=== PATIENT | male | born 1945 | race Two or more races ===

== ENCOUNTER 2018-10-06 13:31 | Inpatient (IN) | payer OTHER ==
[~2018-10-06] VITALS: Ht 170.2 cm; Wt 81.0 kg
[2018-10-06] MEDS ORDERED: SODIUM CHLORIDE 0.9% 500 ML IVB ONE (14:02)
[2018-10-06] MEDS ORDERED: FAMOTIDINE (10MG/ML) 2ML VL IV ONE (14:15)
[2018-10-06] MEDS ORDERED: ONDANSETRON HCL 4 MG/2 ML VIAL IV ONE (14:15)
[2018-10-06] MEDS ORDERED: MORPHINE SULFATE 4 MG/ML SYR/VIAL IV ONE (14:15)
[2018-10-06 15:37] LABS: Albumin 1.5 g/dL (3.4-5.0)
[2018-10-06 15:41] LABS: Bilirubin, Total 0.3 mg/dL (0.2-1.0); Total Protein 4.9 g/dL (6.4-8.2)
[2018-10-06 15:47] LABS: Basophils # (auto) 0 uL; Eosinophils # (auto) 0 uL; Mean Corpuscular Volume 94.6 fL (80.0-100.0); Monocytes # (auto) 0 uL
[2018-10-06 15:52] LABS: Basophils % (auto) 0.3 % (0.0-2.0); Eosinophils % (auto) 0.7 % (0.0-7.0); Lymphocytes % (auto) 15.7 % (10.0-50.0); Monocytes % (auto) 0.7 % (0.0-12.0); Neutrophils % (auto) 82.6 % (37.0-80.0); Nucleated Red Blood Cells % 0.9 %
[2018-10-06 15:53] LABS: Lymphocytes # (auto) 0.2 uL; Neutrophils # (auto) 1.2 uL; Red Blood Cells 4.02 10^6/uL (4.5-5.90)
[2018-10-06 15:54] LABS: Hemoglobin 12.2 g/dL (13.5-17.5); Mean Corpuscular Hemoglobin 30.4 pg (28.0-32.0); Mean Corpuscular Hgb Conc. 32.2 g/dL (32.0-36.0); Platelet Count (auto) 188 10^3/uL (140-450); Red Cell Distribution Width 15.4 % (11.8-14.3)
[2018-10-06 15:56] LABS: White Blood Cell 1.5 10^3/uL (4.4-10.8)
[2018-10-06 16:30] LABS: Lactic Acid w/Reflex 2.8 mmol/L (0.4-2.0)
[2018-10-06] MEDS ORDERED: traMADol HCL 50 MG TAB PO PRN (17:30)
[2018-10-06] MEDS ORDERED: LEVOFLOXACIN 250MG 50 ML IV ONE (17:30)
[2018-10-06] MEDS ORDERED: MORPHINE SULFATE 4 MG/ML SYR/VIAL IV PRN (17:30)
[2018-10-06] MEDS ORDERED: NITROGLYCERIN 0.4 MG SL TAB SL PRN (17:30)
[2018-10-06] MEDS ORDERED: ONDANSETRON HCL 4 MG/2 ML VIAL IV PRN (17:30)
[2018-10-06] MEDS ORDERED: MORPHINE SULF INJ 2 MG/ML SYRINGE 1ML IV PRN (17:30)
[2018-10-06] MEDS ORDERED: ACETAMINOPHEN 500 MG TAB PO PRN (17:30)
[2018-10-06] MEDS ORDERED: TEMAZEPAM 15 MG CAP PO PRN (17:30)
[2018-10-06] MEDS: ACCU-CHEK COMFORT CURVE STRIP VI SCH (20:45)
--- NOTE | 2018-10-06 21:30 | NUR ---
Telemetry admit from [facility] DES[facility] Tyrone admitted to Telemetry unit. Patient oriented to BECKIE MINAYA, primary RN, unit, room, bed, and unit policies regarding patient care and visiting hours. Patient now on continuous telemetry monitoring, tele box # 40 and telemetry reading on arrival to unit is sinus rhythm. Patient placed on bedside oxygen, weighed by bedscale and encouraged to call as needed. All questions and concerns addressed, patient verbalized understanding. Bed is locked in lowest position, side rails x 2 are up, call light is within reach, and bed alarm is on.
[2018-10-06 22:00] VITALS: BP_SYST 160; BP_SYST 90; BP_DIAS 53; BP_DIAS 83
[2018-10-06] MEDS: metroNIDAZOLE 500MG/100ML 100 ML IV SCH (22:00)
--- NOTE | 2018-10-06 23:40 | NUR ---
WOUND PICTURES Patient was noted to have an open skin tear to right forearm. Picture was taken as reference and an optifoam was placed.
[2018-10-06 23:48] VITALS: BP 101/64
[2018-10-07] VITALS (9 sets, daily range): BP systolic 94–109; BP diastolic 56–64
[2018-10-07] MEDS ORDERED: BUPR-40 PO (02:01)
[2018-10-07] MEDS ORDERED: DULO20CA PO (02:01)
[2018-10-07] MEDS ORDERED: ASPI1TAB59 PO (02:01)
[2018-10-07] MEDS ORDERED: ISOS20TA49 PO (02:01)
[2018-10-07] MEDS ORDERED: LISI10TA6 PO (02:01)
[2018-10-07] MEDS ORDERED: TRAM50TA2 PO (02:01)
[2018-10-07] MEDS ORDERED: ATOR20TA50 PO (02:01)
[2018-10-07] MEDS ORDERED: METO25TA62 PO (02:01)
[2018-10-07] MEDS ORDERED: GLIP-116 PO (02:01)
[2018-10-07] MEDS: metroNIDAZOLE 500MG/100ML 100 ML IV SCH ×3 (05:22→22:44)
[2018-10-07] MEDS: ACCU-CHEK COMFORT CURVE STRIP VI SCH ×6 (05:22→20:00)
[2018-10-07] MEDS: DEXTROSE (50%) 50ML SYRG IV PRN ×2 (05:37→13:16)
[2018-10-07 06:03] LABS: Albumin 1.3 g/dL (3.4-5.0); Calcium 6.9 mg/dL (8.5-10.1); Potassium 3.5 mmol/L (3.5-5.1)
[2018-10-07 06:08] LABS: BUN/Creatinine Ratio 5.6; Bilirubin, Total 0.2 mg/dL (0.2-1.0); Total Protein 4.6 g/dL (6.4-8.2)
--- NOTE | 2018-10-07 06:08 | NUR ---
LOW BLOOD SUGAR Patients blood sugar was found to be 53 at 0514. Patient was alert and oriented x 4. Patient denied headache, dizziness, jitteriness, or palpitations. Patient was given three orange juices which he tolerated well. Patient refused eating carmen crackers. After ten minutes blood sugar was rechecked and was found to be 49. A third blood sugar was obtained at 0527 which showed a blood sugar level of 40. Dextrose 50ml was given via IV. Patients blood sugar was rechecked at 0605 and was found to be 105. Patient continues to be alert and oriented x4 and denies headache, dizziness, jitteriness, or palpitations. Bed is locked in lowest position, side rails x 2 are up, call light is within reach, and bed alarm is on.
--- NOTE | 2018-10-07 06:13 | NUR ---
HOSPITALIST PAGED RE: LOW BLOOD SUGAR Hospitalist paged regarding low blood sugar. Patients blood sugar at 0514 was found to be 53. Blood sugar was rechecked at 0606 and was found to be 105. Patient is alert and oriented x 4. Patient denies headache, palpitations, or jitteriness. Awaiting call back.
[2018-10-07 06:14] LABS: Hematocrit 37.4 % (41.0-53.0); Hemoglobin 12.1 g/dL (13.5-17.5); Mean Corpuscular Hgb Conc. 32.3 g/dL (32.0-36.0); Mean Corpuscular Volume 92.9 fL (80.0-100.0); Platelet Count (auto) 160 10^3/uL (140-450); Red Blood Cells 4.03 10^6/uL (4.5-5.90); Red Cell Distribution Width 14.6 % (11.8-14.3); White Blood Cell 15.6 10^3/uL (4.4-10.8)
--- NOTE | 2018-10-07 06:24 | NUR ---
SPOKE WITH DIOGENES DUGAN RE: LOW BLOOD SUGAR AND DIET ORDER Notified DIOGENES Dugan that patients blood sugar level this morning was found to be 53 at 0514. DIOGENES Dugan was made aware that patient was given Dextrose 50ml via IV and upon rechecking patients blood sugar at 0606 it was found to be 105. DIOGENES Dugan is aware that patient is alert and oriented x4 and denies headache, dizziness, or palpitations. Informed DIOGENES Dugan that patient has no diet order and patient denies abdominal pain and states he was sent from the dialysis center due to elevated blood pressure and vomiting. Orders for a consistent carb renal diet received. Order read back and verified. Will implement order as received.
[2018-10-07 06:25] LABS: Basophils % (manual) 0 (0.0-2.0); Eosinophils % (manual) 0 (0-7)
[2018-10-07 06:26] LABS: Blast Cells 0; Promyelocytes % 0; Reactive Lymphocytes 0
--- NOTE | 2018-10-07 07:10 | NUR ---
Opening Shift Note Assumed care of patient, awake and alert. No S/S of distress/SOB or pain. Call light within reach, bed at its lowest position, room free of clutter. Instructed on POC and to call for assist PRN, will continue to monitor.
--- NOTE | 2018-10-07 07:38 | NUR ---
CLOSING SHIFT NOTE Endorsed patient care to Addie MAXWELL.
--- NOTE | 2018-10-07 08:35 | NUR ---
I faxed clinical information to [facility] [phone] including ER notes, H&P, xrays, current labs, current vitals and current medication list.
[2018-10-07] MEDS ORDERED: IOHEXOL 300 MG/ML 100ML BOTTLE IJ ONE (09:17)
[2018-10-07] MEDS ORDERED: PANTOPRAZOLE 40 MG TAB PO SCH (10:00)
[2018-10-07] MEDS ORDERED: LEVOFLOXACIN 250MG 50 ML IV SCH (10:00)
--- NOTE | 2018-10-07 10:03 | NUR ---
PRINTED CIRCUIT BOARD DESIGNER AT BEDSIDE MD LUCAS AT BEDSIDE, AWARE OF PATIENT'S STATUS INCLUDING ABNORMAL LABS, VS. MD AWARE PATIENT HAD CT WITH CONTRAST. PER MD, PATIENT WILL HAVE DIALYSIS TOMORROW. WILL CONT CARE
[2018-10-07] MEDS ORDERED: traMADol HCL 50 MG TAB PO PRN (11:00)
--- NOTE | 2018-10-07 12:17 | NUR ---
HOSPITALIST AT BEDSIDE MD BRASHER AT BEDSIDE, AWARE OF PATIENT'S STATUS, VS INCLUDING DECREASED BP. PT HAD CT WITH CONTRAST, AWAITING RESULT. PER MD PT UNSTABLE FOR TRANSFER TO [facility] AT THIS TIME. CONT CARE
[2018-10-07 12:56] LABS: Band Neutrophils % (manual) 6; Lymphocytes % (manual) 1 (10.0-50.0); Metamyelocytes % 3; Monocytes % (manual) 3 (0-12); Myelocytes % 1
--- NOTE | 2018-10-07 13:02 | NUR ---
DECREASED BS PATIENTS BLOOD SUGAR AT 50, PATIENT PROVIDED WITH JUICE. BS REASSESSED PER PROTOCOL AND IS 47. PATIENT STATES FEELING DIZZY AND LIGHTHEADED "NOT FEEL GOOD", PATIENT GIVEN DEXTROSE PER ORDERED.
--- NOTE | 2018-10-07 13:08 | NUR ---
[facility] JJ LASTING MACHINE OPERATOR BED AT [facility] UPDATED ON POC. PER MD BRASHER "PATIENT UNSTABLE FOR TRANSFER". CONT CARE
--- NOTE | 2018-10-07 14:30 | NUR ---
GI AT BEDSIDE MD NAPOLES AT BEDSIDE. AWAITING ORDERS
--- NOTE | 2018-10-07 14:39 | NUR ---
SPOKE TO FAMILY PT'S DAUGHTER CELSO UPDATED ON PT STATUS AFTER PASSWORD RECEIVED. CONT CARE
[2018-10-07 15:53] LABS: Urine Bacteria NONE SEEN /hpf (None Seen); Urine Blood 2+ /uL (Negative); Urine Hyaline Cast FEW /lpf (0 - 2); Urine Mucus FEW (None Seen); Urine WBC 13 /hpf (0 - 3)
--- NOTE | 2018-10-07 17:21 | NUR ---
Spoke to family spoke to Francheska after password provided. Updated on POC
--- NOTE | 2018-10-07 19:00 | NUR ---
Patient care endorsed endorsed care to Maddison rn. Patient laying down in bed in no acute distress or sob noted. Pt denies any pain. Fall precs in place per protocol.
--- NOTE | 2018-10-07 19:10 | NUR ---
Opening Shift Note Received report from federico Real RN. Assumed care of patient, awake and alert. No S/S of distress/SOB or pain. Instructed on POC and to call for assist PRN, will continue to monitor for changes Q1hr and PRN. Bed placed in lowest position, bed alarm turned on and call light within reach.
[2018-10-07] MEDS: PANTOPRAZOLE 40 MG TAB PO SCH (22:44)
[2018-10-08] VITALS (7 sets, daily range): BP systolic 103–123; BP diastolic 62–93
[2018-10-08] MEDS: ACCU-CHEK COMFORT CURVE STRIP VI SCH ×6 (00:19→20:00)
--- NOTE | 2018-10-08 04:30 | NUR ---
PATIENT'S BLOOD SUGAR IS 61. JUICE GIVEN AND WILL MONITOR.
[2018-10-08] MEDS: metroNIDAZOLE 500MG/100ML 100 ML IV SCH ×3 (06:31→21:52)
[2018-10-08] MEDS ORDERED: SODIUM CHL 0.9% 1000 ML BAG XX ONE (07:00)
--- NOTE | 2018-10-08 07:30 | NUR ---
Opening Shift Note Assumed care of patient, awake and alert. No S/S of distress/SOB or pain. Instructed on POC and to call for assist PRN, will continue to monitor for changes Q1hr and PRN.
--- NOTE | 2018-10-08 07:30 | NUR ---
BLOOD SUGAR RECHECK IS 78. PATIENT IS RESTING IN BED WITH EYES CLOSED. NO DISTRESS NOTED.
--- NOTE | 2018-10-08 08:19 | NUR ---
BLOOD SUGAR 52. PATIENT STATED NOT FEELING HUNGRY BUT WAS ABLE TO DRINK ORANGE JUICE AND A CARTON OF MILK. Addendum: 10/08/18 at 1352 by Edie Narvaez RN ADDENDUM PT DENIES ANY SYMPTOMS OF HYPOGLYCEMIA. PT IS ALERT AND ORIENTED X 4.
[2018-10-08] MEDS: PANTOPRAZOLE 40 MG TAB PO SCH ×2 (10:00→21:52)
--- NOTE | 2018-10-08 10:00 | NUR ---
DR BRASHER AT BEDSIDE. NEW ORDER TO TRANSFER PT TO [facility] AFTER DIALYSIS.
--- NOTE | 2018-10-08 11:40 | NUR ---
PAGED SOCIAL SERVICE RE: TRANSFER TO [facility]
--- NOTE | 2018-10-08 11:53 | NUR ---
SPOKE TO KINGSLEY, SOCIAL SERVICE.
--- NOTE | 2018-10-08 12:30 | NUR ---
BLOOD SUGAR OF 41. PT AWAKE, AOX4. PT STATED HE DOESN'T HAVE AN APPETITE. DENIES ANY SYMPTOMS OF HYPOGLYCEMIA. PT GIVEN DEXTROSE IVP, ORDERED. PT TOLERATED WELL.
[2018-10-08] MEDS: DEXTROSE (50%) 50ML SYRG IV PRN ×2 (12:40→15:31)
--- NOTE | 2018-10-08 13:34 | NUR ---
STILL WAITING FOR DIALYSIS.
--- NOTE | 2018-10-08 13:45 | NUR ---
ABLE TO LOCATE GAMMA OPERATOR BUT PATIENT IS NOT ON HER LIST. PER RN, SHE WILL CALL THE GRAVEL MACHINE OPERATOR AND WILL CALL ME IN 10 MINS.
[2018-10-08 13:53] LABS: Hematocrit 33.2 % (41.0-53.0); Mean Corpuscular Hemoglobin 30.5 pg (28.0-32.0); Mean Corpuscular Hgb Conc. 33.1 g/dL (32.0-36.0); Mean Corpuscular Volume 92.3 fL (80.0-100.0); Platelet Count (auto) 140 10^3/uL (140-450); Red Cell Distribution Width 15.4 % (11.8-14.3); White Blood Cell 21.8 10^3/uL (4.4-10.8)
[2018-10-08 14:08] LABS: Basophils % (manual) 0 (0.0-2.0); Blast Cells 0; Eosinophils % (manual) 0 (0-7); Metamyelocytes % 0; Myelocytes % 0; Promyelocytes % 0; Reactive Lymphocytes 0
[2018-10-08 14:23] LABS: % Iron Saturation 7.4 % (20-55)
[2018-10-08 14:24] LABS: Albumin 1.2 g/dL (3.4-5.0); Potassium 4.5 mmol/L (3.5-5.1)
[2018-10-08 14:27] LABS: BUN/Creatinine Ratio 8.1; Bilirubin, Total 0.3 mg/dL (0.2-1.0); Total Protein 4.6 g/dL (6.4-8.2)
--- NOTE | 2018-10-08 14:45 | NUR ---
WAITING FOR [facility] TO CALL RE: TRANSFER. PAPERWORK HAD BEEN FAXED PER KINGSLEY'S (SOCIAL SERVICE) INSTRUCTION.
--- NOTE | 2018-10-08 15:21 | NUR ---
BS 40 PT ALERT AND ORIENTED. STILL STATING NO APPETITE. GIVEN DEXTROSE IVP ORDERED.
[2018-10-08 15:37] LABS: Band Neutrophils % (manual) 18; Lymphocytes % (manual) 11 (10.0-50.0); Monocytes % (manual) 3 (0-12)
--- NOTE | 2018-10-08 16:01 | NUR ---
CALLED TENA RE: FAXED PAPERWORK. SPOKE TO LEORA. PER LEORA, THEIR TEAM IS STILL PROCESSING THE PAPERS AND WILL GIVE US A CALL SOON THEY'RE READY.
--- NOTE | 2018-10-08 16:11 | NUR ---
BLOOD SUGAR RECHECKED: 94
--- NOTE | 2018-10-08 16:15 | NUR ---
TRANSFER NOTE SPOKE TO DR OLMSTEAD. PER , THERE'S NO AVAILABLE GLASS WOOL BLANKET MACHINE FEEDER AT THIS TIME BUT PT IS STABLE TO TRANSFER WITHOUT GETTING DIALYZED. MADE AWARE OF PT'S LOW BLOOD SUGAR ALL DAY. NEW ORDER RECEIVED AND CARRIED OUT.
[2018-10-08] MEDS ORDERED: DEXTROSE 10% 1,000 ML IV ONE (16:30)
[2018-10-08] MEDS ORDERED: DEXTROSE 10% 1,000 ML IV SCH (16:30)
--- NOTE | 2018-10-08 16:48 | NUR ---
SPOKE TO ERICK- [facility]
--- NOTE | 2018-10-08 19:00 | NUR ---
SPOKE TO TENA GONZALEZ. THERE WILL BE A BED AVAILABLE. SHE WILL CALL BACK FOR A BED NUMBER ONCE IT'S READY. REPORT ENDORSED TO CHRIS NORWOOD RN.
--- NOTE | 2018-10-08 19:30 | NUR ---
Opening Shift Note Received report from federico Irizarry RN. Assumed care of patient, awake and alert. No S/S of distress/SOB or pain. Patient is drowsy. Instructed on POC and to call for assist PRN, will continue to monitor for changes Q1hr and PRN.
--- NOTE | 2018-10-08 20:00 | NUR ---
Blood sugar check is 40mg/dl and 45mg/dl respectively. Juice given.
--- NOTE | 2018-10-08 20:25 | NUR ---
Ivis from [facility] called and gave report.
--- NOTE | 2018-10-08 20:53 | NUR ---
blood sugar checked is 53 mg/dl.
--- NOTE | 2018-10-08 21:09 | NUR ---
blood sugar checked is 81 mg/dl. Patient is alert and oriented, no distress noted, denies pain. Patient signed discharged forms.
--- NOTE | 2018-10-08 21:40 | NUR ---
[facility] arrived and report given to Kadeem transportation job titles. Gathered patient belongings.
--- NOTE | 2018-10-08 21:44 | NUR ---
Discharge instructions given as ordered. Encourage to follow up with PMD as instructed. All questions and concerns addressed. Patient verbalized understanding. Medication reconciliation form completed and copy given to patient. 2 IV to right arm intact and flushes easily. Telemetry unit returned to ICU. Patient taken by [facility] with personal belongings and discharged papers. Report given Kadeem, transportation mechanic, including transport packet, and all questions and concerns addressed. No distress noted at time of departure.
[2018-10-09] MEDS ORDERED: LEVOFLOXACIN 250MG 50 ML IV SCH (10:00)
[2018-10-10 14:08] LABS: Hepatitis A Ab IgM Negative; Hepatitis B Core IgM Negative; Hepatitis B Surface Antigen Negative (Negative)
[2018-10-11 10:57] LABS: Hepatitis C Antibody Positive (Negative)
== END 2018-10-08 21:44 | disposition short-term general hospital (02) | DRG 871 ==
LOC: EDBD 13:31 → ER 13:40 → TELE 17:33 → TELE-WESTW 21:19
PROVIDERS: ADMIT Internal Medicine; ATTEND Family Medicine
DX: A41.9 Sepsis, unspecified organism (principal); N18.6 End stage renal disease; E43 Unspecified severe protein-calorie malnutrition; J18.1 Lobar pneumonia, unspecified organism; I13.2 Hypertensive heart and chronic kidney disease with heart failure and with stage 5 chronic kidney disease, or end stage renal disease; J44.0 Chronic obstructive pulmonary disease with (acute) lower respiratory infection; K86.1 Other chronic pancreatitis; E83.51 Hypocalcemia; E11.22 Type 2 diabetes mellitus with diabetic chronic kidney disease; E11.65 Type 2 diabetes mellitus with hyperglycemia; D63.8 Anemia in other chronic diseases classified elsewhere; E11.649 Type 2 diabetes mellitus with hypoglycemia without coma; I50.9 Heart failure, unspecified; Z82.3 Family history of stroke; Z82.49 Family history of ischemic heart disease and other diseases of the circulatory system; Z68.27 Body mass index [BMI] 27.0-27.9, adult; Z99.2 Dependence on renal dialysis; Z83.3 Family history of diabetes mellitus; Z87.891 Personal history of nicotine dependence; Z90.89 Acquired absence of other organs; Z79.84 Long term (current) use of oral hypoglycemic drugs
CPT/HCPCS: 36415; 36600; 70450; 71045; 74176; 74177; 80053; 80074; 81001; 82140; 82150; 82378; 82728; 82805; 82962; 83036; 83540; 83550; 83605; 83690; 83880; 84484; 85007; 85025; 85027; 87040; 87081; 87086; 93005; 94761; 96361; 96365; 96375; G0378; J2405; J3490; J7042

== ENCOUNTER 2019-07-15 15:43 | Emergency (ER) | payer OTHER ==
[~2019-07-15] VITALS: Ht 167.6 cm; Wt 77.1 kg
[~2019-07-15 15:43] MED LIST: ASPI1TAB59 PO; ATOR20TA50 PO; BUPR-40 PO; DULO20CA PO; GLIP10TA9 PO; ISOS20TA49 PO; LISI10TA6 PO; METO25TA93 PO; TRAM50TA2 PO
[2019-07-15 16:34] LABS: Basophils # (auto) 0 uL; Basophils % (auto) 0.8 % (0.0-2.0); Eosinophils # (auto) 0.2 uL; Eosinophils % (auto) 5.1 % (0.0-7.0); Hematocrit 34.3 % (41.0-53.0); Hemoglobin 11.3 g/dL (13.5-17.5); Lymphocytes % (auto) 25.1 % (10.0-50.0); Mean Corpuscular Hemoglobin 29.8 pg (28.0-32.0); Mean Corpuscular Hgb Conc. 32.9 g/dL (32.0-36.0); Mean Corpuscular Volume 90.4 fL (80.0-100.0); Monocytes # (auto) 0.5 uL; Monocytes % (auto) 12.1 % (0.0-12.0); Neutrophils # (auto) 2.2 uL; Neutrophils % (auto) 56.9 % (37.0-80.0); Nucleated Red Blood Cells % 0.1 %; Platelet Count (auto) 198 10^3/uL (140-450); Red Cell Distribution Width 15.9 % (11.8-14.3); White Blood Cell 3.9 10^3/uL (4.4-10.8)
[2019-07-15 16:49] LABS: Albumin 2.1 g/dL (3.4-5.0); Calcium 7.9 mg/dL (8.5-10.1); Potassium 3.4 mmol/L (3.5-5.1)
[2019-07-15 16:51] LABS: INR 0.94 (0.9-1.15); Partial Thromboplastin Time 24.5 sec (23.64-32.05)
[2019-07-15 16:53] LABS: BUN/Creatinine Ratio 3.8; Bilirubin, Total 0.3 mg/dL (0.2-1.0); Total Protein 6.6 g/dL (6.4-8.2)
[2019-07-15] MEDS ORDERED: POTASSIUM EFFERVESENT TAB 25 MEQ PO ONE (17:15)
[2019-07-15 17:17] VITALS: BP 175/76
== END 2019-07-15 18:42 | disposition home or self-care (01) ==
LOC: ER 15:43 → EDBD 15:43 → ER 18:42
DX: T82.838A Hemorrhage due to vascular prosthetic devices, implants and grafts, initial encounter (principal); E11.22 Type 2 diabetes mellitus with diabetic chronic kidney disease; I13.2 Hypertensive heart and chronic kidney disease with heart failure and with stage 5 chronic kidney disease, or end stage renal disease; I50.9 Heart failure, unspecified; N18.6 End stage renal disease; J44.9 Chronic obstructive pulmonary disease, unspecified; Z87.891 Personal history of nicotine dependence; Z99.2 Dependence on renal dialysis; Z79.899 Other long term (current) drug therapy
CPT/HCPCS: 36415; 80053; 82962; 85025; 85610; 85730; 93005

== ENCOUNTER 2020-05-13 12:20 | Inpatient (IN) | payer OTHER, MEDICAID ==
[~2020-05-13] VITALS: Ht 167.6 cm; Wt 64.9 kg
[~2020-05-13 12:20] MED LIST changes: +LISI-648 PO; -LISI10TA6 PO
[2020-05-13] MEDS ORDERED: ACETAMINOPHEN 500 MG TAB PO ONE (14:30)
[2020-05-13 14:49] LABS: Basophils # (auto) 0 10 ^3/uL (0-0.2); Eosinophils # (auto) 0 10 ^3/uL (0-0.8); Hematocrit 20.3 % (41.0-53.0); Lymphocytes # (auto) 0.2 10 ^3/uL (0.4-5.4); Mean Corpuscular Hemoglobin 31.9 pg (28.0-32.0); Mean Corpuscular Hgb Conc. 33.8 g/dL (32.0-36.0); Monocytes # (auto) 0.2 10 ^3/uL (0-1.3); Neutrophils # (auto) 3.5 10 ^3/uL (1.6-8.6); Red Blood Cells 2.15 10^6/uL (4.5-5.90); White Blood Cell 3.9 10^3/uL (4.4-10.8)
[2020-05-13 14:51] LABS: Basophils % (auto) 0.4 % (0.0-2.0); Eosinophils % (auto) 0.3 % (0.0-7.0); Lymphocytes % (auto) 5.7 % (10.0-50.0); Mean Corpuscular Volume 94.5 fL (80.0-100.0); Monocytes % (auto) 4.3 % (0.0-12.0); Neutrophils % (auto) 89.3 % (37.0-80.0); Nucleated Red Blood Cells % 0.1 %; Platelet Count (auto) 141 10^3/uL (140-450); Red Cell Distribution Width 16.7 % (11.8-14.3)
[2020-05-13 15:06] LABS: Albumin 2.6 g/dL (3.4-5.0); Calcium 7.9 mg/dL (8.5-10.1); Magnesium 2.6 mg/dL (1.6-2.6); Potassium 4.1 mmol/L (3.5-5.1)
[2020-05-13 15:09] LABS: INR 1.03 (0.9-1.15)
[2020-05-13 15:11] LABS: BUN/Creatinine Ratio 5.1; Bilirubin, Total 0.4 mg/dL (0.2-1.0); Total Protein 7.2 g/dL (6.4-8.2)
[2020-05-13] MEDS ORDERED: ASPirin 325 MG TAB PO ONE (15:45)
[2020-05-13] MEDS ORDERED: ENOXAPARIN SOD 100 MG/1 ML SYRINGE SC ONE (15:45)
[2020-05-13 16:20] LABS: Hemoglobin 6.8 g/dL (13.5-17.5)
[2020-05-13] MEDS ORDERED: NITROGLYCERIN 0.4MG/HR TOPICAL PATCH TD ONE (18:15)
[2020-05-13] MEDS ORDERED: NITROGLYCERIN 0.4 MG SL TAB SL PRN (18:15)
[2020-05-13] MEDS ORDERED: MORPHINE SULF INJ 2 MG/ML SYRINGE 1ML IV PRN (18:15)
[2020-05-13] MEDS ORDERED: ACETAMINOPHEN 500 MG TAB PO PRN (18:15)
[2020-05-13] MEDS ORDERED: CLOPIDOGREL 300 MG TAB PO ONE (18:15)
[2020-05-13] MEDS ORDERED: ENOXAPARIN SOD 80 MG/0.8ML SYRINGE SC ONE (18:45)
[2020-05-13] MEDS: METOPROLOL TARTRATE 25 MG TAB PO SCH (22:00)
[2020-05-13] MEDS: BUDESONIDE (INHALATION) 180 MCG IH IN SCH (22:00)
[2020-05-13] MEDS: ATORVASTATIN 20 MG TAB PO SCH (23:25)
[2020-05-13] MEDS: MORPHINE SULF INJ 2 MG/ML SYRINGE 1ML IV PRN (23:38)
[2020-05-13] MEDS: ONDANSETRON HCL 4 MG/2 ML VIAL IV PRN (23:38)
[2020-05-14] VITALS (7 sets, daily range): BP systolic 103–120; BP diastolic 42–58
[2020-05-14] MEDS: NITROGLYCERIN 0.4MG/HR TOPICAL PATCH TD SCH (10:00)
[2020-05-14] MEDS: METOPROLOL TARTRATE 25 MG TAB PO SCH ×2 (10:00→22:36)
[2020-05-14] MEDS: CLOPIDOGREL BISULFATE 75 MG TAB PO SCH (11:30)
[2020-05-14] MEDS: FAMOTIDINE 20 MG TAB PO SCH (11:30)
[2020-05-14] MEDS: ASPirin-EC 81 mg tab PO SCH (11:30)
[2020-05-14] MEDS: ZINC SULFATE 220mg CAP or TAB PO SCH (11:30)
[2020-05-14] MEDS: ASCORBIC ACID 1,000 MG TAB PO SCH (11:31)
[2020-05-14] MEDS: cefTRIAXone 1GM/50ML D5W 50 ML IV SCH (12:22)
[2020-05-14] MEDS: CHOLECALCIFEROL (VITD3) 2,000 UNIT CAP PO SCH (12:24)
[2020-05-14] MEDS: AZITHROMYCIN 500MG/ 250ML 250 ML IV SCH (12:40)
[2020-05-14] MEDS: DexAMETHasone SOD PHOS 10MG/1ML VIAL INJ IV SCH (12:40)
[2020-05-14] MEDS: ENOXAPARIN SOD 80 MG/0.8ML SYRINGE SC SCH (16:58)
[2020-05-14] MEDS: BUDESONIDE (INHALATION) 180 MCG IH IN SCH (22:00)
[2020-05-14] MEDS: ATORVASTATIN 20 MG TAB PO SCH (22:45)
[2020-05-15] MEDS ORDERED: LORazepam 2MG/ML-1ML VIAL IV ONE (03:45)
[2020-05-15 04:16] LABS: Basophils # (auto) 0 10 ^3/uL (0-0.2); Basophils % (auto) 0.4 % (0.0-2.0); Eosinophils # (auto) 0 10 ^3/uL (0-0.8); Hematocrit 22.4 % (41.0-53.0); Hemoglobin 7.5 g/dL (13.5-17.5); Lymphocytes # (auto) 0.2 10 ^3/uL (0.4-5.4); Lymphocytes % (auto) 7.8 % (10.0-50.0); Mean Corpuscular Hemoglobin 30.4 pg (28.0-32.0); Mean Corpuscular Hgb Conc. 33.6 g/dL (32.0-36.0); Mean Corpuscular Volume 90.5 fL (80.0-100.0); Monocytes # (auto) 0.2 10 ^3/uL (0-1.3); Monocytes % (auto) 6.5 % (0.0-12.0); Neutrophils # (auto) 2.2 10 ^3/uL (1.6-8.6); Neutrophils % (auto) 85.3 % (37.0-80.0); Nucleated Red Blood Cells % 0.2 %; Platelet Count (auto) 119 10^3/uL (140-450); Red Blood Cells 2.48 10^6/uL (4.5-5.90); Red Cell Distribution Width 19.5 % (11.8-14.3); White Blood Cell 2.6 10^3/uL (4.4-10.8)
[2020-05-15 04:35] LABS: Potassium 4.9 mmol/L (3.5-5.1)
[2020-05-15 04:42] LABS: Albumin 2.1 g/dL (3.4-5.0); BUN/Creatinine Ratio 6.7; Bilirubin, Total 0.4 mg/dL (0.2-1.0); Calcium 8.1 mg/dL (8.5-10.1); Magnesium 2.8 mg/dL (1.6-2.6); Total Protein 6.3 g/dL (6.4-8.2)
[2020-05-15 05:27] LABS: % Iron Saturation 25.2 % (20-55)
[2020-05-15] MEDS ORDERED: SODIUM CHL 0.9% 1000 ML BAG XX ONE (07:00)
[2020-05-15] MEDS: cefTRIAXone 1GM/50ML D5W 50 ML IV SCH (08:08)
[2020-05-15] MEDS: BUDESONIDE (INHALATION) 180 MCG IH IN SCH ×2 (08:14→22:00)
[2020-05-15] MEDS: DexAMETHasone SOD PHOS 10MG/1ML VIAL INJ IV SCH (10:29)
[2020-05-15] MEDS: ZINC SULFATE 220mg CAP or TAB PO SCH (10:30)
[2020-05-15] MEDS: AZITHROMYCIN 500MG/ 250ML 250 ML IV SCH (10:30)
[2020-05-15] MEDS: METOPROLOL TARTRATE 25 MG TAB PO SCH ×2 (10:31→21:46)
[2020-05-15] MEDS: ASPirin-EC 81 mg tab PO SCH (10:31)
[2020-05-15] MEDS: NITROGLYCERIN 0.4MG/HR TOPICAL PATCH TD SCH (10:32)
[2020-05-15] MEDS: CLOPIDOGREL BISULFATE 75 MG TAB PO SCH (10:32)
[2020-05-15] MEDS: ASCORBIC ACID 1,000 MG TAB PO SCH (10:32)
[2020-05-15] MEDS: CHOLECALCIFEROL (VITD3) 2,000 UNIT CAP PO SCH (10:45)
[2020-05-15] MEDS: ENOXAPARIN SOD 80 MG/0.8ML SYRINGE SC SCH (19:01)
[2020-05-15] MEDS ORDERED: EPOETIN ALFA 10,000 UNIT/1 ML VIAL SC ONE (21:00)
[2020-05-15] MEDS: ATORVASTATIN 20 MG TAB PO SCH (21:46)
[2020-05-16 05:11] LABS: Basophils # (auto) 0 10 ^3/uL (0-0.2); Eosinophils # (auto) 0 10 ^3/uL (0-0.8); Hematocrit 23.2 % (41.0-53.0); Hemoglobin 7.7 g/dL (13.5-17.5); Lymphocytes # (auto) 0.3 10 ^3/uL (0.4-5.4); Mean Corpuscular Hemoglobin 30.4 pg (28.0-32.0); Mean Corpuscular Volume 91.3 fL (80.0-100.0); Monocytes # (auto) 0.2 10 ^3/uL (0-1.3); Red Blood Cells 2.54 10^6/uL (4.5-5.90)
[2020-05-16 05:16] LABS: Basophils % (auto) 0.2 % (0.0-2.0); Eosinophils % (auto) 0.4 % (0.0-7.0); Mean Corpuscular Hgb Conc. 33.4 g/dL (32.0-36.0); Monocytes % (auto) 3.6 % (0.0-12.0); Neutrophils # (auto) 4.7 10 ^3/uL (1.6-8.6); Neutrophils % (auto) 89.8 % (37.0-80.0); Nucleated Red Blood Cells % 0.3 %; Platelet Count (auto) 157 10^3/uL (140-450); Red Cell Distribution Width 19.2 % (11.8-14.3); White Blood Cell 5.2 10^3/uL (4.4-10.8)
[2020-05-16] MEDS: HYDROcodone-ACET 5/325MG TAB PO PRN (05:16)
[2020-05-16 05:24] LABS: BUN/Creatinine Ratio 6.3
[2020-05-16] MEDS: ASPirin-EC 81 mg tab PO SCH (08:01)
[2020-05-16] MEDS: AZITHROMYCIN 500MG/ 250ML 250 ML IV SCH (08:01)
[2020-05-16] MEDS: METOPROLOL TARTRATE 25 MG TAB PO SCH (08:01)
[2020-05-16] MEDS: cefTRIAXone 1GM/50ML D5W 50 ML IV SCH (08:01)
[2020-05-16] MEDS: DexAMETHasone SOD PHOS 10MG/1ML VIAL INJ IV SCH (08:01)
[2020-05-16] MEDS: ASCORBIC ACID 1,000 MG TAB PO SCH (08:02)
[2020-05-16] MEDS: NITROGLYCERIN 0.4MG/HR TOPICAL PATCH TD SCH (08:02)
[2020-05-16] MEDS: FAMOTIDINE 20 MG TAB PO SCH (08:02)
[2020-05-16] MEDS: CLOPIDOGREL BISULFATE 75 MG TAB PO SCH (08:02)
[2020-05-16] MEDS: CHOLECALCIFEROL (VITD3) 2,000 UNIT CAP PO SCH (08:02)
[2020-05-16] MEDS: ZINC SULFATE 220mg CAP or TAB PO SCH (10:00)
[2020-05-16] MEDS: BUDESONIDE (INHALATION) 180 MCG IH IN SCH ×2 (10:00→22:00)
[2020-05-16] MEDS: ENOXAPARIN SOD 80 MG/0.8ML SYRINGE SC SCH (17:00)
[2020-05-17] MEDS: ATORVASTATIN 20 MG TAB PO SCH ×2 (02:32→20:33)
[2020-05-17] MEDS: METOPROLOL TARTRATE 25 MG TAB PO SCH ×3 (02:33→20:32)
[2020-05-17 06:49] LABS: Basophils # (auto) 0 10 ^3/uL (0-0.2); Basophils % (auto) 0.1 % (0.0-2.0); Eosinophils # (auto) 0 10 ^3/uL (0-0.8); Hemoglobin 8.4 g/dL (13.5-17.5); Lymphocytes # (auto) 0.5 10 ^3/uL (0.4-5.4); Monocytes # (auto) 0.3 10 ^3/uL (0-1.3); Neutrophils # (auto) 3.7 10 ^3/uL (1.6-8.6); Nucleated Red Blood Cells % 0.3 %; Red Blood Cells 2.75 10^6/uL (4.5-5.90)
[2020-05-17 06:59] LABS: Hematocrit 24.7 % (41.0-53.0); Lymphocytes % (auto) 11.2 % (10.0-50.0); Mean Corpuscular Hemoglobin 30.5 pg (28.0-32.0); Mean Corpuscular Hgb Conc. 34.1 g/dL (32.0-36.0); Mean Corpuscular Volume 89.5 fL (80.0-100.0); Monocytes % (auto) 7.3 % (0.0-12.0); Neutrophils % (auto) 81.4 % (37.0-80.0); Platelet Count (auto) 186 10^3/uL (140-450); Red Cell Distribution Width 18.5 % (11.8-14.3); White Blood Cell 4.6 10^3/uL (4.4-10.8)
[2020-05-17 07:05] LABS: Potassium 4.2 mmol/L (3.5-5.1)
[2020-05-17 07:34] LABS: BUN/Creatinine Ratio 7.4; Calcium 8.4 mg/dL (8.5-10.1); Magnesium 2.8 mg/dL (1.6-2.6)
[2020-05-17] MEDS: BUDESONIDE (INHALATION) 180 MCG IH IN SCH ×2 (10:00→22:00)
[2020-05-17] MEDS: NITROGLYCERIN 0.4MG/HR TOPICAL PATCH TD SCH (10:00)
[2020-05-17] MEDS: cefTRIAXone 1GM/50ML D5W 50 ML IV SCH (12:08)
[2020-05-17] MEDS: AZITHROMYCIN 500MG/ 250ML 250 ML IV SCH (12:08)
[2020-05-17] MEDS: DexAMETHasone SOD PHOS 10MG/1ML VIAL INJ IV SCH (12:08)
[2020-05-17] MEDS: CLOPIDOGREL BISULFATE 75 MG TAB PO SCH (12:09)
[2020-05-17] MEDS: ASCORBIC ACID 1,000 MG TAB PO SCH (12:09)
[2020-05-17] MEDS: ASPirin-EC 81 mg tab PO SCH (12:09)
[2020-05-17] MEDS: ZINC SULFATE 220mg CAP or TAB PO SCH (12:09)
[2020-05-17] MEDS: CHOLECALCIFEROL (VITD3) 2,000 UNIT CAP PO SCH (12:09)
[2020-05-17] MEDS: ENOXAPARIN SOD 80 MG/0.8ML SYRINGE SC SCH (19:09)
[2020-05-17] MEDS: HYDROcodone-ACET 5/325MG TAB PO PRN (22:11)
[2020-05-18] MEDS ORDERED: LORazepam 2MG/ML-1ML VIAL ONE ×2 (03:21→05:52)
[2020-05-18] MEDS ORDERED: LORazepam 2MG/ML-1ML VIAL IV ONE (03:30)
[2020-05-18] MEDS: MORPHINE SULF INJ 2 MG/ML SYRINGE 1ML IV PRN ×3 (04:29→23:48)
[2020-05-18] MEDS ORDERED: diphenhdrAMINE HCL 50 MG/1 ML VL ONE (05:52)
[2020-05-18] MEDS ORDERED: HALOPERIDOL LACTATE 5 MG/ML INJ VIAL ONE (05:52)
[2020-05-18] MEDS ORDERED: SODIUM CHL 0.9% 1000 ML BAG XX ONE (07:00)
[2020-05-18 08:21] LABS: Hematocrit 18.8 % (41.0-53.0)
[2020-05-18 08:40] LABS: Hemoglobin 6.4 g/dL (13.5-17.5)
[2020-05-18 08:58] LABS: % Iron Saturation 36.5 % (20-55)
[2020-05-18] MEDS: FAMOTIDINE 20 MG TAB PO SCH (09:45)
[2020-05-18] MEDS: AZITHROMYCIN 500MG/ 250ML 250 ML IV SCH (09:45)
[2020-05-18] MEDS: NITROGLYCERIN 0.4MG/HR TOPICAL PATCH TD SCH (09:45)
[2020-05-18] MEDS: METOPROLOL TARTRATE 25 MG TAB PO SCH ×2 (09:45→22:00)
[2020-05-18] MEDS: ASPirin-EC 81 mg tab PO SCH (09:45)
[2020-05-18] MEDS: CHOLECALCIFEROL (VITD3) 2,000 UNIT CAP PO SCH (09:45)
[2020-05-18] MEDS: ZINC SULFATE 220mg CAP or TAB PO SCH (09:45)
[2020-05-18] MEDS: CLOPIDOGREL BISULFATE 75 MG TAB PO SCH (09:45)
[2020-05-18] MEDS: ASCORBIC ACID 1,000 MG TAB PO SCH (09:45)
[2020-05-18] MEDS: cefTRIAXone 1GM/50ML D5W 50 ML IV SCH (09:45)
[2020-05-18] MEDS: DexAMETHasone SOD PHOS 10MG/1ML VIAL INJ IV SCH (09:45)
[2020-05-18] MEDS: BUDESONIDE (INHALATION) 180 MCG IH IN SCH ×2 (10:00→22:00)
[2020-05-18] MEDS: HALOPERIDOL LACTATE 5 MG/ML INJ VIAL IM PRN ×2 (13:02→23:49)
[2020-05-18] MEDS: ENOXAPARIN SOD 80 MG/0.8ML SYRINGE SC SCH (17:00)
[2020-05-18] MEDS: ONDANSETRON HCL 4 MG/2 ML VIAL IV PRN ×2 (19:12→23:48)
[2020-05-18] MEDS ORDERED: EPOETIN ALFA 10,000 UNIT/1 ML VIAL SC ONE (21:00)
[2020-05-18] MEDS: ATORVASTATIN 20 MG TAB PO SCH (22:00)
[2020-05-19 03:34] LABS: Basophils # (auto) 0 10 ^3/uL (0-0.2); Basophils % (auto) 0.1 % (0.0-2.0); Eosinophils # (auto) 0 10 ^3/uL (0-0.8); Hematocrit 17.4 % (41.0-53.0); Lymphocytes # (auto) 0.3 10 ^3/uL (0.4-5.4); Lymphocytes % (auto) 5.9 % (10.0-50.0); Mean Corpuscular Hgb Conc. 34.7 g/dL (32.0-36.0); Mean Corpuscular Volume 89.6 fL (80.0-100.0); Monocytes # (auto) 0.5 10 ^3/uL (0-1.3); Monocytes % (auto) 9.6 % (0.0-12.0); Neutrophils # (auto) 4.8 10 ^3/uL (1.6-8.6); Neutrophils % (auto) 84.4 % (37.0-80.0); Nucleated Red Blood Cells % 0.3 %; Platelet Count (auto) 179 10^3/uL (140-450); Red Blood Cells 1.94 10^6/uL (4.5-5.90); Red Cell Distribution Width 18.5 % (11.8-14.3); White Blood Cell 5.6 10^3/uL (4.4-10.8)
[2020-05-19 04:04] LABS: BUN/Creatinine Ratio 7.6; Calcium 8.2 mg/dL (8.5-10.1); Magnesium 2.6 mg/dL (1.6-2.6); Potassium 4.5 mmol/L (3.5-5.1)
[2020-05-19] MEDS: HALOPERIDOL LACTATE 5 MG/ML INJ VIAL IM PRN ×2 (05:57→12:00)
[2020-05-19] MEDS: MORPHINE SULF INJ 2 MG/ML SYRINGE 1ML IV PRN ×2 (05:57→20:05)
[2020-05-19] MEDS: ONDANSETRON HCL 4 MG/2 ML VIAL IV PRN ×2 (05:57→20:05)
[2020-05-19] MEDS: ASPirin-EC 81 mg tab PO SCH (08:20)
[2020-05-19] MEDS: cefTRIAXone 1GM/50ML D5W 50 ML IV SCH (08:20)
[2020-05-19] MEDS: ZINC SULFATE 220mg CAP or TAB PO SCH (08:20)
[2020-05-19] MEDS: ASCORBIC ACID 1,000 MG TAB PO SCH (08:21)
[2020-05-19] MEDS: CHOLECALCIFEROL (VITD3) 2,000 UNIT CAP PO SCH (08:21)
[2020-05-19] MEDS: METOPROLOL TARTRATE 25 MG TAB PO SCH ×2 (08:21→22:50)
[2020-05-19] MEDS: CLOPIDOGREL BISULFATE 75 MG TAB PO SCH (08:21)
[2020-05-19] MEDS: DexAMETHasone SOD PHOS 10MG/1ML VIAL INJ IV SCH (09:04)
[2020-05-19] MEDS: NITROGLYCERIN 0.4MG/HR TOPICAL PATCH TD SCH (09:04)
[2020-05-19] MEDS: AZITHROMYCIN 500MG/ 250ML 250 ML IV SCH (09:04)
[2020-05-19] MEDS: BUDESONIDE (INHALATION) 180 MCG IH IN SCH ×2 (12:28→22:00)
[2020-05-19] MEDS ORDERED: LORazepam 2MG/ML-1ML VIAL IV ONE (15:15)
[2020-05-19] MEDS: hydrALAZINE HCL 20 MG/ML VL IV PRN ×2 (16:48→22:56)
[2020-05-19] MEDS: ENOXAPARIN SOD 80 MG/0.8ML SYRINGE SC SCH (17:00)
[2020-05-19] MEDS: ATORVASTATIN 20 MG TAB PO SCH (22:50)
[2020-05-20] MEDS: HALOPERIDOL LACTATE 5 MG/ML INJ VIAL IM PRN ×2 (00:31→14:17)
[2020-05-20] MEDS: hydrALAZINE HCL 20 MG/ML VL IV PRN ×2 (04:18→16:43)
[2020-05-20 05:15] LABS: Basophils # (auto) 0 10 ^3/uL (0-0.2); Eosinophils # (auto) 0 10 ^3/uL (0-0.8); Lymphocytes # (auto) 0.4 10 ^3/uL (0.4-5.4); Monocytes # (auto) 0.8 10 ^3/uL (0-1.3); Nucleated Red Blood Cells % 0.3 %; Red Blood Cells 2.13 10^6/uL (4.5-5.90)
[2020-05-20 05:22] LABS: Basophils % (auto) 0.1 % (0.0-2.0); Hematocrit 19.1 % (41.0-53.0); Lymphocytes % (auto) 4.4 % (10.0-50.0); Mean Corpuscular Hemoglobin 30.3 pg (28.0-32.0); Mean Corpuscular Hgb Conc. 33.9 g/dL (32.0-36.0); Mean Corpuscular Volume 89.6 fL (80.0-100.0); Monocytes % (auto) 8.6 % (0.0-12.0); Neutrophils # (auto) 8.1 10 ^3/uL (1.6-8.6); Neutrophils % (auto) 86.9 % (37.0-80.0); Platelet Count (auto) 235 10^3/uL (140-450); Red Cell Distribution Width 18.8 % (11.8-14.3); White Blood Cell 9.4 10^3/uL (4.4-10.8)
[2020-05-20 05:28] LABS: BUN/Creatinine Ratio 8.2; Calcium 8.4 mg/dL (8.5-10.1); Magnesium 2.9 mg/dL (1.6-2.6); Potassium 4.9 mmol/L (3.5-5.1)
[2020-05-20 05:56] LABS: Hemoglobin 6.5 g/dL (13.5-17.5)
[2020-05-20] MEDS ORDERED: SODIUM CHL 0.9% 1000 ML BAG XX ONE (07:00)
[2020-05-20] MEDS: DexAMETHasone SOD PHOS 10MG/1ML VIAL INJ IV SCH (08:38)
[2020-05-20] MEDS: ZINC SULFATE 220mg CAP or TAB PO SCH (08:38)
[2020-05-20] MEDS: cefTRIAXone 1GM/50ML D5W 50 ML IV SCH (08:38)
[2020-05-20] MEDS: ASPirin-EC 81 mg tab PO SCH (08:39)
[2020-05-20] MEDS: METOPROLOL TARTRATE 25 MG TAB PO SCH ×2 (08:39→21:59)
[2020-05-20] MEDS: CLOPIDOGREL BISULFATE 75 MG TAB PO SCH (08:39)
[2020-05-20] MEDS: FAMOTIDINE 20 MG TAB PO SCH (08:39)
[2020-05-20] MEDS: ASCORBIC ACID 1,000 MG TAB PO SCH (08:39)
[2020-05-20] MEDS: CHOLECALCIFEROL (VITD3) 2,000 UNIT CAP PO SCH (08:39)
[2020-05-20] MEDS: NITROGLYCERIN 0.4MG/HR TOPICAL PATCH TD SCH (09:21)
[2020-05-20] MEDS: AZITHROMYCIN 500MG/ 250ML 250 ML IV SCH (09:21)
[2020-05-20] MEDS: BUDESONIDE (INHALATION) 180 MCG IH IN SCH ×2 (09:37→19:41)
[2020-05-20 11:15] VITALS: BP 183/62
[2020-05-20 11:30] VITALS: BP 177/67
[2020-05-20 11:41] VITALS: BP 194/71
[2020-05-20 11:50] VITALS: BP 187/66
[2020-05-20 12:05] VITALS: BP 204/77
[2020-05-20 12:30] VITALS: BP 190/67
[2020-05-20] MEDS: LORazepam 2MG/ML-1ML VIAL IV PRN (14:17)
[2020-05-20] MEDS: ENOXAPARIN SOD 80 MG/0.8ML SYRINGE SC SCH (16:22)
[2020-05-20 17:14] LABS: Hematocrit 28.2 % (41.0-53.0); Hemoglobin 9.7 g/dL (13.5-17.5)
[2020-05-20 17:38] LABS: BUN/Creatinine Ratio 7.4; Calcium 8.3 mg/dL (8.5-10.1); Potassium 4.4 mmol/L (3.5-5.1)
[2020-05-20] MEDS: ALBUTEROL SULF HFA 90MCG INH 200DOSE IN PRN (19:41)
[2020-05-20] MEDS ORDERED: EPOETIN ALFA 10,000 UNIT/1 ML VIAL SC ONE (21:00)
[2020-05-20] MEDS: ATORVASTATIN 20 MG TAB PO SCH (21:59)
[2020-05-21 06:19] LABS: Basophils # (auto) 0 10 ^3/uL (0-0.2); Basophils % (auto) 0.1 % (0.0-2.0); Eosinophils # (auto) 0 10 ^3/uL (0-0.8); Hematocrit 26.3 % (41.0-53.0); Hemoglobin 9.3 g/dL (13.5-17.5); Lymphocytes # (auto) 0.3 10 ^3/uL (0.4-5.4); Lymphocytes % (auto) 4.6 % (10.0-50.0); Mean Corpuscular Hemoglobin 31.4 pg (28.0-32.0); Mean Corpuscular Hgb Conc. 35.3 g/dL (32.0-36.0); Mean Corpuscular Volume 88.9 fL (80.0-100.0); Monocytes # (auto) 0.5 10 ^3/uL (0-1.3); Monocytes % (auto) 8.6 % (0.0-12.0); Neutrophils # (auto) 5.2 10 ^3/uL (1.6-8.6); Neutrophils % (auto) 86.7 % (37.0-80.0); Nucleated Red Blood Cells % 0.3 %; Platelet Count (auto) 223 10^3/uL (140-450); Red Blood Cells 2.96 10^6/uL (4.5-5.90); Red Cell Distribution Width 16.7 % (11.8-14.3)
[2020-05-21 06:45] LABS: Potassium 4.1 mmol/L (3.5-5.1)
[2020-05-21 07:27] LABS: BUN/Creatinine Ratio 7.9
[2020-05-21] MEDS: BUDESONIDE (INHALATION) 180 MCG IH IN SCH ×2 (07:30→18:30)
[2020-05-21 07:33] LABS: Calcium 8.2 mg/dL (8.5-10.1); Magnesium 2.6 mg/dL (1.6-2.6)
[2020-05-21] MEDS: AZITHROMYCIN 500MG/ 250ML 250 ML IV SCH (10:00)
[2020-05-21] MEDS: NITROGLYCERIN 0.4MG/HR TOPICAL PATCH TD SCH (10:45)
[2020-05-21] MEDS: CHOLECALCIFEROL (VITD3) 2,000 UNIT CAP PO SCH (10:45)
[2020-05-21] MEDS: METOPROLOL TARTRATE 25 MG TAB PO SCH ×2 (10:46→21:26)
[2020-05-21] MEDS: ASCORBIC ACID 1,000 MG TAB PO SCH (10:46)
[2020-05-21] MEDS: CLOPIDOGREL BISULFATE 75 MG TAB PO SCH (10:46)
[2020-05-21] MEDS: ZINC SULFATE 220mg CAP or TAB PO SCH (10:46)
[2020-05-21] MEDS: ASPirin-EC 81 mg tab PO SCH (10:46)
[2020-05-21] MEDS: DexAMETHasone SOD PHOS 10MG/1ML VIAL INJ IV SCH (11:04)
[2020-05-21] MEDS: cefTRIAXone 1GM/50ML D5W 50 ML IV SCH (11:21)
[2020-05-21] MEDS: ENOXAPARIN SOD 80 MG/0.8ML SYRINGE SC SCH (17:39)
[2020-05-21] MEDS: ALBUTEROL SULF HFA 90MCG INH 200DOSE IN PRN (20:26)
[2020-05-21] MEDS: ATORVASTATIN 20 MG TAB PO SCH (21:26)
[2020-05-22 05:59] LABS: Basophils # (auto) 0 10 ^3/uL (0-0.2); Eosinophils # (auto) 0 10 ^3/uL (0-0.8); Hematocrit 26.6 % (41.0-53.0); Hemoglobin 9.2 g/dL (13.5-17.5); Lymphocytes # (auto) 0.2 10 ^3/uL (0.4-5.4); Lymphocytes % (auto) 3.6 % (10.0-50.0); Mean Corpuscular Hemoglobin 30.8 pg (28.0-32.0); Mean Corpuscular Hgb Conc. 34.4 g/dL (32.0-36.0); Mean Corpuscular Volume 89.4 fL (80.0-100.0); Monocytes # (auto) 0.6 10 ^3/uL (0-1.3); Monocytes % (auto) 10.6 % (0.0-12.0); Neutrophils # (auto) 4.6 10 ^3/uL (1.6-8.6); Neutrophils % (auto) 85.8 % (37.0-80.0); Nucleated Red Blood Cells % 0.4 %; Platelet Count (auto) 223 10^3/uL (140-450); Red Blood Cells 2.98 10^6/uL (4.5-5.90); Red Cell Distribution Width 17.7 % (11.8-14.3); White Blood Cell 5.4 10^3/uL (4.4-10.8)
[2020-05-22] MEDS ORDERED: SODIUM CHL 0.9% 1000 ML BAG XX ONE (07:00)
[2020-05-22] MEDS: BUDESONIDE (INHALATION) 180 MCG IH IN SCH ×2 (07:03→22:02)
[2020-05-22] MEDS: ALBUTEROL SULF HFA 90MCG INH 200DOSE IN PRN ×3 (08:08→22:03)
[2020-05-22] MEDS: cefTRIAXone 1GM/50ML D5W 50 ML IV SCH (09:00)
[2020-05-22] MEDS: NITROGLYCERIN 0.4MG/HR TOPICAL PATCH TD SCH (10:00)
[2020-05-22] MEDS: CHOLECALCIFEROL (VITD3) 2,000 UNIT CAP PO SCH (10:00)
[2020-05-22] MEDS: DexAMETHasone SOD PHOS 10MG/1ML VIAL INJ IV SCH (10:00)
[2020-05-22] MEDS: METOPROLOL TARTRATE 25 MG TAB PO SCH ×2 (10:00→22:18)
[2020-05-22] MEDS: AZITHROMYCIN 500MG/ 250ML 250 ML IV SCH (10:00)
[2020-05-22] MEDS: FAMOTIDINE 20 MG TAB PO SCH (10:00)
[2020-05-22] MEDS: ASCORBIC ACID 1,000 MG TAB PO SCH (10:00)
[2020-05-22] MEDS: ZINC SULFATE 220mg CAP or TAB PO SCH (10:00)
[2020-05-22] MEDS: ASPirin-EC 81 mg tab PO SCH (10:00)
[2020-05-22] MEDS: CLOPIDOGREL BISULFATE 75 MG TAB PO SCH (10:00)
[2020-05-22] MEDS: ENOXAPARIN SOD 80 MG/0.8ML SYRINGE SC SCH (17:00)
[2020-05-22] MEDS: hydrALAZINE HCL 20 MG/ML VL IV PRN (19:17)
[2020-05-22] MEDS ORDERED: EPOETIN ALFA 10,000 UNIT/1 ML VIAL SC ONE (21:00)
[2020-05-22] MEDS: ATORVASTATIN 20 MG TAB PO SCH (22:18)
[2020-05-23] MEDS: hydrALAZINE HCL 20 MG/ML VL IV PRN ×2 (02:36→06:43)
[2020-05-23] MEDS: HALOPERIDOL LACTATE 5 MG/ML INJ VIAL IM PRN ×2 (03:47→15:16)
[2020-05-23] MEDS: BUDESONIDE (INHALATION) 180 MCG IH IN SCH ×2 (10:00→18:58)
[2020-05-23] MEDS: ZINC SULFATE 220mg CAP or TAB PO SCH (12:00)
[2020-05-23] MEDS: NITROGLYCERIN 0.4MG/HR TOPICAL PATCH TD SCH (12:00)
[2020-05-23] MEDS: AZITHROMYCIN 500MG/ 250ML 250 ML IV SCH (12:00)
[2020-05-23] MEDS: cefTRIAXone 1GM/50ML D5W 50 ML IV SCH (12:00)
[2020-05-23] MEDS: CHOLECALCIFEROL (VITD3) 2,000 UNIT CAP PO SCH (12:00)
[2020-05-23] MEDS: ASPirin-EC 81 mg tab PO SCH (12:00)
[2020-05-23] MEDS: METOPROLOL TARTRATE 25 MG TAB PO SCH ×2 (12:00→23:17)
[2020-05-23] MEDS: CLOPIDOGREL BISULFATE 75 MG TAB PO SCH (12:00)
[2020-05-23] MEDS: ASCORBIC ACID 1,000 MG TAB PO SCH (12:00)
[2020-05-23] MEDS: ENOXAPARIN SOD 80 MG/0.8ML SYRINGE SC SCH (18:23)
[2020-05-23] MEDS: ALBUTEROL SULF HFA 90MCG INH 200DOSE IN PRN (20:15)
[2020-05-23] MEDS: ATORVASTATIN 20 MG TAB PO SCH (23:17)
[2020-05-24] MEDS: LORazepam 2MG/ML-1ML VIAL IV PRN ×4 (02:06→22:24)
[2020-05-24] MEDS: hydrALAZINE HCL 20 MG/ML VL IV PRN ×2 (05:15→22:24)
[2020-05-24] MEDS ORDERED: SODIUM CHL 0.9% 1000 ML BAG XX ONE (07:00)
[2020-05-24] MEDS: ALBUTEROL SULF HFA 90MCG INH 200DOSE IN PRN ×2 (07:01→19:39)
[2020-05-24] MEDS: BUDESONIDE (INHALATION) 180 MCG IH IN SCH ×2 (07:01→22:16)
[2020-05-24 07:35] LABS: BUN/Creatinine Ratio 7.1; Calcium 8.1 mg/dL (8.5-10.1); Potassium 3.9 mmol/L (3.5-5.1)
[2020-05-24] MEDS: cefTRIAXone 1GM/50ML D5W 50 ML IV SCH (08:04)
[2020-05-24] MEDS: ZINC SULFATE 220mg CAP or TAB PO SCH (09:41)
[2020-05-24] MEDS: METOPROLOL TARTRATE 25 MG TAB PO SCH ×2 (09:42→21:28)
[2020-05-24] MEDS: CLOPIDOGREL BISULFATE 75 MG TAB PO SCH (09:42)
[2020-05-24] MEDS: CHOLECALCIFEROL (VITD3) 2,000 UNIT CAP PO SCH (09:42)
[2020-05-24] MEDS: ASCORBIC ACID 1,000 MG TAB PO SCH (09:42)
[2020-05-24] MEDS: ASPirin-EC 81 mg tab PO SCH (09:42)
[2020-05-24] MEDS: FAMOTIDINE 20 MG TAB PO SCH (09:42)
[2020-05-24] MEDS: NITROGLYCERIN 0.4MG/HR TOPICAL PATCH TD SCH (09:54)
[2020-05-24] MEDS: AZITHROMYCIN 500MG/ 250ML 250 ML IV SCH (12:00)
[2020-05-24] MEDS: ENOXAPARIN SOD 80 MG/0.8ML SYRINGE SC SCH (20:51)
[2020-05-24] MEDS ORDERED: EPOETIN ALFA 10,000 UNIT/1 ML VIAL SC ONE (21:00)
[2020-05-24] MEDS: ATORVASTATIN 20 MG TAB PO SCH (21:28)
[2020-05-25 06:01] LABS: Hematocrit 29.3 % (41.0-53.0); Hemoglobin 9.8 g/dL (13.5-17.5)
[2020-05-25 06:21] LABS: % Iron Saturation 16.7 % (20-55)
[2020-05-25] MEDS ORDERED: SODIUM CHL 0.9% 1000 ML BAG XX ONE (07:00)
[2020-05-25] MEDS: cefTRIAXone 1GM/50ML D5W 50 ML IV SCH (09:00)
[2020-05-25] MEDS: BUDESONIDE (INHALATION) 180 MCG IH IN SCH ×2 (10:00→22:00)
[2020-05-25] MEDS: ZINC SULFATE 220mg CAP or TAB PO SCH (10:00)
[2020-05-25] MEDS: CLOPIDOGREL BISULFATE 75 MG TAB PO SCH (10:00)
[2020-05-25] MEDS: CHOLECALCIFEROL (VITD3) 2,000 UNIT CAP PO SCH (10:00)
[2020-05-25] MEDS: ASPirin-EC 81 mg tab PO SCH (10:00)
[2020-05-25] MEDS: ASCORBIC ACID 1,000 MG TAB PO SCH (10:00)
[2020-05-25] MEDS ORDERED: LORazepam 2MG/ML-1ML VIAL IV PRN (12:45)
[2020-05-25] MEDS: NITROGLYCERIN 0.4MG/HR TOPICAL PATCH TD SCH (14:09)
[2020-05-25] MEDS: AZITHROMYCIN 500MG/ 250ML 250 ML IV SCH (14:14)
[2020-05-25] MEDS: METOPROLOL TARTRATE 25 MG TAB PO SCH ×2 (14:16→21:40)
[2020-05-25] MEDS: ENOXAPARIN SOD 80 MG/0.8ML SYRINGE SC SCH (18:37)
[2020-05-25] MEDS ORDERED: EPOETIN ALFA 10,000 UNIT/1 ML VIAL SC ONE (21:00)
[2020-05-25] MEDS: ATORVASTATIN 20 MG TAB PO SCH (21:40)
[2020-05-26] MEDS: BUDESONIDE (INHALATION) 180 MCG IH IN SCH ×2 (09:47→20:15)
[2020-05-26] MEDS: ALBUTEROL SULF HFA 90MCG INH 200DOSE IN PRN (09:47)
[2020-05-26] MEDS: cefTRIAXone 1GM/50ML D5W 50 ML IV SCH (10:05)
[2020-05-26] MEDS: ASPirin-EC 81 mg tab PO SCH (10:05)
[2020-05-26] MEDS: ZINC SULFATE 220mg CAP or TAB PO SCH (10:05)
[2020-05-26] MEDS: ASCORBIC ACID 1,000 MG TAB PO SCH (10:06)
[2020-05-26] MEDS: METOPROLOL TARTRATE 25 MG TAB PO SCH ×2 (10:06→23:30)
[2020-05-26] MEDS: CLOPIDOGREL BISULFATE 75 MG TAB PO SCH (10:06)
[2020-05-26] MEDS: CHOLECALCIFEROL (VITD3) 2,000 UNIT CAP PO SCH (10:07)
[2020-05-26] MEDS: FAMOTIDINE 20 MG TAB PO SCH (10:07)
[2020-05-26] MEDS: NITROGLYCERIN 0.4MG/HR TOPICAL PATCH TD SCH (10:15)
[2020-05-26] MEDS: AZITHROMYCIN 500MG/ 250ML 250 ML IV SCH (12:38)
[2020-05-26] MEDS: ENOXAPARIN SOD 80 MG/0.8ML SYRINGE SC SCH (18:09)
[2020-05-26] MEDS ORDERED: amLODIPine BESYLATE 5 MG TAB PO ONE (18:30)
[2020-05-26 18:45] VITALS: BP 168/62
[2020-05-26 21:00] VITALS: BP 168/62
[2020-05-26] MEDS: ATORVASTATIN 20 MG TAB PO SCH (23:29)
[2020-05-27] VITALS: BP_SYST 128; BP_SYST 150; BP_DIAS 62; BP_DIAS 72
[2020-05-27 06:14] LABS: Basophils # (auto) 0 10 ^3/uL (0-0.2); Basophils % (auto) 0.7 % (0.0-2.0); Eosinophils # (auto) 0 10 ^3/uL (0-0.8); Eosinophils % (auto) 0.4 % (0.0-7.0); Hematocrit 26.5 % (41.0-53.0); Hemoglobin 9.1 g/dL (13.5-17.5); Lymphocytes # (auto) 0.6 10 ^3/uL (0.4-5.4); Lymphocytes % (auto) 11.9 % (10.0-50.0); Mean Corpuscular Hemoglobin 31.1 pg (28.0-32.0); Mean Corpuscular Hgb Conc. 34.1 g/dL (32.0-36.0); Mean Corpuscular Volume 91.2 fL (80.0-100.0); Monocytes # (auto) 0.8 10 ^3/uL (0-1.3); Monocytes % (auto) 15.8 % (0.0-12.0); Neutrophils # (auto) 3.7 10 ^3/uL (1.6-8.6); Neutrophils % (auto) 71.2 % (37.0-80.0); Nucleated Red Blood Cells % 0.1 %; Platelet Count (auto) 200 10^3/uL (140-450); Red Blood Cells 2.91 10^6/uL (4.5-5.90); Red Cell Distribution Width 17.7 % (11.8-14.3); White Blood Cell 5.1 10^3/uL (4.4-10.8)
[2020-05-27] MEDS: BUDESONIDE (INHALATION) 180 MCG IH IN SCH ×2 (06:35→22:00)
[2020-05-27 06:55] LABS: BUN/Creatinine Ratio 5.2; Calcium 8.2 mg/dL (8.5-10.1); Magnesium 2.4 mg/dL (1.6-2.6)
[2020-05-27 08:00] VITALS: BP 164/73
[2020-05-27] MEDS: ALBUTEROL SULF HFA 90MCG INH 200DOSE IN PRN (08:56)
[2020-05-27] MEDS: ASPirin-EC 81 mg tab PO SCH (09:34)
[2020-05-27] MEDS: ZINC SULFATE 220mg CAP or TAB PO SCH (09:34)
[2020-05-27] MEDS: AZITHROMYCIN 500MG/ 250ML 250 ML IV SCH (09:34)
[2020-05-27] MEDS: cefTRIAXone 1GM/50ML D5W 50 ML IV SCH (09:34)
[2020-05-27] MEDS: METOPROLOL TARTRATE 25 MG TAB PO SCH ×2 (09:35→23:26)
[2020-05-27] MEDS: ASCORBIC ACID 1,000 MG TAB PO SCH (09:35)
[2020-05-27] MEDS: amLODIPine BESYLATE 5 MG TAB PO SCH (09:35)
[2020-05-27] MEDS: CLOPIDOGREL BISULFATE 75 MG TAB PO SCH (09:35)
[2020-05-27] MEDS: ENOXAPARIN SOD 80 MG/0.8ML SYRINGE SC SCH (09:36)
[2020-05-27] MEDS: NITROGLYCERIN 0.4MG/HR TOPICAL PATCH TD SCH (09:36)
[2020-05-27] MEDS: CHOLECALCIFEROL (VITD3) 2,000 UNIT CAP PO SCH (10:00)
[2020-05-27 16:00] VITALS: BP 147/67
[2020-05-27] MEDS: ATORVASTATIN 20 MG TAB PO SCH (23:24)
[2020-05-28] VITALS: BP 150/72
[2020-05-28] MEDS: ALBUTEROL SULF HFA 90MCG INH 200DOSE IN PRN ×2 (00:28→11:55)
[2020-05-28] MEDS ORDERED: SODIUM CHL 0.9% 1000 ML BAG XX ONE (07:00)
[2020-05-28 08:20] VITALS: BP 156/66
[2020-05-28] MEDS: cefTRIAXone 1GM/50ML D5W 50 ML IV SCH (09:30)
[2020-05-28] MEDS: NITROGLYCERIN 0.4MG/HR TOPICAL PATCH TD SCH (10:00)
[2020-05-28 11:31] VITALS: BP 137/62
[2020-05-28 11:45] VITALS: BP 137/62
[2020-05-28] MEDS: BUDESONIDE (INHALATION) 180 MCG IH IN SCH (11:55)
[2020-05-28] MEDS ORDERED: SODIUM FERR GLUC 125 MG in NS 100 ML IV SCH (12:00)
[2020-05-28] MEDS ORDERED: IRON SUCROSE COMPLEX 200 MG in SODIUM CHL 0.9% 100 ML IV SCH (12:00)
[2020-05-28] MEDS: ASPirin-EC 81 mg tab PO SCH (13:00)
[2020-05-28] MEDS: AZITHROMYCIN 500MG/ 250ML 250 ML IV SCH (13:00)
[2020-05-28] MEDS: ZINC SULFATE 220mg CAP or TAB PO SCH (13:00)
[2020-05-28] MEDS: CLOPIDOGREL BISULFATE 75 MG TAB PO SCH (13:00)
[2020-05-28] MEDS: FAMOTIDINE 20 MG TAB PO SCH (13:00)
[2020-05-28] MEDS: CHOLECALCIFEROL (VITD3) 2,000 UNIT CAP PO SCH (13:00)
[2020-05-28] MEDS: ASCORBIC ACID 1,000 MG TAB PO SCH (13:00)
[2020-05-28 16:00] VITALS: BP 156/66
[2020-05-28] MEDS: ENOXAPARIN SOD 80 MG/0.8ML SYRINGE SC SCH (17:00)
[2020-05-28] MEDS: amLODIPine BESYLATE 5 MG TAB PO SCH (18:00)
[2020-05-28] MEDS: METOPROLOL TARTRATE 25 MG TAB PO SCH (18:14)
[2020-05-28] MEDS ORDERED: EPOETIN ALFA 10,000 UNIT/1 ML VIAL SC ONE (21:00)
== END 2020-05-28 19:30 | DRG 177 ==
LOC: ER 12:20 → EDBD 12:20 → OVERFLOW 12:21 → TELE-WESTW 05-26 19:03
PROVIDERS: ADMIT Nurse Practitioner Acute Care; ATTEND Internal Medicine Geriatric Medicine
PROC: 30233N1 Transfusion of Nonautologous Red Blood Cells into Peripheral Vein, Percutaneous Approach (ICD-10-PCS; 2020-05-14)
PROC: 5A1D70Z Performance of Urinary Filtration, Intermittent, Less than 6 Hours Per Day (ICD-10-PCS; principal; 2020-05-15)
PROC: 5A1D70Z Performance of Urinary Filtration, Intermittent, Less than 6 Hours Per Day (ICD-10-PCS; 2020-05-16)
PROC: 5A1D70Z Performance of Urinary Filtration, Intermittent, Less than 6 Hours Per Day (ICD-10-PCS; 2020-05-20)
PROC: 5A1D70Z Performance of Urinary Filtration, Intermittent, Less than 6 Hours Per Day (ICD-10-PCS; 2020-05-22)
PROC: 5A1D70Z Performance of Urinary Filtration, Intermittent, Less than 6 Hours Per Day (ICD-10-PCS; 2020-05-25)
DX: U07.1 COVID-19 (principal); I21.4 Non-ST elevation (NSTEMI) myocardial infarction; I50.21 Acute systolic (congestive) heart failure; J96.01 Acute respiratory failure with hypoxia; N18.6 End stage renal disease; J12.82 Pneumonia due to coronavirus disease 2019; J98.11 Atelectasis; I13.2 Hypertensive heart and chronic kidney disease with heart failure and with stage 5 chronic kidney disease, or end stage renal disease; J44.0 Chronic obstructive pulmonary disease with (acute) lower respiratory infection; D72.819 Decreased white blood cell count, unspecified; E11.22 Type 2 diabetes mellitus with diabetic chronic kidney disease; E78.5 Hyperlipidemia, unspecified; D63.1 Anemia in chronic kidney disease; F41.9 Anxiety disorder, unspecified; I25.10 Atherosclerotic heart disease of native coronary artery without angina pectoris; R53.81 Other malaise; Z78.1 Physical restraint status; Z99.2 Dependence on renal dialysis; Z79.4 Long term (current) use of insulin; Z79.82 Long term (current) use of aspirin; Z79.899 Other long term (current) drug therapy; Z82.3 Family history of stroke; Z82.49 Family history of ischemic heart disease and other diseases of the circulatory system; Z83.3 Family history of diabetes mellitus; Z87.891 Personal history of nicotine dependence; Z95.5 Presence of coronary angioplasty implant and graft
CPT/HCPCS: 36415; 36600; 71045; 80048; 80053; 82728; 82805; 82962; 83540; 83550; 83605; 83615; 83735; 83880; 84100; 84484; 85014; 85018; 85025; 85379; 85610; 86141; 86850; 86900; 86901; 86920; 87040; 87426; 90935; 93005; 93306; 94640; 96372; 96374; 97163; G0378; J0696; J0885; J1100; J1756; J2405

== ENCOUNTER 2023-09-14 12:12 | Inpatient (IN) | payer OTHER, MEDICAID ==
[2023-09-14] VITALS (10 sets, daily range): BP systolic 48–140; BP diastolic 13–83; PULSE 29–100; RESP 19–25; TEMP 99; O2SAT 96–100
[~2023-09-14] VITALS: Ht 167.6 cm; Wt 73.6 kg
[~2023-09-14 12:12] MED LIST changes: -BUPR-40 PO; +BUPR150T8 PO; -LISI-648 PO; +LISI10TA34 PO
[2023-09-14] MEDS: ATROPINE SULF 1 MG/10ml SYR ONE (12:18)
[2023-09-14] MEDS: ATROPINE SULF 1 MG/10ml SYR IV ONE ×2 (12:18→12:20)
[2023-09-14] MEDS: DOPamine 1600MCG/ML D5W 250 ML IV ONE ×2 (12:23→18:16)
[2023-09-14] MEDS ORDERED: CALCIUM CHLOR(10%) 100MG/ML 10ML SYRINGE IV PRN ×2 (12:28→12:45)
[2023-09-14] MEDS: ROCURONIUM 10MG/ML 10ML VIAL IV ONE ×2 (12:34→12:48)
[2023-09-14] MEDS: ETOMIDATE (2MG/ML) 20ML VIAL IV ONE ×2 (12:34→12:48)
[2023-09-14] MEDS: EPINEPHrine HCL 250 ML IV ONE ×2 (12:48→12:53)
[2023-09-14] MEDS: PHENYLEPHRINE IV 250 ML IV ONE ×4 (12:48→20:47)
[2023-09-14] MEDS: InsuLIN REG 1unit/0.01ml Soln (100units/ml) ONE (12:58)
[2023-09-14] MEDS: DEXTROSE 50% SYRINGE 50 ML IV ONE (12:59)
[2023-09-14] MEDS: InsuLIN REG 1unit/0.01ml Soln (100units/ml) IV ONE (13:02)
[2023-09-14] MEDS: DEXTROSE (50%) 50ML SYRG IV ONE (13:02)
[2023-09-14 13:17] LABS: Hematocrit 30.7 % (41.0-53.0); Hemoglobin 9.4 g/dL (13.5-17.5); Mean Corpuscular Volume 98.8 fL (80.0-100.0); Red Blood Cells 3.11 10^6/uL (4.5-5.90)
[2023-09-14 13:18] LABS: Mean Corpuscular Hemoglobin 30.2 pg (28.0-32.0); Mean Corpuscular Hgb Conc. 30.6 g/dL (32.0-36.0); Red Cell Distribution Width 18.1 % (11.8-14.3); White Blood Cell 8.2 10^3/uL (4.4-10.8)
[2023-09-14 13:31] LABS: Basophils % (manual) 0 (0.0-2.0); Promyelocytes % 0
[2023-09-14 13:44] LABS: Alanine Aminotransferase 29 U/L (7-40); Albumin 3.8 g/dL (3.2-4.8); Alkaline Phosphatase 79 U/L (46-116); Anion Gap 20 (5-15); Aspartate Aminotransferase 57 U/L (13-40); BUN/Creatinine Ratio 6.6 (10.0-20.0); Blood Urea Nitrogen 54 mg/dL (9-23); Calcium 10.9 mg/dL (8.7-10.4); Carbon Dioxide 13 mmol/L (20-30); Chloride 100 mmol/L (98-107); Glucose 226 mg/dL (74-106); Magnesium 3.2 mg/dL (1.6-2.6); Potassium 5.5 mmol/L (3.5-5.1); Sodium 133 mmol/L (136-145)
[2023-09-14 13:45] LABS: Base Excess -13.3 mmol/L (-2.0-2.0)
[2023-09-14 13:45] LABS: Bilirubin, Total < 0.2 mg/dL (0.2-1.0); Total Protein 6.7 g/dL (5.7-8.2)
[2023-09-14] MEDS: MIDAZOLAM DRIP 50 mg/50mL 50 ML IV ONE (13:50)
[2023-09-14] MEDS: MIDAZOLAM DRIP 50 mg/50mL 50 ML IV SCH (13:50)
[2023-09-14 14:41] LABS: Band Neutrophils % (manual) 3; Blast Cells 2; Eosinophils % (manual) 6 (0-7); Lymphocytes % (manual) 39 (10.0-50.0); Metamyelocytes % 1; Monocytes % (manual) 2 (0-12); Myelocytes % 1; Platelet Estimate Adequate; Reactive Lymphocytes 1
[2023-09-14] MEDS: PROPOFOL 100 ML IV ONE (18:15)
[2023-09-14] MEDS: PROPOFOL 100 ML IV SCH (19:48)
[2023-09-14] MEDS: PHENYLEPHRINE IV 250 ML IV SCH (21:45)
[2023-09-14] MEDS: ISOPROTERENOL HCL INJECTION 1 MG in D5W 5% 250 ML IV SCH (22:40)
[2023-09-14] MEDS: SODIUM CHL 0.9% 1000 ML BAG XX ONE (22:57)
[2023-09-14] MEDS ORDERED: ONDANSETRON HCL 4 MG/2 ML VIAL IV PRN (23:15)
[2023-09-14] MEDS ORDERED: NITROGLYCERIN 0.4 MG SL TAB SL PRN (23:15)
[2023-09-14] MEDS ORDERED: MORPHINE SULFATE INJ 2 MG/ml SYRG IV PRN (23:15)
[2023-09-15] VITALS (39 sets, daily range): BP systolic 76–211; BP diastolic 49–118; PULSE 70–119; RESP 19–25; TEMP 98.2–100.6; O2SAT 96–100
[2023-09-15 01:01] LABS: Chloride 94 mmol/L (98-107)
[2023-09-15 01:02] LABS: Anion Gap 18 (5-15); Carbon Dioxide 14 mmol/L (20-30)
[2023-09-15 01:03] LABS: Calcium 9.9 mg/dL (8.7-10.4)
[2023-09-15 01:07] LABS: BUN/Creatinine Ratio 7.5 (10.0-20.0); Glucose 295 mg/dL (74-106)
[2023-09-15 01:13] LABS: Lactic Acid w/Reflex 5.7 mmol/L (0.4-2.0)
[2023-09-15 01:15] LABS: Blood Urea Nitrogen 70 mg/dL (9-23); Potassium 7.1 mmol/L (3.5-5.1); Sodium 126 mmol/L (136-145)
[2023-09-15] MEDS: ALBUTEROL SULF 2.5 MG/0.5ML(0.5%) NEB SOLN NEB ONE ×2 (01:34→07:00)
[2023-09-15] MEDS: ACCU-CHEK COMFORT CURVE STRIP VI SCH (01:35)
[2023-09-15] MEDS: InsuLIN REG 1unit/0.01ml Soln (100units/ml) SC SCH (02:04)
[2023-09-15] MEDS: SODIUM BICARB 8.4% 50Meq/50ml SYR Vial IV ONE ×3 (02:05→11:53)
[2023-09-15] MEDS: InsuLIN REG 1unit/0.01ml Soln (100units/ml) IV ONE ×3 (02:05→21:39)
[2023-09-15] MEDS: SODIUM BICARB 8.4% 50Meq/50ml SYR INJ ONE (02:05)
[2023-09-15] MEDS: DEXTROSE (50%) 50ML SYRG IV ONE ×3 (02:14→21:07)
[2023-09-15] MEDS: SODIUM CHLORIDE 0.9% 500 ML IV ONE (02:25)
[2023-09-15] MEDS: CALCIUM GLUC 1,000mg/50ml-NS 50 ML IV ONE ×2 (02:32→06:45)
[2023-09-15] MEDS: FUROSEMIDE 40 MG/4 ML VIAL IV ONE (02:58)
[2023-09-15] MEDS: SODIUM BICARB 50mEq/50ml Vial 100 ML in SOD CHL 0.45% 1,000 ML IV ONE (02:59)
[2023-09-15] MEDS: DOPamine 1600MCG/ML D5W 250 ML IV ONE ×2 (04:18→10:20)
[2023-09-15 04:19] LABS: Base Excess -13.4 mmol/L (-2.0-2.0)
[2023-09-15 05:16] LABS: Basophils # (auto) 0 10 ^3/uL (0-0.2); Basophils % (auto) 0.1 % (0.0-2.0); Eosinophils # (auto) 0 10 ^3/uL (0-0.8); Eosinophils % (auto) 0.1 % (0.0-7.0); Hematocrit 29.6 % (41.0-53.0); Hemoglobin 9.4 g/dL (13.5-17.5); Lymphocytes # (auto) 0.4 10 ^3/uL (0.4-5.4); Lymphocytes % (auto) 3.7 % (10.0-50.0); Mean Corpuscular Hemoglobin 29.7 pg (28.0-32.0); Mean Corpuscular Hgb Conc. 31.9 g/dL (32.0-36.0); Mean Corpuscular Volume 93.3 fL (80.0-100.0); Monocytes # (auto) 1.8 10 ^3/uL (0-1.3); Monocytes % (auto) 15.6 % (0.0-12.0); Neutrophils # (auto) 9.3 10 ^3/uL (1.6-8.6); Neutrophils % (auto) 80.5 % (37.0-80.0); Red Blood Cells 3.18 10^6/uL (4.5-5.90); Red Cell Distribution Width 17.7 % (11.8-14.3); White Blood Cell 11.6 10^3/uL (4.4-10.8)
[2023-09-15 05:27] LABS: INR 1.16 (0.9-1.15); Partial Thromboplastin Time 28.5 SEC (24.5-34.5); Prothrombin Time 12.1 sec (9.3-11.8)
[2023-09-15 05:29] LABS: Alanine Aminotransferase 38 U/L (7-40); Albumin 3.7 g/dL (3.2-4.8); Alkaline Phosphatase 73 U/L (46-116); Anion Gap 19 (5-15); Aspartate Aminotransferase 125 U/L (13-40); BUN/Creatinine Ratio 7.5 (10.0-20.0); Bilirubin, Total < 0.2 mg/dL (0.2-1.0); Blood Urea Nitrogen 69 mg/dL (9-23); Calcium 9.4 mg/dL (8.7-10.4); Carbon Dioxide 14 mmol/L (20-30); Chloride 92 mmol/L (98-107); Sodium 125 mmol/L (136-145); Total Protein 6.6 g/dL (5.7-8.2)
[2023-09-15 05:34] LABS: Glucose 398 mg/dL (74-106)
[2023-09-15 05:35] LABS: Potassium 6.6 mmol/L (3.5-5.1)
[2023-09-15 06:36] LABS: Lactic Acid w/Reflex 5.6 mmol/L (0.4-2.0)
[2023-09-15] MEDS: cefTRIAXone 1GM/50ML D5W 50 ML IV SCH (06:45)
[2023-09-15] MEDS: SODIUM BICARB 50mEq/50ml Vial 150 ML in D5W 5% 1,000 ML IV SCH (07:15)
[2023-09-15] MEDS: SODIUM ZIRCONIUM CYCL 10 GM PAK PO ONE ×2 (07:15→11:54)
[2023-09-15] MEDS: PANTOPRAZOLE 40 MG/10 ML VIAL INJ IV SCH (09:00)
[2023-09-15] MEDS: HEPARIN DRIP/D5W 100UNITS/ML 250 ML IV SCH (09:51)
[2023-09-15 10:26] LABS: Triglycerides 100 mg/dL (< 150)
[2023-09-15 10:27] LABS: LDL Cholesterol 45 mg/dL (< 100)
[2023-09-15 10:28] LABS: Cholesterol 94 mg/dL (< 200); HDL Cholesterol 28 mg/dL (40-59)
[2023-09-15 12:32] LABS: Anion Gap 12 (5-15); Carbon Dioxide 28 mmol/L (20-30); Chloride 94 mmol/L (98-107)
[2023-09-15 12:34] LABS: Calcium 8.9 mg/dL (8.5-10.1)
[2023-09-15 12:39] LABS: BUN/Creatinine Ratio 6.7 (10.0-20.0)
[2023-09-15 12:41] LABS: Blood Urea Nitrogen 40 mg/dL (9-23); Glucose 183 mg/dL (74-106); Sodium 134 mmol/L (136-145)
[2023-09-15 12:47] LABS: Lactic Acid w/Reflex 4.4 mmol/L (0.4-2.0)
[2023-09-15] MEDS: VASOPRESSIN 20 UNITS in SODIUM CHL 0.9% 99 ML IV SCH (14:04)
[2023-09-15] MEDS: LIDOCAINE 2%HCL (LOCAL ANESTH.) INJ 20ML MDV ONE (15:44)
[2023-09-15] MEDS ORDERED: DULO1CAP5 PO (16:46)
[2023-09-15] MEDS ORDERED: ATOR80TA PO ×2 (16:46)
[2023-09-15] MEDS ORDERED: BUPR150T23 PO ×2 (16:48)
[2023-09-15] MEDS ORDERED: HYDR50CA2 PO ×2 (17:00)
[2023-09-15] MEDS ORDERED: CLON0.2D6 TOP (17:00)
[2023-09-15] MEDS ORDERED: HYDR-4902 PO (17:00)
[2023-09-15] MEDS ORDERED: RISP0.5T45 PO ×2 (17:00)
[2023-09-15] MEDS ORDERED: NALO4SPR3 EACHNOSTRI ×2 (17:00)
[2023-09-15] MEDS ORDERED: NIFE1TAB31 PO (17:00)
[2023-09-15] MEDS ORDERED: BENZ100C97 PO (17:00)
[2023-09-15] MEDS ORDERED: TICA90TA PO (17:00)
[2023-09-15] MEDS ORDERED: ALBU108A5 INH ×2 (17:00)
[2023-09-15] MEDS ORDERED: NITR0.4S29 SL (17:00)
[2023-09-15] MEDS ORDERED: OMEP20TA PO (17:09)
[2023-09-15] MEDS ORDERED: MIN25T PO (17:09)
[2023-09-15] MEDS ORDERED: HYDR50TA47 PO (17:09)
[2023-09-15] MEDS ORDERED: ASPI81CH59 PO (17:09)
[2023-09-15] MEDS: ACETAMINOPHEN 650 MG RECT SUPP PR PRN (18:37)
[2023-09-15] MEDS: NOREPINEPHRINE 8 MG/250ML KIT 250 ML IV SCH (18:47)
[2023-09-15 20:04] LABS: Chloride 94 mmol/L (98-107); Sodium 134 mmol/L (136-145)
[2023-09-15 20:05] LABS: Anion Gap 12 (5-15); Calcium 8.1 mg/dL (8.5-10.1); Carbon Dioxide 28 mmol/L (20-30)
[2023-09-15 20:10] LABS: BUN/Creatinine Ratio 8.2 (10.0-20.0); Glucose 91 mg/dL (74-106)
[2023-09-15 20:25] LABS: Blood Urea Nitrogen 52 mg/dL (9-23)
[2023-09-15 20:27] LABS: Lactic Acid w/Reflex 3.1 mmol/L (0.4-2.0); Potassium 5.8 mmol/L (3.5-5.1)
[2023-09-15] MEDS: CALCIUM CHL 100MG/ML 1,000 MG in D5W 5% 100 ML IV ONE (21:08)
[2023-09-15] MEDS: SODIUM BICARB 8.4% 50Meq/50ml SYR INJ IV ONE (21:08)
[2023-09-16] VITALS (72 sets, daily range): BP systolic 112–164; BP diastolic 49–73; PULSE 68–104; RESP 10–25; TEMP 97.9–99.9; O2SAT 91–100
[2023-09-16 04:05] LABS: Basophils # (auto) 0 10 ^3/uL (0-0.2); Eosinophils # (auto) 0.1 10 ^3/uL (0-0.8); Eosinophils % (auto) 1.2 % (0.0-7.0); Hematocrit 20.5 % (41.0-53.0); Lymphocytes # (auto) 0.4 10 ^3/uL (0.4-5.4); Monocytes # (auto) 0.5 10 ^3/uL (0-1.3); Neutrophils # (auto) 4.4 10 ^3/uL (1.6-8.6)
[2023-09-16 04:10] LABS: Basophils % (auto) 0.1 % (0.0-2.0); Lymphocytes % (auto) 8.2 % (10.0-50.0); Mean Corpuscular Hemoglobin 29.9 pg (28.0-32.0); Mean Corpuscular Hgb Conc. 33.4 g/dL (32.0-36.0); Mean Corpuscular Volume 89.5 fL (80.0-100.0); Monocytes % (auto) 9.1 % (0.0-12.0); Neutrophils % (auto) 81.4 % (37.0-80.0); Red Blood Cells 2.28 10^6/uL (4.5-5.90); Red Cell Distribution Width 18.2 % (11.8-14.3); White Blood Cell 5.4 10^3/uL (4.4-10.8)
[2023-09-16 04:19] LABS: Alanine Aminotransferase 28 U/L (7-40); Albumin 2.9 g/dL (3.2-4.8); Alkaline Phosphatase 51 U/L (46-116); Anion Gap 13 (5-15); Aspartate Aminotransferase 154 U/L (13-40); BUN/Creatinine Ratio 9.3 (10.0-20.0); Calcium 8.1 mg/dL (8.7-10.4); Carbon Dioxide 28 mmol/L (20-30); Chloride 90 mmol/L (98-107); Glucose 118 mg/dL (74-106); Magnesium 2.2 mg/dL (1.6-2.6); Sodium 131 mmol/L (136-145)
[2023-09-16 04:20] LABS: Bilirubin, Total < 0.2 mg/dL (0.2-1.0); Total Protein 5.1 g/dL (5.7-8.2)
[2023-09-16 04:32] LABS: Blood Urea Nitrogen 62 mg/dL (9-23)
[2023-09-16 04:40] LABS: Hemoglobin 6.8 g/dL (13.5-17.5)
[2023-09-16 08:12] LABS: Base Excess 6.2 mmol/L (-2.0-2.0)
[2023-09-16 08:39] LABS: Hepatitis B Surface Antibody Negative (Negative)
[2023-09-16 08:51] LABS: Hepatitis B Surface Antigen Negative (Negative)
[2023-09-16] MEDS: DOPamine 1600MCG/ML D5W 250 ML IV SCH (09:19)
[2023-09-16] MEDS: SODIUM CHL 0.9% 1000 ML BAG XX ONE (11:30)
[2023-09-16 11:44] LABS: Base Excess 2.8 mmol/L (-2.0-2.0)
[2023-09-16] MEDS ORDERED: VANCOMYCIN PER PHARMACY 0 MG IV SCH (17:15)
[2023-09-16] MEDS: VANCOMYCIN 1GM/200ML 200 ML IV ONE (17:34)
[2023-09-16 20:45] LABS: Hemoglobin 7.2 g/dL (13.5-17.5)
[2023-09-16 20:56] LABS: Hematocrit 21.5 % (41.0-53.0)
[2023-09-17] VITALS (107 sets, daily range): BP systolic 93–138; BP diastolic 52–75; PULSE 79–82; RESP 9–23; TEMP 96.8–98.4; O2SAT 91–100
[2023-09-17 04:44] LABS: % Iron Saturation 14.4 % (20-55)
[2023-09-17 04:45] LABS: Alanine Aminotransferase 23 U/L (7-40); Albumin 2.9 g/dL (3.2-4.8); Alkaline Phosphatase 56 U/L (46-116); Anion Gap 11 (5-15); Aspartate Aminotransferase 109 U/L (13-40); BUN/Creatinine Ratio 9.1 (10.0-20.0); Bilirubin, Total 0.2 mg/dL (0.2-1.0); Calcium 8.1 mg/dL (8.7-10.4); Carbon Dioxide 31 mmol/L (20-30); Chloride 93 mmol/L (98-107); Glucose 80 mg/dL (74-106); Magnesium 2.1 mg/dL (1.6-2.6); Potassium 4.2 mmol/L (3.5-5.1); Sodium 135 mmol/L (136-145); Total Protein 5.1 g/dL (5.7-8.2)
[2023-09-17 05:14] LABS: Blood Urea Nitrogen 44 mg/dL (9-23)
[2023-09-17 05:15] LABS: Basophils # (auto) 0 10 ^3/uL (0-0.2); Basophils % (auto) 0.3 % (0.0-2.0); Eosinophils # (auto) 0.5 10 ^3/uL (0-0.8); Lymphocytes # (auto) 0.5 10 ^3/uL (0.4-5.4); Monocytes # (auto) 0.5 10 ^3/uL (0-1.3); Monocytes % (auto) 5.5 % (0.0-12.0); Red Blood Cells 2.47 10^6/uL (4.5-5.90)
[2023-09-17 05:16] LABS: Eosinophils % (auto) 5.8 % (0.0-7.0); Hematocrit 22.3 % (41.0-53.0); Hemoglobin 7.5 g/dL (13.5-17.5); Lymphocytes % (auto) 5.6 % (10.0-50.0); Mean Corpuscular Hemoglobin 30.3 pg (28.0-32.0); Mean Corpuscular Hgb Conc. 33.5 g/dL (32.0-36.0); Mean Corpuscular Volume 90.4 fL (80.0-100.0); Neutrophils # (auto) 7.4 10 ^3/uL (1.6-8.6); Neutrophils % (auto) 82.8 % (37.0-80.0); Red Cell Distribution Width 17.6 % (11.8-14.3); White Blood Cell 8.9 10^3/uL (4.4-10.8)
[2023-09-17 08:12] LABS: Base Excess 5.4 mmol/L (-2.0-2.0)
[2023-09-17] MEDS ORDERED: VANCOMYCIN PER PHARMACY 0 MG IV SCH (17:00)
[2023-09-17] MEDS: VANCOMYCIN 1GM/200ML 200 ML IV ONE (18:03)
[2023-09-17] MEDS: cefTRIAXone 1GM/50ML D5W 50 ML IV ONE (18:04)
[2023-09-17] MEDS: ASPirin 81 mg TAB PO ONE (19:05)
[2023-09-17] MEDS: CLOPIDOGREL BISULFATE 75 MG TAB PO ONE (19:05)
[2023-09-17] MEDS: EPOETIN ALFA-EPBX 10,000 UNIT/1ML VIAL SC ONE (22:06)
[2023-09-18] VITALS (112 sets, daily range): BP systolic 116–176; BP diastolic 47–78; PULSE 47–80; RESP 9–22; TEMP 96.6–99.1; O2SAT 91–100
[2023-09-18 03:54] LABS: Basophils # (auto) 0 10 ^3/uL (0-0.2); Neutrophils # (auto) 7.4 10 ^3/uL (1.6-8.6)
[2023-09-18 03:56] LABS: Basophils % (auto) 0.4 % (0.0-2.0); Eosinophils # (auto) 0.6 10 ^3/uL (0-0.8); Eosinophils % (auto) 6.4 % (0.0-7.0); Hematocrit 19.6 % (41.0-53.0); Lymphocytes # (auto) 0.4 10 ^3/uL (0.4-5.4); Lymphocytes % (auto) 4.8 % (10.0-50.0); Mean Corpuscular Hemoglobin 30.8 pg (28.0-32.0); Mean Corpuscular Hgb Conc. 33.9 g/dL (32.0-36.0); Monocytes # (auto) 0.5 10 ^3/uL (0-1.3); Monocytes % (auto) 5.7 % (0.0-12.0); Neutrophils % (auto) 82.7 % (37.0-80.0); Red Blood Cells 2.15 10^6/uL (4.5-5.90); Red Cell Distribution Width 17.2 % (11.8-14.3); White Blood Cell 8.9 10^3/uL (4.4-10.8)
[2023-09-18 04:02] LABS: Hemoglobin 6.6 g/dL (13.5-17.5)
[2023-09-18 04:05] LABS: INR 0.97 (0.9-1.15); Partial Thromboplastin Time 28.1 SEC (24.5-34.5); Prothrombin Time 10.3 sec (9.3-11.8)
[2023-09-18 04:13] LABS: Alanine Aminotransferase 18 U/L (7-40); Albumin 2.9 g/dL (3.2-4.8); Alkaline Phosphatase 62 U/L (46-116); Anion Gap 13 (5-15); Aspartate Aminotransferase 68 U/L (13-40); BUN/Creatinine Ratio 9.1 (10.0-20.0); Bilirubin, Total 0.2 mg/dL (0.2-1.0); Blood Urea Nitrogen 41 mg/dL (9-23); Calcium 8.1 mg/dL (8.7-10.4); Carbon Dioxide 27 mmol/L (20-30); Chloride 96 mmol/L (98-107); Glucose 72 mg/dL (74-106); Magnesium 2.1 mg/dL (1.6-2.6); Potassium 4.1 mmol/L (3.5-5.1); Sodium 136 mmol/L (136-145); Total Protein 5.2 g/dL (5.7-8.2)
[2023-09-18] MEDS: DEXTROSE (50%) 50ML SYRG IV PRN (05:55)
[2023-09-18 07:44] LABS: Base Excess 3.1 mmol/L (-2.0-2.0)
[2023-09-18] MEDS: cefTRIAXone 1GM/50ML D5W 50 ML IV SCH (09:41)
[2023-09-18 11:46] LABS: Hematocrit 25.8 % (41.0-53.0); Hemoglobin 8.6 g/dL (13.5-17.5)
[2023-09-18] MEDS: CLOPIDOGREL BISULFATE 75 MG TAB PO SCH (13:28)
[2023-09-18] MEDS: ASPirin 81 mg TAB PO SCH (13:28)
[2023-09-18] MEDS: Nepro With Carb Steady 1 Liter Bottle GT SCH (17:13)
[2023-09-18] MEDS: hydrALAZINE HCL 20 MG/ML VL IV PRN (19:33)
[2023-09-19] VITALS (107 sets, daily range): BP systolic 110–211; BP diastolic 37–79; PULSE 50–71; RESP 10–20; TEMP 96.8–100; O2SAT 96–100
[2023-09-19 03:58] LABS: Hemoglobin 7.7 g/dL (13.5-17.5)
[2023-09-19 04:01] LABS: Mean Corpuscular Hemoglobin 30.2 pg (28.0-32.0); Mean Corpuscular Hgb Conc. 33.5 g/dL (32.0-36.0); Mean Corpuscular Volume 90.2 fL (80.0-100.0); Red Blood Cells 2.55 10^6/uL (4.5-5.90); Red Cell Distribution Width 16.9 % (11.8-14.3); White Blood Cell 4.3 10^3/uL (4.4-10.8)
[2023-09-19 04:15] LABS: Alanine Aminotransferase 15 U/L (7-40); Alkaline Phosphatase 73 U/L (46-116); Anion Gap 13 (5-15); Aspartate Aminotransferase 47 U/L (13-40); BUN/Creatinine Ratio 8.9 (10.0-20.0); Bilirubin, Total 0.2 mg/dL (0.2-1.0); Calcium 8.4 mg/dL (8.7-10.4); Carbon Dioxide 26 mmol/L (20-30); Chloride 96 mmol/L (98-107); Glucose 82 mg/dL (74-106); Magnesium 2.2 mg/dL (1.6-2.6); Potassium 4.2 mmol/L (3.5-5.1); Sodium 135 mmol/L (136-145); Total Protein 5.4 g/dL (5.7-8.2)
[2023-09-19 04:18] LABS: Basophils % (manual) 0 (0.0-2.0); Blast Cells 0; Metamyelocytes % 0; Myelocytes % 0; Promyelocytes % 0; Reactive Lymphocytes 0
[2023-09-19 04:42] LABS: Blood Urea Nitrogen 54 mg/dL (9-23)
[2023-09-19] MEDS: SODIUM CHL 0.9% 1000 ML BAG XX ONE (07:00)
[2023-09-19 07:55] LABS: Base Excess 1.4 mmol/L (-2.0-2.0)
[2023-09-19 08:06] LABS: Band Neutrophils % (manual) 9; Eosinophils % (manual) 4 (0-7); Lymphocytes % (manual) 19 (10.0-50.0); Monocytes % (manual) 1 (0-12)
[2023-09-19 08:07] LABS: Platelet Estimate Decreased
[2023-09-19] MEDS: hydrALAZINE HCL 25 MG TAB PO SCH (14:24)
[2023-09-19] MEDS: LISINOPRIL 20 MG TAB PO ONE (15:10)
[2023-09-19] MEDS: EPOETIN ALFA-EPBX 4,000 UNIT/ML VIAL SC ONE (20:47)
[2023-09-20] VITALS (112 sets, daily range): BP systolic 134–198; BP diastolic 52–94; PULSE 56–84; RESP 2–27; TEMP 48.2–49.6; O2SAT 97–100
[2023-09-20 03:29] LABS: Hematocrit 25.6 % (41.0-53.0); Hemoglobin 8.5 g/dL (13.5-17.5); Mean Corpuscular Hemoglobin 30.1 pg (28.0-32.0); Mean Corpuscular Hgb Conc. 33.1 g/dL (32.0-36.0); Mean Corpuscular Volume 90.8 fL (80.0-100.0); Red Blood Cells 2.82 10^6/uL (4.5-5.90); Red Cell Distribution Width 16.6 % (11.8-14.3); White Blood Cell 4.5 10^3/uL (4.4-10.8)
[2023-09-20 03:38] LABS: Alanine Aminotransferase 15 U/L (7-40); Alkaline Phosphatase 95 U/L (46-116); Anion Gap 11 (5-15); BUN/Creatinine Ratio 7.6 (10.0-20.0); Calcium 8.4 mg/dL (8.7-10.4); Carbon Dioxide 26 mmol/L (20-30); Chloride 99 mmol/L (98-107); Glucose 97 mg/dL (74-106); Magnesium 2.2 mg/dL (1.6-2.6); Potassium 3.9 mmol/L (3.5-5.1); Sodium 136 mmol/L (136-145)
[2023-09-20 03:39] LABS: Albumin 3.3 g/dL (3.2-4.8); Aspartate Aminotransferase 45 U/L (13-40); Bilirubin, Total 0.2 mg/dL (0.2-1.0)
[2023-09-20 03:41] LABS: Basophils % (manual) 0 (0.0-2.0); Blast Cells 0; Monocytes % (manual) 0 (0-12); Promyelocytes % 0; Reactive Lymphocytes 0
[2023-09-20 03:45] LABS: Blood Urea Nitrogen 38 mg/dL (9-23)
[2023-09-20 04:58] LABS: Band Neutrophils % (manual) 26; Lymphocytes % (manual) 6 (10.0-50.0)
[2023-09-20 04:59] LABS: Eosinophils % (manual) 2 (0-7); Metamyelocytes % 4; Myelocytes % 8; Platelet Estimate Decreased
[2023-09-20] MEDS: LISINOPRIL 20 MG TAB PO SCH (10:00)
[2023-09-20] MEDS ORDERED: LISINOPRIL 20 MG TAB PO SCH (10:00)
[2023-09-20] MEDS: SODIUM CHL 0.9% 1000 ML BAG XX ONE (10:00)
[2023-09-20] MEDS: hydrALAZINE HCL 25 MG TAB PO SCH (13:43)
[2023-09-20] MEDS: VANCOMYCIN 1GM/200ML 200 ML IV ONE (13:44)
[2023-09-20] MEDS: METOPROLOL TARTRATE 1MG/1ML-5ML VIAL IV PRN (17:36)
[2023-09-21] VITALS (115 sets, daily range): BP systolic 113–193; BP diastolic 42–92; PULSE 56–79; RESP 10–22; TEMP 91–99.3; O2SAT 97–100
[2023-09-21 03:54] LABS: Basophils # (auto) 0 10 ^3/uL (0-0.2); Basophils % (auto) 0.5 % (0.0-2.0); Eosinophils # (auto) 0.3 10 ^3/uL (0-0.8); Hemoglobin 8.5 g/dL (13.5-17.5); Lymphocytes # (auto) 0.6 10 ^3/uL (0.4-5.4); Lymphocytes % (auto) 13.7 % (10.0-50.0); Mean Corpuscular Hemoglobin 30.8 pg (28.0-32.0); Mean Corpuscular Volume 90.6 fL (80.0-100.0); Monocytes # (auto) 0.8 10 ^3/uL (0-1.3); Monocytes % (auto) 17.7 % (0.0-12.0); Neutrophils # (auto) 2.8 10 ^3/uL (1.6-8.6); Neutrophils % (auto) 61.1 % (37.0-80.0); Nucleated Red Blood Cells % 0.2 %; Red Blood Cells 2.76 10^6/uL (4.5-5.90); Red Cell Distribution Width 17.2 % (11.8-14.3); White Blood Cell 4.5 10^3/uL (4.4-10.8)
[2023-09-21 04:06] LABS: Alanine Aminotransferase 11 U/L (7-40); Albumin 3.3 g/dL (3.2-4.8); Alkaline Phosphatase 86 U/L (46-116); Anion Gap 15 (5-15); Aspartate Aminotransferase 33 U/L (13-40); BUN/Creatinine Ratio 8.1 (10.0-20.0); Blood Urea Nitrogen 36 mg/dL (9-23); Calcium 8.7 mg/dL (8.7-10.4); Carbon Dioxide 25 mmol/L (20-30); Chloride 99 mmol/L (98-107); Glucose 79 mg/dL (74-106); Magnesium 2.2 mg/dL (1.6-2.6); Potassium 4.1 mmol/L (3.5-5.1); Sodium 139 mmol/L (136-145)
[2023-09-21 04:07] LABS: Bilirubin, Total 0.2 mg/dL (0.2-1.0)
[2023-09-21 07:02] LABS: Base Excess 0.5 mmol/L (-2.0-2.0)
[2023-09-21 08:48] LABS: INR 0.99 (0.9-1.15); Prothrombin Time 10.5 sec (9.3-11.8)
[2023-09-21] MEDS: SODIUM CHLORIDE 0.9% 1,000 ML IV SCH (22:34)
[2023-09-22] VITALS (106 sets, daily range): BP systolic 94–184; BP diastolic 41–72; PULSE 53–73; RESP 10–19; TEMP 96.3–99.3; O2SAT 96–100
[2023-09-22 05:41] LABS: Basophils # (auto) 0 10 ^3/uL (0-0.2); Basophils % (auto) 0.7 % (0.0-2.0); Eosinophils # (auto) 0.4 10 ^3/uL (0-0.8); Eosinophils % (auto) 6.5 % (0.0-7.0); Hematocrit 24.2 % (41.0-53.0); Hemoglobin 8.1 g/dL (13.5-17.5); Lymphocytes # (auto) 0.6 10 ^3/uL (0.4-5.4); Lymphocytes % (auto) 9.5 % (10.0-50.0); Mean Corpuscular Hemoglobin 30.4 pg (28.0-32.0); Mean Corpuscular Hgb Conc. 33.5 g/dL (32.0-36.0); Mean Corpuscular Volume 90.7 fL (80.0-100.0); Monocytes # (auto) 0.7 10 ^3/uL (0-1.3); Monocytes % (auto) 12.2 % (0.0-12.0); Neutrophils # (auto) 4.2 10 ^3/uL (1.6-8.6); Neutrophils % (auto) 71.1 % (37.0-80.0); Nucleated Red Blood Cells % 0.1 %; Red Blood Cells 2.67 10^6/uL (4.5-5.90); Red Cell Distribution Width 16.4 % (11.8-14.3); White Blood Cell 5.9 10^3/uL (4.4-10.8)
[2023-09-22 05:43] LABS: Chloride 98 mmol/L (98-107); Sodium 136 mmol/L (136-145)
[2023-09-22 05:46] LABS: Anion Gap 15 (5-15); Carbon Dioxide 23 mmol/L (20-30)
[2023-09-22 05:47] LABS: Calcium 8.4 mg/dL (8.7-10.4)
[2023-09-22 05:51] LABS: Glucose 73 mg/dL (74-106)
[2023-09-22 05:52] LABS: Alkaline Phosphatase 82 U/L (46-116); Magnesium 2.4 mg/dL (1.6-2.6)
[2023-09-22 05:53] LABS: Aspartate Aminotransferase 27 U/L (13-40)
[2023-09-22 05:54] LABS: Bilirubin, Total 0.2 mg/dL (0.2-1.0); Total Protein 5.9 g/dL (5.7-8.2)
[2023-09-22 05:56] LABS: Alanine Aminotransferase 11 U/L (7-40); Albumin 3.2 g/dL (3.2-4.8); BUN/Creatinine Ratio 9.2 (10.0-20.0); Potassium 4.7 mmol/L (3.5-5.1)
[2023-09-22 05:58] LABS: Blood Urea Nitrogen 54 mg/dL (9-23)
[2023-09-22 06:31] LABS: Base Excess -1.9 mmol/L (-2.0-2.0)
[2023-09-22] MEDS: HEPARIN IN NS 1000Units/500mL 1,500 ML ONE (07:51)
[2023-09-22] MEDS: LIDOCAINE 2%HCL (LOCAL ANESTH.) INJ 20ML MDV ONE (07:52)
[2023-09-22] MEDS: IODIXANOL 320MG/ML 100ML BTL IV ONE (07:52)
[2023-09-22] MEDS: VANCOMYCIN 1GM/200ML 200 ML IV ONE (07:53)
[2023-09-22] MEDS: ATROPINE SULF 1 MG/10ml SYR ONE (08:10)
[2023-09-22] MEDS: hydrALAZINE HCL 20 MG/ML VL ONE (08:39)
[2023-09-22] MEDS: fentaNYL CITRATE 100 MCG/2 ML VL ONE (08:50)
[2023-09-22] MEDS: HEPARIN SODIUM (PORCINE) 5000 UNITS/ML 1ML VIAL ONE (09:11)
[2023-09-23] VITALS (79 sets, daily range): BP systolic 100–197; BP diastolic 52–77; PULSE 56–71; RESP 10–36; TEMP 97.2–99.6; O2SAT 100
[2023-09-23 03:51] LABS: Basophils # (auto) 0 10 ^3/uL (0-0.2); Basophils % (auto) 0.6 % (0.0-2.0); Eosinophils # (auto) 0.4 10 ^3/uL (0-0.8); Eosinophils % (auto) 6.6 % (0.0-7.0); Hematocrit 26.6 % (41.0-53.0); Hemoglobin 9.1 g/dL (13.5-17.5); Lymphocytes # (auto) 0.5 10 ^3/uL (0.4-5.4); Lymphocytes % (auto) 7.8 % (10.0-50.0); Mean Corpuscular Hemoglobin 30.8 pg (28.0-32.0); Mean Corpuscular Hgb Conc. 34.3 g/dL (32.0-36.0); Mean Corpuscular Volume 89.7 fL (80.0-100.0); Monocytes # (auto) 0.6 10 ^3/uL (0-1.3); Monocytes % (auto) 9.7 % (0.0-12.0); Neutrophils % (auto) 75.3 % (37.0-80.0); Nucleated Red Blood Cells % 0.2 %; Red Blood Cells 2.96 10^6/uL (4.5-5.90); Red Cell Distribution Width 16.5 % (11.8-14.3); White Blood Cell 6.7 10^3/uL (4.4-10.8)
[2023-09-23 04:06] LABS: Albumin 3.2 g/dL (3.2-4.8); Alkaline Phosphatase 84 U/L (46-116); Anion Gap 15 (5-15); Aspartate Aminotransferase 26 U/L (13-40); BUN/Creatinine Ratio 9.9 (10.0-20.0); Calcium 8.2 mg/dL (8.7-10.4); Carbon Dioxide 21 mmol/L (20-30); Chloride 100 mmol/L (98-107); Glucose 115 mg/dL (74-106); Potassium 4.8 mmol/L (3.5-5.1); Sodium 136 mmol/L (136-145)
[2023-09-23 04:07] LABS: Bilirubin, Total < 0.2 mg/dL (0.2-1.0); Total Protein 5.8 g/dL (5.7-8.2)
[2023-09-23 04:16] LABS: Alanine Aminotransferase < 9 U/L (7-40); Blood Urea Nitrogen 67 mg/dL (9-23)
[2023-09-23 06:36] LABS: Base Excess -4.5 mmol/L (-2.0-2.0)
[2023-09-23] MEDS: SODIUM CHL 0.9% 1000 ML BAG XX ONE (07:00)
[2023-09-23] MEDS: HYDROCORTISONE SOD SUCC 100 MG/2ML INJ VIAL IV ONE (16:23)
[2023-09-23] MEDS: HYDROCORTISONE SOD SUCC 100 MG/2ML INJ VIAL IV SCH (16:24)
[2023-09-23] MEDS: VANCOMYCIN 500 MG in D5W 5% 100 ML IV ONE (16:37)
[2023-09-23] MEDS: ATORVASTATIN 20 MG TAB PO SCH (22:23)
[2023-09-23] MEDS: METOPROLOL TARTRATE 25 MG TAB PO SCH (22:24)
[2023-09-23] MEDS: EPOETIN ALFA-EPBX 10,000 UNIT/1ML VIAL IV ONE (22:26)
[2023-09-24] VITALS (113 sets, daily range): BP systolic 96–203; BP diastolic 49–89; PULSE 55–77; RESP 8–27; TEMP 97.3–100.4; O2SAT 98–100
[2023-09-24 03:59] LABS: Basophils # (auto) 0 10 ^3/uL (0-0.2); Basophils % (auto) 0.3 % (0.0-2.0); Eosinophils # (auto) 0 10 ^3/uL (0-0.8); Eosinophils % (auto) 0.2 % (0.0-7.0); Hematocrit 27.8 % (41.0-53.0); Hemoglobin 9.3 g/dL (13.5-17.5); Lymphocytes # (auto) 0.4 10 ^3/uL (0.4-5.4); Lymphocytes % (auto) 4.3 % (10.0-50.0); Mean Corpuscular Hgb Conc. 33.5 g/dL (32.0-36.0); Mean Corpuscular Volume 89.5 fL (80.0-100.0); Monocytes # (auto) 0.2 10 ^3/uL (0-1.3); Monocytes % (auto) 2.7 % (0.0-12.0); Neutrophils # (auto) 8.2 10 ^3/uL (1.6-8.6); Neutrophils % (auto) 92.5 % (37.0-80.0); Nucleated Red Blood Cells % 0.2 %; Red Cell Distribution Width 16.5 % (11.8-14.3); White Blood Cell 8.9 10^3/uL (4.4-10.8)
[2023-09-24 04:16] LABS: Anion Gap 12 (5-15); Carbon Dioxide 26 mmol/L (20-30); Chloride 97 mmol/L (98-107); Potassium 4.7 mmol/L (3.5-5.1); Sodium 135 mmol/L (136-145)
[2023-09-24 04:17] LABS: Calcium 8.5 mg/dL (8.7-10.4)
[2023-09-24 04:22] LABS: BUN/Creatinine Ratio 9.2 (10.0-20.0); Glucose 151 mg/dL (74-106); Magnesium 2.2 mg/dL (1.6-2.6)
[2023-09-24 04:23] LABS: Blood Urea Nitrogen 49 mg/dL (9-23)
[2023-09-24] MEDS: fentaNYL Drip 2500mCg/250mlNS 250 ML IV SCH (15:18)
[2023-09-24] MEDS: HYDROCORTISONE SOD SUCC 100 MG/2ML INJ VIAL IV SCH (19:08)
[2023-09-25] VITALS (115 sets, daily range): BP systolic 80–194; BP diastolic 44–115; PULSE 52–67; RESP 6–20; TEMP 95.4–99.5; O2SAT 96–100
[2023-09-25 04:31] LABS: Hematocrit 34.7 % (41.0-53.0); Hemoglobin 11.4 g/dL (13.5-17.5); Mean Corpuscular Hemoglobin 30.2 pg (28.0-32.0); Mean Corpuscular Hgb Conc. 32.9 g/dL (32.0-36.0); Mean Corpuscular Volume 91.6 fL (80.0-100.0); Red Blood Cells 3.79 10^6/uL (4.5-5.90); Red Cell Distribution Width 16.9 % (11.8-14.3); White Blood Cell 8.2 10^3/uL (4.4-10.8)
[2023-09-25 04:36] LABS: Basophils % (manual) 0 (0.0-2.0); Blast Cells 0; Eosinophils % (manual) 0 (0-7); Metamyelocytes % 0; Myelocytes % 0; Promyelocytes % 0; Reactive Lymphocytes 0
[2023-09-25 04:52] LABS: Albumin 4.1 g/dL (3.2-4.8); Alkaline Phosphatase 98 U/L (46-116); Anion Gap 16 (5-15); Aspartate Aminotransferase 26 U/L (13-40); BUN/Creatinine Ratio 9.5 (10.0-20.0); Bilirubin, Total < 0.2 mg/dL (0.2-1.0); Calcium 9.3 mg/dL (8.5-10.1); Carbon Dioxide 22 mmol/L (20-30); Chloride 95 mmol/L (98-107); Glucose 140 mg/dL (74-106); Sodium 133 mmol/L (136-145); Total Protein 7.8 g/dL (5.7-8.2)
[2023-09-25 04:53] LABS: Alanine Aminotransferase < 9 U/L (7-40); Blood Urea Nitrogen 64 mg/dL (9-23)
[2023-09-25 04:55] LABS: Potassium 5.9 mmol/L (3.5-5.1)
[2023-09-25 05:07] LABS: Magnesium 2.5 mg/dL (1.6-2.6)
[2023-09-25 05:15] LABS: Band Neutrophils % (manual) 2; Lymphocytes % (manual) 16 (10.0-50.0); Monocytes % (manual) 3 (0-12)
[2023-09-25 05:16] LABS: Platelet Estimate Adequate
[2023-09-25 06:49] LABS: Base Excess -1.7 mmol/L (-2.0-2.0)
[2023-09-25] MEDS: SODIUM ZIRCONIUM CYCL 10 GM PAK PO ONE (09:44)
[2023-09-25] MEDS: ALBUMIN 25% 100 ML IV PRN (15:35)
[2023-09-25] MEDS: NOREPINEPHRINE 8 MG/250ML KIT 250 ML IV SCH (15:40)
[2023-09-25] MEDS: NOREPINEPHRINE 8 MG/250ML KIT 250 ML IV ONE (15:56)
[2023-09-25] MEDS: SODIUM CHL 0.9% 1000 ML BAG XX ONE (16:09)
[2023-09-25] MEDS: hydrALAZINE HCL 25 MG TAB PO SCH (22:36)
[2023-09-26] VITALS (101 sets, daily range): BP systolic 100–189; BP diastolic 26–75; PULSE 55–70; RESP 7–20; TEMP 97–99.3; O2SAT 97–100
[2023-09-26 04:06] LABS: Hematocrit 28.3 % (41.0-53.0); Hemoglobin 9.3 g/dL (13.5-17.5); Mean Corpuscular Hemoglobin 29.9 pg (28.0-32.0); Mean Corpuscular Volume 90.5 fL (80.0-100.0); Red Blood Cells 3.12 10^6/uL (4.5-5.90); Red Cell Distribution Width 16.5 % (11.8-14.3); White Blood Cell 9.2 10^3/uL (4.4-10.8)
[2023-09-26 04:08] LABS: INR 0.97 (0.9-1.15); Partial Thromboplastin Time 21.1 SEC (24.5-34.5); Prothrombin Time 10.3 sec (9.3-11.8)
[2023-09-26 04:14] LABS: Albumin 3.6 g/dL (3.2-4.8); Alkaline Phosphatase 88 U/L (46-116); Anion Gap 16 (5-15); Calcium 8.6 mg/dL (8.5-10.1); Carbon Dioxide 26 mmol/L (20-30); Chloride 94 mmol/L (98-107); Glucose 174 mg/dL (74-106); Potassium 4.7 mmol/L (3.5-5.1); Sodium 136 mmol/L (136-145)
[2023-09-26 04:15] LABS: Aspartate Aminotransferase 20 U/L (13-40); BUN/Creatinine Ratio 11.5 (10.0-20.0); Bilirubin, Total < 0.2 mg/dL (0.2-1.0); Blood Urea Nitrogen 60 mg/dL (9-23); Total Protein 6.6 g/dL (5.7-8.2)
[2023-09-26 04:16] LABS: Alanine Aminotransferase < 9 U/L (7-40)
[2023-09-26 04:20] LABS: Basophils % (manual) 0 (0.0-2.0); Blast Cells 0; Eosinophils % (manual) 0 (0-7); Metamyelocytes % 0; Myelocytes % 0; Promyelocytes % 0; Reactive Lymphocytes 0
[2023-09-26 04:56] LABS: Band Neutrophils % (manual) 4; Lymphocytes % (manual) 8 (10.0-50.0); Monocytes % (manual) 5 (0-12); Platelet Estimate Adequate
[2023-09-26] MEDS: HEPARIN SODIUM (PORCINE) 5000 UNITS/ML 1ML VIAL SC SCH (14:27)
[2023-09-27] VITALS (94 sets, daily range): BP systolic 105–196; BP diastolic 30–72; PULSE 55–81; RESP 7–18; TEMP 93.4–98.9; O2SAT 92–100
[2023-09-27 04:15] LABS: Hematocrit 28.7 % (41.0-53.0); Hemoglobin 9.7 g/dL (13.5-17.5); Mean Corpuscular Hemoglobin 30.8 pg (28.0-32.0); Mean Corpuscular Hgb Conc. 33.9 g/dL (32.0-36.0); Mean Corpuscular Volume 90.9 fL (80.0-100.0); Red Blood Cells 3.16 10^6/uL (4.5-5.90); Red Cell Distribution Width 16.6 % (11.8-14.3); White Blood Cell 8.2 10^3/uL (4.4-10.8)
[2023-09-27 04:17] LABS: Basophils % (manual) 0 (0.0-2.0); Blast Cells 0; Eosinophils % (manual) 0 (0-7); Metamyelocytes % 0; Myelocytes % 0; Promyelocytes % 0; Reactive Lymphocytes 0
[2023-09-27 04:30] LABS: Alkaline Phosphatase 87 U/L (46-116); Anion Gap 15 (5-15); Aspartate Aminotransferase 19 U/L (13-40); BUN/Creatinine Ratio 12.9 (10.0-20.0); Calcium 8.7 mg/dL (8.5-10.1); Carbon Dioxide 24 mmol/L (20-30); Chloride 94 mmol/L (98-107); Glucose 137 mg/dL (74-106); Potassium 5.5 mmol/L (3.5-5.1); Sodium 133 mmol/L (136-145)
[2023-09-27 04:31] LABS: Albumin 3.6 g/dL (3.2-4.8); Bilirubin, Total < 0.2 mg/dL (0.2-1.0); Total Protein 6.6 g/dL (5.7-8.2)
[2023-09-27 04:50] LABS: Alanine Aminotransferase < 9 U/L (7-40)
[2023-09-27 04:52] LABS: Blood Urea Nitrogen 87 mg/dL (9-23)
[2023-09-27 05:12] LABS: Band Neutrophils % (manual) 3; Lymphocytes % (manual) 16 (10.0-50.0); Monocytes % (manual) 8 (0-12); Platelet Estimate Adequate
[2023-09-27 06:48] LABS: Base Excess -4.2 mmol/L (-2.0-2.0)
[2023-09-27] MEDS: MINOXIDIL 2.5 MG TAB PO SCH (09:30)
[2023-09-27] MEDS: NIFEdipine ER 30 MG TAB PO SCH (09:30)
[2023-09-27] MEDS: hydrALAZINE HCL 25 MG TAB PO SCH (11:52)
[2023-09-27 17:46] LABS: Base Excess 0.4 mmol/L (-2.0-2.0)
[2023-09-27] MEDS: EPOETIN ALFA-EPBX 4,000 UNIT/ML VIAL SC ONE (21:29)
[2023-09-28] VITALS (101 sets, daily range): BP systolic 82–175; BP diastolic 21–68; PULSE 77–99; RESP 8–30; TEMP 97.3–100.4; O2SAT 82–100
[2023-09-28 04:04] LABS: Hematocrit 31.1 % (41.0-53.0); Hemoglobin 10.3 g/dL (13.5-17.5); Mean Corpuscular Volume 90.9 fL (80.0-100.0); Red Blood Cells 3.42 10^6/uL (4.5-5.90); Red Cell Distribution Width 16.5 % (11.8-14.3); White Blood Cell 11.4 10^3/uL (4.4-10.8)
[2023-09-28 04:07] LABS: Chloride 94 mmol/L (98-107); Sodium 134 mmol/L (136-145)
[2023-09-28 04:08] LABS: Anion Gap 15 (5-15); Band Neutrophils % (manual) 0; Basophils % (manual) 0 (0.0-2.0); Blast Cells 0; Calcium 9.2 mg/dL (8.5-10.1); Carbon Dioxide 25 mmol/L (20-30); Metamyelocytes % 0; Promyelocytes % 0; Reactive Lymphocytes 0
[2023-09-28 04:13] LABS: BUN/Creatinine Ratio 12.3 (10.0-20.0); Glucose 153 mg/dL (74-106)
[2023-09-28 04:20] LABS: Blood Urea Nitrogen 77 mg/dL (9-23)
[2023-09-28 04:55] LABS: Eosinophils % (manual) 2 (0-7); Lymphocytes % (manual) 21 (10.0-50.0); Monocytes % (manual) 10 (0-12); Myelocytes % 2; Platelet Estimate Adequate
[2023-09-28 06:52] LABS: Base Excess -0.2 mmol/L (-2.0-2.0)
[2023-09-28] MEDS: SODIUM CHL 0.9% 1000 ML BAG XX ONE ×2 (10:30→11:00)
[2023-09-28] MEDS: ACETAMINOPHEN 650 mg PER 20.3 mL UD GT PRN (18:05)
[2023-09-29] VITALS (109 sets, daily range): BP systolic 100–147; BP diastolic 26–57; PULSE 77–100; RESP 7–25; TEMP 98.7–99.9; O2SAT 90–100
[2023-09-29 04:25] LABS: Basophils # (auto) 0 10 ^3/uL (0-0.2); Basophils % (auto) 0.3 % (0.0-2.0); Eosinophils # (auto) 0.1 10 ^3/uL (0-0.8); Eosinophils % (auto) 0.5 % (0.0-7.0); Hematocrit 30.2 % (41.0-53.0); Lymphocytes # (auto) 0.8 10 ^3/uL (0.4-5.4); Lymphocytes % (auto) 4.7 % (10.0-50.0); Mean Corpuscular Hemoglobin 30.3 pg (28.0-32.0); Mean Corpuscular Hgb Conc. 32.9 g/dL (32.0-36.0); Mean Corpuscular Volume 91.9 fL (80.0-100.0); Monocytes % (auto) 6.2 % (0.0-12.0); Neutrophils # (auto) 14.2 10 ^3/uL (1.6-8.6); Neutrophils % (auto) 88.3 % (37.0-80.0); Nucleated Red Blood Cells % 0.1 %; Red Blood Cells 3.29 10^6/uL (4.5-5.90); White Blood Cell 16.1 10^3/uL (4.4-10.8)
[2023-09-29 05:23] LABS: Albumin 3.6 g/dL (3.2-4.8); Alkaline Phosphatase 91 U/L (46-116); Anion Gap 13 (5-15); Aspartate Aminotransferase 23 U/L (13-40); BUN/Creatinine Ratio 10.7 (10.0-20.0); Calcium 9.1 mg/dL (8.5-10.1); Carbon Dioxide 27 mmol/L (20-30); Chloride 96 mmol/L (98-107); Glucose 130 mg/dL (74-106); Magnesium 2.4 mg/dL (1.6-2.6); Potassium 4.2 mmol/L (3.5-5.1); Sodium 136 mmol/L (136-145)
[2023-09-29 05:24] LABS: Bilirubin, Total 0.2 mg/dL (0.2-1.0); Total Protein 6.6 g/dL (5.7-8.2)
[2023-09-29 05:29] LABS: Alanine Aminotransferase < 9 U/L (7-40); Blood Urea Nitrogen 63 mg/dL (9-23)
[2023-09-29 07:37] LABS: Base Excess 2.4 mmol/L (-2.0-2.0)
[2023-09-29 08:06] LABS: Albumin 2.9 g/dL (2.9-4.4); Alpha-1-Globulin 0.3 g/dL (0.0-0.4); Alpha-2-Globulin 1.1 g/dL (0.4-1.0); Gamma Globulin 1.2 g/dL (0.4-1.8); Globulin Total 3.6 g/dL (2.2-3.9); Protein Total Serum 6.5 g/dL (6.0-8.5)
[2023-09-29 11:25] LABS: Base Excess 1.8 mmol/L (-2.0-2.0)
[2023-09-29] MEDS: APIXABAN 5 MG TAB PO SCH (22:31)
[2023-09-30] VITALS (63 sets, daily range): BP systolic 89–147; BP diastolic 26–51; PULSE 77–93; RESP 11–35; TEMP 97.6–99; O2SAT 88–100
[2023-09-30 03:52] LABS: Basophils # (auto) 0.1 10 ^3/uL (0-0.2); Basophils % (auto) 0.5 % (0.0-2.0); Eosinophils # (auto) 0.3 10 ^3/uL (0-0.8); Eosinophils % (auto) 2.8 % (0.0-7.0); Hematocrit 28.5 % (41.0-53.0); Hemoglobin 9.2 g/dL (13.5-17.5); Lymphocytes # (auto) 0.8 10 ^3/uL (0.4-5.4); Lymphocytes % (auto) 6.6 % (10.0-50.0); Mean Corpuscular Hemoglobin 29.5 pg (28.0-32.0); Mean Corpuscular Hgb Conc. 32.3 g/dL (32.0-36.0); Mean Corpuscular Volume 91.2 fL (80.0-100.0); Monocytes # (auto) 0.8 10 ^3/uL (0-1.3); Monocytes % (auto) 7.1 % (0.0-12.0); Neutrophils # (auto) 9.8 10 ^3/uL (1.6-8.6); Nucleated Red Blood Cells % 0.1 %; Red Blood Cells 3.13 10^6/uL (4.5-5.90); Red Cell Distribution Width 17.3 % (11.8-14.3); White Blood Cell 11.9 10^3/uL (4.4-10.8)
[2023-09-30 04:10] LABS: Albumin 3.6 g/dL (3.2-4.8); Alkaline Phosphatase 89 U/L (46-116); Anion Gap 16 (5-15); Aspartate Aminotransferase 15 U/L (13-40); Bilirubin, Total 0.2 mg/dL (0.2-1.0); Calcium 9.1 mg/dL (8.5-10.1); Carbon Dioxide 24 mmol/L (20-30); Chloride 96 mmol/L (98-107); Glucose 103 mg/dL (74-106); Magnesium 2.7 mg/dL (1.6-2.6); Potassium 4.4 mmol/L (3.5-5.1); Sodium 136 mmol/L (136-145); Total Protein 6.7 g/dL (5.7-8.2)
[2023-09-30 04:20] LABS: Alanine Aminotransferase < 9 U/L (7-40); Blood Urea Nitrogen 86 mg/dL (9-23)
[2023-09-30] MEDS: EPOETIN ALFA-EPBX 4,000 UNIT/ML VIAL SC ONE (21:19)
[2023-10-01] VITALS (54 sets, daily range): BP systolic 102–168; BP diastolic 31–58; PULSE 75–87; RESP 8–29; TEMP 98.1–99; O2SAT 90–100
[2023-10-01] MEDS ORDERED: cefTRIAXone 1GM/50ML D5W 50 ML IV SCH (01:00)
[2023-10-01 04:25] LABS: Basophils # (auto) 0 10 ^3/uL (0-0.2); Basophils % (auto) 0.5 % (0.0-2.0); Eosinophils # (auto) 0.2 10 ^3/uL (0-0.8); Hematocrit 26.6 % (41.0-53.0); Hemoglobin 8.6 g/dL (13.5-17.5); Lymphocytes # (auto) 0.6 10 ^3/uL (0.4-5.4); Lymphocytes % (auto) 6.8 % (10.0-50.0); Mean Corpuscular Hemoglobin 29.7 pg (28.0-32.0); Mean Corpuscular Hgb Conc. 32.5 g/dL (32.0-36.0); Mean Corpuscular Volume 91.6 fL (80.0-100.0); Monocytes % (auto) 10.3 % (0.0-12.0); Neutrophils # (auto) 7.5 10 ^3/uL (1.6-8.6); Neutrophils % (auto) 80.4 % (37.0-80.0); Nucleated Red Blood Cells % 0.1 %; Red Cell Distribution Width 17.4 % (11.8-14.3); White Blood Cell 9.3 10^3/uL (4.4-10.8)
[2023-10-01 04:32] LABS: Anion Gap 15 (5-15); Carbon Dioxide 25 mmol/L (20-30); Chloride 98 mmol/L (98-107); Potassium 4.8 mmol/L (3.5-5.1); Sodium 138 mmol/L (136-145)
[2023-10-01 04:34] LABS: Calcium 9.2 mg/dL (8.5-10.1)
[2023-10-01 04:38] LABS: BUN/Creatinine Ratio 10.2 (10.0-20.0); Glucose 126 mg/dL (74-106)
[2023-10-01 04:39] LABS: Blood Urea Nitrogen 76 mg/dL (9-23); Magnesium 2.6 mg/dL (1.6-2.6)
[2023-10-01] MEDS: methylPREDNISolone SOD SUCC 40 MG/ML VL IV SCH (09:43)
[2023-10-01] MEDS: IPRATROPIUM BROM 0.5 MG/2.5ML INH SOL NEB PRN (10:26)
[2023-10-01] MEDS: ALBUTEROL SULF 2.5 MG/0.5ML(0.5%) NEB SOLN NEB PRN (10:26)
[2023-10-01] MEDS: cefTRIAXone 1GM/50ML D5W 50 ML IV SCH (11:30)
[2023-10-01 14:19] LABS: Base Excess -1.3 mmol/L (-2.0-2.0)
[2023-10-01] MEDS: ACETYLCYSTEINE 20%(200MG/ML) SOL 4ML NEB SCH (15:49)
[2023-10-02] VITALS (65 sets, daily range): BP systolic 107–170; BP diastolic 31–63; PULSE 73–90; RESP 10–22; TEMP 97.6–98.6; O2SAT 95–100
[2023-10-02 04:10] LABS: Basophils # (auto) 0 10 ^3/uL (0-0.2); Eosinophils # (auto) 0 10 ^3/uL (0-0.8); Monocytes # (auto) 0.2 10 ^3/uL (0-1.3); Nucleated Red Blood Cells % 0.1 %
[2023-10-02 04:12] LABS: Basophils % (auto) 0.2 % (0.0-2.0); Eosinophils % (auto) 0.5 % (0.0-7.0); Hematocrit 25.8 % (41.0-53.0); Hemoglobin 8.3 g/dL (13.5-17.5); Lymphocytes # (auto) 0.3 10 ^3/uL (0.4-5.4); Lymphocytes % (auto) 3.8 % (10.0-50.0); Mean Corpuscular Hemoglobin 29.8 pg (28.0-32.0); Mean Corpuscular Hgb Conc. 32.4 g/dL (32.0-36.0); Mean Corpuscular Volume 91.9 fL (80.0-100.0); Monocytes % (auto) 3.1 % (0.0-12.0); Neutrophils # (auto) 6.4 10 ^3/uL (1.6-8.6); Neutrophils % (auto) 92.4 % (37.0-80.0); Red Cell Distribution Width 17.1 % (11.8-14.3); White Blood Cell 6.9 10^3/uL (4.4-10.8)
[2023-10-02 04:25] LABS: Albumin 3.5 g/dL (3.2-4.8); Alkaline Phosphatase 86 U/L (46-116); Anion Gap 19 (5-15); Aspartate Aminotransferase 27 U/L (13-40); BUN/Creatinine Ratio 10.5 (10.0-20.0); Calcium 8.8 mg/dL (8.7-10.4); Carbon Dioxide 21 mmol/L (20-30); Chloride 97 mmol/L (98-107); Glucose 164 mg/dL (74-106); Magnesium 2.9 mg/dL (1.6-2.6); Potassium 5.3 mmol/L (3.5-5.1); Sodium 137 mmol/L (136-145)
[2023-10-02 04:26] LABS: Bilirubin, Total < 0.2 mg/dL (0.2-1.0); Total Protein 6.7 g/dL (5.7-8.2)
[2023-10-02 04:34] LABS: Alanine Aminotransferase < 9 U/L (7-40)
[2023-10-02 04:35] LABS: Blood Urea Nitrogen 95 mg/dL (9-23)
[2023-10-02] MEDS: MORPHINE SULFATE INJ 2 MG/ml SYRG IV PRN (09:23)
[2023-10-02] MEDS: SODIUM CHL 0.9% 1000 ML BAG XX ONE (17:03)
[2023-10-02] MEDS ORDERED: MORPHINE SULFATE INJ 2 MG/ml SYRG IV PRN (19:30)
[2023-10-02] MEDS: EPOETIN ALFA-EPBX 10,000 UNIT/1ML VIAL SC ONE (21:05)
[2023-10-03] VITALS (64 sets, daily range): BP systolic 111–172; BP diastolic 28–71; PULSE 72–93; RESP 9–34; TEMP 98.3–99; O2SAT 88–100
[2023-10-03 04:11] LABS: Anion Gap 15 (5-15); Carbon Dioxide 24 mmol/L (20-30); Chloride 100 mmol/L (98-107); Potassium 4.3 mmol/L (3.5-5.1); Sodium 139 mmol/L (136-145)
[2023-10-03 04:12] LABS: Calcium 9.2 mg/dL (8.7-10.4)
[2023-10-03 04:17] LABS: BUN/Creatinine Ratio 8.8 (10.0-20.0); Glucose 140 mg/dL (74-106)
[2023-10-03 04:23] LABS: Blood Urea Nitrogen 44 mg/dL (9-23)
[2023-10-04] VITALS (50 sets, daily range): BP systolic 119–168; BP diastolic 37–69; PULSE 69–89; RESP 11–21; TEMP 98.1–98.9; O2SAT 91–100
[2023-10-04 03:37] LABS: Basophils # (auto) 0 10 ^3/uL (0-0.2); Basophils % (auto) 0.6 % (0.0-2.0); Eosinophils # (auto) 0 10 ^3/uL (0-0.8); Eosinophils % (auto) 0.4 % (0.0-7.0); Hematocrit 26.4 % (41.0-53.0); Hemoglobin 8.6 g/dL (13.5-17.5); Lymphocytes # (auto) 0.5 10 ^3/uL (0.4-5.4); Lymphocytes % (auto) 7.1 % (10.0-50.0); Mean Corpuscular Hemoglobin 29.9 pg (28.0-32.0); Mean Corpuscular Hgb Conc. 32.6 g/dL (32.0-36.0); Mean Corpuscular Volume 91.5 fL (80.0-100.0); Monocytes # (auto) 0.4 10 ^3/uL (0-1.3); Monocytes % (auto) 6.6 % (0.0-12.0); Neutrophils # (auto) 5.7 10 ^3/uL (1.6-8.6); Neutrophils % (auto) 85.3 % (37.0-80.0); Nucleated Red Blood Cells % 0.1 %; Red Blood Cells 2.89 10^6/uL (4.5-5.90); White Blood Cell 6.6 10^3/uL (4.4-10.8)
[2023-10-04 03:49] LABS: Albumin 3.8 g/dL (3.2-4.8); Alkaline Phosphatase 78 U/L (46-116); Anion Gap 13 (5-15); Aspartate Aminotransferase 17 U/L (13-40); BUN/Creatinine Ratio 9.7 (10.0-20.0); Bilirubin, Total 0.2 mg/dL (0.2-1.0); Carbon Dioxide 26 mmol/L (20-30); Chloride 99 mmol/L (98-107); Glucose 188 mg/dL (74-106); Magnesium 2.5 mg/dL (1.6-2.6); Potassium 4.6 mmol/L (3.5-5.1); Sodium 138 mmol/L (136-145)
[2023-10-04 03:50] LABS: Total Protein 6.9 g/dL (5.7-8.2)
[2023-10-04 03:58] LABS: Alanine Aminotransferase < 9 U/L (7-40); Blood Urea Nitrogen 69 mg/dL (9-23)
[2023-10-05] VITALS (33 sets, daily range): BP systolic 92–210; BP diastolic 40–72; PULSE 72–93; RESP 11–22; TEMP 97.5–98.5; O2SAT 97–100
[2023-10-05] MEDS: SODIUM CHL 0.9% 1000 ML BAG XX ONE (07:00)
[2023-10-05] MEDS: NOREPINEPHRINE 8 MG/250ML KIT 250 ML IV SCH (11:30)
[2023-10-05] MEDS: NOREPINEPHRINE 8 MG/250ML KIT 0 ML IV ONE (11:37)
[2023-10-05] MEDS: LACTULOSE 20Gm/30ML SOLN PO ONE (14:53)
[2023-10-05] MEDS: EPOETIN ALFA-EPBX 10,000 UNIT/1ML VIAL SC ONE (22:35)
[2023-10-05] MEDS: DOCUSATE ORAL LIQUID 100 MG/10 ML UD NG SCH (22:35)
[2023-10-06] VITALS (20 sets, daily range): BP systolic 95–150; BP diastolic 38–59; PULSE 65–83; RESP 12–20; TEMP 98.4–99.8; O2SAT 92–100
[2023-10-06 05:11] LABS: Hematocrit 27.9 % (41.0-53.0); Hemoglobin 9.1 g/dL (13.5-17.5); Mean Corpuscular Hemoglobin 30.1 pg (28.0-32.0); Mean Corpuscular Hgb Conc. 32.7 g/dL (32.0-36.0); Mean Corpuscular Volume 92.1 fL (80.0-100.0); Red Blood Cells 3.03 10^6/uL (4.5-5.90); Red Cell Distribution Width 16.9 % (11.8-14.3); White Blood Cell 6.5 10^3/uL (4.4-10.8)
[2023-10-06 05:14] LABS: Band Neutrophils % (manual) 0; Basophils % (manual) 0 (0.0-2.0); Blast Cells 0; Metamyelocytes % 0; Myelocytes % 0; Promyelocytes % 0; Reactive Lymphocytes 0
[2023-10-06 05:21] LABS: Anion Gap 10 (5-15); Carbon Dioxide 30 mmol/L (20-30); Chloride 103 mmol/L (98-107); Sodium 143 mmol/L (136-145)
[2023-10-06 05:22] LABS: Calcium 9.5 mg/dL (8.5-10.1)
[2023-10-06 05:26] LABS: Glucose 99 mg/dL (74-106)
[2023-10-06 05:27] LABS: BUN/Creatinine Ratio 7.6 (10.0-20.0); Blood Urea Nitrogen 47 mg/dL (9-23); Magnesium 2.5 mg/dL (1.6-2.6)
[2023-10-06 06:12] LABS: Eosinophils % (manual) 3 (0-7); Lymphocytes % (manual) 11 (10.0-50.0); Monocytes % (manual) 19 (0-12)
[2023-10-06 06:13] LABS: Platelet Estimate Adequate
[2023-10-06] MEDS ORDERED: MORPHINE SULFATE 4 MG/ML SYR/VIAL IV PRN (20:30)
[2023-10-07] VITALS (9 sets, daily range): BP systolic 95–147; BP diastolic 36–67; PULSE 65–76; RESP 16–20; TEMP 98.1–99.4; O2SAT 91–100
[2023-10-07] MEDS: SODIUM CHL 0.9% 1000 ML BAG XX ONE (07:00)
[2023-10-07] MEDS: EPOETIN ALFA-EPBX 10,000 UNIT/1ML VIAL SC ONE (21:00)
[2023-10-08] VITALS (7 sets, daily range): BP systolic 100–145; BP diastolic 48–91; PULSE 57–69; RESP 16–20; TEMP 97.8–98.6; O2SAT 94–100
[2023-10-08] MEDS ORDERED: CLOP75TA28 PO ×2 (07:11)
[2023-10-08] MEDS: IODIXANOL 320MG/ML 100ML BTL IV ONE (15:38)
[2023-10-08] MEDS: HEPARIN IN NS 1000Units/500mL 0 ML ONE (15:38)
[2023-10-08] MEDS: LIDOCAINE 2%HCL (LOCAL ANESTH.) INJ 20ML MDV ONE ×2 (15:38→18:11)
[2023-10-08] MEDS: MIDAZOLAM HCL 2MG/2ML 2ml VIAL (1mg/ml) ONE (15:45)
[2023-10-08] MEDS: fentaNYL CITRATE 100 MCG/2 ML VL ONE (15:45)
[2023-10-08] MEDS: HEPARIN SODIUM (PORCINE) 5000 UNITS/ML 1ML VIAL ONE ×2 (17:38→18:11)
[2023-10-08] MEDS: CATHFLO ACTIVASE (ALTEPLASE) 2 MG VIAL ONE (18:17)
[2023-10-09] VITALS (8 sets, daily range): BP systolic 130–164; BP diastolic 55–80; PULSE 56–66; RESP 18–20; TEMP 97.4–98.4; O2SAT 90–100
[2023-10-09] MEDS: Glucerna Carbsteady SHAKE Stawberry 8oz PO SCH (18:36)
[2023-10-10] VITALS (8 sets, daily range): BP systolic 117–160; BP diastolic 45–69; PULSE 56–60; RESP 16–18; TEMP 97.8–98.3; O2SAT 91–98
[2023-10-10 05:39] LABS: Eosinophils # (auto) 0.3 10 ^3/uL (0-0.8); Eosinophils % (auto) 3.9 % (0.0-7.0); Lymphocytes # (auto) 1.8 10 ^3/uL (0.4-5.4); Nucleated Red Blood Cells % 0.1 %
[2023-10-10 05:41] LABS: Basophils # (auto) 0 10 ^3/uL (0-0.2); Basophils % (auto) 0.6 % (0.0-2.0); Lymphocytes % (auto) 26.5 % (10.0-50.0); Mean Corpuscular Hemoglobin 30.6 pg (28.0-32.0); Mean Corpuscular Hgb Conc. 33.4 g/dL (32.0-36.0); Mean Corpuscular Volume 91.4 fL (80.0-100.0); Monocytes # (auto) 0.8 10 ^3/uL (0-1.3); Neutrophils # (auto) 3.8 10 ^3/uL (1.6-8.6); Red Blood Cells 2.63 10^6/uL (4.5-5.90); Red Cell Distribution Width 17.6 % (11.8-14.3); White Blood Cell 6.7 10^3/uL (4.4-10.8)
[2023-10-10 05:49] LABS: Chloride 100 mmol/L (98-107); Potassium 4.8 mmol/L (3.5-5.1); Sodium 139 mmol/L (136-145)
[2023-10-10 05:50] LABS: Anion Gap 16 (5-15); Carbon Dioxide 23 mmol/L (20-30)
[2023-10-10 05:51] LABS: Calcium 8.5 mg/dL (8.7-10.4)
[2023-10-10 05:55] LABS: BUN/Creatinine Ratio 7.7 (10.0-20.0); Glucose 102 mg/dL (74-106)
[2023-10-10 05:56] LABS: Magnesium 2.8 mg/dL (1.6-2.6)
[2023-10-10] MEDS: SODIUM CHL 0.9% 1000 ML BAG XX ONE (07:00)
[2023-10-10] MEDS: SODIUM ZIRCONIUM CYCL 10 GM PAK PO ONE (16:06)
[2023-10-10] MEDS: EPOETIN ALFA-EPBX 4,000 UNIT/ML VIAL SC ONE (21:00)
[2023-10-11] VITALS (8 sets, daily range): BP systolic 111–163; BP diastolic 57–97; PULSE 57–70; RESP 16–18; TEMP 97.8–98.7; O2SAT 94–98
[2023-10-11 07:53] LABS: Blood Urea Nitrogen 97 mg/dL (9-23)
[2023-10-11] MEDS: DOCUSATE ORAL LIQUID 100 MG/10 ML UD PO SCH (10:56)
[2023-10-11] MEDS: buPROPion HCL 75 MG TAB PO SCH (22:33)
[2023-10-11] MEDS: traZODone HCL 50 MG TAB PO SCH (22:34)
[2023-10-12] VITALS (12 sets, daily range): BP systolic 127–152; BP diastolic 59–82; PULSE 55–78; RESP 11–22; TEMP 97.1–98.4; O2SAT 94–100
[2023-10-12 06:33] LABS: Basophils # (auto) 0 10 ^3/uL (0-0.2); Eosinophils # (auto) 0.3 10 ^3/uL (0-0.8); Hemoglobin 8.3 g/dL (13.5-17.5); Lymphocytes # (auto) 1.9 10 ^3/uL (0.4-5.4); Monocytes # (auto) 0.6 10 ^3/uL (0-1.3); Neutrophils # (auto) 2.4 10 ^3/uL (1.6-8.6); White Blood Cell 5.3 10^3/uL (4.4-10.8)
[2023-10-12 06:35] LABS: Basophils % (auto) 0.9 % (0.0-2.0); Eosinophils % (auto) 5.1 % (0.0-7.0); Hematocrit 25.1 % (41.0-53.0); Lymphocytes % (auto) 36.8 % (10.0-50.0); Mean Corpuscular Hemoglobin 29.8 pg (28.0-32.0); Mean Corpuscular Hgb Conc. 32.9 g/dL (32.0-36.0); Mean Corpuscular Volume 90.8 fL (80.0-100.0); Monocytes % (auto) 11.1 % (0.0-12.0); Neutrophils % (auto) 46.1 % (37.0-80.0); Red Blood Cells 2.77 10^6/uL (4.5-5.90)
[2023-10-12 06:47] LABS: Calcium 8.4 mg/dL (8.5-10.1); Chloride 98 mmol/L (98-107); Potassium 4.7 mmol/L (3.5-5.1); Sodium 136 mmol/L (136-145)
[2023-10-12 06:48] LABS: Anion Gap 16 (5-15); Carbon Dioxide 22 mmol/L (20-30)
[2023-10-12 06:53] LABS: Glucose 91 mg/dL (74-106)
[2023-10-12 06:54] LABS: Magnesium 2.5 mg/dL (1.6-2.6)
[2023-10-12 06:56] LABS: Blood Urea Nitrogen 114 mg/dL (9-23)
[2023-10-12] MEDS: amLODIPine BESYLATE 5 MG TAB PO SCH (11:15)
[2023-10-12] MEDS: LIDOCAINE 2%HCL (LOCAL ANESTH.) INJ 10ml MDV ONE ×2 (11:25→11:28)
[2023-10-12] MEDS: HEPARIN SODIUM (PORCINE) 5000 UNITS/ML 1ML VIAL ONE (11:39)
[2023-10-12] MEDS: fentaNYL CITRATE 100 MCG/2 ML VL ONE (11:39)
[2023-10-12] MEDS: MIDAZOLAM HCL 2MG/2ML 2ml VIAL (1mg/ml) ONE (11:39)
[2023-10-12] MEDS: ceFAZolin 1GM/50ML 50 ML IV ONE (11:46)
[2023-10-13] VITALS (8 sets, daily range): BP systolic 117–146; BP diastolic 50–60; PULSE 60–68; RESP 16–18; TEMP 98.2–98.9; O2SAT 90–100
[2023-10-13 07:47] LABS: Chloride 102 mmol/L (98-107); Potassium 4.5 mmol/L (3.5-5.1); Sodium 138 mmol/L (136-145)
[2023-10-13 07:48] LABS: Anion Gap 6 (5-15); Calcium 8.9 mg/dL (8.5-10.1); Carbon Dioxide 30 mmol/L (20-30)
[2023-10-13 07:53] LABS: BUN/Creatinine Ratio 5.7 (10.0-20.0); Glucose 95 mg/dL (74-106)
[2023-10-13 07:54] LABS: Blood Urea Nitrogen 44 mg/dL (9-23); Magnesium 2.2 mg/dL (1.6-2.6)
[2023-10-13 07:58] LABS: Basophils # (auto) 0 10 ^3/uL (0-0.2); Basophils % (auto) 0.9 % (0.0-2.0); Eosinophils # (auto) 0.2 10 ^3/uL (0-0.8); Eosinophils % (auto) 4.2 % (0.0-7.0); Hematocrit 26.2 % (41.0-53.0); Hemoglobin 8.6 g/dL (13.5-17.5); Lymphocytes # (auto) 1.4 10 ^3/uL (0.4-5.4); Lymphocytes % (auto) 29.8 % (10.0-50.0); Mean Corpuscular Hemoglobin 29.9 pg (28.0-32.0); Mean Corpuscular Hgb Conc. 32.9 g/dL (32.0-36.0); Mean Corpuscular Volume 90.9 fL (80.0-100.0); Monocytes # (auto) 0.5 10 ^3/uL (0-1.3); Monocytes % (auto) 11.3 % (0.0-12.0); Neutrophils # (auto) 2.5 10 ^3/uL (1.6-8.6); Neutrophils % (auto) 53.8 % (37.0-80.0); Nucleated Red Blood Cells % 0.1 %; Red Blood Cells 2.88 10^6/uL (4.5-5.90); Red Cell Distribution Width 18.4 % (11.8-14.3); White Blood Cell 4.7 10^3/uL (4.4-10.8)
[2023-10-13] MEDS: DOCUSATE SOD 100 MG CAP PO ONE (17:32)
[2023-10-13] MEDS: LACTULOSE 20Gm/30ML SOLN PO ONE (17:32)
[2023-10-13] MEDS: DOCUSATE SOD 100 MG CAP PO SCH (22:12)
[2023-10-14] VITALS (7 sets, daily range): BP systolic 129–139; BP diastolic 59–72; PULSE 56–71; RESP 12–18; TEMP 97.7–98.5; O2SAT 93–95
[2023-10-14] MEDS: SODIUM CHL 0.9% 1000 ML BAG XX ONE ×2 (07:00→11:45)
[2023-10-14] MEDS: EPOETIN ALFA-EPBX 10,000 UNIT/1ML VIAL SC ONE (21:34)
[2023-10-15] VITALS (9 sets, daily range): BP systolic 125–150; BP diastolic 52–66; PULSE 60–69; RESP 14–18; TEMP 97.5–98.7; O2SAT 92–98
[2023-10-15] MEDS: HYDROcodone-ACET 5/325MG TAB PO PRN (06:19)
[2023-10-16] VITALS (8 sets, daily range): BP systolic 115–162; BP diastolic 55–84; PULSE 60–67; RESP 15–20; TEMP 97.7–98.2; O2SAT 92–98
[2023-10-16] MEDS: SODIUM CHL 0.9% 1000 ML BAG XX ONE (07:00)
[2023-10-16] MEDS: EPOETIN ALFA-EPBX 4,000 UNIT/ML VIAL SC ONE (21:55)
[2023-10-17] VITALS (7 sets, daily range): BP systolic 124–154; BP diastolic 49–74; PULSE 56–69; RESP 17–20; TEMP 97.7–98.3; O2SAT 92–100
[2023-10-18] VITALS (9 sets, daily range): BP systolic 116–146; BP diastolic 41–58; PULSE 58–70; RESP 15–19; TEMP 97.3–98.3; O2SAT 89–100
[2023-10-18] MEDS: SODIUM CHL 0.9% 1000 ML BAG XX ONE (07:00)
[2023-10-18] MEDS: EPOETIN ALFA-EPBX 10,000 UNIT/1ML VIAL SC ONE (20:29)
[2023-10-19] VITALS (8 sets, daily range): BP systolic 108–159; BP diastolic 59–80; PULSE 58–68; RESP 16–19; TEMP 97.6–98.8; O2SAT 96–100
[2023-10-19] MEDS: CLOPIDOGREL BISULFATE 75 MG TAB PO SCH (12:59)
[2023-10-20 00:27] VITALS: BP 117/66; PULSE 66; RESP 18; O2SAT 98
[2023-10-20 04:47] VITALS: BP 107/62; PULSE 55; RESP 16; TEMP 97.7; O2SAT 93
[2023-10-20 05:37] LABS: Basophils # (auto) 0 10 ^3/uL (0-0.2); Basophils % (auto) 0.9 % (0.0-2.0); Eosinophils # (auto) 0.2 10 ^3/uL (0-0.8); Lymphocytes # (auto) 1.7 10 ^3/uL (0.4-5.4); Monocytes # (auto) 0.6 10 ^3/uL (0-1.3)
[2023-10-20 05:41] LABS: Eosinophils % (auto) 4.5 % (0.0-7.0); Hematocrit 23.3 % (41.0-53.0); Hemoglobin 7.7 g/dL (13.5-17.5); Lymphocytes % (auto) 37.5 % (10.0-50.0); Mean Corpuscular Hemoglobin 30.4 pg (28.0-32.0); Mean Corpuscular Hgb Conc. 33.3 g/dL (32.0-36.0); Mean Corpuscular Volume 91.5 fL (80.0-100.0); Monocytes % (auto) 12.7 % (0.0-12.0); Neutrophils % (auto) 44.4 % (37.0-80.0); Red Blood Cells 2.54 10^6/uL (4.5-5.90); Red Cell Distribution Width 16.9 % (11.8-14.3); White Blood Cell 4.6 10^3/uL (4.4-10.8)
[2023-10-20 05:45] LABS: Chloride 96 mmol/L (98-107); Potassium 5.3 mmol/L (3.5-5.1)
[2023-10-20 05:46] LABS: Anion Gap 7 (5-15); Carbon Dioxide 27 mmol/L (20-30)
[2023-10-20 05:51] LABS: BUN/Creatinine Ratio 4.3 (10.0-20.0); Blood Urea Nitrogen 25 mg/dL (9-23); Glucose 91 mg/dL (74-106)
[2023-10-20 05:52] LABS: Magnesium 2.1 mg/dL (1.6-2.6)
[2023-10-20 06:07] LABS: Sodium 130 mmol/L (136-145)
[2023-10-20] MEDS: SODIUM CHL 0.9% 1000 ML BAG XX ONE (07:21)
[2023-10-20 08:00] VITALS: PULSE 62
[2023-10-20 09:00] VITALS: BP 153/69; PULSE 69; RESP 17; TEMP 98.2; O2SAT 98
[2023-10-20 13:00] VITALS: BP 144/53; PULSE 66; RESP 18; TEMP 97.6; O2SAT 92
[2023-10-20 17:00] VITALS: BP 137/63; PULSE 64; RESP 17; TEMP 97.7; O2SAT 96
[2023-10-20] MEDS ORDERED: EPOETIN ALFA-EPBX 4,000 UNIT/ML VIAL SC ONE (21:00)
[2023-10-21 10:08] LABS: Hepatitis B Core IgM Negative
[2023-10-21 10:52] LABS: Hepatitis C Antibody Reactive (Negative)
== END 2023-10-20 18:12 | DRG 228 ==
LOC: ER 12:12 → EDBD 12:12 → TELE 23:25 → ICU WEST 09-15 17:13 → DOU IN ICU 10-04 18:01 → TELE-WESTW 10-06 23:03
PROVIDERS: ADMIT Internal Medicine Geriatric Medicine; ATTEND Internal Medicine Geriatric Medicine
PROC: 06HY33Z Insertion of Infusion Device into Lower Vein, Percutaneous Approach (ICD-10-PCS; 2023-09-14)
PROC: 0BH17EZ Insertion of Endotracheal Airway into Trachea, Via Natural or Artificial Opening (ICD-10-PCS; 2023-09-14)
PROC: 5A1955Z Respiratory Ventilation, Greater than 96 Consecutive Hours (ICD-10-PCS; 2023-09-14)
PROC: 5A12012 Performance of Cardiac Output, Single, Manual (ICD-10-PCS; 2023-09-14)
PROC: 5A1D70Z Performance of Urinary Filtration, Intermittent, Less than 6 Hours Per Day (ICD-10-PCS; 2023-09-15)
PROC: 5A1223Z Performance of Cardiac Pacing, Continuous (ICD-10-PCS; 2023-09-15)
PROC: 5A1D70Z Performance of Urinary Filtration, Intermittent, Less than 6 Hours Per Day (ICD-10-PCS; 2023-09-16)
PROC: 30233N1 Transfusion of Nonautologous Red Blood Cells into Peripheral Vein, Percutaneous Approach (ICD-10-PCS; 2023-09-16)
PROC: 5A1D70Z Performance of Urinary Filtration, Intermittent, Less than 6 Hours Per Day (ICD-10-PCS; 2023-09-17)
PROC: 5A1D70Z Performance of Urinary Filtration, Intermittent, Less than 6 Hours Per Day (ICD-10-PCS; 2023-09-19)
PROC: 5A1D70Z Performance of Urinary Filtration, Intermittent, Less than 6 Hours Per Day (ICD-10-PCS; 2023-09-20)
PROC: 02HK3NZ Insertion of Intracardiac Pacemaker into Right Ventricle, Percutaneous Approach (ICD-10-PCS; 2023-09-22)
PROC: 5A1D70Z Performance of Urinary Filtration, Intermittent, Less than 6 Hours Per Day (ICD-10-PCS; 2023-09-23)
PROC: 5A1D70Z Performance of Urinary Filtration, Intermittent, Less than 6 Hours Per Day (ICD-10-PCS; 2023-09-25)
PROC: 02HV33Z Insertion of Infusion Device into Superior Vena Cava, Percutaneous Approach (ICD-10-PCS; 2023-09-26)
PROC: B548ZZA Ultrasonography of Superior Vena Cava, Guidance (ICD-10-PCS; 2023-09-26)
PROC: 5A1D70Z Performance of Urinary Filtration, Intermittent, Less than 6 Hours Per Day (ICD-10-PCS; 2023-09-27)
PROC: 5A1D70Z Performance of Urinary Filtration, Intermittent, Less than 6 Hours Per Day (ICD-10-PCS; 2023-09-28)
PROC: 5A0935A Assistance with Respiratory Ventilation, Less than 24 Consecutive Hours, High Flow/Velocity Cannula (ICD-10-PCS; principal; 2023-09-29)
PROC: 5A1935Z Respiratory Ventilation, Less than 24 Consecutive Hours (ICD-10-PCS; 2023-09-29)
PROC: 5A1D70Z Performance of Urinary Filtration, Intermittent, Less than 6 Hours Per Day (ICD-10-PCS; 2023-09-30)
PROC: 5A1D70Z Performance of Urinary Filtration, Intermittent, Less than 6 Hours Per Day (ICD-10-PCS; 2023-10-02)
PROC: 5A1D70Z Performance of Urinary Filtration, Intermittent, Less than 6 Hours Per Day (ICD-10-PCS; 2023-10-05)
PROC: 5A1D70Z Performance of Urinary Filtration, Intermittent, Less than 6 Hours Per Day (ICD-10-PCS; 2023-10-07)
PROC: 03C83ZZ Extirpation of Matter from Left Brachial Artery, Percutaneous Approach (ICD-10-PCS; 2023-10-08)
PROC: 03783ZZ Dilation of Left Brachial Artery, Percutaneous Approach (ICD-10-PCS; 2023-10-08)
PROC: 3E03317 Introduction of Other Thrombolytic into Peripheral Vein, Percutaneous Approach (ICD-10-PCS; 2023-10-08)
PROC: 5A1D70Z Performance of Urinary Filtration, Intermittent, Less than 6 Hours Per Day (ICD-10-PCS; 2023-10-12)
PROC: 0JH63XZ Insertion of Tunneled Vascular Access Device into Chest Subcutaneous Tissue and Fascia, Percutaneous Approach (ICD-10-PCS; 2023-10-12)
PROC: 02H633Z Insertion of Infusion Device into Right Atrium, Percutaneous Approach (ICD-10-PCS; 2023-10-12)
PROC: B5181ZA Fluoroscopy of Superior Vena Cava using Low Osmolar Contrast, Guidance (ICD-10-PCS; 2023-10-12)
PROC: B548ZZA Ultrasonography of Superior Vena Cava, Guidance (ICD-10-PCS; 2023-10-12)
PROC: 5A1D70Z Performance of Urinary Filtration, Intermittent, Less than 6 Hours Per Day (ICD-10-PCS; 2023-10-14)
PROC: 5A1D70Z Performance of Urinary Filtration, Intermittent, Less than 6 Hours Per Day (ICD-10-PCS; 2023-10-16)
PROC: 5A1D70Z Performance of Urinary Filtration, Intermittent, Less than 6 Hours Per Day (ICD-10-PCS; 2023-10-18)
PROC: 5A1D70Z Performance of Urinary Filtration, Intermittent, Less than 6 Hours Per Day (ICD-10-PCS; 2023-10-20)
DX: I21.4 Non-ST elevation (NSTEMI) myocardial infarction (principal); A41.89 Other specified sepsis; I46.9 Cardiac arrest, cause unspecified; G93.41 Metabolic encephalopathy; R57.0 Cardiogenic shock; N18.6 End stage renal disease; J96.01 Acute respiratory failure with hypoxia; R65.21 Severe sepsis with septic shock; J18.9 Pneumonia, unspecified organism; I50.23 Acute on chronic systolic (congestive) heart failure; N17.9 Acute kidney failure, unspecified; E87.1 Hypo-osmolality and hyponatremia; G93.1 Anoxic brain damage, not elsewhere classified; E87.4 Mixed disorder of acid-base balance; I44.2 Atrioventricular block, complete; J44.0 Chronic obstructive pulmonary disease with (acute) lower respiratory infection; I13.2 Hypertensive heart and chronic kidney disease with heart failure and with stage 5 chronic kidney disease, or end stage renal disease; I69.351 Hemiplegia and hemiparesis following cerebral infarction affecting right dominant side; I82.C11 Acute embolism and thrombosis of right internal jugular vein; I82.611 Acute embolism and thrombosis of superficial veins of right upper extremity; T82.868A Thrombosis due to vascular prosthetic devices, implants and grafts, initial encounter; E11.22 Type 2 diabetes mellitus with diabetic chronic kidney disease; D63.1 Anemia in chronic kidney disease; E87.5 Hyperkalemia; I49.5 Sick sinus syndrome; I25.10 Atherosclerotic heart disease of native coronary artery without angina pectoris; F10.10 Alcohol abuse, uncomplicated; F17.200 Nicotine dependence, unspecified, uncomplicated; M81.0 Age-related osteoporosis without current pathological fracture; N40.0 Benign prostatic hyperplasia without lower urinary tract symptoms; E78.5 Hyperlipidemia, unspecified; D69.6 Thrombocytopenia, unspecified; T78.3XXA Angioneurotic edema, initial encounter; T46.4X5A Adverse effect of angiotensin-converting-enzyme inhibitors, initial encounter; Z99.2 Dependence on renal dialysis; Z95.5 Presence of coronary angioplasty implant and graft; Z82.49 Family history of ischemic heart disease and other diseases of the circulatory system; Z82.3 Family history of stroke; Z79.899 Other long term (current) drug therapy; Z79.84 Long term (current) use of oral hypoglycemic drugs; Z83.3 Family history of diabetes mellitus; Z82.0 Family history of epilepsy and other diseases of the nervous system; Z79.82 Long term (current) use of aspirin; Z79.02 Long term (current) use of antithrombotics/antiplatelets; Z79.01 Long term (current) use of anticoagulants; Y84.1 Kidney dialysis as the cause of abnormal reaction of the patient, or of later complication, without mention of misadventure at the time of the procedure; Y92.238 Other place in hospital as the place of occurrence of the external cause; Y90.9 Presence of alcohol in blood, level not specified
CPT/HCPCS: 33207; 33210; 36415; 36558; 36600; 36905; 70450; 71045; 76000; 76937; 77001; 80048; 80053; 80061; 80202; 82270; 82728; 82805; 82962; 83036; 83540; 83550; 83605; 83615; 83735; 84132; 84155; 84165; 84443; 84484; 85007; 85014; 85018; 85025; 85027; 85045; 85610; 85730; 86705; 86706; 86803; 86850; 86880; 86900; 86901; 86920; 87040; 87070; 87077; 87081; 87186; 87205; 87340; 90935; 92610; 93005; 93306; 93971; 94002; 94003; 94640; 94668; 95819; 96365; 96375; 97110; 97116; 97163; 97530; 99152; A4565; C1751; C1769; C1894; C9113; G0378; J0171; J1642; J1815; J2001; J2250; J2405; J2704; J7060; P9047; Q9967

== ENCOUNTER 2023-10-27 19:22 | Inpatient (IN) | payer OTHER, MEDICAID ==
[~2023-10-27] VITALS: Ht 165.1 cm; Wt 67.8 kg
[~2023-10-27 19:22] MED LIST changes: +ALBU108A5 INH; +ASPI81CH59 PO; +ATOR80TA PO; +BENZ100C97 PO; +BUPR150T23 PO; +CLON0.2D6 TOP; +CLOP75TA28 PO; +DULO1CAP5 PO; +HYDR-4902 PO; +HYDR50CA2 PO; +HYDR50TA47 PO; +MIN25T PO; +NALO4SPR3 EACHNOSTRI; +NIFE1TAB31 PO; +NITR0.4S29 SL; +OMEP20TA PO; +RISP0.5T45 PO; +TICA90TA PO
[2023-10-27 19:40] VITALS: PULSE 64; RESP 21; O2SAT 99
[2023-10-27 20:59] LABS: Basophils # (auto) 0 10 ^3/uL (0-0.2); Basophils % (auto) 0.4 % (0.0-2.0); Eosinophils # (auto) 0 10 ^3/uL (0-0.8); Monocytes # (auto) 0.4 10 ^3/uL (0-1.3); Neutrophils # (auto) 2.4 10 ^3/uL (1.6-8.6); White Blood Cell 3.8 10^3/uL (4.4-10.8)
[2023-10-27 21:00] LABS: Eosinophils % (auto) 0.4 % (0.0-7.0); Hematocrit 20.6 % (41.0-53.0); Lymphocytes % (auto) 27.3 % (10.0-50.0); Mean Corpuscular Hemoglobin 29.9 pg (28.0-32.0); Mean Corpuscular Hgb Conc. 32.5 g/dL (32.0-36.0); Monocytes % (auto) 9.3 % (0.0-12.0); Neutrophils % (auto) 62.6 % (37.0-80.0); Nucleated Red Blood Cells % 0.2 %; Red Blood Cells 2.24 10^6/uL (4.5-5.90); Red Cell Distribution Width 18.6 % (11.8-14.3)
[2023-10-27 21:16] LABS: Alanine Aminotransferase 18 U/L (7-40); Albumin 3.8 g/dL (3.2-4.8); Anion Gap 9 (5-15); Aspartate Aminotransferase 81 U/L (13-40); BUN/Creatinine Ratio 5.1 (10.0-20.0); Blood Urea Nitrogen 29 mg/dL (9-23); Calcium 8.4 mg/dL (8.5-10.1); Carbon Dioxide 28 mmol/L (20-30); Chloride 97 mmol/L (98-107); Glucose 104 mg/dL (74-106); Potassium 3.5 mmol/L (3.5-5.1); Sodium 134 mmol/L (136-145)
[2023-10-27 21:17] LABS: Bilirubin, Total 0.2 mg/dL (0.2-1.0); Total Protein 6.7 g/dL (5.7-8.2)
[2023-10-27 21:20] LABS: Alkaline Phosphatase 132 U/L (46-116)
[2023-10-27 21:24] LABS: Hemoglobin 6.7 g/dL (13.5-17.5)
[2023-10-27] MEDS: cefTRIAXone 1GM/50ML D5W 50 ML IV ONE (22:39)
[2023-10-27] MEDS: ASPirin 81 mg TAB PO ONE (22:39)
[2023-10-27] MEDS: SODIUM CHLORIDE 0.9% 1,000 ML IV ONE (22:41)
[2023-10-27] MEDS: NITROGLYCERIN 2% OINT 1GM PKG TD ONE (22:41)
[2023-10-28] VITALS (13 sets, daily range): BP systolic 104–160; BP diastolic 38–74; PULSE 60–74; RESP 16–23; TEMP 98.3–102.4; O2SAT 93–99
[2023-10-28] MEDS: PIPERACILLIN-TAZOB 3.375GM 100 ML IV ONE (00:22)
[2023-10-28] MEDS: ENOXAPARIN SOD 100 MG/1 ML SYRINGE SC ONE (03:54)
[2023-10-28] MEDS ORDERED: NITROGLYCERIN 0.4 MG SL TAB SL PRN (06:45)
[2023-10-28] MEDS ORDERED: MORPHINE SULFATE INJ 2 MG/ml SYRG IV PRN (06:45)
[2023-10-28] MEDS ORDERED: DEXTROSE (50%) 50ML SYRG IV PRN (06:45)
[2023-10-28] MEDS: ACCU-CHEK COMFORT CURVE STRIP VI SCH (07:00)
[2023-10-28] MEDS: InsuLIN REG 1unit/0.01ml Soln (100units/ml) SC SCH (07:00)
[2023-10-28] MEDS: ASPirin 81 mg TAB PO SCH (10:00)
[2023-10-28] MEDS: SODIUM CHL 0.9% 1000 ML BAG XX ONE (11:00)
[2023-10-28] MEDS ORDERED: APIX5TAB PO ×2 (11:54)
[2023-10-28] MEDS ORDERED: AML5T PO ×2 (11:54)
[2023-10-28] MEDS ORDERED: PANT40TA2 PO ×2 (11:54)
[2023-10-28] MEDS ORDERED: BUPR75TA98 PO ×2 (11:54)
[2023-10-28] MEDS ORDERED: METO25TA93 PO (11:54)
[2023-10-28] MEDS ORDERED: ATOR40TA52 PO ×2 (11:54)
[2023-10-28] MEDS ORDERED: MIN25T PO (11:54)
[2023-10-28] MEDS ORDERED: DOCU-94 PO ×2 (11:54)
[2023-10-28 12:05] LABS: Rapid Influenza A Negative (Negative); Rapid Influenza B Negative (Negative)
[2023-10-28 12:06] LABS: COVID19 ANTIGEN SOFIA FIA NEGATIVE (NEGATIVE)
[2023-10-28 14:21] LABS: Basophils # (auto) 0 10 ^3/uL (0-0.2); Basophils % (auto) 0.6 % (0.0-2.0); Eosinophils # (auto) 0.1 10 ^3/uL (0-0.8); Monocytes # (auto) 0.2 10 ^3/uL (0-1.3); White Blood Cell 3.8 10^3/uL (4.4-10.8)
[2023-10-28 14:23] LABS: Eosinophils % (auto) 1.6 % (0.0-7.0); Hematocrit 23.3 % (41.0-53.0); Hemoglobin 7.7 g/dL (13.5-17.5); Lymphocytes % (auto) 27.5 % (10.0-50.0); Mean Corpuscular Hgb Conc. 33.3 g/dL (32.0-36.0); Mean Corpuscular Volume 90.2 fL (80.0-100.0); Monocytes % (auto) 6.5 % (0.0-12.0); Neutrophils # (auto) 2.4 10 ^3/uL (1.6-8.6); Neutrophils % (auto) 63.8 % (37.0-80.0); Nucleated Red Blood Cells % 0.1 %; Red Blood Cells 2.58 10^6/uL (4.5-5.90); Red Cell Distribution Width 17.5 % (11.8-14.3)
[2023-10-28 14:37] LABS: INR 1.28 (0.9-1.15); Partial Thromboplastin Time 57.1 SEC (24.5-34.5); Prothrombin Time 13.3 sec (9.3-11.8)
[2023-10-28] MEDS: HEPARIN DRIP/D5W 100UNITS/ML 250 ML IV SCH (16:19)
[2023-10-28] MEDS: ALBUTEROL SULF 2.5 MG/0.5ML(0.5%) NEB SOLN NEB PRN (19:03)
[2023-10-28] MEDS: ALBUTEROL SULF 2.5 MG/0.5ML(0.5%) NEB SOLN ONE (19:03)
[2023-10-28] MEDS: ATORVASTATIN 20 MG TAB PO SCH (22:13)
[2023-10-28] MEDS: EPOETIN ALFA-EPBX 10,000 UNIT/1ML VIAL SC ONE (22:14)
[2023-10-28] MEDS: cefTRIAXone 1GM/50ML D5W 50 ML IV SCH (22:15)
[2023-10-28] MEDS: AZITHROMYCIN 500MG/ 250ML 250 ML IV SCH (22:16)
[2023-10-28 22:29] LABS: INR 1.25 (0.9-1.15)
[2023-10-29] VITALS (14 sets, daily range): BP systolic 105–154; BP diastolic 51–70; PULSE 60–78; RESP 17–21; TEMP 97.4–98.7; O2SAT 90–99
[2023-10-29 07:02] LABS: Basophils # (auto) 0 10 ^3/uL (0-0.2); Basophils % (auto) 0.3 % (0.0-2.0); Eosinophils # (auto) 0.1 10 ^3/uL (0-0.8); Eosinophils % (auto) 1.6 % (0.0-7.0); Hemoglobin 7.9 g/dL (13.5-17.5); Lymphocytes # (auto) 1.1 10 ^3/uL (0.4-5.4); Lymphocytes % (auto) 36.5 % (10.0-50.0); Mean Corpuscular Hemoglobin 29.7 pg (28.0-32.0); Mean Corpuscular Hgb Conc. 32.9 g/dL (32.0-36.0); Mean Corpuscular Volume 90.1 fL (80.0-100.0); Monocytes # (auto) 0.3 10 ^3/uL (0-1.3); Monocytes % (auto) 9.9 % (0.0-12.0); Neutrophils # (auto) 1.6 10 ^3/uL (1.6-8.6); Neutrophils % (auto) 51.7 % (37.0-80.0); Red Blood Cells 2.66 10^6/uL (4.5-5.90); White Blood Cell 3.1 10^3/uL (4.4-10.8)
[2023-10-29 07:16] LABS: Alanine Aminotransferase 56 U/L (7-40); Alkaline Phosphatase 97 U/L (46-116); Anion Gap 5 (5-15); Aspartate Aminotransferase 182 U/L (13-40); BUN/Creatinine Ratio 4.9 (10.0-20.0); Blood Urea Nitrogen 22 mg/dL (9-23); Calcium 8.2 mg/dL (8.5-10.1); Carbon Dioxide 31 mmol/L (20-30); Chloride 98 mmol/L (98-107); Glucose 89 mg/dL (74-106); Magnesium 1.9 mg/dL (1.6-2.6); Potassium 3.8 mmol/L (3.5-5.1); Sodium 134 mmol/L (136-145)
[2023-10-29 07:17] LABS: Albumin 3.6 g/dL (3.2-4.8); Bilirubin, Total 0.2 mg/dL (0.2-1.0); Total Protein 6.3 g/dL (5.7-8.2)
[2023-10-29 07:43] LABS: INR 1.15 (0.9-1.15); Partial Thromboplastin Time 40.1 SEC (24.5-34.5); Prothrombin Time 12.1 sec (9.3-11.8)
[2023-10-29] MEDS: HEPARIN DRIP/D5W 100UNITS/ML 250 ML IV SCH ×3 (08:47→17:28)
[2023-10-29 16:24] LABS: INR 1.15 (0.9-1.15); Prothrombin Time 12.1 sec (9.3-11.8)
[2023-10-29 16:27] LABS: Partial Thromboplastin Time 84.6 SEC (24.5-34.5)
[2023-10-29] MEDS: ALPRAZolam 0.25 MG TAB PO PRN (18:36)
[2023-10-29] MEDS: IPRATROPIUM BROM 0.5 MG/2.5ML INH SOL NEB SCH (19:33)
[2023-10-29] MEDS: ALBUTEROL SULF 2.5 MG/0.5ML(0.5%) NEB SOLN NEB SCH (19:33)
[2023-10-30] VITALS (26 sets, daily range): BP systolic 128–170; BP diastolic 61–81; PULSE 56–86; RESP 16–22; TEMP 96.2–98.1; O2SAT 84–99
[2023-10-30 00:29] LABS: INR 1.08 (0.9-1.15); Partial Thromboplastin Time 40.8 SEC (24.5-34.5); Prothrombin Time 11.4 sec (9.3-11.8)
[2023-10-30] MEDS: HEPARIN DRIP/D5W 100UNITS/ML 250 ML IV SCH ×2 (01:28→21:15)
[2023-10-30 06:45] LABS: Alanine Aminotransferase 60 U/L (7-40); Albumin 3.7 g/dL (3.2-4.8); Alkaline Phosphatase 92 U/L (46-116); Anion Gap 11 (5-15); Aspartate Aminotransferase 152 U/L (13-40); BUN/Creatinine Ratio 5.3 (10.0-20.0); Blood Urea Nitrogen 29 mg/dL (9-23); Calcium 8.6 mg/dL (8.7-10.4); Carbon Dioxide 26 mmol/L (20-30); Chloride 96 mmol/L (98-107); Glucose 101 mg/dL (74-106); Potassium 3.8 mmol/L (3.5-5.1); Sodium 133 mmol/L (136-145)
[2023-10-30 06:46] LABS: Bilirubin, Total 0.2 mg/dL (0.2-1.0); Total Protein 6.9 g/dL (5.7-8.2)
[2023-10-30] MEDS: SODIUM CHL 0.9% 1000 ML BAG XX ONE (07:00)
[2023-10-30 07:43] LABS: INR 1.08 (0.9-1.15); Partial Thromboplastin Time 64.3 SEC (24.5-34.5); Prothrombin Time 11.4 sec (9.3-11.8)
[2023-10-30 07:54] LABS: Basophils # (auto) 0 10 ^3/uL (0-0.2); Basophils % (auto) 0.5 % (0.0-2.0); Eosinophils # (auto) 0.1 10 ^3/uL (0-0.8); Hematocrit 24.6 % (41.0-53.0); Hemoglobin 8.3 g/dL (13.5-17.5); Lymphocytes # (auto) 0.9 10 ^3/uL (0.4-5.4); Mean Corpuscular Hemoglobin 30.5 pg (28.0-32.0); Mean Corpuscular Volume 89.8 fL (80.0-100.0); Monocytes # (auto) 0.4 10 ^3/uL (0-1.3); Monocytes % (auto) 11.8 % (0.0-12.0); Neutrophils # (auto) 1.7 10 ^3/uL (1.6-8.6); Neutrophils % (auto) 54.7 % (37.0-80.0); Red Blood Cells 2.74 10^6/uL (4.5-5.90); Red Cell Distribution Width 17.7 % (11.8-14.3); White Blood Cell 3.1 10^3/uL (4.4-10.8)
[2023-10-30] MEDS ORDERED: ACETAMINOPHEN 325 MG TAB PO PRN (09:30)
[2023-10-30] MEDS: HYDROcodone-ACET 5/325MG TAB PO PRN (09:46)
[2023-10-30] MEDS: LACTULOSE 20Gm/30ML SOLN PO ONE (09:46)
[2023-10-30] MEDS: DOCUSATE SOD 100 MG CAP PO SCH (09:46)
[2023-10-30] MEDS: HEPARIN 1,000 UNITS/ml 1ML VIAL IV ONE ×3 (11:30)
[2023-10-30 13:29] LABS: INR 1.07 (0.9-1.15); Partial Thromboplastin Time 55.5 SEC (24.5-34.5); Prothrombin Time 11.3 sec (9.3-11.8)
[2023-10-30 20:43] LABS: INR 1.06 (0.9-1.15); Partial Thromboplastin Time 33.1 SEC (24.5-34.5); Prothrombin Time 11.2 sec (9.3-11.8)
[2023-10-30] MEDS: EPOETIN ALFA-EPBX 10,000 UNIT/1ML VIAL SC ONE (21:21)
[2023-10-30] MEDS: HEPARIN SODIUM (PORCINE) 5000 UNITS/ML 1ML VIAL IV ONE (22:00)
[2023-10-31] VITALS (21 sets, daily range): BP systolic 119–175; BP diastolic 64–84; PULSE 60–93; RESP 18–99; TEMP 97.6–98.7; O2SAT 20–100
[2023-10-31 04:02] LABS: Basophils # (auto) 0 10 ^3/uL (0-0.2); Basophils % (auto) 0.3 % (0.0-2.0); Eosinophils # (auto) 0.1 10 ^3/uL (0-0.8); Eosinophils % (auto) 3.6 % (0.0-7.0); Hematocrit 31.1 % (41.0-53.0); Hemoglobin 10.7 g/dL (13.5-17.5); Lymphocytes # (auto) 0.9 10 ^3/uL (0.4-5.4); Lymphocytes % (auto) 28.5 % (10.0-50.0); Mean Corpuscular Hgb Conc. 34.4 g/dL (32.0-36.0); Mean Corpuscular Volume 87.2 fL (80.0-100.0); Monocytes # (auto) 0.4 10 ^3/uL (0-1.3); Monocytes % (auto) 11.2 % (0.0-12.0); Neutrophils # (auto) 1.8 10 ^3/uL (1.6-8.6); Neutrophils % (auto) 56.4 % (37.0-80.0); Nucleated Red Blood Cells % 0.1 %; Red Blood Cells 3.57 10^6/uL (4.5-5.90); Red Cell Distribution Width 18.3 % (11.8-14.3); White Blood Cell 3.2 10^3/uL (4.4-10.8)
[2023-10-31 04:18] LABS: Alanine Aminotransferase 51 U/L (7-40); Alkaline Phosphatase 90 U/L (46-116); Calcium 8.6 mg/dL (8.7-10.4); Carbon Dioxide 29 mmol/L (20-30); Chloride 98 mmol/L (98-107); Glucose 79 mg/dL (74-106); Magnesium 1.8 mg/dL (1.6-2.6)
[2023-10-31 04:19] LABS: Albumin 3.7 g/dL (3.2-4.8); Anion Gap 8 (5-15); Aspartate Aminotransferase 102 U/L (13-40); BUN/Creatinine Ratio 3.6 (10.0-20.0); Bilirubin, Total 0.3 mg/dL (0.2-1.0); Blood Urea Nitrogen 13 mg/dL (9-23); Sodium 135 mmol/L (136-145)
[2023-10-31 04:22] LABS: INR 1.08 (0.9-1.15); Partial Thromboplastin Time 62.4 SEC (24.5-34.5); Prothrombin Time 11.4 sec (9.3-11.8)
[2023-10-31 09:44] LABS: INR 1.07 (0.9-1.15); Partial Thromboplastin Time 34.3 SEC (24.5-34.5); Prothrombin Time 11.3 sec (9.3-11.8)
[2023-10-31] MEDS ORDERED: TROLAMINE SALICYLATE 10% TOP CREAM TOP PRN (11:30)
[2023-10-31] MEDS: LIDOCAINE 5% TOPICAL PATCH TOP ONE (12:27)
[2023-10-31] MEDS: ALPRAZolam 0.25 MG TAB PO PRN (12:27)
[2023-10-31] MEDS: APIXABAN 2.5 MG TAB PO SCH (12:39)
[2023-10-31] MEDS: hydrALAZINE HCL 20 MG/ML VL IV PRN (16:58)
[2023-11-01] VITALS (23 sets, daily range): BP systolic 135–178; BP diastolic 69–83; PULSE 71–87; RESP 14–20; TEMP 97.7–99.2; O2SAT 92–100
[2023-11-01] MEDS: LIDOCAINE 5% TOPICAL PATCH TOP SCH (08:30)
[2023-11-02] VITALS (24 sets, daily range): BP systolic 153–177; BP diastolic 69–87; PULSE 71–87; RESP 16–22; TEMP 97.6–98; O2SAT 91–100
[2023-11-02] MEDS: SODIUM CHL 0.9% 1000 ML BAG XX ONE (07:00)
[2023-11-02 10:03] LABS: Basophils # (auto) 0 10 ^3/uL (0-0.2); Basophils % (auto) 0.7 % (0.0-2.0); Eosinophils # (auto) 0.1 10 ^3/uL (0-0.8); Eosinophils % (auto) 3.7 % (0.0-7.0); Hematocrit 27.7 % (41.0-53.0); Hemoglobin 9.3 g/dL (13.5-17.5); Lymphocytes # (auto) 0.8 10 ^3/uL (0.4-5.4); Mean Corpuscular Hemoglobin 29.2 pg (28.0-32.0); Mean Corpuscular Hgb Conc. 33.8 g/dL (32.0-36.0); Mean Corpuscular Volume 86.5 fL (80.0-100.0); Monocytes # (auto) 0.4 10 ^3/uL (0-1.3); Monocytes % (auto) 10.7 % (0.0-12.0); Neutrophils # (auto) 2.3 10 ^3/uL (1.6-8.6); Neutrophils % (auto) 63.9 % (37.0-80.0); Nucleated Red Blood Cells % 0.1 %; White Blood Cell 3.6 10^3/uL (4.4-10.8)
[2023-11-02] MEDS: EPOETIN ALFA-EPBX 10,000 UNIT/1ML VIAL SC ONE (21:19)
[2023-11-03] VITALS (15 sets, daily range): BP systolic 142–163; BP diastolic 71–96; PULSE 70–95; RESP 16–22; TEMP 98–99; O2SAT 94–100
[2023-11-03] MEDS: NIFEdipine ER 30 MG TAB PO SCH (08:53)
[2023-11-03] MEDS ORDERED: APIX2.5T PO ×2 (11:00)
[2023-11-03] MEDS ORDERED: CLIN150C PO ×2 (11:00)
[2023-11-04] MEDS ORDERED: SODIUM CHL 0.9% 1000 ML BAG XX ONE (07:00)
[2023-11-04] MEDS ORDERED: EPOETIN ALFA-EPBX 4,000 UNIT/ML VIAL SC ONE (21:00)
== END 2023-11-03 16:12 | disposition home health service (06) | DRG 871 ==
LOC: EDBD 19:22 → ER 19:22 → TELE-WESTW 10-28 06:44 → TELE 10-28 06:44 → TELE-WESTW 10-28 08:41
PROVIDERS: ADMIT Internal Medicine Geriatric Medicine; ATTEND Internal Medicine Geriatric Medicine
PROC: 30233N1 Transfusion of Nonautologous Red Blood Cells into Peripheral Vein, Percutaneous Approach (ICD-10-PCS; principal; 2023-10-28)
PROC: 5A1D70Z Performance of Urinary Filtration, Intermittent, Less than 6 Hours Per Day (ICD-10-PCS; 2023-10-28)
PROC: 5A1D70Z Performance of Urinary Filtration, Intermittent, Less than 6 Hours Per Day (ICD-10-PCS; 2023-10-30)
PROC: 5A1D70Z Performance of Urinary Filtration, Intermittent, Less than 6 Hours Per Day (ICD-10-PCS; 2023-11-02)
DX: A41.9 Sepsis, unspecified organism (principal); G93.41 Metabolic encephalopathy; I21.4 Non-ST elevation (NSTEMI) myocardial infarction; N18.6 End stage renal disease; R57.0 Cardiogenic shock; I50.43 Acute on chronic combined systolic (congestive) and diastolic (congestive) heart failure; J96.01 Acute respiratory failure with hypoxia; J15.69 Pneumonia due to other Gram-negative bacteria; J15.9 Unspecified bacterial pneumonia; T82.818A Embolism due to vascular prosthetic devices, implants and grafts, initial encounter; I13.2 Hypertensive heart and chronic kidney disease with heart failure and with stage 5 chronic kidney disease, or end stage renal disease; J44.0 Chronic obstructive pulmonary disease with (acute) lower respiratory infection; D61.818 Other pancytopenia; E87.1 Hypo-osmolality and hyponatremia; I69.351 Hemiplegia and hemiparesis following cerebral infarction affecting right dominant side; Z20.822 Contact with and (suspected) exposure to COVID-19; E11.22 Type 2 diabetes mellitus with diabetic chronic kidney disease; D63.1 Anemia in chronic kidney disease; I27.20 Pulmonary hypertension, unspecified; I25.10 Atherosclerotic heart disease of native coronary artery without angina pectoris; K37 Unspecified appendicitis; R62.7 Adult failure to thrive; E87.6 Hypokalemia; K59.00 Constipation, unspecified; E63.9 Nutritional deficiency, unspecified; Y83.2 Surgical operation with anastomosis, bypass or graft as the cause of abnormal reaction of the patient, or of later complication, without mention of misadventure at the time of the procedure; I44.39 Other atrioventricular block; Z88.8 Allergy status to other drugs, medicaments and biological substances; Z99.2 Dependence on renal dialysis; Z95.5 Presence of coronary angioplasty implant and graft; Z95.0 Presence of cardiac pacemaker; Z87.891 Personal history of nicotine dependence; Z79.899 Other long term (current) drug therapy; Z86.718 Personal history of other venous thrombosis and embolism; Z79.01 Long term (current) use of anticoagulants; Z79.82 Long term (current) use of aspirin; Z82.49 Family history of ischemic heart disease and other diseases of the circulatory system; Z82.3 Family history of stroke; Z83.3 Family history of diabetes mellitus; Z86.74 Personal history of sudden cardiac arrest; Z68.24 Body mass index [BMI] 24.0-24.9, adult
CPT/HCPCS: 36415; 70450; 71045; 71250; 73030; 74176; 80053; 82962; 83605; 83735; 84443; 84484; 85025; 85379; 85610; 85730; 86850; 86900; 86901; 86920; 87040; 87070; 87081; 87205; 87340; 87426; 87804; 90935; 92610; 93306; 94640; 94667; 94668; 96365; 97110; 97116; 97163; 97530; G0378; J1642; J1815; J2543

== ENCOUNTER 2024-02-16 12:51 | Inpatient (IN) | payer OTHER, MEDICAID ==
[~2024-02-16] VITALS: Ht 167.6 cm; Wt 66.6 kg
[~2024-02-16 12:51] MED LIST changes: -ALBU108A5 INH; +AML5T PO; +APIX2.5T PO; -ASPI1TAB59 PO; -ATOR20TA50 PO; +ATOR40TA52 PO; -ATOR80TA PO; -BUPR150T23 PO; -BUPR150T8 PO; +BUPR75TA98 PO; +CLIN150C PO; -CLOP75TA28 PO; +DOCU-94 PO; -DULO20CA PO; -GLIP10TA9 PO; -HYDR50CA2 PO; -ISOS20TA49 PO; -LISI10TA34 PO; -NALO4SPR3 EACHNOSTRI; +PANT40TA2 PO; -RISP0.5T45 PO; -TICA90TA PO; -TRAM50TA2 PO
[2024-02-16 13:40] VITALS: PULSE 69; RESP 11; O2SAT 96
[2024-02-16 14:28] LABS: Basophils # (auto) 0 10 ^3/uL (0-0.2); Basophils % (auto) 0.8 % (0.0-2.0); Eosinophils # (auto) 0.1 10 ^3/uL (0-0.8); Eosinophils % (auto) 3.6 % (0.0-7.0); Hematocrit 26.9 % (41.0-53.0); Hemoglobin 8.7 g/dL (13.5-17.5); Lymphocytes # (auto) 0.6 10 ^3/uL (0.4-5.4); Lymphocytes % (auto) 14.1 % (10.0-50.0); Mean Corpuscular Hemoglobin 26.1 pg (28.0-32.0); Mean Corpuscular Hgb Conc. 32.5 g/dL (32.0-36.0); Mean Corpuscular Volume 80.1 fL (80.0-100.0); Monocytes # (auto) 0.4 10 ^3/uL (0-1.3); Monocytes % (auto) 8.7 % (0.0-12.0); Neutrophils % (auto) 72.8 % (37.0-80.0); Platelet Count (auto) 196 10^3/uL (140-450); Red Blood Cells 3.35 10^6/uL (4.5-5.90); Red Cell Distribution Width 20.6 % (11.8-14.3); White Blood Cell 4.1 10^3/uL (4.4-10.8)
[2024-02-16 14:44] LABS: Alanine Aminotransferase 10 U/L (7-40); Albumin 3.8 g/dL (3.2-4.8); Alkaline Phosphatase 84 U/L (46-116); Anion Gap 9 (5-15); Aspartate Aminotransferase 17 U/L (13-40); Blood Urea Nitrogen 39 mg/dL (9-23); Calcium 8.7 mg/dL (8.7-10.4); Carbon Dioxide 30 mmol/L (20-30); Chloride 94 mmol/L (98-107); Glucose 139 mg/dL (74-106); Potassium 4.9 mmol/L (3.5-5.1); Sodium 133 mmol/L (136-145)
[2024-02-16 14:45] LABS: Bilirubin, Total 0.2 mg/dL (0.2-1.0)
[2024-02-16 15:40] LABS: COVID19 ANTIGEN SOFIA FIA NEGATIVE (NEGATIVE)
[2024-02-16] MEDS: FUROSEMIDE 20 MG/2 ML VIAL IV ONE (17:30)
[2024-02-16 18:01] LABS: Base Excess 8.5 mmol/L (-2.0-3.0)
[2024-02-16 19:57] VITALS: PULSE 70; RESP 23; O2SAT 98
[2024-02-16] MEDS: ACCU-CHEK COMFORT CURVE STRIP VI SCH (22:00)
[2024-02-16] MEDS ORDERED: DEXTROSE (50%) 50ML SYRG IV PRN (22:00)
[2024-02-16] MEDS ORDERED: ATORVASTATIN 20 MG TAB PO SCH (22:00)
[2024-02-16] MEDS: InsuLIN REG 1unit/0.01ml Soln (100units/ml) SC SCH (22:00)
[2024-02-16] MEDS: BACLOFEN 10 MG TAB PO ONE (22:38)
[2024-02-16] MEDS: ATORVASTATIN 20 MG TAB PO SCH (23:22)
[2024-02-16] MEDS: NIFEdipine ER 30 MG TAB PO ONE (23:49)
[2024-02-16] MEDS: METOPROLOL TARTRATE 25 MG TAB PO SCH (23:49)
[2024-02-17] VITALS (81 sets, daily range): BP systolic 87–174; BP diastolic 26–69; PULSE 55–89; RESP 7–26; TEMP 96.4–98.6; O2SAT 87–100
[2024-02-17] MEDS ORDERED: NITROGLYCERIN 0.4 MG SL TAB SL PRN (01:30)
[2024-02-17] MEDS ORDERED: MORPHINE SULFATE INJ 2 MG/ml SYRG IV PRN (01:30)
[2024-02-17] MEDS: NITROGLYCERIN 0.4 MG SL TAB SL PRN (01:53)
[2024-02-17] MEDS: HYDROcodone-ACET 5/325MG TAB PO ONE (03:07)
[2024-02-17] MEDS: hydrALAZINE HCL 20 MG/ML VL IV ONE (04:22)
[2024-02-17 04:25] LABS: Base Excess 6.5 mmol/L (-2.0-3.0)
[2024-02-17] MEDS: SUCCINYLCHOLINE CHLORIDE 20 MG/ML 10ML VIAL IV ONE (05:08)
[2024-02-17] MEDS: ETOMIDATE (2MG/ML) 20ML VIAL IV ONE (05:08)
[2024-02-17] MEDS: fentaNYL Drip 2500mCg/250mlNS 250 ML IV ONE (05:18)
[2024-02-17] MEDS: MIDAZOLAM DRIP 50 mg/50mL 50 ML IV ONE (05:19)
[2024-02-17] MEDS: SODIUM CHLOR 0.9% PF (SALINE LOCK) 10ML VIAL/SYR IV SCH (06:00)
[2024-02-17] MEDS: MIDAZOLAM DRIP 50 mg/50mL 50 ML IV SCH (06:05)
[2024-02-17] MEDS: fentaNYL Drip 2500mCg/250mlNS 250 ML IV SCH (06:06)
[2024-02-17 06:24] LABS: Chloride 94 mmol/L (98-107); Potassium 4.8 mmol/L (3.5-5.1); Sodium 131 mmol/L (136-145)
[2024-02-17 06:25] LABS: Anion Gap 8 (5-15); Calcium 9.2 mg/dL (8.7-10.4); Carbon Dioxide 29 mmol/L (20-30)
[2024-02-17 06:30] LABS: Blood Urea Nitrogen 42 mg/dL (9-23); Glucose 151 mg/dL (74-106)
[2024-02-17] MEDS: buPROPion HCL 75 MG TAB PO SCH (07:00)
[2024-02-17] MEDS: ENOXAPARIN SOD 100 MG/1 ML SYRINGE SC ONE (07:38)
[2024-02-17 08:20] LABS: Base Excess 5.1 mmol/L (-2.0-3.0)
[2024-02-17 09:33] LABS: Basophils # (auto) 0 10 ^3/uL (0-0.2); Eosinophils # (auto) 0.2 10 ^3/uL (0-0.8); Lymphocytes # (auto) 1.5 10 ^3/uL (0.4-5.4); Lymphocytes % (auto) 15.9 % (10.0-50.0)
[2024-02-17 09:36] LABS: Basophils % (auto) 0.5 % (0.0-2.0); Eosinophils % (auto) 2.6 % (0.0-7.0); Hematocrit 29.6 % (41.0-53.0); Hemoglobin 9.6 g/dL (13.5-17.5); Mean Corpuscular Hgb Conc. 32.4 g/dL (32.0-36.0); Mean Corpuscular Volume 80.1 fL (80.0-100.0); Monocytes # (auto) 0.8 10 ^3/uL (0-1.3); Monocytes % (auto) 8.3 % (0.0-12.0); Neutrophils # (auto) 6.7 10 ^3/uL (1.6-8.6); Neutrophils % (auto) 72.7 % (37.0-80.0); Platelet Count (auto) 229 10^3/uL (140-450); Red Blood Cells 3.69 10^6/uL (4.5-5.90); White Blood Cell 9.2 10^3/uL (4.4-10.8)
[2024-02-17 09:43] LABS: Red Cell Distribution Width 20.3 % (11.8-14.3)
[2024-02-17] MEDS: DULoxetine HCL 30 MG CAP PO SCH (10:00)
[2024-02-17] MEDS: NIFEdipine ER 30 MG TAB PO SCH (10:00)
[2024-02-17] MEDS: amLODIPine BESYLATE 5 MG TAB PO SCH (10:00)
[2024-02-17] MEDS: ASPirin 81 mg TAB PO SCH (10:00)
[2024-02-17] MEDS: SODIUM CHL 0.9% 1000 ML BAG XX ONE (12:30)
[2024-02-17 14:00] LABS: Basophils # (auto) 0 10 ^3/uL (0-0.2); Eosinophils # (auto) 0.1 10 ^3/uL (0-0.8); Hemoglobin 8.1 g/dL (13.5-17.5); Lymphocytes # (auto) 0.5 10 ^3/uL (0.4-5.4); Lymphocytes % (auto) 10.6 % (10.0-50.0); Monocytes # (auto) 0.6 10 ^3/uL (0-1.3)
[2024-02-17 14:02] LABS: Basophils % (auto) 0.5 % (0.0-2.0); Eosinophils % (auto) 2.1 % (0.0-7.0); Hematocrit 25.7 % (41.0-53.0); Mean Corpuscular Hemoglobin 25.3 pg (28.0-32.0); Mean Corpuscular Hgb Conc. 31.6 g/dL (32.0-36.0); Mean Corpuscular Volume 80.2 fL (80.0-100.0); Monocytes % (auto) 12.9 % (0.0-12.0); Neutrophils # (auto) 3.5 10 ^3/uL (1.6-8.6); Neutrophils % (auto) 73.9 % (37.0-80.0); Platelet Count (auto) 172 10^3/uL (140-450); White Blood Cell 4.8 10^3/uL (4.4-10.8)
[2024-02-17 14:03] LABS: Red Cell Distribution Width 20.5 % (11.8-14.3)
[2024-02-17 14:24] LABS: INR 1.07 (0.9-1.15); Partial Thromboplastin Time 33.8 SEC (24.5-34.5); Prothrombin Time 11.3 sec (9.3-11.8)
[2024-02-17] MEDS: NOREPINEPHRINE 8 MG/250ML KIT 250 ML IV SCH (14:53)
[2024-02-17] MEDS: HEPARIN 1,000 UNITS/ml 1ML VIAL IV ONE (16:30)
[2024-02-17] MEDS ORDERED: CLINIMIX PER PHARMACY 0 ML IV SCH (16:30)
[2024-02-17 16:50] LABS: Magnesium 2.2 mg/dL (1.6-2.6)
[2024-02-17] MEDS: HEPARIN 1,000 UNITS/ml 1ML VIAL ONE ×2 (17:27→17:45)
[2024-02-17] MEDS: HEPARIN DRIP/D5W 100UNITS/ML 250 ML IV SCH (18:34)
[2024-02-17] MEDS: EPOETIN ALFA-EPBX 4,000 UNIT/ML VIAL SC ONE (20:35)
[2024-02-17] MEDS: AMINO ACID INFUSION IN D10W 1,000 ML IV SCH (21:18)
[2024-02-18] VITALS (99 sets, daily range): BP systolic 92–194; BP diastolic 32–70; PULSE 53–85; RESP 8–19; TEMP 98.4–99.1; O2SAT 87–100
[2024-02-18 01:14] LABS: INR 1.11 (0.9-1.15); Prothrombin Time 11.7 sec (9.3-11.8)
[2024-02-18] MEDS: HEPARIN DRIP/D5W 100UNITS/ML 250 ML IV SCH ×2 (02:30→17:00)
[2024-02-18 06:24] LABS: Albumin 3.6 g/dL (3.2-4.8); Alkaline Phosphatase 75 U/L (46-116); Anion Gap 6 (5-15); Aspartate Aminotransferase 13 U/L (13-40); Blood Urea Nitrogen 38 mg/dL (9-23); Calcium 8.7 mg/dL (8.7-10.4); Carbon Dioxide 31 mmol/L (20-31); Chloride 99 mmol/L (98-107); Glucose 101 mg/dL (74-106); Magnesium 2.1 mg/dL (1.6-2.6); Potassium 4.6 mmol/L (3.5-5.1); Sodium 136 mmol/L (136-145)
[2024-02-18 06:25] LABS: Bilirubin, Total 0.2 mg/dL (0.2-1.0); Phosphorus 3.3 mg/dL (2.4-5.1); Total Protein 6.9 g/dL (5.7-8.2)
[2024-02-18 06:26] LABS: Alanine Aminotransferase < 9 U/L (7-40)
[2024-02-18 07:02] LABS: Basophils # (auto) 0 10 ^3/uL (0-0.2); Hemoglobin 8.2 g/dL (13.5-17.5); Lymphocytes # (auto) 0.8 10 ^3/uL (0.4-5.4); Monocytes # (auto) 0.6 10 ^3/uL (0-1.3); Monocytes % (auto) 14.5 % (0.0-12.0); Neutrophils # (auto) 2.5 10 ^3/uL (1.6-8.6); White Blood Cell 4.2 10^3/uL (4.4-10.8)
[2024-02-18 07:03] LABS: Basophils % (auto) 0.9 % (0.0-2.0); Eosinophils # (auto) 0.3 10 ^3/uL (0-0.8); Eosinophils % (auto) 6.1 % (0.0-7.0); Hematocrit 26.3 % (41.0-53.0); Lymphocytes % (auto) 19.4 % (10.0-50.0); Mean Corpuscular Hemoglobin 25.2 pg (28.0-32.0); Mean Corpuscular Hgb Conc. 31.3 g/dL (32.0-36.0); Mean Corpuscular Volume 80.5 fL (80.0-100.0); Neutrophils % (auto) 59.1 % (37.0-80.0); Platelet Count (auto) 203 10^3/uL (140-450); Red Blood Cells 3.27 10^6/uL (4.5-5.90)
[2024-02-18 07:05] LABS: Red Cell Distribution Width 20.3 % (11.8-14.3)
[2024-02-18 07:53] LABS: Base Excess 2.6 mmol/L (-2.0-3.0)
[2024-02-18] MEDS: ROCURONIUM 10MG/ML 10ML VIAL IV ONE ×2 (08:32→09:13)
[2024-02-18] MEDS: IOHEXOL 350 MG/ML 100ML IJ ONE (08:54)
[2024-02-18 11:25] LABS: INR 1.09 (0.9-1.15); Partial Thromboplastin Time 62.2 SEC (24.5-34.5); Prothrombin Time 11.5 sec (9.3-11.8)
[2024-02-18] MEDS ORDERED: VANCOMYCIN PER PHARMACY 0 MG IV SCH (16:15)
[2024-02-18] MEDS ORDERED: VANCOMYCIN 1GM/200ML PREMIX 200 ML IV ONE (16:15)
[2024-02-18 16:49] LABS: INR 1.09 (0.9-1.15); Prothrombin Time 11.5 sec (9.3-11.8)
[2024-02-18 16:56] LABS: Partial Thromboplastin Time 82.8 SEC (24.5-34.5)
[2024-02-18] MEDS: MEROPENEM 1GM IVPB 50 ML IV ONE (17:40)
[2024-02-18] MEDS: VANCOMYCIN 1.75GM/350ML 350 ML IV ONE (18:46)
[2024-02-18 23:40] LABS: INR 1.08 (0.9-1.15); Partial Thromboplastin Time 50.3 SEC (24.5-34.5); Prothrombin Time 11.4 sec (9.3-11.8)
[2024-02-19] VITALS (102 sets, daily range): BP systolic 98–177; BP diastolic 36–87; PULSE 54–77; RESP 7–21; TEMP 95.4–99.5; O2SAT 90–100
[2024-02-19 06:06] LABS: Eosinophils # (auto) 0.3 10 ^3/uL (0-0.8); Eosinophils % (auto) 5.5 % (0.0-7.0); Lymphocytes # (auto) 0.7 10 ^3/uL (0.4-5.4); Monocytes # (auto) 0.6 10 ^3/uL (0-1.3); Neutrophils # (auto) 3.3 10 ^3/uL (1.6-8.6)
[2024-02-19 06:09] LABS: Basophils # (auto) 0 10 ^3/uL (0-0.2); Basophils % (auto) 0.8 % (0.0-2.0); Hematocrit 24.4 % (41.0-53.0); Hemoglobin 7.9 g/dL (13.5-17.5); Lymphocytes % (auto) 13.9 % (10.0-50.0); Mean Corpuscular Hemoglobin 25.8 pg (28.0-32.0); Mean Corpuscular Hgb Conc. 32.3 g/dL (32.0-36.0); Monocytes % (auto) 12.6 % (0.0-12.0); Neutrophils % (auto) 67.2 % (37.0-80.0); Platelet Count (auto) 221 10^3/uL (140-450); Red Blood Cells 3.04 10^6/uL (4.5-5.90); Red Cell Distribution Width 20.4 % (11.8-14.3)
[2024-02-19 06:16] LABS: INR 1.06 (0.9-1.15); Partial Thromboplastin Time 41.4 SEC (24.5-34.5); Prothrombin Time 11.2 sec (9.3-11.8)
[2024-02-19 06:28] LABS: Albumin 3.5 g/dL (3.2-4.8); Alkaline Phosphatase 71 U/L (46-116); Anion Gap 10 (5-15); Aspartate Aminotransferase 9 U/L (13-40); BUN/Creatinine Ratio 7.6 (10.0-20.0); Bilirubin, Total 0.2 mg/dL (0.2-1.0); Carbon Dioxide 27 mmol/L (20-31); Chloride 96 mmol/L (98-107); Glucose 93 mg/dL (74-106); Magnesium 2.2 mg/dL (1.6-2.6); Phosphorus 4.1 mg/dL (2.4-5.1); Potassium 4.7 mmol/L (3.5-5.1); Sodium 133 mmol/L (136-145); Total Protein 6.7 g/dL (5.7-8.2); Triglycerides 73 mg/dL (< 150)
[2024-02-19] MEDS: HEPARIN DRIP/D5W 100UNITS/ML 250 ML IV SCH ×2 (06:30→11:12)
[2024-02-19 06:31] LABS: Alanine Aminotransferase < 9 U/L (7-40); Blood Urea Nitrogen 53 mg/dL (9-23)
[2024-02-19] MEDS: SODIUM CHL 0.9% 1000 ML BAG XX ONE (07:00)
[2024-02-19] MEDS ORDERED: HEPARIN DRIP/D5W 100UNITS/ML 250 ML IV SCH (08:30)
[2024-02-19] MEDS ORDERED: MEROPENEM 1GM IVPB 50 ML IV SCH (10:00)
[2024-02-19 14:52] LABS: INR 1.07 (0.9-1.15); Partial Thromboplastin Time 66.4 SEC (24.5-34.5); Prothrombin Time 11.3 sec (9.3-11.8)
[2024-02-19 20:33] LABS: INR 1.08 (0.9-1.15); Partial Thromboplastin Time 51.4 SEC (24.5-34.5); Prothrombin Time 11.4 sec (9.3-11.8)
[2024-02-19] MEDS: MEROPENEM 500MG IVPB 50 ML IV SCH (21:22)
[2024-02-19] MEDS: EPOETIN ALFA-EPBX 10,000 UNIT/1ML VIAL SC ONE (21:23)
[2024-02-20] VITALS (99 sets, daily range): BP systolic 107–216; BP diastolic 32–131; PULSE 53–88; RESP 8–24; TEMP 98.2–99.5; O2SAT 89–100
[2024-02-20 02:42] LABS: INR 1.08 (0.9-1.15); Partial Thromboplastin Time 55.5 SEC (24.5-34.5); Prothrombin Time 11.4 sec (9.3-11.8)
[2024-02-20 04:56] LABS: Basophils # (auto) 0 10 ^3/uL (0-0.2); Eosinophils # (auto) 0.2 10 ^3/uL (0-0.8); Hemoglobin 7.7 g/dL (13.5-17.5); Lymphocytes # (auto) 0.6 10 ^3/uL (0.4-5.4); Lymphocytes % (auto) 13.7 % (10.0-50.0); Neutrophils # (auto) 2.9 10 ^3/uL (1.6-8.6)
[2024-02-20 05:03] LABS: Basophils % (auto) 0.7 % (0.0-2.0); Eosinophils % (auto) 5.1 % (0.0-7.0); Hematocrit 24.2 % (41.0-53.0); Mean Corpuscular Hemoglobin 25.9 pg (28.0-32.0); Mean Corpuscular Hgb Conc. 31.9 g/dL (32.0-36.0); Mean Corpuscular Volume 81.1 fL (80.0-100.0); Monocytes # (auto) 0.6 10 ^3/uL (0-1.3); Monocytes % (auto) 13.3 % (0.0-12.0); Neutrophils % (auto) 67.2 % (37.0-80.0); Nucleated Red Blood Cells % 0.1 %; Platelet Count (auto) 234 10^3/uL (140-450); Red Blood Cells 2.98 10^6/uL (4.5-5.90); White Blood Cell 4.2 10^3/uL (4.4-10.8)
[2024-02-20 05:08] LABS: Red Cell Distribution Width 20.2 % (11.8-14.3)
[2024-02-20 05:20] LABS: Albumin 3.5 g/dL (3.2-4.8); Alkaline Phosphatase 68 U/L (46-116); Anion Gap 7 (5-15); Aspartate Aminotransferase 9 U/L (13-40); BUN/Creatinine Ratio 7.2 (10.0-20.0); Bilirubin, Total 0.2 mg/dL (0.2-1.0); Calcium 8.9 mg/dL (8.7-10.4); Carbon Dioxide 29 mmol/L (20-31); Chloride 98 mmol/L (98-107); Glucose 114 mg/dL (74-106); Potassium 4.6 mmol/L (3.5-5.1); Sodium 134 mmol/L (136-145); Total Protein 6.8 g/dL (5.7-8.2)
[2024-02-20 05:27] LABS: Potassium 4.6 mmol/L (3.5-5.1)
[2024-02-20 05:28] LABS: Calcium 8.9 mg/dL (8.7-10.4)
[2024-02-20 05:31] LABS: Alanine Aminotransferase < 9 U/L (7-40); Blood Urea Nitrogen 40 mg/dL (9-23)
[2024-02-20 05:33] LABS: BUN/Creatinine Ratio 6.4 (10.0-20.0); Magnesium 1.9 mg/dL (1.6-2.6)
[2024-02-20 05:34] LABS: Albumin 3.5 g/dL (3.2-4.8)
[2024-02-20 05:35] LABS: Phosphorus 3.9 mg/dL (2.4-5.1)
[2024-02-20 07:14] LABS: Base Excess 1.4 mmol/L (-2.0-3.0)
[2024-02-20] MEDS ORDERED: ALBUMIN 25% 200 ML IV PRN (10:00)
[2024-02-20] MEDS: HEPARIN SODIUM (PORCINE) 5000 UNITS/ML 1ML VIAL XX ONE (10:00)
[2024-02-20] MEDS: SODIUM CHL 0.9% 1000 ML BAG XX ONE (11:06)
[2024-02-20] MEDS: hydrALAZINE HCL 20 MG/ML VL ONE (15:33)
[2024-02-20] MEDS: hydrALAZINE HCL 20 MG/ML VL IV PRN (16:21)
[2024-02-20] MEDS: cloNIDine 0.1 mg/24hr 7 DAY PATCH TD ONE (16:35)
[2024-02-20] MEDS: METOPROLOL TARTRATE 1MG/1ML-5ML VIAL IV ONE ×2 (19:54→20:40)
[2024-02-20] MEDS: EPOETIN ALFA-EPBX 4,000 UNIT/ML VIAL SC ONE (22:34)
[2024-02-20] MEDS: LORazepam 2MG/ML-1ML VIAL IM ONE (22:38)
[2024-02-21] VITALS (41 sets, daily range): BP systolic 119–194; BP diastolic 44–96; PULSE 57–75; RESP 9–18; TEMP 97.3–99.1; O2SAT 92–100
[2024-02-21 04:27] LABS: Basophils # (auto) 0 10 ^3/uL (0-0.2); Eosinophils # (auto) 0.2 10 ^3/uL (0-0.8); Hemoglobin 9.1 g/dL (13.5-17.5); Lymphocytes # (auto) 1.1 10 ^3/uL (0.4-5.4); Monocytes # (auto) 0.7 10 ^3/uL (0-1.3); Neutrophils # (auto) 3.5 10 ^3/uL (1.6-8.6); Nucleated Red Blood Cells % 0.1 %; White Blood Cell 5.5 10^3/uL (4.4-10.8)
[2024-02-21 04:31] LABS: Basophils % (auto) 0.3 % (0.0-2.0); Eosinophils % (auto) 3.8 % (0.0-7.0); Hematocrit 28.5 % (41.0-53.0); Lymphocytes % (auto) 19.5 % (10.0-50.0); Mean Corpuscular Hemoglobin 25.5 pg (28.0-32.0); Mean Corpuscular Hgb Conc. 31.9 g/dL (32.0-36.0); Mean Corpuscular Volume 79.9 fL (80.0-100.0); Monocytes % (auto) 12.4 % (0.0-12.0); Platelet Count (auto) 235 10^3/uL (140-450); Red Blood Cells 3.57 10^6/uL (4.5-5.90)
[2024-02-21 04:37] LABS: Red Cell Distribution Width 20.9 % (11.8-14.3)
[2024-02-21 04:43] LABS: INR 1.05 (0.9-1.15); Partial Thromboplastin Time 48.4 SEC (24.5-34.5); Prothrombin Time 11.1 sec (9.3-11.8)
[2024-02-21] MEDS: hydrALAZINE HCL 20 MG/ML VL IV ONE ×2 (04:47→06:59)
[2024-02-21 04:48] LABS: Alkaline Phosphatase 76 U/L (46-116); Anion Gap 8 (5-15); Aspartate Aminotransferase 12 U/L (13-40); BUN/Creatinine Ratio 5.7 (10.0-20.0); Blood Urea Nitrogen 32 mg/dL (9-23); Calcium 9.7 mg/dL (8.7-10.4); Carbon Dioxide 25 mmol/L (20-31); Chloride 98 mmol/L (98-107); Glucose 129 mg/dL (74-106); Potassium 3.8 mmol/L (3.5-5.1); Sodium 131 mmol/L (136-145)
[2024-02-21 04:49] LABS: Bilirubin, Total 0.3 mg/dL (0.2-1.0); Phosphorus 2.4 mg/dL (2.4-5.1); Total Protein 7.8 g/dL (5.7-8.2)
[2024-02-21 04:59] LABS: Alanine Aminotransferase < 9 U/L (7-40)
[2024-02-21] MEDS: HEPARIN DRIP/D5W 100UNITS/ML 250 ML IV SCH (08:02)
[2024-02-21 08:53] LABS: Hepatitis B Surface Antigen Negative (Negative)
[2024-02-21 09:13] LABS: Hepatitis A Ab IgM Negative
[2024-02-21 09:14] LABS: Hepatitis B Core IgM Negative
[2024-02-21 09:24] LABS: Hepatitis C Antibody Reactive (Negative)
[2024-02-21] MEDS: DOXYCYCLINE 100MG/250ML 250 ML IV SCH (11:56)
[2024-02-21 12:29] LABS: INR 1.06 (0.9-1.15); Partial Thromboplastin Time 54.8 SEC (24.5-34.5); Prothrombin Time 11.2 sec (9.3-11.8)
[2024-02-21] MEDS: NIFEdipine 10 MG CAP PO SCH (14:08)
[2024-02-21] MEDS: MORPHINE SULFATE INJ 2 MG/ml SYRG IV PRN (16:34)
[2024-02-21 19:47] LABS: INR 1.07 (0.9-1.15); Partial Thromboplastin Time 57.9 SEC (24.5-34.5); Prothrombin Time 11.3 sec (9.3-11.8)
[2024-02-22] VITALS (15 sets, daily range): BP systolic 120–175; BP diastolic 49–87; PULSE 62–78; RESP 12–24; TEMP 97.2–98.7; O2SAT 89–99
[2024-02-22 01:24] LABS: INR 1.07 (0.9-1.15); Partial Thromboplastin Time 52.6 SEC (24.5-34.5); Prothrombin Time 11.3 sec (9.3-11.8)
[2024-02-22 03:54] LABS: Basophils # (auto) 0 10 ^3/uL (0-0.2); Eosinophils # (auto) 0.2 10 ^3/uL (0-0.8); Hemoglobin 9.2 g/dL (13.5-17.5)
[2024-02-22 03:57] LABS: Basophils % (auto) 0.4 % (0.0-2.0); Eosinophils % (auto) 4.2 % (0.0-7.0); Hematocrit 28.5 % (41.0-53.0); Lymphocytes # (auto) 0.7 10 ^3/uL (0.4-5.4); Mean Corpuscular Hemoglobin 25.8 pg (28.0-32.0); Mean Corpuscular Hgb Conc. 32.4 g/dL (32.0-36.0); Mean Corpuscular Volume 79.5 fL (80.0-100.0); Monocytes # (auto) 0.5 10 ^3/uL (0-1.3); Monocytes % (auto) 10.1 % (0.0-12.0); Neutrophils % (auto) 73.3 % (37.0-80.0); Nucleated Red Blood Cells % 0.2 %; Platelet Count (auto) 263 10^3/uL (140-450); Red Blood Cells 3.58 10^6/uL (4.5-5.90); White Blood Cell 5.4 10^3/uL (4.4-10.8)
[2024-02-22 04:03] LABS: Albumin 3.9 g/dL (3.2-4.8); Alkaline Phosphatase 76 U/L (46-116); Anion Gap 12 (5-15); Aspartate Aminotransferase 13 U/L (13-40); BUN/Creatinine Ratio 4.9 (10.0-20.0); Bilirubin, Total 0.3 mg/dL (0.2-1.0); Blood Urea Nitrogen 35 mg/dL (9-23); Calcium 9.9 mg/dL (8.7-10.4); Carbon Dioxide 21 mmol/L (20-31); Chloride 95 mmol/L (98-107); Glucose 139 mg/dL (74-106); Phosphorus 2.4 mg/dL (2.4-5.1); Potassium 3.7 mmol/L (3.5-5.1); Sodium 128 mmol/L (136-145); Total Protein 7.8 g/dL (5.7-8.2)
[2024-02-22 04:08] LABS: Red Cell Distribution Width 20.7 % (11.8-14.3)
[2024-02-22 04:20] LABS: Alanine Aminotransferase < 9 U/L (7-40)
[2024-02-22] MEDS: NIFEdipine ER 30 MG TAB PO SCH (10:00)
[2024-02-22] MEDS: APIXABAN 5 MG TAB PO SCH (11:36)
[2024-02-22] MEDS: SODIUM CHL 0.9% 1000 ML BAG XX ONE (13:13)
[2024-02-22] MEDS: EPOETIN ALFA-EPBX 4,000 UNIT/ML VIAL SC ONE (21:49)
[2024-02-23] VITALS (11 sets, daily range): BP systolic 120–197; BP diastolic 53–73; PULSE 63–80; RESP 16–26; TEMP 97.9–98.3; O2SAT 93–99
[2024-02-23 01:06] LABS: INR 1.18 (0.9-1.15); Partial Thromboplastin Time 34.5 SEC (24.5-34.5); Prothrombin Time 12.4 sec (9.3-11.8)
[2024-02-23 06:05] LABS: Chloride 100 mmol/L (98-107); Potassium 3.8 mmol/L (3.5-5.1)
[2024-02-23 06:06] LABS: Anion Gap 9 (5-15); Calcium 9.6 mg/dL (8.7-10.4); Carbon Dioxide 26 mmol/L (20-31)
[2024-02-23 06:11] LABS: BUN/Creatinine Ratio 4.9 (10.0-20.0); Glucose 111 mg/dL (74-106)
[2024-02-23 06:30] LABS: Blood Urea Nitrogen 25 mg/dL (9-23); Sodium 135 mmol/L (136-145)
[2024-02-23] MEDS: amLODIPine BESYLATE 5 MG TAB PO SCH (09:40)
[2024-02-23] MEDS ORDERED: NIFEdipine ER 30 MG TAB PO SCH (10:00)
[2024-02-23] MEDS: METOPROLOL TARTRATE 50 MG TAB PO SCH (22:05)
[2024-02-24] VITALS (12 sets, daily range): BP systolic 136–191; BP diastolic 62–80; PULSE 58–77; RESP 16–20; TEMP 98–99.1; O2SAT 92–99
[2024-02-24] MEDS: SODIUM CHL 0.9% 1000 ML BAG XX ONE (07:00)
[2024-02-24] MEDS: IPRATROPIUM BROM 0.5 MG/2.5ML INH SOL NEB PRN (08:11)
[2024-02-24] MEDS: ALBUTEROL SULF 2.5 MG/0.5ML(0.5%) NEB SOLN NEB PRN (08:11)
[2024-02-24] MEDS: LABETALOL HCL 200 MG TAB PO SCH (16:35)
[2024-02-24] MEDS: EPOETIN ALFA-EPBX 4,000 UNIT/ML VIAL SC ONE (22:24)
[2024-02-25] VITALS (8 sets, daily range): BP systolic 137–169; BP diastolic 61–67; PULSE 57–77; RESP 16–19; TEMP 97.7–97.8; O2SAT 90–100
[2024-02-25 13:27] LABS: Base Excess 4.6 mmol/L (-2.0-3.0)
[2024-02-25 16:06] LABS: Antithrombin III Antigen 73 % (72-124)
[2024-02-26] VITALS (11 sets, daily range): BP systolic 109–176; BP diastolic 49–76; PULSE 60–80; RESP 7–18; TEMP 97.6–98.8; O2SAT 90–97
[2024-02-26] MEDS: SODIUM CHL 0.9% 1000 ML BAG XX ONE (07:00)
[2024-02-26 07:24] LABS: Chloride 97 mmol/L (98-107); Potassium 4.3 mmol/L (3.5-5.1); Sodium 132 mmol/L (136-145)
[2024-02-26 07:25] LABS: Anion Gap 9 (5-15); Carbon Dioxide 26 mmol/L (20-31)
[2024-02-26 07:30] LABS: Glucose 102 mg/dL (74-106)
[2024-02-26 07:31] LABS: BUN/Creatinine Ratio 7.5 (10.0-20.0); Blood Urea Nitrogen 48 mg/dL (9-23)
[2024-02-26] MEDS: cefTRIAXone 1GM/50ML D5W 50 ML IV SCH (13:58)
[2024-02-26] MEDS: LOSARTAN POTASSIUM 25 MG TAB PO SCH (14:03)
[2024-02-26] MEDS: EPOETIN ALFA-EPBX 4,000 UNIT/ML VIAL SC ONE (21:05)
[2024-02-27] VITALS (10 sets, daily range): BP systolic 142–171; BP diastolic 51–66; PULSE 59–68; RESP 16–18; TEMP 97.5–98.4; O2SAT 90–97
[2024-02-27 08:09] LABS: Chloride 99 mmol/L (98-107); Potassium 4.2 mmol/L (3.5-5.1); Sodium 134 mmol/L (136-145)
[2024-02-27 08:10] LABS: Anion Gap 7 (5-15); Calcium 9.2 mg/dL (8.7-10.4); Carbon Dioxide 28 mmol/L (20-31)
[2024-02-27 08:15] LABS: BUN/Creatinine Ratio 6.4 (10.0-20.0); Glucose 83 mg/dL (74-106)
[2024-02-27 08:16] LABS: Blood Urea Nitrogen 30 mg/dL (9-23)
[2024-02-27] MEDS: NIFEdipine ER 30 MG TAB PO SCH (09:05)
[2024-02-27] MEDS: Glucerna Carbsteady SHAKE Vanilla 8oz PO SCH (12:00)
[2024-02-27] MEDS: hydrALAZINE HCL 25 MG TAB PO ONE (15:25)
[2024-02-27] MEDS: hydrALAZINE HCL 25 MG TAB PO SCH (22:00)
[2024-02-28] VITALS (11 sets, daily range): BP systolic 129–162; BP diastolic 54–72; PULSE 58–88; RESP 16–20; TEMP 97.9–98.8; O2SAT 90–100
[2024-02-28 07:27] LABS: Basophils # (auto) 0 10 ^3/uL (0-0.2); Basophils % (auto) 0.8 % (0.0-2.0); Eosinophils # (auto) 0.4 10 ^3/uL (0-0.8); Hemoglobin 7.3 g/dL (13.5-17.5); Monocytes # (auto) 0.5 10 ^3/uL (0-1.3)
[2024-02-28 07:30] LABS: Eosinophils % (auto) 6.6 % (0.0-7.0); Hematocrit 22.6 % (41.0-53.0); Lymphocytes # (auto) 0.9 10 ^3/uL (0.4-5.4); Lymphocytes % (auto) 15.9 % (10.0-50.0); Mean Corpuscular Hgb Conc. 32.4 g/dL (32.0-36.0); Mean Corpuscular Volume 77.2 fL (80.0-100.0); Monocytes % (auto) 9.7 % (0.0-12.0); Neutrophils # (auto) 3.7 10 ^3/uL (1.6-8.6); Platelet Count (auto) 271 10^3/uL (140-450); Red Blood Cells 2.93 10^6/uL (4.5-5.90); Red Cell Distribution Width 20.9 % (11.8-14.3); White Blood Cell 5.6 10^3/uL (4.4-10.8)
[2024-02-28 07:39] LABS: Anion Gap 7 (5-15); Calcium 8.9 mg/dL (8.7-10.4); Carbon Dioxide 27 mmol/L (20-31); Chloride 96 mmol/L (98-107); Potassium 4.9 mmol/L (3.5-5.1); Sodium 130 mmol/L (136-145)
[2024-02-28 07:45] LABS: BUN/Creatinine Ratio 7.2 (10.0-20.0); Glucose 56 mg/dL (74-106)
[2024-02-28 07:46] LABS: Blood Urea Nitrogen 42 mg/dL (9-23)
[2024-02-28] MEDS: cloNIDine 0.2 mg/24hr 7DAY PATCH TD SCH (10:15)
[2024-02-28] MEDS: THROAT LOZENGES(CEPASTAT) MT PRN (14:05)
[2024-02-28] MEDS: HYDROcodone-ACET 5/325MG TAB PO PRN (14:05)
[2024-02-28] MEDS ORDERED: VANCOMYCIN PER PHARMACY 0 MG IV SCH (16:30)
[2024-02-28] MEDS ORDERED: VANCOMYCIN 1GM/250ML 250 ML IV ONE (18:00)
[2024-02-28] MEDS: VANCOMYCIN 1GM/250ML 250 ML IV ONE (20:22)
[2024-02-28] MEDS: EPOETIN ALFA-EPBX 10,000 UNIT/1ML VIAL SC ONE (21:22)
[2024-02-28] MEDS: MELATONIN 5 MG TAB PO SCH (21:36)
[2024-02-29] VITALS (37 sets, daily range): BP systolic 114–243; BP diastolic 36–117; PULSE 20–118; RESP 13–28; TEMP 97.7–98.9; O2SAT 81–100
[2024-02-29] MEDS: LIDOCAINE VISCOUS 2% 15ML UD MT ONE (06:46)
[2024-02-29 07:15] LABS: Anion Gap 7 (5-15); Carbon Dioxide 29 mmol/L (20-31); Chloride 96 mmol/L (98-107); Potassium 4.3 mmol/L (3.5-5.1); Sodium 132 mmol/L (136-145)
[2024-02-29 07:16] LABS: Calcium 8.9 mg/dL (8.7-10.4)
[2024-02-29 07:21] LABS: BUN/Creatinine Ratio 5.5 (10.0-20.0); Glucose 75 mg/dL (74-106)
[2024-02-29 07:24] LABS: Blood Urea Nitrogen 24 mg/dL (9-23)
[2024-02-29 07:42] LABS: Basophils # (auto) 0 10 ^3/uL (0-0.2); Basophils % (auto) 0.8 % (0.0-2.0); Eosinophils # (auto) 0.3 10 ^3/uL (0-0.8); Eosinophils % (auto) 6.8 % (0.0-7.0); Hematocrit 24.2 % (41.0-53.0); Hemoglobin 7.7 g/dL (13.5-17.5); Lymphocytes # (auto) 0.8 10 ^3/uL (0.4-5.4); Mean Corpuscular Hemoglobin 24.6 pg (28.0-32.0); Mean Corpuscular Volume 76.9 fL (80.0-100.0); Monocytes # (auto) 0.5 10 ^3/uL (0-1.3); Monocytes % (auto) 10.7 % (0.0-12.0); Neutrophils # (auto) 3.3 10 ^3/uL (1.6-8.6); Neutrophils % (auto) 65.7 % (37.0-80.0); Platelet Count (auto) 270 10^3/uL (140-450); Red Blood Cells 3.14 10^6/uL (4.5-5.90); Red Cell Distribution Width 20.8 % (11.8-14.3); White Blood Cell 5.1 10^3/uL (4.4-10.8)
[2024-02-29] MEDS: hydrALAZINE HCL 25 MG TAB PO SCH (14:00)
[2024-02-29] MEDS: ONDANSETRON HCL 4 MG/2 ML VIAL IV PRN (17:12)
[2024-02-29] MEDS: PROCHLORPERAZINE EDISYLATE 5 MG/ML 2ML VIAL ONE (18:04)
[2024-02-29] MEDS: ONDANSETRON HCL 4 MG/2 ML VIAL IV ONE (18:05)
[2024-02-29] MEDS: ONDANSETRON HCL 4 MG/2 ML VIAL ONE (18:10)
[2024-02-29] MEDS: SUCCINYLCHOLINE CHLORIDE 20 MG/ML 10ML VIAL IV ONE (18:10)
[2024-02-29] MEDS: ETOMIDATE (2MG/ML) 20ML VIAL IV ONE (18:13)
[2024-02-29] MEDS: ROCURONIUM 10MG/ML 10ML VIAL IV ONE (18:13)
[2024-02-29 18:30] LABS: Eosinophils # (auto) 0.4 10 ^3/uL (0-0.8); Monocytes # (auto) 0.5 10 ^3/uL (0-1.3); Neutrophils # (auto) 3.6 10 ^3/uL (1.6-8.6); White Blood Cell 5.6 10^3/uL (4.4-10.8)
[2024-02-29 18:32] LABS: Basophils # (auto) 0.1 10 ^3/uL (0-0.2); Eosinophils % (auto) 7.3 % (0.0-7.0); Hematocrit 24.2 % (41.0-53.0); Hemoglobin 7.7 g/dL (13.5-17.5); Lymphocytes % (auto) 18.4 % (10.0-50.0); Mean Corpuscular Hemoglobin 24.5 pg (28.0-32.0); Mean Corpuscular Hgb Conc. 31.7 g/dL (32.0-36.0); Mean Corpuscular Volume 77.3 fL (80.0-100.0); Monocytes % (auto) 9.6 % (0.0-12.0); Neutrophils % (auto) 63.7 % (37.0-80.0); Nucleated Red Blood Cells % 0.1 %; Platelet Count (auto) 322 10^3/uL (140-450); Red Blood Cells 3.13 10^6/uL (4.5-5.90)
[2024-02-29] MEDS: MIDAZOLAM DRIP 50 mg/50mL 50 ML IV ONE (18:34)
[2024-02-29 18:35] LABS: Red Cell Distribution Width 20.8 % (11.8-14.3)
[2024-02-29 18:37] LABS: Alanine Aminotransferase 14 U/L (7-40); Albumin 3.5 g/dL (3.2-4.8); Alkaline Phosphatase 76 U/L (46-116); Anion Gap 8 (5-15); Aspartate Aminotransferase 31 U/L (13-40); BUN/Creatinine Ratio 6.1 (10.0-20.0); Blood Urea Nitrogen 31 mg/dL (9-23); Calcium 8.9 mg/dL (8.7-10.4); Carbon Dioxide 27 mmol/L (20-31); Chloride 96 mmol/L (98-107); Glucose 123 mg/dL (74-106); Magnesium 1.9 mg/dL (1.6-2.6); Potassium 5.2 mmol/L (3.5-5.1); Sodium 131 mmol/L (136-145)
[2024-02-29 18:38] LABS: Bilirubin, Total 0.3 mg/dL (0.2-1.0)
[2024-02-29] MEDS: fentaNYL Drip 2500mCg/250mlNS 250 ML IV SCH (18:45)
[2024-02-29] MEDS: NOREPINEPHRINE 8 MG/250ML KIT 250 ML IV SCH (18:45)
[2024-02-29] MEDS: MIDAZOLAM DRIP 50 mg/50mL 50 ML IV SCH (18:45)
[2024-02-29 18:56] LABS: INR 1.13 (0.9-1.15); Prothrombin Time 11.9 sec (9.3-11.8)
[2024-02-29] MEDS: EPINEPHrine HCL 250 ML IV ONE (18:58)
[2024-02-29] MEDS: PHENYLEPHRINE IV 250 ML IV ONE (18:58)
[2024-02-29] MEDS: VASOPRESSIN 20 UNIT/ML ONE (18:59)
[2024-02-29] MEDS: EPINEPHrine HCL 250 ML IV SCH (19:15)
[2024-02-29] MEDS: VASOPRESSIN 20 UNITS in SODIUM CHL 0.9% 99 ML IV SCH (19:15)
[2024-02-29] MEDS: PHENYLEPHRINE IV 250 ML IV SCH (19:15)
[2024-02-29 19:43] LABS: Base Excess -2.2 mmol/L (-2.0-3.0)
[2024-02-29] MEDS: PANTOPRAZOLE 40mg/50ML NS AE 50 ML IV SCH (20:13)
[2024-02-29] MEDS: PIPERACILLIN-TAZOB 3.375GM 100 ML IV SCH (20:13)
[2024-02-29] MEDS: OCTREOTIDE ACETATE 500 MCG in SODIUM CHL 0.9% 99 ML IV SCH (20:58)
[2024-02-29] MEDS ORDERED: PIPERACILLIN-TAZOB 2.25GM 50 ML IV SCH (22:00)
[2024-03-01] VITALS (112 sets, daily range): BP systolic 113–167; BP diastolic 39–62; PULSE 50–110; RESP 13–25; TEMP 97–99.3; O2SAT 83–100
[2024-03-01 06:59] LABS: Alanine Aminotransferase 10 U/L (7-40); Albumin 3.2 g/dL (3.2-4.8); Alkaline Phosphatase 71 U/L (46-116); Anion Gap 7 (5-15); Aspartate Aminotransferase 27 U/L (13-40); BUN/Creatinine Ratio 6.6 (10.0-20.0); Bilirubin, Total 0.4 mg/dL (0.2-1.0); Blood Urea Nitrogen 37 mg/dL (9-23); Calcium 8.3 mg/dL (8.7-10.4); Carbon Dioxide 28 mmol/L (20-31); Chloride 95 mmol/L (98-107); Glucose 92 mg/dL (74-106); Potassium 5.4 mmol/L (3.5-5.1); Sodium 130 mmol/L (136-145); Total Protein 6.3 g/dL (5.7-8.2)
[2024-03-01 07:09] LABS: Basophils # (auto) 0 10 ^3/uL (0-0.2); Basophils % (auto) 0.6 % (0.0-2.0); Eosinophils # (auto) 0.2 10 ^3/uL (0-0.8); Eosinophils % (auto) 2.8 % (0.0-7.0); Hematocrit 25.6 % (41.0-53.0); Hemoglobin 8.3 g/dL (13.5-17.5); Lymphocytes # (auto) 0.8 10 ^3/uL (0.4-5.4); Lymphocytes % (auto) 12.8 % (10.0-50.0); Mean Corpuscular Hemoglobin 25.7 pg (28.0-32.0); Mean Corpuscular Hgb Conc. 32.4 g/dL (32.0-36.0); Mean Corpuscular Volume 79.1 fL (80.0-100.0); Monocytes # (auto) 0.6 10 ^3/uL (0-1.3); Monocytes % (auto) 10.1 % (0.0-12.0); Neutrophils # (auto) 4.7 10 ^3/uL (1.6-8.6); Neutrophils % (auto) 73.7 % (37.0-80.0); Nucleated Red Blood Cells % 0.1 %; Platelet Count (auto) 251 10^3/uL (140-450); Red Blood Cells 3.23 10^6/uL (4.5-5.90); Red Cell Distribution Width 19.5 % (11.8-14.3); White Blood Cell 6.3 10^3/uL (4.4-10.8)
[2024-03-01] MEDS: SODIUM CHL 0.9% 1000 ML BAG XX ONE (08:08)
[2024-03-01 10:10] LABS: Base Excess 2.7 mmol/L (-2.0-3.0)
[2024-03-01] MEDS ORDERED: SODIUM CHLORIDE LOCK 10 ML ONE (10:38)
[2024-03-01] MEDS ORDERED: diphenhdrAMINE HCL 50 MG/1 ML VL ONE (10:38)
[2024-03-01] MEDS ORDERED: EPINEPHrine HCL 1 MG/10 ML SYRG ONE (10:38)
[2024-03-01] MEDS: MIDAZOLAM HCL 5 MG/ML-1ML VIAL ONE (12:05)
[2024-03-01] MEDS: fentaNYL CITRATE 100 MCG/2 ML VL ONE (12:05)
[2024-03-01] MEDS: VANCOMYCIN 500 MG in D5W 5% 100 ML IV ONE (15:20)
[2024-03-01] MEDS: EPOETIN ALFA-EPBX 10,000 UNIT/1ML VIAL SC ONE (20:38)
[2024-03-01] MEDS: PANTOPRAZOLE 40 MG/10 ML VIAL INJ IV SCH (21:03)
[2024-03-02] VITALS (102 sets, daily range): BP systolic 130–169; BP diastolic 47–72; PULSE 50–59; RESP 11–21; TEMP 97.3–98.6; O2SAT 95–100
[2024-03-02 05:41] LABS: Basophils # (auto) 0 10 ^3/uL (0-0.2); Basophils % (auto) 0.8 % (0.0-2.0); Eosinophils # (auto) 0.4 10 ^3/uL (0-0.8); Eosinophils % (auto) 7.6 % (0.0-7.0); Hemoglobin 8.6 g/dL (13.5-17.5); Lymphocytes # (auto) 0.9 10 ^3/uL (0.4-5.4); Lymphocytes % (auto) 17.4 % (10.0-50.0); Mean Corpuscular Hemoglobin 26.2 pg (28.0-32.0); Mean Corpuscular Hgb Conc. 33.1 g/dL (32.0-36.0); Mean Corpuscular Volume 79.2 fL (80.0-100.0); Monocytes # (auto) 0.6 10 ^3/uL (0-1.3); Monocytes % (auto) 11.2 % (0.0-12.0); Neutrophils # (auto) 3.1 10 ^3/uL (1.6-8.6); Nucleated Red Blood Cells % 0.1 %; Platelet Count (auto) 232 10^3/uL (140-450); Red Blood Cells 3.28 10^6/uL (4.5-5.90); Red Cell Distribution Width 19.9 % (11.8-14.3)
[2024-03-02 05:46] LABS: Anion Gap 7 (5-15); Carbon Dioxide 30 mmol/L (20-31); Chloride 94 mmol/L (98-107); Potassium 4.8 mmol/L (3.5-5.1); Sodium 131 mmol/L (136-145)
[2024-03-02 05:48] LABS: Calcium 8.5 mg/dL (8.7-10.4)
[2024-03-02 05:53] LABS: BUN/Creatinine Ratio 6.1 (10.0-20.0); Blood Urea Nitrogen 31 mg/dL (9-23); Glucose 129 mg/dL (74-106)
[2024-03-02 07:01] LABS: Base Excess 5.2 mmol/L (-2.0-3.0)
[2024-03-02] MEDS ORDERED: CLINIMIX PER PHARMACY 0 ML IV SCH (11:30)
[2024-03-02] MEDS ORDERED: ACETYLCYSTEINE 10 %(100MG/ML) SOL 4ML NEB SCH (12:00)
[2024-03-02] MEDS: ACETYLCYSTEINE 10 %(100MG/ML) SOL 4ML NEB SCH (14:25)
[2024-03-02] MEDS ORDERED: DEXTROSE (50%) 50ML SYRG IV SCH (15:00)
[2024-03-02] MEDS: ACCU-CHEK COMFORT CURVE STRIP VI SCH (17:53)
[2024-03-02] MEDS: InsuLIN REG 1unit/0.01ml Soln (100units/ml) SC SCH (17:53)
[2024-03-02 18:52] LABS: Hemoglobin 8.3 g/dL (13.5-17.5)
[2024-03-02 18:54] LABS: Hematocrit 26.1 % (41.0-53.0)
[2024-03-02] MEDS: AMINO ACID INFUSION IN D10W 1,000 ML IV SCH (20:06)
[2024-03-02] MEDS ORDERED: PIPERACILLIN-TAZOB 2.25GM 50 ML IV SCH (22:00)
[2024-03-02] MEDS: PIPERACILLIN-TAZOB 3.375GM 100 ML IV SCH (22:01)
[2024-03-03] VITALS (67 sets, daily range): BP systolic 123–192; BP diastolic 33–67; PULSE 49–75; RESP 8–22; TEMP 96.3–98.2; O2SAT 83–100
[2024-03-03 05:31] LABS: Basophils # (auto) 0 10 ^3/uL (0-0.2); Basophils % (auto) 0.9 % (0.0-2.0); Eosinophils # (auto) 0.4 10 ^3/uL (0-0.8); Eosinophils % (auto) 9.1 % (0.0-7.0); Hematocrit 24.9 % (41.0-53.0); Lymphocytes % (auto) 21.9 % (10.0-50.0); Mean Corpuscular Hemoglobin 25.6 pg (28.0-32.0); Mean Corpuscular Volume 80.2 fL (80.0-100.0); Monocytes # (auto) 0.6 10 ^3/uL (0-1.3); Monocytes % (auto) 12.9 % (0.0-12.0); Neutrophils # (auto) 2.5 10 ^3/uL (1.6-8.6); Neutrophils % (auto) 55.2 % (37.0-80.0); Nucleated Red Blood Cells % 0.2 %; Platelet Count (auto) 246 10^3/uL (140-450); Red Blood Cells 3.11 10^6/uL (4.5-5.90); White Blood Cell 4.6 10^3/uL (4.4-10.8)
[2024-03-03 05:35] LABS: Anion Gap 7 (5-15); Carbon Dioxide 29 mmol/L (20-31); Chloride 94 mmol/L (98-107); Potassium 4.5 mmol/L (3.5-5.1); Sodium 130 mmol/L (136-145)
[2024-03-03 05:36] LABS: Calcium 8.3 mg/dL (8.7-10.4); Red Cell Distribution Width 20.4 % (11.8-14.3)
[2024-03-03 05:41] LABS: BUN/Creatinine Ratio 6.8 (10.0-20.0); Glucose 155 mg/dL (74-106)
[2024-03-03 05:43] LABS: Phosphorus 5.9 mg/dL (2.4-5.1)
[2024-03-03 05:52] LABS: Base Excess 2.5 mmol/L (-2.0-3.0)
[2024-03-03 05:57] LABS: Blood Urea Nitrogen 46 mg/dL (9-23)
[2024-03-03] MEDS: SODIUM CHL 0.9% 1000 ML BAG XX ONE (07:00)
[2024-03-03] MEDS: HEPARIN 1,000 UNITS/ml 1ML VIAL IV ONE ×2 (09:30)
[2024-03-03] MEDS: ASPirin 300 MG RECTAL SUPP PR SCH (10:38)
[2024-03-03] MEDS: METOPROLOL TARTRATE 1MG/1ML-5ML VIAL IV ONE (14:35)
[2024-03-03 16:46] LABS: Albumin 3.5 g/dL (3.2-4.8); Alkaline Phosphatase 68 U/L (46-116); Anion Gap 6 (5-15); Aspartate Aminotransferase 12 U/L (13-40); BUN/Creatinine Ratio 6.1 (10.0-20.0); Bilirubin, Total 0.4 mg/dL (0.2-1.0); Calcium 8.6 mg/dL (8.7-10.4); Carbon Dioxide 30 mmol/L (20-31); Chloride 100 mmol/L (98-107); Glucose 130 mg/dL (74-106); Potassium 4.3 mmol/L (3.5-5.1); Total Protein 7.2 g/dL (5.7-8.2)
[2024-03-03 16:52] LABS: Alanine Aminotransferase < 9 U/L (7-40); Blood Urea Nitrogen 26 mg/dL (9-23); Sodium 136 mmol/L (136-145)
[2024-03-03] MEDS: METOPROLOL TARTRATE 1MG/1ML-5ML VIAL IV SCH (22:08)
[2024-03-03] MEDS: EPOETIN ALFA-EPBX 10,000 UNIT/1ML VIAL SC ONE (22:38)
[2024-03-04] VITALS (61 sets, daily range): BP systolic 105–189; BP diastolic 36–97; PULSE 52–70; RESP 10–25; TEMP 97.9–98.7; O2SAT 77–100
[2024-03-04] MEDS: hydrALAZINE HCL 20 MG/ML VL IV ONE (03:00)
[2024-03-04 04:56] LABS: Basophils % (auto) 0.8 % (0.0-2.0); Lymphocytes # (auto) 0.8 10 ^3/uL (0.4-5.4)
[2024-03-04 05:02] LABS: Basophils # (auto) 0.1 10 ^3/uL (0-0.2); Eosinophils # (auto) 0.5 10 ^3/uL (0-0.8); Eosinophils % (auto) 6.8 % (0.0-7.0); Hematocrit 28.9 % (41.0-53.0); Hemoglobin 9.3 g/dL (13.5-17.5); Lymphocytes % (auto) 11.8 % (10.0-50.0); Mean Corpuscular Volume 81.3 fL (80.0-100.0); Monocytes # (auto) 0.5 10 ^3/uL (0-1.3); Monocytes % (auto) 8.1 % (0.0-12.0); Neutrophils # (auto) 4.8 10 ^3/uL (1.6-8.6); Neutrophils % (auto) 72.5 % (37.0-80.0); Platelet Count (auto) 240 10^3/uL (140-450); Red Blood Cells 3.56 10^6/uL (4.5-5.90); Red Cell Distribution Width 20.5 % (11.8-14.3); White Blood Cell 6.7 10^3/uL (4.4-10.8)
[2024-03-04 05:20] LABS: Albumin 3.6 g/dL (3.2-4.8); Alkaline Phosphatase 63 U/L (46-116); Calcium 8.8 mg/dL (8.7-10.4); Carbon Dioxide 27 mmol/L (20-31); Chloride 99 mmol/L (98-107); Glucose 141 mg/dL (74-106)
[2024-03-04 05:21] LABS: Anion Gap 8 (5-15); Aspartate Aminotransferase 16 U/L (13-40); BUN/Creatinine Ratio 6.1 (10.0-20.0); Bilirubin, Total 0.4 mg/dL (0.2-1.0); Blood Urea Nitrogen 32 mg/dL (9-23); Potassium 4.2 mmol/L (3.5-5.1); Sodium 134 mmol/L (136-145); Total Protein 7.1 g/dL (5.7-8.2)
[2024-03-04 05:29] LABS: Alanine Aminotransferase < 9 U/L (7-40)
[2024-03-04] MEDS: METOPROLOL TARTRATE 1MG/1ML-5ML VIAL IV ONE (05:53)
[2024-03-04 10:36] LABS: Hemoglobin 8.3 g/dL (13.5-17.5); Lymphocytes # (auto) 0.7 10 ^3/uL (0.4-5.4); Lymphocytes % (auto) 11.6 % (10.0-50.0); Monocytes # (auto) 0.6 10 ^3/uL (0-1.3); Neutrophils # (auto) 4.5 10 ^3/uL (1.6-8.6)
[2024-03-04 10:38] LABS: Basophils # (auto) 0.1 10 ^3/uL (0-0.2); Eosinophils # (auto) 0.5 10 ^3/uL (0-0.8); Eosinophils % (auto) 7.5 % (0.0-7.0); Hematocrit 25.9 % (41.0-53.0); Mean Corpuscular Hemoglobin 25.7 pg (28.0-32.0); Mean Corpuscular Hgb Conc. 32.1 g/dL (32.0-36.0); Monocytes % (auto) 9.5 % (0.0-12.0); Neutrophils % (auto) 70.4 % (37.0-80.0); Nucleated Red Blood Cells % 0.1 %; Platelet Count (auto) 223 10^3/uL (140-450); Red Blood Cells 3.24 10^6/uL (4.5-5.90); White Blood Cell 6.4 10^3/uL (4.4-10.8)
[2024-03-04 11:02] LABS: Red Cell Distribution Width 20.4 % (11.8-14.3)
[2024-03-04] MEDS: LABETALOL HCL 20 MG/4 ML VL IV PRN (12:11)
[2024-03-04] MEDS: HALOPERIDOL LACTATE 5 MG/ML INJ VIAL IV ONE (13:36)
[2024-03-04] MEDS: LORazepam 2MG/ML-1ML VIAL IM ONE (14:20)
[2024-03-04] MEDS: HALOPERIDOL LACTATE 5 MG/ML INJ VIAL IM ONE (16:00)
[2024-03-04] MEDS: cloNIDine 0.2 mg/24hr 7DAY PATCH TD SCH (17:07)
[2024-03-05] VITALS (47 sets, daily range): BP systolic 139–196; BP diastolic 37–102; PULSE 55–71; RESP 10–27; TEMP 98.1–98.6; O2SAT 92–100
[2024-03-05] MEDS: HALOPERIDOL LACTATE 5 MG/ML INJ VIAL IV PRN (00:01)
[2024-03-05 04:24] LABS: Basophils # (auto) 0 10 ^3/uL (0-0.2); Basophils % (auto) 0.7 % (0.0-2.0); Eosinophils # (auto) 0.3 10 ^3/uL (0-0.8)
[2024-03-05 04:30] LABS: Eosinophils % (auto) 4.6 % (0.0-7.0); Hematocrit 25.1 % (41.0-53.0); Hemoglobin 8.3 g/dL (13.5-17.5); Lymphocytes # (auto) 0.8 10 ^3/uL (0.4-5.4); Lymphocytes % (auto) 12.6 % (10.0-50.0); Mean Corpuscular Hemoglobin 26.5 pg (28.0-32.0); Mean Corpuscular Hgb Conc. 33.1 g/dL (32.0-36.0); Mean Corpuscular Volume 80.3 fL (80.0-100.0); Monocytes # (auto) 0.5 10 ^3/uL (0-1.3); Monocytes % (auto) 7.9 % (0.0-12.0); Neutrophils # (auto) 4.9 10 ^3/uL (1.6-8.6); Neutrophils % (auto) 74.2 % (37.0-80.0); Platelet Count (auto) 218 10^3/uL (140-450); Red Blood Cells 3.12 10^6/uL (4.5-5.90); Red Cell Distribution Width 20.6 % (11.8-14.3); White Blood Cell 6.6 10^3/uL (4.4-10.8)
[2024-03-05 04:39] LABS: Albumin 3.4 g/dL (3.2-4.8); Alkaline Phosphatase 57 U/L (46-116); Anion Gap 9 (5-15); Aspartate Aminotransferase 18 U/L (13-40); Bilirubin, Total 0.3 mg/dL (0.2-1.0); Carbon Dioxide 26 mmol/L (20-31); Chloride 99 mmol/L (98-107); Glucose 86 mg/dL (74-106); Magnesium 2.1 mg/dL (1.6-2.6); Phosphorus 4.8 mg/dL (2.4-5.1); Potassium 4.5 mmol/L (3.5-5.1); Sodium 134 mmol/L (136-145)
[2024-03-05 04:40] LABS: Total Protein 6.9 g/dL (5.7-8.2)
[2024-03-05 04:52] LABS: Alanine Aminotransferase < 9 U/L (7-40); Blood Urea Nitrogen 47 mg/dL (9-23)
[2024-03-05] MEDS: VANCOMYCIN 500 MG in D5W 5% 100 ML IV ONE (09:17)
[2024-03-05] MEDS: CALCIUM GLUC 1,000mg/50ml-NS 50 ML IV ONE (16:05)
[2024-03-06] VITALS (31 sets, daily range): BP systolic 135–185; BP diastolic 44–70; PULSE 52–81; RESP 11–31; TEMP 98.1–98.5; O2SAT 83–100
[2024-03-06 04:58] LABS: Albumin 3.4 g/dL (3.2-4.8); Alkaline Phosphatase 55 U/L (46-116); Anion Gap 11 (5-15); Aspartate Aminotransferase 14 U/L (13-40); BUN/Creatinine Ratio 5.9 (10.0-20.0); Bilirubin, Total 0.3 mg/dL (0.2-1.0); Blood Urea Nitrogen 49 mg/dL (9-23); Calcium 8.8 mg/dL (8.7-10.4); Carbon Dioxide 21 mmol/L (20-31); Chloride 99 mmol/L (98-107); Glucose 134 mg/dL (74-106); Magnesium 2.1 mg/dL (1.6-2.6); Phosphorus 5.7 mg/dL (2.4-5.1); Potassium 4.6 mmol/L (3.5-5.1); Sodium 131 mmol/L (136-145)
[2024-03-06 04:59] LABS: Basophils # (auto) 0 10 ^3/uL (0-0.2); Basophils % (auto) 0.7 % (0.0-2.0); Eosinophils # (auto) 0.2 10 ^3/uL (0-0.8); Eosinophils % (auto) 4.3 % (0.0-7.0); Hematocrit 24.4 % (41.0-53.0); Hemoglobin 7.9 g/dL (13.5-17.5); Lymphocytes # (auto) 0.8 10 ^3/uL (0.4-5.4); Lymphocytes % (auto) 14.6 % (10.0-50.0); Mean Corpuscular Hemoglobin 25.9 pg (28.0-32.0); Mean Corpuscular Hgb Conc. 32.4 g/dL (32.0-36.0); Monocytes # (auto) 0.4 10 ^3/uL (0-1.3); Monocytes % (auto) 7.7 % (0.0-12.0); Neutrophils # (auto) 4.2 10 ^3/uL (1.6-8.6); Neutrophils % (auto) 72.7 % (37.0-80.0); Nucleated Red Blood Cells % 0.3 %; Platelet Count (auto) 229 10^3/uL (140-450); Red Blood Cells 3.05 10^6/uL (4.5-5.90); Total Protein 6.7 g/dL (5.7-8.2); White Blood Cell 5.8 10^3/uL (4.4-10.8)
[2024-03-06 05:00] LABS: Red Cell Distribution Width 20.5 % (11.8-14.3)
[2024-03-06 05:05] LABS: Alanine Aminotransferase < 9 U/L (7-40)
[2024-03-06 05:30] LABS: Anisocytosis Slight; Platelet Estimate Adequate
[2024-03-06] MEDS ORDERED: METOPROLOL TARTRATE 1MG/1ML-5ML VIAL IV PRN (09:30)
[2024-03-06] MEDS ORDERED: ASPirin 81 mg TAB PO SCH (10:00)
[2024-03-06] MEDS: ASPirin 300 MG RECTAL SUPP PR SCH (12:55)
[2024-03-06] MEDS: IRON SUCROSE COMPLEX 100 ML IV SCH (15:17)
[2024-03-06] MEDS: EPOETIN ALFA-EPBX 10,000 UNIT/1ML VIAL SC ONE (20:42)
[2024-03-07] VITALS (45 sets, daily range): BP systolic 143–199; BP diastolic 44–75; PULSE 52–67; RESP 8–21; TEMP 97.2–99.1; O2SAT 88–100
[2024-03-07 05:02] LABS: Basophils # (auto) 0 10 ^3/uL (0-0.2); Basophils % (auto) 0.9 % (0.0-2.0); Eosinophils # (auto) 0.2 10 ^3/uL (0-0.8); Eosinophils % (auto) 5.1 % (0.0-7.0); Hematocrit 25.6 % (41.0-53.0); Hemoglobin 8.2 g/dL (13.5-17.5); Lymphocytes # (auto) 0.7 10 ^3/uL (0.4-5.4); Lymphocytes % (auto) 15.1 % (10.0-50.0); Mean Corpuscular Hemoglobin 25.2 pg (28.0-32.0); Mean Corpuscular Hgb Conc. 31.9 g/dL (32.0-36.0); Monocytes # (auto) 0.6 10 ^3/uL (0-1.3); Neutrophils # (auto) 3.2 10 ^3/uL (1.6-8.6); Neutrophils % (auto) 66.9 % (37.0-80.0); Platelet Count (auto) 229 10^3/uL (140-450); Red Blood Cells 3.24 10^6/uL (4.5-5.90); White Blood Cell 4.8 10^3/uL (4.4-10.8)
[2024-03-07 05:13] LABS: Albumin 3.5 g/dL (3.2-4.8); Alkaline Phosphatase 56 U/L (46-116); Anion Gap 8 (5-15); Aspartate Aminotransferase 10 U/L (13-40); BUN/Creatinine Ratio 4.9 (10.0-20.0); Carbon Dioxide 27 mmol/L (20-31); Chloride 102 mmol/L (98-107); Glucose 86 mg/dL (74-106); Magnesium 2.1 mg/dL (1.6-2.6); Potassium 3.8 mmol/L (3.5-5.1); Sodium 137 mmol/L (136-145)
[2024-03-07 05:14] LABS: Bilirubin, Total 0.3 mg/dL (0.2-1.0); Phosphorus 3.7 mg/dL (2.4-5.1)
[2024-03-07 05:27] LABS: Alanine Aminotransferase < 9 U/L (7-40); Blood Urea Nitrogen 28 mg/dL (9-23)
[2024-03-07] MEDS: hydrALAZINE HCL 20 MG/ML VL IV ONE (15:15)
[2024-03-07] MEDS: hydrALAZINE HCL 20 MG/ML VL IV SCH (18:26)
[2024-03-07] MEDS: VANCOMYCIN 500 MG in D5W 5% 100 ML IV ONE (18:29)
[2024-03-07] MEDS: AMINO ACID INFUSION IN D10W 2,000 ML IV SCH (21:41)
[2024-03-07 22:48] LABS: Folate (Folic Acid) 11.4 ng/mL (>5.38)
[2024-03-08] VITALS (50 sets, daily range): BP systolic 134–204; BP diastolic 41–86; PULSE 51–87; RESP 10–26; TEMP 97.7–98.9; O2SAT 86–100
[2024-03-08 05:23] LABS: Potassium 3.8 mmol/L (3.5-5.1)
[2024-03-08 05:24] LABS: Calcium 9.4 mg/dL (8.7-10.4)
[2024-03-08 05:29] LABS: BUN/Creatinine Ratio 4.9 (10.0-20.0)
[2024-03-08 05:30] LABS: Magnesium 1.9 mg/dL (1.6-2.6)
[2024-03-08 05:31] LABS: Albumin 3.6 g/dL (3.2-4.8); Phosphorus 3.9 mg/dL (2.4-5.1)
[2024-03-08] MEDS: SODIUM CHL 0.9% 1000 ML BAG XX ONE (07:00)
[2024-03-08] MEDS: ACETAMINOPHEN 325 MG TAB PO PRN (09:26)
[2024-03-08] MEDS ORDERED: ARTIFICIAL TEARS 15ml EACHEYE PRN (15:15)
[2024-03-08] MEDS ORDERED: AMINO ACID INFUSION IN D5W 2,000 ML IV SCH (20:00)
[2024-03-08] MEDS: EPOETIN ALFA-EPBX 10,000 UNIT/1ML VIAL SC ONE (23:09)
[2024-03-09] VITALS (11 sets, daily range): BP systolic 139–178; BP diastolic 55–73; PULSE 58–77; RESP 16–17; TEMP 97.7–98.5; O2SAT 93–100
[2024-03-09] MEDS: ASPirin 81 mg TAB PO SCH (11:40)
[2024-03-09] MEDS: NIFEdipine ER 30 MG TAB PO ONE (11:42)
[2024-03-09] MEDS: hydrALAZINE HCL 25 MG TAB PO SCH (14:25)
[2024-03-09 14:58] LABS: Anion Gap 10 (5-15); Carbon Dioxide 25 mmol/L (20-31); Chloride 100 mmol/L (98-107); Potassium 3.7 mmol/L (3.5-5.1); Sodium 135 mmol/L (136-145)
[2024-03-09 14:59] LABS: Calcium 9.8 mg/dL (8.7-10.4)
[2024-03-09 15:04] LABS: Glucose 104 mg/dL (74-106)
[2024-03-09 15:43] LABS: BUN/Creatinine Ratio 4.5 (10.0-20.0); Blood Urea Nitrogen 31 mg/dL (9-23)
[2024-03-09 16:12] LABS: Urine Bacteria None Seen /hpf (None Seen)
[2024-03-09 16:59] LABS: Urine Blood Negative /uL (Negative); Urine Clarity Clear (Clear); Urine Color Light-Yellow (Yellow); Urine Protein, UAD 2+ (Negative); Urine Specific Gravity 1.009 (1.001-1.035); Urine Urobilinogen Normal (Negative); Urine WBC 1 /hpf (0 - 3)
[2024-03-10] VITALS (12 sets, daily range): BP systolic 139–179; BP diastolic 49–96; PULSE 69–84; RESP 16–19; TEMP 97.6–98.3; O2SAT 93–100
[2024-03-10] MEDS: NIFEdipine ER 30 MG TAB PO SCH (09:23)
[2024-03-10] MEDS: MINOXIDIL 2.5 MG TAB PO ONE (12:11)
[2024-03-10] MEDS: SODIUM CHL 0.9% 1000 ML BAG XX ONE (17:30)
[2024-03-10] MEDS: MINOXIDIL 2.5 MG TAB PO SCH (22:21)
[2024-03-10] MEDS: APIXABAN 2.5 MG TAB PO SCH (22:22)
[2024-03-10] MEDS: EPOETIN ALFA-EPBX 10,000 UNIT/1ML VIAL SC ONE (22:24)
[2024-03-11] VITALS (7 sets, daily range): BP systolic 132–181; BP diastolic 59–82; PULSE 67–74; RESP 16–20; TEMP 97.3–98; O2SAT 93–100
[2024-03-11 06:34] LABS: Eosinophils # (auto) 0.3 10 ^3/uL (0-0.8); Hemoglobin 11.6 g/dL (13.5-17.5); Lymphocytes # (auto) 1.2 10 ^3/uL (0.4-5.4); Monocytes # (auto) 0.7 10 ^3/uL (0-1.3); Neutrophils # (auto) 3.8 10 ^3/uL (1.6-8.6); White Blood Cell 6.1 10^3/uL (4.4-10.8)
[2024-03-11 06:38] LABS: Basophils # (auto) 0.1 10 ^3/uL (0-0.2); Basophils % (auto) 1.2 % (0.0-2.0); Eosinophils % (auto) 5.6 % (0.0-7.0); Hematocrit 36.5 % (41.0-53.0); Lymphocytes % (auto) 19.5 % (10.0-50.0); Mean Corpuscular Hemoglobin 26.1 pg (28.0-32.0); Mean Corpuscular Hgb Conc. 31.9 g/dL (32.0-36.0); Mean Corpuscular Volume 81.9 fL (80.0-100.0); Monocytes % (auto) 11.1 % (0.0-12.0); Neutrophils % (auto) 62.6 % (37.0-80.0); Nucleated Red Blood Cells % 0.3 %; Platelet Count (auto) 252 10^3/uL (140-450); Red Blood Cells 4.46 10^6/uL (4.5-5.90); Red Cell Distribution Width 22.3 % (11.8-14.3)
[2024-03-11 06:47] LABS: Chloride 100 mmol/L (98-107); Potassium 3.9 mmol/L (3.5-5.1); Sodium 135 mmol/L (136-145)
[2024-03-11 06:48] LABS: Calcium 9.9 mg/dL (8.7-10.4)
[2024-03-11 06:52] LABS: Glucose 87 mg/dL (74-106)
[2024-03-11 06:53] LABS: Anion Gap 13 (5-15); BUN/Creatinine Ratio 3.7 (10.0-20.0); Blood Urea Nitrogen 26 mg/dL (9-23); Carbon Dioxide 22 mmol/L (20-31)
== END 2024-03-11 18:30 | disposition home health service (06) | DRG 208 ==
LOC: EDBD 12:51 → ER 12:51 → TELE 22:04 → TELE-CENTR 23:51 → DOU IN ICU 02-17 05:27 → ICU CENTRL 02-17 05:28 → ICU WEST 02-19 03:48 → TELE-WESTW 02-22 09:06 → DOU IN ICU 02-29 17:42 → ICU CENTRL 03-01 01:05 → ICU WEST 03-03 06:08 → DOU IN ICU 03-06 22:28 → TELE-WESTW 03-08 16:09
PROVIDERS: ADMIT Internal Medicine; ATTEND Internal Medicine Geriatric Medicine
PROC: 5A1945Z Respiratory Ventilation, 24-96 Consecutive Hours (ICD-10-PCS; principal; 2024-02-16)
PROC: 0BH17EZ Insertion of Endotracheal Airway into Trachea, Via Natural or Artificial Opening (ICD-10-PCS; 2024-02-16)
PROC: 5A1D70Z Performance of Urinary Filtration, Intermittent, Less than 6 Hours Per Day (ICD-10-PCS; 2024-02-17)
PROC: 02HV33Z Insertion of Infusion Device into Superior Vena Cava, Percutaneous Approach (ICD-10-PCS; 2024-02-18)
PROC: B548ZZA Ultrasonography of Superior Vena Cava, Guidance (ICD-10-PCS; 2024-02-18)
PROC: 4B02XSZ Measurement of Cardiac Pacemaker, External Approach (ICD-10-PCS; 2024-02-19)
PROC: 5A1D70Z Performance of Urinary Filtration, Intermittent, Less than 6 Hours Per Day (ICD-10-PCS; 2024-02-19)
PROC: 5A1D70Z Performance of Urinary Filtration, Intermittent, Less than 6 Hours Per Day (ICD-10-PCS; 2024-02-20)
PROC: 5A1D70Z Performance of Urinary Filtration, Intermittent, Less than 6 Hours Per Day (ICD-10-PCS; 2024-02-22)
PROC: 5A1D70Z Performance of Urinary Filtration, Intermittent, Less than 6 Hours Per Day (ICD-10-PCS; 2024-02-24)
PROC: 5A1D70Z Performance of Urinary Filtration, Intermittent, Less than 6 Hours Per Day (ICD-10-PCS; 2024-02-26)
PROC: 5A1D70Z Performance of Urinary Filtration, Intermittent, Less than 6 Hours Per Day (ICD-10-PCS; 2024-02-28)
PROC: 06HY33Z Insertion of Infusion Device into Lower Vein, Percutaneous Approach (ICD-10-PCS; 2024-02-29)
PROC: 0BH17EZ Insertion of Endotracheal Airway into Trachea, Via Natural or Artificial Opening (ICD-10-PCS; 2024-02-29)
PROC: 5A12012 Performance of Cardiac Output, Single, Manual (ICD-10-PCS; 2024-02-29)
PROC: 30233N1 Transfusion of Nonautologous Red Blood Cells into Peripheral Vein, Percutaneous Approach (ICD-10-PCS; 2024-02-29)
PROC: 5A1945Z Respiratory Ventilation, 24-96 Consecutive Hours (ICD-10-PCS; 2024-03-01)
PROC: 0DB98ZX Excision of Duodenum, Via Natural or Artificial Opening Endoscopic, Diagnostic (ICD-10-PCS; 2024-03-01)
PROC: 0DB68ZX Excision of Stomach, Via Natural or Artificial Opening Endoscopic, Diagnostic (ICD-10-PCS; 2024-03-01)
PROC: 30233K1 Transfusion of Nonautologous Frozen Plasma into Peripheral Vein, Percutaneous Approach (ICD-10-PCS; 2024-03-01)
PROC: 5A1D70Z Performance of Urinary Filtration, Intermittent, Less than 6 Hours Per Day (ICD-10-PCS; 2024-03-01)
PROC: 5A1D70Z Performance of Urinary Filtration, Intermittent, Less than 6 Hours Per Day (ICD-10-PCS; 2024-03-03)
PROC: 5A1D70Z Performance of Urinary Filtration, Intermittent, Less than 6 Hours Per Day (ICD-10-PCS; 2024-03-06)
PROC: 5A1D70Z Performance of Urinary Filtration, Intermittent, Less than 6 Hours Per Day (ICD-10-PCS; 2024-03-08)
PROC: 05HA33Z Insertion of Infusion Device into Left Brachial Vein, Percutaneous Approach (ICD-10-PCS; 2024-03-10)
PROC: B54NZZA Ultrasonography of Left Upper Extremity Veins, Guidance (ICD-10-PCS; 2024-03-10)
DX: J96.01 Acute respiratory failure with hypoxia (principal); G93.41 Metabolic encephalopathy; J18.9 Pneumonia, unspecified organism; N18.6 End stage renal disease; I46.9 Cardiac arrest, cause unspecified; K29.71 Gastritis, unspecified, with bleeding; K29.81 Duodenitis with bleeding; K26.4 Chronic or unspecified duodenal ulcer with hemorrhage; I50.43 Acute on chronic combined systolic (congestive) and diastolic (congestive) heart failure; I13.2 Hypertensive heart and chronic kidney disease with heart failure and with stage 5 chronic kidney disease, or end stage renal disease; N25.81 Secondary hyperparathyroidism of renal origin; I16.9 Hypertensive crisis, unspecified; I82.C11 Acute embolism and thrombosis of right internal jugular vein; E87.1 Hypo-osmolality and hyponatremia; G93.1 Anoxic brain damage, not elsewhere classified; E87.3 Alkalosis; I31.39 Other pericardial effusion (noninflammatory); J44.0 Chronic obstructive pulmonary disease with (acute) lower respiratory infection; I82.B11 Acute embolism and thrombosis of right subclavian vein; J96.12 Chronic respiratory failure with hypercapnia; D63.1 Anemia in chronic kidney disease; Z20.822 Contact with and (suspected) exposure to COVID-19; E11.22 Type 2 diabetes mellitus with diabetic chronic kidney disease; I25.10 Atherosclerotic heart disease of native coronary artery without angina pectoris; I07.1 Rheumatic tricuspid insufficiency; E86.1 Hypovolemia; F10.10 Alcohol abuse, uncomplicated; I35.1 Nonrheumatic aortic (valve) insufficiency; I70.0 Atherosclerosis of aorta; I95.3 Hypotension of hemodialysis; N28.1 Cyst of kidney, acquired; I27.22 Pulmonary hypertension due to left heart disease; R13.10 Dysphagia, unspecified; Z86.73 Personal history of transient ischemic attack (TIA), and cerebral infarction without residual deficits; Z99.2 Dependence on renal dialysis; Z79.01 Long term (current) use of anticoagulants; Z79.82 Long term (current) use of aspirin; Z79.899 Other long term (current) drug therapy; Z95.5 Presence of coronary angioplasty implant and graft; Z79.4 Long term (current) use of insulin; Z83.3 Family history of diabetes mellitus; Z82.49 Family history of ischemic heart disease and other diseases of the circulatory system; Z82.3 Family history of stroke; Z82.0 Family history of epilepsy and other diseases of the nervous system; Z95.0 Presence of cardiac pacemaker; Y90.9 Presence of alcohol in blood, level not specified; E87.70 Fluid overload, unspecified
CPT/HCPCS: 36415; 36600; 70450; 71045; 71275; 76705; 80048; 80053; 80069; 80074; 80202; 81001; 81241; 82140; 82607; 82746; 82805; 82962; 83605; 83735; 83880; 84100; 84443; 84478; 84484; 85014; 85018; 85025; 85301; 85379; 85610; 85730; 86706; 86850; 86900; 86901; 86920; 87040; 87070; 87081; 87086; 87205; 87340; 87426; 90935; 92507; 92610; 92950; 93005; 93306; 93970; 94002; 94003; 94640; 97110; 97116; 97163; 97530; G0378; J0171; J0330; J1642; J1756; J1815; J2185; J2250; J2405; J2470; J2543; J3490; J7060

== ENCOUNTER 2024-04-21 06:04 | Inpatient (IN) | payer OTHER, MEDICAID ==
[~2024-04-21] VITALS: Ht 167.6 cm; Wt 64.5 kg
[~2024-04-21 06:04] MED LIST changes: -CLIN150C PO; -CLON0.2D6 TOP; -METO25TA93 PO
--- NOTE | 2024-04-21 06:22 | ED.PDOC ---
SOB-HPI HPI Comments A 78 year old male brought in by EMS presents to the ED with a chief complaint of shortness of breath onset last night. Per EMS, patient removed his CPAP machine, gave him a breathing treatment and upon EMS arrival O2 sat was 90% on RA. Patient was placed on 6L and O2 sat is 96%. Patient states he has been experiencing chest pain since last night. Patient had dialysis yesterday. Denies nausea, vomiting, diarrhea, constipation. He has a past medical history of CHF, COPD, HTN, DM, ESRD, Dementia. No other symptoms or modifying factors present at this time. Chief Complaint: Shortness of Breath Time Seen by MD: 06:05 Primary Care Provider: UNKNOWN Reviewed notes: Medications, Allergies Information Source: Patient, Emergency Med Personnel Mode of Arrival: EMS Severity: Moderate Duration: Since onset History of: COPD, CHF Prehospital treatment: Oxygen Associated Signs and Symptoms: Chest Pain Past Medical History PAST MEDICAL HISTORY: CHF, COPD, Dementia, DM, ESRD, HTN Surgical History: Hernia Repair, Pacemaker, Tonsillectomy Family History Family History: Reviewed,noncontributory to illness, Unknown Social History Smoker: Quit Greater Than 1 Year Alcohol: Sober Drugs: Denies Drug Use Lives In: Assisted Care, [facility] Constitutional: denies: chills, diaphoresis, fatigue, fever, malaise, sweats, weakness, others EENTM: denies: blurred vision, double vision, ear bleeding, ear discharge, ear drainage, ear pain, ear ringing, eye pain, eye redness, hearing loss, mouth pain, mouth swelling, nasal discharge, nose bleeding, nose congestion, nose pain, photophobia, tearing, throat pain, throat swelling, voice changes, others Respiratory: denies: cough, hemoptysis, orthopnea, SOB at rest, shortness of breath, SOB with excertion, stridor, wheezing, others Cardiovascular: denies: chest pain, dizzy spells, diaphoresis, Dyspnea on exe rtion, edema, irregular heart beat, left arm pain, lightheadedness, palpitations, PND, syncope, others Gastrointestinal: denies: abdomen distended, abdominal pain, blood streaked bowels, constipated, diarrhea, dysphagia, difficulty swallowing, hematemesis, melena, nausea, poor appetite, poor fluid intake, rectal bleeding, rectal pain, vomiting, others Genitourinary: denies: burning, dysuria, flank pain, frequency, hematuria, incontinence, penile discharge, penile sore, pain, testicle pain, testicle swelling, urgency, others Neurological: denies: dizziness, fainting, headache, left sided numbness, left sided weakness, numbness, paresthesia, pre-existing deficit, right sided numbness, right sided weakness, seizure, speech problems, tingling, tremors, weakness, others Musculoskeletal: denies: back pain, gout, joint pain, joint swelling, muscle pain, muscle stiffness, neck pain, others Integumetry: denies: bruises, change in color, change in hair/nails, dryness, laceration, lesions, lumps, rash, wounds, others Allergic/Immunocompromised: denies: Difficulty Healing, Frequent Infections, Hives, Itching, others Hematologic/Lymphatic: denies: anemia, blood clots, easy bleeding, easy bruising, swollen glands, others Endocrine: denies: excessive hunger, excessive sweating, excessive thirst, excessive urination, flushing, intolerance to cold, intolerance to heat, unexplained weight gain, unexplained weight loss, others Psychiatric: denies: anxiety, bipolar disorder, depression, hopeless, panic disorder, schizophrenia, sleepless, suicidal, others All Other Systems: Reviewed and Negative Physical Exam General Appearance: No Apparent Distress, Normal HEENT: Normal ENT Inspection, Pharynx Normal, TMs Normal Neck: Full Range of Motion, Non-Tender, Normal, Normal Inspection Respiratory: Chest Non-Tender, Lungs Clear, No Accessory Muscle Use, No Respiratory Distress, Normal Breath Sounds Cardiovascular: No Edema, No JVD, No Murmur, No Gallop, Normal Peripheral Pulses, Regular Rate/Rhythm Breast Exam: Deferred Gastrointestinal: No Organomegaly, Non Tender, No Pulsatile Mass, Normal Bowel Sounds, Soft Genitalia: Deferred Pelvic: Deferred Rectal: Deferred Extremities: No calf tenderness, Normal capillary refill, Normal inspection, Normal range of motion, Non-tender, No pedal edema Musculoskeletal : Apperance: Normal Neurologic: Alert, supervisor mixing II-XII nml as Tested, No Motor Deficits, Normal Affect, Normal Mood, No Sensory Deficits Cerebellar Function: Normal Reflexes: Normal Skin: Dry, Normal Color, Warm Lymphatic: No Adenopathy Was a procedure done? Was a procedure done?: No Differential Dx Differential Diagnosis: CHF, COPD, Hypertension, Hyperventilation, Hyponatremia, Pneumonia, URI X-Ray, Labs, Meds, VS Vital Signs Date Time Temp Pulse Resp B/P (MAP) Pulse Ox O2 Delivery O2 Flow Rate FiO2 04/21/24 06:40 98.1 75 22 162/72 (102) 96 98.1 04/21/24 06:29 79 04/21/24 06:08 98.8 80 17 161/77 (105) 96 Lab Test 04/21/24 06:20 Range/Units White Blood Count 5.2 4.4-10.8 10^3/uL Red Blood Count 2.96 L 4.5-5.90 10^6/uL Hemoglobin 8.5 L 13.5-17.5 g/dL Hematocrit 25.7 L 41.0-53.0 % Mean Corpuscular Volume 86.9 80.0-100.0 fL Mean Corpuscular Hemoglobin 28.6 28.0-32.0 pg Mean Corpuscular Hemoglobin Concent 32.9 32.0-36.0 g/dL Red Cell Distribution Width 24.7 H 11.8-14.3 % Platelet Count 187 140-450 10^3/uL Mean Platelet Volume 6.6 L 6.9-10.8 fL Neutrophils (%) (Auto) 64.6 37.0-80.0 % Lymphocytes (%) (Auto) 17.1 10.0-50.0 % Monocytes (%) (Auto) 13.8 H 0.0-12.0 % Eosinophils (%) (Auto) 3.9 0.0-7.0 % Basophils (%) (Auto) 0.6 0.0-2.0 % Neutrophils # (Auto) 3.3 1.6-8.6 10 ^3/uL Lymphocytes # (Auto) 0.9 0.4-5.4 10 ^3/uL Monocytes # (Auto) 0.7 0-1.3 10 ^3/uL Eosinophils # (Auto) 0.2 0-0.8 10 ^3/uL Basophils # (Auto) 0 0-0.2 10 ^3/uL Nucleated Red Blood Cells 0.1 % Sodium Level 137 136-145 mmol/L Potassium Level 4.8 3.5-5.1 mmol/L Chloride Level 96 L 98-107 mmol/L Carbon Dioxide Level 34 H 20-31 mmol/L Anion Gap 7 5-15 Blood Urea Nitrogen 26 H 9-23 mg/dL Creatinine 4.95 H 0.700-1.30 mg/dL Glomerular Filtration Rate Calc 11 >90 mL/min BUN/Creatinine Ratio 5.3 L 10.0-20.0 Serum Glucose 94 74-106 mg/dL Calcium Level 9.5 8.7-10.4 mg/dL Phosphorus Level 2.5 2.4-5.1 mg/dL Magnesium Level 1.8 1.6-2.6 mg/dL Troponin I High Sensitivity 152 *H </=54 ng/L [place] [address] Ph: [phone] DIAGNOSTIC IMAGING Diagnostic Imaging Report : [id number] Signed PATIENT: LIZBETH LU ACCT: [id number] UNIT: [id number] : 1945 LOC: ER ROOM / BED: / AGE / SEX: 78 / M ADM STATUS: REG ER SERVICE 6 ORDERING PHYSICIAN: MICHAEL SÁNCHEZ MD PROCEDURE(s): CXRP - CHEST PORTABLE REASON: sob ORDER NUMBER(s): [id number], ACCESSION NUMBER(s): [id number] CHEST RADIOGRAPH Indication: sob Technique: Single frontal view of the chest was obtained Comparison: XY CHEST XRAY 1 VIEW on DOS: 03/09/24, XY CHEST PORTABLE on DOS: 03/06/24, XY CHEST PORTABLE on DOS: 03/05/24 IMPRESSION: The heart is enlarged. Prominent bilateral interstitial markings and patchy airspace opacity in the right lower lung. Possible small right pleural effusion. No pneumothorax. Dialysis catheter in the region of the superior vena cava. No significant interval change. ATED BY: CHIP BERGMAN MD DICTATED DATE/TIME: 04/21/24650 SIGNED BY: CHIP BERGMAN MD SIGNED DATE/TIME: 04/21/24650 CC: Time of 1ST Reevaluation: 06:35 Reevaluation 1ST: Improved Patient Education/Counseling: Diagnosis, Treatment Family Education/Counseling: No Family Present Departure 1 Departure Time of Disposition: 07:42 (Patient with worsening shortness of breath concerning for possible sepsis secondary to pneumonia. Patient's dialysis patient is also volume overloaded and we will not give the fluid bolus at this time. We will empirically cover patient with antibiotics and admit patient for further workup.) Impression: Primary Impression: Pneumonia Qualified Codes: J18.9 - Pneumonia, unspecified organism Additional Impressions: Dyspnea Qualified Codes: R06.03 - Acute respiratory distress ESRD needing dialysis Disposition: ADMITTED INPATIENT Admit to: Med Surg Condition: Serious Critical Care Note Critical Care Time?: Yes Critical care comment: Acute shortness of breath Authorized and Performed by: Michael Sánchez MD Total critical care time: Approximately 32 minutes Due to a high probability of clinically significant, life threatening deterioration, the patient required my highest level of preparedness to intervene emergently and I personally spent this critical care time directly and personally managing the patient. This critical care time included obtaining a history; examining the patient; pulse oximetry; ordering and review of studies; arranging urgent treatment with development of a management plan; evaluation of patient's response to treatment; frequent reassessment; and, discussions with other providers. This critical care time was performed to assess and manage the high probability of imminent, life-threatening deterioration that could result in multi-organ failure. It was exclusive of separately billable procedures and treating other patients and teaching time. Please see my other sections and the rest of the note for further information on patient assessment and treatment. Stability Stability form required: No Heart Score Heart Score: Heart Score Response (Comments) Value History Slightly Suspicious 0 EKG Repolarization Disturb 1 Age >65 2 Risk Factors >3 or Hx ASHD 2 Troponin >3 x's Normal limit 2 Total 7 I personally scribed for MICHAEL SÁNCHEZ MD ([email or web address]) on 04/21/24 at 06:22. Electronically submitted by Eboni Hamilton ([email or web address]). I personally scribed for MICHAEL SÁNCHEZ MD ([email or web address]) on 04/21/24 at 06:29. Electronically submitted by Eboni Hamilton ([email or web address]). I personally scribed for MICHAEL SÁNCHEZ MD ([email or web address]) on 04/21/24 at 06:55. Electronically submitted by Eboni Hamilton ([email or web address]). MICHAEL SÁNCHEZ MD Apr 21, 2024 06:22
[2024-04-21 06:27] LABS: Basophils # (auto) 0 10 ^3/uL (0-0.2); Basophils % (auto) 0.6 % (0.0-2.0); Eosinophils # (auto) 0.2 10 ^3/uL (0-0.8); Eosinophils % (auto) 3.9 % (0.0-7.0); Hematocrit 25.7 % (41.0-53.0); Hemoglobin 8.5 g/dL (13.5-17.5); Lymphocytes # (auto) 0.9 10 ^3/uL (0.4-5.4); Lymphocytes % (auto) 17.1 % (10.0-50.0); Mean Corpuscular Hemoglobin 28.6 pg (28.0-32.0); Mean Corpuscular Hgb Conc. 32.9 g/dL (32.0-36.0); Mean Corpuscular Volume 86.9 fL (80.0-100.0); Monocytes # (auto) 0.7 10 ^3/uL (0-1.3); Monocytes % (auto) 13.8 % (0.0-12.0); Neutrophils # (auto) 3.3 10 ^3/uL (1.6-8.6); Neutrophils % (auto) 64.6 % (37.0-80.0); Nucleated Red Blood Cells % 0.1 %; Platelet Count (auto) 187 10^3/uL (140-450); Red Blood Cells 2.96 10^6/uL (4.5-5.90); Red Cell Distribution Width 24.7 % (11.8-14.3); White Blood Cell 5.2 10^3/uL (4.4-10.8)
[2024-04-21 06:37] LABS: Potassium 4.8 mmol/L (3.5-5.1); Sodium 137 mmol/L (136-145)
[2024-04-21 06:38] LABS: Anion Gap 7 (5-15)
[2024-04-21 06:39] LABS: Calcium 9.5 mg/dL (8.7-10.4)
[2024-04-21 06:43] LABS: Glucose 94 mg/dL (74-106)
[2024-04-21 06:44] LABS: BUN/Creatinine Ratio 5.3 (10.0-20.0); Magnesium 1.8 mg/dL (1.6-2.6)
[2024-04-21 06:46] LABS: Blood Urea Nitrogen 26 mg/dL (9-23); Carbon Dioxide 34 mmol/L (20-31); Chloride 96 mmol/L (98-107); Phosphorus 2.5 mg/dL (2.4-5.1)
--- NOTE | 2024-04-21 06:52 | DVH ---
CHEST RADIOGRAPH Indication: sob Technique: Single frontal view of the chest was obtained Comparison: XY CHEST XRAY 1 VIEW on DOS: 03/09/24, XY CHEST PORTABLE on DOS: 03/06/24, XY CHEST BERTHA BLE on DOS: 03/05/24 IMPRESSION: The heart is enlarged. Prominent bilateral interstitial markings and patchy airspace opacity in the r ight lower lung. Possible small right pleural effusion. No pneumothorax. Dialysis catheter in the re gion of the superior vena cava. No significant interval change.
[2024-04-21] MEDS: CEFEPIME 2GM/50ML NS 50 ML IV ONE (07:45)
[2024-04-21] MEDS: VANCOMYCIN 1GM/250ML KIT 200 ML IV ONE (07:45)
[2024-04-21] MEDS: AZITHROMYCIN 250 MG TAB PO ONE (08:11)
[2024-04-21] MEDS ORDERED: NITROGLYCERIN 0.4 MG SL TAB SL PRN (08:45)
[2024-04-21] MEDS ORDERED: ONDANSETRON HCL 4 MG/2 ML VIAL IV PRN (08:45)
[2024-04-21] MEDS: CLOPIDOGREL BISULFATE 75 MG TAB PO ONE (09:00)
[2024-04-21 09:45] VITALS: PULSE 81; RESP 18; O2SAT 97
[2024-04-21] MEDS: DULoxetine HCL 30 MG CAP PO SCH (09:57)
[2024-04-21] MEDS: ASPirin 81 mg TAB PO SCH (09:57)
[2024-04-21] MEDS: NIFEdipine ER 30 MG TAB PO SCH (09:57)
[2024-04-21] MEDS: MINOXIDIL 2.5 MG TAB PO SCH (09:57)
[2024-04-21] MEDS: buPROPion HCL 75 MG TAB PO SCH (09:58)
[2024-04-21] MEDS: PANTOPRAZOLE 40 MG TAB PO SCH (09:58)
[2024-04-21] MEDS: ENOXAPARIN SOD 30 MG/0.3 ML SYRINGE SC SCH (09:58)
[2024-04-21] MEDS ORDERED: ENOXAPARIN SOD 40 MG/0.4 ML SYRINGE SC SCH (10:00)
[2024-04-21 10:40] LABS: Base Excess 7.3 mmol/L (-2.0-3.0)
--- NOTE | 2024-04-21 10:49 | DVHHP2 ---
History of Present Illness History of Present Illness 78M w PMHx COPD, CHF, ESRD on DH TTS, T2DM, hx DVT, CAD sp PCI, in ED by own vehicle with ex- (also desk editor/POAdamian) with CC of SOB. Patient has been more confused for the past few days. at night ex- tried to put on his CPAP but patient remained SOB and confused. brought in by ex-. he appears to be hallucinating, SOB, confused. partner endorses he has had a productive- sounding cough but has not produced any sputum. He has been requiring more oxygen and still unable to keep saturations above 88. denies f/c, n/v, d/c, abdomina pain, chest pain, rashes, sick contacts. Note patient was recently admitted [facility] for DVT right upper extremity and for GI bleed. During this admission patient was intubated. On discharge patient was continued on aspirin 81 and low-dose Eliquis b.i.d.. Review of Systems Review of Systems as HPI Allergies: Coded Allergies: Lisinopril (Verified Adverse Reaction, Severe, ANGIOEDEMA, 09/23/23) FACE,TONGUE, LIP SWELLING Medications Current Medications Medications Dose Ordered Sig/Nereyda Route Start Time Stop Time Status Last Admin Dose Admin Acetaminophen/ Hydrocodone Bitart 1 tab Q4HP PRN PO 04/21/24 08:45 Ondansetron HCl 4 mg Q4HP PRN IV 04/21/24 08:45 Acetaminophen 650 mg Q6HP PRN PO 04/21/24 08:45 Nitroglycerin 0.4 mg Q5MINP PRN SL 04/21/24 08:45 Bupropion HCl 75 mg BID PO 04/21/24 10:00 04/21/24 09:58 75 MG Duloxetine HCl 30 mg DAILY PO 04/21/24 10:00 04/21/24 09:57 30 MG Minoxidil 2.5 mg BID PO 04/21/24 10:00 04/21/24 09:57 2.5 MG Nifedipine 60 mg BID PO 04/21/24 10:00 04/21/24 09:57 60 MG Pantoprazole Sodium 40 mg DAILY PO 04/21/24 10:00 04/21/24 09:58 40 MG Aspirin 81 mg DAILY PO 04/21/24 10:00 04/21/24 09:57 81 MG Atorvastatin Calcium 40 mg HS PO 04/21/24 22:00 Hydralazine HCl 50 mg QID PO 04/21/24 12:00 Enoxaparin Sodium 30 mg DAILY SC 04/21/24 10:00 04/21/24 09:58 30 MG Exam Vital Signs Vital Signs Date Time Temp Pulse Resp B/P (MAP) Pulse Ox O2 Delivery O2 Flow Rate FiO2 04/21/24 09:57 155/74 04/21/24 09:45 81 18 97 Nasal Cannula* 4 36 04/21/24 06:40 98.1 98.1 Exam GEN: Healthy appearing, well-developed, NAD. A&O x1 confused but alert HEENT: NC/AT; MMM. CV: Systolic murmur LUNGS: rales upto upper lungs ABD: Soft, NT/ND, NBS, no masses or organomegaly. EXT: skin Warm, well perfused. no rashes. no Pitting edema NEURO: No focal deficits.A&O x1 confused but alert Labs/Xrays Labs Test 04/21/24 09:15 04/21/24 08:23 04/21/24 06:20 Range/Units Troponin I High Sensitivity 147 *H </=54 ng/L Lactic Acid Level 0.7 0.4-2.0 mmol/L White Blood Count 5.2 4.4-10.8 10^3/uL Red Blood Count 2.96 L 4.5-5.90 10^6/uL Hemoglobin 8.5 L 13.5-17.5 g/dL Hematocrit 25.7 L 41.0-53.0 % Mean Corpuscular Volume 86.9 80.0-100.0 fL Mean Corpuscular Hemoglobin 28.6 28.0-32.0 pg Mean Corpuscular Hemoglobin Concent 32.9 32.0-36.0 g/dL Red Cell Distribution Width 24.7 H 11.8-14.3 % Platelet Count 187 140-450 10^3/uL Mean Platelet Volume 6.6 L 6.9-10.8 fL Neutrophils (%) (Auto) 64.6 37.0-80.0 % Lymphocytes (%) (Auto) 17.1 10.0-50.0 % Monocytes (%) (Auto) 13.8 H 0.0-12.0 % Eosinophils (%) (Auto) 3.9 0.0-7.0 % Basophils (%) (Auto) 0.6 0.0-2.0 % Neutrophils # (Auto) 3.3 1.6-8.6 10 ^3/uL Lymphocytes # (Auto) 0.9 0.4-5.4 10 ^3/uL Monocytes # (Auto) 0.7 0-1.3 10 ^3/uL Eosinophils # (Auto) 0.2 0-0.8 10 ^3/uL Basophils # (Auto) 0 0-0.2 10 ^3/uL Nucleated Red Blood Cells 0.1 % Sodium Level 137 136-145 mmol/L Potassium Level 4.8 3.5-5.1 mmol/L Chloride Level 96 L 98-107 mmol/L Carbon Dioxide Level 34 H 20-31 mmol/L Anion Gap 7 5-15 Blood Urea Nitrogen 26 H 9-23 mg/dL Creatinine 4.95 H 0.700-1.30 mg/dL Glomerular Filtration Rate Calc 11 >90 mL/min BUN/Creatinine Ratio 5.3 L 10.0-20.0 Serum Glucose 94 74-106 mg/dL Calcium Level 9.5 8.7-10.4 mg/dL Phosphorus Level 2.5 2.4-5.1 mg/dL Magnesium Level 1.8 1.6-2.6 mg/dL Assessment/Plan Assessment/Plan #Acute hypoxic respiratory failure # acute encephalopathy, metabolic likely #Pulmonary edema #ESRD on HD TTS #Pneumonia likely #hx CHF #History of COPD # PE, rule out --patient has been having increased cough, shortness of breath, worsening oxygen requirement above home level. Worsening confusion -On chest x-ray diffuse pulmonary edema. -Patient does get hypotensive with HD sessions which are usually stops early. This is likely volume overload pulmonary edema - PE remains a concern. Patient with recent DVT. We will continue his home Eliquis. -Nephrology consulted. Attempts made to contact [facility] provider, patient needs HD today and per schedule. - p.r.nDana kam nebs - recent hospital visit, needs broad-spectrum, vanc/cefepime -Nasal cannula oxygen, maintain saturations 88-92% -pending ABG, NH4 #Diabetes-a.c. HS Accu-Cheks, mild SSI # anxiety/depression continue home meds # hypertension continue home meds hydralazine, minoxidil, Procardia #Coronary artery disease, status post PCI -? on DAPT- per last discharge patient was only on aspirin and Eliquis but at home back on DAPT? 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 #hx GI Bleed - hemoglobin stable no concerns currently Diet NPO (patient is altered) DVT prophylaxis Lovenox GI prophylaxis - IV Protonix 40 daily Med tele Plan discussed with: Patient My Orders Orders - SILVIA HANKS MD Procedure Category Date Status Time Admit ADMIT 04/21/24 Transmitted 08:44 Code Status CODE 04/21/24 Transmitted 08:44 Hydrocodone-Acet PHA 04/21/24 In Process 5/325mg Tab (Fraser 08:45 Ondansetron Hcl PHA 04/21/24 In Process (Zofran) 08:45 Fall Risk Precautions SHAYLA 04/21/[address] 08:44 Complete Blood Count LAB 04/22/24 Verified 04:00 Comprehensive LAB 04/22/24 Verified Metabolic Panel 04:00 Npo (Nothing By DIET 04/21/24 Transmitted Mouth) Diet Breakfast Acetaminophen Tablet PHA 04/21/24 In Process (Tylenol Tablet) 08:45 Stat Ekg For Chest SHAYLA 04/21/24 In Process Pain 08:44 Notify Of Changes [facility] 04/21/24 In Process From Base 08:44 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 [facility] 04/21/24 In Process 24 Hours 08:44 Emergency Dysrhythmia [facility] 04/21/24 In Process Protocol 08:44 Rhythm Strips Once [facility] 04/21/24 In Process Every Shift 08:44 Oxygen By Nasal RT 04/21/24 Transmitted Cannula 08:44 Nitroglycerin PHA 04/21/24 In Process Sublingual (Ntrostat 08:45 Bupropion Tablet PHA 04/21/24 In Process (Wellbutrin Tablet) 10:00 Duloxetine Hcl PHA 04/21/24 In Process Capsule (Cymbalta 10:00 Minoxidil Tablet PHA 04/21/24 In Process (Loniten Tablet) 10:00 Nifedipine Er PHA 04/21/24 In Process (Procardia Xl 10:00 Pantoprazole Tablet PHA 04/21/24 In Process (Protonix Tablet) 10:00 Aspirin Tablet PHA 04/21/24 In Process 10:00 Atorvastatin (Lipitor) PHA 04/21/24 In Process 22:00 Hydralazine Hcl PHA 04/21/24 In Process Tablet (Apresoline 12:00 *Dr. Mariela Canela -Da CONS 04/21/24 Transmitted Aaliyah 09:10 Enoxaparin Sodium PHA 04/21/24 In Process (Lovenox) 10:00 Abg W/ Co-Ox RT 04/21/24 Logged 09:34 Ammonia LAB 04/21/24 Transmitted 10:24 Bladder Scan ED NURSING 04/21/24 Transmitted Date of Service: Apr 21, 2024 Billing Provider: SILVIA HANKS MD Common Visit Codes: [id number] INP/OBS CARE (HIGH) SILVIA HANKS MD Apr 21, 2024 10:49
[2024-04-21] MEDS ORDERED: VANCOMYCIN PER PHARMACY 0 MG IV SCH (11:00)
[2024-04-21] MEDS: hydrALAZINE HCL 25 MG TAB PO SCH (12:00)
[2024-04-21 16:32] VITALS: BP 143/68; PULSE 85; RESP 18; TEMP 98.8; O2SAT 92
[2024-04-21 20:00] VITALS: PULSE 81; PULSE 86; RESP 17; O2SAT 95
[2024-04-21] MEDS: HYDROcodone-ACET 5/325MG TAB PO PRN (20:26)
[2024-04-21 21:00] VITALS: BP 142/86; PULSE 88; RESP 18; TEMP 98.9; O2SAT 93
[2024-04-21] MEDS: ATORVASTATIN 20 MG TAB PO SCH (21:23)
[2024-04-21] MEDS: APIXABAN 2.5 MG TAB PO SCH (21:25)
--- NOTE | 2024-04-21 21:57 | DVHINCON2 ---
Date of service: Apr 21, 2024 Referring Physician Camila Hill MD Reason for Consultation Acute on chronic hypoxic respiratory failure, pleural effusion, pulmonary edema History of Present Illness A 78-year-old man with PMHx of COPD, congestive heart failure, ESRD on hemodialysis T-T-S, DM type II, hx of DVT, coronary artery disease s/p PCI, who presents to the ED by own vehicle with ex- (also pyroglazer/POA, Vanesa) with c/o shortness of breath. Reports patient has been more confused for the past few days. at night ex- tried to put on his CPAP but patient remained short of breath and confused. He was brought in by ex-. In ED, patient appeared to be hallucinating, short of breath, confused. Partner notes he has had a productive-sounding cough but has not produced any sputum. He has been requiring more oxygen and still unable to keep saturations above 88. Denies F/C, N/V, abdominal pain, chest pain or any other concerns.. Of note, he was recently admitted at [facility] for DVT of right upper extremity and GI bleed. During this admission patient was intubated. On discharge he was continued on aspirin 81 and low-dose Eliquis b.i.d. Patient was admitted for further care and pulmonary consultation is requested for evaluation and management due to these findings. Review of Systems: 14-point review of systems negative unless otherwise noted above. Past Medical History: COPD, congestive heart failure, ESRD on hemodialysis T-T-S, DM type II, hx of DVT, coronary artery disease s/p PCI Past Surgical History: PCI. Medications: Reviewed. Allergies: Lisinopril Family History: Heart disease, DM, hypertension, stroke. Social History: Nonsmoker. No alcohol or illicit drug use. Family History: Family history: Cardiovascular disease G8 BROTHER Family history: Diabetes mellitus G8 MOTHER G8 FATHER G8 BROTHER Family history: Hypertension G8 MOTHER G8 FATHER G8 BROTHER Stroke G8 MOTHER Allergies: Coded Allergies: Lisinopril (Verified Adverse Reaction, Severe, ANGIOEDEMA, 09/23/23) FACE,TONGUE, LIP SWELLING Home Meds Active Scripts Apixaban Base (ELIQUIS) 2.5 Mg Tab, 2.5 MG PO BID for 30 Days, #60 TAB 3 Refills Prov:PETER LAMAR MD 11/03/23 Reported Medications Pantoprazole Sodium Sesquihydr (Protonix) 40 Mg Tab, 40 MG PO DAILY, #30 TAB 10/28/23 Amlodipine Besylate (NORVASC TABLET) 5 Mg Tb, 10 MG PO DAILY, TAB 10/28/23 Docusate Sodium (Colace) 100 Mg Cap, 100 MG PO BIDPRN PRN for FOR CONSTIPATION, CAP 10/28/23 Bupropion HCl (Bupropion Hydrochloride) 75 Mg Tab, 75 MG PO BID, TAB 10/28/23 Atorvastatin Calcium (ATORVASTATIN CALCIUM) 40 Mg Tab, 1 TAB PO QPM, #90 TAB 3 Refills 10/28/23 Minoxidil (Loniten) 2.5 Mg Tb, 1 TAB PO BID 09/15/23 Omeprazole (Gnp Omeprazole) 20 Mg Tab, 1 TAB PO DAILY 09/15/23 Hydralazine Hcl (Hydralazine Hcl) 50 Mg Tab, 1 TAB PO QID 09/15/23 Aspirin (Aspirin Low Dose) 81 Mg Chw, 1 TAB PO DAILY 09/15/23 Hydrocodone-Acetaminophen (Hydrocodone Bitartrate/AC 5-325 mg) 1 Tab Tab, 1 TAB PO Q6HP PRN for PAIN SCALE 7 THRU 10 09/15/23 Benzonatate (Benzonatate) 100 Mg Cap, 1 CAP PO TID PRN for COUGH for 10 Days, #30 09/15/23 Nitroglycerin (Nitrostat) 0.4 Mg Sub, 1 TAB SL Q5MIN PRN for CHEST PAIN for 30 Days, #25 09/15/23 Nifedipine (Nifedipine Er) 30 Mg Tab, 2 TAB PO BID 09/15/23 Duloxetine HCl (Duloxetine HCl) 30 Mg Cap, 1 CAP PO DAILY 09/15/23 Current Medications Current Medications Medications (Trade) Dose Ordered Sig/Nereyda Route PRN Reason Start Time Stop Time Status Last Admin Acetaminophen/ Hydrocodone Bitart (Patton 5/325MG Tab) 1 tab Q4HP PRN PO MODERATE PAIN (4-6 PAIN SCALE) 04/21/24 08:45 04/21/24 20:26 Ondansetron HCl (Zofran) 4 mg Q4HP PRN IV NAUSEA / VOMITING 04/21/24 08:45 Enoxaparin Sodium (Lovenox) 40 mg DAILY SC 04/21/24 10:00 04/21/24 09:43 DC Acetaminophen (Tylenol Tablet) 650 mg Q6HP PRN PO PAIN SCALE 1-3 OR TEMP>100.4 04/21/24 08:45 Nitroglycerin (Ntrostat Sublingual) 0.4 mg Q5MINP PRN SL FOR CHEST PAIN 04/21/24 08:45 Bupropion HCl (Wellbutrin Tablet) 75 mg BID PO 04/21/24 10:00 04/21/24 21:25 Duloxetine HCl (Cymbalta Capsule) 30 mg DAILY PO 04/21/24 10:00 04/21/24 09:57 Minoxidil (Loniten Tablet) 2.5 mg BID PO 04/21/24 10:00 04/21/24 09:57 Nifedipine (Procardia Xl (Time-Release)) 60 mg BID PO 04/21/24 10:00 04/21/24 21:24 Pantoprazole Sodium (Protonix Tablet) 40 mg DAILY PO 04/21/24 10:00 04/21/24 09:58 Aspirin 81 mg DAILY PO 04/21/24 10:00 04/21/24 09:57 Atorvastatin Calcium (Lipitor) 40 mg HS PO 04/21/24 22:00 04/21/24 21:23 Hydralazine HCl (Apresoline Tablet) 50 mg QID PO 04/21/24 12:00 04/21/24 21:25 Enoxaparin Sodium (Lovenox) 30 mg DAILY SC 04/21/24 10:00 04/21/24 11:00 DC 04/21/24 09:58 Apixaban (Eliquis) 2.5 mg BID PO 04/21/24 22:00 04/21/24 21:25 Vancomycin HCl 0 ml @ 0 mls/hr UD IV 04/21/24 11:00 Cefepime HCl 50 ml @ 12.5 mls/hr DAILY IV 04/22/24 10:00 Vital Signs Vital Signs Date Time Temp Pulse Resp B/P (MAP) Pulse Ox O2 Delivery O2 Flow Rate FiO2 04/21/24 21:35 142/86 04/21/24 16:32 98.8 85 18 98.8 04/21/24 16:32 92 Nasal Cannula* 4 36 Physical Exam Gen.: Patient lying in bed in no apparent distress. On supplemental oxygen. Head: Normocephalic, atraumatic. Eyes: EOMI/PERRLA. Ears: Normal hearing. Normal anatomy. Neck/trachea: Trachea midline, supple. Nose: Normal external anatomy. Mouth: Moist mucous membranes. Chest: Decreased air entry bilaterally. No wheezing or rhonchi. Cardiovascular: Positive S1, positive S2. Regular rate and rhythm. Abdomen: Positive bowel sounds in all 4 quadrants. Soft, non-tender, non- distended. : Deferred. Rectal: Deferred. Skin: Warm, dry. Intact. Extremities: 2+ radial pulses bilaterally. No lower extremity edema. Neuro: Awake, alert, oriented x3. No gross motor or sensory deficits. Cranial nerves II through XII intact. Gait not assessed. Labs/Diagnostic Data Labs Test 04/21/24 10:41 04/21/24 10:35 04/21/24 09:15 04/21/24 08:23 Range/Units Ammonia < 10 L 11-32 umol/L Blood Gas Specimen Type Arterial Blood Gas Sample Site Left radial Blood Gas Patient Temperature 37.0 Arterial Blood Date Drawn [id number] Arterial Blood pH 7.484 H 7.350-7.450 Arterial Blood Partial Pressure CO2 42.7 35.0-48.0 mmHg Arterial Blood Partial Pressure O2 62.8 L 83.0-108.0 mmHg Arterial Blood HCO3 31.4 H 21.0-28.0 mmol/L Arterial Blood Oxygen Saturation 91.3 L 94.0-98.0 % Arterial Blood Base Excess 7.3 H -2.0-3.0 mmol/L Arterial Blood Oxyhemoglobin 89.6 L 94.0-98.0 % Arterial Blood Carboxyhemoglobin 1.2 0.5-1.5 % Arterial Blood Methemoglobin 0.7 0.0-1.5 % Zachery Test Yes Blood Gas Total Hemoglobin 8.40 L 13.5-17.5 g/dL Blood Gas Liter Flow 3.00 Blood Gas Modality Nasal cannula FiO2 % 32.0 Troponin I High Sensitivity 147 *H </=54 ng/L Lactic Acid Level 0.7 0.4-2.0 mmol/L Test 04/21/24 06:20 Range/Units White Blood Count 5.2 4.4-10.8 10^3/uL Red Blood Count 2.96 L 4.5-5.90 10^6/uL Hemoglobin 8.5 L 13.5-17.5 g/dL Hematocrit 25.7 L 41.0-53.0 % Mean Corpuscular Volume 86.9 80.0-100.0 fL Mean Corpuscular Hemoglobin 28.6 28.0-32.0 pg Mean Corpuscular Hemoglobin Concent 32.9 32.0-36.0 g/dL Red Cell Distribution Width 24.7 H 11.8-14.3 % Platelet Count 187 140-450 10^3/uL Mean Platelet Volume 6.6 L 6.9-10.8 fL Neutrophils (%) (Auto) 64.6 37.0-80.0 % Lymphocytes (%) (Auto) 17.1 10.0-50.0 % Monocytes (%) (Auto) 13.8 H 0.0-12.0 % Eosinophils (%) (Auto) 3.9 0.0-7.0 % Basophils (%) (Auto) 0.6 0.0-2.0 % Neutrophils # (Auto) 3.3 1.6-8.6 10 ^3/uL Lymphocytes # (Auto) 0.9 0.4-5.4 10 ^3/uL Monocytes # (Auto) 0.7 0-1.3 10 ^3/uL Eosinophils # (Auto) 0.2 0-0.8 10 ^3/uL Basophils # (Auto) 0 0-0.2 10 ^3/uL Nucleated Red Blood Cells 0.1 % Sodium Level 137 136-145 mmol/L Potassium Level 4.8 3.5-5.1 mmol/L Chloride Level 96 L 98-107 mmol/L Carbon Dioxide Level 34 H 20-31 mmol/L Anion Gap 7 5-15 Blood Urea Nitrogen 26 H 9-23 mg/dL Creatinine 4.95 H 0.700-1.30 mg/dL Glomerular Filtration Rate Calc 11 >90 mL/min BUN/Creatinine Ratio 5.3 L 10.0-20.0 Serum Glucose 94 74-106 mg/dL Calcium Level 9.5 8.7-10.4 mg/dL Phosphorus Level 2.5 2.4-5.1 mg/dL Magnesium Level 1.8 1.6-2.6 mg/dL Assessment Impression Acute on chronic hypoxic respiratory failure Pleural effusion Atelectasis End-stage renal disease, on hemodialysis Pulmonary edema Pneumonia Congestive heart failure Plan: Supplemental oxygen 4 LPM NC Titrate to keep O2 sats above 92%. Taper O2 as tolerated. CXR demonstrated cardiomegaly. Prominent bilateral interstitial markings and patchy airspace opacity in the right lower lung. Possible small right pleural effusion. No pneumothorax. Continue antibiotics Eliquis Continue statin Incentive spirometry Pain control Avoid oversedation Hemodialysis per Nephrology Monitor renal function. Monitor electrolytes. Supplement as necessary. Monitor ins and outs. Protonix for GI prophylaxis Lovenox for DVT prophylaxis Prognosis: Poor given patient's multiple co-morbidities. Rest of plan per hospitalist and other consultants. Thank you Dr. Camila Hill MD, for allowing me to participate in this patient's care. Further recommendations will depend on the patient's clinical course. Please do not hesitate to contact me if you have any questions or concerns. This medical document was created using an electronic medical record system with [employer] dictation system. Although these documentations are being carefully reviewed, there may still be some phonetic and typographical changes. The errors are purely typographical, due to imperfection on the software program, and do not reflect any compromise in the patient's medical care. Plan discussed with: Patient, Other (HANS Carter/MD Hill) JUAN SALDAÑA MD Apr 21, 2024 21:57
[2024-04-22] VITALS (14 sets, daily range): BP systolic 148–171; BP diastolic 49–78; PULSE 81–89; RESP 17–22; TEMP 97.5–98; O2SAT 86–97
[2024-04-22] MEDS: ACETAMINOPHEN 325 MG TAB PO PRN (05:54)
[2024-04-22] MEDS ORDERED: VANCOMYCIN PER PHARMACY 0 MG IV SCH (10:15)
[2024-04-22] MEDS ORDERED: DEXTROSE (50%) 50ML SYRG IV PRN (10:15)
[2024-04-22] MEDS: CEFEPIME 1GM/ 50ML 50 ML IV SCH (10:35)
--- NOTE | 2024-04-22 10:51 | ECG ---
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
[2024-04-22 11:03] LABS: Basophils # (auto) 0 10 ^3/uL (0-0.2); Basophils % (auto) 0.3 % (0.0-2.0); Eosinophils # (auto) 0.1 10 ^3/uL (0-0.8); Eosinophils % (auto) 1.6 % (0.0-7.0); Hemoglobin 9.1 g/dL (13.5-17.5); Lymphocytes # (auto) 0.3 10 ^3/uL (0.4-5.4); Lymphocytes % (auto) 3.7 % (10.0-50.0); Mean Corpuscular Hemoglobin 28.9 pg (28.0-32.0); Mean Corpuscular Hgb Conc. 32.5 g/dL (32.0-36.0); Monocytes # (auto) 0.6 10 ^3/uL (0-1.3); Monocytes % (auto) 8.8 % (0.0-12.0); Neutrophils # (auto) 6.3 10 ^3/uL (1.6-8.6); Neutrophils % (auto) 85.6 % (37.0-80.0); Platelet Count (auto) 238 10^3/uL (140-450); Red Blood Cells 3.15 10^6/uL (4.5-5.90); White Blood Cell 7.3 10^3/uL (4.4-10.8)
[2024-04-22 11:06] LABS: Red Cell Distribution Width 24.7 % (11.8-14.3)
[2024-04-22 11:23] LABS: Albumin 3.9 g/dL (3.2-4.8); Alkaline Phosphatase 77 U/L (46-116); Anion Gap 14 (5-15); BUN/Creatinine Ratio 5.4 (10.0-20.0); Calcium 9.6 mg/dL (8.7-10.4); Carbon Dioxide 26 mmol/L (20-31)
[2024-04-22 11:24] LABS: Total Protein 7.6 g/dL (5.7-8.2)
[2024-04-22 11:33] LABS: Alanine Aminotransferase < 9 U/L (7-40); Aspartate Aminotransferase 12 U/L (13-40); Bilirubin, Total 0.3 mg/dL (0.2-1.0); Blood Urea Nitrogen 37 mg/dL (9-23); Chloride 93 mmol/L (98-107); Glucose 131 mg/dL (74-106); Potassium 5.1 mmol/L (3.5-5.1); Sodium 133 mmol/L (136-145)
[2024-04-22] MEDS: InsuLIN REG 1unit/0.01ml Soln (100units/ml) SC SCH (11:58)
[2024-04-22] MEDS: ACCU-CHEK COMFORT CURVE STRIP VI SCH (11:58)
[2024-04-22] MEDS: SODIUM CHL 0.9% 1000 ML BAG XX ONE (12:30)
[2024-04-22] MEDS: ALBUTEROL SULF 2.5 MG/0.5ML(0.5%) NEB SOLN NEB PRN (15:58)
--- NOTE | 2024-04-22 16:54 | DVHPN2 ---
Subjective Was having some low oxygenation this morning. He is having dialysis now. 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) Changes from previous H/P or p: No Changes Objective Vitals Vital Signs Date Time Temp Pulse Resp B/P (MAP) Pulse Ox O2 Delivery O2 Flow Rate FiO2 04/22/24 16:38 97.9 85 22 168/78 (108) 91 97.9 04/22/24 15:58 Oxymizer 5.0 04/22/24 15:58 N/A Intake/Output Intake and Output 04/22/24 07:00 Intake Total 280 ml Output Total 0 ml Balance 280 ml Intake Oral 30 ml IV Total 250 ml Output Urine Total 0 ml Stool Total 0 ml # Voids 1 General Appearance: Alert, Cooperative, mild distress HEENT: Atraumatic Lungs: Other (Few crackles bilateral lungs and fair air entry with mild wheezes bilateral lower hernandez) Cardiovascular: Regular rate Abdomen: Normal bowel sounds, Soft, No tenderness Extremities: No edema Medications Current Medications Medications Dose Ordered Sig/Nereyda Route Start Time Stop Time Status Last Admin Dose Admin Acetaminophen/ Hydrocodone Bitart 1 tab Q4HP PRN PO 04/21/24 08:45 04/22/24 01:58 1 TAB Ondansetron HCl 4 mg Q4HP PRN IV 04/21/24 08:45 Acetaminophen 650 mg Q6HP PRN PO 04/21/24 08:45 04/22/24 05:54 650 MG Nitroglycerin 0.4 mg Q5MINP PRN SL 04/21/24 08:45 Bupropion HCl 75 mg BID PO 04/21/24 10:00 04/22/24 10:29 75 MG Duloxetine HCl 30 mg DAILY PO 04/21/24 10:00 04/22/24 10:29 30 MG Minoxidil 2.5 mg BID PO 04/21/24 10:00 04/22/24 11:00 2.5 MG Nifedipine 60 mg BID PO 04/21/24 10:00 04/22/24 10:30 60 MG Pantoprazole Sodium 40 mg DAILY PO 04/21/24 10:00 04/22/24 10:30 40 MG Aspirin 81 mg DAILY PO 04/21/24 10:00 04/22/24 10:29 81 MG Atorvastatin Calcium 40 mg HS PO 04/21/24 22:00 04/21/24 21:23 40 MG Hydralazine HCl 50 mg QID PO 04/21/24 12:00 04/22/24 05:53 50 MG Apixaban 2.5 mg BID PO 04/21/24 22:00 04/22/24 10:29 2.5 MG Diagnostic Test (Pha) 1 strip ACHS 04/22/24 11:30 04/22/24 11:58 1 STRIP Insulin Human Regular ACHS SC 04/22/24 11:30 04/22/24 11:58 3 UNITS Dextrose 50 ml UD PRN IV 04/22/24 10:15 Ceftriaxone Sodium 50 ml @ 100 mls/hr DAILY@09 IV 04/23/24 09:00 Doxycycline Hyclate 250 ml @ 125 mls/hr Q12H IV 04/22/24 15:15 Albuterol 2.5 mg Q6HR NEB 04/22/24 18:00 Albuterol 2.5 mg Q3HPRN PRN NEB 04/22/24 15:15 04/22/24 15:58 2.5 MG Ipratropium [place] 0.5 mg Q6HR NEB 04/22/24 18:00 Lactulose 30 ml DAILY PRN PO 04/22/24 15:15 Laboratory Results Laboratory Tests 04/22/24 10:40 Chemistry Test 04/22/24 10:40 Albumin 3.9 g/dL (3.2-4.8) Calcium Level 9.6 mg/dL (8.7-10.4) Total Protein 7.6 g/dL (5.7-8.2) LFT Test 04/22/24 10:40 Alanine Aminotransferase (ALT) < 9 U/L (7-40) Alkaline Phosphatase 77 U/L (46-116) Aspartate Amino Transferase (AST) 12 U/L (13-40) L Total Bilirubin 0.3 mg/dL (0.2-1.0) Microbiology Microbiology Date/Time Source Procedure Growth Status 04/21/24 08:23 Blood Blood Culture - Preliminary NO GROWTH AFTER 24 HOURS OF INCUBATION. Resulted Assessment/Plan Assessment/Plan Respiratory distress likely combination of COPD and volume overload with need for dialysis Pulmonary edema Pleural effusion Questionable pneumonia in the right lower lobe with patchy infiltrates End-stage renal disease on hemodialysis Diabetes History of DVT Coronary artery disease with history of PCI Anemia of chronic disease Plan: We will go ahead and start the med nebs. We will change antibiotic to Rocephin and doxycycline. We will stop vancomycin and meropenem. We we will give small dose steroids. Dialysis ongoing. Repeat labs and x-rays. Further plan per orders Plan discussed with: Patient, Other (Significant other at bedside) My Orders Orders - MARIO OLIVIA MD Procedure Category Date Status Time Covid19 Antigen Lilly LAB 04/22/24 Logged Rapid Influenza A&B LAB 04/22/24 Logged 15:02 Ceftriaxone 1gm/50ml PHA 04/23/24 In Process D5w (Rocephin) 09:00 Doxycycline PHA 04/22/24 In Process 100mg/250ml 15:15 Albuterol Medneb PHA 04/22/24 In Process (Ventolin Medneb) 18:00 Albuterol Medneb PHA 04/22/24 In Process (Ventolin Medneb) 15:15 Ipratropium Medneb PHA 04/22/24 In Process (Atrovent Medneb) 18:00 Lactulose Oral PHA 04/22/24 In Process 15:15 Urinalysis LAB 04/22/24 Logged 15:08 Date of Service: Apr 22, 2024 Billing Provider: MARIO OLIVIA MD Common Visit Codes: [id number] INP/OBS CARE(HIGH) MARIO OLIVIA MD Apr 22, 2024 16:54
[2024-04-22 17:34] LABS: COVID19 ANTIGEN SOFIA FIA NEGATIVE (NEGATIVE); Rapid Influenza A Negative (Negative); Rapid Influenza B Negative (Negative)
[2024-04-22] MEDS: ALBUTEROL SULF 2.5 MG/0.5ML(0.5%) NEB SOLN NEB SCH (18:00)
[2024-04-22] MEDS: IPRATROPIUM BROM 0.5 MG/2.5ML INH SOL NEB SCH (18:00)
--- NOTE | 2024-04-22 19:52 | DVHINCON2 ---
DATE OF CONSULTATION: 04/22/2024 CONSULTING PHYSICIAN: Jose De Jesus Jacobs MD. REASON FOR CONSULTATION: Management of dialysis. HISTORY OF PRESENT ILLNESS: The patient is a 78-year-old gentleman who is well known to me. He is one of our chronic dialysis patient who has been having problems with dialysis catheter infection. He is undergoing intravenous antibiotic treatment in the clinic, came to the hospital yesterday complaining of shortness of breath and cough. He is very obtunded, confused. Apparently, this has been getting worse for the last few days. In the Emergency Room, history was obtained. He was also having cough with productive sputum and needing more oxygen at home, so they decided to bring him to the Emergency Room. Here, he was found to be hypertensive with a systolic in the 170s, hypoxemic. He had to be put on 4 liters of oxygen nasal cannula and with that he is keeping saturation above 90%. He missed his dialysis treatment at the clinic yesterday. I am being consulted to handle his dialysis treatment. REVIEW OF SYSTEMS: Not obtainable. PAST MEDICAL HISTORY: Significant for longstanding hypertension, history of end-stage renal disease, anemia, heart disease, hyperlipidemia, hyperparathyroidism. He was recently admitted to the hospital with a DVT of the right upper extremity and GI bleeding. During that admission, he was on mechanical ventilation in the intensive care unit. SOCIAL HISTORY: He denies smoking cigarettes or drinking alcohol. FAMILY HISTORY: Negative for chronic conditions. MEDICATIONS: Currently in the hospital, the patient is on insulin, vancomycin, cefepime, Eliquis, atorvastatin. There are orders for hydralazine, aspirin, minoxidil, nitroglycerin, acetaminophen. PHYSICAL EXAMINATION: VITAL SIGNS: Blood pressure 170/75, heart rate 86, respirations 20 per minute, temperature 98. GENERAL: The patient is an elderly gentleman who appears to be chronically ill. On top of that, he appears to be acutely ill. His eyes are closed. He is mumbling, does not answer questions appropriately. HEENT: Shows pale oral mucosa and conjunctivae. NECK: No jugular venous distention, palpable thyroid or lymphadenopathy. LUNGS: Show diminished air entry bilaterally. CARDIOVASCULAR: Shows regular rate, 1/6 systolic murmur. ABDOMEN: Soft, mildly distended. There is no ascites. EXTREMITIES: Show no clubbing, cyanosis. There is no edema. LABORATORY DATA: Sodium is ____, potassium 5.1, BUN 37, creatinine 6.8, hemoglobin 9.1, white blood cell count 7.3. Arterial blood gas showed a pH of 7.4, pCO2 of 42, paO2 of 62. IMAGING: Chest x-ray shows bilateral pulmonary congestion. ASSESSMENT AND PLAN: * End-stage renal disease. The patient does have mild fluid overload, although it seems like his hypoxemia is mostly related to underlying pneumonia. * As above, hypoxemia and pneumonia. * Mild hyperkalemia. * Uncontrolled hypertension. * Anemia of renal disease. Hemoglobin is below therapeutic range. The patient will be scheduled to have dialysis as soon as possible. We will remove 3 liters of fluid. Give him a dose of Epogen. He should continue broad-spectrum intravenous antibiotics, aggressive ____ physical therapy and oxygen supplementations to maintain saturation above 90%. We will follow him closely. Thank you for the consultation. MD ARTURO Vasquez/BENEDICTO/RENE TID: [id number] RECEIPT: [id number]
[2024-04-22] MEDS: methylPREDNISolone SOD SUCC 40 MG/ML VL IV SCH (21:28)
[2024-04-22] MEDS: DOXYCYCLINE 100MG/250ML 250 ML IV SCH (21:30)
--- NOTE | 2024-04-22 23:02 | DVHPN2 ---
Progress Note - Dictate Date Seen: Apr 22, 2024 Medical Necessity Reason Pt with a Central, PICC or Fol: No Subjective Patient seen and examined at bedside. Remains on supplemental oxygen Overnight events reviewed. vital signs Vital Sign Date Time Temp Pulse Resp B/P (MAP) Pulse Ox O2 Delivery O2 Flow Rate FiO2 04/22/24 21:30 145/50 04/22/24 21:00 98.0 89 18 95 98.0 04/22/24 20:22 Mask 8.0 04/22/24 20:22 60 Total Intake and Output 04/21/24 04/21/24 04/22/24 15:00 23:00 07:00 Intake Total 250 ml 0 ml 30 ml Output Total 0 ml 0 ml Balance 250 ml 0 ml 30 ml medications Current Medications Medications Dose Ordered Sig/Nereyda Route Start Time Stop Time Status Last Admin Dose Admin Acetaminophen/ Hydrocodone Bitart 1 tab Q4HP PRN PO 04/21/24 08:45 04/22/24 01:58 1 TAB Ondansetron HCl 4 mg Q4HP PRN IV 04/21/24 08:45 Acetaminophen 650 mg Q6HP PRN PO 04/21/24 08:45 04/22/24 05:54 650 MG Nitroglycerin 0.4 mg Q5MINP PRN SL 04/21/24 08:45 Bupropion HCl 75 mg BID PO 04/21/24 10:00 04/22/24 21:30 75 MG Duloxetine HCl 30 mg DAILY PO 04/21/24 10:00 04/22/24 10:29 30 MG Minoxidil 2.5 mg BID PO 04/21/24 10:00 04/22/24 11:00 2.5 MG Nifedipine 60 mg BID PO 04/21/24 10:00 04/22/24 21:30 60 MG Pantoprazole Sodium 40 mg DAILY PO 04/21/24 10:00 04/22/24 10:30 40 MG Aspirin 81 mg DAILY PO 04/21/24 10:00 04/22/24 10:29 81 MG Atorvastatin Calcium 40 mg HS PO 04/21/24 22:00 04/22/24 21:28 40 MG Hydralazine HCl 50 mg QID PO 04/21/24 12:00 04/22/24 21:29 50 MG Apixaban 2.5 mg BID PO 04/21/24 22:00 04/22/24 21:30 2.5 MG Diagnostic Test (Pha) 1 strip ACHS 04/22/24 11:30 04/22/24 21:54 1 STRIP Insulin Human Regular ACHS SC 04/22/24 11:30 04/22/24 21:59 4 UNITS Dextrose 50 ml UD PRN IV 04/22/24 10:15 Ceftriaxone Sodium 50 ml @ 100 mls/hr DAILY@09 IV 04/23/24 09:00 Doxycycline Hyclate 250 ml @ 125 mls/hr Q12H IV 04/22/24 15:15 04/22/24 21:30 125 MLS/HR Albuterol 2.5 mg Q6HR NEB 04/22/24 18:00 Albuterol 2.5 mg Q3HPRN PRN NEB 04/22/24 15:15 04/22/24 20:15 2.5 MG Ipratropium [place] 0.5 mg Q6HR NEB 04/22/24 18:00 Lactulose 30 ml DAILY PRN PO 04/22/24 15:15 Methylprednisolone Sodium Succinate 40 mg Q12H IV 04/22/24 17:00 04/22/24 21:28 40 MG objective Gen.: Patient lying in bed in no apparent distress. On supplemental oxygen. Head: Normocephalic, atraumatic. Eyes: EOMI/PERRLA. Ears: Normal hearing. Normal anatomy. Neck/trachea: Trachea midline, supple. Nose: Normal external anatomy. Mouth: Moist mucous membranes. Chest: Decreased air entry bilaterally. No wheezing or rhonchi. Cardiovascular: Positive S1, positive S2. Regular rate and rhythm. Abdomen: Positive bowel sounds in all 4 quadrants. Soft, non-tender, non- distended. : Deferred. Rectal: Deferred. Skin: Warm, dry. Intact. Extremities: 2+ radial pulses bilaterally. No lower extremity edema. Neuro: Awake, alert, oriented x3. No gross motor or sensory deficits. Cranial nerves II through XII intact. Gait not assessed. laboratory and microbiology Laboratory Tests 04/22/24 10:40 Test 04/22/24 10:40 Range/Units Serum Glucose 131 H 74-106 mg/dL Assessment/Plan Impression Acute on chronic hypoxic respiratory failure Pleural effusion Atelectasis End-stage renal disease, on hemodialysis Pulmonary edema Pneumonia Congestive heart failure Events: Remains on supplemental oxygen, 8 LPM simple mask Taper O2 as tolerated Increased O2 requirements. Continue bronchodilators Incentive spirometry HD per nephrology Monitor renal function. Monitor electrolytes. Supplement as necessary. Labs and imaging reviewed. Rest of plan as noted below. Plan: Supplemental oxygen Titrate to keep O2 sats above 92%. CXR demonstrated cardiomegaly. Prominent bilateral interstitial markings and patchy airspace opacity in the right lower lung. Possible small right pleural effusion. No pneumothorax. Continue antibiotics Eliquis Continue statin Incentive spirometry Pain control Avoid oversedation Hemodialysis per Nephrology Monitor renal function. Monitor electrolytes. Supplement as necessary. Monitor ins and outs. Protonix for GI prophylaxis Lovenox for DVT prophylaxis Prognosis: Poor given patient's multiple co-morbidities. Rest of plan per hospitalist and other consultants. Thank you Dr. Camila Hill MD, for allowing me to participate in this patient's care. Further recommendations will depend on the patient's clinical course. Please do not hesitate to contact me if you have any questions or concerns. This medical document was created using an electronic medical record system with [employer] dictation system. Although these documentations are being carefully reviewed, there may still be some phonetic and typographical changes. The errors are purely typographical, due to imperfection on the software program, and do not reflect any compromise in the patient's medical care. Plan discussed with: Patient, Other (HANS Sterling) JUAN SALDAÑA MD Apr 22, 2024 23:02
[2024-04-23] VITALS (18 sets, daily range): BP systolic 129–149; BP diastolic 52–101; PULSE 71–93; RESP 16–22; TEMP 97.5–98.4; O2SAT 77–100
[2024-04-23 08:06] LABS: Basophils # (auto) 0 10 ^3/uL (0-0.2); Basophils % (auto) 0.1 % (0.0-2.0); Eosinophils # (auto) 0 10 ^3/uL (0-0.8); Hematocrit 27.1 % (41.0-53.0); Lymphocytes # (auto) 0.3 10 ^3/uL (0.4-5.4); Lymphocytes % (auto) 7.1 % (10.0-50.0); Mean Corpuscular Hemoglobin 29.3 pg (28.0-32.0); Mean Corpuscular Hgb Conc. 33.1 g/dL (32.0-36.0); Mean Corpuscular Volume 88.6 fL (80.0-100.0); Monocytes # (auto) 0.1 10 ^3/uL (0-1.3); Monocytes % (auto) 2.4 % (0.0-12.0); Neutrophils # (auto) 3.8 10 ^3/uL (1.6-8.6); Neutrophils % (auto) 90.4 % (37.0-80.0); Nucleated Red Blood Cells % 0.2 %; Platelet Count (auto) 218 10^3/uL (140-450); Red Blood Cells 3.06 10^6/uL (4.5-5.90); White Blood Cell 4.3 10^3/uL (4.4-10.8)
--- NOTE | 2024-04-23 08:09 | DVH ---
XY CHEST PORTABLE, HISTORY: fu COMPARISON: XY CHEST PORTABLE on DOS: 04/21/24, XY CHEST XRAY 1 VIEW on DOS: 03/09/24, XY CHEST BERTHA BLE on DOS: 03/06/24 XY CHEST PORTABLE on DOS: 04/21/24, XY CHEST XRAY 1 VIEW on DOS: 03/09/24, XY CHEST PORTABLE on DOS: 03/06/24 TECHNICAL DATA: 1 view of the chest was obtained. FINDINGS: Lines and tubes: A tunnled HD catheter is seen. Cardiomediastinal silhouette: enlarged Pulmonary vasculature: prominent Lung expansion: low Lung airspace: multifocal bilateral airspace opacity Lung interstitium: increased Pleura: normal Pneumothorax: no Bones: Unremarkable Other: no IMPRESSION: Cardiomegaly with pulmonary vascular congestion and probable mild interstitial edema.
[2024-04-23 08:16] LABS: Alkaline Phosphatase 77 U/L (46-116); Anion Gap 12 (5-15); BUN/Creatinine Ratio 4.9 (10.0-20.0); Blood Urea Nitrogen 22 mg/dL (9-23); Calcium 9.8 mg/dL (8.7-10.4); Carbon Dioxide 29 mmol/L (20-31); Potassium 4.1 mmol/L (3.5-5.1)
[2024-04-23 08:17] LABS: Red Cell Distribution Width 24.5 % (11.8-14.3); Total Protein 7.6 g/dL (5.7-8.2)
[2024-04-23 08:24] LABS: Alanine Aminotransferase < 9 U/L (7-40); Aspartate Aminotransferase 12 U/L (13-40); Bilirubin, Total 0.2 mg/dL (0.2-1.0); Chloride 95 mmol/L (98-107); Glucose 196 mg/dL (74-106); Sodium 136 mmol/L (136-145)
[2024-04-23] MEDS: cefTRIAXone 1GM/50ML D5W 50 ML IV SCH (08:28)
[2024-04-23 09:34] LABS: Ovalocytes FEW; Platelet Estimate Adequate; Target Cell FEW
[2024-04-23 09:35] LABS: Anisocytosis Slight
--- NOTE | 2024-04-23 14:02 | DVHPN2 ---
Progress Note - Dictate Date Seen: Apr 23, 2024 Has the PT tested + for MRSA If YES, has PT been informed?: No Medical Necessity Reason Pt with a Central, PICC or Fol: No Subjective Sleeping, has been mostly lethargic vital signs Vital Sign Date Time Temp Pulse Resp B/P (MAP) Pulse Ox O2 Delivery O2 Flow Rate FiO2 04/23/24 13:32 131/101 04/23/24 13:14 97.9 71 16 93 97.9 04/23/24 06:37 Simple Mask* 6 50 Total Intake and Output 04/22/24 04/22/24 04/23/24 15:00 23:00 07:00 Intake Total 360 ml 350 ml Balance 360 ml 350 ml medications Current Medications Medications Dose Ordered Sig/Nereyda Route Start Time Stop Time Status Last Admin Dose Admin Acetaminophen/ Hydrocodone Bitart 1 tab Q4HP PRN PO 04/21/24 08:45 04/22/24 01:58 1 TAB Ondansetron HCl 4 mg Q4HP PRN IV 04/21/24 08:45 Acetaminophen 650 mg Q6HP PRN PO 04/21/24 08:45 04/22/24 05:54 650 MG Nitroglycerin 0.4 mg Q5MINP PRN SL 04/21/24 08:45 Bupropion HCl 75 mg BID PO 04/21/24 10:00 04/23/24 09:22 75 MG Duloxetine HCl 30 mg DAILY PO 04/21/24 10:00 04/23/24 09:22 30 MG Minoxidil 2.5 mg BID PO 04/21/24 10:00 04/22/24 11:00 2.5 MG Nifedipine 60 mg BID PO 04/21/24 10:00 04/23/24 09:22 60 MG Pantoprazole Sodium 40 mg DAILY PO 04/21/24 10:00 04/23/24 09:22 40 MG Aspirin 81 mg DAILY PO 04/21/24 10:00 04/23/24 09:22 81 MG Atorvastatin Calcium 40 mg HS PO 04/21/24 22:00 04/22/24 21:28 40 MG Hydralazine HCl 50 mg QID PO 04/21/24 12:00 04/23/24 13:32 50 MG Apixaban 2.5 mg BID PO 04/21/24 22:00 04/23/24 09:23 2.5 MG Diagnostic Test (Pha) 1 strip ACHS 04/22/24 11:30 04/23/24 11:30 1 STRIP Insulin Human Regular ACHS SC 04/22/24 11:30 04/23/24 13:38 6 UNITS Dextrose 50 ml UD PRN IV 04/22/24 10:15 Ceftriaxone Sodium 50 ml @ 100 mls/hr DAILY@09 IV 04/23/24 09:00 04/23/24 08:28 100 MLS/HR Doxycycline Hyclate 250 ml @ 125 mls/hr Q12H IV 04/22/24 15:15 04/23/24 05:35 125 MLS/HR Albuterol 2.5 mg Q6HR NEB 04/22/24 18:00 04/23/24 11:20 2.5 MG Albuterol 2.5 mg Q3HPRN PRN NEB 04/22/24 15:15 04/22/24 20:15 2.5 MG Ipratropium [place] 0.5 mg Q6HR NEB 04/22/24 18:00 04/23/24 11:20 0.5 MG Lactulose 30 ml DAILY PRN PO 04/22/24 15:15 Methylprednisolone Sodium Succinate 40 mg Q12H IV 04/22/24 17:00 04/23/24 05:37 40 MG objective GENERAL: The patient is an elderly gentleman who appears to be chronically ill. On top of that, he appears to be acutely ill. His eyes are closed. He is mumbling, does not answer questions appropriately. HEENT: Shows pale oral mucosa and conjunctivae. NECK: No jugular venous distention, palpable thyroid or lymphadenopathy. LUNGS: Show diminished air entry bilaterally. CARDIOVASCULAR: Shows regular rate, 1/6 systolic murmur. ABDOMEN: Soft, mildly distended. There is no ascites. EXTREMITIES: Show no clubbing, cyanosis. There is no edema. IMAGING: Chest x-ray shows bilateral pulmonary congestion. laboratory and microbiology Laboratory Tests 04/23/24 07:43 Test 04/23/24 07:43 Range/Units Serum Glucose 196 H 74-106 mg/dL Assessment/Plan ASSESSMENT AND PLAN: * End-stage renal disease. The patient does have mild fluid overload, although it seems like his hypoxemia is mostly related to underlying pneumonia. Patient had HD yesterday * As above, hypoxemia and pneumonia. * Mild hyperkalemia resolved after HD * HTN * Anemia of renal disease. Hemoglobin is below therapeutic range. Next HD tomorrow, then MWF Increase Epogen dose Follow blood cultures IV antibiotics Plan discussed with: Patient MADELEINE ZHANG MD Apr 23, 2024 14:02
--- NOTE | 2024-04-23 16:51 | DVHPN2 ---
Subjective Some confusion still. Reviewed: Care Plan, H&P, Labs, Medications, Previous Orders, Radiology, Other (Golf Manager) Changes from previous H/P or p: No Changes Objective Vitals Vital Signs Date Time Temp Pulse Resp B/P (MAP) Pulse Ox O2 Delivery O2 Flow Rate FiO2 04/23/24 16:48 98.2 88 16 134/79 (97) 94 98.2 04/23/24 08:00 Simple Mask* 6 50 Intake/Output Intake and Output 04/23/24 07:00 Intake Total 710 ml Balance 710 ml Intake Oral 460 ml IV Total 250 ml General Appearance: Alert, Cooperative, mild distress HEENT: Atraumatic Lungs: Other (Few crackles bilateral lungs and fair air entry with mild wheezes bilateral lower hernandez) Cardiovascular: Regular rate Abdomen: Normal bowel sounds, Soft, No tenderness Extremities: No edema Medications Current Medications Medications Dose Ordered Sig/Nereyda Route Start Time Stop Time Status Last Admin Dose Admin Acetaminophen/ Hydrocodone Bitart 1 tab Q4HP PRN PO 04/21/24 08:45 04/22/24 01:58 1 TAB Ondansetron HCl 4 mg Q4HP PRN IV 04/21/24 08:45 Acetaminophen 650 mg Q6HP PRN PO 04/21/24 08:45 04/22/24 05:54 650 MG Nitroglycerin 0.4 mg Q5MINP PRN SL 04/21/24 08:45 Bupropion HCl 75 mg BID PO 04/21/24 10:00 04/23/24 09:22 75 MG Duloxetine HCl 30 mg DAILY PO 04/21/24 10:00 04/23/24 09:22 30 MG Minoxidil 2.5 mg BID PO 04/21/24 10:00 04/22/24 11:00 2.5 MG Nifedipine 60 mg BID PO 04/21/24 10:00 04/23/24 09:22 60 MG Pantoprazole Sodium 40 mg DAILY PO 04/21/24 10:00 04/23/24 09:22 40 MG Aspirin 81 mg DAILY PO 04/21/24 10:00 04/23/24 09:22 81 MG Atorvastatin Calcium 40 mg HS PO 04/21/24 22:00 04/22/24 21:28 40 MG Hydralazine HCl 50 mg QID PO 04/21/24 12:00 04/23/24 13:32 50 MG Apixaban 2.5 mg BID PO 04/21/24 22:00 04/23/24 09:23 2.5 MG Diagnostic Test (Pha) 1 strip ACHS 04/22/24 11:30 04/23/24 11:30 1 STRIP Insulin Human Regular ACHS SC 04/22/24 11:30 04/23/24 13:38 6 UNITS Dextrose 50 ml UD PRN IV 04/22/24 10:15 Ceftriaxone Sodium 50 ml @ 100 mls/hr DAILY@09 IV 04/23/24 09:00 04/23/24 08:28 100 MLS/HR Doxycycline Hyclate 250 ml @ 125 mls/hr Q12H IV 04/22/24 15:15 04/23/24 16:02 125 MLS/HR Albuterol 2.5 mg Q6HR NEB 04/22/24 18:00 04/23/24 11:20 2.5 MG Albuterol 2.5 mg Q3HPRN PRN NEB 04/22/24 15:15 04/22/24 20:15 2.5 MG Ipratropium [place] 0.5 mg Q6HR NEB 04/22/24 18:00 04/23/24 11:20 0.5 MG Lactulose 30 ml DAILY PRN PO 04/22/24 15:15 Methylprednisolone Sodium Succinate 40 mg Q12H IV 04/22/24 17:00 04/23/24 05:37 40 MG Trazodone HCl 50 mg HS PO 04/23/24 22:00 UNV Laboratory Results Laboratory Tests 04/23/24 07:43 Chemistry Test 04/23/24 07:43 Albumin 4.0 g/dL (3.2-4.8) Calcium Level 9.8 mg/dL (8.7-10.4) Total Protein 7.6 g/dL (5.7-8.2) Cardiac Markers Test 04/23/24 07:43 B-Type Natriuretic Peptide 1428.40 pg/mL (0-100) LFT Test 04/23/24 07:43 Alanine Aminotransferase (ALT) < 9 U/L (7-40) Alkaline Phosphatase 77 U/L (46-116) Aspartate Amino Transferase (AST) 12 U/L (13-40) L Total Bilirubin 0.2 mg/dL (0.2-1.0) Microbiology Microbiology Date/Time Source Procedure Growth Status 04/21/24 08:23 Blood Blood Culture - Preliminary NO GROWTH AFTER 48 HOURS OF INCUBATION. Resulted Assessment/Plan Assessment/Plan Mild altered mental status Respiratory distress likely combination of COPD and volume overload with need for dialysis Pulmonary edema Pleural effusion Questionable pneumonia in the right lower lobe with patchy infiltrates End-stage renal disease on hemodialysis Diabetes History of DVT Coronary artery disease with history of PCI Anemia of chronic disease Plan: Head CT. Neurology consultation. Repeat labs. Further plan per orders Plan discussed with: Patient, Other (Significant other at bedside) My Orders Orders - MARIO OLIVIA MD Procedure Category Date Status Time Chest Portable XY 04/23/24 Resulted 06:00 Respiratory Culture YARELI 04/22/24 Logged W/ Gs 16:54 Methylprednisolone PHA 04/22/24 In Process Sod Succ (Solu Medrol 17:00 Trazodone Hcl PHA 04/23/24 Logged (Desyrel) 22:00 Date of Service: Apr 23, 2024 Billing Provider: MARIO OLIVIA MD Common Visit Codes: [id number] INP/OBS CARE(HIGH) MARIO OLIVIA MD Apr 23, 2024 16:51
--- NOTE | 2024-04-23 18:08 | MEDREC ---
[facility] ASP Intervention Section I [facility] ASP Intervention: IV to PO conversion (PLEASE CONSIDER IV TO PO CONVERSION FOR DOXYCYCLINE (PT IS TOLERATING FOOD AND ORAL MEDICATIONS ) YUMIKO STEWART PHARMACIST Apr 23, 2024 18:08
[2024-04-23] MEDS: traZODone HCL 50 MG TAB PO SCH (21:23)
--- NOTE | 2024-04-23 23:33 | DVHPN2 ---
Progress Note - Dictate Date Seen: Apr 23, 2024 Has the PT tested + for MRSA If YES, has PT been informed?: No Medical Necessity Reason Pt with a Central, PICC or Fol: No Subjective Patient seen and examined at bedside. Remains on supplemental oxygen Overnight events reviewed. vital signs Vital Sign Date Time Temp Pulse Resp B/P (MAP) Pulse Ox O2 Delivery O2 Flow Rate FiO2 04/23/24 21:24 149/99 04/23/24 20:56 98.4 85 16 77 98.4 04/23/24 18:10 Oxymizer 4 N/A Total Intake and Output 04/22/24 04/22/24 04/23/24 15:00 23:00 07:00 Intake Total 360 ml 350 ml Balance 360 ml 350 ml medications Current Medications Medications Dose Ordered Sig/Nereyda Route Start Time Stop Time Status Last Admin Dose Admin Acetaminophen/ Hydrocodone Bitart 1 tab Q4HP PRN PO 04/21/24 08:45 04/22/24 01:58 1 TAB Ondansetron HCl 4 mg Q4HP PRN IV 04/21/24 08:45 Acetaminophen 650 mg Q6HP PRN PO 04/21/24 08:45 04/22/24 05:54 650 MG Nitroglycerin 0.4 mg Q5MINP PRN SL 04/21/24 08:45 Bupropion HCl 75 mg BID PO 04/21/24 10:00 04/23/24 21:28 75 MG Duloxetine HCl 30 mg DAILY PO 04/21/24 10:00 04/23/24 09:22 30 MG Minoxidil 2.5 mg BID PO 04/21/24 10:00 04/22/24 11:00 2.5 MG Nifedipine 60 mg BID PO 04/21/24 10:00 04/23/24 21:22 60 MG Pantoprazole Sodium 40 mg DAILY PO 04/21/24 10:00 04/23/24 09:22 40 MG Aspirin 81 mg DAILY PO 04/21/24 10:00 04/23/24 09:22 81 MG Atorvastatin Calcium 40 mg HS PO 04/21/24 22:00 04/23/24 21:21 40 MG Hydralazine HCl 50 mg QID PO 04/21/24 12:00 04/23/24 21:24 50 MG Apixaban 2.5 mg BID PO 04/21/24 22:00 04/23/24 21:21 2.5 MG Diagnostic Test (Pha) 1 strip ACHS 04/22/24 11:30 04/23/24 21:32 1 STRIP Insulin Human Regular ACHS SC 04/22/24 11:30 04/23/24 21:38 3 UNITS Dextrose 50 ml UD PRN IV 04/22/24 10:15 Ceftriaxone Sodium 50 ml @ 100 mls/hr DAILY@09 IV 04/23/24 09:00 04/23/24 08:28 100 MLS/HR Doxycycline Hyclate 250 ml @ 125 mls/hr Q12H IV 04/22/24 15:15 04/23/24 16:02 125 MLS/HR Albuterol 2.5 mg Q6HR NEB 04/22/24 18:00 04/23/24 18:33 2.5 MG Albuterol 2.5 mg Q3HPRN PRN NEB 04/22/24 15:15 04/22/24 20:15 2.5 MG Ipratropium [place] 0.5 mg Q6HR NEB 04/22/24 18:00 04/23/24 18:33 0.5 MG Lactulose 30 ml DAILY PRN PO 04/22/24 15:15 Methylprednisolone Sodium Succinate 40 mg Q12H IV 04/22/24 17:00 04/23/24 17:28 40 MG Trazodone HCl 50 mg HS PO 04/23/24 22:00 04/23/24 21:23 50 MG objective Gen.: Patient lying in bed in no apparent distress. On supplemental oxygen. Head: Normocephalic, atraumatic. Eyes: EOMI/PERRLA. Ears: Normal hearing. Normal anatomy. Neck/trachea: Trachea midline, supple. Nose: Normal external anatomy. Mouth: Moist mucous membranes. Chest: Decreased air entry bilaterally. No wheezing or rhonchi. Cardiovascular: Positive S1, positive S2. Regular rate and rhythm. Abdomen: Positive bowel sounds in all 4 quadrants. Soft, non-tender, non- distended. : Deferred. Rectal: Deferred. Skin: Warm, dry. Intact. Extremities: 2+ radial pulses bilaterally. No lower extremity edema. Neuro: Awake, alert, oriented x3. No gross motor or sensory deficits. Cranial nerves II through XII intact. Gait not assessed. laboratory and microbiology Laboratory Tests 04/23/24 07:43 Test 04/23/24 07:43 Range/Units Serum Glucose 196 H 74-106 mg/dL Assessment/Plan Impression Acute on chronic hypoxic respiratory failure Pleural effusion Atelectasis End-stage renal disease, on hemodialysis Pulmonary edema Pneumonia Congestive heart failure Events: Remains on supplemental oxygen, 4 LPM NC Taper O2 as tolerated Improved O2 requirements. Continue antibiotics Continue bronchodilators Continue IV steroids Incentive spirometry Accu-Cheks, ISS. HD per nephrology Monitor renal function. Monitor electrolytes. Supplement as necessary. Labs and imaging reviewed. Rest of plan as noted below. Plan: Supplemental oxygen Titrate to keep O2 sats above 92%. CXR demonstrated cardiomegaly. Prominent bilateral interstitial markings and patchy airspace opacity in the right lower lung. Possible small right pleural effusion. No pneumothorax. Continue antibiotics Eliquis Continue statin Incentive spirometry Pain control Avoid oversedation Hemodialysis per Nephrology Monitor renal function. Monitor electrolytes. Supplement as necessary. Monitor ins and outs. Protonix for GI prophylaxis Lovenox for DVT prophylaxis Prognosis: Poor given patient's multiple co-morbidities. Rest of plan per hospitalist and other consultants. Thank you Dr. Camila Hill MD, for allowing me to participate in this patient's care. Further recommendations will depend on the patient's clinical course. Please do not hesitate to contact me if you have any questions or concerns. This medical document was created using an electronic medical record system with [employer] dictation system. Although these documentations are being carefully reviewed, there may still be some phonetic and typographical changes. The errors are purely typographical, due to imperfection on the software program, and do not reflect any compromise in the patient's medical care. Plan discussed with: Patient, Other (RN) JUAN SALDAÑA MD Apr 23, 2024 23:33
[2024-04-24] VITALS (17 sets, daily range): BP systolic 134–183; BP diastolic 46–109; PULSE 78–92; RESP 16–22; TEMP 97.7–98.5; O2SAT 92–100
[2024-04-24] MEDS: SODIUM CHL 0.9% 1000 ML BAG XX ONE (07:00)
[2024-04-24 07:16] LABS: Basophils # (auto) 0 10 ^3/uL (0-0.2); Basophils % (auto) 0.2 % (0.0-2.0); Eosinophils # (auto) 0 10 ^3/uL (0-0.8); Eosinophils % (auto) 0.1 % (0.0-7.0); Hematocrit 27.3 % (41.0-53.0); Lymphocytes # (auto) 0.7 10 ^3/uL (0.4-5.4); Lymphocytes % (auto) 10.4 % (10.0-50.0); Mean Corpuscular Hemoglobin 28.6 pg (28.0-32.0); Mean Corpuscular Hgb Conc. 32.8 g/dL (32.0-36.0); Mean Corpuscular Volume 87.1 fL (80.0-100.0); Monocytes # (auto) 0.8 10 ^3/uL (0-1.3); Monocytes % (auto) 11.8 % (0.0-12.0); Neutrophils % (auto) 77.5 % (37.0-80.0); Nucleated Red Blood Cells % 0.3 %; Platelet Count (auto) 266 10^3/uL (140-450); Red Blood Cells 3.14 10^6/uL (4.5-5.90); White Blood Cell 6.5 10^3/uL (4.4-10.8)
[2024-04-24 07:24] LABS: Red Cell Distribution Width 24.6 % (11.8-14.3)
[2024-04-24 07:30] LABS: % Iron Saturation 53.4 % (20-55)
[2024-04-24 07:31] LABS: Albumin 3.9 g/dL (3.2-4.8); Alkaline Phosphatase 77 U/L (46-116); Anion Gap 12 (5-15); Aspartate Aminotransferase 13 U/L (13-40); BUN/Creatinine Ratio 6.5 (10.0-20.0); Calcium 10.1 mg/dL (8.7-10.4); Carbon Dioxide 29 mmol/L (20-31); Potassium 4.5 mmol/L (3.5-5.1); Total Protein 7.6 g/dL (5.7-8.2)
[2024-04-24 07:35] LABS: Alanine Aminotransferase < 9 U/L (7-40); Bilirubin, Total < 0.2 mg/dL (0.2-1.0); Blood Urea Nitrogen 41 mg/dL (9-23); Chloride 93 mmol/L (98-107); Glucose 164 mg/dL (74-106); Sodium 134 mmol/L (136-145)
[2024-04-24 09:49] LABS: Anisocytosis Slight
[2024-04-24 09:50] LABS: Platelet Estimate Adequate; Target Cell FEW
[2024-04-24] MEDS: buPROPion HCL 75 MG TAB PO SCH (10:00)
--- NOTE | 2024-04-24 10:09 | DVH ---
CHEST RADIOGRAPH Indication: fu Technique: Single frontal view of the chest was obtained Comparison: XY CHEST PORTABLE on DOS: 04/23/24, XY CHEST PORTABLE on DOS: 04/21/24, XY CHEST XRAY 1 EW on DOS: 03/09/24, XY CHEST PORTABLE on DOS: 03/06/24, XY CHEST PORTABLE on DOS: 03/05/24, XY CHEST PORTABLE on DOS: 04/23/24 FINDINGS: Lines and tubes: A tunnled HD catheter is seen. Cardiomediastinal silhouette: enlarged Pulmonary vasculature: prominent Lung expansion: low Lung airspace: multifocal bilateral airspace opacity Lung interstitium: increased Pleura: normal Pneumothorax: no Bones: Unremarkable Other: no IMPRESSION: Cardiomegaly with pulmonary vascular congestion and probable mild interstitial edema.
--- NOTE | 2024-04-24 14:43 | DVH ---
EXAM: CT HEAD WITHOUT CONTRAST HISTORY: altered mental COMPARISON: CT HEAD WITHOUT CONTRAST on DOS: 02/24/24, CT HEAD WITHOUT CONTRAST on DOS: 10/27/23, CT HEA D WITHOUT CONTRAST on DOS: 09/30/23 TECHNIQUE: Axial images were obtained and reformatted in coronal and sagittal planes. All CT scans at this medical facility are performed using dose modulation techniques as appropriate t o a performed exam including the following: Automated exposure control was utilized; adjustment of th e MA and/or KV according to patient size; and use of iterative reconstruction technique. CT Dose: CTDI volume is 68.18 mGy. Dose-length product is 1343.28 mGy*cm FINDINGS: Supratentorial Region: No evidence for large acute territorial ischemia. No intracranial hemorrhage is noted. Confluent white matter hypoattenuating foci are noted bilaterally, which typically reflect chronic microvascular ischemic changes. Posterior Fossa: No acute abnormality. Brainstem: Unremarkable. Sellar/Suprasellar Region: Unremarkable. Ventricles, Cisterns, Sulci: Age-appropriate. Orbits: Unremarkable. Paranasal Sinuses: Unremarkable. Mastoid Air Cells: Partial opacification of the right mastoid air cells. Vasculature: Unremarkable. Bones/Soft Tissues: No acute abnormality. Other: Cerumen noted in the bilateral external auditory canals. IMPRESSION: 1. No acute intracranial process. 2. Small right mastoid effusion. 3. Cerumen in the bilateral external auditory canals noted.
--- NOTE | 2024-04-24 15:00 | DVHPN2 ---
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) Changes from previous H/P or p: Changes Objective Vitals Vital Signs Date Time Temp Pulse Resp B/P (MAP) Pulse Ox O2 Delivery O2 Flow Rate FiO2 04/24/24 13:45 176/78 04/24/24 13:08 88 20 98 04/24/24 13:02 Simple Mask* 10 99 04/24/24 09:00 97.7 97.7 Intake/Output Intake and Output 04/24/24 07:00 Intake Total 705 ml Balance 705 ml Intake Oral 705 ml General Appearance: Alert, Cooperative, mild distress HEENT: Atraumatic Lungs: Other (Few crackles bilateral lungs and fair air entry with mild wheezes bilateral lower hernandez) Cardiovascular: Regular rate Abdomen: Normal bowel sounds, Soft, No tenderness Extremities: No edema Medications Current Medications Medications Dose Ordered Sig/Nereyda Route Start Time Stop Time Status Last Admin Dose Admin Acetaminophen/ Hydrocodone Bitart 1 tab Q4HP PRN PO 04/21/24 08:45 04/22/24 01:58 1 TAB Ondansetron HCl 4 mg Q4HP PRN IV 04/21/24 08:45 Acetaminophen 650 mg Q6HP PRN PO 04/21/24 08:45 04/22/24 05:54 650 MG Nitroglycerin 0.4 mg Q5MINP PRN SL 04/21/24 08:45 Duloxetine HCl 30 mg DAILY PO 04/21/24 10:00 04/24/24 13:43 30 MG Minoxidil 2.5 mg BID PO 04/21/24 10:00 04/22/24 11:00 2.5 MG Nifedipine 60 mg BID PO 04/21/24 10:00 04/24/24 13:45 60 MG Pantoprazole Sodium 40 mg DAILY PO 04/21/24 10:00 04/24/24 13:42 40 MG Aspirin 81 mg DAILY PO 04/21/24 10:00 04/24/24 13:42 81 MG Atorvastatin Calcium 40 mg HS PO 04/21/24 22:00 04/23/24 21:21 40 MG Hydralazine HCl 50 mg QID PO 04/21/24 12:00 04/24/24 13:45 50 MG Apixaban 2.5 mg BID PO 04/21/24 22:00 04/24/24 13:43 2.5 MG Diagnostic Test (Pha) 1 strip ACHS 04/22/24 11:30 04/24/24 13:49 1 STRIP Insulin Human Regular ACHS SC 04/22/24 11:30 04/24/24 06:32 3 UNITS Dextrose 50 ml UD PRN IV 04/22/24 10:15 Ceftriaxone Sodium 50 ml @ 100 mls/hr DAILY@09 IV 04/23/24 09:00 04/24/24 13:42 100 MLS/HR Doxycycline Hyclate 250 ml @ 125 mls/hr Q12H IV 04/22/24 15:15 04/24/24 03:35 125 MLS/HR Albuterol 2.5 mg Q6HR NEB 04/22/24 18:00 04/24/24 13:02 2.5 MG Albuterol 2.5 mg Q3HPRN PRN NEB 04/22/24 15:15 04/22/24 20:15 2.5 MG Ipratropium [place] 0.5 mg Q6HR NEB 04/22/24 18:00 04/24/24 13:02 0.5 MG Lactulose 30 ml DAILY PRN PO 04/22/24 15:15 Methylprednisolone Sodium Succinate 40 mg Q12H IV 04/22/24 17:00 04/24/24 05:44 40 MG Trazodone HCl 50 mg HS PO 04/23/24 22:00 04/23/24 21:23 50 MG Bupropion HCl 75 mg DAILY PO 04/24/24 10:00 Laboratory Results Laboratory Tests 04/24/24 06:31 Chemistry Test 04/24/24 06:31 Albumin 3.9 g/dL (3.2-4.8) Calcium Level 10.1 mg/dL (8.7-10.4) Total Protein 7.6 g/dL (5.7-8.2) LFT Test 04/24/24 06:31 Alanine Aminotransferase (ALT) < 9 U/L (7-40) Alkaline Phosphatase 77 U/L (46-116) Aspartate Amino Transferase (AST) 13 U/L (13-40) Total Bilirubin < 0.2 mg/dL (0.2-1.0) L Microbiology Microbiology Date/Time Source Procedure Growth Status 04/21/24 08:23 Blood Blood Culture - Preliminary NO GROWTH AFTER 72 HOURS OF INCUBATION. Resulted Assessment/Plan Assessment/Plan Acute hypoxic respiratory failure Acute metabolic encephalopathy Pulmonary edema End-stage renal disease on hemodialysis Hyperkalemia History of heart failure History of COPD Diabetes type 2 Anxiety and depression Hypertension Coronary artery disease Pulmonary hypertension History of DVT of the right arm History of GI bleed Elevated troponin, NSTEMI Plan Hemodialysis was done today WBCs are normal, chest x-ray shows pulmonary edema, no evidence of infection Continue IV antibiotics Start p.o. doxycycline Continue IV steroids Med neb treatments Oxygen as needed Eliquis Monitor his electrolytes closely Physical therapy Plan discussed with: Patient Date of Service: Apr 24, 2024 Billing Provider: PETER LAMAR MD Common Visit Codes: NOT BILLABLE PETER LAMAR MD Apr 24, 2024 15:00
--- NOTE | 2024-04-24 16:05 | DVHPN2 ---
Progress Note - Dictate Date Seen: Apr 24, 2024 Has the PT tested + for MRSA If YES, has PT been informed?: No Medical Necessity Reason Pt with a Central, PICC or Fol: No Subjective s/p HD this AM vital signs Vital Sign Date Time Temp Pulse Resp B/P (MAP) Pulse Ox O2 Delivery O2 Flow Rate FiO2 04/24/24 13:45 176/78 04/24/24 13:08 88 20 98 04/24/24 13:02 Simple Mask* 10 99 04/24/24 13:00 97.8 97.8 Total Intake and Output 04/23/24 04/23/24 04/24/24 15:00 23:00 07:00 Intake Total 455 ml 250 ml Balance 455 ml 250 ml medications Current Medications Medications Dose Ordered Sig/Nereyda Route Start Time Stop Time Status Last Admin Dose Admin Acetaminophen/ Hydrocodone Bitart 1 tab Q4HP PRN PO 04/21/24 08:45 04/22/24 01:58 1 TAB Ondansetron HCl 4 mg Q4HP PRN IV 04/21/24 08:45 Acetaminophen 650 mg Q6HP PRN PO 04/21/24 08:45 04/22/24 05:54 650 MG Nitroglycerin 0.4 mg Q5MINP PRN SL 04/21/24 08:45 Duloxetine HCl 30 mg DAILY PO 04/21/24 10:00 04/24/24 13:43 30 MG Minoxidil 2.5 mg BID PO 04/21/24 10:00 04/22/24 11:00 2.5 MG Nifedipine 60 mg BID PO 04/21/24 10:00 04/24/24 13:45 60 MG Pantoprazole Sodium 40 mg DAILY PO 04/21/24 10:00 04/24/24 13:42 40 MG Aspirin 81 mg DAILY PO 04/21/24 10:00 04/24/24 13:42 81 MG Atorvastatin Calcium 40 mg HS PO 04/21/24 22:00 04/23/24 21:21 40 MG Hydralazine HCl 50 mg QID PO 04/21/24 12:00 04/24/24 13:45 50 MG Apixaban 2.5 mg BID PO 04/21/24 22:00 04/24/24 13:43 2.5 MG Diagnostic Test (Pha) 1 strip ACHS 04/22/24 11:30 12/2/24 13:49 1 STRIP Insulin Human Regular ACHS SC 04/22/24 11:30 04/24/24 11:30 4 UNITS Dextrose 50 ml UD PRN IV 04/22/24 10:15 Albuterol 2.5 mg Q6HR NEB 04/22/24 18:00 04/24/24 13:02 2.5 MG Albuterol 2.5 mg Q3HPRN PRN NEB 04/22/24 15:15 04/22/24 20:15 2.5 MG Ipratropium [place] 0.5 mg Q6HR NEB 04/22/24 18:00 04/24/24 13:02 0.5 MG Lactulose 30 ml DAILY PRN PO 04/22/24 15:15 Methylprednisolone Sodium Succinate 40 mg Q12H IV 04/22/24 17:00 04/24/24 05:44 40 MG Trazodone HCl 50 mg HS PO 04/23/24 22:00 04/23/24 21:23 50 MG Bupropion HCl 75 mg DAILY PO 04/24/24 10:00 04/24/24 10:00 75 MG objective Gen: NAD HEENT: NC, AT Lungs: CTA b/l Cardiac: RRR Abd: soft Ext: no edema Neuro: no focal deficits laboratory and microbiology Laboratory Tests 04/24/24 06:31 Test 04/24/24 06:31 Range/Units Serum Glucose 164 H 74-106 mg/dL Assessment/Plan Assessment/Plan ASSESSMENT AND PLAN: End-stage renal disease on HD pneumonia. Hyponatremia HTN Anemia of renal disease. Metabolic acidosis Plan: s/p HD today- Wednesday. net UF 3.5 L Next HD on Wednesday Continue Epogen dose Follow blood cultures IV antibiotics Plan discussed with: Patient SANDOVAL INTERIANO MD Apr 24, 2024 16:05
--- NOTE | 2024-04-24 20:24 | DVHPN2 ---
Progress Note - Dictate Date Seen: Apr 24, 2024 Has the PT tested + for MRSA If YES, has PT been informed?: No Medical Necessity Reason Pt with a Central, PICC or Fol: No Subjective Patient seen and examined at bedside. Remains on supplemental oxygen Overnight events reviewed. vital signs Vital Sign Date Time Temp Pulse Resp B/P (MAP) Pulse Ox O2 Delivery O2 Flow Rate FiO2 04/24/24 17:59 183/79 04/24/24 16:41 98.5 83 20 93 98.5 04/24/24 13:02 Simple Mask* 10 99 Total Intake and Output 04/23/24 04/23/24 04/24/24 15:00 23:00 07:00 Intake Total 455 ml 250 ml Balance 455 ml 250 ml medications Current Medications Medications Dose Ordered Sig/Nereyda Route Start Time Stop Time Status Last Admin Dose Admin Acetaminophen/ Hydrocodone Bitart 1 tab Q4HP PRN PO 04/21/24 08:45 04/22/24 01:58 1 TAB Ondansetron HCl 4 mg Q4HP PRN IV 04/21/24 08:45 Acetaminophen 650 mg Q6HP PRN PO 04/21/24 08:45 04/22/24 05:54 650 MG Nitroglycerin 0.4 mg Q5MINP PRN SL 04/21/24 08:45 Duloxetine HCl 30 mg DAILY PO 04/21/24 10:00 04/24/24 13:43 30 MG Minoxidil 2.5 mg BID PO 04/21/24 10:00 04/24/24 15:00 2.5 MG Nifedipine 60 mg BID PO 04/21/24 10:00 04/24/24 13:45 60 MG Pantoprazole Sodium 40 mg DAILY PO 04/21/24 10:00 04/24/24 13:42 40 MG Aspirin 81 mg DAILY PO 04/21/24 10:00 04/24/24 13:42 81 MG Atorvastatin Calcium 40 mg HS PO 04/21/24 22:00 04/23/24 21:21 40 MG Hydralazine HCl 50 mg QID PO 04/21/24 12:00 04/24/24 17:59 50 MG Apixaban 2.5 mg BID PO 04/21/24 22:00 04/24/24 13:43 2.5 MG Diagnostic Test (Pha) 1 strip ACHS 04/22/24 11:30 04/24/24 18:00 1 STRIP Insulin Human Regular ACHS SC 04/22/24 11:30 04/24/24 11:30 4 UNITS Dextrose 50 ml UD PRN IV 04/22/24 10:15 Albuterol 2.5 mg Q6HR NEB 04/22/24 18:00 04/24/24 18:38 2.5 MG Albuterol 2.5 mg Q3HPRN PRN NEB 04/22/24 15:15 04/22/24 20:15 2.5 MG Ipratropium [place] 0.5 mg Q6HR NEB 04/22/24 18:00 04/24/24 18:38 0.5 MG Lactulose 30 ml DAILY PRN PO 04/22/24 15:15 Methylprednisolone Sodium Succinate 40 mg Q12H IV 04/22/24 17:00 04/24/24 17:59 40 MG Trazodone HCl 50 mg HS PO 04/23/24 22:00 04/23/24 21:23 50 MG Bupropion HCl 75 mg DAILY PO 04/24/24 10:00 04/24/24 10:00 75 MG objective Gen.: Patient lying in bed in no apparent distress. On supplemental oxygen. Head: Normocephalic, atraumatic. Eyes: EOMI/PERRLA. Ears: Normal hearing. Normal anatomy. Neck/trachea: Trachea midline, supple. Nose: Normal external anatomy. Mouth: Moist mucous membranes. Chest: Decreased air entry bilaterally. No wheezing or rhonchi. Cardiovascular: Positive S1, positive S2. Regular rate and rhythm. Abdomen: Positive bowel sounds in all 4 quadrants. Soft, non-tender, non- distended. : Deferred. Rectal: Deferred. Skin: Warm, dry. Intact. Extremities: 2+ radial pulses bilaterally. No lower extremity edema. Neuro: Awake, alert, oriented x3. No gross motor or sensory deficits. Cranial nerves II through XII intact. Gait not assessed. laboratory and microbiology Laboratory Tests 04/24/24 06:31 Test 04/24/24 06:31 Range/Units Serum Glucose 164 H 74-106 mg/dL Assessment/Plan Impression Acute on chronic hypoxic respiratory failure Pleural effusion Atelectasis End-stage renal disease, on hemodialysis Pulmonary edema Pneumonia Congestive heart failure Events: Remains on supplemental oxygen, 5 LPM Oxymizer Taper O2 as tolerated Hemodialysis today. Overnight, patient had increased O2 requirements. Continue antibiotics Continue bronchodilators Continue IV steroids Incentive spirometry HD per nephrology Monitor renal function. Monitor electrolytes. Supplement as necessary. Labs and imaging reviewed. Rest of plan as noted below. Plan: Supplemental oxygen Titrate to keep O2 sats above 92%. CXR demonstrated cardiomegaly. Prominent bilateral interstitial markings and patchy airspace opacity in the right lower lung. Possible small right pleural effusion. No pneumothorax. Continue antibiotics Eliquis Continue statin Incentive spirometry Pain control Avoid oversedation Hemodialysis per Nephrology Monitor renal function. Monitor electrolytes. Supplement as necessary. Monitor ins and outs. Accu-Cheks, insulin sliding scale PRN. Protonix for GI prophylaxis Lovenox for DVT prophylaxis Prognosis: Poor given patient's multiple co-morbidities. Rest of plan per hospitalist and other consultants. Thank you Dr. Camila Hill MD, for allowing me to participate in this patient's care. Further recommendations will depend on the patient's clinical course. Please do not hesitate to contact me if you have any questions or concerns. This medical document was created using an electronic medical record system with [employer] dictation system. Although these documentations are being carefully reviewed, there may still be some phonetic and typographical changes. The errors are purely typographical, due to imperfection on the software program, and do not reflect any compromise in the patient's medical care. Plan discussed with: Patient, Other (HANS Cruz) JUNA SALDAÑA MD Apr 24, 2024 20:24
--- NOTE | 2024-04-24 21:08 | DVHINCON2 ---
Date of service: Apr 24, 2024 Referring Physician Barbara Motley Reason for Consultation Altered History of Present Illness Mr. 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 At this time, he is awake, only oriented to himself, he follows verbal commands if he understands, no family available for the history I saw him on 09/16/2023 for from anoxia, prolonged downtime, 03/07/2024 for ALOC Because of shortness breath, since 04/20/2024, the patient was brought to the hospital, and the patient was confirmed to have respiratory distress, with oxygen saturation down to low 90s I suspect tremors in the hands. His sitter reports shaking in the body The patient was long history of cognitive dysfunction, according to my office note, the patient was suspected to have mild cognitive dysfunction in the [facility] in 2019. relates his problem is progressive, affecting the short-term memory, he does not remember what was done or discussed recently, but he still remember major events such as his hemodilution schedule [phone], gene, no answer. [phone], no answer ABG, 04/21/2024: Respiratory alkalosis, hypoxia Blood culture, 04/21/2024: No growth WBC/HB/PLT/MCV, 03/07/24: 4.8/8.2/229/79, 04/24/2024: 6.5/9/266/87.1 BUN/CR, 03/07/2024: 20/5.71 04/24/2024: 41/6.27 Liver function tests, 03/07/2024: Unremarkable, 04/24/2024: Unremarkable TG/CHO L/LDL/HDL, 08/2023: 100/94/45/28 Vitamin B12, 03/07/2024: 1030 Folic acid, 03/07/2024: 11.4 TSH, 09/11/2023: 2.5 EEG, 09/17/2023: mildly abnormal EEG Extremity venous study, 09/26/2023: Thrombus visualized within the right internal jugular vein, right basilic vein, and right cephalic vein. Per construction contractor's note the patient's physician and nurse have been informed of the findings. EGD, 03/01/2024: 1. There was a moderate amount of old blood and clot in the cardia and fundus of the stomach that could not be dislodged or mobilized 2. Mild gastritis ; no esophageal varices or esophagitis 3. Moderate duodenitis of the duodenal bulb with erosions and tiny ulcers with a duodenal polyp from which multiple biopsies were obtained 4. Otherwise normal examination up to the 2nd and 3rd part of the duodenal with no active bleeding and no active source of GI bleed identified Chest X-ray, 04/24/2024: Cardiomegaly with pulmonary vascular congestion and probable mild interstitial edema CT head, 09/14/2023: No acute intracranial abnormality CT head, 09/17/2023: No evidence of acute intracranial abnormality CT head, 02/24/2024: No acute intracranial abnormality. Right mastoiditis CT head, 04/24/24: 1. No acute intracranial process. 2. Small right mastoid effusion. 3. Cerumen in the bilateral external auditory canals noted Past Medical History Hypertension, diabetes, congestive heart failure, cardiopulmonary arrest, COPD, end-stage renal failure, chronic DVT, GI bleeding (02/29/24) Past Surgical History Tonsillectomy, hernia repair, pacemaker insertion Family History: Family history: Cardiovascular disease G8 BROTHER Family history: Diabetes mellitus G8 MOTHER G8 FATHER G8 BROTHER Family history: Hypertension G8 MOTHER G8 FATHER G8 BROTHER Stroke G8 MOTHER Family History Hypertension, diabetes, heart disease, stroke, Alzheimer's disease Social History He was a tobacco smoker, a drug and alcohol abuser Allergies: Coded Allergies: Lisinopril (Verified Adverse Reaction, Severe, ANGIOEDEMA, 09/23/23) FACE,TONGUE, LIP SWELLING Home Meds Active Scripts Apixaban Base (ELIQUIS) 2.5 Mg Tab, 2.5 MG PO BID for 30 Days, #60 TAB 3 Refills Prov:PETER LAMAR MD 11/03/23 Reported Medications Pantoprazole Sodium Sesquihydr (Protonix) 40 Mg Tab, 40 MG PO DAILY, #30 TAB 10/28/23 Amlodipine Besylate (NORVASC TABLET) 5 Mg Tb, 10 MG PO DAILY, TAB 10/28/23 Docusate Sodium (Colace) 100 Mg Cap, 100 MG PO BIDPRN PRN for FOR CONSTIPATION, CAP 10/28/23 Bupropion HCl (Bupropion Hydrochloride) 75 Mg Tab, 75 MG PO BID, TAB 10/28/23 Atorvastatin Calcium (ATORVASTATIN CALCIUM) 40 Mg Tab, 1 TAB PO QPM, #90 TAB 3 Refills 10/28/23 Minoxidil (Loniten) 2.5 Mg Tb, 1 TAB PO BID 09/15/23 Omeprazole (Gnp Omeprazole) 20 Mg Tab, 1 TAB PO DAILY 09/15/23 Hydralazine Hcl (Hydralazine Hcl) 50 Mg Tab, 1 TAB PO QID 09/15/23 Aspirin (Aspirin Low Dose) 81 Mg Chw, 1 TAB PO DAILY 09/15/23 Hydrocodone-Acetaminophen (Hydrocodone Bitartrate/AC 5-325 mg) 1 Tab Tab, 1 TAB PO Q6HP PRN for PAIN SCALE 7 THRU 10 09/15/23 Benzonatate (Benzonatate) 100 Mg Cap, 1 CAP PO TID PRN for COUGH for 10 Days, #30 09/15/23 Nitroglycerin (Nitrostat) 0.4 Mg Sub, 1 TAB SL Q5MIN PRN for CHEST PAIN for 30 Days, #25 09/15/23 Nifedipine (Nifedipine Er) 30 Mg Tab, 2 TAB PO BID 09/15/23 Duloxetine HCl (Duloxetine HCl) 30 Mg Cap, 1 CAP PO DAILY 09/15/23 Current Medications Current Medications Medications (Trade) Dose Ordered Sig/Nereyda Route PRN Reason Start Time Stop Time Status Last Admin Trazodone HCl (Desyrel) 50 mg HS PO 04/23/24 22:00 04/23/24 21:23 Bupropion HCl (Wellbutrin Tablet) 75 mg DAILY PO 04/24/24 10:00 04/24/24 10:00 Review of Systems As above, the other systems are negative Vital Signs Vital Signs Date Time Temp Pulse Resp B/P (MAP) Pulse Ox O2 Delivery O2 Flow Rate FiO2 04/24/24 20:00 Simple Mask* 5 N/A Oxymizer 04/24/24 18:38 98 04/24/24 18:38 81 20 04/24/24 17:59 183/79 04/24/24 16:41 98.5 98.5 Physical Exam GENERAL EXAM: General: the patient is well developed and nourished. No acute distress. HEENT: Normocephalic, neck is supple, no carotid bruits. No mass. RESPIRATORY: Normal respiratory effort with symmetrical lung expansion. Lungs clear to auscultation. CARDIOVASCULAR: Regular rate and rhythm with no murmurs. S1, S2. ABDOMEN: Soft, nontender, normal bowel sound NEUROLOGICAL: MENTAL STATUS: HPI SPEECH, LANGUAGE, HIGHER CORTICAL FUNCTION: no aphasia or dysathria. CRANIAL NERVES: #2: Intact visual hernandez to confrontation. #3,4,6: Pupils are equal, round and reactive. EOMs full and conjugate. #5: Facial sensation intact in all three divisions bilaterally. Mandibular strength intact. #7: Facial muscles symmetrical and strength intact. #8: Hearing grossly normal to voice. #9,10: Uvula and soft palate rise in the midline. Swallow and voice are normal. #11: Trapezius and sternomastoid strength intact bilaterally. #12: Tongue midline. No fasciculations or atrophy. SENSATION: Sensation to touch and pinprick is normal. MOTOR: Normal tone in the upper and lower extremity. Normal muscle bulk. No fasciculations. Questionable tremors in the hands. Muscle strength of the major groups in the upper extremities is no less than 4/5. Muscle strength of the major groups in the lower extremities is no less than 3/5. REFLEXES: Deep tendon reflexes are symmetrical. No pathological reflexes. CEREBELLAR/COORDINATION: No ataxia GAIT/STATION: deferred. Labs/Diagnostic Data Labs Test 04/24/24 18:01 04/24/24 06:31 04/23/24 07:43 04/22/24 16:30 Range/Units POC Glucose 100 70-106 mg/dl White Blood Count 6.5 # 4.4-10.8 10^3/uL Red Blood Count 3.14 L 4.5-5.90 10^6/uL Hemoglobin 9.0 L 13.5-17.5 g/dL Hematocrit 27.3 L 41.0-53.0 % Mean Corpuscular Volume 87.1 80.0-100.0 fL Mean Corpuscular Hemoglobin 28.6 28.0-32.0 pg Mean Corpuscular Hemoglobin Concent 32.8 32.0-36.0 g/dL Red Cell Distribution Width 24.6 H 11.8-14.3 % Platelet Count 266 140-450 10^3/uL Mean Platelet Volume 7.2 6.9-10.8 fL Neutrophils (%) (Auto) 77.5 37.0-80.0 % Lymphocytes (%) (Auto) 10.4 10.0-50.0 % Monocytes (%) (Auto) 11.8 0.0-12.0 % Eosinophils (%) (Auto) 0.1 0.0-7.0 % Basophils (%) (Auto) 0.2 0.0-2.0 % Neutrophils # (Auto) 5.0 1.6-8.6 10 ^3/uL Lymphocytes # (Auto) 0.7 0.4-5.4 10 ^3/uL Monocytes # (Auto) 0.8 0-1.3 10 ^3/uL Eosinophils # (Auto) 0 0-0.8 10 ^3/uL Basophils # (Auto) 0 0-0.2 10 ^3/uL Nucleated Red Blood Cells 0.3 % Platelet Estimate Adequate Anisocytosis (manual) Slight Microcytosis Slight Target Cells Few Sodium Level 134 L 136-145 mmol/L Potassium Level 4.5 3.5-5.1 mmol/L Chloride Level 93 L 98-107 mmol/L Carbon Dioxide Level 29 20-31 mmol/L Anion Gap 12 5-15 Blood Urea Nitrogen 41 #H 9-23 mg/dL Creatinine 6.27 H 0.700-1.30 mg/dL Glomerular Filtration Rate Calc 8 >90 mL/min BUN/Creatinine Ratio 6.5 L 10.0-20.0 Serum Glucose 164 H 74-106 mg/dL Calcium Level 10.1 8.7-10.4 mg/dL Iron Level 79 65-175 ug/dL Total Iron Binding Capacity 148 L 250-425 ug/dL Percent Iron Saturation 53.4 20-55 % Ferritin 940.0 H 22-322 ng/mL Total Bilirubin < 0.2 L 0.2-1.0 mg/dL Aspartate Amino Transferase (AST) 13 13-40 U/L Alanine Aminotransferase (ALT) < 9 7-40 U/L Alkaline Phosphatase 77 46-116 U/L Total Protein 7.6 5.7-8.2 g/dL Albumin 3.9 3.2-4.8 g/dL Ovalocytes Few B-Type Natriuretic Peptide 1428.40 0-100 pg/mL Random Vancomycin Level 30.4 H 5-10 ug/mL Hepatitis B Surface Antigen Negative Negative Test 04/22/24 16:00 04/21/24 10:41 04/21/24 10:35 04/21/24 09:15 Range/Units Influenza Type A Antigen Negative Negative Influenza Type B Antigen Negative Negative SARS-CoV-2 Antigen (Rapid) Negative NEGATIVE Ammonia < 10 L 11-32 umol/L Blood Gas Specimen Type Arterial Blood Gas Sample Site Left radial Blood Gas Patient Temperature 37.0 Arterial Blood Date Drawn [id number] Arterial Blood pH 7.484 H 7.350-7.450 Arterial Blood Partial Pressure CO2 42.7 35.0-48.0 mmHg Arterial Blood Partial Pressure O2 62.8 L 83.0-108.0 mmHg Arterial Blood HCO3 31.4 H 21.0-28.0 mmol/L Arterial Blood Oxygen Saturation 91.3 L 94.0-98.0 % Arterial Blood Base Excess 7.3 H -2.0-3.0 mmol/L Arterial Blood Oxyhemoglobin 89.6 L 94.0-98.0 % Arterial Blood Carboxyhemoglobin 1.2 0.5-1.5 % Arterial Blood Methemoglobin 0.7 0.0-1.5 % Zachery Test Yes Blood Gas Total Hemoglobin 8.40 L 13.5-17.5 g/dL Blood Gas Liter Flow 3.00 Blood Gas Modality Nasal cannula FiO2 % 32.0 Troponin I High Sensitivity 147 *H </=54 ng/L Test 04/21/24 08:23 04/21/24 06:20 Range/Units Lactic Acid Level 0.7 0.4-2.0 mmol/L Phosphorus Level 2.5 2.4-5.1 mg/dL Magnesium Level 1.8 1.6-2.6 mg/dL Microbiology Date/Time Source Procedure Growth Status 04/21/24 08:23 Blood Blood Culture - Preliminary NO GROWTH AFTER 72 HOURS OF INCUBATION. Resulted Assessment Altered mental status Metabolic encephalopathy Hypoxic encephalopathy Pneumonia ? Myoclonus Acute hypoxic respiratory failure Chronic right arm DVT ? Underlying Cognitive dysfunction ? Chronic organic brain syndrome Plan/Recommendation Monitoring Supportive treatment Telemetry EEG IV antibiotics Oxygen Eliquis 2.5 mg b.i.d. GI prophylaxis/pantoprazole 40 mg daily Nephrology on case/hemodialysis More recommendation per clinical course Prognosis: poor This medical document was created using an electronic medical record system with [employer] dictation system. Although this document has been carefully reviewed, there may still be some phonetic and typographical errors. These areas are purely typographical due to imperfections of the software programs, and do not reflect any compromise in the patient's medical care. Plan discussed with: Other NICHOLAS KLEIN MD Apr 24, 2024 21:08
[2024-04-25] VITALS (17 sets, daily range): BP systolic 124–167; BP diastolic 55–77; PULSE 70–94; RESP 16–24; TEMP 97.8–98.3; O2SAT 95–100
[2024-04-25 06:34] LABS: Basophils # (auto) 0 10 ^3/uL (0-0.2); Basophils % (auto) 0.1 % (0.0-2.0); Eosinophils # (auto) 0 10 ^3/uL (0-0.8); Eosinophils % (auto) 0.2 % (0.0-7.0); Hematocrit 29.6 % (41.0-53.0); Hemoglobin 9.6 g/dL (13.5-17.5); Lymphocytes # (auto) 0.9 10 ^3/uL (0.4-5.4); Lymphocytes % (auto) 14.7 % (10.0-50.0); Mean Corpuscular Hemoglobin 28.5 pg (28.0-32.0); Mean Corpuscular Hgb Conc. 32.4 g/dL (32.0-36.0); Mean Corpuscular Volume 87.9 fL (80.0-100.0); Monocytes # (auto) 0.7 10 ^3/uL (0-1.3); Neutrophils # (auto) 4.4 10 ^3/uL (1.6-8.6); Nucleated Red Blood Cells % 0.6 %; Platelet Count (auto) 314 10^3/uL (140-450); Red Blood Cells 3.37 10^6/uL (4.5-5.90); Red Cell Distribution Width 24.3 % (11.8-14.3)
[2024-04-25 06:50] LABS: Alkaline Phosphatase 79 U/L (46-116); Anion Gap 11 (5-15); Aspartate Aminotransferase 11 U/L (13-40); BUN/Creatinine Ratio 7.1 (10.0-20.0); Bilirubin, Total 0.2 mg/dL (0.2-1.0); Blood Urea Nitrogen 33 mg/dL (9-23); Calcium 10.1 mg/dL (8.7-10.4); Carbon Dioxide 31 mmol/L (20-31); Chloride 98 mmol/L (98-107); Glucose 114 mg/dL (74-106); Magnesium 2.2 mg/dL (1.6-2.6); Potassium 4.5 mmol/L (3.5-5.1); Sodium 140 mmol/L (136-145); Total Protein 7.5 g/dL (5.7-8.2)
[2024-04-25 06:53] LABS: Alanine Aminotransferase < 9 U/L (7-40)
[2024-04-25] MEDS ORDERED: ARTIFICIAL TEARS 15ml EACHEYE PRN (08:45)
--- NOTE | 2024-04-25 14:21 | DVHPN2 ---
Subjective More alert and oriented Very weak however Reviewed: Care Plan, H&P, Labs, Medications, Previous Orders, Radiology, Other (Court Attendant) Changes from previous H/P or p: Changes Objective Vitals Vital Signs Date Time Temp Pulse Resp B/P (MAP) Pulse Ox O2 Delivery O2 Flow Rate FiO2 04/25/24 12:43 98.2 78 16 147/77 (100) 96 98.2 04/25/24 11:26 Oxymizer 2 N/A Intake/Output Intake and Output 04/25/24 07:00 Intake Total 1180 ml Balance 1180 ml Intake Oral 1180 ml General Appearance: Alert, Cooperative, mild distress HEENT: Atraumatic Lungs: Other (Few crackles bilateral lungs and fair air entry with mild wheezes bilateral lower hernandez) Cardiovascular: Regular rate Abdomen: Normal bowel sounds, Soft, No tenderness Extremities: No edema Medications Current Medications Medications Dose Ordered Sig/Nereyda Route Start Time Stop Time Status Last Admin Dose Admin Acetaminophen/ Hydrocodone Bitart 1 tab Q4HP PRN PO 04/21/24 08:45 04/22/24 01:58 1 TAB Ondansetron HCl 4 mg Q4HP PRN IV 04/21/24 08:45 Acetaminophen 650 mg Q6HP PRN PO 04/21/24 08:45 04/22/24 05:54 650 MG Nitroglycerin 0.4 mg Q5MINP PRN SL 04/21/24 08:45 Duloxetine HCl 30 mg DAILY PO 04/21/24 10:00 04/25/24 08:31 30 MG Minoxidil 2.5 mg BID PO 04/21/24 10:00 04/25/24 08:33 2.5 MG Nifedipine 60 mg BID PO 04/21/24 10:00 04/25/24 08:32 60 MG Pantoprazole Sodium 40 mg DAILY PO 04/21/24 10:00 04/25/24 08:31 40 MG Aspirin 81 mg DAILY PO 04/21/24 10:00 04/25/24 08:32 81 MG Atorvastatin Calcium 40 mg HS PO 04/21/24 22:00 04/24/24 22:18 40 MG Hydralazine HCl 50 mg QID PO 04/21/24 12:00 04/25/24 12:36 50 MG Apixaban 2.5 mg BID PO 04/21/24 22:00 04/25/24 08:32 2.5 MG Diagnostic Test (Pha) 1 strip ACHS 04/22/24 11:30 04/25/24 12:42 1 STRIP Insulin Human Regular ACHS SC 04/22/24 11:30 04/25/24 12:38 2 UNITS Dextrose 50 ml UD PRN IV 04/22/24 10:15 Albuterol 2.5 mg Q6HR NEB 04/22/24 18:00 04/25/24 11:26 2.5 MG Albuterol 2.5 mg Q3HPRN PRN NEB 04/22/24 15:15 04/22/24 20:15 2.5 MG Ipratropium [place] 0.5 mg Q6HR NEB 04/22/24 18:00 04/25/24 11:26 0.5 MG Lactulose 30 ml DAILY PRN PO 04/22/24 15:15 Methylprednisolone Sodium Succinate 40 mg Q12H IV 04/22/24 17:00 04/24/24 17:59 40 MG Trazodone HCl 50 mg HS PO 04/23/24 22:00 04/24/24 22:19 50 MG Bupropion HCl 75 mg DAILY PO 04/24/24 10:00 04/25/24 08:32 75 MG Artificial Tears 1 drop Q2HP PRN EACHEYE 04/25/24 08:45 Laboratory Results Laboratory Tests 04/25/24 05:21 Chemistry Test 04/25/24 05:21 Albumin 4.0 g/dL (3.2-4.8) Calcium Level 10.1 mg/dL (8.7-10.4) Magnesium Level 2.2 mg/dL (1.6-2.6) Total Protein 7.5 g/dL (5.7-8.2) LFT Test 04/25/24 05:21 Alanine Aminotransferase (ALT) < 9 U/L (7-40) Alkaline Phosphatase 79 U/L (46-116) Aspartate Amino Transferase (AST) 11 U/L (13-40) L Total Bilirubin 0.2 mg/dL (0.2-1.0) Microbiology Microbiology Date/Time Source Procedure Growth Status 04/21/24 08:23 Blood Blood Culture - Preliminary NO GROWTH AFTER 72 HOURS OF INCUBATION. Resulted Assessment/Plan Assessment/Plan Acute hypoxic respiratory failure Acute metabolic encephalopathy Pulmonary edema End-stage renal disease on hemodialysis Hyperkalemia History of heart failure History of COPD Diabetes type 2 Anxiety and depression Hypertension Coronary artery disease Pulmonary hypertension History of DVT of the right arm History of GI bleed Elevated troponin, NSTEMI Plan 04/24/2024: Hemodialysis was done today WBCs are normal, chest x-ray shows pulmonary edema, no evidence of infection Continue IV antibiotics Start p.o. doxycycline Continue IV steroids Med neb treatments Oxygen as needed Eliquis Monitor his electrolytes closely Physical therapy 04/25/2024: Physical therapy Out of bed as tolerated Eliquis IV Solu-Medrol Hemodialysis per Nephrology Discharge planning once physical therapy is done Plan discussed with: Patient, Other My Orders Orders - PETER LAMAR MD Procedure Category Date Status Time Pt Request For Service PT 04/24/24 Logged 14:59 Artificial Tear 15ml PHA 04/25/24 In Process Opthalmic (Tears Na 08:45 Date of Service: Apr 25, 2024 Billing Provider: PETER LAMAR MD Common Visit Codes: NOT BILLABLE PETER LAMAR MD Apr 25, 2024 14:21
--- NOTE | 2024-04-25 15:48 | DVHPN2 ---
Progress Note - Dictate Date Seen: Apr 25, 2024 Has the PT tested + for MRSA If YES, has PT been informed?: No Medical Necessity Reason Pt with a Central, PICC or Fol: No Subjective Mr. 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 I saw him on 09/16/2023 for from anoxia, prolonged downtime, 03/07/2024 for ALOC I have seen and examined the patient, I have discussed with his daytime the nighttime nurses, engine emission technician, the patient was remained about the same mentally, awake, only on oriented to himself 2 spells of uncontrolled whole body shaking, he was responsive to verbal stimuli during the 1st event, but non-responsive during the 2nd event ABG, 04/21/2024: Respiratory alkalosis, hypoxia Blood culture, 04/21/2024: No growth WBC/HB/PLT/MCV, 03/07/24: 4.8/8.2/229/79, 04/24/2024: 6.5/9/266/87.1 BUN/CR, 03/07/2024: 20/5.71 04/24/2024: 41/6.27 Liver function tests, 03/07/2024: Unremarkable, 04/24/2024: Unremarkable TG/CHO L/LDL/HDL, 08/2023: 100/94/45/28 Vitamin B12, 03/07/2024: 1030 Folic acid, 03/07/2024: 11.4 TSH, 09/11/2023: 2.5 EEG, 09/17/2023: mildly abnormal EEG Extremity venous study, 09/26/2023: Thrombus visualized within the right internal jugular vein, right basilic vein, and right cephalic vein. Per pediatric social worker's note the patient's physician and nurse have been informed of the findings. EGD, 03/01/2024: 1. There was a moderate amount of old blood and clot in the cardia and fundus of the stomach that could not be dislodged or mobilized 2. Mild gastritis ; no esophageal varices or esophagitis 3. Moderate duodenitis of the duodenal bulb with erosions and tiny ulcers with a duodenal polyp from which multiple biopsies were obtained 4. Otherwise normal examination up to the 2nd and 3rd part of the duodenal with no active bleeding and no active source of GI bleed identified Chest X-ray, 04/24/2024: Cardiomegaly with pulmonary vascular congestion and probable mild interstitial edema vital signs Vital Sign Date Time Temp Pulse Resp B/P (MAP) Pulse Ox O2 Delivery O2 Flow Rate FiO2 04/25/24 12:43 98.2 78 16 147/77 (100) 96 98.2 04/25/24 11:26 Oxymizer 2 N/A Total Intake and Output 04/24/24 04/24/24 04/25/24 15:00 23:00 07:00 Intake Total 600 ml 240 ml 340 ml Balance 600 ml 240 ml 340 ml medications Current Medications Medications Dose Ordered Sig/Nereyda Route Start Time Stop Time Status Last Admin Dose Admin Acetaminophen/ Hydrocodone Bitart 1 tab Q4HP PRN PO 04/21/24 08:45 04/22/24 01:58 1 TAB Ondansetron HCl 4 mg Q4HP PRN IV 04/21/24 08:45 Acetaminophen 650 mg Q6HP PRN PO 04/21/24 08:45 04/22/24 05:54 650 MG Nitroglycerin 0.4 mg Q5MINP PRN SL 04/21/24 08:45 Duloxetine HCl 30 mg DAILY PO 04/21/24 10:00 04/25/24 08:31 30 MG Minoxidil 2.5 mg BID PO 04/21/24 10:00 04/25/24 08:33 2.5 MG Nifedipine 60 mg BID PO 04/21/24 10:00 04/25/24 08:32 60 MG Pantoprazole Sodium 40 mg DAILY PO 04/21/24 10:00 04/25/24 08:31 40 MG Aspirin 81 mg DAILY PO 04/21/24 10:00 04/25/24 08:32 81 MG Atorvastatin Calcium 40 mg HS PO 04/21/24 22:00 04/24/24 22:18 40 MG Hydralazine HCl 50 mg QID PO 04/21/24 12:00 04/25/24 12:36 50 MG Diagnostic Test (Pha) 1 strip ACHS 04/22/24 11:30 04/25/24 12:42 1 STRIP Insulin Human Regular ACHS SC 04/22/24 11:30 04/25/24 12:38 2 UNITS Dextrose 50 ml UD PRN IV 04/22/24 10:15 Albuterol 2.5 mg Q6HR NEB 04/22/24 18:00 04/25/24 11:26 2.5 MG Albuterol 2.5 mg Q3HPRN PRN NEB 04/22/24 15:15 04/22/24 20:15 2.5 MG Ipratropium [place] 0.5 mg Q6HR NEB 04/22/24 18:00 04/25/24 11:26 0.5 MG Lactulose 30 ml DAILY PRN PO 04/22/24 15:15 Methylprednisolone Sodium Succinate 40 mg Q12H IV 04/22/24 17:00 04/24/24 17:59 40 MG Trazodone HCl 50 mg HS PO 04/23/24 22:00 04/24/24 22:19 50 MG Bupropion HCl 75 mg DAILY PO 04/24/24 10:00 04/25/24 08:32 75 MG Artificial Tears 1 drop Q2HP PRN EACHEYE 04/25/24 08:45 objective General: the patient is well developed and nourished. No acute distress. MENTAL STATUS: Subjective SPEECH, LANGUAGE, HIGHER CORTICAL FUNCTION: no aphasia or dysathria. CRANIAL NERVES: Pupils are equal, round and reactive. EOMs full and conjugate. Facial sensation intact in all three divisions bilaterally. Mandibular strength intact. Facial muscles symmetrical and strength intact. SENSATION: Sensation to touch and pinprick is normal. MOTOR: Normal tone in the upper and lower extremity. Normal muscle bulk. No fasciculations. Questionable tremors in the hands. Muscle strength of the major groups in the upper extremities is no less than 4/5. Muscle strength of the major groups in the lower extremities is no less than 3/5. REFLEXES: Deep tendon reflexes are symmetrical. No pathological reflexes. CEREBELLAR/COORDINATION: No ataxia laboratory and microbiology Laboratory Tests 04/25/24 05:21 Test 04/25/24 05:21 Range/Units Serum Glucose 114 H 74-106 mg/dL Problem List Altered mental status Metabolic encephalopathy Hypoxic encephalopathy Pneumonia 2 spells of uncontrolled the whole-body shaking, at least the 1st one was nonepileptic ? Myoclonus Acute hypoxic respiratory failure Chronic right arm DVT ? Underlying Cognitive dysfunction ? Chronic organic brain syndrome Assessment/Plan Monitoring Supportive treatment Telemetry EEG IV antibiotics Oxygen Eliquis 2.5 mg b.i.d. GI prophylaxis/pantoprazole 40 mg daily Nephrology on case/hemodialysis More recommendation per clinical course This medical document was created using an electronic medical record system with [employer] dictation system. Although this document has been carefully reviewed, there may still be some phonetic and typographical errors. These areas are purely typographical due to imperfections of the software programs, and do not reflect any compromise in the patient's medical care. Prognosis poor Plan discussed with: Other Total Time (mins): 40 NICHOLAS KLEIN MD Apr 25, 2024 15:48
--- NOTE | 2024-04-25 20:15 | DVHPN2 ---
Progress Note - Dictate Date Seen: Apr 25, 2024 Has the PT tested + for MRSA If YES, has PT been informed?: No Medical Necessity Reason Pt with a Central, PICC or Fol: No Subjective Patient seen and examined at bedside. Remains on supplemental oxygen Overnight events reviewed. vital signs Vital Sign Date Time Temp Pulse Resp B/P (MAP) Pulse Ox O2 Delivery O2 Flow Rate FiO2 04/25/24 18:47 82 24 99 04/25/24 18:39 Oxymizer 2.0 04/25/24 18:39 N/A 04/25/24 17:45 167/77 04/25/24 16:35 98.0 98.0 Total Intake and Output 04/24/24 04/24/24 04/25/24 15:00 23:00 07:00 Intake Total 600 ml 240 ml 340 ml Balance 600 ml 240 ml 340 ml medications Current Medications Medications Dose Ordered Sig/Nereyda Route Start Time Stop Time Status Last Admin Dose Admin Acetaminophen/ Hydrocodone Bitart 1 tab Q4HP PRN PO 04/21/24 08:45 04/25/24 17:46 1 TAB Ondansetron HCl 4 mg Q4HP PRN IV 04/21/24 08:45 Acetaminophen 650 mg Q6HP PRN PO 04/21/24 08:45 04/22/24 05:54 650 MG Nitroglycerin 0.4 mg Q5MINP PRN SL 04/21/24 08:45 Duloxetine HCl 30 mg DAILY PO 04/21/24 10:00 04/25/24 08:31 30 MG Minoxidil 2.5 mg BID PO 04/21/24 10:00 04/25/24 08:33 2.5 MG Nifedipine 60 mg BID PO 04/21/24 10:00 04/25/24 08:32 60 MG Pantoprazole Sodium 40 mg DAILY PO 04/21/24 10:00 04/25/24 08:31 40 MG Aspirin 81 mg DAILY PO 04/21/24 10:00 04/25/24 08:32 81 MG Atorvastatin Calcium 40 mg HS PO 04/21/24 22:00 04/24/24 22:18 40 MG Hydralazine HCl 50 mg QID PO 04/21/24 12:00 04/25/24 17:45 50 MG Diagnostic Test (Pha) 1 strip ACHS 04/22/24 11:30 04/25/24 17:52 1 STRIP Insulin Human Regular ACHS SC 04/22/24 11:30 04/25/24 18:02 2 UNITS Dextrose 50 ml UD PRN IV 04/22/24 10:15 Albuterol 2.5 mg Q6HR NEB 04/22/24 18:00 04/25/24 18:39 2.5 MG Albuterol 2.5 mg Q3HPRN PRN NEB 04/22/24 15:15 04/22/24 20:15 2.5 MG Ipratropium [place] 0.5 mg Q6HR NEB 04/22/24 18:00 04/25/24 18:39 0.5 MG Lactulose 30 ml DAILY PRN PO 04/22/24 15:15 Methylprednisolone Sodium Succinate 40 mg Q12H IV 04/22/24 17:00 04/24/24 17:59 40 MG Trazodone HCl 50 mg HS PO 04/23/24 22:00 04/24/24 22:19 50 MG Bupropion HCl 75 mg DAILY PO 04/24/24 10:00 04/25/24 08:32 75 MG Artificial Tears 1 drop Q2HP PRN EACHEYE 04/25/24 08:45 Alprazolam 0.25 mg Q8HP PRN PO 04/25/24 19:00 objective Gen.: Patient lying in bed in no apparent distress. On supplemental oxygen. Head: Normocephalic, atraumatic. Eyes: EOMI/PERRLA. Ears: Normal hearing. Normal anatomy. Neck/trachea: Trachea midline, supple. Nose: Normal external anatomy. Mouth: Moist mucous membranes. Chest: Decreased air entry bilaterally. No wheezing or rhonchi. Cardiovascular: Positive S1, positive S2. Regular rate and rhythm. Abdomen: Positive bowel sounds in all 4 quadrants. Soft, non-tender, non- distended. : Deferred. Rectal: Deferred. Skin: Warm, dry. Intact. Extremities: 2+ radial pulses bilaterally. No lower extremity edema. Neuro: Awake, alert, oriented x3. No gross motor or sensory deficits. Cranial nerves II through XII intact. Gait not assessed. laboratory and microbiology Laboratory Tests 04/25/24 05:21 Test 04/25/24 05:21 Range/Units Serum Glucose 114 H 74-106 mg/dL Assessment/Plan Impression Acute on chronic hypoxic respiratory failure Pleural effusion Atelectasis End-stage renal disease, on hemodialysis Pulmonary edema Pneumonia Congestive heart failure Events: Remains on supplemental oxygen, 3 LPM Oxymizer Taper O2 as tolerated Obtain CXR in the AM to assess for interval changes Continue antibiotics Continue bronchodilators Incentive spirometry Improved breath sounds. HD per nephrology Monitor renal function. Monitor electrolytes. Supplement as necessary. PT. EEG pending. Neuro recommendations appreciated. Labs and imaging reviewed. Rest of plan as noted below. Plan: Supplemental oxygen Titrate to keep O2 sats above 92%. CXR demonstrated cardiomegaly. Prominent bilateral interstitial markings and patchy airspace opacity in the right lower lung. Possible small right pleural effusion. No pneumothorax. Continue antibiotics Eliquis Continue statin Incentive spirometry Pain control Avoid oversedation Hemodialysis per Nephrology Monitor renal function. Monitor electrolytes. Supplement as necessary. Monitor ins and outs. Accu-Cheks, insulin sliding scale PRN. Protonix for GI prophylaxis Lovenox for DVT prophylaxis Prognosis: Poor given patient's multiple co-morbidities. Rest of plan per hospitalist and other consultants. Thank you Dr. Camila Hill MD, for allowing me to participate in this patient's care. Further recommendations will depend on the patient's clinical course. Please do not hesitate to contact me if you have any questions or concerns. This medical document was created using an electronic medical record system with depict dictation system. Although these documentations are being carefully reviewed, there may still be some phonetic and typographical changes. The errors are purely typographical, due to imperfection on the software program, and do not reflect any compromise in the patient's medical care. Dietary Evaluation Review Comments: 1) Consider a Soft CCHO 60g/Renal Standard diet 2) Continue current plan of care Expected Outcomes/Goals: F/U in 3-5 days Plan discussed with: Patient, Other (RN Sera) JUAN SALDAÑA MD Apr 25, 2024 20:15
--- NOTE | 2024-04-25 20:50 | DVHPN2 ---
Progress Note - Dictate Date Seen: Apr 25, 2024 Has the PT tested + for MRSA If YES, has PT been informed?: No Medical Necessity Reason Pt with a Central, PICC or Fol: No Subjective no new symptoms vital signs Vital Sign Date Time Temp Pulse Resp B/P (MAP) Pulse Ox O2 Delivery O2 Flow Rate FiO2 04/25/24 18:47 82 24 99 04/25/24 18:39 Oxymizer 2.0 04/25/24 18:39 N/A 04/25/24 17:45 167/77 04/25/24 16:35 98.0 98.0 Total Intake and Output 04/24/24 04/24/24 04/25/24 15:00 23:00 07:00 Intake Total 600 ml 240 ml 340 ml Balance 600 ml 240 ml 340 ml medications Current Medications Medications Dose Ordered Sig/Nereyda Route Start Time Stop Time Status Last Admin Dose Admin Acetaminophen/ Hydrocodone Bitart 1 tab Q4HP PRN PO 04/21/24 08:45 04/25/24 17:46 1 TAB Ondansetron HCl 4 mg Q4HP PRN IV 04/21/24 08:45 Acetaminophen 650 mg Q6HP PRN PO 04/21/24 08:45 04/22/24 05:54 650 MG Nitroglycerin 0.4 mg Q5MINP PRN SL 04/21/24 08:45 Duloxetine HCl 30 mg DAILY PO 04/21/24 10:00 04/25/24 08:31 30 MG Minoxidil 2.5 mg BID PO 04/21/24 10:00 04/25/24 08:33 2.5 MG Nifedipine 60 mg BID PO 04/21/24 10:00 04/25/24 08:32 60 MG Pantoprazole Sodium 40 mg DAILY PO 04/21/24 10:00 04/25/24 08:31 40 MG Aspirin 81 mg DAILY PO 04/21/24 10:00 04/25/24 08:32 81 MG Atorvastatin Calcium 40 mg HS PO 04/21/24 22:00 04/24/24 22:18 40 MG Hydralazine HCl 50 mg QID PO 04/21/24 12:00 04/25/24 17:45 50 MG Diagnostic Test (Pha) 1 strip ACHS 04/22/24 11:30 04/25/24 17:52 1 STRIP Insulin Human Regular ACHS SC 04/22/24 11:30 04/25/24 18:02 2 UNITS Dextrose 50 ml UD PRN IV 04/22/24 10:15 Albuterol 2.5 mg Q6HR NEB 04/22/24 18:00 04/25/24 18:39 2.5 MG Albuterol 2.5 mg Q3HPRN PRN NEB 04/22/24 15:15 04/22/24 20:15 2.5 MG Ipratropium [place] 0.5 mg Q6HR NEB 04/22/24 18:00 04/25/24 18:39 0.5 MG Lactulose 30 ml DAILY PRN PO 04/22/24 15:15 Methylprednisolone Sodium Succinate 40 mg Q12H IV 04/22/24 17:00 04/24/24 17:59 40 MG Trazodone HCl 50 mg HS PO 04/23/24 22:00 04/24/24 22:19 50 MG Bupropion HCl 75 mg DAILY PO 04/24/24 10:00 04/25/24 08:32 75 MG Artificial Tears 1 drop Q2HP PRN EACHEYE 04/25/24 08:45 Alprazolam 0.25 mg Q8HP PRN PO 04/25/24 19:00 objective Gen: NAD HEENT: NC, AT Lungs: CTA b/l Cardiac: RRR Abd: soft Ext: no edema Neuro: no focal deficits laboratory and microbiology Laboratory Tests 04/25/24 05:21 Test 04/25/24 05:21 Range/Units Serum Glucose 114 H 74-106 mg/dL Assessment/Plan Assessment/Plan ASSESSMENT AND PLAN: End-stage renal disease on HD pneumonia. Hyponatremia HTN Anemia of renal disease. Metabolic acidosis Plan: s/p HD Wednesday. net UF 3.5 L Next HD on Wednesday Continue Epogen dose Follow blood cultures IV antibiotics Dietary Evaluation Review Comments: 1) Consider a Soft CCHO 60g/Renal Standard diet 2) Continue current plan of care Expected Outcomes/Goals: F/U in 3-5 days Plan discussed with: Patient SANDOVAL INTERIANO MD Apr 25, 2024 20:50
[2024-04-26] VITALS (18 sets, daily range): BP systolic 143–179; BP diastolic 58–64; PULSE 71–103; RESP 16–20; TEMP 97.6–98.4; O2SAT 90–100
--- NOTE | 2024-04-26 00:48 | DVHEEG2 ---
Neurology EEG Procedural Note Procedural Note EXAM DATE: 04/25/24 REFERRING DOCTOR: Dr. Klein TECHNIQUE: Eighteen channels of EEG, 2 channels of EOG, and 1 channel of EKG were recorded using the [employer] 10/20 system. CLINICAL DATA: The patient was referred for an EEG evaluation for the evidence of seizure disorder. MEDICATIONS: See the chart BACKGROUND ACTIVITY: While the patient was awake, the background activity consisted of poorly regulated 6-7 Hz rhythmic waveforms, symmetrically distributed over both posterior quadrants and was reactive to external stimuli. Nurse and jewelry technician reported 2 generalized shaking events, which were not associated with EEG correlation ACTIVATION: Hyperventilation: Not done Photic Stimulation: Not done Sleep: Not seen IMPRESSION: This is a mildly abnormal EEG. This EEG seen in mild cerebral dysfunction due to metabolic/hypoxic encephalopathy or medication effects, please correlate clinically In the absence of EEG correlation, the two generalized shaking events were not epileptic in nature The EKG channel showed an irregular heart rate of 84/min[place] [address] NICHOLAS KLEIN MD Apr 26, 2024 00:48
[2024-04-26 06:54] LABS: Anion Gap 10 (5-15); Sodium 138 mmol/L (136-145)
[2024-04-26 06:56] LABS: Calcium 9.8 mg/dL (8.7-10.4)
[2024-04-26 07:00] LABS: BUN/Creatinine Ratio 6.7 (10.0-20.0); Glucose 103 mg/dL (74-106)
[2024-04-26] MEDS ORDERED: SODIUM CHL 0.9% 1000 ML BAG XX ONE (07:00)
[2024-04-26 07:07] LABS: Blood Urea Nitrogen 44 mg/dL (9-23); Carbon Dioxide 31 mmol/L (20-31); Chloride 97 mmol/L (98-107); Potassium 5.4 mmol/L (3.5-5.1)
[2024-04-26] MEDS: ALPRAZolam 0.25 MG TAB PO PRN (08:44)
--- NOTE | 2024-04-26 10:18 | DVHPN2 ---
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) Changes from previous H/P or p: Changes Objective Vitals Vital Signs Date Time Temp Pulse Resp B/P (MAP) Pulse Ox O2 Delivery O2 Flow Rate FiO2 04/26/24 07:39 103 16 100 04/26/24 06:17 143/58 04/26/24 06:02 Nasal Cannula* 3 32 04/26/24 05:00 98.2 98.2 Intake/Output Intake and Output 04/26/24 07:00 Intake Total 716 ml Output Total 0 ml Balance 716 ml Intake Oral 716 ml Output Urine Total 0 ml Stool Total 0 ml General Appearance: Alert, Cooperative, mild distress HEENT: Atraumatic Lungs: Other (Few crackles bilateral lungs and fair air entry with mild wheezes bilateral lower hernandez) Cardiovascular: Regular rate Abdomen: Normal bowel sounds, Soft, No tenderness Extremities: No edema Medications Current Medications Medications Dose Ordered Sig/Nereyda Route Start Time Stop Time Status Last Admin Dose Admin Acetaminophen/ Hydrocodone Bitart 1 tab Q4HP PRN PO 04/21/24 08:45 04/26/24 06:42 1 TAB Ondansetron HCl 4 mg Q4HP PRN IV 04/21/24 08:45 Acetaminophen 650 mg Q6HP PRN PO 04/21/24 08:45 04/26/24 07:43 650 MG Nitroglycerin 0.4 mg Q5MINP PRN SL 04/21/24 08:45 Duloxetine HCl 30 mg DAILY PO 04/21/24 10:00 04/25/24 08:31 30 MG Minoxidil 2.5 mg BID PO 04/21/24 10:00 04/25/24 22:33 2.5 MG Nifedipine 60 mg BID PO 04/21/24 10:00 04/25/24 22:33 60 MG Pantoprazole Sodium 40 mg DAILY PO 04/21/24 10:00 04/25/24 08:31 40 MG Aspirin 81 mg DAILY PO 04/21/24 10:00 04/25/24 08:32 81 MG Atorvastatin Calcium 40 mg HS PO 04/21/24 22:00 04/25/24 22:32 40 MG Hydralazine HCl 50 mg QID PO 04/21/24 12:00 04/26/24 06:17 50 MG Diagnostic Test (Pha) 1 strip ACHS 04/22/24 11:30 04/26/24 06:22 1 STRIP Insulin Human Regular ACHS SC 04/22/24 11:30 04/25/24 22:50 3 UNITS Dextrose 50 ml UD PRN IV 04/22/24 10:15 Albuterol 2.5 mg Q6HR NEB 04/22/24 18:00 04/26/24 06:03 2.5 MG Albuterol 2.5 mg Q3HPRN PRN NEB 04/22/24 15:15 04/22/24 20:15 2.5 MG Ipratropium [place] 0.5 mg Q6HR NEB 04/22/24 18:00 04/26/24 06:02 0.5 MG Lactulose 30 ml DAILY PRN PO 04/22/24 15:15 Methylprednisolone Sodium Succinate 40 mg Q12H IV 04/22/24 17:00 04/26/24 06:38 40 MG Trazodone HCl 50 mg HS PO 04/23/24 22:00 04/25/24 22:33 50 MG Bupropion HCl 75 mg DAILY PO 04/24/24 10:00 04/25/24 08:32 75 MG Artificial Tears 1 drop Q2HP PRN EACHEYE 04/25/24 08:45 Alprazolam 0.25 mg Q8HP PRN PO 04/25/24 19:00 04/26/24 08:44 0.25 MG Laboratory Results Laboratory Tests 04/25/24 05:21 04/26/24 04:59 Chemistry Test 04/26/24 04:59 Calcium Level 9.8 mg/dL (8.7-10.4) Microbiology Microbiology Date/Time Source Procedure Growth Status 04/21/24 08:23 Blood Blood Culture - Final NO GROWTH AFTER 5 DAYS OF INCUBATION. Complete Assessment/Plan Assessment/Plan Acute hypoxic respiratory failure Acute metabolic encephalopathy Pulmonary edema End-stage renal disease on hemodialysis Hyperkalemia History of heart failure History of COPD Diabetes type 2 Anxiety and depression Hypertension Coronary artery disease Pulmonary hypertension History of DVT of the right arm History of GI bleed Elevated troponin, NSTEMI Plan 04/24/2024: Hemodialysis was done today WBCs are normal, chest x-ray shows pulmonary edema, no evidence of infection Continue IV antibiotics Start p.o. doxycycline Continue IV steroids Med neb treatments Oxygen as needed Eliquis Monitor his electrolytes closely Physical therapy 04/25/2024: Physical therapy Out of bed as tolerated Eliquis IV Solu-Medrol Hemodialysis per Nephrology Discharge planning once physical therapy is done 04/26/2024: Physical therapy Out of bed Dialysis today Discharge planning for tomorrow We will discuss with the the discharge planning to go home with home health versus sniff once physical therapy is done Plan discussed with: Patient My Orders Orders - PETER LAMAR MD Procedure Category Date Status Time Dietary NOTICE 04/25/24 Transmitted Recommendations 16:16 Alprazolam Tablet PHA 04/25/24 In Process (Xanax Tablet) 19:00 Date of Service: Apr 26, 2024 Billing Provider: PETER LAMAR MD Common Visit Codes: NOT BILLABLE PETER LAMAR MD Apr 26, 2024 10:18
--- NOTE | 2024-04-26 10:24 | DVHPN2 ---
Progress Note - Dictate Date Seen: Apr 26, 2024 Has the PT tested + for MRSA If YES, has PT been informed?: No Medical Necessity Reason Pt with a Central, PICC or Fol: No Subjective Mr. Honeycutt is a 78 years old right-handed gentleman with a history of hypertension, diabetes, congestive heart failure, COPD, end-stage kidney failure on hemodialysis, DVT (09/26/23), status post pacemaker insertion, the patient was brought to the [facility] emergency room on 04/21/24 with a chief complaint of SOB. I saw him on 09/16/2023 for from anoxia, prolonged downtime, 03/07/2024 for ALOC I have seen and examined the patient, I have discussed with his nurse and sitter, in the room. He is doing better in the morning, he is awake, oriented to person, he knew that he is not at home, he follow commands I see tremors in both upper extremities, the reports tremors in both hands for several years ABG, 04/21/2024: Respiratory alkalosis, hypoxia Blood culture, 04/21/2024: No growth WBC/HB/PLT/MCV, 03/07/24: 4.8/8.2/229/79, 04/24/2024: 6.5/9/266/87.1 BUN/CR, 03/07/2024: 20/5.71 04/24/2024: 41/6.27 Liver function tests, 03/07/2024: Unremarkable, 04/24/2024: Unremarkable TG/CHO L/LDL/HDL, 08/2023: 100/94/45/28 Vitamin B12, 03/07/2024: 1030 Folic acid, 03/07/2024: 11.4 TSH, 09/11/2023: 2.5 EEG, 09/17/2023: mildly abnormal EEG Extremity venous study, 09/26/2023: Thrombus visualized within the right internal jugular vein, right basilic vein, and right cephalic vein. Per district ranger's note the patient's physician and nurse have been informed of the findings. EGD, 03/01/2024: 1. There was a moderate amount of old blood and clot in the cardia and fundus of the stomach that could not be dislodged or mobilized 2. Mild gastritis ; no esophageal varices or esophagitis 3. Moderate duodenitis of the duodenal bulb with erosions and tiny ulcers with a duodenal polyp from which multiple biopsies were obtained 4. Otherwise normal examination up to the 2nd and 3rd part of the duodenal with no active bleeding and no active source of GI bleed identified Chest X-ray, 04/24/2024: Cardiomegaly with pulmonary vascular congestion and probable mild interstitial edema vital signs Vital Sign Date Time Temp Pulse Resp B/P (MAP) Pulse Ox O2 Delivery O2 Flow Rate FiO2 04/26/24 07:39 103 16 100 04/26/24 06:17 143/58 04/26/24 06:02 Nasal Cannula* 3 32 04/26/24 05:00 98.2 98.2 Total Intake and Output 04/25/24 04/25/24 04/26/24 15:00 23:00 07:00 Intake Total 480 ml 236 ml Output Total 0 ml Balance 480 ml 236 ml medications Current Medications Medications Dose Ordered Sig/Nereyda Route Start Time Stop Time Status Last Admin Dose Admin Acetaminophen/ Hydrocodone Bitart 1 tab Q4HP PRN PO 04/21/24 08:45 04/26/24 06:42 1 TAB Ondansetron HCl 4 mg Q4HP PRN IV 04/21/24 08:45 Acetaminophen 650 mg Q6HP PRN PO 04/21/24 08:45 04/26/24 07:43 650 MG Nitroglycerin 0.4 mg Q5MINP PRN SL 04/21/24 08:45 Duloxetine HCl 30 mg DAILY PO 04/21/24 10:00 04/25/24 08:31 30 MG Minoxidil 2.5 mg BID PO 04/21/24 10:00 04/25/24 22:33 2.5 MG Nifedipine 60 mg BID PO 04/21/24 10:00 04/25/24 22:33 60 MG Pantoprazole Sodium 40 mg DAILY PO 04/21/24 10:00 04/25/24 08:31 40 MG Aspirin 81 mg DAILY PO 04/21/24 10:00 04/25/24 08:32 81 MG Atorvastatin Calcium 40 mg HS PO 04/21/24 22:00 04/25/24 22:32 40 MG Hydralazine HCl 50 mg QID PO 04/21/24 12:00 04/26/24 06:17 50 MG Diagnostic Test (Pha) 1 strip ACHS 04/22/24 11:30 04/26/24 06:22 1 STRIP Insulin Human Regular ACHS SC 04/22/24 11:30 04/25/24 22:50 3 UNITS Dextrose 50 ml UD PRN IV 04/22/24 10:15 Albuterol 2.5 mg Q6HR NEB 04/22/24 18:00 04/26/24 06:03 2.5 MG Albuterol 2.5 mg Q3HPRN PRN NEB 04/22/24 15:15 04/22/24 20:15 2.5 MG Ipratropium [place] 0.5 mg Q6HR NEB 04/22/24 18:00 04/26/24 06:02 0.5 MG Lactulose 30 ml DAILY PRN PO 04/22/24 15:15 Methylprednisolone Sodium Succinate 40 mg Q12H IV 04/22/24 17:00 04/26/24 06:38 40 MG Trazodone HCl 50 mg HS PO 04/23/24 22:00 04/25/24 22:33 50 MG Bupropion HCl 75 mg DAILY PO 04/24/24 10:00 04/25/24 08:32 75 MG Artificial Tears 1 drop Q2HP PRN EACHEYE 04/25/24 08:45 Alprazolam 0.25 mg Q8HP PRN PO 04/25/24 19:00 04/26/24 08:44 0.25 MG objective General: the patient is well developed and nourished. No acute distress. MENTAL STATUS: Subjective SPEECH, LANGUAGE, HIGHER CORTICAL FUNCTION: no aphasia or dysathria. CRANIAL NERVES: Pupils are equal, round and reactive. EOMs full and conjugate. Facial sensation intact in all three divisions bilaterally. Mandibular strength intact. Facial muscles symmetrical and strength intact. SENSATION: Sensation to touch and pinprick is normal. MOTOR: Normal tone in the upper and lower extremity. Normal muscle bulk. No fasciculations. Questionable tremors in the hands. Muscle strength of the major groups in the upper extremities is no less than 4/5. Muscle strength of the major groups in the lower extremities is no less than 3/5. REFLEXES: Deep tendon reflexes are symmetrical. No pathological reflexes. CEREBELLAR/COORDINATION: No ataxia laboratory and microbiology Laboratory Tests 04/26/24 04:59 04/25/24 05:21 Test 04/26/24 04:59 Range/Units Serum Glucose 103 74-106 mg/dL Problem List Altered mental status Metabolic encephalopathy Hypoxic encephalopathy Pneumonia 2 spells of uncontrolled the whole-body shaking on 04/25/2024 were not epileptic ? Myoclonus Acute hypoxic respiratory failure Chronic right arm DVT ? Underlying Cognitive dysfunction ? Chronic organic brain syndrome Assessment/Plan Monitoring Supportive treatment Telemetry IV antibiotics Oxygen Eliquis 2.5 mg b.i.d. GI prophylaxis/pantoprazole 40 mg daily Nephrology on case/hemodialysis More recommendation per clinical course This medical document was created using an electronic medical record system with [employer] dictation system. Although this document has been carefully reviewed, there may still be some phonetic and typographical errors. These areas are purely typographical due to imperfections of the software programs, and do not reflect any compromise in the patient's medical care. Prognosis poor Dietary Evaluation Review Comments: 1) Consider a Soft CCHO 60g/Renal Standard diet 2) Continue current plan of care Expected Outcomes/Goals: F/U in 3-5 days Plan discussed with: Spouse, Other NICHOLAS KLEIN MD Apr 26, 2024 10:24
--- NOTE | 2024-04-26 18:51 | DVHPN2 ---
Progress Note - Dictate Date Seen: Apr 26, 2024 Has the PT tested + for MRSA If YES, has PT been informed?: No Medical Necessity Reason Pt with a Central, PICC or Fol: No Subjective no new symptoms vital signs Vital Sign Date Time Temp Pulse Resp B/P (MAP) Pulse Ox O2 Delivery O2 Flow Rate FiO2 04/26/24 18:36 100 Nasal Cannula* 4 36 04/26/24 18:36 74 16 04/26/24 17:00 98.4 149/61 (90) 98.4 Total Intake and Output 04/25/24 04/25/24 04/26/24 15:00 23:00 07:00 Intake Total 480 ml 236 ml Output Total 0 ml Balance 480 ml 236 ml medications Current Medications Medications Dose Ordered Sig/Nereyda Route Start Time Stop Time Status Last Admin Dose Admin Acetaminophen/ Hydrocodone Bitart 1 tab Q4HP PRN PO 04/21/24 08:45 04/26/24 12:31 1 TAB Ondansetron HCl 4 mg Q4HP PRN IV 04/21/24 08:45 Acetaminophen 650 mg Q6HP PRN PO 04/21/24 08:45 04/26/24 07:43 650 MG Nitroglycerin 0.4 mg Q5MINP PRN SL 04/21/24 08:45 Duloxetine HCl 30 mg DAILY PO 04/21/24 10:00 04/26/24 10:44 30 MG Minoxidil 2.5 mg BID PO 04/21/24 10:00 04/26/24 10:46 2.5 MG Nifedipine 60 mg BID PO 04/21/24 10:00 04/26/24 10:45 60 MG Pantoprazole Sodium 40 mg DAILY PO 04/21/24 10:00 04/26/24 10:46 40 MG Aspirin 81 mg DAILY PO 04/21/24 10:00 04/26/24 10:46 81 MG Atorvastatin Calcium 40 mg HS PO 04/21/24 22:00 04/25/24 22:32 40 MG Hydralazine HCl 50 mg QID PO 04/21/24 12:00 04/26/24 06:17 50 MG Diagnostic Test (Pha) 1 strip ACHS 04/22/24 11:30 04/26/24 17:25 1 STRIP Insulin Human Regular ACHS SC 04/22/24 11:30 04/26/24 17:24 4 UNITS Dextrose 50 ml UD PRN IV 04/22/24 10:15 Albuterol 2.5 mg Q6HR NEB 04/22/24 18:00 04/26/24 18:36 2.5 MG Albuterol 2.5 mg Q3HPRN PRN NEB 04/22/24 15:15 04/22/24 20:15 2.5 MG Ipratropium [place] 0.5 mg Q6HR NEB 04/22/24 18:00 04/26/24 18:36 0.5 MG Lactulose 30 ml DAILY PRN PO 04/22/24 15:15 Methylprednisolone Sodium Succinate 40 mg Q12H IV 04/22/24 17:00 04/26/24 06:38 40 MG Trazodone HCl 50 mg HS PO 04/23/24 22:00 04/25/24 22:33 50 MG Bupropion HCl 75 mg DAILY PO 04/24/24 10:00 04/26/24 10:44 75 MG Artificial Tears 1 drop Q2HP PRN EACHEYE 04/25/24 08:45 Alprazolam 0.25 mg Q8HP PRN PO 04/25/24 19:00 04/26/24 08:44 0.25 MG objective Gen: NAD HEENT: NC, AT Lungs: CTA b/l Cardiac: RRR Abd: soft Ext: no edema Neuro: no focal deficits laboratory and microbiology Laboratory Tests 04/26/24 04:59 04/25/24 05:21 Test 04/26/24 04:59 Range/Units Serum Glucose 103 74-106 mg/dL Assessment/Plan Assessment/Plan ASSESSMENT AND PLAN: End-stage renal disease on HD pneumonia. Hyponatremia HTN Anemia of renal disease. Metabolic acidosis Plan: HD - Wednesday HD schedule: MWF Continue Epogen dose Follow blood cultures IV antibiotics Dietary Evaluation Review Comments: 1) Consider a Soft CCHO 60g/Renal Standard diet 2) Continue current plan of care Expected Outcomes/Goals: F/U in 3-5 days Plan discussed with: Patient SANODVAL INTERIANO MD Apr 26, 2024 18:51
[2024-04-26] MEDS: LACTULOSE 20Gm/30ML SOLN PO PRN (20:30)
--- NOTE | 2024-04-26 20:30 | DVHPN2 ---
Progress Note - Dictate Date Seen: Apr 26, 2024 Has the PT tested + for MRSA If YES, has PT been informed?: No Medical Necessity Reason Pt with a Central, PICC or Fol: No Subjective Patient seen and examined at bedside. Remains on supplemental oxygen Overnight events reviewed. vital signs Vital Sign Date Time Temp Pulse Resp B/P (MAP) Pulse Ox O2 Delivery O2 Flow Rate FiO2 04/26/24 18:36 100 Nasal Cannula* 4 36 04/26/24 18:36 74 16 04/26/24 17:00 98.4 149/61 (90) 98.4 Total Intake and Output 04/25/24 04/25/24 04/26/24 15:00 23:00 07:00 Intake Total 480 ml 236 ml Output Total 0 ml Balance 480 ml 236 ml medications Current Medications Medications Dose Ordered Sig/Nereyda Route Start Time Stop Time Status Last Admin Dose Admin Acetaminophen/ Hydrocodone Bitart 1 tab Q4HP PRN PO 04/21/24 08:45 04/26/24 12:31 1 TAB Ondansetron HCl 4 mg Q4HP PRN IV 04/21/24 08:45 Acetaminophen 650 mg Q6HP PRN PO 04/21/24 08:45 04/26/24 07:43 650 MG Nitroglycerin 0.4 mg Q5MINP PRN SL 04/21/24 08:45 Duloxetine HCl 30 mg DAILY PO 04/21/24 10:00 04/26/24 10:44 30 MG Minoxidil 2.5 mg BID PO 04/21/24 10:00 04/26/24 10:46 2.5 MG Nifedipine 60 mg BID PO 04/21/24 10:00 04/26/24 10:45 60 MG Pantoprazole Sodium 40 mg DAILY PO 04/21/24 10:00 04/26/24 10:46 40 MG Aspirin 81 mg DAILY PO 04/21/24 10:00 04/26/24 10:46 81 MG Atorvastatin Calcium 40 mg HS PO 04/21/24 22:00 04/25/24 22:32 40 MG Hydralazine HCl 50 mg QID PO 04/21/24 12:00 04/26/24 06:17 50 MG Diagnostic Test (Pha) 1 strip ACHS 04/22/24 11:30 04/26/24 17:25 1 STRIP Insulin Human Regular ACHS SC 04/22/24 11:30 04/26/24 17:24 4 UNITS Dextrose 50 ml UD PRN IV 04/22/24 10:15 Albuterol 2.5 mg Q6HR NEB 04/22/24 18:00 04/26/24 18:36 2.5 MG Albuterol 2.5 mg Q3HPRN PRN NEB 04/22/24 15:15 04/22/24 20:15 2.5 MG Ipratropium [place] 0.5 mg Q6HR NEB 04/22/24 18:00 04/26/24 18:36 0.5 MG Lactulose 30 ml DAILY PRN PO 04/22/24 15:15 Methylprednisolone Sodium Succinate 40 mg Q12H IV 04/22/24 17:00 04/26/24 06:38 40 MG Trazodone HCl 50 mg HS PO 04/23/24 22:00 04/25/24 22:33 50 MG Bupropion HCl 75 mg DAILY PO 04/24/24 10:00 04/26/24 10:44 75 MG Artificial Tears 1 drop Q2HP PRN EACHEYE 04/25/24 08:45 Alprazolam 0.25 mg Q8HP PRN PO 04/25/24 19:00 04/26/24 08:44 0.25 MG objective Gen.: Patient lying in bed in no apparent distress. On supplemental oxygen. Head: Normocephalic, atraumatic. Eyes: EOMI/PERRLA. Ears: Normal hearing. Normal anatomy. Neck/trachea: Trachea midline, supple. Nose: Normal external anatomy. Mouth: Moist mucous membranes. Chest: Decreased air entry bilaterally. No wheezing or rhonchi. Cardiovascular: Positive S1, positive S2. Regular rate and rhythm. Abdomen: Positive bowel sounds in all 4 quadrants. Soft, non-tender, non- distended. : Deferred. Rectal: Deferred. Skin: Warm, dry. Intact. Extremities: 2+ radial pulses bilaterally. No lower extremity edema. Neuro: Awake, alert, oriented x3. No gross motor or sensory deficits. Cranial nerves II through XII intact. Gait not assessed. laboratory and microbiology Laboratory Tests 04/26/24 04:59 04/25/24 05:21 Test 04/26/24 04:59 Range/Units Serum Glucose 103 74-106 mg/dL Assessment/Plan Impression Acute on chronic hypoxic respiratory failure Pleural effusion Atelectasis End-stage renal disease, on hemodialysis Pulmonary edema Pneumonia Congestive heart failure Events: Remains on supplemental oxygen, 3 LPM Oxymizer Taper O2 as tolerated Continue antibiotics Continue bronchodilators Incentive spirometry Improved breath sounds. HD per nephrology Monitor renal function. Monitor electrolytes. Supplement as necessary. PT. Neuro recommendations appreciated. Pt stable from pulmonary standpoint for discharge. Labs and imaging reviewed. Rest of plan as noted below. Plan: Supplemental oxygen Titrate to keep O2 sats above 92%. CXR demonstrated cardiomegaly. Prominent bilateral interstitial markings and patchy airspace opacity in the right lower lung. Possible small right pleural effusion. No pneumothorax. Continue antibiotics Eliquis Continue statin Incentive spirometry Pain control Avoid oversedation Hemodialysis per Nephrology Monitor renal function. Monitor electrolytes. Supplement as necessary. Monitor ins and outs. Accu-Cheks, insulin sliding scale PRN. Protonix for GI prophylaxis Lovenox for DVT prophylaxis Prognosis: Poor given patient's multiple co-morbidities. Rest of plan per hospitalist and other consultants. Thank you Dr. Camila Hill MD, for allowing me to participate in this patient's care. Further recommendations will depend on the patient's clinical course. Please do not hesitate to contact me if you have any questions or concerns. This medical document was created using an electronic medical record system with [employer] dictation system. Although these documentations are being carefully reviewed, there may still be some phonetic and typographical changes. The errors are purely typographical, due to imperfection on the software program, and do not reflect any compromise in the patient's medical care. Dietary Evaluation Review Comments: 1) Consider a Soft CCHO 60g/Renal Standard diet 2) Continue current plan of care Expected Outcomes/Goals: F/U in 3-5 days Plan discussed with: Patient, Spouse, Other (RN, MD) JUAN SALDAÑA MD Apr 26, 2024 20:30
[2024-04-27] VITALS (11 sets, daily range): BP systolic 137–150; BP diastolic 55–63; PULSE 74–85; RESP 15–19; TEMP 98–98.9; O2SAT 94–100
[2024-04-27 07:42] LABS: Anion Gap 8 (5-15); Chloride 99 mmol/L (98-107); Sodium 139 mmol/L (136-145)
[2024-04-27 07:43] LABS: Calcium 9.8 mg/dL (8.7-10.4)
[2024-04-27 07:47] LABS: Carbon Dioxide 32 mmol/L (20-31); Potassium 5.3 mmol/L (3.5-5.1)
[2024-04-27 07:48] LABS: BUN/Creatinine Ratio 6.9 (10.0-20.0)
[2024-04-27 07:49] LABS: Blood Urea Nitrogen 37 mg/dL (9-23); Glucose 153 mg/dL (74-106)
--- NOTE | 2024-04-27 09:43 | DVHPN2 ---
Progress Note - Dictate Date Seen: Apr 27, 2024 Has the PT tested + for MRSA If YES, has PT been informed?: No Medical Necessity Reason Pt with a Central, PICC or Fol: No Subjective Mr. Honeycutt is a 78 years old right-handed gentleman with a history of hypertension, diabetes, congestive heart failure, COPD, end-stage kidney failure on hemodialysis, DVT (09/26/23), status post pacemaker insertion, the patient was brought to the [facility] emergency room on 04/21/24 with a chief complaint of SOB. I saw him on 09/16/2023 for from anoxia, prolonged downtime, 03/07/2024 for ALOC I have seen and examined the patient, I have discussed with his nurse and sitter, he was mentally proved, alert and oriented x3, he reports pain in the back due to prolonged bedrest I see mild symmetric tremors in both hands ABG, 04/21/2024: Respiratory alkalosis, hypoxia Blood culture, 04/21/2024: No growth WBC/HB/PLT/MCV, 03/07/24: 4.8/8.2/229/79, 04/24/2024: 6.5/9/266/87.1 BUN/CR, 03/07/2024: 20/5.71 04/24/2024: 41/6.27 Liver function tests, 03/07/2024: Unremarkable, 04/24/2024: Unremarkable TG/CHO L/LDL/HDL, 08/2023: 100/94/45/28 Vitamin B12, 03/07/2024: 1030 Folic acid, 03/07/2024: 11.4 TSH, 09/11/2023: 2.5 EEG, 09/17/2023: mildly abnormal EEG Extremity venous study, 09/26/2023: Thrombus visualized within the right internal jugular vein, right basilic vein, and right cephalic vein. Per rn postpartum's note the patient's physician and nurse have been informed of the findings. EGD, 03/01/2024: 1. There was a moderate amount of old blood and clot in the cardia and fundus of the stomach that could not be dislodged or mobilized 2. Mild gastritis ; no esophageal varices or esophagitis 3. Moderate duodenitis of the duodenal bulb with erosions and tiny ulcers with a duodenal polyp from which multiple biopsies were obtained 4. Otherwise normal examination up to the 2nd and 3rd part of the duodenal with no active bleeding and no active source of GI bleed identified Chest X-ray, 04/24/2024: Cardiomegaly with pulmonary vascular congestion and probable mild interstitial edema vital signs Vital Sign Date Time Temp Pulse Resp B/P (MAP) Pulse Ox O2 Delivery O2 Flow Rate FiO2 04/27/24 08:24 78 18 100 04/27/24 08:16 Nasal Cannula* 4 36 04/27/24 08:00 98.1 150/55 (86) 98.1 Total Intake and Output 04/26/24 04/26/24 04/27/24 15:00 23:00 07:00 Intake Total 660 ml 300 ml Balance 660 ml 300 ml medications Current Medications Medications Dose Ordered Sig/Nereyda Route Start Time Stop Time Status Last Admin Dose Admin Acetaminophen/ Hydrocodone Bitart 1 tab Q4HP PRN PO 04/21/24 08:45 04/27/24 06:42 1 TAB Ondansetron HCl 4 mg Q4HP PRN IV 04/21/24 08:45 Acetaminophen 650 mg Q6HP PRN PO 04/21/24 08:45 04/26/24 07:43 650 MG Nitroglycerin 0.4 mg Q5MINP PRN SL 04/21/24 08:45 Duloxetine HCl 30 mg DAILY PO 04/21/24 10:00 04/26/24 10:44 30 MG Minoxidil 2.5 mg BID PO 04/21/24 10:00 04/26/24 21:53 2.5 MG Nifedipine 60 mg BID PO 04/21/24 10:00 04/26/24 21:52 60 MG Pantoprazole Sodium 40 mg DAILY PO 04/21/24 10:00 04/26/24 10:46 40 MG Aspirin 81 mg DAILY PO 04/21/24 10:00 04/26/24 10:46 81 MG Atorvastatin Calcium 40 mg HS PO 04/21/24 22:00 04/26/24 21:52 40 MG Hydralazine HCl 50 mg QID PO 04/21/24 12:00 04/27/24 05:43 50 MG Diagnostic Test (Pha) 1 strip ACHS 04/22/24 11:30 04/27/24 06:33 1 STRIP Insulin Human Regular ACHS SC 04/22/24 11:30 04/27/24 06:33 2 UNITS Dextrose 50 ml UD PRN IV 04/22/24 10:15 Albuterol 2.5 mg Q6HR NEB 04/22/24 18:00 04/27/24 08:15 2.5 MG Albuterol 2.5 mg Q3HPRN PRN NEB 04/22/24 15:15 04/22/24 20:15 2.5 MG Ipratropium [place] 0.5 mg Q6HR NEB 04/22/24 18:00 04/27/24 08:15 0.5 MG Lactulose 30 ml DAILY PRN PO 04/22/24 15:15 04/26/24 20:30 30 ML Methylprednisolone Sodium Succinate 40 mg Q12H IV 04/22/24 17:00 04/27/24 05:42 40 MG Trazodone HCl 50 mg HS PO 04/23/24 22:00 04/26/24 21:53 50 MG Bupropion HCl 75 mg DAILY PO 04/24/24 10:00 04/26/24 10:44 75 MG Artificial Tears 1 drop Q2HP PRN EACHEYE 04/25/24 08:45 Alprazolam 0.25 mg Q8HP PRN PO 04/25/24 19:00 04/26/24 08:44 0.25 MG objective General: the patient is well developed and nourished. No acute distress. MENTAL STATUS: Subjective SPEECH, LANGUAGE, HIGHER CORTICAL FUNCTION: no aphasia or dysathria. CRANIAL NERVES: Pupils are equal, round and reactive. EOMs full and conjugate. Facial sensation intact in all three divisions bilaterally. Mandibular strength intact. Facial muscles symmetrical and strength intact. SENSATION: Sensation to touch and pinprick is normal. MOTOR: Normal tone in the upper and lower extremity. Normal muscle bulk. No fasciculations. Questionable tremors in the hands. Muscle strength of the major groups in the upper extremities is no less than 4/5. Muscle strength of the major groups in the lower extremities is no less than 3/5. REFLEXES: Deep tendon reflexes are symmetrical. No pathological reflexes. CEREBELLAR/COORDINATION: No ataxia laboratory and microbiology Laboratory Tests 04/27/24 06:12 04/25/24 05:21 Test 04/27/24 06:12 Range/Units Serum Glucose 153 H 74-106 mg/dL Problem List Altered mental status almost recovered Metabolic encephalopathy Hypoxic encephalopathy Pneumonia 2 spells of uncontrolled the whole-body shaking on 04/25/2024 were not epileptic ? Myoclonus Acute hypoxic respiratory failure Chronic right arm DVT ? Underlying Cognitive dysfunction ? Chronic organic brain syndrome Assessment/Plan Monitoring Supportive treatment Telemetry IV antibiotics Oxygen Eliquis 2.5 mg b.i.d. GI prophylaxis/pantoprazole 40 mg daily Up to chair Physical therapy Room bright during the daytime Nephrology on case/hemodialysis More recommendation per clinical course This medical document was created using an electronic medical record system with [employer] dictation system. Although this document has been carefully reviewed, there may still be some phonetic and typographical errors. These areas are purely typographical due to imperfections of the software programs, and do not reflect any compromise in the patient's medical care. Prognosis poor Dietary Evaluation Review Comments: 1) Consider a Soft CCHO 60g/Renal Standard diet 2) Continue current plan of care Expected Outcomes/Goals: F/U in 3-5 days Plan discussed with: Other NICHOLAS KLEIN MD Apr 27, 2024 09:43
[2024-04-27] MEDS: SODIUM ZIRCONIUM CYCL 10 GM PAK PO ONE (11:11)
--- NOTE | 2024-04-27 14:31 | DVHDS2 ---
Discharge Summary Date of Admission Apr 21, 2024 at 08:44 Date of Discharge: Apr 27, 2024 Labs/Diagnostic Data: Laboratory Results Test 04/27/24 12:03 04/27/24 06:12 04/25/24 05:21 04/24/24 06:31 POC Glucose 238 mg/dl (70-106) Sodium Level 139 mmol/L (136-145) Potassium Level 5.3 mmol/L (3.5-5.1) Chloride Level 99 mmol/L (98-107) Carbon Dioxide Level 32 mmol/L (20-31) Anion Gap 8 (5-15) Blood Urea Nitrogen 37 mg/dL (9-23) Creatinine 5.36 mg/dL (0.700-1.30) Glomerular Filtration Rate Calc 10 mL/min (>90) BUN/Creatinine Ratio 6.9 (10.0-20.0) Serum Glucose 153 mg/dL (74-106) Calcium Level 9.8 mg/dL (8.7-10.4) White Blood Count 6.0 10^3/uL (4.4-10.8) Red Blood Count 3.37 10^6/uL (4.5-5.90) Hemoglobin 9.6 g/dL (13.5-17.5) Hematocrit 29.6 % (41.0-53.0) Mean Corpuscular Volume 87.9 fL (80.0-100.0) Mean Corpuscular Hemoglobin 28.5 pg (28.0-32.0) Mean Corpuscular Hemoglobin Concent 32.4 g/dL (32.0-36.0) Red Cell Distribution Width 24.3 % (11.8-14.3) Platelet Count 314 10^3/uL (140-450) Mean Platelet Volume 7.3 fL (6.9-10.8) Neutrophils (%) (Auto) 73.0 % (37.0-80.0) Lymphocytes (%) (Auto) 14.7 % (10.0-50.0) Monocytes (%) (Auto) 12.0 % (0.0-12.0) Eosinophils (%) (Auto) 0.2 % (0.0-7.0) Basophils (%) (Auto) 0.1 % (0.0-2.0) Neutrophils # (Auto) 4.4 10 ^3/uL (1.6-8.6) Lymphocytes # (Auto) 0.9 10 ^3/uL (0.4-5.4) Monocytes # (Auto) 0.7 10 ^3/uL (0-1.3) Eosinophils # (Auto) 0 10 ^3/uL (0-0.8) Basophils # (Auto) 0 10 ^3/uL (0-0.2) Nucleated Red Blood Cells 0.6 % Magnesium Level 2.2 mg/dL (1.6-2.6) Total Bilirubin 0.2 mg/dL (0.2-1.0) Aspartate Amino Transferase (AST) 11 U/L (13-40) Alanine Aminotransferase (ALT) < 9 U/L (7-40) Alkaline Phosphatase 79 U/L (46-116) Total Protein 7.5 g/dL (5.7-8.2) Albumin 4.0 g/dL (3.2-4.8) Platelet Estimate Adequate Anisocytosis (manual) Slight Microcytosis Slight Target Cells Few Iron Level 79 ug/dL (65-175) Total Iron Binding Capacity 148 ug/dL (250-425) Percent Iron Saturation 53.4 % (20-55) Ferritin 940.0 ng/mL (22-322) Test 04/23/24 07:43 04/22/24 16:30 04/22/24 16:00 04/21/24 10:41 Ovalocytes Few B-Type Natriuretic Peptide 1428.40 pg/mL (0-100) Random Vancomycin Level 30.4 ug/mL (5-10) Hepatitis B Surface Antigen Negative (Negative) Influenza Type A Antigen Negative (Negative) Influenza Type B Antigen Negative (Negative) SARS-CoV-2 Antigen (Rapid) Negative (NEGATIVE) Ammonia < 10 umol/L (11-32) Test 04/21/24 10:35 04/21/24 09:15 04/21/24 08:23 04/21/24 06:20 Blood Gas Specimen Type Arterial Blood Gas Sample Site Left radial Blood Gas Patient Temperature 37.0 Arterial Blood Date Drawn [id number] Arterial Blood pH 7.484 (7.350-7.450) Arterial Blood Partial Pressure CO2 42.7 mmHg (35.0-48.0) Arterial Blood Partial Pressure O2 62.8 mmHg (83.0-108.0) Arterial Blood HCO3 31.4 mmol/L (21.0-28.0) Arterial Blood Oxygen Saturation 91.3 % (94.0-98.0) Arterial Blood Base Excess 7.3 mmol/L (-2.0-3.0) Arterial Blood Oxyhemoglobin 89.6 % (94.0-98.0) Arterial Blood Carboxyhemoglobin 1.2 % (0.5-1.5) Arterial Blood Methemoglobin 0.7 % (0.0-1.5) Zachery Test Yes Blood Gas Total Hemoglobin 8.40 g/dL (13.5-17.5) Blood Gas Liter Flow 3.00 Blood Gas Modality Nasal cannula FiO2 % 32.0 Troponin I High Sensitivity 147 ng/L (</=54) Lactic Acid Level 0.7 mmol/L (0.4-2.0) Phosphorus Level 2.5 mg/dL (2.4-5.1) Other Laboratory Tests 04/27/24 06:12 04/25/24 05:21 Brief Hx & Hospital Course: Final diagnoses: Acute hypoxic respiratory failure due to fluid overload and pulmonary edema Acute metabolic encephalopathy, undetermined etiology Pulmonary edema End-stage renal disease on hemodialysis Hyperkalemia History of heart failure History of COPD Diabetes type 2 Anxiety and depression Hypertension Coronary artery disease Pulmonary hypertension History of DVT of the right arm History of GI bleed Elevated troponin, NSTEMI 78-year-old male with a history of end-stage renal disease came with altered level of consciousness, anxiety, shaking of the hands, shortness for breath Chest x-ray shows pulmonary edema Dialysis was given He was diagnosed with mastoiditis as an outpatient and was taking antibiotics CT scan of the head showed partial opacification of the right mastoid air cell With dialysis his shortness of breath improved He was given Xanax for the anxiety and shaking He had some witnessed episodes of what it looked like seizure like activity with shaking of his extremities however he was awake during the episode, EEG did not show seizure but it showed metabolic encephalopathy Neurology consult was done, recommendation is for conservative management, no seizure Today he is doing better Potassium is slightly elevated at 5.3, he had dialysis yesterday He can be discharged home and follow up as an outpatient and continue his dialysis schedule Continue the home medications He is still taking a cephalosporin for the mastoiditis and the was encouraged to finish the course at home Examination of his ears revealed cerumen impaction of the right ear canal, the is using a cerumen solution to soft in it and they have an appointment with the primary care physician to do an ear lavage Patient is stable for discharge Resume home medications Follow up with his PCP as soon as possible Condition at Discharge: Stable Final Diagnosis/Problems List Acute hypoxic respiratory failure Acute metabolic encephalopathy Pulmonary edema End-stage renal disease on hemodialysis Hyperkalemia History of heart failure History of COPD Diabetes type 2 Anxiety and depression Hypertension Coronary artery disease Pulmonary hypertension History of DVT of the right arm History of GI bleed Elevated troponin, NSTEMI Discharge Disposition: Home SNF Discharge Will this Physician continue t: No Discharge Instruct/Medications Diet: Cardiac 2g Na,low cholest, Renal Activity: No Restrictions, As Tolerated Follow Up/Referral: HD as scheduled Medications: Same home meds Discharge Statement: "Patient was advised to return to the ER or call 911 if any headaches, dizziness, shortness of breath, chest pain, abdominal pain, bleeding, fevers, or worsening of medical condition. Patient was counseled about treatment plan, medications, possible side effects, patientverbalized understanding. All questions were answered to the best of my ability. This discharge took greater then 30 minutes in planning, reviewing documentation, counseling the patient, and discussing with other team members." ASSESSMENT ASSESSMENT Assessment Acute hypoxic respiratory failure Acute metabolic encephalopathy Pulmonary edema End-stage renal disease on hemodialysis Hyperkalemia History of heart failure History of COPD Diabetes type 2 Anxiety and depression Hypertension Coronary artery disease Pulmonary hypertension History of DVT of the right arm History of GI bleed Elevated troponin, NSTEMI Date of Service: Apr 27, 2024 Billing Provider: PETER LAMAR MD Common Visit Codes: NOT BILLABLE PETER LAMAR MD Apr 27, 2024 14:31
--- NOTE | 2024-04-27 23:26 | DVHPN2 ---
Progress Note - Dictate Date Seen: Apr 27, 2024 Has the PT tested + for MRSA If YES, has PT been informed?: No Medical Necessity Reason Pt with a Central, PICC or Fol: No Subjective Patient seen and examined at bedside. Remains on supplemental oxygen Overnight events reviewed. vital signs Vital Sign Date Time Temp Pulse Resp B/P (MAP) Pulse Ox O2 Delivery O2 Flow Rate FiO2 04/27/24 17:00 98.6 81 18 146/61 (89) 98 98.6 04/27/24 10:30 Nasal Cannula* 3 32 Total Intake and Output 04/26/24 04/26/24 04/27/24 15:00 23:00 07:00 Intake Total 660 ml 300 ml Balance 660 ml 300 ml objective Gen.: Patient lying in bed in no apparent distress. On supplemental oxygen. Head: Normocephalic, atraumatic. Eyes: EOMI/PERRLA. Ears: Normal hearing. Normal anatomy. Neck/trachea: Trachea midline, supple. Nose: Normal external anatomy. Mouth: Moist mucous membranes. Chest: Decreased air entry bilaterally. No wheezing or rhonchi. Cardiovascular: Positive S1, positive S2. Regular rate and rhythm. Abdomen: Positive bowel sounds in all 4 quadrants. Soft, non-tender, non- distended. : Deferred. Rectal: Deferred. Skin: Warm, dry. Intact. Extremities: 2+ radial pulses bilaterally. No lower extremity edema. Neuro: Awake, alert, oriented x3. No gross motor or sensory deficits. Cranial nerves II through XII intact. Gait not assessed. laboratory and microbiology Laboratory Tests 04/27/24 06:12 04/25/24 05:21 Test 04/27/24 06:12 Range/Units Serum Glucose 153 H 74-106 mg/dL Assessment/Plan Impression Acute on chronic hypoxic respiratory failure Pleural effusion Atelectasis End-stage renal disease, on hemodialysis Pulmonary edema Pneumonia Congestive heart failure Events: Remains on supplemental oxygen, 3 LPM NC Taper O2 as tolerated Obtain CXR in the AM to assess for interval changes Continue bronchodilators Incentive spirometry HD per nephrology - s/p HD yesterday Monitor renal function. Monitor electrolytes. Supplement as necessary. PT. Patient is stable for discharge from the pulmonary standpoint. Labs and imaging reviewed. Rest of plan as noted below. Plan: Supplemental oxygen Titrate to keep O2 sats above 92%. CXR demonstrated cardiomegaly. Prominent bilateral interstitial markings and patchy airspace opacity in the right lower lung. Possible small right pleural effusion. No pneumothorax. Continue antibiotics Eliquis Continue statin Incentive spirometry Pain control Avoid oversedation Hemodialysis per Nephrology Monitor renal function. Monitor electrolytes. Supplement as necessary. Monitor ins and outs. Accu-Cheks, insulin sliding scale PRN. Protonix for GI prophylaxis Lovenox for DVT prophylaxis Prognosis: Poor given patient's multiple co-morbidities. Rest of plan per hospitalist and other consultants. Thank you Dr. Camila Hill MD, for allowing me to participate in this patient's care. Further recommendations will depend on the patient's clinical course. Please do not hesitate to contact me if you have any questions or concerns. This medical document was created using an electronic medical record system with [employer] dictation system. Although these documentations are being carefully reviewed, there may still be some phonetic and typographical changes. The errors are purely typographical, due to imperfection on the software program, and do not reflect any compromise in the patient's medical care. Dietary Evaluation Review Comments: 1) Consider a Soft CCHO 60g/Renal Standard diet 2) Continue current plan of care Expected Outcomes/Goals: F/U in 3-5 days Plan discussed with: Patient, Other (HANS Pimentel) JUAN SALDAÑA MD Apr 27, 2024 23:26
== END 2024-04-27 18:20 | disposition home health service (06) | DRG 280 ==
LOC: EDBD 06:04 → ER 06:04 → TELE 08:44 → TELE-WESTW 16:16
PROVIDERS: ADMIT Student in an Organized Health Care Education/Training Program; ATTEND Internal Medicine Geriatric Medicine
PROC: 5A1D70Z Performance of Urinary Filtration, Intermittent, Less than 6 Hours Per Day (ICD-10-PCS; principal; 2024-04-22)
PROC: 5A1D70Z Performance of Urinary Filtration, Intermittent, Less than 6 Hours Per Day (ICD-10-PCS; 2024-04-24)
PROC: 5A1D70Z Performance of Urinary Filtration, Intermittent, Less than 6 Hours Per Day (ICD-10-PCS; 2024-04-26)
DX: I21.4 Non-ST elevation (NSTEMI) myocardial infarction (principal); G93.41 Metabolic encephalopathy; J96.21 Acute and chronic respiratory failure with hypoxia; N18.6 End stage renal disease; J15.69 Pneumonia due to other Gram-negative bacteria; J15.9 Unspecified bacterial pneumonia; E87.1 Hypo-osmolality and hyponatremia; J98.11 Atelectasis; G93.1 Anoxic brain damage, not elsewhere classified; F03.93 Unspecified dementia, unspecified severity, with mood disturbance; F03.94 Unspecified dementia, unspecified severity, with anxiety; E87.4 Mixed disorder of acid-base balance; I12.0 Hypertensive chronic kidney disease with stage 5 chronic kidney disease or end stage renal disease; D63.1 Anemia in chronic kidney disease; I95.3 Hypotension of hemodialysis; E11.22 Type 2 diabetes mellitus with diabetic chronic kidney disease; E87.5 Hyperkalemia; I25.10 Atherosclerotic heart disease of native coronary artery without angina pectoris; Z20.822 Contact with and (suspected) exposure to COVID-19; I50.9 Heart failure, unspecified; F32.A Depression, unspecified; I27.20 Pulmonary hypertension, unspecified; E78.5 Hyperlipidemia, unspecified; F10.10 Alcohol abuse, uncomplicated; F17.200 Nicotine dependence, unspecified, uncomplicated; H61.21 Impacted cerumen, right ear; Z86.74 Personal history of sudden cardiac arrest; Z83.3 Family history of diabetes mellitus; Z82.49 Family history of ischemic heart disease and other diseases of the circulatory system; Z82.3 Family history of stroke; Z82.0 Family history of epilepsy and other diseases of the nervous system; Z99.2 Dependence on renal dialysis; Z79.899 Other long term (current) drug therapy; Z79.01 Long term (current) use of anticoagulants; Z98.61 Coronary angioplasty status; Z95.0 Presence of cardiac pacemaker; Z86.718 Personal history of other venous thrombosis and embolism; Y90.9 Presence of alcohol in blood, level not specified
CPT/HCPCS: 36415; 36600; 70450; 71045; 80048; 80053; 80202; 82140; 82728; 82805; 82962; 83540; 83550; 83605; 83735; 83880; 84100; 84484; 85025; 87040; 87340; 87426; 87804; 90935; 93005; 94640; 95819; 96365; 97110; 97116; 97530; 99291; G0378; J0692; J1642; J1815; J3490

== ENCOUNTER 2024-06-03 19:10 | Inpatient (IN) | payer OTHER, MEDICAID ==
[~2024-06-03] VITALS: Ht 167.6 cm; Wt 68.0 kg
[~2024-06-03 19:10] MED LIST changes: -APIX2.5T PO
--- NOTE | 2024-06-03 19:37 | ED.PDOC ---
Altered Mental Status HPI Comments 78-year-old male came to the emergency room via EMS for altered level of consciousness. Patient has history of hypertension, diabetes, CHF, COPD on home oxygen at 2lpm, history of end-stage renal disease, on dialysis, and history of dementia. Patient finishes dialysis session earlier today, was noted to be weak. Patient went to bed however when he woke up, he was noted to be altered, confused and disoriented by family members. 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 Allergies: Coded Allergies: Lisinopril (Verified Adverse Reaction, Severe, ANGIOEDEMA, 09/23/23) FACE,TONGUE, LIP SWELLING Home Meds Reported Medications Pantoprazole Sodium Sesquihydr (Protonix) 40 Mg Tab, 40 MG PO DAILY, #30 TAB 10/28/23 Amlodipine Besylate (NORVASC TABLET) 5 Mg Tb, 10 MG PO DAILY, TAB 10/28/23 Docusate Sodium (Colace) 100 Mg Cap, 100 MG PO BIDPRN PRN for FOR CONSTIPATION, CAP 10/28/23 Bupropion HCl (Bupropion Hydrochloride) 75 Mg Tab, 75 MG PO BID, TAB 10/28/23 Atorvastatin Calcium (ATORVASTATIN CALCIUM) 40 Mg Tab, 1 TAB PO QPM, #90 TAB 3 Refills 10/28/23 Minoxidil (Loniten) 2.5 Mg Tb, 1 TAB PO BID 09/15/23 Omeprazole (Gnp Omeprazole) 20 Mg Tab, 1 TAB PO DAILY 09/15/23 Hydralazine Hcl (Hydralazine Hcl) 50 Mg Tab, 1 TAB PO QID 09/15/23 Aspirin (Aspirin Low Dose) 81 Mg Chw, 1 TAB PO DAILY 09/15/23 Hydrocodone-Acetaminophen (Hydrocodone Bitartrate/AC 5-325 mg) 1 Tab Tab, 1 TAB PO Q6HP PRN for PAIN SCALE 7 THRU 10 09/15/23 Benzonatate (Benzonatate) 100 Mg Cap, 1 CAP PO TID PRN for COUGH for 10 Days, #30 24 Nitroglycerin (Nitrostat) 0.4 Mg Sub, 1 TAB SL Q5MIN PRN for CHEST PAIN for 30 Days, #25 09/15/23 Nifedipine (Nifedipine Er) 30 Mg Tab, 2 TAB PO BID 09/15/23 Duloxetine HCl (Duloxetine HCl) 30 Mg Cap, 1 CAP PO DAILY 09/15/23 Information Source: Patient, Emergency Med Personnel, Spouse Mode of Arrival: EMS Severity: Moderate, Unable to Care for Self Timing: Hours Duration: Since onset Prehospital treatment: Accucheck Quality: Decreased Alertness, Change in Behavior, Confusion Recent: Other (Dialysis) History of: Dementia Past Medical History PAST MEDICAL HISTORY: CHF, COPD, Dementia, DM, ESRD, HTN Surgical History: Hernia Repair, Pacemaker, Tonsillectomy Family History Family History: Reviewed,noncontributory to illness, Unknown Social History Smoker: Quit Greater Than 1 Year Alcohol: Denies ETOH Use Drugs: Denies Drug Use Lives In: Home Constitutional: reports: fatigue, malaise, weakness; denies: chills, diaphoresis, fever, sweats, others EENTM: denies: blurred vision, double vision, ear bleeding, ear discharge, ear drainage, ear pain, ear ringing, eye pain, eye redness, hearing loss, mouth pain, mouth swelling, nasal discharge, nose bleeding, nose congestion, nose pain, photophobia, tearing, throat pain, throat swelling, voice changes, others Respiratory: denies: cough, hemoptysis, orthopnea, SOB at rest, shortness of breath, SOB with excertion, stridor, wheezing, others Cardiovascular: denies: chest pain, dizzy spells, diaphoresis, Dyspnea on exertion, edema, irregular heart beat, left arm pain, lightheadedness, palpitations, PND, syncope, others Gastrointestinal: denies: abdomen distended, abdominal pain, blood streaked bowels, constipated, diarrhea, dysphagia, difficulty swallowing, hematemesis, melena, nausea, poor appetite, poor fluid intake, rectal bleeding, rectal pain, vomiting, others Genitourinary: denies: burning, dysuria, flank pain, frequency, hematuria, incontinence, penile discharge, penile sore, pain, testicle pain, testicle swelling, urgency, others Neurological: denies: dizziness, fainting, headache, left sided numbness, left sided weakness, numbness, paresthesia, pre-existing deficit, right sided numbness, right sided weakness, seizure, speech problems, tingling, tremors, weakness, others Musculoskeletal: denies: back pain, gout, joint pain, joint swelling, muscle pain, muscle stiffness, neck pain, others Integumetry: denies: bruises, change in color, change in hair/nails, dryness, laceration, lesions, lumps, rash, wounds, others Allergic/Immunocompromised: denies: Difficulty Healing, Frequent Infections, Hives, Itching, others Hematologic/Lymphatic: denies: anemia, blood clots, easy bleeding, easy bruising, swollen glands, others Endocrine: denies: excessive hunger, excessive sweating, excessive thirst, excessive urination, flushing, intolerance to cold, intolerance to heat, unexplained weight gain, unexplained weight loss, others Psychiatric: denies: anxiety, bipolar disorder, depression, hopeless, panic disorder, schizophrenia, sleepless, suicidal, others Unable to Obtain due to: Altered Mental Status Physical Exam General Appearance: Moderate Distress (Patient appears to be in moderate distress at time of evaluation. Patient was altered and could not give any level of medical history.), Normal HEENT: Normal ENT Inspection, Pharynx Normal, TMs Normal Neck: Full Range of Motion, Non-Tender, Normal, Normal Inspection Respiratory: Chest Non-Tender, Lungs Clear, No Accessory Muscle Use, No Respiratory Distress, Normal Breath Sounds Cardiovascular: No Edema, No JVD, No Murmur, No Gallop, Normal Peripheral Pulses, Regular Rate/Rhythm Breast Exam: Deferred Gastrointestinal: No Organomegaly, Non Tender, No Pulsatile Mass, Normal Bowel Sounds, Soft Genitalia: Deferred Pelvic: Deferred Rectal: Deferred Extremities: No calf tenderness, Normal capillary refill, No pedal edema Musculoskeletal : Apperance: Normal Neurologic: Disoriented, Motor Weakness, No Sensory Deficits Cerebellar Function: NOT DONE Reflexes: NOT DONE Skin: Dry, Normal Color, Warm Lymphatic: No Adenopathy Was a procedure done? Was a procedure done?: No Differential Diagnosis (ALOC) Differential Diagnosis: Dehydration, Encephalopathy, Sepsis, Hypoxemia, CVA, Mass Lesion, Heart Failure, Renal Failure X-Ray, Labs, Meds, VS Vital Signs Date Time Temp Pulse Resp B/P (MAP) Pulse Ox O2 Delivery O2 Flow Rate FiO2 06/04/24 00:00 56 06/03/24 23:21 50 06/03/24 23:15 98.4 94 16 101/57 (72) 94 98.4 06/03/24 23:15 94 33 100 Room Air* 0 21 06/03/24 19:19 99.2 104 14 134/77 (96) 98 06/03/24 19:16 111 Lab Test 06/04/24 00:09 06/03/24 22:35 06/03/24 21:46 06/03/24 20:54 Range/Units POC Glucose 154 H 70-106 mg/dl Troponin I High Sensitivity 80 *H 78 *H </=54 ng/L Lactic Acid Level 2.5 *H 0.4-2.0 mmol/L Test 06/03/24 19:40 Range/Units White Blood Count 9.0 4.4-10.8 10^3/uL Red Blood Count 4.83 4.5-5.90 10^6/uL Hemoglobin 14.3 13.5-17.5 g/dL Hematocrit 43.8 41.0-53.0 % Mean Corpuscular Volume 90.7 80.0-100.0 fL Mean Corpuscular Hemoglobin 29.7 28.0-32.0 pg Mean Corpuscular Hemoglobin Concent 32.7 32.0-36.0 g/dL Red Cell Distribution Width 20.4 H 11.8-14.3 % Platelet Count 202 140-450 10^3/uL Mean Platelet Volume 7.7 6.9-10.8 fL Neutrophils (%) (Auto) 72.6 37.0-80.0 % Lymphocytes (%) (Auto) 11.3 10.0-50.0 % Monocytes (%) (Auto) 15.8 H 0.0-12.0 % Eosinophils (%) (Auto) 0.2 0.0-7.0 % Basophils (%) (Auto) 0.1 0.0-2.0 % Neutrophils # (Auto) 6.5 1.6-8.6 10 ^3/uL Lymphocytes # (Auto) 1.0 0.4-5.4 10 ^3/uL Monocytes # (Auto) 1.4 H 0-1.3 10 ^3/uL Eosinophils # (Auto) 0 0-0.8 10 ^3/uL Basophils # (Auto) 0 0-0.2 10 ^3/uL Nucleated Red Blood Cells 0.0 % D-Dimer, Quantitative 2.19 H 0.0-0.49 mg/L FEU Sodium Level 133 L 136-145 mmol/L Potassium Level 4.3 3.5-5.1 mmol/L Chloride Level 95 L 98-107 mmol/L Carbon Dioxide Level 27 20-31 mmol/L Anion Gap 11 5-15 Blood Urea Nitrogen 33 H 9-23 mg/dL Creatinine 5.13 H 0.700-1.30 mg/dL Glomerular Filtration Rate Calc 11 >90 mL/min BUN/Creatinine Ratio 6.4 L 10.0-20.0 Serum Glucose 124 H 74-106 mg/dL Lactic Acid Level 2.2 *H 0.4-2.0 mmol/L Calcium Level 9.2 8.7-10.4 mg/dL Magnesium Level 2.1 1.6-2.6 mg/dL Total Bilirubin 0.2 0.2-1.0 mg/dL Aspartate Amino Transferase (AST) 28 13-40 U/L Alanine Aminotransferase (ALT) 16 7-40 U/L Alkaline Phosphatase 79 46-116 U/L Troponin I High Sensitivity 76 *H </=54 ng/L B-Type Natriuretic Peptide 632.96 0-100 pg/mL Total Protein 7.1 5.7-8.2 g/dL Albumin 3.8 3.2-4.8 g/dL Current Medications Medications (Trade) Dose Ordered Sig/Nereyda Route Start Time Stop Time Status Last Admin Sodium Chloride 1,000 ml @ 150 mls/hr Q6H40M ONCE IV 06/04/24 00:00 06/04/24 06:39 06/04/24 00:10 X-Ray, Labs, Meds, VS Comment All studies performed the ED were evaluated by me personally. Imaging studies were the head were unremarkable for any acute intracranial process. Chest x-ray was remarkable for some mild interstitial pulmonary edema. states the patient has a pacemaker in place, but the initial EKG showed junctional tachycardia with a rate of 111 and left bundle-branch block. Second EKG revealed sinus rhythm with a rate of 50, right bundle-branch rock and left anterior fascicular block. Additional baseline wander in lead V2. Urine was pending at time of this note. Serum laboratories revealed a hyponatremia state, confirmation of end-stage renal disease, elevated lactic acid, elevated tropon ins as well as acute CHF exacerbation. Patient will be admitted for fluid management as well as cardiac evaluation to address what might be a malfunctioning pacemaker. Time of 1ST Reevaluation: 02:42 Reevaluation 1ST: Improved Consultation: PCP, Cardiology Patient Education/Counseling: Diagnosis, Treatment Family Education/Counseling: Diagnosis, Treatment, No Family Present Departure 1 Departure Time of Disposition: 02:42 Impression: Primary Impression: Acute coronary syndrome Additional Impressions: End stage renal disease on dialysis Hyponatremia Elevated lactic acid level Elevated troponin Acute exacerbation of CHF (congestive heart failure) Disposition: ADMITTED INPATIENT Condition: Fair Discharged With: Self, Spouse Critical Care Note Critical Care Time?: No Stability Stability form required: No Heart Score Heart Score: Heart Score Response (Comments) Value History Slightly Suspicious 0 EKG Repolarization Disturb 1 Age >65 2 Risk Factors 1 or 2 risk factors 1 Troponin >3 x's Normal limit 2 Total 6 I personally scribed for NICOLE QUIROGA PAC ([email or web address]) on 06/03/24 at 19:37. Electronically submitted by Giancarlo Martinez ([email or web address]). NICOLE QUIROGA PAC Jun 03, 2024 19:37
[2024-06-03 20:02] LABS: Basophils # (auto) 0 10 ^3/uL (0-0.2); Basophils % (auto) 0.1 % (0.0-2.0); Eosinophils # (auto) 0 10 ^3/uL (0-0.8); Eosinophils % (auto) 0.2 % (0.0-7.0); Hematocrit 43.8 % (41.0-53.0); Hemoglobin 14.3 g/dL (13.5-17.5); Lymphocytes % (auto) 11.3 % (10.0-50.0); Mean Corpuscular Hemoglobin 29.7 pg (28.0-32.0); Mean Corpuscular Hgb Conc. 32.7 g/dL (32.0-36.0); Mean Corpuscular Volume 90.7 fL (80.0-100.0); Monocytes # (auto) 1.4 10 ^3/uL (0-1.3); Monocytes % (auto) 15.8 % (0.0-12.0); Neutrophils # (auto) 6.5 10 ^3/uL (1.6-8.6); Neutrophils % (auto) 72.6 % (37.0-80.0); Platelet Count (auto) 202 10^3/uL (140-450); Red Blood Cells 4.83 10^6/uL (4.5-5.90)
[2024-06-03 20:05] LABS: Red Cell Distribution Width 20.4 % (11.8-14.3)
[2024-06-03 20:16] LABS: Alanine Aminotransferase 16 U/L (7-40); Alkaline Phosphatase 79 U/L (46-116); Calcium 9.2 mg/dL (8.7-10.4); Carbon Dioxide 27 mmol/L (20-31); Magnesium 2.1 mg/dL (1.6-2.6); Potassium 4.3 mmol/L (3.5-5.1)
[2024-06-03 20:17] LABS: Albumin 3.8 g/dL (3.2-4.8); Anion Gap 11 (5-15); Aspartate Aminotransferase 28 U/L (13-40); BUN/Creatinine Ratio 6.4 (10.0-20.0); Total Protein 7.1 g/dL (5.7-8.2)
[2024-06-03 20:18] LABS: Blood Urea Nitrogen 33 mg/dL (9-23); Chloride 95 mmol/L (98-107); Glucose 124 mg/dL (74-106); Sodium 133 mmol/L (136-145)
[2024-06-03 20:19] LABS: Bilirubin, Total 0.2 mg/dL (0.2-1.0)
[2024-06-03 20:21] LABS: Lactic Acid w/Reflex 2.2 mmol/L (0.4-2.0)
--- NOTE | 2024-06-03 22:15 | DVH ---
CHEST RADIOGRAPH Indication: Shortness of breath Technique: Single frontal view of the chest was obtained COMPARISON: XY CHEST PORTABLE on DOS: 04/24/24, XY CHEST PORTABLE on DOS: 04/23/24, XY CHEST PORTABLE o n DOS: 04/21/24, XY CHEST XRAY 1 VIEW on DOS: 03/09/24, XY CHEST PORTABLE on DOS: 03/06/24 FINDINGS: Lines and Tubes: None Lungs: Probable mild interstitial pulmonary edema. Pleura: No effusion. No pneumothorax. Cardiomediastinal contours: Mild cardiomegaly Bones: Unremarkable IMPRESSION: 1. Probable mild interstitial pulmonary edema.
[2024-06-03 23:15] VITALS: PULSE 94; RESP 33; O2SAT 100
[2024-06-04] MEDS: SODIUM CHLORIDE 0.9% 1,000 ML IV ONE (00:10)
--- NOTE | 2024-06-04 01:23 | DVH ---
EXAM: CT HEAD WITHOUT CONTRAST INDICATION: Altered mental status TECHNIQUE: CT of the head without intravenous contrast. Radiation Dose : 1. Head: CT Dose: CTDI volume is 63 mGy. Dose-length product is 1241 mGy*cm The dose indicators for CT are the volume Computed Tomography (CT) Dose Index (CTDIvol) and the Dose Length Product (DLP), and are measured in units of mGy and mGy-cm, respectively. These indicators are not patient dose, but values generated from the CT scanner acquisition factors. The report includes radiation exposure data for exposures received during this examination. COMPARISON: CT HEAD WITHOUT CONTRAST on DOS: 04/24/24, CT HEAD WITHOUT CONTRAST on DOS: 02/24/24, CT HE AD WITHOUT CONTRAST on DOS: 10/27/23, CT HEAD WITHOUT CONTRAST on DOS: 09/30/23, CT HEAD WITHOUT CONTRAST on DOS: 09/17/23 FINDINGS: There is no evidence of acute intracranial hemorrhage, extra-axial collection, mass effect, midline s hift, herniation or hydrocephalus. The ventricles, sulci and cisterns are age appropriate. The landaverde-white differentiation is intact. Patchy periventricular and subcortical white matter hypoattenuation is nonspecific but may be related to small vessel ischemic disease. The visualized paranasal sinuses and mastoid air cells are clear. The surrounding soft tissues and osseous structures are unremarkable. IMPRESSION: 1. No acute intracranial abnormality. Radiation optimization: All CT scans at this facility use at least one of these dose optimization eddi hniques: automated exposure control mA and/or kV adjustment per patient size (includes targeted exam s where dose is matched to clinical indication) or iterative reconstruction.
--- NOTE | 2024-06-04 01:52 | ECG ---
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 Baseline wander in lead(s) V2 Electronically Signed On 06-11-2024 14:51:57 PST by Noah Alan Please click the below link to view image of tracing.
[2024-06-04] MEDS: FUROSEMIDE 40 MG/4 ML VIAL IV ONE (03:07)
[2024-06-04 07:30] VITALS: PULSE 87; RESP 16; O2SAT 95
--- NOTE | 2024-06-04 10:12 | DVHHP2 ---
History of Present Illness Reason for Visit: diarrhea History of Present Illness 78 year old male with a history of end-stage renal disease, hypertension, coronary artery disease, type 2 diabetes, according to the who is the caregiver he is here because he was having diarrhea for 3 days and then after dialysis last night he became altered and lethargic Apparently he was at [facility] recently with C diff colitis and was given vancomycin at home and he just finished a week ago thin the diarrhea came back No blood in the diarrhea according to his At this time the patient is at his baseline, answering questions, vital signs are stable, heart rate is about 90 The patient had a pacemaker done about 6 months ago and according to his ex- it was checked about a month ago by Dr. Gaffney Cardiovascular: CAD, CHF, HTN Pulmonary: COPD GI: GI bleed Psych: Anxiety Renal/: Chronic renal insuff Endocrine: Diabetes Review of Systems Allergies: Coded Allergies: Lisinopril (Verified Adverse Reaction, Severe, ANGIOEDEMA, 09/23/23) FACE,TONGUE, LIP SWELLING Medications Current Medications Medications Dose Ordered Sig/Nereyda Route Start Time Stop Time Status Last Admin Dose Admin Nitroglycerin 0.4 mg Q5MINP PRN SL 06/04/24 10:15 UNV Morphine Sulfate 2 mg Q30M PRN IV 06/04/24 10:15 UNV Exam Vital Signs Vital Signs Date Time Temp Pulse Resp B/P (MAP) Pulse Ox O2 Delivery O2 Flow Rate FiO2 06/04/24 08:36 87 06/04/24 08:00 20 139/62 (87) 95 06/04/24 07:30 Nasal Cannula* 2 28 06/03/24 23:15 98.4 98.4 Labs/Xrays Labs Test 06/04/24 00:09 06/03/24 22:35 06/03/24 21:46 06/03/24 19:40 Range/Units POC Glucose 154 H 70-106 mg/dl Troponin I High Sensitivity 80 *H </=54 ng/L Lactic Acid Level 2.5 *H 0.4-2.0 mmol/L White Blood Count 9.0 4.4-10.8 10^3/uL Red Blood Count 4.83 4.5-5.90 10^6/uL Hemoglobin 14.3 13.5-17.5 g/dL Hematocrit 43.8 41.0-53.0 % Mean Corpuscular Volume 90.7 80.0-100.0 fL Mean Corpuscular Hemoglobin 29.7 28.0-32.0 pg Mean Corpuscular Hemoglobin Concent 32.7 32.0-36.0 g/dL Red Cell Distribution Width 20.4 H 11.8-14.3 % Platelet Count 202 140-450 10^3/uL Mean Platelet Volume 7.7 6.9-10.8 fL Neutrophils (%) (Auto) 72.6 37.0-80.0 % Lymphocytes (%) (Auto) 11.3 10.0-50.0 % Monocytes (%) (Auto) 15.8 H 0.0-12.0 % Eosinophils (%) (Auto) 0.2 0.0-7.0 % Basophils (%) (Auto) 0.1 0.0-2.0 % Neutrophils # (Auto) 6.5 1.6-8.6 10 ^3/uL Lymphocytes # (Auto) 1.0 0.4-5.4 10 ^3/uL Monocytes # (Auto) 1.4 H 0-1.3 10 ^3/uL Eosinophils # (Auto) 0 0-0.8 10 ^3/uL Basophils # (Auto) 0 0-0.2 10 ^3/uL Nucleated Red Blood Cells 0.0 % D-Dimer, Quantitative 2.19 H 0.0-0.49 mg/L FEU Sodium Level 133 L 136-145 mmol/L Potassium Level 4.3 3.5-5.1 mmol/L Chloride Level 95 L 98-107 mmol/L Carbon Dioxide Level 27 20-31 mmol/L Anion Gap 11 5-15 Blood Urea Nitrogen 33 H 9-23 mg/dL Creatinine 5.13 H 0.700-1.30 mg/dL Glomerular Filtration Rate Calc 11 >90 mL/min BUN/Creatinine Ratio 6.4 L 10.0-20.0 Serum Glucose 124 H 74-106 mg/dL Calcium Level 9.2 8.7-10.4 mg/dL Magnesium Level 2.1 1.6-2.6 mg/dL Total Bilirubin 0.2 0.2-1.0 mg/dL Aspartate Amino Transferase (AST) 28 13-40 U/L Alanine Aminotransferase (ALT) 16 7-40 U/L Alkaline Phosphatase 79 46-116 U/L B-Type Natriuretic Peptide 632.96 0-100 pg/mL Total Protein 7.1 5.7-8.2 g/dL Albumin 3.8 3.2-4.8 g/dL Assessment/Plan Assessment/Plan Diarrhea, rule out C diff colitis Acute metabolic encephalopathy Tachycardia Episodes of bradycardia End-stage renal disease on hemodialysis COPD on home O2 Acute on chronic hypoxic respiratory failure Chronic respiratory failure on home O2 History of CHF Type 2 diabetes Hypertension Possible underlying dementia Chronic anemia of chronic kidney disease Recent C diff colitis Elevated troponin Mild pulmonary edema History of recent DVT of the right arm History of mastoiditis Plan Admit to telemetry Oxygen as needed Get stool specimen for culture and C diff and white cells Cardiology consult Pacemaker interrogation Monitor the electrolytes closely Nephrology consult for dialysis Plan discussed with: Patient, Spouse My Orders Orders - PETER LAMAR MD Procedure Category Date Status Time Admit ADMIT 06/04/24 Transmitted 10:02 Nitroglycerin PHA 06/04/24 Logged Sublingual (Ntrostat 10:15 Morphine Sulfate PHA 06/04/24 Logged Injection 10:15 Stat Ekg For Chest SHAYLA 06/04/24 In Process Pain 10:02 Notify Md Of Changes SHAYLA 06/04/24 In Process From Base 10:02 Enamel Dipper For SHAYLA 06/04/24 In Process 24 Hours 10:02 Emergency Dysrhythmia SHAYLA 06/04/24 In Process Protocol 10:02 Rhythm Strips Once SHAYLA 06/04/24 In Process Every Shift 10:02 Oxygen By Nasal RT 06/04/24 Transmitted Cannula 10:02 * Cardiology Consult CONS 06/04/24 Transmitted 10:03 *Dr. Mariela Canela -Da CONS 06/04/24 Transmitted Aaliyah 10:03 Clostridium Difficile YARELI 06/04/24 Transmitted Toxin 10:04 Stool Occult Blood LAB 06/04/24 Transmitted 10:04 Stool Wbc LAB 06/04/24 Transmitted 10:04 Stool Bacterial YARELI 06/04/24 Transmitted Culture 10:04 Complete Blood Count LAB 06/05/24 Verified 04:00 Comprehensive LAB 06/05/24 Verified Metabolic Panel 04:00 Magnesium LAB 06/05/24 Verified 04:00 Date of Service: Jun 04, 2024 Billing Provider: PETER LAMAR MD Common Visit Codes: NOT BILLABLE PETER LAMAR MD Jun 04, 2024 10:12
[2024-06-04] MEDS ORDERED: MORPHINE SULFATE INJ 2 MG/ml SYRG IV PRN (10:15)
[2024-06-04] MEDS ORDERED: NITROGLYCERIN 0.4 MG SL TAB SL PRN (10:15)
[2024-06-04] MEDS ORDERED: ACETAMINOPHEN 325 MG TAB PO PRN (10:30)
[2024-06-04] MEDS ORDERED: DEXTROSE (50%) 50ML SYRG IV PRN (10:30)
[2024-06-04] MEDS: PANTOPRAZOLE 40 MG/10 ML VIAL INJ IV ONE (10:33)
[2024-06-04 11:26] LABS: Basophils # (auto) 0 10 ^3/uL (0-0.2); Basophils % (auto) 0.1 % (0.0-2.0); Eosinophils # (auto) 0 10 ^3/uL (0-0.8); Eosinophils % (auto) 0.3 % (0.0-7.0); Hematocrit 42.3 % (41.0-53.0); Hemoglobin 13.6 g/dL (13.5-17.5); Lymphocytes # (auto) 1.3 10 ^3/uL (0.4-5.4); Lymphocytes % (auto) 12.3 % (10.0-50.0); Mean Corpuscular Hgb Conc. 32.1 g/dL (32.0-36.0); Mean Corpuscular Volume 90.2 fL (80.0-100.0); Neutrophils # (auto) 7.1 10 ^3/uL (1.6-8.6); Neutrophils % (auto) 67.9 % (37.0-80.0); Nucleated Red Blood Cells % 0.3 %; Platelet Count (auto) 202 10^3/uL (140-450); Red Blood Cells 4.69 10^6/uL (4.5-5.90); White Blood Cell 10.5 10^3/uL (4.4-10.8)
[2024-06-04] MEDS: InsuLIN REG 1unit/0.01ml Soln (100units/ml) SC SCH (11:30)
[2024-06-04 11:36] LABS: Anion Gap 12 (5-15); Carbon Dioxide 25 mmol/L (20-31); Potassium 3.9 mmol/L (3.5-5.1)
[2024-06-04 11:37] LABS: Calcium 9.4 mg/dL (8.7-10.4); Chloride 95 mmol/L (98-107); Monocytes % (auto) 19.4 % (0.0-12.0); Red Cell Distribution Width 20.7 % (11.8-14.3); Sodium 132 mmol/L (136-145)
[2024-06-04 11:42] LABS: BUN/Creatinine Ratio 5.8 (10.0-20.0); Magnesium 2.2 mg/dL (1.6-2.6)
[2024-06-04 11:43] LABS: Blood Urea Nitrogen 38 mg/dL (9-23); Glucose 107 mg/dL (74-106)
[2024-06-04] MEDS: ACCU-CHEK COMFORT CURVE STRIP VI SCH (11:48)
[2024-06-04 12:30] LABS: Anisocytosis Slight; Platelet Estimate Adequate
--- NOTE | 2024-06-04 17:05 | DVHINCON2 ---
Date of service: Jun 04, [address] Stinson Reason for Consultation ESRD on HD History of Present Illness This is a 78 year old male with a history of end-stage renal disease on HD , hypertension, coronary artery disease, type 2 diabetes brought to the ER because of diarrhea for 3 days. Also became more altered and lethargic after HD yesterday . Apparently he was at [facility] recently with C diff colitis and was given vancomycin at home and he just finished it a week ago No blood in the diarrhea according to his Nephrology consulted for continuation of HD Past Medical History CAD HTN CHF COPD ESKD Type II DM Past Surgical History PACEMAKER DIALYSIS ACCESS Family History: Family history: Cardiovascular disease G8 BROTHER Family history: Diabetes mellitus G8 MOTHER G8 FATHER G8 BROTHER Family history: Hypertension G8 MOTHER G8 FATHER G8 BROTHER Stroke G8 MOTHER Social History No active h/o smoking /alcohol Allergies: Coded Allergies: Lisinopril (Verified Adverse Reaction, Severe, ANGIOEDEMA, 09/23/23) FACE,TONGUE, LIP SWELLING Home Meds Reported Medications Pantoprazole Sodium Sesquihydr (Protonix) 40 Mg Tab, 40 MG PO DAILY, #30 TAB 10/28/23 Amlodipine Besylate (NORVASC TABLET) 5 Mg Tb, 10 MG PO DAILY, TAB 10/28/23 Docusate Sodium (Colace) 100 Mg Cap, 100 MG PO BIDPRN PRN for FOR CONSTIPATION, CAP 10/28/23 Bupropion HCl (Bupropion Hydrochloride) 75 Mg Tab, 75 MG PO BID, TAB 10/28/23 Atorvastatin Calcium (ATORVASTATIN CALCIUM) 40 Mg Tab, 1 TAB PO QPM, #90 TAB 3 Refills 10/28/23 Minoxidil (Loniten) 2.5 Mg Tb, 1 TAB PO BID 09/15/23 Omeprazole (Gnp Omeprazole) 20 Mg Tab, 1 TAB PO DAILY 09/15/23 Hydralazine Hcl (Hydralazine Hcl) 50 Mg Tab, 1 TAB PO QID 09/15/23 Aspirin (Aspirin Low Dose) 81 Mg Chw, 1 TAB PO DAILY 09/15/23 Hydrocodone-Acetaminophen (Hydrocodone Bitartrate/AC 5-325 mg) 1 Tab Tab, 1 TAB PO Q6HP PRN for PAIN SCALE 7 THRU 10 09/15/23 Benzonatate (Benzonatate) 100 Mg Cap, 1 CAP PO TID PRN for COUGH for 10 Days, #30 09/15/23 Nitroglycerin (Nitrostat) 0.4 Mg Sub, 1 TAB SL Q5MIN PRN for CHEST PAIN for 30 Days, #25 09/15/23 Nifedipine (Nifedipine Er) 30 Mg Tab, 2 TAB PO BID 09/15/23 Duloxetine HCl (Duloxetine HCl) 30 Mg Cap, 1 CAP PO DAILY 09/15/23 Current Medications Current Medications Medications (Trade) Dose Ordered Sig/Nereyda Route PRN Reason Start Time Stop Time Status Last Admin Nitroglycerin (Ntrostat Sublingual) 0.4 mg Q5MINP PRN SL FOR CHEST PAIN 06/04/24 10:15 Morphine Sulfate 2 mg Q30M PRN IV FOR CHEST PAIN 06/04/24 10:15 Pantoprazole Sodium (Protonix) 40 mg DAILY IV 06/05/24 10:00 Acetaminophen (Tylenol Tablet) 650 mg Q6HP PRN PO MILD PAIN (1-3 PAIN SCALE) 06/04/24 10:30 Ondansetron HCl (Zofran) 4 mg Q4HPRN PRN IV NAUSEA / VOMITING 06/04/24 10:30 Diagnostic Test (Pha) (Accu-Chek Comfort Curve T) 1 strip ACHS 06/04/24 11:30 06/04/24 11:48 Insulin Human Regular (InsuLIN R) ACHS SC 06/04/24 11:30 Dextrose 50 ml UD PRN IV Blood Sugar LESS THAN 60 06/04/24 10:30 Review of Systems 12 point ROS negative except as stated in HPI Vital Signs Vital Signs Date Time Temp Pulse Resp B/P (MAP) Pulse Ox O2 Delivery O2 Flow Rate FiO2 06/04/24 16:01 84 18 162/68 (99) 97 06/04/24 07:30 Nasal Cannula* 2 28 06/03/24 23:15 98.4 98.4 Physical Exam Arousable Mucosa dry Lungs : Bilateral CTA CVS : S1,S2 RRR Abd : soft , BS + [employer] REPRESENTATIVE : No focal deficits Ext : No edema Labs/Diagnostic Data Labs Test 06/04/24 11:52 06/04/24 10:45 06/03/24 22:35 06/03/24 21:46 Range/Units POC Glucose 113 H 70-106 mg/dl White Blood Count 10.5 4.4-10.8 10^3/uL Red Blood Count 4.69 4.5-5.90 10^6/uL Hemoglobin 13.6 13.5-17.5 g/dL Hematocrit 42.3 41.0-53.0 % Mean Corpuscular Volume 90.2 80.0-100.0 fL Mean Corpuscular Hemoglobin 29.0 28.0-32.0 pg Mean Corpuscular Hemoglobin Concent 32.1 32.0-36.0 g/dL Red Cell Distribution Width 20.7 H 11.8-14.3 % Platelet Count 202 140-450 10^3/uL Mean Platelet Volume 7.9 6.9-10.8 fL Neutrophils (%) (Auto) 67.9 37.0-80.0 % Lymphocytes (%) (Auto) 12.3 10.0-50.0 % Monocytes (%) (Auto) 19.4 H 0.0-12.0 % Eosinophils (%) (Auto) 0.3 0.0-7.0 % Basophils (%) (Auto) 0.1 0.0-2.0 % Neutrophils # (Auto) 7.1 1.6-8.6 10 ^3/uL Lymphocytes # (Auto) 1.3 0.4-5.4 10 ^3/uL Monocytes # (Auto) 2.0 H 0-1.3 10 ^3/uL Eosinophils # (Auto) 0 0-0.8 10 ^3/uL Basophils # (Auto) 0 0-0.2 10 ^3/uL Nucleated Red Blood Cells 0.3 % Platelet Estimate Adequate Anisocytosis (manual) Slight Sodium Level 132 L 136-145 mmol/L Potassium Level 3.9 3.5-5.1 mmol/L Chloride Level 95 L 98-107 mmol/L Carbon Dioxide Level 25 20-31 mmol/L Anion Gap 12 5-15 Blood Urea Nitrogen 38 H 9-23 mg/dL Creatinine 6.53 H 0.700-1.30 mg/dL Glomerular Filtration Rate Calc 8 >90 mL/min BUN/Creatinine Ratio 5.8 L 10.0-20.0 Serum Glucose 107 H 74-106 mg/dL Calcium Level 9.4 8.7-10.4 mg/dL Magnesium Level 2.2 1.6-2.6 mg/dL Troponin I High Sensitivity 80 *H </=54 ng/L Lactic Acid Level 2.5 *H 0.4-2.0 mmol/L Test 06/03/24 19:40 Range/Units D-Dimer, Quantitative 2.19 H 0.0-0.49 mg/L FEU Total Bilirubin 0.2 0.2-1.0 mg/dL Aspartate Amino Transferase (AST) 28 13-40 U/L Alanine Aminotransferase (ALT) 16 7-40 U/L Alkaline Phosphatase 79 46-116 U/L B-Type Natriuretic Peptide 632.96 0-100 pg/mL Total Protein 7.1 5.7-8.2 g/dL Albumin 3.8 3.2-4.8 g/dL Assessment ESKD on HD Diarrhea, rule out C diff colitis Acute metabolic encephalopathy Lactic acidosis Hyponatremia COPD History of CHF Type 2 diabetes Hypertension Elevated troponin Mild pulmonary edema History of recent DVT of the right arm Plan/Recommendation No evidence of fluid overload . Electrolytes WNL Continue HD on TTS schedule stool for C diff Plan discussed with: JENNIFER Palacios MD Jun 04, 2024 17:05
[2024-06-04 19:24] VITALS: PULSE 84; RESP 16; O2SAT 99
[2024-06-04] MEDS: HYDROcodone-ACET 5/325MG TAB PO ONE (21:26)
[2024-06-05 06:29] LABS: Basophils # (auto) 0 10 ^3/uL (0-0.2); Basophils % (auto) 0.3 % (0.0-2.0); Eosinophils # (auto) 0.2 10 ^3/uL (0-0.8); Hemoglobin 13.1 g/dL (13.5-17.5); Lymphocytes # (auto) 1.3 10 ^3/uL (0.4-5.4); Lymphocytes % (auto) 13.2 % (10.0-50.0); Mean Corpuscular Hemoglobin 29.2 pg (28.0-32.0); Mean Corpuscular Hgb Conc. 32.8 g/dL (32.0-36.0); Monocytes # (auto) 1.6 10 ^3/uL (0-1.3); Monocytes % (auto) 15.9 % (0.0-12.0); Neutrophils # (auto) 6.8 10 ^3/uL (1.6-8.6); Neutrophils % (auto) 68.6 % (37.0-80.0); Nucleated Red Blood Cells % 0.1 %; Platelet Count (auto) 192 10^3/uL (140-450); Red Blood Cells 4.49 10^6/uL (4.5-5.90); Red Cell Distribution Width 20.2 % (11.8-14.3); White Blood Cell 9.8 10^3/uL (4.4-10.8)
[2024-06-05 06:45] LABS: Alkaline Phosphatase 70 U/L (46-116); Calcium 9.2 mg/dL (8.7-10.4); Carbon Dioxide 24 mmol/L (20-31); Glucose 80 mg/dL (74-106)
[2024-06-05 06:46] LABS: Albumin 3.5 g/dL (3.2-4.8); Anion Gap 12 (5-15); Aspartate Aminotransferase 17 U/L (13-40); BUN/Creatinine Ratio 6.7 (10.0-20.0); Magnesium 2.2 mg/dL (1.6-2.6); Total Protein 6.8 g/dL (5.7-8.2)
[2024-06-05 06:52] LABS: Alanine Aminotransferase < 9 U/L (7-40); Bilirubin, Total 0.2 mg/dL (0.2-1.0); Blood Urea Nitrogen 54 mg/dL (9-23); Chloride 95 mmol/L (98-107); Sodium 131 mmol/L (136-145)
[2024-06-05 08:00] VITALS: PULSE 76; O2SAT 96
[2024-06-05] MEDS: PANTOPRAZOLE 40 MG/10 ML VIAL INJ IV SCH (10:39)
[2024-06-05] MEDS: CLOPIDOGREL BISULFATE 75 MG TAB PO SCH (10:40)
[2024-06-05] MEDS: MINOXIDIL 2.5 MG TAB PO SCH (10:40)
[2024-06-05] MEDS: CARVEDILOL 3.125 MG TAB PO SCH (10:41)
--- NOTE | 2024-06-05 10:46 | DVH ---
BILATERAL LOWER EXTREMITY VENOUS DOPPLER CLINICAL HISTORY: ELEVATED D DIMER Technique: Duplex Doppler evaluation of the deep venous systems of both lower extremities from the co mmon femoral veins to the popliteal veins including color Doppler and spectral/pulsed waveform analys is was performed. COMPARISON: US BI LAT UPPER DVT on DOS: 02/19/24, US BILAT LOWER DVT on DOS: 02/17/24 FINDINGS: The right and left common femoral, superficial femoral, popliteal, posterior tibial veins appear pa tent with normal augmentation, phasicity, compressibility and color-flow. IMPRESSION: 1. There is no sonographic evidence for DVT in the lower extremities. HS:Y
--- NOTE | 2024-06-05 10:58 | ECG ---
[facility] Test Date: 2024-06-03 Test Time: 19:16:27 Pat Name: LIZBETH LU Department: er Room: 0234 Gender: M Briquette Molder: RAMOS : 1945 Requested By: NICOLE QUIROGA Order Number: [id number] Reading MD: Noah Alan Measurements Intervals [place] Rate: 111 P: 0 OK: 0 QRS: 24 QRSD: 168 T: 225 QT: 414 QTc: 563 Interpretive Statements Wide complex tachycardia Electronically Signed On 06-11-2024 14:45:29 PST by Noah Alan Please click the below link to view image of tracing.
--- NOTE | 2024-06-05 11:01 | DVHINCON2 ---
Date of service: Jun 05, 2024 History of Present Illness HPI Patient is a 78-year-old gentleman who presented the hospital with altered level of consciousness. Reportedly, the patient woke up altered and confused and the family decided to bring him to the hospital. Since admission, there was a question about bradycardia. It is of note that the patient did have diarrhea for few days prior to presentation and has had recent C diff colitis for which has been treated. Cardiology is involved for cardiac as base of care. Patient is known to our practice from before. Home Meds Reported Medications Pantoprazole Sodium Sesquihydr (Protonix) 40 Mg Tab, 40 MG PO DAILY, #30 TAB 10/28/23 Amlodipine Besylate (NORVASC TABLET) 5 Mg Tb, 10 MG PO DAILY, TAB 10/28/23 Docusate Sodium (Colace) 100 Mg Cap, 100 MG PO BIDPRN PRN for FOR CONSTIPATION, CAP 10/28/23 Bupropion HCl (Bupropion Hydrochloride) 75 Mg Tab, 75 MG PO BID, TAB 10/28/23 Atorvastatin Calcium (ATORVASTATIN CALCIUM) 40 Mg Tab, 1 TAB PO QPM, #90 TAB 3 Refills 10/28/23 Minoxidil (Loniten) 2.5 Mg Tb, 1 TAB PO BID 09/15/23 Omeprazole (Gnp Omeprazole) 20 Mg Tab, 1 TAB PO DAILY 09/15/23 Hydralazine Hcl (Hydralazine Hcl) 50 Mg Tab, 1 TAB PO QID 09/15/23 Aspirin (Aspirin Low Dose) 81 Mg Chw, 1 TAB PO DAILY 09/15/23 Hydrocodone-Acetaminophen (Hydrocodone Bitartrate/AC 5-325 mg) 1 Tab Tab, 1 TAB PO Q6HP PRN for PAIN SCALE 7 THRU 10 09/15/23 Benzonatate (Benzonatate) 100 Mg Cap, 1 CAP PO TID PRN for COUGH for 10 Days, #30 09/15/23 Nitroglycerin (Nitrostat) 0.4 Mg Sub, 1 TAB SL Q5MIN PRN for CHEST PAIN for 30 Days, #25 09/15/23 Nifedipine (Nifedipine Er) 30 Mg Tab, 2 TAB PO BID 09/15/23 Duloxetine HCl (Duloxetine HCl) 30 Mg Cap, 1 CAP PO DAILY 09/15/23 Past Medical History Others Past medical history includes end-stage renal disease on hemodialysis, old history of CVA (2018), poor functional capacity, coronary artery disease and status post PCI (last stent in July 2023, ostial LAD), COPD, obstructive sleep apnea, diabetes mellitus, hypertension, anemia (history of repeated transfu sions), CHF, SVT, pulmonary hypertension (considered type 2), history of pancytopenia (resolved later), history of DVT in upper extremity, repeated/significant GI bleedings and ex-smoker. Past medical history also includes DVT in the right upper extremity, history of septic shock, history of pneumonia, sick sinus syndrome and status post pacemaker (Micra/Medtronic) implantation. Patient Family History: Family history: Cardiovascular disease G8 BROTHER Family history: Diabetes mellitus G8 MOTHER G8 FATHER G8 BROTHER Family history: Hypertension G8 MOTHER G8 FATHER G8 BROTHER Stroke G8 MOTHER Smoker: Quit Alocohol: None Drugs: None Lives with: With family Review of Systems Constitutional: No symptom reported Pulmonary/Respiratory: Dyspnea All Other Systems Fourteen point review of system was performed. Relevant findings as per above and as per HPI. Otherwise negative. H&P Exam Vital Signs Vital Signs Date Time Temp Pulse Resp B/P (MAP) Pulse Ox O2 Delivery O2 Flow Rate FiO2 06/05/24 10:41 78 151/69 06/05/24 10:00 16 97 06/05/24 08:00 Nasal Cannula* 3 32 06/05/24 08:00 97.7 97.7 General Appeara: Well developed, Cachetic Head Exam: Normal inspection Eye Exam: bilateral eye PERRL Mouth: Normal Inspection Pulmonary/Respiratory: Rhonci Cardiovascular/Chest: Normal inspection, Regular rate, Systolic murmur Peripheral Pulses: 2+ carotid (R), 2+ carotid (L), 2+ femoral (R), 2+ femoral (L), 2+ dorsalis pedis (R), 2+ dorsalis pedis (L), 2+ Radial (R), 2+ Radial (L) Abdominal Exam: Normal bowel sounds, Soft Neuro/Mental St: Alert, Oriented Appearance: Appropriate appearance Eye contact/ Speech: Cooperative Labs/Xrays Labs Test 06/05/24 06:31 06/05/24 06:00 06/04/24 14:40 06/04/24 10:45 Range/Units POC Glucose 75 70-106 mg/dl White Blood Count 9.8 4.4-10.8 10^3/uL Red Blood Count 4.49 L 4.5-5.90 10^6/uL Hemoglobin 13.1 L 13.5-17.5 g/dL Hematocrit 40.0 L 41.0-53.0 % Mean Corpuscular Volume 89.0 80.0-100.0 fL Mean Corpuscular Hemoglobin 29.2 28.0-32.0 pg Mean Corpuscular Hemoglobin Concent 32.8 32.0-36.0 g/dL Red Cell Distribution Width 20.2 H 11.8-14.3 % Platelet Count 192 140-450 10^3/uL Mean Platelet Volume 7.8 6.9-10.8 fL Neutrophils (%) (Auto) 68.6 37.0-80.0 % Lymphocytes (%) (Auto) 13.2 10.0-50.0 % Monocytes (%) (Auto) 15.9 H 0.0-12.0 % Eosinophils (%) (Auto) 2.0 0.0-7.0 % Basophils (%) (Auto) 0.3 0.0-2.0 % Neutrophils # (Auto) 6.8 1.6-8.6 10 ^3/uL Lymphocytes # (Auto) 1.3 0.4-5.4 10 ^3/uL Monocytes # (Auto) 1.6 H 0-1.3 10 ^3/uL Eosinophils # (Auto) 0.2 0-0.8 10 ^3/uL Basophils # (Auto) 0 0-0.2 10 ^3/uL Nucleated Red Blood Cells 0.1 % Sodium Level 131 L 136-145 mmol/L Potassium Level 4.0 3.5-5.1 mmol/L Chloride Level 95 L 98-107 mmol/L Carbon Dioxide Level 24 20-31 mmol/L Anion Gap 12 5-15 Blood Urea Nitrogen 54 #H 9-23 mg/dL Creatinine 8.08 H 0.700-1.30 mg/dL Glomerular Filtration Rate Calc 6 >90 mL/min BUN/Creatinine Ratio 6.7 L 10.0-20.0 Serum Glucose 80 74-106 mg/dL Calcium Level 9.2 8.7-10.4 mg/dL Magnesium Level 2.2 1.6-2.6 mg/dL Total Bilirubin 0.2 0.2-1.0 mg/dL Aspartate Amino Transferase (AST) 17 13-40 U/L Alanine Aminotransferase (ALT) < 9 7-40 U/L Alkaline Phosphatase 70 46-116 U/L Total Protein 6.8 5.7-8.2 g/dL Albumin 3.5 3.2-4.8 g/dL Stool Occult Blood Negative Negative Stool Occult Blood Sample #3 Negative Stool for White Cells Few Platelet Estimate Adequate Anisocytosis (manual) Slight Test 06/03/24 22:35 06/03/24 21:46 06/03/24 19:40 Range/Units Troponin I High Sensitivity 80 *H </=54 ng/L Lactic Acid Level 2.5 *H 0.4-2.0 mmol/L D-Dimer, Quantitative 2.19 H 0.0-0.49 mg/L FEU B-Type Natriuretic Peptide 632.96 0-100 pg/mL Microbiology Date/Time Source Procedure Growth Status 06/04/24 14:40 Stool Stool Culture - Preliminary Resulted 06/04/24 14:40 Stool Shiga Toxin I & II Pending Resulted 06/04/24 14:40 Stool Clostridium difficile Toxin Assay Pending Resulted Assessment/Plan Plan Patient is a 78-year-old gentleman who presented the hospital with altered level of consciousness. Reportedly, the patient woke up altered and confused and the family decided to bring him to the hospital. Since admission, there was a question about bradycardia (if pacemaker is working correctly?). It is of note that the patient did have diarrhea for few days prior to presentation and has had recent C diff colitis for which has been treated. Cardiology is involved for cardiac as base of care. Patient is known to our practice from before. He does have history of coronary artery disease and has had stent last year. Serial troponin has only been minimally elevated and flat. Patient does have history of pacemaker (micro/Medtronic) implantation. Has had DVT before and was treated for sepsis in prior admissions. He was previously kept on aspirin/Eliquis (has history of anemia and blood transfusions). Later, as he could not tolerate anticoagulation, he was kept on Plavix daily. Does have history of end-stage renal disease and is on hemodialysis. Frail gentleman, pale and wet mucosa. No carotid bruit, no goiter. Lungs: Scattered rhonchi in the lungs, cardiac: Regular, systolic murmur in the apex is heard. Abdomen is soft and distended. Bowel sound is positive. There is no gross mass. Extremities reveal 1+ edema bilaterally. Dorsalis pedis is 2+ bilateral. Past medical history includes end-stage renal disease on hemodialysis, old history of CVA (2018), poor functional capacity, coronary artery disease and status post PCI (last stent in July 2023, ostial LAD), COPD, obstructive sleep apnea, diabetes mellitus, hypertension, anemia (history of repeated transfusions), CHF, SVT, pulmonary hypertension (considered type 2), history of pancytopenia (resolved later), history of DVT in upper extremity, repeated/significant GI bleedings and ex-smoker. Past medical history also includes DVT in the right upper extremity, history of septic shock, history of pneumonia, sick sinus syndrome and status post pacemaker (Micra/Medtronic) implantation. Echocardiogram of January 2024 had revealed: Ejection fraction of 40-45%, anterior/anteroseptal hypokinesia, biatrial enlargement, right ventricular systolic pressure 45 mm Hg. Echocardiogram October 28, 2023 had revealed mild concentric left ventricular hypertrophy, LVEF of 52% with mild diffuse hypokinesis, dilated RV/LA/RA, [id number] aortic insufficiency, mild MR, moderate TR and right ventricular systolic pressure of 60 mm Hg Echocardiogram of November 08, 2023 (performed in [facility]) had reported: LVEF of 50%, [id number] TR, mild aortic insufficiency and right ventricular systolic pressure of 49 mm Hg Echocardiogram of September 15, 2023 (performed and [facility]) revealed ejection fraction of 45-50% Echocardiogram of March 22, 2023 (performed in the office) revealed ejection fraction of 65-70%, mild concentric left ventricular hypertrophy, moderate biatrial enlargement, [id number] MR/TR, mild AI/PI and right ventricular systolic pressure of 66 mm Hg. Left heart catheterization on August 04, 2023 revealed: 1 vessel coronary artery disease and status post PCI (drug-eluting stent deployment of ostial LAD, LVEF of 60% with increased LVEDP, patent stent in mid LAD, type 2 pulmonary hypertension. Creatinine: 5.13 - 6.53 - 8.08 Potassium: 4.3 - 3.9 - 4.0 Sodium: 133 - 132 - 131 Lactic acid: 2.2 - 2.5 D-dimer: 2.19 Troponin (high sensitive): 76 - 78 - 80 BNP: 632.96 Chest x-ray reviewed: IMPRESSION: 1. Probable mild interstitial pulmonary edema. CT of the head revealed: IMPRESSION: 1. No acute intracranial abnormality. CT angiography showed lungs are revealed: 1. Evaluation of the pulmonary arteries is limited secondary to poor contrast bolus timing. There is no obvious pulmonary arterial filling defect to suggest pulmonary embolism. 2. Scarring versus atelectasis in the bilateral lower lobes. Venous duplex of lower extremities revealed: IMPRESSION: 1. There is no sonographic evidence for DVT in the lower extremities. EKG reveals sinus rhythm with occasions of paced ventricular rhythm Repeat EKG questions PAT Tele reveals sinus rhythm with paced ventricular Echocardiogram reported: Left ventricle: Mild concentric left ventricular hypertrophy was seen. LVEF was 45-50%. Right ventricle was normal sized with normal systolic function. Both atria were mildly dilated. Aortic valve: Aortic valve was trileaflet. There was mild aortic insufficiency. There was no aortic stenosis. There was trivial mitral regurgitation. There was mild tricuspid regurgitation. Pulmonary valve was not well visualized. Right ventricular systolic pressure was assessed around 48 mm Hg. There was no pericardial effusion. IVC was not well visualized. Patient is a 78-year-old gentleman who presented with shortness of breath. T here was question if patient has significant bradycardia. It is of note the patient does have pacemaker ([employer]ono[employer]). Patient's pacemaker was interrogated last in May 18, 2024 in the office and was working perfectly at that time. Reinterrogation of the pacemaker can be justified. Patient has history of DVT for which was on Eliquis previously but could not tolerate it (repeated GI bleeding). Patient does have history of coronary artery disease and has had stents in the LAD. He has been kept on Plavix as outpatient at this point. It is also of note that the patient does have pulmonary hypertension which could have contributed to the clinical picture and abnormal troponin. His compliance on medication it is questionable. Acute respiratory failure Acute on chronic heart failure (possibly diastolic) Coronary artery disease, status post PCI Abnormal troponin, considered demand physiology at this point Pulmonary hypertension, type 2 End-stage renal disease on hemodialysis History of DVT, history of Abnormal D-dimer, pulmonary emboli was ruled out by CT angiography of the lungs Internal Jugular and subclavian DVT, hold s/p GI bleeding, old s/p arrest (post GI bleeding), old Acute PE was ruled out Cardiac suggestion for management: Manage in tele Follow-up electrolytes and kidney function tests and correct abnormalities. Continuation of beta-louie (carvedilol at 6.25 mg twice daily) suggested Continue Plavix at 75 mg daily Request for interrogation of pacemaker (Medtronic/Micra) Hemodialysis as per Nephrology Thank you for consulting Further evaluation and management depends on the above and clinical course A total of 75 minutes was spent reviewing the patient record, examining the patient, making a diagnostic and therapeutic plan, discussing this plan with medical personnel, following up on diagnostic studies and following the patient for clinical stability excluding any and all procedures. At least 50% of this time was spent in direct, [id number] contact. Thank you for allowing me to participate in this patient's care. Further recommendations will depend on patient's clinical course. Please do not hesitate to contact me if you have any questions or concerns. This medical document was created using electronic medical record system with [employer] computerized dictation system. Although this document has been carefully reviewed, there may still be some phonetic and typographical errors. These areas are purely typographical due to the imperfection of the software programs, and do not reflect any compromise in the patient's medical care. Plan discussed with: Patient, Other (nurse) NICOLE KERNS MD Jun 05, 2024 11:01
--- NOTE | 2024-06-05 11:33 | DVH ---
CTA CHEST INDICATION: ELEVATED D DIMER, R/O PT TECHNIQUE: Multidetector CTA of the chest was performed of the chest with 100 cc of intravenous contr ast. PULMONARY ANGIOGRAPHY PROTOCOL was utilized using a bolus-tracking technique centered on the erasot n pulmonary artery. Axial, coronal and sagittal multiplanar and MIP reformats were performed. Radiation Dose Information: CT Dose: CTDI volume is 23.68 mGy. Dose-length product is 391.35 mGy*cm The dose indicators for CT are the volume Computed Tomography (CT) Dose Index (CTDIvol) and the Dose Length Product (DLP), and are measured in units of mGy and mGy-cm, respectively. These indicators are not patient dose, but values generated from the CT scanner acquisition factors. The report includes radiation exposure data for exposures received during this examination. Findings: Pulmonary artery: Evaluation of the pulmonary arteries is limited secondary to poor contrast bolus t iming. There is no obvious pulmonary arterial filling defect to suggest pulmonary embolism. The main pulmonary artery appears within normal limits. Lungs/Pleura: There is scarring versus atelectasis in the bilateral lower lobes. No focal consolidati on, pulmonary mass, or suspicious pulmonary nodule. There is no pleural effusion. Heart/Vascular Structures: Normal heart size. The thoracic aorta demonstrates normal caliber. There is no evidence of pericardial effusion. Lymph Nodes: There is no evidence of thoracic lymphadenopathy. Musculoskeletal: No acute osseous abnormality. Upper abdomen: Limited portions of the upper abdomen are unremarkable. IMPRESSION: 1. Evaluation of the pulmonary arteries is limited secondary to poor contrast bolus timing. There is no obvious pulmonary arterial filling defect to suggest pulmonary embolism. 2. Scarring versus atelectasis in the bilateral lower lobes. HS:Y
--- NOTE | 2024-06-05 12:59 | DVHPN2 ---
Progress Note - Dictate Date Seen: Jun 05, 2024 Has the PT tested + for MRSA If YES, has PT been informed?: Yes Medical Necessity Reason Pt with a Central, PICC or Fol: Yes Subjective Patient has no complaints except for on and off chest pain. His is at bedside. vital signs Vital Sign Date Time Temp Pulse Resp B/P (MAP) Pulse Ox O2 Delivery O2 Flow Rate FiO2 06/05/24 10:41 78 151/69 06/05/24 10:00 16 97 06/05/24 08:00 Nasal Cannula* 3 32 06/05/24 08:00 97.7 97.7 Total Intake and Output 06/04/24 06/04/24 06/05/24 15:00 23:00 07:00 Intake Total 150 ml Balance 150 ml medications Current Medications Medications Dose Ordered Sig/Nereyda Route Start Time Stop Time Status Last Admin Dose Admin Nitroglycerin 0.4 mg Q5MINP PRN SL 06/04/24 10:15 Morphine Sulfate 2 mg Q30M PRN IV 06/04/24 10:15 Pantoprazole Sodium 40 mg DAILY IV 06/05/24 10:00 06/05/24 10:39 40 MG Acetaminophen 650 mg Q6HP PRN PO 06/04/24 10:30 Ondansetron HCl 4 mg Q4HPRN PRN IV 06/04/24 10:30 Diagnostic Test (Pha) 1 strip ACHS 06/04/24 11:30 06/05/24 11:32 1 STRIP Insulin Human Regular ACHS SC 06/04/24 11:30 06/04/24 21:33 3 UNITS Dextrose 50 ml UD PRN IV 06/04/24 10:30 Minoxidil 2.5 mg DAILY PO 06/05/24 10:00 06/05/24 10:40 2.5 MG Carvedilol 6.25 mg Q12HR PO 06/05/24 10:00 06/05/24 10:41 6.25 MG Clopidogrel Bisulfate 75 mg DAILY PO 06/05/24 10:00 06/05/24 10:40 75 MG objective HEENT: No evidence of JVD, no oral ulcers. Pulmonary: Lungs are clear on auscultation bilaterally Cardiovascular S1-S2, no S3 or S4 Abdomen: Bowel sounds positive, soft no rebound tenderness Skin: No rash Neurological: Alert, oriented, no focal weakness laboratory and microbiology Laboratory Tests 06/05/24 06:00 Test 06/05/24 06:00 Range/Units Serum Glucose 80 74-106 mg/dL Assessment/Plan Assessment ESKD on HD Diarrhea, C diff associated and Campylobacter Acute metabolic encephalopathy Lactic acidosis Hyponatremia COPD History of CHF Type 2 diabetes Hypertension Elevated troponin Mild pulmonary edema History of recent DVT of the right arm Plan/Recommendation Hemodialysis on TTS scheduled. Aim for 1-2 L fluid removal. Electrolytes WNL Infectious disease consultation Renally dose antibiotics. Lee for goal hemoglobin 10 to 11 grams/deciliter. Plan of care from Nephrology was discussed with the of the patient. Thank you very much for allowing us to participate in the care of this patient. Plan discussed with: Patient, Spouse MARVIN PRAKASH MD Jun 05, 2024 12:59
[2024-06-05] MEDS: IOHEXOL 350 MG/ML 100ML IJ ONE (13:10)
--- NOTE | 2024-06-05 17:05 | DVHSR ---
APPROVED REPORT EXAM: Two-dimensional and M-mode echocardiogram with Doppler and color Doppler. Blood Pressure: 145/65 mmHg INDICATION Cardiology RISK FACTORS Height: 5'6", Weight: 149 DIMENSIONS LVDd4.5 (3.8-5.7cm)LA (2D)4.3 (1.9-4.0cm)Aortic Root3.2 (2.0-3.7cm) LVDs3.3 (2.5-4.0cm)LA (MM) (1.9-4.0cm)Aortic Cusp Exc1.3 (1.5-2.0cm) EF (%) 50.0 (55-70%)Rt. Atrium3.6 (1.9-4.0cm)Asc. Aorta cm IVSd1.3 (0.7-1.1cm)RV (D)4.3 (1.8-2.4cm) PWd1.3 (0.7-1.1cm) Mitral Valve MitralMitral Stenosis E wave0.71m/sMV Mean GR.mmHg A wave0.73m/sMV Peak GR.mmHg E/A ratio1.02D MVAcm2 DECEL [id number] 1/2 Timems Aortic Valve Aortic ValveAortic Stenosis V10.90m/Jean Mean GR.5mmHg V21.59m/Jean Peak GR.10mmHg LVOT Diameter2.2 (1.8-2.4cm)Doppler AVA2.15cm2 2D AVA2.67cm2 AI P 1/2 [id number] Pulmonic Valve V20.98m/s Tricuspid Valve TR Velocity3.17m/s [id number] Conclusion Left ventricle: Mild concentric left ventricular hypertrophy was seen. LVEF was 45-50%. Right ventricle was normal sized with normal systolic function. Both atria were mildly dilated. Aortic valve: Aortic valve was trileaflet. There was mild aortic insufficiency. There was no aortic stenosis. There was trivial mitral regurgitation. There was mild tricuspid regurgitation. Pulmona ry valve was not well visualized. Right ventricular systolic pressure was assessed around 48 mm Hg. There was no pericardial effusion. IVC was not well visualized.
[2024-06-05 19:58] VITALS: PULSE 77; RESP 17; O2SAT 100
--- NOTE | 2024-06-05 20:01 | DVHINCON2 ---
Date of service: Jun 05, 2024 Referring Physician Zahira Stinson MD Reason for Consultation Chronic hypoxic respiratory failure, COPD, atelectasis History of Present Illness A 78-year-old man with PMHx that includes COPD, ESRD on hemodialysis, hypertension, coronary artery disease, and type 2 diabetes, who presented to ED on 06/04/24 with c/o altered level of consciousness. Reportedly, the patient became altered and lethargic after dialysis the night prior to presentation and family decided to bring him to ED. Of note, the patient did have diarrhea for few days prior to presentation and has had recent C diff colitis which has been treated at [facility] - was sent home with vancomycin which he completed a week ago. Denies any blood in the diarrhea. Pt had a pacemaker done approximately November 2023 and was checked about a month ago by Dr. Gaffney. Patient was admitted for further care and pulmonary consultation is requested for evaluation and management of chronic hypoxic respiratory failure, COPD, atelectasis. Review of Systems: 14-point review of systems negative unless otherwise noted above. Past Medical History: COPD, coronary artery disease, hypertension, CHF, End-stage renal disease on hemodialysis, type II DM, GI bleed, anxiety. Past Surgical History: Pacemaker, dialysis access. Medications: Reviewed. Allergies: Lisinopril. Family History: Heart disease, diabetes mellitus, hypertension, stroke. Social History: Nonsmoker. No alcohol or illicit drug use. Family History: Family history: Cardiovascular disease G8 BROTHER Family history: Diabetes mellitus G8 MOTHER G8 FATHER G8 BROTHER Family history: Hypertension G8 MOTHER G8 FATHER G8 BROTHER Stroke G8 MOTHER Allergies: Coded Allergies: Lisinopril (Verified Adverse Reaction, Severe, ANGIOEDEMA, 09/23/23) FACE,TONGUE, LIP SWELLING Home Meds Reported Medications Pantoprazole Sodium Sesquihydr (Protonix) 40 Mg Tab, 40 MG PO DAILY, #30 TAB 10/28/23 Amlodipine Besylate (NORVASC TABLET) 5 Mg Tb, 10 MG PO DAILY, TAB 10/28/23 Docusate Sodium (Colace) 100 Mg Cap, 100 MG PO BIDPRN PRN for FOR CONSTIPATION, CAP 10/28/23 Bupropion HCl (Bupropion Hydrochloride) 75 Mg Tab, 75 MG PO BID, TAB 10/28/23 Atorvastatin Calcium (ATORVASTATIN CALCIUM) 40 Mg Tab, 1 TAB PO QPM, #90 TAB 3 Refills 10/28/23 Minoxidil (Loniten) 2.5 Mg Tb, 1 TAB PO BID 09/15/23 Omeprazole (Gnp Omeprazole) 20 Mg Tab, 1 TAB PO DAILY 09/15/23 Hydralazine Hcl (Hydralazine Hcl) 50 Mg Tab, 1 TAB PO QID 09/15/23 Aspirin (Aspirin Low Dose) 81 Mg Chw, 1 TAB PO DAILY 09/15/23 Hydrocodone-Acetaminophen (Hydrocodone Bitartrate/AC 5-325 mg) 1 Tab Tab, 1 TAB PO Q6HP PRN for PAIN SCALE 7 THRU 10 09/15/23 Benzonatate (Benzonatate) 100 Mg Cap, 1 CAP PO TID PRN for COUGH for 10 Days, #30 09/15/23 Nitroglycerin (Nitrostat) 0.4 Mg Sub, 1 TAB SL Q5MIN PRN for CHEST PAIN for 30 Days, #25 09/15/23 Nifedipine (Nifedipine Er) 30 Mg Tab, 2 TAB PO BID 09/15/23 Duloxetine HCl (Duloxetine HCl) 30 Mg Cap, 1 CAP PO DAILY 09/15/23 Current Medications Current Medications Medications (Trade) Dose Ordered Sig/Nereyda Route PRN Reason Start Time Stop Time Status Last Admin Pantoprazole Sodium (Protonix) 40 mg DAILY IV 06/05/24 10:00 06/05/24 10:39 Minoxidil (Loniten Tablet) 2.5 mg DAILY PO 06/05/24 10:00 06/05/24 10:40 Carvedilol (Coreg Tablet) 6.25 mg Q12HR PO 06/05/24 10:00 06/05/24 10:41 Clopidogrel Bisulfate (Plavix) 75 mg DAILY PO 06/05/24 10:00 06/05/24 10:40 Vital Signs Vital Signs Date Time Temp Pulse Resp B/P (MAP) Pulse Ox O2 Delivery O2 Flow Rate FiO2 06/05/24 19:30 98.2 61 17 125/62 (83) 96 98.2 06/05/24 18:00 Room Air* 0 21 Physical Exam Gen.: Patient lying in bed in no apparent distress. On supplemental oxygen. Head: Normocephalic, atraumatic. Eyes: EOMI/PERRLA. Ears: Normal hearing. Normal anatomy. Neck/trachea: Trachea midline, supple. Nose: Normal external anatomy. Mouth: Moist mucous membranes. Chest: Decreased air entry bilaterally. No wheezing or rhonchi. Cardiovascular: Positive S1, positive S2. Regular rate and rhythm. Abdomen: Positive bowel sounds in all 4 quadrants. Soft, non-tender, non- distended. : Deferred. Rectal: Deferred. Skin: Warm, dry. Intact. Extremities: 2+ radial pulses bilaterally. No lower extremity edema. Neuro: Awake, alert, oriented x3. No gross motor or sensory deficits. Cranial nerves II through XII intact. Gait not assessed. Labs/Diagnostic Data Labs Test 06/05/24 18:11 06/05/24 06:00 06/04/24 14:40 06/04/24 10:45 Range/Units POC Glucose 108 H 70-106 mg/dl White Blood Count 9.8 4.4-10.8 10^3/uL Red Blood Count 4.49 L 4.5-5.90 10^6/uL Hemoglobin 13.1 L 13.5-17.5 g/dL Hematocrit 40.0 L 41.0-53.0 % Mean Corpuscular Volume 89.0 80.0-100.0 fL Mean Corpuscular Hemoglobin 29.2 28.0-32.0 pg Mean Corpuscular Hemoglobin Concent 32.8 32.0-36.0 g/dL Red Cell Distribution Width 20.2 H 11.8-14.3 % Platelet Count 192 140-450 10^3/uL Mean Platelet Volume 7.8 6.9-10.8 fL Neutrophils (%) (Auto) 68.6 37.0-80.0 % Lymphocytes (%) (Auto) 13.2 10.0-50.0 % Monocytes (%) (Auto) 15.9 H 0.0-12.0 % Eosinophils (%) (Auto) 2.0 0.0-7.0 % Basophils (%) (Auto) 0.3 0.0-2.0 % Neutrophils # (Auto) 6.8 1.6-8.6 10 ^3/uL Lymphocytes # (Auto) 1.3 0.4-5.4 10 ^3/uL Monocytes # (Auto) 1.6 H 0-1.3 10 ^3/uL Eosinophils # (Auto) 0.2 0-0.8 10 ^3/uL Basophils # (Auto) 0 0-0.2 10 ^3/uL Nucleated Red Blood Cells 0.1 % Sodium Level 131 L 136-145 mmol/L Potassium Level 4.0 3.5-5.1 mmol/L Chloride Level 95 L 98-107 mmol/L Carbon Dioxide Level 24 20-31 mmol/L Anion Gap 12 5-15 Blood Urea Nitrogen 54 #H 9-23 mg/dL Creatinine 8.08 H 0.700-1.30 mg/dL Glomerular Filtration Rate Calc 6 >90 mL/min BUN/Creatinine Ratio 6.7 L 10.0-20.0 Serum Glucose 80 74-106 mg/dL Calcium Level 9.2 8.7-10.4 mg/dL Magnesium Level 2.2 1.6-2.6 mg/dL Total Bilirubin 0.2 0.2-1.0 mg/dL Aspartate Amino Transferase (AST) 17 13-40 U/L Alanine Aminotransferase (ALT) < 9 7-40 U/L Alkaline Phosphatase 70 46-116 U/L Total Protein 6.8 5.7-8.2 g/dL Albumin 3.5 3.2-4.8 g/dL Stool Occult Blood Negative Negative Stool Occult Blood Sample #3 Negative Stool for White Cells Few Platelet Estimate Adequate Anisocytosis (manual) Slight Test 06/03/24 22:35 06/03/24 21:46 06/03/24 19:40 Range/Units Troponin I High Sensitivity 80 *H </=54 ng/L Lactic Acid Level 2.5 *H 0.4-2.0 mmol/L D-Dimer, Quantitative 2.19 H 0.0-0.49 mg/L FEU B-Type Natriuretic Peptide 632.96 0-100 pg/mL Microbiology Date/Time Source Procedure Growth Status 06/04/24 14:40 Stool Stool Culture - Preliminary Resulted 06/04/24 14:40 Stool Shiga Toxin I & II - Final Resulted 06/04/24 14:40 Stool Clostridium difficile Toxin Assay - Final Resulted Assessment Impression: Acute metabolic encephalopathy COPD Atelectasis Elevated troponin Chronic hypoxic respiratory failure Dependence on supplemental oxygen Clostridium difficile End-stage renal disease, on hemodialysis Elevated d-dimer, ruled out PE and DVT Plan: Supplemental oxygen 3 LPM NC Titrate to keep O2 sats above 92%. Taper O2 as tolerated. Ultrasound venous Doppler of bilateral lower extremities reveals no e/o DVT. CTA of chest showed no PE. Notable for atelectasis in bilateral lower lobes. Continue bronchodilators PRN Incentive spirometry for atelectasis Accu-Cheks, ISS. Monitor renal function. Monitor electrolytes. Supplement as necessary. Monitor ins and outs. GI prophylaxis - Protonix DVT prophylaxis. Prognosis: Poor given patient's multiple co-morbidities. Rest of plan per hospitalist and other consultants. Thank you, Dr. Stinson, for allowing me to participate in this patient's care. Further recommendations will depend on the patient's clinical course. Please do not hesitate to contact me if you have any questions or concerns. This medical document was created using an electronic medical record system with [employer] dictation system. Although these documentations are being carefully reviewed, there may still be some phonetic and typographical changes. The errors are purely typographical, due to imperfection on the software pr [employer], and do not reflect any compromise in the patient's medical care. Plan discussed with: Patient, Other (HANS Oliva/MD Stinson) JUAN SALDAÑA MD Jun 05, 2024 20:01
[2024-06-05 21:50] VITALS: BP 107/54; PULSE 61; RESP 16; TEMP 97.9; O2SAT 97
[2024-06-05] MEDS ORDERED: CLOP75TA28 PO (22:09)
[2024-06-05] MEDS ORDERED: TRAZ-181 PO (22:18)
[2024-06-05] MEDS ORDERED: PATI1POW PO (22:18)
[2024-06-05] MEDS ORDERED: MECL1TAB42 PO (22:18)
[2024-06-05] MEDS ORDERED: CLON0.1T PO (22:18)
[2024-06-05] MEDS ORDERED: IPR002IS NEB (22:18)
[2024-06-05] MEDS ORDERED: HYDR-4072 PO (22:18)
[2024-06-05] MEDS ORDERED: INS7030I (22:20)
[2024-06-06 05:00] VITALS: BP 142/51; PULSE 72; RESP 18; TEMP 97.8; O2SAT 93
[2024-06-06] MEDS ORDERED: SODIUM CHL 0.9% 1000 ML BAG XX ONE (07:00)
--- NOTE | 2024-06-06 07:38 | DVHPN2 ---
Progress Note - Dictate Date Seen: Jun 06, 2024 Has the PT tested + for MRSA If YES, has PT been informed?: Yes Medical Necessity Reason Pt with a Central, PICC or Fol: Yes vital signs Vital Sign Date Time Temp Pulse Resp B/P (MAP) Pulse Ox O2 Delivery O2 Flow Rate FiO2 06/06/24 05:00 97.8 72 18 142/51 (81) 93 97.8 06/05/24 21:50 Nasal Cannula* 2 28 Total Intake and Output 06/05/24 06/05/24 06/06/24 15:00 23:00 07:00 Intake Total 300 ml Balance 300 ml medications Current Medications Medications Dose Ordered Sig/Nereyda Route Start Time Stop Time Status Last Admin Dose Admin Nitroglycerin 0.4 mg Q5MINP PRN SL 06/04/24 10:15 Morphine Sulfate 2 mg Q30M PRN IV 06/04/24 10:15 Pantoprazole Sodium 40 mg DAILY IV 06/05/24 10:00 06/05/24 10:39 40 MG Acetaminophen 650 mg Q6HP PRN PO 06/04/24 10:30 Ondansetron HCl 4 mg Q4HPRN PRN IV 06/04/24 10:30 Diagnostic Test (Pha) 1 strip ACHS 06/04/24 11:30 06/06/24 07:02 1 STRIP Insulin Human Regular ACHS SC 06/04/24 11:30 06/05/24 22:25 2 UNITS Dextrose 50 ml UD PRN IV 06/04/24 10:30 Minoxidil 2.5 mg DAILY PO 06/05/24 10:00 06/05/24 10:40 2.5 MG Carvedilol 6.25 mg Q12HR PO 06/05/24 10:00 06/05/24 10:41 6.25 MG Clopidogrel Bisulfate 75 mg DAILY PO 06/05/24 10:00 06/05/24 10:40 75 MG laboratory and microbiology Laboratory Tests 06/05/24 06:00 Test 06/05/24 06:00 Range/Units Serum Glucose 80 74-106 mg/dL Assessment/Plan Patient is a 78-year-old gentleman who presented the hospital with altered level of consciousness. Reportedly, the patient woke up altered and confused and the family decided to bring him to the hospital. Since admission, there was a question about bradycardia (if pacemaker is working correctly?). It is of note that the patient did have diarrhea for few days prior to presentation and has had recent C diff colitis for which has been treated. Cardiology is involved for cardiac as base of care. Patient is known to our practice from before. He does have history of coronary artery disease and has had stent last year. Serial troponin has only been minimally elevated and flat. Patient does have history of pacemaker (micro/Medtronic) implantation. Has had DVT before and was treated for sepsis in prior admissions. He was previously kept on aspirin/Eliquis (has history of anemia and blood transfusions). Later, as he could not tolerate anticoagulation, he was kept on Plavix daily. Does have history of end-stage renal disease and is on hemodialysis. Frail gentleman, pale and wet mucosa. No carotid bruit, no goiter. Lungs: Scattered rhonchi in the lungs, cardiac: Regular, systolic murmur in the apex is heard. Abdomen is soft and distended. Bowel sound is positive. There is no gross mass. Extremities reveal 1+ edema bilaterally. Dorsalis pedis is 2+ bilateral. Past medical history includes end-stage renal disease on hemodialysis, old history of CVA (2018), poor functional capacity, coronary artery disease and status post PCI (last stent in July 2023, ostial LAD), COPD, obstructive sleep apnea, diabetes mellitus, hypertension, anemia (history of repeated transfusions), CHF, SVT, pulmonary hypertension (considered type 2), history of pancytopenia (resolved later), history of DVT in upper extremity, repeated/significant GI bleedings and ex-smoker. Past medical history also includes DVT in the right upper extremity, history of septic shock, history of pneumonia, sick sinus syndrome and status post pacemaker (Micra/Medtronic) implantation. Echocardiogram of January 2024 had revealed: Ejection fraction of 40-45%, anterior/anteroseptal hypokinesia, biatrial enlargement, right ventricular systolic pressure 45 mm Hg. Echocardiogram October 28, 2023 had revealed mild concentric left ventricular hypertrophy, LVEF of 52% with mild diffuse hypokinesis, dilated RV/LA/RA, [id number]-[id number] aortic insufficiency, mild MR, moderate TR and right ventricular systolic pressure of 60 mm Hg Echocardiogram of November 08, 2023 (performed in [facility]) had reported: LVEF of 50%, gmxyrfos-[id number] TR, mild aortic insufficiency and right ventricular systolic pressure of 49 mm Hg Echocardiogram of September 15, 2023 (performed and [facility]) revealed ejection fraction of 45-50% Echocardiogram of March 22, 2023 (performed in the office) revealed ejection fraction of 65-70%, mild concentric left ventricular hypertrophy, moderate biatrial enlargement, zyda-[id number] MR/TR, mild AI/PI and right ventricular systolic pressure of 66 mm Hg. Left heart catheterization on August 04, 2023 revealed: 1 vessel coronary artery disease and status post PCI (drug-eluting stent deployment of ostial LAD, LVEF of 60% with increased LVEDP, patent stent in mid LAD, type 2 pulmonary hypertension. Creatinine: 5.13 - 6.53 - 8.08 Potassium: 4.3 - 3.9 - 4.0 Sodium: 133 - 132 - 131 Lactic acid: 2.2 - 2.5 D-dimer: 2.19 Troponin (high sensitive): 76 - 78 - 80 BNP: 632.96 Chest x-ray reviewed: IMPRESSION: 1. Probable mild interstitial pulmonary edema. CT of the head revealed: IMPRESSION: 1. No acute intracranial abnormality. CT angiography showed lungs are revealed: 1. Evaluation of the pulmonary arteries is limited secondary to poor contrast bolus timing. There is no obvious pulmonary arterial filling defect to suggest pulmonary embolism. 2. Scarring versus atelectasis in the bilateral lower lobes. Venous duplex of lower extremities revealed: IMPRESSION: 1. There is no sonographic evidence for DVT in the lower extremities. EKG reveals sinus rhythm with occasions of paced ventricular rhythm Repeat EKG questions PAT Tele reveals sinus rhythm with paced ventricular Echocardiogram reported: Left ventricle: Mild concentric left ventricular hypertrophy was seen. LVEF was 45-50%. Right ventricle was normal sized with normal systolic function. Both atria were mildly dilated. Aortic valve: Aortic valve was trileaflet. There was mild aortic insufficiency. There was no aortic stenosis. There was trivial mitral regurgitation. There was mild tricuspid regurgitation. Pulmonary valve was not well visualized. Right ventricular systolic pressure was assessed around 48 mm Hg. There was no pericardial effusion. IVC was not well visualized. Patient is a 78-year-old gentleman who presented with shortness of breath. There was question if patient has significant bradycardia. It is of note the patient does have pacemaker ([employer]/Medtronic). Patient's pacemaker was interrogated last in May 18, 2024 in the office and was working perfectly at that time. Reinterrogation of the pacemaker can be justified. Patient has history of DVT for which was on Eliquis previously but could not tolerate it (repeated GI bleeding). Patient does have history of coronary artery disease and has had stents in the LAD. He has been kept on Plavix as outpatient at this point. It is also of note that the patient does have pulmonary hypertension which could have contributed to the clinical picture and abnormal troponin. His compliance on medication it is questionable. Acute respiratory failure Acute on chronic heart failure (possibly diastolic) Coronary artery disease, status post PCI Abnormal troponin, considered demand physiology at this point Pulmonary hypertension, type 2 End-stage renal disease on hemodialysis History of DVT, history of Abnormal D-dimer, pulmonary emboli was ruled out by CT angiography of the lungs Internal Jugular and subclavian DVT, hold s/p GI bleeding, old s/p arrest (post GI bleeding), old Acute PE was ruled out Cardiac suggestion for management: Manage in tele Follow-up electrolytes and kidney function tests and correct abnormalities. Continuation of beta-louie (carvedilol at 6.25 mg twice daily) suggested Continue Plavix at 75 mg daily Request for interrogation of pacemaker (Medtronic/Micra) Hemodialysis as per Nephrology Further evaluation and management depends on the above and clinical course A total of 55 minutes was spent reviewing the patient record, examining the patient, making a diagnostic and therapeutic plan, discussing this plan with medical personnel, following up on diagnostic studies and following the patient for clinical stability excluding any and all procedures. At least 50% of this time was spent in direct, [id number] contact. Thank you for allowing me to participate in this patient's care. Further recommendations will depend on patient's clinical course. Please do not hesitate to contact me if you have any questions or concerns. This medical document was created using electronic medical record system with [employer] computerized dictation system. Although this document has been carefully reviewed, there may still be some phonetic and typographical errors. These areas are purely typographical due to the imperfection of the software programs, and do not reflect any compromise in the patient's medical care. Plan discussed with: Patient, Other (nurse) NICOLE KERNS MD Jun 06, 2024 07:38
[2024-06-06 08:00] VITALS: PULSE 70; PULSE 71; RESP 22
[2024-06-06 09:00] VITALS: BP 168/61; PULSE 71; RESP 22; TEMP 97.9; O2SAT 97
[2024-06-06] MEDS: ENOXAPARIN SOD 30 MG/0.3 ML SYRINGE SC SCH (09:44)
[2024-06-06] MEDS ORDERED: ENOXAPARIN SOD 40 MG/0.4 ML SYRINGE SC SCH (10:00)
--- NOTE | 2024-06-06 11:01 | DVHPN2 ---
Progress Note Date Seen: Jun 06, 2024 Has the PT tested + for MRSA If YES, has PT been informed?: Yes Medical Necessity Reason Pt with a Central, PICC or Fol: No Subjective Patient reports: No new complaints Review of Systems: HEENT:Normal, CVS:Normal, RESPIRATORY:Normal, GI:Normal, :Normal, MSK:Normal, NEURO:Normal Objective vital signs Vital Sign Date Time Temp Pulse Resp B/P (MAP) Pulse Ox O2 Delivery O2 Flow Rate FiO2 06/06/24 05:00 97.8 72 18 142/51 (81) 93 97.8 06/05/24 21:50 Nasal Cannula* 2 28 Total Intake and Output 06/05/24 06/05/24 06/06/24 15:00 23:00 07:00 Intake Total 300 ml Balance 300 ml medications Current Medications Medications Dose Ordered Sig/Nereyda Route Start Time Stop Time Status Last Admin Dose Admin Nitroglycerin 0.4 mg Q5MINP PRN SL 06/04/24 10:15 Morphine Sulfate 2 mg Q30M PRN IV 06/04/24 10:15 Pantoprazole Sodium 40 mg DAILY IV 06/05/24 10:00 06/06/24 09:44 40 MG Acetaminophen 650 mg Q6HP PRN PO 06/04/24 10:30 Ondansetron HCl 4 mg Q4HPRN PRN IV 06/04/24 10:30 Diagnostic Test (Pha) 1 strip ACHS 06/04/24 11:30 06/06/24 07:02 1 STRIP Insulin Human Regular ACHS SC 06/04/24 11:30 06/05/24 22:25 2 UNITS Dextrose 50 ml UD PRN IV 06/04/24 10:30 Minoxidil 2.5 mg DAILY PO 06/05/24 10:00 06/05/24 10:40 2.5 MG Carvedilol 6.25 mg Q12HR PO 06/05/24 10:00 06/05/24 10:41 6.25 MG Clopidogrel Bisulfate 75 mg DAILY PO 06/05/24 10:00 06/06/24 09:44 75 MG Enoxaparin Sodium 40 mg DAILY SC 06/06/24 10:00 UNV Enoxaparin Sodium 30 mg DAILY SC 06/06/24 10:00 06/06/24 09:44 30 MG Examination: GENERAL:Normal, HEENT:Normal, NECK:Normal, LUNGS:Normal, CVS:Normal, ABDOMEN:Normal, MSK:Normal, SKIN:Normal, NEURO:Normal, :Normal laboratory and microbiology Laboratory Tests 06/05/24 06:00 Test 06/05/24 06:00 Range/Units Serum Glucose 80 74-106 mg/dL Microbiology Date/Time Source Procedure Growth Status 06/04/24 14:40 Stool Stool Culture - Preliminary Resulted 06/04/24 14:40 Stool Shiga Toxin I & II - Final Resulted 06/04/24 14:40 Stool Clostridium difficile Toxin Assay - Final Resulted Problem List/Assessment/Plan Problem List/Assessment/Plan #1 c diff colitis: po meds, gi eval #2 esrd: on dialysis #3 htn #4 dm: ssi #5 copd #6 s/p pacer #7 cad s/p stent #8 acute on chronic diastolic heart failure advance care planning- full code- time spent 19 mins Plan discussed with: Patient Date of Service: Jun 06, 2024 Billing Provider: MIRLANDE LOPEZ MD Common Visit Codes: [id number] INP/OBS CARE(HIGH) Secondary Visit Codes: [id number] CARE PLAN 30 MINUTES MIRLANDE LOPEZ MD Jun 06, 2024 11:01
[2024-06-06 13:00] VITALS: BP 157/55; PULSE 68; RESP 17; O2SAT 100
[2024-06-06] MEDS ORDERED: metroNIDAZOLE 500 MG TAB PO SCH (14:00)
--- NOTE | 2024-06-06 15:01 | DVHPN2 ---
Progress Note - Dictate Date Seen: Jun 06, 2024 Has the PT tested + for MRSA If YES, has PT been informed?: Yes Medical Necessity Reason Pt with a Central, PICC or Fol: No Subjective Today he has no complaints, she diarrhea is subsiding. vital signs Vital Sign Date Time Temp Pulse Resp B/P (MAP) Pulse Ox O2 Delivery O2 Flow Rate FiO2 06/06/24 13:00 68 17 157/55 (89) 100 06/06/24 09:00 97.9 97.9 06/05/24 21:50 Nasal Cannula* 2 28 Total Intake and Output 06/05/24 06/05/24 06/06/24 15:00 23:00 07:00 Intake Total 300 ml Balance 300 ml medications Current Medications Medications Dose Ordered Sig/Nereyda Route Start Time Stop Time Status Last Admin Dose Admin Nitroglycerin 0.4 mg Q5MINP PRN SL 06/04/24 10:15 Morphine Sulfate 2 mg Q30M PRN IV 06/04/24 10:15 Acetaminophen 650 mg Q6HP PRN PO 06/04/24 10:30 Ondansetron HCl 4 mg Q4HPRN PRN IV 06/04/24 10:30 Diagnostic Test (Pha) 1 strip ACHS 06/04/24 11:30 06/06/24 12:16 1 STRIP Insulin Human Regular ACHS SC 06/04/24 11:30 06/06/24 13:27 2 UNITS Dextrose 50 ml UD PRN IV 06/04/24 10:30 Minoxidil 2.5 mg DAILY PO 06/05/24 10:00 06/05/24 10:40 2.5 MG Carvedilol 6.25 mg Q12HR PO 06/05/24 10:00 06/05/24 10:41 6.25 MG Clopidogrel Bisulfate 75 mg DAILY PO 06/05/24 10:00 06/06/24 09:44 75 MG Enoxaparin Sodium 40 mg DAILY SC 06/06/24 10:00 UNV Enoxaparin Sodium 30 mg DAILY SC 06/06/24 10:00 06/06/24 09:44 30 MG Vancomycin HCl 250 mg QID PO 06/06/24 12:00 Metronidazole 500 mg Q8HR PO 06/06/24 14:00 Saccharomyces Boulardii 250 mg BID PO 06/06/24 22:00 objective HEENT: No evidence of JVD, no oral ulcers. Pulmonary: Lungs are clear on auscultation bilaterally Cardiovascular S1-S2, no S3 or S4 Abdomen: Bowel sounds positive, soft no rebound tenderness Skin: No rash Neurological: Alert, oriented, no focal weakness laboratory and microbiology Laboratory Tests 06/05/24 06:00 Test 06/05/24 06:00 Range/Units Serum Glucose 80 74-106 mg/dL Assessment/Plan Assessment ESKD on HD Diarrhea, C diff associated and Campylobacter Acute metabolic encephalopathy Lactic acidosis Hyponatremia COPD History of CHF Type 2 diabetes Hypertension Elevated troponin Mild pulmonary edema History of recent DVT of the right arm Plan/Recommendation Hemodialysis on TTS scheduled. Aim for 1-2 L fluid removal. Electrolytes WNL Infectious disease consultation Renally dose antibiotics. Lee for goal hemoglobin 10 to 11 grams/deciliter. Plan of care from Nephrology was discussed with the of the patient. Thank you very much for allowing us to participate in the care of this patient. Dietary Evaluation Review Comments: 1 When medically feasible, advance to Renal standard 2 GNa 3K, Low phos diet 2. MONITOR PO INTAKE to meet at least 75% of his needs Expected Outcomes/Goals: no weight loss Plan discussed with: Patient MARVIN PRAKASH MD Jun 06, 2024 15:01
--- NOTE | 2024-06-06 16:53 | DVHCONRES ---
Date Seen: Jun 06, 2024 Resident Creating Document: KEELY MARTELL RESIDENT Referring Physician Dr. Jacobs. Reason for Consultation C Diff colitis. History of Present Illness Mr. Honeycutt, a 78-year-old male with a history of CAD status post stent, HFpEF, previously needed spacer, HTN, COPD, GI bleed, anxiety, diabetes, end-stage renal disease on hemodialysis presented with diarrhea for three days and became altered and lethargic after dialysis. He recently had C. diff colitis treated with vancomycin, but the diarrhea returned. Currently, he is at his baseline, answering questions, unremarkable abdomen with continued loose stool while having stable vital signs and receiving in-hospital hemodialysis. Past Medical History CAD, HFpEF/CHF, HTN, COPD, GI bleed, anxiety, diabetes, end-stage renal disease on hemodialysis, C diff infection Past Surgical History Past medical history includes end-stage renal disease on hemodialysis, old history of CVA (2018), poor functional capacity, coronary artery disease and status post PCI (last stent in July 2023, ostial LAD), COPD, obstructive sleep apnea, diabetes mellitus, hypertension, anemia (history of repeated transfusions), CHF, SVT, pulmonary hypertension (considered type 2), history of pancytopenia (resolved later), history of DVT in upper extremity, repeated/significant GI bleedings and ex-smoker. Past medical history also includes DVT in the right upper extremity, history of septic shock, history of pneumonia, sick sinus syndrome and status post pacemaker (Micra/Medtronic) implantation. Family History: Family history: Cardiovascular disease G8 BROTHER Family history: Diabetes mellitus G8 MOTHER G8 FATHER G8 BROTHER Family history: Hypertension G8 MOTHER G8 FATHER G8 BROTHER Stroke G8 MOTHER Social History Noncontributory Allergies: Coded Allergies: Lisinopril (Verified Adverse Reaction, Severe, ANGIOEDEMA, 09/23/23) FACE,TONGUE, LIP SWELLING Home Meds Reported Medications Insulin Isophane & Reg (Human) (Humulin 70/30 (70-30) 100 Unit/ml) 1 Units/0.01 Ml Inj 06/05/24 Ipratropium Kiel (Ipratropium Kiel) 0.02 % Lolita, NEB BID 06/05/24 Patiromer Sorbitex Calcium (Veltassa) 8.4 Gm Pow, 1 PKT PO 06/05/24 Hydrocodone-Acetaminophen (Hydrocodone/Acetaminophen 10-325 mg) 1 Tab Tab, 1 TAB PO BID, TAB 06/05/24 Clonidine Hydrochloride (Clonidine Hcl) 0.1 Mg Tab, 0.1 MG PO PRN for SBP>160, TAB 06/05/24 Meclizine HCl (Meclizine 25) 25 Mg Tab, 25 MG PO PRN for DIZZINESS, TAB 06/05/24 Trazodone HCl (Trazodone Hydrochloride) 50 Mg Tab, 50 MG PO HS, TAB 06/05/24 Clopidogrel Bisulfate (Plavix) 75 Mg Tab, 75 MG PO DAILY, TAB 06/05/24 Pantoprazole Sodium Sesquihydr (Protonix) 40 Mg Tab, 40 MG PO DAILY, #30 TAB 10/28/23 Bupropion HCl (Bupropion Hydrochloride) 75 Mg Tab, 150 MG PO DAILY, TAB 10/28/23 Atorvastatin Calcium (ATORVASTATIN CALCIUM) 40 Mg Tab, 80 MG PO QPM, #90 TAB 3 Refills 10/28/23 Minoxidil (Loniten) 2.5 Mg Tb, 1 TAB PO BID 09/15/23 Hydralazine Hcl (Hydralazine Hcl) 50 Mg Tab, 1 TAB PO BID 09/15/23 Aspirin (Aspirin Low Dose) 81 Mg Chw, 1 TAB PO DAILY 09/15/23 Nitroglycerin (Nitrostat) 0.4 Mg Sub, 1 TAB SL Q5MIN PRN for CHEST PAIN for 30 Days, #25 09/15/23 Nifedipine (Nifedipine Er) 30 Mg Tab, 1 TAB PO BID 09/15/23 Duloxetine HCl (Duloxetine HCl) 30 Mg Cap, 1 CAP PO DAILY 09/15/23 Current Medications Current Medications Medications (Trade) Dose Ordered Sig/Nereyda Route PRN Reason Start Time Stop Time Status Last Admin Enoxaparin Sodium (Lovenox) 40 mg DAILY SC 06/06/24 10:00 UNV Enoxaparin Sodium (Lovenox) 30 mg DAILY SC 06/06/24 10:00 06/06/24 09:44 Vancomycin HCl (Vancomycin Hydrochloride) 250 mg QID PO 06/06/24 12:00 Metronidazole (Flagyl Tablet) 500 mg Q8HR PO 06/06/24 14:00 Saccharomyces Boulardii (Florastor) 250 mg BID PO 06/06/24 22:00 Review of Systems CONSTITUTIONAL: Fever, night sweats, weight loss, Lymphadenopathy, ecchymoses, Negative Fatigue, Lethargy: Positive DERMATOLOGIC: Rash, New/growing/changing skin lesions: Negative HEENT: Vision change, eye pain, Rhinorrhea, sinus pain, epistaxis, dysphagia, odynophagia, globus sensation, Change in hearing, tinnitus, vertigo, otalgia, Dental problems, oral ulcers or lesions: : Negative ENDOCRINE: Weight change, heat or cold intolerance, tremor, insomnia, neck pain or swelling, Polyuria, polydipsia, polyphagia, Abnormal hair growth, change in nails: Negative CARDIOVASCULAR: Chest pain, palpitations, syncope, Edema, cyanosis, claudicat ion, Orthopnea, paroxysmal nocturnal dyspnea: Negative PULMONARY: Shortness of breath, dyspnea with exertion, Cough, hemoptysis, wheezing, chest pain : Negative GI: Nausea, vomiting,melena, hematochezia, Change in appetite, abdominal pain, change in bowel habits or stools: Negative Watery diarrhea: Positive : Dysuria, frequency, urgency, Urinary incontinence, hematuria, foamy urine, nocturia, Change in libido, erectile dysfunction, Change in menses, dysmenorrhea, dyspaerunia, pelvic pain: : Negative MUSCULOSKELETAL: Joint swelling or pain, muscle pain, back pain: : Negative NEUROLOGIC: Headache, scotoma, Change in smell or taste, change in facial muscles, Muscle weakness, paresthesias, anesthesia, Ataxia, change in speech: Negative PSYCHIATRIC: Depression, anxiety, hallucinations, milton, suicidal/homicidal thoughts, Binging, purging: Negative Vital Signs Vital Signs Date Time Temp Pulse Resp B/P (MAP) Pulse Ox O2 Delivery O2 Flow Rate FiO2 06/06/24 13:00 68 17 157/55 (89) 100 06/06/24 09:00 97.9 97.9 06/05/24 21:50 Nasal Cannula* 2 28 Physical Exam GENERAL APPEARANCE: Well developed, well nourished, alert and cooperative, and appears to be in no acute distress. HEENT: wnl CARDIAC: Normal S1 and S2. No S3, S4 or murmurs. Rhythm is regular. There is no peripheral edema, cyanosis or pallor. Extremities are warm and well perfused. Capillary refill is less than 2 seconds. No carotid bruits. LUNGS: Clear to auscultation and percussion without rales, rhonchi, wheezing or diminished breath sounds. ABDOMEN: Positive bowel sounds. Soft, nondistended, nontender. No guarding or rebound. No masses. no guarding. MSK: WNL NEUROLOGICAL: CN II-XII intact. Strength and sensation symmetric and intact throughout. Reflexes 2+ throughout. Cerebellar testing normal. SKIN: Skin normal color, texture and turgor with no lesions or eruptions. PSYCHIATRIC: The mental examination revealed the patient was oriented to person, place, and time. The patient was able to demonstrate good judgement and reason, without hallucinations, abnormal affect or abnormal behaviors during the examination. Patient is not suicidal. Labs/Diagnostic Data Labs Test 06/06/24 11:57 06/05/24 06:00 06/04/24 14:40 06/04/24 10:45 Range/Units POC Glucose 141 H 70-106 mg/dl White Blood Count 9.8 4.4-10.8 10^3/uL Red Blood Count 4.49 L 4.5-5.90 10^6/uL Hemoglobin 13.1 L 13.5-17.5 g/dL Hematocrit 40.0 L 41.0-53.0 % Mean Corpuscular Volume 89.0 80.0-100.0 fL Mean Corpuscular Hemoglobin 29.2 28.0-32.0 pg Mean Corpuscular Hemoglobin Concent 32.8 32.0-36.0 g/dL Red Cell Distribution Width 20.2 H 11.8-14.3 % Platelet Count 192 140-450 10^3/uL Mean Platelet Volume 7.8 6.9-10.8 fL Neutrophils (%) (Auto) 68.6 37.0-80.0 % Lymphocytes (%) (Auto) 13.2 10.0-50.0 % Monocytes (%) (Auto) 15.9 H 0.0-12.0 % Eosinophils (%) (Auto) 2.0 0.0-7.0 % Basophils (%) (Auto) 0.3 0.0-2.0 % Neutrophils # (Auto) 6.8 1.6-8.6 10 ^3/uL Lymphocytes # (Auto) 1.3 0.4-5.4 10 ^3/uL Monocytes # (Auto) 1.6 H 0-1.3 10 ^3/uL Eosinophils # (Auto) 0.2 0-0.8 10 ^3/uL Basophils # (Auto) 0 0-0.2 10 ^3/uL Nucleated Red Blood Cells 0.1 % Sodium Level 131 L 136-145 mmol/L Potassium Level 4.0 3.5-5.1 mmol/L Chloride Level 95 L 98-107 mmol/L Carbon Dioxide Level 24 20-31 mmol/L Anion Gap 12 5-15 Blood Urea Nitrogen 54 #H 9-23 mg/dL Creatinine 8.08 H 0.700-1.30 mg/dL Glomerular Filtration Rate Calc 6 >90 mL/min BUN/Creatinine Ratio 6.7 L 10.0-20.0 Serum Glucose 80 74-106 mg/dL Calcium Level 9.2 8.7-10.4 mg/dL Magnesium Level 2.2 1.6-2.6 mg/dL Total Bilirubin 0.2 0.2-1.0 mg/dL Aspartate Amino Transferase (AST) 17 13-40 U/L Alanine Aminotransferase (ALT) < 9 7-40 U/L Alkaline Phosphatase 70 46-116 U/L Total Protein 6.8 5.7-8.2 g/dL Albumin 3.5 3.2-4.8 g/dL Stool Occult Blood Negative Negative Stool Occult Blood Sample #3 Negative Stool for White Cells Few Platelet Estimate Adequate Anisocytosis (manual) Slight Test 06/03/24 22:35 06/03/24 21:46 06/03/24 19:40 Range/Units Troponin I High Sensitivity 80 *H </=54 ng/L Lactic Acid Level 2.5 *H 0.4-2.0 mmol/L D-Dimer, Quantitative 2.19 H 0.0-0.49 mg/L FEU B-Type Natriuretic Peptide 632.96 0-100 pg/mL Microbiology Date/Time Source Procedure Growth Status 06/05/24 23:30 Nose MRSA Screen - Final Complete 06/04/24 14:40 Stool Stool Culture - Preliminary Resulted 06/04/24 14:40 Stool Shiga Toxin I & II - Final Resulted 06/04/24 14:40 Stool Clostridium difficile Toxin Assay - Final Resulted Assessment GI Assessment/impression: #GI bleed history, FOBT negative #recent history of C diff infection, toxicology neck C diff DNA detected. #Campylobacter jejuni infection/gastroenteritis: Campylobacter antigen detected. # hepatitis C antibody reactive #history of CAD status post stent #HFpEF #previously needed external pacer #essential HTN #COPD #chronic hypoxic respiratory failure #anxiety #diabetes mellitus type 2 #end-stage renal disease on hemodialysis #mild hyponatremia #Anemia of chronic disease Plan/Recommendation GI Plan: #Medications: Continue vancomycin p.o. 250 mg p.o. q.i.d., Florastor 250 mg p.o. b.i.d., can consider metronidazole IV q.8 hours. Can consider adding azithromycin 500 mg orally daily x 3 days to cover Campylobacter in this susceptible gentleman. #Labs: Stool culture to follow, daily CBC with diff. #Others: Usually C. jejuni gastroenteritis needs balance hydration along with correction of electrolytes. Maintain C diff isolation. Daily abdominal examination to rule out any surgical/concerning abdominal findings/finding consistent with toxic megacolon. #please scheduled follow up with GI as outpatient with Dr. María Moreno. Thank you so much for the opportunity to consult on your patient. GI team will follow the patient. In case of any questions or concerns please feel free to reach out. Case and action plan discussed with Dr. Maliha Moreno. Complex care planning needed total 49 minutes of detailed discussion. The patient and caregiver team agreed to the plan. Plan discussed with: Patient, Other (primary team. ) KEELY MARTELL RESIDENT Jun 06, 2024 16:53
[2024-06-06 17:00] VITALS: BP 138/69; PULSE 84; RESP 16; TEMP 97.9; O2SAT 97
[2024-06-06] MEDS: VANCOMYCIN HCL 250 MG CAP PO SCH (17:51)
[2024-06-06] MEDS: metroNIDAZOLE 500MG/100ML 100 ML IV ONE (17:57)
[2024-06-06] MEDS ORDERED: DONE5TAB80 PO (18:00)
[2024-06-06 21:00] VITALS: BP 148/70; PULSE 64; RESP 18; TEMP 98.7; O2SAT 95
[2024-06-06] MEDS: FLORASTOR (S. BOULARDII) 250 MG CAP PO SCH (21:46)
[2024-06-06] MEDS: metroNIDAZOLE 500MG/100ML 100 ML IV SCH (21:46)
[2024-06-07] VITALS (7 sets, daily range): BP systolic 126–152; BP diastolic 52–64; PULSE 60–74; RESP 15–18; TEMP 98–98.7; O2SAT 90–100
[2024-06-07 07:11] LABS: Basophils # (auto) 0 10 ^3/uL (0-0.2); Basophils % (auto) 0.2 % (0.0-2.0); Eosinophils # (auto) 0.2 10 ^3/uL (0-0.8); Eosinophils % (auto) 2.7 % (0.0-7.0); Hematocrit 37.9 % (41.0-53.0); Hemoglobin 12.4 g/dL (13.5-17.5); Lymphocytes # (auto) 0.7 10 ^3/uL (0.4-5.4); Lymphocytes % (auto) 11.3 % (10.0-50.0); Mean Corpuscular Hemoglobin 28.8 pg (28.0-32.0); Mean Corpuscular Hgb Conc. 32.6 g/dL (32.0-36.0); Mean Corpuscular Volume 88.5 fL (80.0-100.0); Monocytes % (auto) 16.5 % (0.0-12.0); Neutrophils # (auto) 4.2 10 ^3/uL (1.6-8.6); Neutrophils % (auto) 69.3 % (37.0-80.0); Nucleated Red Blood Cells % 0.1 %; Platelet Count (auto) 183 10^3/uL (140-450); Red Blood Cells 4.29 10^6/uL (4.5-5.90)
[2024-06-07 07:15] LABS: Red Cell Distribution Width 20.4 % (11.8-14.3)
[2024-06-07 07:16] LABS: Chloride 100 mmol/L (98-107)
[2024-06-07 07:17] LABS: Anion Gap 9 (5-15); Calcium 8.7 mg/dL (8.7-10.4); Carbon Dioxide 25 mmol/L (20-31)
[2024-06-07 07:22] LABS: BUN/Creatinine Ratio 5.1 (10.0-20.0); Glucose 102 mg/dL (74-106); Potassium 3.4 mmol/L (3.5-5.1); Sodium 134 mmol/L (136-145)
[2024-06-07 07:23] LABS: Blood Urea Nitrogen 35 mg/dL (9-23)
--- NOTE | 2024-06-07 07:40 | DVHPN2 ---
Progress Note - Dictate Date Seen: Jun 07, 2024 Has the PT tested + for MRSA If YES, has PT been informed?: Yes Medical Necessity Reason Pt with a Central, PICC or Fol: No vital signs Vital Sign Date Time Temp Pulse Resp B/P (MAP) Pulse Ox O2 Delivery O2 Flow Rate FiO2 06/07/24 05:00 98.7 67 18 152/64 (93) 95 98.7 06/06/24 20:00 Nasal Cannula* 2 28 Total Intake and Output 06/06/24 06/06/24 06/07/24 15:00 23:00 07:00 Intake Total 400 ml 550 ml 850 ml Output Total 3 ml Balance 400 ml 550 ml 847 ml medications Current Medications Medications Dose Ordered Sig/Nereyda Route Start Time Stop Time Status Last Admin Dose Admin Nitroglycerin 0.4 mg Q5MINP PRN SL 06/04/24 10:15 Morphine Sulfate 2 mg Q30M PRN IV 06/04/24 10:15 Acetaminophen 650 mg Q6HP PRN PO 06/04/24 10:30 Ondansetron HCl 4 mg Q4HPRN PRN IV 06/04/24 10:30 Diagnostic Test (Pha) 1 strip ACHS 06/04/24 11:30 06/07/24 06:30 1 STRIP Insulin Human Regular ACHS SC 06/04/24 11:30 06/06/24 13:27 2 UNITS Dextrose 50 ml UD PRN IV 06/04/24 10:30 Minoxidil 2.5 mg DAILY PO 06/05/24 10:00 06/06/24 17:58 2.5 MG Carvedilol 6.25 mg Q12HR PO 06/05/24 10:00 06/06/24 22:00 6.25 MG Clopidogrel Bisulfate 75 mg DAILY PO 06/05/24 10:00 06/06/24 09:44 75 MG Enoxaparin Sodium 40 mg DAILY SC 06/06/24 10:00 UNV Enoxaparin Sodium 30 mg DAILY SC 06/06/24 10:00 06/06/24 09:44 30 MG Vancomycin HCl 250 mg QID PO 06/06/24 12:00 06/07/24 05:14 250 MG Saccharomyces Boulardii 250 mg BID PO 06/06/24 22:00 06/06/24 21:46 250 MG Metronidazole 100 ml @ 100 mls/hr Q8HR IV 06/06/24 22:00 06/07/24 05:31 100 MLS/HR laboratory and microbiology Laboratory Tests 06/07/24 06:18 Test 06/07/24 06:18 Range/Units Serum Glucose 102 74-106 mg/dL Assessment/Plan Patient is a 78-year-old gentleman who presented the hospital with altered level of consciousness. Reportedly, the patient woke up altered and confused and the family decided to bring him to the hospital. Since admission, there was a question about bradycardia (if pacemaker is working correctly?). It is of note that the patient did have diarrhea for few days prior to presentation and has had recent C diff colitis for which has been treated. Cardiology is involved for cardiac as base of care. Patient is known to our practice from before. He does have history of coronary artery disease and has had stent last year. Serial troponin has only been minimally elevated and flat. Patient does have history of pacemaker (micro/Medtronic) implantation. Has had DVT before and was treated for sepsis in prior admissions. He was previously kept on aspirin/Eliquis (has history of anemia and blood transfusions). Later, as he could not tolerate anticoagulation, he was kept on Plavix daily. Does have history of end-stage renal disease and is on hemodialysis. Frail gentleman, pale and wet mucosa. No carotid bruit, no goiter. Lungs: Scattered rhonchi in the lungs, cardiac: Regular, systolic murmur in the apex is heard. Abdomen is soft and distended. Bowel sound is positive. There is no gross mass. Extremities reveal 1+ edema bilaterally. Dorsalis pedis is 2+ bilateral. Past medical history includes end-stage renal disease on hemodialysis, old history of CVA (2018), poor functional capacity, coronary artery disease and status post PCI (last stent in July 2023, ostial LAD), COPD, obstructive sleep apnea, diabetes mellitus, hypertension, anemia (history of repeated transfusions), CHF, SVT, pulmonary hypertension (considered type 2), history of pancytopenia (resolved later), history of DVT in upper extremity, repeated/significant GI bleedings and ex-smoker. Past medical history also includes DVT in the right upper extremity, history of septic shock, history of pneumonia, sick sinus syndrome and status post pacemaker (Micra/Medtronic) implantation. Echocardiogram of January 2024 had revealed: Ejection fraction of 40-45%, anterior/anteroseptal hypokinesia, biatrial enlargement, right ventricular systolic pressure 45 mm Hg. Echocardiogram October 28, 2023 had revealed mild concentric left ventricular hypertrophy, LVEF of 52% with mild diffuse hypokinesis, dilated RV/LA/RA, [id number] aortic insufficiency, mild MR, moderate TR and right ventricular systolic pressure of 60 mm Hg Echocardiogram of November 08, 2023 (performed in [facility]) had reported: LVEF of 50%, [id number] TR, mild aortic insufficiency and right ventricular systolic pressure of 49 mm Hg Echocardiogram of September 15, 2023 (performed and [facility]) revealed ejection fraction of 45-50% Echocardiogram of March 22, 2023 (performed in the office) revealed ejection fraction of 65-70%, mild concentric left ventricular hypertrophy, moderate biatrial enlargement, [id number] MR/TR, mild AI/PI and right ventricular systolic pressure of 66 mm Hg. Left heart catheterization on August 04, 2023 revealed: 1 vessel coronary artery disease and status post PCI (drug-eluting stent deployment of ostial LAD, LVEF of 60% with increased LVEDP, patent stent in mid LAD, type 2 pulmonary hypertension. Creatinine: 5.13 - 6.53 - 8.08 - 6.92 Potassium: 4.3 - 3.9 - 4.0 - 3.4 Sodium: 133 - 132 - 131 - 134 Lactic acid: 2.2 - 2.5 D-dimer: 2.19 Troponin (high sensitive): 76 - 78 - 80 BNP: 632.96 Stool is positive for CDT toxin Chest x-ray reviewed: IMPRESSION: 1. Probable mild interstitial pulmonary edema. CT of the head revealed: IMPRESSION: 1. No acute intracranial abnormality. CT angiography showed lungs are revealed: 1. Evaluation of the pulmonary arteries is limited secondary to poor contrast bolus timing. There is no obvious pulmonary arterial filling defect to suggest pulmonary embolism. 2. Scarring versus atelectasis in the bilateral lower lobes. Venous duplex of lower extremities revealed: IMPRESSION: 1. There is no sonographic evidence for DVT in the lower extremities. EKG reveals sinus rhythm with occasions of paced ventricular rhythm Repeat EKG questions PAT Tele reveals sinus rhythm with paced ventricular Echocardiogram reported: Left ventricle: Mild concentric left ventricular hypertrophy was seen. LVEF was 45-50%. Right ventricle was normal sized with normal systolic function. Both atria were mildly dilated. Aortic valve: Aortic valve was trileaflet. There was mild aortic insufficiency. There was no aortic stenosis. There was trivial mitral regurgitation. There was mild tricuspid regurgitation. Pulmonary valve was not well visualized. Right ventricular systolic pressure was assessed around 48 mm Hg. There was no pericardial effusion. IVC was not well visualized. Pacemaker (Medtronic/Micra) interrogation: Battery voltage: 3.03 volts; Remaining longevity: More than eight years; Electrode impedance: 820 Ohms; Capture threshold: 0.38 volts @ 0.24 milliseconds; Programmed amplitude/pulse width: 0.88 volts/0.24 milliseconds; AM-ARTISAN PLASTERER: 1.4%; ARTISAN PLASTERER only: 4.2%; VDD: 55/105; Normal functioning pacemaker Patient is a 78-year-old gentleman who presented with shortness of breath. There was question if patient has significant bradycardia. It is of note the patient does have pacemaker (micro/Medtronic). Patient's pacemaker was interrogated last in May 18, 2024 in the office and was working perfectly at that time. Reinterrogation of the pacemaker can be justified. Patient has history of DVT for which was on Eliquis previously but could not tolerate it (repeated GI bleeding). Patient does have history of coronary artery disease and has had stents in the LAD. He has been kept on Plavix as outpatient at this point. It is also of note that the patient does have pulmonary hypertension which could have contributed to the clinical picture and abnormal troponin. His compliance on medication it is questionable. Pacemaker interrogation revealed normal functioning pacemaker. Acute respiratory failure Acute on chronic heart failure (possibly diastolic) Coronary artery disease, status post PCI Abnormal troponin, considered demand physiology at this point Pulmonary hypertension, type 2 End-stage renal disease on hemodialysis History of DVT, history of Abnormal D-dimer, pulmonary emboli was ruled out by CT angiography of the lungs Internal Jugular and subclavian DVT, hold s/p GI bleeding, old s/p arrest (post GI bleeding), old Acute PE was ruled out CDT colitis Cardiac suggestion for management: Manage in tele Follow-up electrolytes and kidney function tests and correct abnormalities. Continuation of beta-louie (carvedilol at 6.25 mg twice daily) suggested Hemodialysis as per Nephrology Evaluation and management of CDT colitis as per primary team/ID Further evaluation and management depends on the above and clinical course A total of 55 minutes was spent reviewing the patient record, examining the patient, making a diagnostic and therapeutic plan, discussing this plan with medical personnel, following up on diagnostic studies and following the patient for clinical stability excluding any and all procedures. At least 50% of this time was spent in direct, [id number] contact. Thank you for allowing me to participate in this patient's care. Further recommendations will depend on patient's clinical course. Please do not hesitate to contact me if you have any questions or concerns. This medical document was created using electronic medical record system with [employer] computerized dictation system. Although this document has been carefully reviewed, there may still be some phonetic and typographical errors. These areas are purely typographical due to the imperfection of the software programs, and do not reflect any compromise in the patient's medical care. Dietary Evaluation Review Comments: 1 When medically feasible, advance to Renal standard 2 GNa 3K, Low phos diet 2. MONITOR PO INTAKE to meet at least 75% of his needs Expected Outcomes/Goals: no weight loss Plan discussed with: Other (nurse) NICOLE KERNS MD Jun 07, 2024 07:40
--- NOTE | 2024-06-07 08:20 | DVHNC2 ---
Procedure - Pacemaker (Medtronic/Micra) interrogation: Battery voltage: 3.03 volts Remaining longevity: More than eight years Electrode impedance: 820 Ohms Capture threshold: 0.38 volts @ 0.24 milliseconds Programmed amplitude/pulse width: 0.88 volts/0.24 milliseconds AM-ELECTRONIC GLUER: 1.4% ELECTRONIC GLUER only: 4.2% VDD: 55/105 Normal functioning pacemaker NICOLE KERNS MD Jun 07, 2024 08:19
--- NOTE | 2024-06-07 09:38 | DVHPNRES ---
Progress Note Date Seen: Jun 07, 2024 Resident Creating Document: KEELY MARTELL RESIDENT Has the PT tested + for MRSA If YES, has PT been informed?: Yes Medical Necessity Reason Pt with a Central, PICC or Fol: No Subjective Patient reports: No new complaints Objective vital signs Vital Sign Date Time Temp Pulse Resp B/P (MAP) Pulse Ox O2 Delivery O2 Flow Rate FiO2 06/07/24 05:00 98.7 67 18 152/64 (93) 95 98.7 06/06/24 20:00 Nasal Cannula* 2 28 Total Intake and Output 06/06/24 06/06/24 06/07/24 15:00 23:00 07:00 Intake Total 400 ml 550 ml 850 ml Output Total 3 ml Balance 400 ml 550 ml 847 ml medications Current Medications Medications Dose Ordered Sig/Nereyda Route Start Time Stop Time Status Last Admin Dose Admin Nitroglycerin 0.4 mg Q5MINP PRN SL 06/04/24 10:15 Morphine Sulfate 2 mg Q30M PRN IV 06/04/24 10:15 Acetaminophen 650 mg Q6HP PRN PO 06/04/24 10:30 Ondansetron HCl 4 mg Q4HPRN PRN IV 06/04/24 10:30 Diagnostic Test (Pha) 1 strip ACHS 06/04/24 11:30 06/07/24 06:30 1 STRIP Insulin Human Regular ACHS SC 06/04/24 11:30 06/06/24 13:27 2 UNITS Dextrose 50 ml UD PRN IV 06/04/24 10:30 Minoxidil 2.5 mg DAILY PO 06/05/24 10:00 06/06/24 17:58 2.5 MG Carvedilol 6.25 mg Q12HR PO 06/05/24 10:00 06/06/24 22:00 6.25 MG Clopidogrel Bisulfate 75 mg DAILY PO 06/05/24 10:00 06/06/24 09:44 75 MG Enoxaparin Sodium 40 mg DAILY SC 06/06/24 10:00 UNV Enoxaparin Sodium 30 mg DAILY SC 06/06/24 10:00 06/06/24 09:44 30 MG Vancomycin HCl 250 mg QID PO 06/06/24 12:00 06/07/24 05:14 250 MG Saccharomyces Boulardii 250 mg BID PO 06/06/24 22:00 06/06/24 21:46 250 MG Metronidazole 100 ml @ 100 mls/hr Q8HR IV 06/06/24 22:00 06/07/24 05:31 100 MLS/HR Cholestyramine Resin 4 gm DAILY@11 GT 06/07/24 11:00 Examination GENERAL APPEARANCE: Well developed, well nourished, alert and cooperative, and appears to be in no acute distress. HEENT: wnl CARDIAC: Normal S1 and S2. No S3, S4 or murmurs. Rhythm is regular. There is no peripheral edema, cyanosis or pallor. Extremities are warm and well perfused. Capillary refill is less than 2 seconds. No carotid bruits. LUNGS: Clear to auscultation and percussion without rales, rhonchi, wheezing or diminished breath sounds. ABDOMEN: Positive bowel sounds. Soft, nondistended, nontender. No guarding or rebound. No masses. no guarding. MSK: WNL NEUROLOGICAL: CN II-XII intact. Strength and sensation symmetric and intact throughout. Reflexes 2+ throughout. Cerebellar testing normal. SKIN: Skin normal color, texture and turgor with no lesions or eruptions. PSYCHIATRIC: The mental examination revealed the patient was oriented to person, place, and time. The patient was able to demonstrate good judgement and reason, without hallucinations, abnormal affect or abnormal behaviors during the examination. Patient is not suicidal. laboratory and microbiology Laboratory Tests 06/07/24 06:18 Test 06/07/24 06:18 Range/Units Serum Glucose 102 74-106 mg/dL Microbiology Date/Time Source Procedure Growth Status 06/05/24 23:30 Nose MRSA Screen - Final Complete 06/04/24 14:40 Stool Stool Culture - Preliminary Resulted 06/04/24 14:40 Stool Shiga Toxin I & II - Final Resulted 06/04/24 14:40 Stool Clostridium difficile Toxin Assay - Final Resulted Labs and/or images reviewed: Labs reviewed by me, Image(s) reviewed by me Problem List/Assessment/Plan Problem List/Assessment/Plan Reasons for consultation: C Diff colitis. Hospitalization Summary: Mr. Honeycutt, a 78-year-old male with a history of CAD status post stent, HFpEF, previously needed spacer, HTN, COPD, GI bleed, anxiety, diabetes, end-stage renal disease on hemodialysis presented with diarrhea for three days and became altered and lethargic after dialysis. He recently had C. diff colitis treated with vancomycin, but the diarrhea returned. Currently, he is at his baseline, answering questions, unremarkable abdomen with continued loose stool while having stable vital signs and receiving in-hospital hemodialysis. Continued watery diarrhea 9 times over past 24 hours. Pulmonology due at lunchtime sharp getting cervix tab 0) home IV GI Assessment: #GI bleed history, FOBT negative #recent history of C diff infection, toxicology neck C diff DNA detected. #Campylobacter jejuni infection/gastroenteritis: Campylobacter antigen detected. #hepatitis C antibody reactive #continued watery diarrhea 9 times over past 24 hours #history of CAD status post stent #HFpEF #micra device in situ #essential HTN #COPD #chronic hypoxic respiratory failure #anxiety #diabetes mellitus type 2 #end-stage renal disease on hemodialysis #mild hyponatremia #Anemia of chronic disease GI Plan: #Medications: Continue vancomycin p.o. 250 mg p.o. q.i.d., Florastor 250 mg p.o. b.i.d., continue metronidazole IV q.8 hours. Added Cholestyramine 4mg daily. #Labs: Stool culture to follow, daily CBC with diff. #Others: Usually C. jejuni gastroenteritis needs balance hydration along with correction of electrolytes. Maintain C diff isolation. Daily abdominal examination to rule out any surgical/concerning abdominal findings/finding consistent with toxic megacolon. #Diet: started mechanical soft diet. #please scheduled follow up with GI as outpatient with Dr. María Moreno. Thank you so much for the opportunity to consult on your patient. GI team will follow the patient. In case of any questions or concerns please feel free to reach out. Case and action plan discussed with Dr. Maliha Moreno. Complex care planning needed total 49 minutes of detailed discussion. The patient and caregiver team agreed to the plan. Plan discussed with: Patient, Other (RN, primary team. ) My Orders My Orders Orders - KEELY MARTELL RESIDENT Procedure Category Date Status Time Metronidazole PHA 06/06/24 In Process 500mg/100ml (Flagyl 22:00 Dietary Evaluation Review Comments: 1 When medically feasible, advance to Renal standard 2 GNa 3K, Low phos diet 2. MONITOR PO INTAKE to meet at least 75% of his needs Expected Outcomes/Goals: no weight loss KEELY MARTELL RESIDENT Jun 07, 2024 09:38
--- NOTE | 2024-06-07 09:45 | DVHPN2 ---
Subjective He is still having diarrhea Changes from previous H/P or p: Changes Objective Vitals Vital Signs Date Time Temp Pulse Resp B/P (MAP) Pulse Ox O2 Delivery O2 Flow Rate FiO2 06/07/24 05:00 98.7 67 18 152/64 (93) 95 98.7 06/06/24 20:00 Nasal Cannula* 2 28 Intake/Output Intake and Output 06/07/24 07:00 Intake Total 1800 ml Output Total 3 ml Balance 1797 ml Intake Oral 1600 ml IV Total 200 ml Output Urine Total 3 ml # Bowel Movements 9 General Appearance: Alert, Oriented X3, Cooperative, No acute distress Lungs: Clear to auscultation, Normal air movement Cardiovascular: Regular rate, Normal S1, Normal S2 Abdomen: Normal bowel sounds, Soft, No tenderness Extremities: No edema Medications Current Medications Medications Dose Ordered Sig/Nereyda Route Start Time Stop Time Status Last Admin Dose Admin Nitroglycerin 0.4 mg Q5MINP PRN SL 06/04/24 10:15 Morphine Sulfate 2 mg Q30M PRN IV 06/04/24 10:15 Acetaminophen 650 mg Q6HP PRN PO 06/04/24 10:30 Ondansetron HCl 4 mg Q4HPRN PRN IV 06/04/24 10:30 Diagnostic Test (Pha) 1 strip ACHS 06/04/24 11:30 06/07/24 06:30 1 STRIP Insulin Human Regular ACHS SC 06/04/24 11:30 06/06/24 13:27 2 UNITS Dextrose 50 ml UD PRN IV 06/04/24 10:30 Minoxidil 2.5 mg DAILY PO 06/05/24 10:00 06/06/24 17:58 2.5 MG Carvedilol 6.25 mg Q12HR PO 06/05/24 10:00 06/06/24 22:00 6.25 MG Clopidogrel Bisulfate 75 mg DAILY PO 06/05/24 10:00 06/06/24 09:44 75 MG Enoxaparin Sodium 40 mg DAILY SC 06/06/24 10:00 UNV Vancomycin HCl 250 mg QID PO 06/06/24 12:00 06/07/24 05:14 250 MG Saccharomyces Boulardii 250 mg BID PO 06/06/24 22:00 06/06/24 21:46 250 MG Metronidazole 100 ml @ 100 mls/hr Q8HR IV 06/06/24 22:00 06/07/24 05:31 100 MLS/HR Cholestyramine Resin 4 gm DAILY@11 GT 06/07/24 11:00 Laboratory Results Laboratory Tests 06/07/24 06:18 Chemistry Test 06/07/24 06:18 Calcium Level 8.7 mg/dL (8.7-10.4) Microbiology Microbiology Date/Time Source Procedure Growth Status 06/05/24 23:30 Nose MRSA Screen - Final Complete 06/04/24 14:40 Stool Stool Culture - Preliminary Resulted 06/04/24 14:40 Stool Shiga Toxin I & II - Final Resulted 06/04/24 14:40 Stool Clostridium difficile Toxin Assay - Final Resulted Assessment/Plan Assessment/Plan C diff colitis with Recent C diff colitis Acute metabolic encephalopathy Sick sinus syndrome status post pacemaker End-stage renal disease on hemodialysis COPD on home O2 Acute on chronic hypoxic respiratory failure Chronic respiratory failure on home O2 History of CHF Type 2 diabetes Hypertension Possible underlying dementia Chronic anemia of chronic kidney disease Elevated troponin Mild pulmonary edema History of recent DVT of the right arm History of mastoiditis Plan 06/07/2024: Continue p.o. vancomycin and IV Flagyl Cholestyramine Florastor Soft diet We will start physical therapy Plan discussed with: Patient, Other Date of Service: Jun 07, 2024 Billing Provider: PETER LAMAR MD Common Visit Codes: NOT BILLABLE PETER LAMAR MD Jun 07, 2024 09:45
[2024-06-07] MEDS: CHOLESTYRAMINE 4 GM POWDER GT SCH (11:37)
--- NOTE | 2024-06-07 15:56 | DVHPN2 ---
Progress Note - Dictate Date Seen: Jun 07, 2024 Has the PT tested + for MRSA If YES, has PT been informed?: Yes Medical Necessity Reason Pt with a Central, PICC or Fol: No Subjective Today no complaints vital signs Vital Sign Date Time Temp Pulse Resp B/P (MAP) Pulse Ox O2 Delivery O2 Flow Rate FiO2 06/07/24 13:00 98.2 67 17 143/58 (86) 98 98.2 06/06/24 20:00 Nasal Cannula* 2 28 Total Intake and Output 06/06/24 06/06/24 06/07/24 15:00 23:00 07:00 Intake Total 400 ml 550 ml 850 ml Output Total 3 ml Balance 400 ml 550 ml 847 ml medications Current Medications Medications Dose Ordered Sig/Nereyda Route Start Time Stop Time Status Last Admin Dose Admin Nitroglycerin 0.4 mg Q5MINP PRN SL 06/04/24 10:15 Morphine Sulfate 2 mg Q30M PRN IV 06/04/24 10:15 Acetaminophen 650 mg Q6HP PRN PO 06/04/24 10:30 Ondansetron HCl 4 mg Q4HPRN PRN IV 06/04/24 10:30 Diagnostic Test (Pha) 1 strip ACHS 06/04/24 11:30 06/07/24 12:30 1 STRIP Insulin Human Regular ACHS SC 06/04/24 11:30 06/07/24 12:31 2 UNITS Dextrose 50 ml UD PRN IV 06/04/24 10:30 Minoxidil 2.5 mg DAILY PO 06/05/24 10:00 06/07/24 12:39 2.5 MG Carvedilol 6.25 mg Q12HR PO 06/05/24 10:00 06/07/24 11:38 6.25 MG Clopidogrel Bisulfate 75 mg DAILY PO 06/05/24 10:00 06/07/24 11:37 75 MG Enoxaparin Sodium 40 mg DAILY SC 06/06/24 10:00 UNV Vancomycin HCl 250 mg QID PO 06/06/24 12:00 06/07/24 12:03 250 MG Saccharomyces Boulardii 250 mg BID PO 06/06/24 22:00 06/07/24 11:37 250 MG Metronidazole 100 ml @ 100 mls/hr Q8HR IV 06/06/24 22:00 06/07/24 13:59 100 MLS/HR Cholestyramine Resin 4 gm DAILY@11 GT 06/07/24 11:00 06/07/24 11:37 4 GM objective HEENT: No evidence of JVD, no oral ulcers. Pulmonary: Lungs are clear on auscultation bilaterally Cardiovascular S1-S2, no S3 or S4 Abdomen: Bowel sounds positive, soft no rebound tenderness Skin: No rash Neurological: Alert, oriented, no focal weakness laboratory and microbiology Laboratory Tests 06/07/24 06:18 Test 06/07/24 06:18 Range/Units Serum Glucose 102 74-106 mg/dL Assessment/Plan Assessment ESKD on HD Diarrhea, C diff associated and Campylobacter Acute metabolic encephalopathy Hyponatremia COPD History of CHF Type 2 diabetes Hypertension Elevated troponin History of recent DVT of the right arm Plan/Recommendation Hemodialysis on TTS scheduled. Electrolytes WNL Infectious disease consultation Renally dose antibiotics. Lee for goal hemoglobin 10 to 11 grams/deciliter. Plan of care from Nephrology was discussed with the of the patient. Okay to discharge from Nephrology perspective Thank you very much for allowing us to participate in the care of this patient. Dietary Evaluation Review Comments: 1 When medically feasible, advance to Renal standard 2 GNa 3K, Low phos diet 2. MONITOR PO INTAKE to meet at least 75% of his needs Expected Outcomes/Goals: no weight loss Plan discussed with: Patient MARVIN PRAKASH MD Jun 07, 2024 15:56
--- NOTE | 2024-06-07 22:24 | DVHPN2 ---
Progress Note - Dictate Date Seen: Jun 07, 2024 Has the PT tested + for MRSA If YES, has PT been informed?: Yes Medical Necessity Reason Pt with a Central, PICC or Fol: No Subjective Patient seen and examined at bedside. Remains on supplemental oxygen Overnight events reviewed. vital signs Vital Sign Date Time Temp Pulse Resp B/P (MAP) Pulse Ox O2 Delivery O2 Flow Rate FiO2 06/07/24 22:15 60 152/52 06/07/24 21:00 98.0 15 100 98.0 06/07/24 20:00 Nasal Cannula* 2 28 Total Intake and Output 06/06/24 06/06/24 06/07/24 15:00 23:00 07:00 Intake Total 400 ml 550 ml 850 ml Output Total 3 ml Balance 400 ml 550 ml 847 ml medications Current Medications Medications Dose Ordered Sig/Nereyda Route Start Time Stop Time Status Last Admin Dose Admin Nitroglycerin 0.4 mg Q5MINP PRN SL 06/04/24 10:15 Morphine Sulfate 2 mg Q30M PRN IV 06/04/24 10:15 Acetaminophen 650 mg Q6HP PRN PO 06/04/24 10:30 Ondansetron HCl 4 mg Q4HPRN PRN IV 06/04/24 10:30 Diagnostic Test (Pha) 1 strip ACHS 06/04/24 11:30 06/07/24 21:36 1 STRIP Insulin Human Regular ACHS SC 06/04/24 11:30 06/07/24 18:36 2 UNITS Dextrose 50 ml UD PRN IV 06/04/24 10:30 Minoxidil 2.5 mg DAILY PO 06/05/24 10:00 06/07/24 12:39 2.5 MG Carvedilol 6.25 mg Q12HR PO 06/05/24 10:00 06/07/24 22:15 6.25 MG Clopidogrel Bisulfate 75 mg DAILY PO 06/05/24 10:00 06/07/24 11:37 75 MG Enoxaparin Sodium 40 mg DAILY SC 06/06/24 10:00 UNV Vancomycin HCl 250 mg QID PO 06/06/24 12:00 06/07/24 22:15 250 MG Saccharomyces Boulardii 250 mg BID PO 06/06/24 22:00 06/07/24 22:15 250 MG Metronidazole 100 ml @ 100 mls/hr Q8HR IV 1/14/25 22:00 06/07/24 22:15 100 MLS/HR Cholestyramine Resin 4 gm DAILY@11 GT 06/07/24 11:00 06/07/24 11:37 4 GM objective Gen.: Patient lying in bed in no apparent distress. On supplemental oxygen. Head: Normocephalic, atraumatic. Eyes: EOMI/PERRLA. Ears: Normal hearing. Normal anatomy. Neck/trachea: Trachea midline, supple. Nose: Normal external anatomy. Mouth: Moist mucous membranes. Chest: Decreased air entry bilaterally. No wheezing or rhonchi. Cardiovascular: Positive S1, positive S2. Regular rate and rhythm. Abdomen: Positive bowel sounds in all 4 quadrants. Soft, non-tender, non- distended. : Deferred. Rectal: Deferred. Skin: Warm, dry. Intact. Extremities: 2+ radial pulses bilaterally. No lower extremity edema. Neuro: Awake, alert, oriented x3. No gross motor or sensory deficits. Cranial nerves II through XII intact. Gait not assessed. laboratory and microbiology Laboratory Tests 06/07/24 06:18 Test 06/07/24 06:18 Range/Units Serum Glucose 102 74-106 mg/dL Assessment/Plan Impression: Acute metabolic encephalopathy COPD Atelectasis Elevated troponin Chronic hypoxic respiratory failure Dependence on supplemental oxygen Clostridium difficile End-stage renal disease, on hemodialysis Elevated d-dimer, ruled out PE and DVT Events: Remains on supplemental oxygen, 2 LPM NC Taper O2 as tolerated Continue bronchodilators Continue antibiotics Incentive spirometry HD per Nephrology Diet tolerated F/u Cardiology recommendations Labs and imaging reviewed. Rest of plan as noted below. Plan: Supplemental oxygen Titrate to keep O2 sats above 92%. Taper O2 as tolerated. Ultrasound venous Doppler of bilateral lower extremities reveals no e/o DVT. CTA of chest showed no PE. Notable for atelectasis in bilateral lower lobes. Continue bronchodilators PRN Incentive spirometry for atelectasis Accu-Cheks, ISS. Monitor renal function. Monitor electrolytes. Supplement as necessary. Monitor ins and outs. GI prophylaxis - Protonix DVT prophylaxis. Prognosis: Poor given patient's multiple co-morbidities. Rest of plan per hospitalist and other consultants. Thank you, Dr. Stinson, for allowing me to participate in this patient's care. Further recommendations will depend on the patient's clinical course. Please do not hesitate to contact me if you have any questions or concerns. This medical document was created using an electronic medical record system with [employer]now [employer] dictation system. Although these documentations are being carefully reviewed, there may still be some phonetic and typographical changes. The errors are purely typographical, due to imperfection on the software program, and do not reflect any compromise in the patient's medical care. Dietary Evaluation Review Comments: 1 When medically feasible, advance to Renal standard 2 GNa 3K, Low phos diet 2. MONITOR PO INTAKE to meet at least 75% of his needs Expected Outcomes/Goals: no weight loss Plan discussed with: Patient, Other (HANS Irizarry) JUAN SALDAÑA MD Jun 07, 2024 22:24
[2024-06-08] VITALS (7 sets, daily range): BP systolic 116–152; BP diastolic 62–76; PULSE 64–94; RESP 16–20; TEMP 96.6–98.4; O2SAT 91–99
--- NOTE | 2024-06-08 05:42 | DVHPN2 ---
Progress Note - Dictate Date Seen: Jun 06, 2024 Has the PT tested + for MRSA If YES, has PT been informed?: Yes Medical Necessity Reason Pt with a Central, PICC or Fol: No Subjective Patient seen and examined at bedside. Remains on supplemental oxygen Overnight events reviewed. vital signs Vital Sign Date Time Temp Pulse Resp B/P (MAP) Pulse Ox O2 Delivery O2 Flow Rate FiO2 06/08/24 05:00 98.1 94 20 148/64 (92) 94 98.1 06/07/24 20:00 Nasal Cannula* 2 28 Total Intake and Output 06/07/24 06/07/24 06/08/24 14:59 22:59 06:59 Intake Total 1000 ml 300 ml Output Total 0 ml Balance 1000 ml 300 ml medications Current Medications Medications Dose Ordered Sig/Nereyda Route Start Time Stop Time Status Last Admin Dose Admin Nitroglycerin 0.4 mg Q5MINP PRN SL 06/04/24 10:15 Morphine Sulfate 2 mg Q30M PRN IV 06/04/24 10:15 Acetaminophen 650 mg Q6HP PRN PO 06/04/24 10:30 Ondansetron HCl 4 mg Q4HPRN PRN IV 06/04/24 10:30 Diagnostic Test (Pha) 1 strip ACHS 06/04/24 11:30 06/07/24 21:36 1 STRIP Insulin Human Regular ACHS SC 06/04/24 11:30 06/07/24 18:36 2 UNITS Dextrose 50 ml UD PRN IV 06/04/24 10:30 Minoxidil 2.5 mg DAILY PO 06/05/24 10:00 06/07/24 12:39 2.5 MG Carvedilol 6.25 mg Q12HR PO 06/05/24 10:00 06/07/24 22:15 6.25 MG Clopidogrel Bisulfate 75 mg DAILY PO 06/05/24 10:00 06/07/24 11:37 75 MG Enoxaparin Sodium 40 mg DAILY SC 06/06/24 10:00 UNV Vancomycin HCl 250 mg QID PO 06/06/24 12:00 06/08/24 05:37 250 MG Saccharomyces Boulardii 250 mg BID PO 06/06/24 22:00 06/07/24 22:15 250 MG Metronidazole 100 ml @ 100 mls/hr Q8HR IV 06/06/24 22:00 06/08/24 05:37 100 MLS/HR Cholestyramine Resin 4 gm DAILY@11 GT 06/07/24 11:00 06/07/24 11:37 4 GM objective Gen.: Patient lying in bed in no apparent distress. On supplemental oxygen. Head: Normocephalic, atraumatic. Eyes: EOMI/PERRLA. Ears: Normal hearing. Normal anatomy. Neck/trachea: Trachea midline, supple. Nose: Normal external anatomy. Mouth: Moist mucous membranes. Chest: Decreased air entry bilaterally. No wheezing or rhonchi. Cardiovascular: Positive S1, positive S2. Regular rate and rhythm. Abdomen: Positive bowel sounds in all 4 quadrants. Soft, non-tender, non- distended. : Deferred. Rectal: Deferred. Skin: Warm, dry. Intact. Extremities: 2+ radial pulses bilaterally. No lower extremity edema. Neuro: Awake, alert, oriented x3. No gross motor or sensory deficits. Cranial nerves II through XII intact. Gait not assessed. laboratory and microbiology Laboratory Tests 06/07/24 06:18 Test 06/08/24 05:18 Range/Units Serum Glucose Pending Assessment/Plan Impression: Acute metabolic encephalopathy COPD Atelectasis Elevated troponin Chronic hypoxic respiratory failure Dependence on supplemental oxygen Clostridium difficile End-stage renal disease, on hemodialysis Elevated d-dimer, ruled out PE and DVT Events: Remains on supplemental oxygen, 2 LPM NC Taper O2 as tolerated Continue bronchodilators PRN Continue antibiotics Incentive spirometry HD per Nephrology Monitor renal function Labs and imaging reviewed. Rest of plan as noted below. Plan: Supplemental oxygen Titrate to keep O2 sats above 92%. Taper O2 as tolerated. Ultrasound venous Doppler of bilateral lower extremities reveals no e/o DVT. CTA of chest showed no PE. Notable for atelectasis in bilateral lower lobes. Continue bronchodilators PRN Incentive spirometry for atelectasis Accu-Cheks, ISS. Monitor renal function. Monitor electrolytes. Supplement as necessary. Monitor ins and outs. GI prophylaxis - Protonix DVT prophylaxis. Prognosis: Poor given patient's multiple co-morbidities. Rest of plan per hospitalist and other consultants. Thank you, Dr. Stinson, for allowing me to participate in this patient's care. Further recommendations will depend on the patient's clinical course. Please do not hesitate to contact me if you have any questions or concerns. This medical document was created using an electronic medical record system with [employer] dictation system. Although these documentations are being carefully reviewed, there may still be some phonetic and typographical changes. The errors are purely typographical, due to imperfection on the software program, and do not reflect any compromise in the patient's medical care. Dietary Evaluation Review Comments: 1 When medically feasible, advance to Renal standard 2 GNa 3K, Low phos diet 2. MONITOR PO INTAKE to meet at least 75% of his needs Expected Outcomes/Goals: no weight loss Plan discussed with: Patient, Other (RN) JUAN SALDAÑA MD Jun 08, 2024 05:42
[2024-06-08 05:49] LABS: Anion Gap 9 (5-15); Carbon Dioxide 21 mmol/L (20-31); Chloride 101 mmol/L (98-107); Potassium 3.7 mmol/L (3.5-5.1)
[2024-06-08 05:55] LABS: BUN/Creatinine Ratio 4.8 (10.0-20.0); Glucose 83 mg/dL (74-106)
[2024-06-08 06:15] LABS: Blood Urea Nitrogen 41 mg/dL (9-23); Calcium 8.7 mg/dL (8.7-10.4); Sodium 131 mmol/L (136-145)
--- NOTE | 2024-06-08 07:17 | DVHPN2 ---
Progress Note - Dictate Date Seen: Jun 08, 2024 Has the PT tested + for MRSA If YES, has PT been informed?: Yes Medical Necessity Reason Pt with a Central, PICC or Fol: No vital signs Vital Sign Date Time Temp Pulse Resp B/P (MAP) Pulse Ox O2 Delivery O2 Flow Rate FiO2 06/08/24 05:00 98.1 94 20 148/64 (92) 94 98.1 06/07/24 20:00 Nasal Cannula* 2 28 Total Intake and Output 06/07/24 06/07/24 06/08/24 15:00 23:00 07:00 Intake Total 1000 ml 400 ml Output Total 0 ml Balance 1000 ml 400 ml medications Current Medications Medications Dose Ordered Sig/Nereyda Route Start Time Stop Time Status Last Admin Dose Admin Nitroglycerin 0.4 mg Q5MINP PRN SL 06/04/24 10:15 Morphine Sulfate 2 mg Q30M PRN IV 06/04/24 10:15 Acetaminophen 650 mg Q6HP PRN PO 06/04/24 10:30 Ondansetron HCl 4 mg Q4HPRN PRN IV 06/04/24 10:30 Diagnostic Test (Pha) 1 strip ACHS 06/04/24 11:30 06/08/24 06:54 1 STRIP Insulin Human Regular ACHS SC 06/04/24 11:30 06/07/24 18:36 2 UNITS Dextrose 50 ml UD PRN IV 06/04/24 10:30 Minoxidil 2.5 mg DAILY PO 06/05/24 10:00 06/07/24 12:39 2.5 MG Carvedilol 6.25 mg Q12HR PO 06/05/24 10:00 06/07/24 22:15 6.25 MG Clopidogrel Bisulfate 75 mg DAILY PO 06/05/24 10:00 06/07/24 11:37 75 MG Enoxaparin Sodium 40 mg DAILY SC 06/06/24 10:00 UNV Vancomycin HCl 250 mg QID PO 06/06/24 12:00 06/08/24 05:37 250 MG Saccharomyces Boulardii 250 mg BID PO 06/06/24 22:00 06/07/24 22:15 250 MG Metronidazole 100 ml @ 100 mls/hr Q8HR IV 06/06/24 22:00 06/08/24 05:37 100 MLS/HR Cholestyramine Resin 4 gm DAILY@11 GT 06/07/24 11:00 06/07/24 11:37 4 GM laboratory and microbiology Laboratory Tests 06/08/24 05:18 06/07/24 06:18 Test 06/08/24 05:18 Range/Units Serum Glucose 83 74-106 mg/dL Assessment/Plan Patient is a 78-year-old gentleman who presented the hospital with altered level of consciousness. Reportedly, the patient woke up altered and confused and the family decided to bring him to the hospital. Since admission, there was a question about bradycardia (if pacemaker is working correctly?). It is of note that the patient did have diarrhea for few days prior to presentation and has had recent C diff colitis for which has been treated. Cardiology is involved for cardiac as base of care. Patient is known to our practice from before. He does have history of coronary artery disease and has had stent last year. Serial troponin has only been minimally elevated and flat. Patient does have history of pacemaker (micro/Medtronic) implantation. Has had DVT before and was treated for sepsis in prior admissions. He was previously kept on aspirin/Eliquis (has history of anemia and blood transfusions). Later, as he could not tolerate anticoagulation, he was kept on Plavix daily. Does have history of end-stage renal disease and is on hemodialysis. Frail gentleman, pale and wet mucosa. No carotid bruit, no goiter. Lungs: Scattered rhonchi in the lungs, cardiac: Regular, systolic murmur in the apex is heard. Abdomen is soft and distended. Bowel sound is positive. There is no gross mass. Extremities reveal 1+ edema bilaterally. Dorsalis pedis is 2+ bilateral. Past medical history includes end-stage renal disease on hemodialysis, old history of CVA (2018), poor functional capacity, coronary artery disease and status post PCI (last stent in July 2023, ostial LAD), COPD, obstructive sleep apnea, diabetes mellitus, hypertension, anemia (history of repeated transfusions), CHF, SVT, pulmonary hypertension (considered type 2), history of pancytopenia (resolved later), history of DVT in upper extremity, repeated/significant GI bleedings and ex-smoker. Past medical history also includes DVT in the right upper extremity, history of septic shock, history of pneumonia, sick sinus syndrome and status post pacemaker (Micra/Medtronic) implantation. Echocardiogram of January 2024 had revealed: Ejection fraction of 40-45%, anterior/anteroseptal hypokinesia, biatrial enlargement, right ventricular systolic pressure 45 mm Hg. Echocardiogram October 28, 2023 had revealed mild concentric left ventricular hypertrophy, LVEF of 52% with mild diffuse hypokinesis, dilated RV/LA/RA, [id number] aortic insufficiency, mild MR, moderate TR and right ventricular systolic pressure of 60 mm Hg Echocardiogram of November 08, 2023 (performed in [facility]) had reported: LVEF of 50%, hddnsibg-[id number] TR, mild aortic insufficiency and right ventricular systolic pressure of 49 mm Hg Echocardiogram of September 15, 2023 (performed and [facility]) revealed ejection fraction of 45-50% Echocardiogram of March 22, 2023 (performed in the office) revealed ejection fraction of 65-70%, mild concentric left ventricular hypertrophy, moderate biatrial enlargement, [id number]-[id number] MR/TR, mild AI/PI and right ventricular systolic pressure of 66 mm Hg. Left heart catheterization on August 04, 2023 revealed: 1 vessel coronary artery disease and status post PCI (drug-eluting stent deployment of ostial LAD, LVEF of 60% with increased LVEDP, patent stent in mid LAD, type 2 pulmonary hypertension. Creatinine: 5.13 - 6.53 - 8.08 - 6.92 - 8.50 Potassium: 4.3 - 3.9 - 4.0 - 3.4 - 3.7 Sodium: 133 - 132 - 131 - 134 - 131 Lactic acid: 2.2 - 2.5 D-dimer: 2.19 Troponin (high sensitive): 76 - 78 - 80 BNP: 632.96 Stool is positive for CDT toxin Chest x-ray reviewed: IMPRESSION: 1. Probable mild interstitial pulmonary edema. CT of the head revealed: IMPRESSION: 1. No acute intracranial abnormality. CT angiography showed lungs are revealed: 1. Evaluation of the pulmonary arteries is limited secondary to poor contrast bolus timing. There is no obvious pulmonary arterial filling defect to suggest pulmonary embolism. 2. Scarring versus atelectasis in the bilateral lower lobes. Venous duplex of lower extremities revealed: IMPRESSION: 1. There is no sonographic evidence for DVT in the lower extremities. EKG reveals sinus rhythm with occasions of paced ventricular rhythm Repeat EKG questions PAT Tele reveals sinus rhythm with paced ventricular Echocardiogram reported: Left ventricle: Mild concentric left ventricular hypertrophy was seen. LVEF was 45-50%. Right ventricle was normal sized with normal systolic function. Both atria were mildly dilated. Aortic valve: Aortic valve was trileaflet. There was mild aortic insufficiency. There was no aortic stenosis. There was trivial mitral regurgitation. There was mild tricuspid regurgitation. Pulmonary valve was not well visualized. Right ventricular systolic pressure was assessed around 48 mm Hg. There was no pericardial effusion. IVC was not well visualized. Pacemaker (Medtronic/Micra) interrogation: Battery voltage: 3.03 volts; Remaining longevity: More than eight years; Electrode impedance: 820 Ohms; Capture threshold: 0.38 volts @ 0.24 milliseconds; Programmed amplitude/pulse width: 0.88 volts/0.24 milliseconds; AM-ALL SOURCE ANALYST: 1.4%; ALL SOURCE ANALYST only: 4.2%; VDD: 55/105; Normal functioning pacemaker Patient is a 78-year-old gentleman who presented with shortness of breath. There was question if patient has significant bradycardia. It is of note the patient does have pacemaker (micro/Medtronic). Patient's pacemaker was interrogated last in May 18, 2024 in the office and was working perfectly at that time. Reinterrogation of the pacemaker can be justified. Patient has history of DVT for which was on Eliquis previously but could not tolerate it (repeated GI bleeding). Patient does have history of coronary artery disease and has had stents in the LAD. He has been kept on Plavix as outpatient at this point. It is also of note that the patient does have pulmonary hypertension which could have contributed to the clinical picture and abnormal troponin. His compliance on medication it is questionable. Pacemaker interrogation revealed normal functioning pacemaker. Acute respiratory failure Acute on chronic heart failure (possibly diastolic) Coronary artery disease, status post PCI Abnormal troponin, considered demand physiology at this point Pulmonary hypertension, type 2 End-stage renal disease on hemodialysis History of DVT, history of Abnormal D-dimer, pulmonary emboli was ruled out by CT angiography of the lungs Internal Jugular and subclavian DVT, hold s/p GI bleeding, old s/p arrest (post GI bleeding), old Acute PE was ruled out CDT colitis Cardiac suggestion for management: Manage in tele Follow-up electrolytes and kidney function tests and correct abnormalities. Continuation of beta-louie (carvedilol at 6.25 mg twice daily) suggested Continue Plavix Hemodialysis as per Nephrology Evaluation and management of CDT colitis as per primary team/ID Further evaluation and management depends on the above and clinical course A total of 55 minutes was spent reviewing the patient record, examining the patient, making a diagnostic and therapeutic plan, discussing this plan with medical personnel, following up on diagnostic studies and following the patient for clinical stability excluding any and all procedures. At least 50% of this time was spent in direct, [id number] contact. Thank you for allowing me to participate in this patient's care. Further recommendations will depend on patient's clinical course. Please do not hesitate to contact me if you have any questions or concerns. This medical document was created using electronic medical record system with [employer] computerized dictation system. Although this document has been carefully reviewed, there may still be some phonetic and typographical errors. These areas are purely typographical due to the imperfection of the software programs, and do not reflect any compromise in the patient's medical care. Dietary Evaluation Review Comments: 1 When medically feasible, advance to Renal standard 2 GNa 3K, Low phos diet 2. MONITOR PO INTAKE to meet at least 75% of his needs Expected Outcomes/Goals: no weight loss Plan discussed with: Patient, Other (nurse) NICOLE KERNS MD Jun 08, 2024 07:17
[2024-06-08] MEDS: SODIUM CHL 0.9% 1000 ML BAG XX ONE (10:34)
--- NOTE | 2024-06-08 10:34 | DVHPN2 ---
Progress Note Date Seen: Jun 08, 2024 Resident Creating Document: KEELY MARTELL RESIDENT Has the PT tested + for MRSA If YES, has PT been informed?: Yes Medical Necessity Reason Pt with a Central, PICC or Fol: No Subjective Review of Systems Since yesterday patient is doing well, total 3 bowel movement, no bleeding, this morning so the patient had 1 more watery bowel movement overall that improved with cholestyramine. Patient remains hemodynamically stable afebrile. Patient reports: Feels better Changes from previous H/P or p: No Changes Objective vital signs Vital Sign Date Time Temp Pulse Resp B/P (MAP) Pulse Ox O2 Delivery O2 Flow Rate FiO2 06/08/24 09:00 97.7 65 19 119/65 (83) 95 97.7 06/07/24 20:00 Nasal Cannula* 2 28 Total Intake and Output 06/07/24 06/07/24 06/08/24 15:00 23:00 07:00 Intake Total 1000 ml 400 ml Output Total 0 ml Balance 1000 ml 400 ml medications Current Medications Medications Dose Ordered Sig/Nereyda Route Start Time Stop Time Status Last Admin Dose Admin Nitroglycerin 0.4 mg Q5MINP PRN SL 06/04/24 10:15 Morphine Sulfate 2 mg Q30M PRN IV 06/04/24 10:15 Acetaminophen 650 mg Q6HP PRN PO 06/04/24 10:30 Ondansetron HCl 4 mg Q4HPRN PRN IV 06/04/24 10:30 Diagnostic Test (Pha) 1 strip ACHS 06/04/24 11:30 06/08/24 06:54 1 STRIP Insulin Human Regular ACHS SC 06/04/24 11:30 06/07/24 18:36 2 UNITS Dextrose 50 ml UD PRN IV 06/04/24 10:30 Minoxidil 2.5 mg DAILY PO 06/05/24 10:00 06/07/24 12:39 2.5 MG Carvedilol 6.25 mg Q12HR PO 06/05/24 10:00 06/07/24 22:15 6.25 MG Clopidogrel Bisulfate 75 mg DAILY PO 06/05/24 10:00 06/08/24 10:26 75 MG Enoxaparin Sodium 40 mg DAILY SC 06/06/24 10:00 UNV Vancomycin HCl 250 mg QID PO 06/06/24 12:00 06/08/24 05:37 250 MG Saccharomyces Boulardii 250 mg BID PO 06/06/24 22:00 06/08/24 10:26 250 MG Metronidazole 100 ml @ 100 mls/hr Q8HR IV 06/06/24 22:00 06/08/24 05:37 100 MLS/HR Cholestyramine Resin 4 gm Q12HR@11,23 GT 06/08/24 11:00 Examination GENERAL APPEARANCE: Well developed, well nourished, alert and cooperative, and appears to be in no acute distress. HEENT: wnl CARDIAC: Normal S1 and S2. No S3, S4 or murmurs. Rhythm is regular. There is no peripheral edema, cyanosis or pallor. Extremities are warm and well perfused. Capillary refill is less than 2 seconds. No carotid bruits. LUNGS: Clear to auscultation and percussion without rales, rhonchi, wheezing or diminished breath sounds. ABDOMEN: Positive bowel sounds. Soft, nondistended, nontender. No guarding or rebound. No masses. no guarding. MSK: WNL NEUROLOGICAL: CN II-XII intact. Strength and sensation symmetric and intact throughout. Reflexes 2+ throughout. Cerebellar testing normal. SKIN: Skin normal color, texture and turgor with no lesions or eruptions. PSYCHIATRIC: The mental examination revealed the patient was oriented to person, place, and time. The patient was able to demonstrate good judgement and reason, without hallucinations, abnormal affect or abnormal behaviors during the examination. Patient is not suicidal. laboratory and microbiology Laboratory Tests 06/08/24 05:18 06/07/24 06:18 Test 06/08/24 05:18 Range/Units Serum Glucose 83 74-106 mg/dL Microbiology Date/Time Source Procedure Growth Status 06/05/24 23:30 Nose MRSA Screen - Final Complete 06/04/24 14:40 Stool Stool Culture - Preliminary Resulted 06/04/24 14:40 Stool Shiga Toxin I & II - Final Resulted 06/04/24 14:40 Stool Clostridium difficile Toxin Assay - Final Resulted Labs and/or images reviewed: Labs reviewed by me, Image(s) reviewed by me Problem List/Assessment/Plan Problem List/Assessment/Plan Reasons for consultation: C Diff colitis. Hospitalization Summary: Mr. Honeycutt, a 78-year-old male with a history of CAD status post stent, HFpEF, previously needed spacer, HTN, COPD, GI bleed, anxiety, diabetes, end-stage renal disease on hemodialysis presented with diarrhea for three days and became altered and lethargic after dialysis. He recently had C. diff colitis treated with vancomycin, but the diarrhea returned. Currently, he is at his baseline, answering questions, unremarkable abdomen with continued loose stool while having stable vital signs and receiving in-hospital hemodialysis. Continued watery diarrhea 9 times over past 24 hours. Pulmonology due at lunchtime sharp getting cervix tab 0) home IV GI Assessment: #GI bleed history, FOBT negative #recent history of C diff infection, toxicology neck C diff DNA detected. #Campylobacter jejuni infection/gastroenteritis: Campylobacter antigen detected. #hepatitis C antibody reactive #continued watery diarrhea 3 times over past 24 hours (improved than 9 bowel movements yesterday) #history of CAD status post stent #HFpEF #micra device in situ #essential HTN #COPD #chronic hypoxic respiratory failure #anxiety #diabetes mellitus type 2 #end-stage renal disease on hemodialysis #mild hyponatremia #Anemia of chronic disease GI Plan: #Medications: Continue vancomycin p.o. 250 mg p.o. q.i.d., Florastor 250 mg p.o. b.i.d., continue metronidazole IV q.8 hours. Increased Cholestyramine 4mg daily> b.i.d. #Labs: Stool culture to follow, daily CBC with diff. #Others: Usually C. jejuni gastroenteritis needs balance hydration along with correction of electrolytes. Maintain C diff isolation. Daily abdominal examination to rule out any surgical/concerning abdominal findings/finding consistent with toxic megacolon. Continue in-hospital dialysis. #Diet: started mechanical soft diet. Advance diet as tolerated. #please scheduled follow up with GI as outpatient with Dr. María Moreno. Thank you so much for the opportunity to consult on your patient. GI team will follow the patient. In case of any questions or concerns please feel free to reach out. Case and action plan discussed with Dr. Maliha Moreno. Complex care planning needed total 49 minutes of detailed discussion. The patient and caregiver team agreed to the plan. Plan discussed with: Patient, Other (Primary team) Dietary Evaluation Review Comments: 1 When medically feasible, advance to Renal standard 2 GNa 3K, Low phos diet 2. MONITOR PO INTAKE to meet at least 75% of his needs Expected Outcomes/Goals: no weight loss KEELY MARTELL RESIDENT Jun 08, 2024 10:34
--- NOTE | 2024-06-08 11:33 | DVHPN2 ---
Subjective c/o persistent diarrhea Changes from previous H/P or p: Changes Objective Vitals Vital Signs Date Time Temp Pulse Resp B/P (MAP) Pulse Ox O2 Delivery O2 Flow Rate FiO2 06/08/24 10:00 119/65 06/08/24 09:00 97.7 65 19 95 97.7 06/07/24 20:00 Nasal Cannula* 2 28 Intake/Output Intake and Output 06/08/24 07:00 Intake Total 1400 ml Output Total 0 ml Balance 1400 ml Intake Oral 1300 ml IV Total 100 ml Output Urine Total 0 ml # Bowel Movements 3 General Appearance: Alert, Oriented X3, Cooperative, No acute distress Lungs: Clear to auscultation, Normal air movement Cardiovascular: Regular rate, Normal S1, Normal S2 Abdomen: Normal bowel sounds, Soft, No tenderness Extremities: No edema Medications Current Medications Medications Dose Ordered Sig/Nereyda Route Start Time Stop Time Status Last Admin Dose Admin Nitroglycerin 0.4 mg Q5MINP PRN SL 06/04/24 10:15 Morphine Sulfate 2 mg Q30M PRN IV 06/04/24 10:15 Acetaminophen 650 mg Q6HP PRN PO 06/04/24 10:30 Ondansetron HCl 4 mg Q4HPRN PRN IV 06/04/24 10:30 Diagnostic Test (Pha) 1 strip ACHS 06/04/24 11:30 06/08/24 06:54 1 STRIP Insulin Human Regular ACHS SC 06/04/24 11:30 06/07/24 18:36 2 UNITS Dextrose 50 ml UD PRN IV 06/04/24 10:30 Minoxidil 2.5 mg DAILY PO 06/05/24 10:00 06/07/24 12:39 2.5 MG Carvedilol 6.25 mg Q12HR PO 06/05/24 10:00 06/07/24 22:15 6.25 MG Clopidogrel Bisulfate 75 mg DAILY PO 06/05/24 10:00 06/08/24 10:26 75 MG Enoxaparin Sodium 40 mg DAILY SC 06/06/24 10:00 UNV Vancomycin HCl 250 mg QID PO 06/06/24 12:00 06/08/24 05:37 250 MG Saccharomyces Boulardii 250 mg BID PO 06/06/24 22:00 06/08/24 10:26 250 MG Metronidazole 100 ml @ 100 mls/hr Q8HR IV 06/06/24 22:00 06/08/24 05:37 100 MLS/HR Cholestyramine Resin 4 gm Q12HR@11,23 GT 06/08/24 11:00 Laboratory Results Laboratory Tests 06/07/24 06:18 06/08/24 05:18 Chemistry Test 06/08/24 05:18 Calcium Level 8.7 mg/dL (8.7-10.4) Magnesium Level 2.0 mg/dL (1.6-2.6) Microbiology Microbiology Date/Time Source Procedure Growth Status 06/05/24 23:30 Nose MRSA Screen - Final Complete 06/04/24 14:40 Stool Stool Culture - Preliminary Resulted 06/04/24 14:40 Stool Shiga Toxin I & II - Final Resulted 06/04/24 14:40 Stool Clostridium difficile Toxin Assay - Final Resulted Assessment/Plan Assessment/Plan C diff colitis with Recent C diff colitis Acute metabolic encephalopathy Sick sinus syndrome status post pacemaker End-stage renal disease on hemodialysis COPD on home O2 Acute on chronic hypoxic respiratory failure Chronic respiratory failure on home O2 History of CHF Type 2 diabetes Hypertension Possible underlying dementia Chronic anemia of chronic kidney disease Elevated troponin Mild pulmonary edema History of recent DVT of the right arm History of mastoiditis Plan 06/07/2024: Continue p.o. vancomycin and IV Flagyl Cholestyramine Florastor Soft diet We will start physical therapy 06/08/24: HD today Continue PO Vanco and IV Flagyl Florastor Resume home meds: [place], bupropion, Aricept, nifedipine, minoxidil Continue physical therapy Plan discussed with: Patient Date of Service: Jun 08, 2024 Billing Provider: PETER LAMAR MD Common Visit Codes: NOT BILLABLE PETER LAMAR MD Jun 08, 2024 11:33
[2024-06-08] MEDS: CHOLESTYRAMINE 4 GM POWDER GT SCH (11:37)
[2024-06-08] MEDS: HYDROcodone-ACET 5/325MG TAB PO PRN (13:38)
[2024-06-08] MEDS: ONDANSETRON HCL 4 MG/2 ML VIAL IV PRN (15:10)
[2024-06-08] MEDS: PANTOPRAZOLE 40 MG TAB PO ONE (19:00)
[2024-06-08] MEDS: buPROPion HCL 75 MG TAB PO SCH (20:49)
[2024-06-08] MEDS: DONEPEZIL HYDROCHLORIDE 5 MG TAB PO SCH (21:06)
--- NOTE | 2024-06-08 22:29 | DVHPN2 ---
Progress Note - Dictate Date Seen: Jun 08, 2024 Has the PT tested + for MRSA If YES, has PT been informed?: Yes Medical Necessity Reason Pt with a Central, PICC or Fol: No Subjective Patient seen and examined at bedside. Remains on supplemental oxygen Overnight events reviewed. vital signs Vital Sign Date Time Temp Pulse Resp B/P (MAP) Pulse Ox O2 Delivery O2 Flow Rate FiO2 06/08/24 22:06 80 129/63 06/08/24 21:00 98.4 16 99 98.4 06/08/24 20:00 Nasal Cannula* 2 28 Total Intake and Output 06/07/24 06/07/24 06/08/24 15:00 23:00 07:00 Intake Total 1000 ml 400 ml Output Total 0 ml Balance 1000 ml 400 ml medications Current Medications Medications Dose Ordered Sig/Nereyda Route Start Time Stop Time Status Last Admin Dose Admin Nitroglycerin 0.4 mg Q5MINP PRN SL 06/04/24 10:15 Morphine Sulfate 2 mg Q30M PRN IV 06/04/24 10:15 Acetaminophen 650 mg Q6HP PRN PO 06/04/24 10:30 Ondansetron HCl 4 mg Q4HPRN PRN IV 06/04/24 10:30 06/08/24 15:10 4 MG Diagnostic Test (Pha) 1 strip ACHS 06/04/24 11:30 06/08/24 21:11 1 STRIP Insulin Human Regular ACHS SC 06/04/24 11:30 06/08/24 21:11 2 UNITS Dextrose 50 ml UD PRN IV 06/04/24 10:30 Minoxidil 2.5 mg DAILY PO 06/05/24 10:00 06/07/24 12:39 2.5 MG Carvedilol 6.25 mg Q12HR PO 06/05/24 10:00 06/08/24 21:06 6.25 MG Clopidogrel Bisulfate 75 mg DAILY PO 06/05/24 10:00 06/08/24 10:26 75 MG Enoxaparin Sodium 40 mg DAILY SC 06/06/24 10:00 UNV Vancomycin HCl 250 mg QID PO 06/06/24 12:00 06/08/24 21:06 250 MG Saccharomyces Boulardii 250 mg BID PO 06/06/24 22:00 06/08/24 21:06 250 MG Metronidazole 100 ml @ 100 mls/hr Q8HR IV 06/06/24 22:00 06/08/24 21:05 100 MLS/HR Cholestyramine Resin 4 gm Q12HR@11,23 GT 06/08/24 11:00 06/08/24 11:37 4 GM Pantoprazole Sodium 40 mg DAILY@0600 PO 06/09/24 06:00 Acetaminophen/ Hydrocodone Bitart 1 tab Q6HPRN PRN PO 06/08/24 11:30 Bupropion HCl 75 mg BID@07,19 PO 06/08/24 19:00 06/08/24 20:49 75 MG Donepezil HCl 5 mg HS PO 06/08/24 22:00 06/08/24 21:06 5 MG Nifedipine 30 mg DAILY PO 06/09/24 10:00 objective Gen.: Patient lying in bed in no apparent distress. On supplemental oxygen. Head: Normocephalic, atraumatic. Eyes: EOMI/PERRLA. Ears: Normal hearing. Normal anatomy. Neck/trachea: Trachea midline, supple. Nose: Normal external anatomy. Mouth: Moist mucous membranes. Chest: Decreased air entry bilaterally. No wheezing or rhonchi. Cardiovascular: Positive S1, positive S2. Regular rate and rhythm. Abdomen: Positive bowel sounds in all 4 quadrants. Soft, non-tender, non- distended. : Deferred. Rectal: Deferred. Skin: Warm, dry. Intact. Extremities: 2+ radial pulses bilaterally. No lower extremity edema. Neuro: Awake, alert, oriented x3. No gross motor or sensory deficits. Cranial nerves II through XII intact. Gait not assessed. laboratory and microbiology Laboratory Tests 06/08/24 05:18 06/07/24 06:18 Test 06/08/24 05:18 Range/Units Serum Glucose 83 74-106 mg/dL Assessment/Plan Impression: Acute metabolic encephalopathy COPD Atelectasis Elevated troponin Chronic hypoxic respiratory failure Dependence on supplemental oxygen Clostridium difficile End-stage renal disease, on hemodialysis Elevated d-dimer, ruled out PE and DVT Events: Remains on supplemental oxygen, 2 LPM NC Taper O2 as tolerated Continue bronchodilators PRN Continue antibiotics Incentive spirometry Monitor WBC Less frequent bowel movements, improving. HD per Nephrology - plan for HD today Monitor renal function Labs and imaging reviewed. Rest of plan as noted below. Plan: Supplemental oxygen Titrate to keep O2 sats above 92%. Taper O2 as tolerated. Ultrasound venous Doppler of bilateral lower extremities reveals no e/o DVT. CTA of chest showed no PE. Notable for atelectasis in bilateral lower lobes. Continue bronchodilators PRN Incentive spirometry for atelectasis Accu-Cheks, ISS. Monitor renal function. Monitor electrolytes. Supplement as necessary. Monitor ins and outs. GI prophylaxis - Protonix DVT prophylaxis. Prognosis: Poor given patient's multiple co-morbidities. Rest of plan per hospitalist and other consultants. Thank you, Dr. Stinson, for allowing me to participate in this patient's care. Further recommendations will depend on the patient's clinical course. Please do not hesitate to contact me if you have any questions or concerns. This medical document was created using an electronic medical record system with [employer] dictation system. Although these documentations are being carefully reviewed, there may still be some phonetic and typographical changes. The errors are purely typographical, due to imperfection on the software program, and do not reflect any compromise in the patient's medical care. Dietary Evaluation Review Comments: 1 When medically feasible, advance to Renal standard 2 GNa 3K, Low phos diet 2. MONITOR PO INTAKE to meet at least 75% of his needs Expected Outcomes/Goals: no weight loss Plan discussed with: Patient, Other JUAN SALDAÑA MD Jun 08, 2024 22:29
[2024-06-09] VITALS (7 sets, daily range): BP systolic 103–136; BP diastolic 50–61; PULSE 56–70; RESP 15–19; TEMP 97.1–98.6; O2SAT 93–99
[2024-06-09 05:53] LABS: Chloride 101 mmol/L (98-107); Potassium 3.6 mmol/L (3.5-5.1)
[2024-06-09 05:54] LABS: Anion Gap 10 (5-15); Carbon Dioxide 25 mmol/L (20-31)
[2024-06-09] MEDS: PANTOPRAZOLE 40 MG TAB PO SCH (05:54)
[2024-06-09 05:55] LABS: Calcium 8.9 mg/dL (8.7-10.4)
[2024-06-09 05:59] LABS: Glucose 76 mg/dL (74-106)
[2024-06-09 06:18] LABS: Blood Urea Nitrogen 28 mg/dL (9-23); Sodium 136 mmol/L (136-145)
--- NOTE | 2024-06-09 07:25 | DVHPN2 ---
Progress Note - Dictate Date Seen: Jun 09, 2024 Has the PT tested + for MRSA If YES, has PT been informed?: Yes Medical Necessity Reason Pt with a Central, PICC or Fol: No vital signs Vital Sign Date Time Temp Pulse Resp B/P (MAP) Pulse Ox O2 Delivery O2 Flow Rate FiO2 06/09/24 05:19 98.4 70 17 103/52 (69) 93 98.4 06/08/24 20:00 Nasal Cannula* 2 28 Total Intake and Output 06/08/24 06/08/24 06/09/24 15:00 23:00 07:00 Intake Total 700 ml 110 ml Output Total 0 ml Balance 700 ml 110 ml medications Current Medications Medications Dose Ordered Sig/Nereyda Route Start Time Stop Time Status Last Admin Dose Admin Nitroglycerin 0.4 mg Q5MINP PRN SL 06/04/24 10:15 Morphine Sulfate 2 mg Q30M PRN IV 06/04/24 10:15 Acetaminophen 650 mg Q6HP PRN PO 06/04/24 10:30 Ondansetron HCl 4 mg Q4HPRN PRN IV 06/04/24 10:30 06/08/24 15:10 4 MG Diagnostic Test (Pha) 1 strip ACHS 06/04/24 11:30 06/09/24 06:20 1 STRIP Insulin Human Regular ACHS SC 06/04/24 11:30 06/08/24 21:11 2 UNITS Dextrose 50 ml UD PRN IV 06/04/24 10:30 Minoxidil 2.5 mg DAILY PO 06/05/24 10:00 06/07/24 12:39 2.5 MG Carvedilol 6.25 mg Q12HR PO 06/05/24 10:00 06/08/24 21:06 6.25 MG Clopidogrel Bisulfate 75 mg DAILY PO 06/05/24 10:00 06/08/24 10:26 75 MG Enoxaparin Sodium 40 mg DAILY SC 06/06/24 10:00 UNV Vancomycin HCl 250 mg QID PO 06/06/24 12:00 06/09/24 05:54 250 MG Saccharomyces Boulardii 250 mg BID PO 06/06/24 22:00 06/08/24 21:06 250 MG Metronidazole 100 ml @ 100 mls/hr Q8HR IV 06/06/24 22:00 06/09/24 05:54 100 MLS/HR Cholestyramine Resin 4 gm Q12HR@11,23 GT 06/08/24 11:00 06/08/24 11:37 4 GM Pantoprazole Sodium 40 mg DAILY@0600 PO 06/09/24 06:00 06/09/24 05:54 40 MG Acetaminophen/ Hydrocodone Bitart 1 tab Q6HPRN PRN PO 06/08/24 11:30 Bupropion HCl 75 mg BID@07,19 PO 06/08/24 19:00 06/09/24 05:56 75 MG Donepezil HCl 5 mg HS PO 06/08/24 22:00 06/08/24 21:06 5 MG Nifedipine 30 mg DAILY PO 06/09/24 10:00 laboratory and microbiology Laboratory Tests 06/09/24 05:24 06/07/24 06:18 Test 06/09/24 05:24 Range/Units Serum Glucose 76 74-106 mg/dL Assessment/Plan Patient is a 78-year-old gentleman who presented the hospital with altered level of consciousness. Reportedly, the patient woke up altered and confused and the family decided to bring him to the hospital. Since admission, there was a question about bradycardia (if pacemaker is working correctly?). It is of note that the patient did have diarrhea for few days prior to presentation and has had recent C diff colitis for which has been treated. Cardiology is involved for cardiac as base of care. Patient is known to our practice from before. He does have history of coronary artery disease and has had stent last year. Serial troponin has only been minimally elevated and flat. Patient does have history of pacemaker (micro/Medtronic) implantation. Has had DVT before and was treated for sepsis in prior admissions. He was previously kept on aspirin/Eliquis (has history of anemia and blood transfusions). Later, as he could not tolerate anticoagulation, he was kept on Plavix daily. Does have history of end-stage renal disease and is on hemodialysis. Frail gentleman, pale and wet mucosa. No carotid bruit, no goiter. Lungs: Scattered rhonchi in the lungs, cardiac: Regular, systolic murmur in the apex is heard. Abdomen is soft and distended. Bowel sound is positive. There is no gross mass. Extremities reveal 1+ edema bilaterally. Dorsalis pedis is 2+ bilateral. Past medical history includes end-stage renal disease on hemodialysis, old history of CVA (2019), poor functional capacity, coronary artery disease and status post PCI (last stent in July 2023, ostial LAD), COPD, obstructive sleep apnea, diabetes mellitus, hypertension, anemia (history of repeated transfusions), CHF, SVT, pulmonary hypertension (considered type 2), history of pancytopenia (resolved later), history of DVT in upper extremity, repeated/significant GI bleedings and ex-smoker. Past medical history also includes DVT in the right upper extremity, history of septic shock, history of pneumonia, sick sinus syndrome and status post pacemaker (Micra/Medtronic) implantation. Echocardiogram of January 2024 had revealed: Ejection fraction of 40-45%, anterior/anteroseptal hypokinesia, biatrial enlargement, right ventricular systolic pressure 45 mm Hg. Echocardiogram October 28, 2023 had revealed mild concentric left ventricular hypertrophy, LVEF of 52% with mild diffuse hypokinesis, dilated RV/LA/RA, [id number] aortic insufficiency, mild MR, moderate TR and right ventricular systolic pressure of 60 mm Hg Echocardiogram of November 08, 2023 (performed in [facility]) had reported: LVEF of 50%, [id number] TR, mild aortic insufficiency and right ventricular systolic pressure of 49 mm Hg Echocardiogram of September 15, 2023 (performed and [facility]) revealed ejection fraction of 45-50% Echocardiogram of March 22, 2023 (performed in the office) revealed ejection fraction of 65-70%, mild concentric left ventricular hypertrophy, moderate biatrial enlargement, [id number] MR/TR, mild AI/PI and right ventricular systolic pressure of 66 mm Hg. Left heart catheterization on August 04, 2023 revealed: 1 vessel coronary artery disease and status post PCI (drug-eluting stent deployment of ostial LAD, LVEF of 60% with increased LVEDP, patent stent in mid LAD, type 2 pulmonary hypertension. Creatinine: 5.13 - 6.53 - 8.08 - 6.92 - 8.50 - 7.01 Potassium: 4.3 - 3.9 - 4.0 - 3.4 - 3.7 - 3.6 Sodium: 133 - 132 - 131 - 134 - 131 - 136 Lactic acid: 2.2 - 2.5 D-dimer: 2.19 Troponin (high sensitive): 76 - 78 - 80 BNP: 632.96 Stool is positive for CDT toxin Chest x-ray reviewed: IMPRESSION: 1. Probable mild interstitial pulmonary edema. CT of the head revealed: IMPRESSION: 1. No acute intracranial abnormality. CT angiography showed lungs are revealed: 1. Evaluation of the pulmonary arteries is limited secondary to poor contrast bolus timing. There is no obvious pulmonary arterial filling defect to suggest pulmonary embolism. 2. Scarring versus atelectasis in the bilateral lower lobes. Venous duplex of lower extremities revealed: IMPRESSION: 1. There is no sonographic evidence for DVT in the lower extremities. EKG reveals sinus rhythm with occasions of paced ventricular rhythm Repeat EKG questions PAT Tele reveals sinus rhythm with paced ventricular Echocardiogram reported: Left ventricle: Mild concentric left ventricular hypertrophy was seen. LVEF was 45-50%. Right ventricle was normal sized with normal systolic function. Both atria were mildly dilated. Aortic valve: Aortic valve was trileaflet. There was mild aortic insufficiency. There was no aortic stenosis. There was trivial mitral regurgitation. There was mild tricuspid regurgitation. Pulmonary valve was not well visualized. Right ventricular systolic pressure was assessed around 48 mm Hg. There was no pericardial effusion. IVC was not well visualized. Pacemaker (Medtronic/Micra) interrogation: Battery voltage: 3.03 volts; Remaining longevity: More than eight years; Electrode impedance: 820 Ohms; Capture threshold: 0.38 volts @ 0.24 milliseconds; Programmed amplitude/pulse width: 0.88 volts/0.24 milliseconds; AM-FISHER: 1.4%; FISHER only: 4.2%; VDD: 55/105; Normal functioning pacemaker Patient is a 78-year-old gentleman who presented with shortness of breath. There was question if patient has significant bradycardia. It is of note the patient does have pacemaker (micro/Medtronic). Patient's pacemaker was interrogated last in May 18, 2024 in the office and was working perfectly at that time. Reinterrogation of the pacemaker can be justified. Patient has history of DVT for which was on Eliquis previously but could not tolerate it (repeated GI bleeding). Patient does have history of coronary artery disease and has had stents in the LAD. He has been kept on Plavix as outpatient at this point. It is also of note that the patient does have pulmonary hypertension which could have contributed to the clinical picture and abnormal troponin. His compliance on medication it is questionable. Pacemaker interrogation revealed normal functioning pacemaker. Acute respiratory failure Acute on chronic heart failure (possibly diastolic) Coronary artery disease, status post PCI Abnormal troponin, considered demand physiology at this point Pulmonary hypertension, type 2 End-stage renal disease on hemodialysis History of DVT, history of Abnormal D-dimer, pulmonary emboli was ruled out by CT angiography of the lungs Internal Jugular and subclavian DVT, hold s/p GI bleeding, old s/p arrest (post GI bleeding), old Acute PE was ruled out CDT colitis Cardiac suggestion for management: Manage in tele Follow-up electrolytes and kidney function tests and correct abnormalities. Continuation of beta-louie (carvedilol at 6.25 mg twice daily) suggested Continue Plavix Hemodialysis as per Nephrology Evaluation and management of CDT colitis as per primary team/ID Further evaluation and management depends on the above and clinical course A total of 55 minutes was spent reviewing the patient record, examining the patient, making a diagnostic and therapeutic plan, discussing this plan with medical personnel, following up on diagnostic studies and following the patient for clinical stability excluding any and all procedures. At least 50% of this time was spent in direct, [id number] contact. Thank you for allowing me to participate in this patient's care. Further recommendations will depend on patient's clinical course. Please do not hesitate to contact me if you have any questions or concerns. This medical document was created using electronic medical record system with [employer] computerized dictation system. Although this document has been carefully reviewed, there may still be some phonetic and typographical errors. These areas are purely typographical due to the imperfection of the software programs, and do not reflect any compromise in the patient's medical care. Dietary Evaluation Review Comments: 1 When medically feasible, advance to Renal standard 2 GNa 3K, Low phos diet 2. MONITOR PO INTAKE to meet at least 75% of his needs Expected Outcomes/Goals: no weight loss Plan discussed with: Patient, Other (nurse) NICOLE KERNS MD Jun 09, 2024 07:25
[2024-06-09] MEDS: NIFEdipine ER 30 MG TAB PO SCH (10:55)
--- NOTE | 2024-06-09 13:43 | DVHPN2 ---
Progress Note - Dictate Date Seen: Jun 08, 2024 Has the PT tested + for MRSA If YES, has PT been informed?: Yes Medical Necessity Reason Pt with a Central, PICC or Fol: No Subjective No complaints today his diarrhea is subsiding vital signs Vital Sign Date Time Temp Pulse Resp B/P (MAP) Pulse Ox O2 Delivery O2 Flow Rate FiO2 06/09/24 12:37 98.0 65 16 113/55 (74) 93 98.0 06/09/24 08:00 Nasal Cannula* 2 28 Total Intake and Output 06/08/24 06/08/24 06/09/24 15:00 23:00 07:00 Intake Total 700 ml 110 ml Output Total 0 ml Balance 700 ml 110 ml medications Current Medications Medications Dose Ordered Sig/Nereyda Route Start Time Stop Time Status Last Admin Dose Admin Nitroglycerin 0.4 mg Q5MINP PRN SL 06/04/24 10:15 Morphine Sulfate 2 mg Q30M PRN IV 06/04/24 10:15 Acetaminophen 650 mg Q6HP PRN PO 06/04/24 10:30 Ondansetron HCl 4 mg Q4HPRN PRN IV 06/04/24 10:30 06/08/24 15:10 4 MG Diagnostic Test (Pha) 1 strip ACHS 06/04/24 11:30 06/09/24 11:53 1 STRIP Insulin Human Regular ACHS SC 06/04/24 11:30 06/09/24 12:30 4 UNITS Dextrose 50 ml UD PRN IV 06/04/24 10:30 Minoxidil 2.5 mg DAILY PO 06/05/24 10:00 06/09/24 10:58 2.5 MG Carvedilol 6.25 mg Q12HR PO 06/05/24 10:00 06/09/24 10:57 6.25 MG Clopidogrel Bisulfate 75 mg DAILY PO 06/05/24 10:00 06/09/24 10:56 75 MG Enoxaparin Sodium 40 mg DAILY SC 06/06/24 10:00 UNV Vancomycin HCl 250 mg QID PO 06/06/24 12:00 06/09/24 11:53 250 MG Saccharomyces Boulardii 250 mg BID PO 06/06/24 22:00 06/09/24 10:57 250 MG Metronidazole 100 ml @ 100 mls/hr Q8HR IV 06/06/24 22:00 06/09/24 05:54 100 MLS/HR Cholestyramine Resin 4 gm Q12HR@11,23 GT 06/08/24 11:00 06/08/24 11:37 4 GM Pantoprazole Sodium 40 mg DAILY@0600 PO 06/09/24 06:00 06/09/24 05:54 40 MG Acetaminophen/ Hydrocodone Bitart 1 tab Q6HPRN PRN PO 06/08/24 11:30 06/09/24 12:26 1 TAB Bupropion HCl 75 mg BID@07,19 PO 06/08/24 19:00 06/09/24 05:56 75 MG Donepezil HCl 5 mg HS PO 06/08/24 22:00 06/08/24 21:06 5 MG Nifedipine 30 mg DAILY PO 06/09/24 10:00 06/09/24 10:55 30 MG objective HEENT: No evidence of JVD, no oral ulcers. Pulmonary: Lungs are clear on auscultation bilaterally Cardiovascular S1-S2, no S3 or S4 Abdomen: Bowel sounds positive, soft no rebound tenderness Skin: No rash Neurological: Alert, oriented, no focal weakness laboratory and microbiology Laboratory Tests 06/09/24 05:24 06/07/24 06:18 Test 06/09/24 05:24 Range/Units Serum Glucose 76 74-106 mg/dL Assessment/Plan Delayed entry for visit June 08, 2024. Assessment ESKD on HD Diarrhea, C diff associated and Campylobacter Acute metabolic encephalopathy Hyponatremia COPD History of CHF Type 2 diabetes Hypertension Elevated troponin History of recent DVT of the right arm Plan/Recommendation Hemodialysis on TTS scheduled. Monitor electrolytes Infectious disease consultation Renally dose antibiotics. Lee for goal hemoglobin 10 to 11 grams/deciliter. Plan of care from Nephrology was discussed with the of the patient. Okay to discharge from Nephrology perspective. Thank you very much for allowing us to participate in the care of this patient. Dietary Evaluation Review Comments: 1 When medically feasible, advance to Renal standard 2 GNa 3K, Low phos diet 2. MONITOR PO INTAKE to meet at least 75% of his needs Expected Outcomes/Goals: no weight loss Plan discussed with: Patient MARVIN PRAKASH MD Jun 09, 2024 13:43
--- NOTE | 2024-06-09 13:43 | DVHPN2 ---
Progress Note - Dictate Date Seen: Jun 09, 2024 Has the PT tested + for MRSA If YES, has PT been informed?: Yes Medical Necessity Reason Pt with a Central, PICC or Fol: No Subjective Patient is feeling well he has no complaints his diarrhea is improved he says he wants to go home with possible. vital signs Vital Sign Date Time Temp Pulse Resp B/P (MAP) Pulse Ox O2 Delivery O2 Flow Rate FiO2 06/09/24 12:37 98.0 65 16 113/55 (74) 93 98.0 06/09/24 08:00 Nasal Cannula* 2 28 Total Intake and Output 06/08/24 06/08/24 06/09/24 15:00 23:00 07:00 Intake Total 700 ml 110 ml Output Total 0 ml Balance 700 ml 110 ml medications Current Medications Medications Dose Ordered Sig/Nereyda Route Start Time Stop Time Status Last Admin Dose Admin Nitroglycerin 0.4 mg Q5MINP PRN SL 06/04/24 10:15 Morphine Sulfate 2 mg Q30M PRN IV 06/04/24 10:15 Acetaminophen 650 mg Q6HP PRN PO 06/04/24 10:30 Ondansetron HCl 4 mg Q4HPRN PRN IV 06/04/24 10:30 06/08/24 15:10 4 MG Diagnostic Test (Pha) 1 strip ACHS 06/04/24 11:30 06/09/24 11:53 1 STRIP Insulin Human Regular ACHS SC 06/04/24 11:30 06/09/24 12:30 4 UNITS Dextrose 50 ml UD PRN IV 06/04/24 10:30 Minoxidil 2.5 mg DAILY PO 06/05/24 10:00 06/09/24 10:58 2.5 MG Carvedilol 6.25 mg Q12HR PO 06/05/24 10:00 06/09/24 10:57 6.25 MG Clopidogrel Bisulfate 75 mg DAILY PO 06/05/24 10:00 06/09/24 10:56 75 MG Enoxaparin Sodium 40 mg DAILY SC 06/06/24 10:00 UNV Vancomycin HCl 250 mg QID PO 06/06/24 12:00 06/09/24 11:53 250 MG Saccharomyces Boulardii 250 mg BID PO 06/06/24 22:00 06/09/24 10:57 250 MG Metronidazole 100 ml @ 100 mls/hr Q8HR IV 06/06/24 22:00 06/09/24 05:54 100 MLS/HR Cholestyramine Resin 4 gm Q12HR@11,23 GT 06/08/24 11:00 06/08/24 11:37 4 GM Pantoprazole Sodium 40 mg DAILY@0600 PO 06/09/24 06:00 06/09/24 05:54 40 MG Acetaminophen/ Hydrocodone Bitart 1 tab Q6HPRN PRN PO 06/08/24 11:30 06/09/24 12:26 1 TAB Bupropion HCl 75 mg BID@07,19 PO 06/08/24 19:00 06/09/24 05:56 75 MG Donepezil HCl 5 mg HS PO 06/08/24 22:00 06/08/24 21:06 5 MG Nifedipine 30 mg DAILY PO 06/09/24 10:00 06/09/24 10:55 30 MG objective HEENT: No evidence of JVD, no oral ulcers. Pulmonary: Lungs are clear on auscultation bilaterally Cardiovascular S1-S2, no S3 or S4 Abdomen: Bowel sounds positive, soft no rebound tenderness Skin: No rash Neurological: Alert, oriented, no focal weakness laboratory and microbiology Laboratory Tests 06/09/24 05:24 06/07/24 06:18 Test 06/09/24 05:24 Range/Units Serum Glucose 76 74-106 mg/dL Assessment/Plan Assessment ESKD on HD Diarrhea, C diff associated and Campylobacter Acute metabolic encephalopathy Hyponatremia COPD History of CHF Type 2 diabetes Hypertension Elevated troponin History of recent DVT of the right arm Plan/Recommendation Hemodialysis on TTS scheduled. Continue carvedilol, vancomycin p.o., rest of medications. Electrolytes WNL Infectious disease consultation On isolation. Renally dose antibiotics. Lee for goal hemoglobin 10 to 11 grams/deciliter. Okay to discharge from Nephrology perspective Thank you very much for allowing us to participate in the care of this patient. Dietary Evaluation Review Comments: 1 When medically feasible, advance to Renal standard 2 GNa 3K, Low phos diet 2. MONITOR PO INTAKE to meet at least 75% of his needs Expected Outcomes/Goals: no weight loss Plan discussed with: Patient MARVIN PRAKASH MD Jun 09, 2024 13:43
--- NOTE | 2024-06-09 15:29 | DVHPN2 ---
Progress Note Date Seen: Jun 09, 2024 Resident Creating Document: KEELY MARTELL RESIDENT Has the PT tested + for MRSA If YES, has PT been informed?: Yes Medical Necessity Reason Pt with a Central, PICC or Fol: No Subjective Review of Systems Since yesterday patient is doing well, total 4 bowel movement, more formed stool, no bleeding, this morning so the patient had 1 more watery bowel movement overall that improved with cholestyramine. Patient remains hemodynamically stable afebrile. Incereased cholestyramine. Objective vital signs Vital Sign Date Time Temp Pulse Resp B/P (MAP) Pulse Ox O2 Delivery O2 Flow Rate FiO2 06/09/24 12:37 98.0 65 16 113/55 (74) 93 98.0 06/09/24 08:00 Nasal Cannula* 2 28 Total Intake and Output 06/08/24 06/08/24 06/09/24 15:00 23:00 07:00 Intake Total 700 ml 110 ml Output Total 0 ml Balance 700 ml 110 ml medications Current Medications Medications Dose Ordered Sig/Nereyda Route Start Time Stop Time Status Last Admin Dose Admin Nitroglycerin 0.4 mg Q5MINP PRN SL 06/04/24 10:15 Morphine Sulfate 2 mg Q30M PRN IV 06/04/24 10:15 Acetaminophen 650 mg Q6HP PRN PO 06/04/24 10:30 Ondansetron HCl 4 mg Q4HPRN PRN IV 06/04/24 10:30 06/08/24 15:10 4 MG Diagnostic Test (Pha) 1 strip ACHS 06/04/24 11:30 06/09/24 11:53 1 STRIP Insulin Human Regular ACHS SC 06/04/24 11:30 06/09/24 12:30 4 UNITS Dextrose 50 ml UD PRN IV 06/04/24 10:30 Minoxidil 2.5 mg DAILY PO 06/05/24 10:00 06/09/24 10:58 2.5 MG Carvedilol 6.25 mg Q12HR PO 06/05/24 10:00 06/09/24 10:57 6.25 MG Clopidogrel Bisulfate 75 mg DAILY PO 06/05/24 10:00 06/09/24 10:56 75 MG Enoxaparin Sodium 40 mg DAILY SC 06/06/24 10:00 UNV Vancomycin HCl 250 mg QID PO 06/06/24 12:00 06/09/24 11:53 250 MG Saccharomyces Boulardii 250 mg BID PO 06/06/24 22:00 06/09/24 10:57 250 MG Metronidazole 100 ml @ 100 mls/hr Q8HR IV 06/06/24 22:00 06/09/24 14:28 100 MLS/HR Cholestyramine Resin 4 gm Q12HR@11,23 GT 06/08/24 11:00 06/08/24 11:37 4 GM Pantoprazole Sodium 40 mg DAILY@0600 PO 06/09/24 06:00 06/09/24 05:54 40 MG Acetaminophen/ Hydrocodone Bitart 1 tab Q6HPRN PRN PO 06/08/24 11:30 06/09/24 12:26 1 TAB Bupropion HCl 75 mg BID@07,19 PO 06/08/24 19:00 06/09/24 05:56 75 MG Donepezil HCl 5 mg HS PO 06/08/24 22:00 06/08/24 21:06 5 MG Nifedipine 30 mg DAILY PO 06/09/24 10:00 06/09/24 10:55 30 MG Examination GENERAL APPEARANCE: Well developed, well nourished, alert and cooperative, and appears to be in no acute distress. HEENT: wnl CARDIAC: Normal S1 and S2. No S3, S4 or murmurs. Rhythm is regular. There is no peripheral edema, cyanosis or pallor. Extremities are warm and well perfused. Capillary refill is less than 2 seconds. No carotid bruits. LUNGS: Clear to auscultation and percussion without rales, rhonchi, wheezing or diminished breath sounds. ABDOMEN: Positive bowel sounds. Soft, nondistended, nontender. No guarding or rebound. No masses. no guarding. MSK: WNL NEUROLOGICAL: CN II-XII intact. Strength and sensation symmetric and intact throughout. Reflexes 2+ throughout. Cerebellar testing normal. SKIN: Skin normal color, texture and turgor with no lesions or eruptions. PSYCHIATRIC: The mental examination revealed the patient was oriented to person, place, and time. The patient was able to demonstrate good judgement and reason, without hallucinations, abnormal affect or abnormal behaviors during the examination. Patient is not suicidal. laboratory and microbiology Laboratory Tests 06/09/24 05:24 06/07/24 06:18 Test 06/09/24 05:24 Range/Units Serum Glucose 76 74-106 mg/dL Microbiology Date/Time Source Procedure Growth Status 06/05/24 23:30 Nose MRSA Screen - Final Complete 06/04/24 14:40 Stool Stool Culture - Final Complete 06/04/24 14:40 Stool Shiga Toxin I & II - Final Complete 06/04/24 14:40 Stool Clostridium difficile Toxin Assay - Final Complete Labs and/or images reviewed: Labs reviewed by me, Image(s) reviewed by me Problem List/Assessment/Plan Problem List/Assessment/Plan Reasons for consultation: C Diff colitis. Hospitalization Summary: Mr. Honeycutt, a 78-year-old male with a history of CAD status post stent, HFpEF, previously needed spacer, HTN, COPD, GI bleed, anxiety, diabetes, end-stage renal disease on hemodialysis presented with diarrhea for three days and became altered and lethargic after dialysis. He recently had C. diff colitis treated with vancomycin, but the diarrhea returned. Currently, he is at his baseline, answering questions, unremarkable abdomen with continued loose stool while having stable vital signs and receiving in-hospital hemodialysis. Bowel output improved. Patient is hemodynamically stable and stable to discharge from GI standpoint. Abdomen remained soft and non-tender. Continue in-hospital dialysis. GI Assessment: #GI bleed history, FOBT negative #recent history of C diff infection, toxicology neck C diff DNA detected. #Campylobacter jejuni infection/gastroenteritis: Campylobacter antigen detected. #hepatitis C antibody reactive #continued watery diarrhea 3 times over past 24 hours (improved to 4 bowel movements yesterday) #history of CAD status post stent #HFpEF #micra device in situ #essential HTN #COPD #chronic hypoxic respiratory failure #anxiety #diabetes mellitus type 2 #end-stage renal disease on hemodialysis #mild hyponatremia #Anemia of chronic disease GI Plan: #Medications: Continue vancomycin p.o. 250 mg p.o. q.i.d., Florastor 250 mg p.o. b.i.d., continue metronidazole IV q.8 hours. continue b.i.d. #Labs: Stool culture to follow, daily CBC with diff. #Diet: started mechanical soft diet. Advance diet as tolerated. #please scheduled follow up with GI as outpatient with Dr. María Moreno. Thank you so much for the opportunity to consult on your patient. GI team will sign off the patient. In case of any questions or concerns please feel free to reach out. Case and action plan discussed with Dr. Maliha Moreon. Complex care planning needed total 43 minutes of detailed discussion. The patient and caregiver team agreed to the plan. Plan discussed with: Patient, Other Dietary Evaluation Review Comments: 1 When medically feasible, advance to Renal standard 2 GNa 3K, Low phos diet 2. MONITOR PO INTAKE to meet at least 75% of his needs Expected Outcomes/Goals: no weight loss KEELY MARTELL RESIDENT Jun 09, 2024 15:29
--- NOTE | 2024-06-09 23:44 | DVHPN2 ---
Progress Note - Dictate Date Seen: Jun 09, 2024 Has the PT tested + for MRSA If YES, has PT been informed?: Yes Medical Necessity Reason Pt with a Central, PICC or Fol: No Subjective Patient seen and examined at bedside. Remains on supplemental oxygen Overnight events reviewed. vital signs Vital Sign Date Time Temp Pulse Resp B/P (MAP) Pulse Ox O2 Delivery O2 Flow Rate FiO2 06/09/24 21:26 56 110/52 06/09/24 21:00 97.1 19 99 97.1 06/09/24 20:00 Nasal Cannula* 2 28 Total Intake and Output 06/08/24 06/08/24 06/09/24 15:00 23:00 07:00 Intake Total 700 ml 110 ml Output Total 0 ml Balance 700 ml 110 ml medications Current Medications Medications Dose Ordered Sig/Nereyda Route Start Time Stop Time Status Last Admin Dose Admin Nitroglycerin 0.4 mg Q5MINP PRN SL 06/04/24 10:15 Morphine Sulfate 2 mg Q30M PRN IV 06/04/24 10:15 Acetaminophen 650 mg Q6HP PRN PO 06/04/24 10:30 Ondansetron HCl 4 mg Q4HPRN PRN IV 06/04/24 10:30 06/08/24 15:10 4 MG Diagnostic Test (Pha) 1 strip ACHS 06/04/24 11:30 06/09/24 21:42 1 STRIP Insulin Human Regular ACHS SC 06/04/24 11:30 06/09/24 12:30 4 UNITS Dextrose 50 ml UD PRN IV 06/04/24 10:30 Minoxidil 2.5 mg DAILY PO 06/05/24 10:00 06/09/24 10:58 2.5 MG Carvedilol 6.25 mg Q12HR PO 06/05/24 10:00 06/09/24 21:26 6.25 MG Clopidogrel Bisulfate 75 mg DAILY PO 06/05/24 10:00 06/09/24 10:56 75 MG Enoxaparin Sodium 40 mg DAILY SC 06/06/24 10:00 UNV Vancomycin HCl 250 mg QID PO 06/06/24 12:00 06/09/24 21:25 250 MG Saccharomyces Boulardii 250 mg BID PO 06/06/24 22:00 06/09/24 21:25 250 MG Metronidazole 100 ml @ 100 mls/hr Q8HR IV 06/06/24 22:00 06/09/24 21:26 100 MLS/HR Cholestyramine Resin 4 gm Q12HR@11,23 GT 06/08/24 11:00 06/08/24 11:37 4 GM Pantoprazole Sodium 40 mg DAILY@0600 PO 06/09/24 06:00 06/09/24 05:54 40 MG Acetaminophen/ Hydrocodone Bitart 1 tab Q6HPRN PRN PO 06/08/24 11:30 06/09/24 18:29 1 TAB Bupropion HCl 75 mg BID@07,19 PO 06/08/24 19:00 06/09/24 18:25 75 MG Donepezil HCl 5 mg HS PO 06/08/24 22:00 06/09/24 21:25 5 MG Nifedipine 30 mg DAILY PO 06/09/24 10:00 06/09/24 10:55 30 MG objective Gen.: Patient lying in bed in no apparent distress. On supplemental oxygen. Head: Normocephalic, atraumatic. Eyes: EOMI/PERRLA. Ears: Normal hearing. Normal anatomy. Neck/trachea: Trachea midline, supple. Nose: Normal external anatomy. Mouth: Moist mucous membranes. Chest: Decreased air entry bilaterally. No wheezing or rhonchi. Cardiovascular: Positive S1, positive S2. Regular rate and rhythm. Abdomen: Positive bowel sounds in all 4 quadrants. Soft, non-tender, non- distended. : Deferred. Rectal: Deferred. Skin: Warm, dry. Intact. Extremities: 2+ radial pulses bilaterally. No lower extremity edema. Neuro: Awake, alert, oriented x3. No gross motor or sensory deficits. Cranial nerves II through XII intact. Gait not assessed. laboratory and microbiology Laboratory Tests 06/09/24 05:24 06/07/24 06:18 Test 06/09/24 05:24 Range/Units Serum Glucose 76 74-106 mg/dL Assessment/Plan Impression: Acute metabolic encephalopathy COPD Atelectasis Elevated troponin Chronic hypoxic respiratory failure Dependence on supplemental oxygen Clostridium difficile End-stage renal disease, on hemodialysis Elevated d-dimer, ruled out PE and DVT Events: Remains on supplemental oxygen, 2 LPM NC Taper O2 as tolerated Continue bronchodilators PRN Continue antibiotics Incentive spirometry Monitor WBC Less frequent bowel movements, improving. HD per Nephrology - s/p HD yesterday Monitor renal function Labs and imaging reviewed. Rest of plan as noted below. Plan: Supplemental oxygen Titrate to keep O2 sats above 92%. Taper O2 as tolerated. Ultrasound venous Doppler of bilateral lower extremities reveals no e/o DVT. CTA of chest showed no PE. Notable for atelectasis in bilateral lower lobes. Continue bronchodilators PRN Incentive spirometry for atelectasis Accu-Cheks, ISS. Monitor renal function. Monitor electrolytes. Supplement as necessary. Monitor ins and outs. GI prophylaxis - Protonix DVT prophylaxis. Prognosis: Poor given patient's multiple co-morbidities. Rest of plan per hospitalist and other consultants. Thank you, Dr. Stinson, for allowing me to participate in this patient's care. Further recommendations will depend on the patient's clinical course. Please do not hesitate to contact me if you have any questions or concerns. This medical document was created using an electronic medical record system with [employer] dictation system. Although these documentations are being carefully reviewed, there may still be some phonetic and typographical changes. The errors are purely typographical, due to imperfection on the software program, and do not reflect any compromise in the patient's medical care. Dietary Evaluation Review Comments: 1 When medically feasible, advance to Renal standard 2 GNa 3K, Low phos diet 2. MONITOR PO INTAKE to meet at least 75% of his needs Expected Outcomes/Goals: no weight loss Plan discussed with: Patient, Other (HANS Interiano) JUAN SALDAÑA MD Jun 09, 2024 23:44
[2024-06-10 05:00] VITALS: BP 146/64; PULSE 56; RESP 18; TEMP 97.3; O2SAT 99
[2024-06-10] MEDS ORDERED: SODIUM CHL 0.9% 1000 ML BAG XX ONE (07:00)
[2024-06-10 08:33] VITALS: BP 143/63; PULSE 57; RESP 17; TEMP 97.4; O2SAT 98
[2024-06-10] MEDS ORDERED: PANT40TA2 PO (10:25)
[2024-06-10] MEDS ORDERED: VANC125C3 PO (10:25)
[2024-06-10] MEDS ORDERED: INS7030I SC (10:27)
--- NOTE | 2024-06-10 10:28 | DVHDS2 ---
Discharge Summary Date of Admission Jun 04, 2024 at 10:02 Date of Discharge: Jun 04, 2024 Labs/Diagnostic Data: Laboratory Results Test 06/10/24 06:12 06/09/24 05:24 06/08/24 05:18 06/07/24 06:18 POC Glucose 99 mg/dl (70-106) Sodium Level 136 mmol/L (136-145) Potassium Level 3.6 mmol/L (3.5-5.1) Chloride Level 101 mmol/L (98-107) Carbon Dioxide Level 25 mmol/L (20-31) Anion Gap 10 (5-15) Blood Urea Nitrogen 28 mg/dL (9-23) Creatinine 7.01 mg/dL (0.700-1.30) Glomerular Filtration Rate Calc 7 mL/min (>90) BUN/Creatinine Ratio 4.0 (10.0-20.0) Serum Glucose 76 mg/dL (74-106) Calcium Level 8.9 mg/dL (8.7-10.4) Magnesium Level 2.0 mg/dL (1.6-2.6) White Blood Count 6.0 10^3/uL (4.4-10.8) Red Blood Count 4.29 10^6/uL (4.5-5.90) Hemoglobin 12.4 g/dL (13.5-17.5) Hematocrit 37.9 % (41.0-53.0) Mean Corpuscular Volume 88.5 fL (80.0-100.0) Mean Corpuscular Hemoglobin 28.8 pg (28.0-32.0) Mean Corpuscular Hemoglobin Concent 32.6 g/dL (32.0-36.0) Red Cell Distribution Width 20.4 % (11.8-14.3) Platelet Count 183 10^3/uL (140-450) Mean Platelet Volume 8.0 fL (6.9-10.8) Neutrophils (%) (Auto) 69.3 % (37.0-80.0) Lymphocytes (%) (Auto) 11.3 % (10.0-50.0) Monocytes (%) (Auto) 16.5 % (0.0-12.0) Eosinophils (%) (Auto) 2.7 % (0.0-7.0) Basophils (%) (Auto) 0.2 % (0.0-2.0) Neutrophils # (Auto) 4.2 10 ^3/uL (1.6-8.6) Lymphocytes # (Auto) 0.7 10 ^3/uL (0.4-5.4) Monocytes # (Auto) 1.0 10 ^3/uL (0-1.3) Eosinophils # (Auto) 0.2 10 ^3/uL (0-0.8) Basophils # (Auto) 0 10 ^3/uL (0-0.2) Nucleated Red Blood Cells 0.1 % Test 06/05/24 06:00 06/04/24 14:40 06/04/24 10:45 06/03/24 22:35 Total Bilirubin 0.2 mg/dL (0.2-1.0) Aspartate Amino Transferase (AST) 17 U/L (13-40) Alanine Aminotransferase (ALT) < 9 U/L (7-40) Alkaline Phosphatase 70 U/L (46-116) Total Protein 6.8 g/dL (5.7-8.2) Albumin 3.5 g/dL (3.2-4.8) Stool Occult Blood Negative (Negative) Stool Occult Blood Sample #3 (Negative) Stool for White Cells Few Platelet Estimate Adequate Anisocytosis (manual) Slight Troponin I High Sensitivity 80 ng/L (</=54) Test 06/03/24 21:46 06/03/24 19:40 Lactic Acid Level 2.5 mmol/L (0.4-2.0) D-Dimer, Quantitative 2.19 mg/L FEU (0.0-0.49) B-Type Natriuretic Peptide 632.96 pg/mL (0-100) Other Laboratory Tests 06/09/24 05:24 06/07/24 06:18 Brief Hx & Hospital Course: Final diagnoses: C diff colitis with Recent C diff colitis Acute metabolic encephalopathy Sick sinus syndrome status post pacemaker End-stage renal disease on hemodialysis COPD on home O2 Acute on chronic hypoxic respiratory failure Chronic respiratory failure on home O2 History of CHF Type 2 diabetes Hypertension Possible underlying dementia Chronic anemia of chronic kidney disease Elevated troponin Mild pulmonary edema History of recent DVT of the right arm History of mastoiditis He was given po Vanco Improved mentation Today doing well Will have HD then can go home Will be on Vancomycin 125 mg po qid x 2 weeks Condition at Discharge: Stable Final Diagnosis/Problems List C. Diff colitis Acute metabolic encephalopathy Underlying dementia End-stage renal disease Generalized weakness Hypertension Type 2 diabetes COPD on home O2 Discharge Disposition: Home SNF Discharge Will this Physician continue t: No Discharge Instruct/Medications Diet: Cardiac 2g Na,low cholest, Renal Activity: No Restrictions, As Tolerated Follow Up/Referral: PCP as soon as possible Hemodialysis as scheduled Medications: Resume the home medications Vancomycin 250 mg qid x 2 weeks Discharge Statement: "Patient was advised to return to the ER or call 911 if any headaches, dizziness, shortness of breath, chest pain, abdominal pain, bleeding, fevers, or worsening of medical condition. Patient was counseled about treatment plan, medications, possible side effects, patientverbalized understanding. All questions were answered to the best of my ability. This discharge took greater then 30 minutes in planning, reviewing documentation, counseling the patient, and discussing with other team members." ASSESSMENT ASSESSMENT Assessment C. Diff colitis Acute metabolic encephalopathy Underlying dementia End-stage renal disease Generalized weakness Hypertension Type 2 diabetes COPD on home O2 Date of Service: Jun 10, 2024 Billing Provider: PETER LAMAR MD Common Visit Codes: NOT BILLABLE PETER LAMAR MD Jun 10, 2024 10:28
[2024-06-10 11:48] VITALS: BP 162/71; PULSE 54; RESP 18; TEMP 97.1; O2SAT 92
--- NOTE | 2024-06-10 12:57 | DVHPN2 ---
Progress Note - Dictate Date Seen: Jun 10, 2024 Has the PT tested + for MRSA If YES, has PT been informed?: Yes Medical Necessity Reason Pt with a Central, PICC or Fol: No vital signs Vital Sign Date Time Temp Pulse Resp B/P (MAP) Pulse Ox O2 Delivery O2 Flow Rate FiO2 06/10/24 11:48 97.1 54 18 162/71 (101) 92 97.1 06/10/24 08:00 Nasal Cannula* 2 28 Total Intake and Output 06/09/24 06/09/24 06/10/24 15:00 23:00 07:00 Intake Total 470 ml 375 ml 500 ml Balance 470 ml 375 ml 500 ml medications Current Medications Medications Dose Ordered Sig/Nereyda Route Start Time Stop Time Status Last Admin Dose Admin Nitroglycerin 0.4 mg Q5MINP PRN SL 06/04/24 10:15 Morphine Sulfate 2 mg Q30M PRN IV 06/04/24 10:15 Acetaminophen 650 mg Q6HP PRN PO 06/04/24 10:30 Ondansetron HCl 4 mg Q4HPRN PRN IV 06/04/24 10:30 06/08/24 15:10 4 MG Diagnostic Test (Pha) 1 strip ACHS 06/04/24 11:30 06/10/24 11:50 1 STRIP Insulin Human Regular ACHS SC 06/04/24 11:30 06/10/24 11:52 2 UNITS Dextrose 50 ml UD PRN IV 06/04/24 10:30 Minoxidil 2.5 mg DAILY PO 06/05/24 10:00 06/09/24 10:58 2.5 MG Carvedilol 6.25 mg Q12HR PO 06/05/24 10:00 06/09/24 21:26 6.25 MG Clopidogrel Bisulfate 75 mg DAILY PO 06/05/24 10:00 06/10/24 09:23 75 MG Enoxaparin Sodium 40 mg DAILY SC 06/06/24 10:00 UNV Vancomycin HCl 250 mg QID PO 06/06/24 12:00 06/10/24 11:50 250 MG Saccharomyces Boulardii 250 mg BID PO 06/06/24 22:00 06/10/24 09:23 250 MG Metronidazole 100 ml @ 100 mls/hr Q8HR IV 06/06/24 22:00 06/10/24 06:04 100 MLS/HR Cholestyramine Resin 4 gm Q12HR@11,23 GT 06/08/24 11:00 06/08/24 11:37 4 GM Pantoprazole Sodium 40 mg DAILY@0600 PO 06/09/24 06:00 06/10/24 06:04 40 MG Acetaminophen/ Hydrocodone Bitart 1 tab Q6HPRN PRN PO 06/08/24 11:30 06/10/24 04:15 1 TAB Bupropion HCl 75 mg BID@07,19 PO 06/08/24 19:00 06/10/24 06:04 75 MG Donepezil HCl 5 mg HS PO 06/08/24 22:00 06/09/24 21:25 5 MG Nifedipine 30 mg DAILY PO 06/09/24 10:00 06/09/24 10:55 30 MG laboratory and microbiology Laboratory Tests 06/09/24 05:24 06/07/24 06:18 Test 06/09/24 05:24 Range/Units Serum Glucose 76 74-106 mg/dL Assessment/Plan Patient is a 78-year-old gentleman who presented the hospital with altered level of consciousness. Reportedly, the patient woke up altered and confused and the family decided to bring him to the hospital. Since admission, there was a question about bradycardia (if pacemaker is working correctly?). It is of note that the patient did have diarrhea for few days prior to presentation and has had recent C diff colitis for which has been treated. Cardiology is involved for cardiac as base of care. Patient is known to our practice from before. He does have history of coronary artery disease and has had stent last year. Serial troponin has only been minimally elevated and flat. Patient does have history of pacemaker (micro/Medtronic) implantation. Has had DVT before and was treated for sepsis in prior admissions. He was previously kept on aspirin/Eliquis (has history of anemia and blood transfusions). Later, as he could not tolerate anticoagulation, he was kept on Plavix daily. Does have history of end-stage renal disease and is on hemodialysis. Frail gentleman, pale and wet mucosa. No carotid bruit, no goiter. Lungs: Scattered rhonchi in the lungs, cardiac: Regular, systolic murmur in the apex is heard. Abdomen is soft and distended. Bowel sound is positive. There is no gross mass. Extremities reveal 1+ edema bilaterally. Dorsalis pedis is 2+ bilateral. Past medical history includes end-stage renal disease on hemodialysis, old history of CVA (2019), poor functional capacity, coronary artery disease and status post PCI (last stent in July 2023, ostial LAD), COPD, obstructive sleep apnea, diabetes mellitus, hypertension, anemia (history of repeated transfusions), CHF, SVT, pulmonary hypertension (considered type 2), history of pancytopenia (resolved later), history of DVT in upper extremity, repeated/significant GI bleedings and ex-smoker. Past medical history also includes DVT in the right upper extremity, history of septic shock, history of pneumonia, sick sinus syndrome and status post pacemaker (Micra/Medtronic) implantation. Echocardiogram of January 2024 had revealed: Ejection fraction of 40-45%, anterior/anteroseptal hypokinesia, biatrial enlargement, right ventricular systolic pressure 45 mm Hg. Echocardiogram October 28, 2023 had revealed mild concentric left ventricular hypertrophy, LVEF of 52% with mild diffuse hypokinesis, dilated RV/LA/RA, xydc-ct-icrpsayg aortic insufficiency, mild MR, moderate TR and right ventricular systolic pressure of 60 mm Hg Echocardiogram of November 08, 2023 (performed in [facility]) had reported: LVEF of 50%, zupwvite-fe-vvleia TR, mild aortic insufficiency and right ventricular systolic pressure of 49 mm Hg Echocardiogram of September 15, 2023 (performed and [facility]) revealed ejection fraction of 45-50% Echocardiogram of March 22, 2023 (performed in the office) revealed ejection fraction of 65-70%, mild concentric left ventricular hypertrophy, moderate biatrial enlargement, ztaa-ju-aonasmhj MR/TR, mild AI/PI and right ventricular systolic pressure of 66 mm Hg. Left heart catheterization on August 04, 2023 revealed: 1 vessel coronary artery disease and status post PCI (drug-eluting stent deployment of ostial LAD, LVEF of 60% with increased LVEDP, patent stent in mid LAD, type 2 pulmonary hypertension. Creatinine: 5.13 - 6.53 - 8.08 - 6.92 - 8.50 - 7.01 Potassium: 4.3 - 3.9 - 4.0 - 3.4 - 3.7 - 3.6 Sodium: 133 - 132 - 131 - 134 - 131 - 136 Lactic acid: 2.2 - 2.5 D-dimer: 2.19 Troponin (high sensitive): 76 - 78 - 80 BNP: 632.96 Stool is positive for CDT toxin Chest x-ray reviewed: IMPRESSION: 1. Probable mild interstitial pulmonary edema. CT of the head revealed: IMPRESSION: 1. No acute intracranial abnormality. CT angiography showed lungs are revealed: 1. Evaluation of the pulmonary arteries is limited secondary to poor contrast bolus timing. There is no obvious pulmonary arterial filling defect to suggest pulmonary embolism. 2. Scarring versus atelectasis in the bilateral lower lobes. Venous duplex of lower extremities revealed: IMPRESSION: 1. There is no sonographic evidence for DVT in the lower extremities. EKG reveals sinus rhythm with occasions of paced ventricular rhythm Repeat EKG questions PAT Tele reveals sinus rhythm with paced ventricular Echocardiogram reported: Left ventricle: Mild concentric left ventricular hypertrophy was seen. LVEF was 45-50%. Right ventricle was normal sized with normal systolic function. Both atria were mildly dilated. Aortic valve: Aortic valve was trileaflet. There was mild aortic insufficiency. There was no aortic stenosis. There was trivial mitral regurgitation. There was mild tricuspid regurgitation. Pulmonary valve was not well visualized. Right ventricular systolic pressure was assessed around 48 mm Hg. There was no pericardial effusion. IVC was not well visualized. Pacemaker (Medtronic/Micra) interrogation: Battery voltage: 3.03 volts; Remaining longevity: More than eight years; Electrode impedance: 820 Ohms; Capture threshold: 0.38 volts @ 0.24 milliseconds; Programmed amplitude/pulse width: 0.88 volts/0.24 milliseconds; AM-CLINICAL TEAM LEAD: 1.4%; CLINICAL TEAM LEAD only: 4.2%; VDD: 55/105; Normal functioning pacemaker Patient is a 78-year-old gentleman who presented with shortness of breath. There was question if patient has significant bradycardia. It is of note the patient does have pacemaker (micro/Medtronic). Patient's pacemaker was interrogated last in May 18, 2024 in the office and was working perfectly at that time. Reinterrogation of the pacemaker can be justified. Patient has history of DVT for which was on Eliquis previously but could not tolerate it (repeated GI bleeding). Patient does have history of coronary artery disease and has had stents in the LAD. He has been kept on Plavix as outpatient at this point. It is also of note that the patient does have pulmonary hypertension which could have contributed to the clinical picture and abnormal troponin. His compliance on medication it is questionable. Pacemaker interrogation revealed normal functioning pacemaker. Acute respiratory failure Acute on chronic heart failure (possibly diastolic) Coronary artery disease, status post PCI Abnormal troponin, considered demand physiology at this point Pulmonary hypertension, type 2 End-stage renal disease on hemodialysis History of DVT, history of Abnormal D-dimer, pulmonary emboli was ruled out by CT angiography of the lungs Internal Jugular and subclavian DVT, hold s/p GI bleeding, old s/p arrest (post GI bleeding), old Acute PE was ruled out CDT colitis Cardiac suggestion for management: Manage in tele Follow-up electrolytes and kidney function tests and correct abnormalities. Continuation of beta-louie (carvedilol at 6.25 mg twice daily) suggested Continue Plavix Hemodialysis as per Nephrology Evaluation and management of CDT colitis as per primary team/ID Cardiac purdy, stable Further evaluation and management depends on the above and clinical course A total of 55 minutes was spent reviewing the patient record, examining the patient, making a diagnostic and therapeutic plan, discussing this plan with medical personnel, following up on diagnostic studies and following the patient for clinical stability excluding any and all procedures. At least 50% of this time was spent in direct, [id number] contact. Thank you for allowing me to participate in this patient's care. Further recommendations will depend on patient's clinical course. Please do not hesitate to contact me if you have any questions or concerns. This medical document was created using electronic medical record system with [employer] computerized dictation system. Although this document has been carefully reviewed, there may still be some phonetic and typographical errors. These areas are purely typographical due to the imperfection of the software programs, and do not reflect any compromise in the patient's medical care. Dietary Evaluation Review Comments: 1 When medically feasible, advance to Renal standard 2 GNa 3K, Low phos diet 2. MONITOR PO INTAKE to meet at least 75% of his needs Expected Outcomes/Goals: no weight loss Plan discussed with: Patient, Other (nurse) NICOLE KERNS MD Jun 10, 2024 12:57
--- NOTE | 2024-06-10 14:52 | DVHPN2 ---
Progress Note - Dictate Date Seen: Jun 10, 2024 Has the PT tested + for MRSA If YES, has PT been informed?: Yes Medical Necessity Reason Pt with a Central, PICC or Fol: No Subjective Patient diarrhea is resolved he has no complaints. vital signs Vital Sign Date Time Temp Pulse Resp B/P (MAP) Pulse Ox O2 Delivery O2 Flow Rate FiO2 06/10/24 11:48 97.1 54 18 162/71 (101) 92 97.1 06/10/24 08:00 Nasal Cannula* 2 28 Total Intake and Output 06/09/24 06/09/24 06/10/24 15:00 23:00 07:00 Intake Total 470 ml 375 ml 500 ml Balance 470 ml 375 ml 500 ml medications Current Medications Medications Dose Ordered Sig/Nereyda Route Start Time Stop Time Status Last Admin Dose Admin Nitroglycerin 0.4 mg Q5MINP PRN SL 06/04/24 10:15 Morphine Sulfate 2 mg Q30M PRN IV 06/04/24 10:15 Acetaminophen 650 mg Q6HP PRN PO 06/04/24 10:30 Ondansetron HCl 4 mg Q4HPRN PRN IV 06/04/24 10:30 06/08/24 15:10 4 MG Diagnostic Test (Pha) 1 strip ACHS 06/04/24 11:30 06/10/24 11:50 1 STRIP Insulin Human Regular ACHS SC 06/04/24 11:30 06/10/24 11:52 2 UNITS Dextrose 50 ml UD PRN IV 06/04/24 10:30 Minoxidil 2.5 mg DAILY PO 06/05/24 10:00 06/09/24 10:58 2.5 MG Carvedilol 6.25 mg Q12HR PO 06/05/24 10:00 06/09/24 21:26 6.25 MG Clopidogrel Bisulfate 75 mg DAILY PO 06/05/24 10:00 06/10/24 09:23 75 MG Enoxaparin Sodium 40 mg DAILY SC 06/06/24 10:00 UNV Vancomycin HCl 250 mg QID PO 06/06/24 12:00 06/10/24 11:50 250 MG Saccharomyces Boulardii 250 mg BID PO 06/06/24 22:00 06/10/24 09:23 250 MG Metronidazole 100 ml @ 100 mls/hr Q8HR IV 06/06/24 22:00 06/10/24 06:04 100 MLS/HR Cholestyramine Resin 4 gm Q12HR@11,23 GT 06/08/24 11:00 06/08/24 11:37 4 GM Pantoprazole Sodium 40 mg DAILY@0600 PO 06/09/24 06:00 06/10/24 06:04 40 MG Acetaminophen/ Hydrocodone Bitart 1 tab Q6HPRN PRN PO 06/08/24 11:30 06/10/24 04:15 1 TAB Bupropion HCl 75 mg BID@07,19 PO 06/08/24 19:00 06/10/24 06:04 75 MG Donepezil HCl 5 mg HS PO 06/08/24 22:00 06/09/24 21:25 5 MG Nifedipine 30 mg DAILY PO 06/09/24 10:00 06/09/24 10:55 30 MG objective HEENT: No evidence of JVD, no oral ulcers. Pulmonary: Lungs are clear on auscultation bilaterally Cardiovascular S1-S2, no S3 or S4 Abdomen: Bowel sounds positive, soft no rebound tenderness Skin: No rash Neurological: Alert, oriented, no focal weakness laboratory and microbiology Laboratory Tests 06/09/24 05:24 06/07/24 06:18 Test 06/09/24 05:24 Range/Units Serum Glucose 76 74-106 mg/dL Assessment/Plan Assessment ESKD on HD Diarrhea, C diff associated and Campylobacter Acute metabolic encephalopathy Hyponatremia COPD History of CHF Type 2 diabetes Hypertension Elevated troponin History of recent DVT of the right arm Plan/Recommendation Hemodialysis today was completed 2.5 L UF achieved Continue carvedilol, vancomycin p.o., rest of medications. Electrolytes WNL Infectious disease consultation On isolation. Renally dose antibiotics. Lee for goal hemoglobin 10 to 11 grams/deciliter. Okay to discharge from Nephrology perspective Thank you very much for allowing us to participate in the care of this patient. Dietary Evaluation Review Comments: 1 When medically feasible, advance to Renal standard 2 GNa 3K, Low phos diet 2. MONITOR PO INTAKE to meet at least 75% of his needs Expected Outcomes/Goals: no weight loss Plan discussed with: Patient MARVIN PRAKASH MD Jun 10, 2024 14:52
--- NOTE | 2024-06-10 15:22 | DVHPN2 ---
Progress Note - Dictate Date Seen: Jun 10, 2024 Has the PT tested + for MRSA If YES, has PT been informed?: Yes Medical Necessity Reason Pt with a Central, PICC or Fol: No Subjective No new complaints Diarrhea is improving , 3-4 bowel movements recorded which were not watery No abdominal pain Patient is tolerating a diet Patient underwent dialysis and 2.5 L of fluid was removed vital signs Vital Sign Date Time Temp Pulse Resp B/P (MAP) Pulse Ox O2 Delivery O2 Flow Rate FiO2 06/10/24 11:48 97.1 54 18 162/71 (101) 92 97.1 06/10/24 08:00 Nasal Cannula* 2 28 Total Intake and Output 06/09/24 06/09/24 06/10/24 15:00 23:00 07:00 Intake Total 470 ml 375 ml 500 ml Balance 470 ml 375 ml 500 ml medications Current Medications Medications Dose Ordered Sig/Nereyda Route Start Time Stop Time Status Last Admin Dose Admin Nitroglycerin 0.4 mg Q5MINP PRN SL 06/04/24 10:15 Morphine Sulfate 2 mg Q30M PRN IV 06/04/24 10:15 Acetaminophen 650 mg Q6HP PRN PO 06/04/24 10:30 Ondansetron HCl 4 mg Q4HPRN PRN IV 06/04/24 10:30 06/08/24 15:10 4 MG Diagnostic Test (Pha) 1 strip ACHS 06/04/24 11:30 06/10/24 11:50 1 STRIP Insulin Human Regular ACHS SC 06/04/24 11:30 06/10/24 11:52 2 UNITS Dextrose 50 ml UD PRN IV 06/04/24 10:30 Minoxidil 2.5 mg DAILY PO 06/05/24 10:00 06/09/24 10:58 2.5 MG Carvedilol 6.25 mg Q12HR PO 06/05/24 10:00 06/09/24 21:26 6.25 MG Clopidogrel Bisulfate 75 mg DAILY PO 06/05/24 10:00 06/10/24 09:23 75 MG Enoxaparin Sodium 40 mg DAILY SC 06/06/24 10:00 UNV Vancomycin HCl 250 mg QID PO 06/06/24 12:00 06/10/24 11:50 250 MG Saccharomyces Boulardii 250 mg BID PO 06/06/24 22:00 06/10/24 09:23 250 MG Metronidazole 100 ml @ 100 mls/hr Q8HR IV 06/06/24 22:00 06/10/24 06:04 100 MLS/HR Cholestyramine Resin 4 gm Q12HR@11,23 GT 06/08/24 11:00 06/08/24 11:37 4 GM Pantoprazole Sodium 40 mg DAILY@0600 PO 06/09/24 06:00 06/10/24 06:04 40 MG Acetaminophen/ Hydrocodone Bitart 1 tab Q6HPRN PRN PO 06/08/24 11:30 06/10/24 04:15 1 TAB Bupropion HCl 75 mg BID@07,19 PO 06/08/24 19:00 06/10/24 06:04 75 MG Donepezil HCl 5 mg HS PO 06/08/24 22:00 06/09/24 21:25 5 MG Nifedipine 30 mg DAILY PO 06/09/24 10:00 06/09/24 10:55 30 MG objective HEENT: WAQAR;EOMI intact Pulmonary: Lungs are clear on auscultation bilaterally Cardiovascular S1-S2, no S3 or S4 Abdomen: Bowel sounds positive, soft no rebound tenderness Skin: No rash Neurological: Alert, oriented, no focal weakness laboratory and microbiology Laboratory Tests 06/09/24 05:24 06/07/24 06:18 Test 06/09/24 05:24 Range/Units Serum Glucose 76 74-106 mg/dL Problems(with codes): (1) Campylobacter diarrhea (2) C. difficile diarrhea (3) End stage renal disease on dialysis Prognosis Plan Discharge planning is in progress Continue vancomycin 125 mg p.o. q.6 hours for one more week Continue probiotics Outpatient follow up with GI Services next available appointment to discuss elective colonoscopy Once again thank you for allowing me to participate in the care of this patient Dietary Evaluation Review Comments: 1 When medically feasible, advance to Renal standard 2 GNa 3K, Low phos diet 2. MONITOR PO INTAKE to meet at least 75% of his needs Expected Outcomes/Goals: no weight loss Plan discussed with: Patient, Other BEBO UP MD Jun 10, 2024 15:22
[2024-06-10 16:26] VITALS: BP 124/58; PULSE 64; RESP 18; TEMP 97.4; O2SAT 94
--- NOTE | 2024-06-10 22:51 | DVHPN2 ---
Progress Note - Dictate Date Seen: Jun 10, 2024 Has the PT tested + for MRSA If YES, has PT been informed?: Yes Medical Necessity Reason Pt with a Central, PICC or Fol: No Subjective Patient seen and examined at bedside. Remains on supplemental oxygen Overnight events reviewed. vital signs Vital Sign Date Time Temp Pulse Resp B/P (MAP) Pulse Ox O2 Delivery O2 Flow Rate FiO2 06/10/24 16:26 97.4 64 18 124/58 (80) 94 97.4 06/10/24 08:00 Nasal Cannula* 2 28 Total Intake and Output 06/09/24 06/09/24 06/10/24 15:00 23:00 07:00 Intake Total 470 ml 375 ml 500 ml Balance 470 ml 375 ml 500 ml medications Current Medications Medications Dose Ordered Sig/Nereyda Route Start Time Stop Time Status Last Admin Dose Admin Enoxaparin Sodium 40 mg DAILY SC 06/06/24 10:00 UNV objective Gen.: Patient lying in bed in no apparent distress. On supplemental oxygen. Head: Normocephalic, atraumatic. Eyes: EOMI/PERRLA. Ears: Normal hearing. Normal anatomy. Neck/trachea: Trachea midline, supple. Nose: Normal external anatomy. Mouth: Moist mucous membranes. Chest: Decreased air entry bilaterally. No wheezing or rhonchi. Cardiovascular: Positive S1, positive S2. Regular rate and rhythm. Abdomen: Positive bowel sounds in all 4 quadrants. Soft, non-tender, non- distended. : Deferred. Rectal: Deferred. Skin: Warm, dry. Intact. Extremities: 2+ radial pulses bilaterally. No lower extremity edema. Neuro: Awake, alert, oriented x3. No gross motor or sensory deficits. Cranial nerves II through XII intact. Gait not assessed. laboratory and microbiology Laboratory Tests 06/09/24 05:24 06/07/24 06:18 Test 06/09/24 05:24 Range/Units Serum Glucose 76 74-106 mg/dL Assessment/Plan Impression: Acute metabolic encephalopathy COPD Atelectasis Elevated troponin Chronic hypoxic respiratory failure Dependence on supplemental oxygen Clostridium difficile End-stage renal disease, on hemodialysis Elevated d-dimer, ruled out PE and DVT Events: Remains on supplemental oxygen, 2 LPM NC Taper O2 as tolerated S/p hemodialysis today - 2.5 L removed Continue bronchodilators PRN Continue antibiotics Incentive spirometry Monitor WBC HD per Nephrology Monitor renal function Patient is stable for discharge from the pulmonary standpoint. Labs and imaging reviewed. Rest of plan as noted below. Plan: Supplemental oxygen Titrate to keep O2 sats above 92%. Taper O2 as tolerated. Ultrasound venous Doppler of bilateral lower extremities reveals no e/o DVT. CTA of chest showed no PE. Notable for atelectasis in bilateral lower lobes. Continue bronchodilators PRN Incentive spirometry for atelectasis Accu-Cheks, ISS. Monitor renal function. Monitor electrolytes. Supplement as necessary. Monitor ins and outs. GI prophylaxis - Protonix DVT prophylaxis. Prognosis: Guarded given patient's multiple co-morbidities. Rest of plan per hospitalist and other consultants. Thank you, Dr. Stinson, for allowing me to participate in this patient's care. Further recommendations will depend on the patient's clinical course. Please do not hesitate to contact me if you have any questions or concerns. This medical document was created using an electronic medical record system with [employer] computerized dictation system. Although these documentations are being carefully reviewed, there may still be some phonetic and typographical changes. The errors are purely typographical, due to imperfection on the software program, and do not reflect any compromise in the patient's medical care. Dietary Evaluation Review Comments: 1 When medically feasible, advance to Renal standard 2 GNa 3K, Low phos diet 2. MONITOR PO INTAKE to meet at least 75% of his needs Expected Outcomes/Goals: no weight loss Plan discussed with: Patient, Other (HANS Miranda) JUAN SALDAÑA MD Jun 10, 2024 22:51
== END 2024-06-10 16:10 | disposition home or self-care (01) | DRG 371 ==
LOC: EDUNIT# 19:10 → ER 19:10 → EDBD 19:10 → TELE 06-04 10:02 → TELE-EAST 06-05 20:48 → EAST 06-06 19:52
PROVIDERS: ADMIT Internal Medicine Geriatric Medicine; ATTEND Internal Medicine Geriatric Medicine
PROC: 5A1D70Z Performance of Urinary Filtration, Intermittent, Less than 6 Hours Per Day (ICD-10-PCS; 2024-06-06)
PROC: 4B02XSZ Measurement of Cardiac Pacemaker, External Approach (ICD-10-PCS; principal; 2024-06-07)
PROC: 5A1D70Z Performance of Urinary Filtration, Intermittent, Less than 6 Hours Per Day (ICD-10-PCS; 2024-06-08)
DX: A04.72 Enterocolitis due to Clostridium difficile, not specified as recurrent (principal); G93.41 Metabolic encephalopathy; J96.21 Acute and chronic respiratory failure with hypoxia; N18.6 End stage renal disease; I50.33 Acute on chronic diastolic (congestive) heart failure; I13.2 Hypertensive heart and chronic kidney disease with heart failure and with stage 5 chronic kidney disease, or end stage renal disease; E87.1 Hypo-osmolality and hyponatremia; E87.20 Acidosis, unspecified; I24.9 Acute ischemic heart disease, unspecified; J98.11 Atelectasis; D63.1 Anemia in chronic kidney disease; E11.22 Type 2 diabetes mellitus with diabetic chronic kidney disease; I25.10 Atherosclerotic heart disease of native coronary artery without angina pectoris; J44.9 Chronic obstructive pulmonary disease, unspecified; I35.1 Nonrheumatic aortic (valve) insufficiency; I49.5 Sick sinus syndrome; I27.20 Pulmonary hypertension, unspecified; F03.90 Unspecified dementia, unspecified severity, without behavioral disturbance, psychotic disturbance, mood disturbance, and anxiety; D63.8 Anemia in other chronic diseases classified elsewhere; Z88.8 Allergy status to other drugs, medicaments and biological substances; Z82.3 Family history of stroke; Z99.2 Dependence on renal dialysis; Z99.81 Dependence on supplemental oxygen; Z79.82 Long term (current) use of aspirin; Z79.899 Other long term (current) drug therapy; Z79.891 Long term (current) use of opiate analgesic; Z87.891 Personal history of nicotine dependence; Z86.718 Personal history of other venous thrombosis and embolism; Z82.49 Family history of ischemic heart disease and other diseases of the circulatory system; Z83.3 Family history of diabetes mellitus; Z95.0 Presence of cardiac pacemaker; Z87.01 Personal history of pneumonia (recurrent); Z86.73 Personal history of transient ischemic attack (TIA), and cerebral infarction without residual deficits; Z95.5 Presence of coronary angioplasty implant and graft
CPT/HCPCS: 36415; 70450; 71045; 71275; 80048; 80053; 82270; 82962; 83605; 83735; 83880; 84484; 85025; 85048; 85379; 87045; 87081; 87340; 87427; 87493; 90935; 93005; 93306; 93970; 97163; G0378; J1815; J2405; J2470; J3490

== ENCOUNTER 2024-11-28 14:11 | Inpatient (IN) | payer OTHER, MEDICAID ==
[~2024-11-28] VITALS: Ht 162.6 cm; Wt 67.9 kg
[~2024-11-28 14:11] MED LIST changes: -AML5T PO; -BENZ100C97 PO; +CLON0.1T PO; +CLOP75TA28 PO; -DOCU-94 PO; +DONE5TAB80 PO; +HYDR-4072 PO; -HYDR-4902 PO; +INS7030I; +INS7030I SC; +IPR002IS NEB; +MECL1TAB42 PO; -OMEP20TA PO; +PATI1POW PO; +TRAZ-181 PO; +VANC125C3 PO
--- NOTE | 2024-11-28 14:37 | ED.PDOC ---
HPI Comments 79 y/o M, BIBA, with PMHx of CAD, ESRD, HTN, DM, CHF, COPD and dementia presents to the ED for CC of chest pain. EMS reports, patient is coming from home where he c/o chest pain with associated shortness of breath onset, yesterday (11/27/24). Upon arrival to scene, EMS relays patient was found to be tachypneic and hypoxic stating in the 80's on R.A. In route, to the ED patient was place on a non-rebreather mask and oxygen saturation improved to 92-94%. Patient endorses, experiencing left-sided non-radiating chest pain with associated shortness of breath x1day. Patient reports, chest pain to worsen with light exertion and c/o current 8/10 chest pain. Patient denies fever, cough, palpitations, weakness or numbness No other symptoms or modifying factors present at this time. Time Seen by MD: 14:00 Primary Care Provider: UNKNOWN Reviewed Notes: Nurses Notes, Medications, Allergies Allergies: Coded Allergies: Lisinopril (Verified Adverse Reaction, Severe, ANGIOEDEMA, 09/23/23) FACE,TONGUE, LIP SWELLING Home Meds Active Scripts Insulin Isophane & Reg (Human) (Humulin 70/30 (70-30) 100 Unit/ml) 1 Units/0.01 Ml Inj, 10 UNITS SC BID, #1000 UNITS Prov:PETER LAMAR MD 06/10/24 Pantoprazole Sodium Sesquihydr (Protonix) 40 Mg Tab, 40 MG PO DAILY, #30 TAB Prov:PETER LAMAR MD 06/10/24 Vancomycin HCl (Vancomycin HCl) 125 Mg Cap, 125 MG PO QID for 14 Days, #56 CAP Prov:PETER LAMAR MD 06/10/24 Reported Medications Donepezil Hydrochloride (DONEPEZIL HCL) 5 Mg Tab, 1 TAB PO DAILY, #30 TAB 5 Refills 06/06/24 Insulin Isophane & Reg (Human) (Humulin 70/30 (70-30) 100 Unit/ml) 1 Units/0.01 Ml Inj 06/05/24 Ipratropium Annabella (Ipratropium Annabella) 0.02 % Lolita, NEB BID 06/05/24 Patiromer Sorbitex Calcium (Veltassa) 8.4 Gm Pow, 1 PKT PO 1/13/25 Hydrocodone-Acetaminophen (Hydrocodone/Acetaminophen 10-325 mg) 1 Tab Tab, 1 TAB PO BID, TAB 06/05/24 Clonidine Hydrochloride (Clonidine Hcl) 0.1 Mg Tab, 0.1 MG PO PRN for SBP>160, TAB 06/05/24 Meclizine HCl (Meclizine 25) 25 Mg Tab, 25 MG PO PRN for DIZZINESS, TAB 06/05/24 Trazodone HCl (Trazodone Hydrochloride) 50 Mg Tab, 50 MG PO HS, TAB 06/05/24 Clopidogrel Bisulfate (Plavix) 75 Mg Tab, 75 MG PO DAILY, TAB 06/05/24 Pantoprazole Sodium Sesquihydr (Protonix) 40 Mg Tab, 40 MG PO DAILY, #30 TAB 10/28/23 Bupropion HCl (Bupropion Hydrochloride) 75 Mg Tab, 150 MG PO DAILY, TAB 10/28/23 Atorvastatin Calcium (ATORVASTATIN CALCIUM) 40 Mg Tab, 80 MG PO QPM, #90 TAB 3 Refills 10/28/23 Minoxidil (Loniten) 2.5 Mg Tb, 1 TAB PO BID 09/15/23 Hydralazine Hcl (Hydralazine Hcl) 50 Mg Tab, 1 TAB PO BID 09/15/23 Aspirin (Aspirin Low Dose) 81 Mg Chw, 1 TAB PO DAILY 09/15/23 Nitroglycerin (Nitrostat) 0.4 Mg Sub, 1 TAB SL Q5MIN PRN for CHEST PAIN for 30 Days, #25 09/15/23 Nifedipine (Nifedipine Er) 30 Mg Tab, 1 TAB PO BID 09/15/23 Duloxetine HCl (Duloxetine HCl) 30 Mg Cap, 1 CAP PO DAILY 09/15/23 Information Source: Patient Mode of Arrival: Ambulatory Severity: Moderate Timing: Days Duration: Since onset Prehospital treatment: None Location: Chest (L) Radiation: No Radiation Onset: With Light Exertion Cardiac Risk Factors: HTN, Diabetes PE Risk Factors: None History of: None Modifying Factors: Nothing Associated Signs and Symptoms: SOB Past Medical History PAST MEDICAL HISTORY: CAD, CHF, COPD, Dementia, DM, ESRD, HTN Surgical History: Hernia Repair, Pacemaker, Tonsillectomy Family History Family History: Reviewed,noncontributory to illness, Unknown Social History Smoker: Quit Greater Than 1 Year Alcohol: Denies ETOH Use Drugs: Denies Drug Use Lives In: Home Constitutional: denies: chills, diaphoresis, fatigue, fever, malaise, sweats, weakness, others EENTM: denies: blurred vision, double vision, ear bleeding, ear discharge, ear drainage, ear pain, ear ringing, eye pain, eye redness, hearing loss, mouth p ain, mouth swelling, nasal discharge, nose bleeding, nose congestion, nose pain, photophobia, tearing, throat pain, throat swelling, voice changes, others Respiratory: reports: shortness of breath; denies: cough, hemoptysis, orthopnea, SOB at rest, SOB with excertion, stridor, wheezing, others Cardiovascular: reports: chest pain; denies: dizzy spells, diaphoresis, Dyspnea on exertion, edema, irregular heart beat, left arm pain, lightheadedness, palpitations, PND, syncope, others Gastrointestinal: denies: abdomen distended, abdominal pain, blood streaked bowels, constipated, diarrhea, dysphagia, difficulty swallowing, hematemesis, melena, nausea, poor appetite, poor fluid intake, rectal bleeding, rectal pain, vomiting, others Genitourinary: denies: burning, dysuria, flank pain, frequency, hematuria, incontinence, penile discharge, penile sore, pain, testicle pain, testicle swelling, urgency, others Neurological: denies: dizziness, fainting, headache, left sided numbness, left sided weakness, numbness, paresthesia, pre-existing deficit, right sided numbness, right sided weakness, seizure, speech problems, tingling, tremors, weakness, others Musculoskeletal: denies: back pain, gout, joint pain, joint swelling, muscle pain, muscle stiffness, neck pain, others Integumetry: denies: bruises, change in color, change in hair/nails, dryness, laceration, lesions, lumps, rash, wounds, others Allergic/Immunocompromised: denies: Difficulty Healing, Frequent Infections, Hives, Itching, others Hematologic/Lymphatic: denies: anemia, blood clots, easy bleeding, easy bruising, swollen glands, others Endocrine: denies: excessive hunger, excessive sweating, excessive thirst, excessive urination, flushing, intolerance to cold, intolerance to heat, unexplained weight gain, unexplained weight loss, others Psychiatric: denies: anxiety, bipolar disorder, depression, hopeless, panic dis order, schizophrenia, sleepless, suicidal, others All Other Systems: Reviewed and Negative Physical Exam General Appearance: No Apparent Distress, Normal HEENT: Normal ENT Inspection, Pharynx Normal Neck: Full Range of Motion, Non-Tender, Normal, Normal Inspection Respiratory: Chest Non-Tender, Lungs Clear, No Accessory Muscle Use, No Respiratory Distress, Normal Breath Sounds, Other (Tachypneic) Cardiovascular: No Edema, No Murmur, No Gallop, Normal Peripheral Pulses, Regular Rate/Rhythm Breast Exam: Deferred Gastrointestinal: No Organomegaly, Non Tender, No Pulsatile Mass, Normal Bowel Sounds, Soft Genitalia: Deferred Pelvic: Deferred Rectal: Deferred Extremities: No calf tenderness, Normal capillary refill, Normal inspection, Normal range of motion, Non-tender, No pedal edema Musculoskeletal : Apperance: Normal Neurologic: Alert, ship's captain II-XII nml as Tested, No Motor Deficits, Normal Affect, Normal Mood, No Sensory Deficits Cerebellar Function: Normal Reflexes: Normal Skin: Dry, Normal Color, Warm Lymphatic: No Adenopathy Was a procedure done? Was a procedure done?: No CP Differential Dx Differential Diagnosis: Heart Failure, LA, PAC's Differential Diagnosis: HTN Essential, HTN Accelerated Differential Diagnosis: Angina, Chest Wall Pain, Costochondritis, Esophageal reflux/spasm, Gastritis, Pneumonia X-Ray, Labs, Meds, VS Vital Signs Date Time Temp Pulse Resp B/P (MAP) Pulse Ox O2 Delivery O2 Flow Rate FiO2 11/28/24 15:18 79 11/28/24 14:53 97.9 80 15 131/61 (84) 99 97.9 11/28/24 14:15 98.1 85 14 137/56 (83) 91 98.1 11/28/24 14:12 85 Lab Test 11/28/24 15:35 11/28/24 14:28 Range/Units Troponin I High Sensitivity Pending 86 *H </=54 ng/L White Blood Count 8.8 4.4-10.8 10^3/uL Red Blood Count 2.92 L 4.5-5.90 10^6/uL Hemoglobin 9.3 L 13.5-17.5 g/dL Hematocrit 27.2 L 41.0-53.0 % Mean Corpuscular Volume 93.2 80.0-100.0 fL Mean Corpuscular Hemoglobin 31.8 28.0-32.0 pg Mean Corpuscular Hemoglobin Concent 34.1 32.0-36.0 g/dL Red Cell Distribution Width 18.8 H 11.8-14.3 % Platelet Count 141 140-450 10^3/uL Mean Platelet Volume 7.2 6.9-10.8 fL Neutrophils (%) (Auto) 77.1 37.0-80.0 % Lymphocytes (%) (Auto) 7.2 L 10.0-50.0 % Monocytes (%) (Auto) 13.9 H 0.0-12.0 % Eosinophils (%) (Auto) 1.5 0.0-7.0 % Basophils (%) (Auto) 0.3 0.0-2.0 % Neutrophils # (Auto) 6.8 1.6-8.6 10 ^3/uL Lymphocytes # (Auto) 0.6 0.4-5.4 10 ^3/uL Monocytes # (Auto) 1.2 0-1.3 10 ^3/uL Eosinophils # (Auto) 0.1 0-0.8 10 ^3/uL Basophils # (Auto) 0 0-0.2 10 ^3/uL Nucleated Red Blood Cells 0.0 % Sodium Level 134 L 136-145 mmol/L Potassium Level 5.5 H 3.5-5.1 mmol/L Chloride Level 95 L 98-107 mmol/L Carbon Dioxide Level 31 20-31 mmol/L Anion Gap 8 5-15 Blood Urea Nitrogen 30 H 9-23 mg/dL Creatinine 5.80 H 0.700-1.30 mg/dL Glomerular Filtration Rate Calc 9 >90 mL/min BUN/Creatinine Ratio 5.2 L 10.0-20.0 Serum Glucose 107 H 74-106 mg/dL Calcium Level 8.9 8.7-10.4 mg/dL B-Type Natriuretic Peptide 770.73 0-100 pg/mL [address] [address] Ph: [phone] DIAGNOSTIC IMAGING Diagnostic Imaging Report : [id number] Signed PATIENT: LIZBETH LU ACCT: [id number] UNIT: [id number] : 1945 LOC: ER ROOM / BED: / AGE / SEX: 79 / M ADM STATUS: REG ER SERVICE 1416 ORDERING PHYSICIAN: MICHAEL CERVANTES MD PROCEDURE(s): CXRP - CHEST PORTABLE REASON: sob ORDER NUMBER(s): [id number], ACCESSION NUMBER(s): [id number] EXAM: XY CHEST PORTABLE Indication: sob Technique: Single frontal view of the chest was obtained Comparison: XY CHEST PORTABLE on DOS: 06/03/24, XY CHEST PORTABLE on DOS: 04/24/24, XY CHEST PORTABLE on DOS: 04/23/24, XY CHEST PORTABLE on DOS: 04/21/24, XY CHEST XRAY 1 VIEW on DOS: 03/09/24 FINDINGS: Lines and Tubes: None Lungs: Pulmonary vascular congestion. Pleura: No effusion. No pneumothorax. Cardiomediastinal contours: Unremarkable Bones: No acute osseous abnormality. IMPRESSION: Pulmonary vascular congestion. Superimposed atypical infection can not be excluded. ATED BY: HARJIT HOLDER MD DICTATED DATE/TIME: 11/28/241456 SIGNED BY: HARJIT HOLDER MD SIGNED DATE/TIME: 11/28/241456 CC: Time of 1ST Reevaluation: 14:30 Reevaluation 1ST: Unchanged Patient Education/Counseling: Diagnosis, Treatment Family Education/Counseling: No Family Present SEPSIS Sepsis Screen Physician Orders Urinalysis (11/28/24 14:16) Chest Portable (11/28/24 14:16) Troponin-I Hs (11/28/24 15:16) Troponin-I Hs (11/28/24 17:16) Electrocardigram (11/28/24 14:16) Electrocardigram (11/28/24 15:16) Electrocardigram (11/28/24 17:16) Vital Signs Date Time Temp Pulse Resp B/P (MAP) Pulse Ox O2 Delivery O2 Flow Rate FiO2 11/28/24 15:18 79 11/28/24 14:53 97.9 80 15 131/61 (84) 99 97.9 11/28/24 14:15 98.1 85 14 137/56 (83) 91 98.1 11/28/24 14:12 85 Laboratory Tests Test 11/28/24 14:28 White Blood Count 8.8 10^3/uL (4.4-10.8) Departure 1 Departure Time of Disposition: 15:52 (Patient presented with chest pain that was concerning for possible STEMI, ACS, PE, Pneumonia, Muscle Strain, COPD, Dissection. Data: 1. I ordered and reviewed the result of at least 3 labs including a CBC, BMP, and Troponin. 2. I independently interpreted the following tests: EKG which shows sinus arrhythmia and Chest X-ray which shows pulmonary vascular congestion.Risk:This patient has a high risk of morbidity due to further diagnostic testing or treatment and may suffer from an acute cardiac or respiratory disorder. Workup reveals concern for ACS and patient should be admitted for further workup and possible expert consultation. ) Impression: Primary Impression: Acute chest pain Additional Impressions: Shortness of breath ESRD on hemodialysis Disposition: ADMITTED INPATIENT Admit to: Med Surg Condition: Guarded Critical Care Note Critical Care Time?: Yes Critical care comment: Acute chest pain Authorized and Performed by: Michael Cervantes MD Total critical care time: Approximately 42 minutes Due to a high probability of clinically significant, life threatening deterioration, the patient required my highest level of preparedness to intervene emergently and I personally spent this critical care time directly and personally managing the patient. This critical care time included obtaining a history; examining the patient; pulse oximetry; ordering and review of studies; arranging urgent treatment with development of a management plan; evaluation of patient's response to treatment; frequent reassessment; and, discussions with other providers. This critical care time was performed to assess and manage the high probability of imminent, life-threatening deterioration that could result in multi-organ failure. It was exclusive of separately billable procedures and treating other patients and teaching time. Please see my other sections and the rest of the note for further information on patient assessment and treatment. Stability Stability form required: No Heart Score Heart Score: Heart Score Response (Comments) Value History N/A 0 EKG N/A 0 Age N/A 0 Risk Factors N/A 0 Troponin N/A 0 Total 0 I personally scribed for MICHAEL CERVANTES MD ([email or web address]) on 11/28/24 at 14:37. Electronically submitted by Audrey Traore ([email or web address]). I personally scribed for MICHAEL CERVANTES MD ([email or web address]) on 11/28/24 at 15:29. Electronically submitted by Audrey Traore ([email or web address]). MICHAEL CERVANTES MD Nov 28, 2024 14:37
[2024-11-28 14:49] LABS: Hematocrit 27.2 % (41.0-53.0); Hemoglobin 9.3 g/dL (13.5-17.5); Mean Corpuscular Hemoglobin 31.8 pg (28.0-32.0); Mean Corpuscular Volume 93.2 fL (80.0-100.0); Nucleated Red Blood Cells % 0.0 %
[2024-11-28 14:54] LABS: Anion Gap 8 (5-15)
[2024-11-28 14:55] LABS: Calcium 8.9 mg/dL (8.7-10.4)
--- NOTE | 2024-11-28 14:59 | DVH ---
EXAM: XY CHEST PORTABLE Indication: sob Technique: Single frontal view of the chest was obtained Comparison: XY CHEST PORTABLE on DOS: 06/03/24, XY CHEST PORTABLE on DOS: 04/24/24, XY CHEST PORTABLE o n DOS: 04/23/24, XY CHEST PORTABLE on DOS: 04/21/24, XY CHEST XRAY 1 VIEW on DOS: 03/09/24 FINDINGS: Lines and Tubes: None Lungs: Pulmonary vascular congestion. Pleura: No effusion. No pneumothorax. Cardiomediastinal contours: Unremarkable Bones: No acute osseous abnormality. IMPRESSION: Pulmonary vascular congestion. Superimposed atypical infection can not be excluded.
[2024-11-28 15:00] LABS: BUN/Creatinine Ratio 5.2 (10.0-20.0)
[2024-11-28 15:02] LABS: Blood Urea Nitrogen 30 mg/dL (9-23); Carbon Dioxide 31 mmol/L (20-31); Chloride 95 mmol/L (98-107); Glucose 107 mg/dL (74-106); Potassium 5.5 mmol/L (3.5-5.1); Sodium 134 mmol/L (136-145)
[2024-11-28] MEDS ORDERED: ONDANSETRON HCL 4 MG/2 ML VIAL IV PRN (17:00)
[2024-11-28] MEDS: ACCU-CHEK COMFORT CURVE STRIP VI SCH (17:00)
[2024-11-28] MEDS ORDERED: DEXTROSE (50%) 50ML SYRG IV PRN (17:00)
[2024-11-28] MEDS ORDERED: ACETAMINOPHEN 325 MG TAB PO PRN (17:00)
[2024-11-28] MEDS ORDERED: NITROGLYCERIN 0.4 MG SL TAB SL PRN (18:15)
--- NOTE | 2024-11-28 18:15 | DVHHP2 ---
History of Present Illness Reason for Visit: Acute respiratory distress History of Present Illness The patient is a 79-year-old male with past medical history of CHF, Coronary artery disease, COPD, dementia, DM, ESRD on dialysis and hypertension who presented to [facility] ED with complaint of chest pain. As reported by EMS, patient was found tachypneic, hypoxic with O2 saturation in the 80s on room air, and was placed on a non-rebreather mask with improved O2 saturation to 94%. Patient reports, experiencing left-sided non-radiating chest pain, rating 8/10 numeric scale, worse with exertion, associated with shortness of breath for the past 1 day. Patient was seen and evaluated in the ED, laboratory data shows WBC 8.8, hemoglobin 9.3, hematocrit 27.2, platelets 141, sodium 134, potassium 5.5, BUN 30, creatinine 5.80, glucose 107, calcium 8.9, troponin 86, BNP 770.73, blood pressure 130/62, heart rate 79, temperature 97.9 F, O2 saturation 92% on oxygen. Chest x-ray revealing pulmonary vascular congestion, superimposed atypical infection can not be excluded. Please see medication orders section in the computer. On my assessment, patient denied chest pain at this moment, no headache, no dizziness, currently on oxygen, no nausea, no vomiting, no fever, no chills. Patient was admitted for further evaluation and medical management. Past Medical History CAD, CHF, COPD, Dementia, DM, ESRD, HTN Past Surgical History Hernia Repair, Pacemaker, Tonsillectomy Family History Reviewed, noncontributory to the management of this case. Past Social History The patient lives at home, quit smoking greater than 1 year, denies alcohol or illicit drugs abuse. Review of Systems Constitutional: No: Fever, Chills, Sweats, Weakness, Malaise, Other Eyes: No: Pain, Vision change, Conjunctivae inflammation, Eyelid inflammation, Other, Redness ENT: No: Ear pain, Ear discharge, Nose pain, Nose discharge, Nose congestion, Mouth pain, Mouth swelling, Throat pain, Throat swelling, Other Respiratory: Shortness of breath; No: Cough, Dry, SOB with excertion, Wheezing, Hemoptysis, Pleuritic Pain, Sputum, Wheezing, Other Cardiovascular: Chest Pain; No: Palpitations, Orthopnea, Paroxysmal Noc. Dyspnea, Edema, Lt Headedness, Other Gastrointestinal: No: Nausea, Vomiting, Abdominal Pain, Diarrhea, Constipation, Melena, Hematochezia, Other Genitourinary: No Dysuria, No Frequency, No Incontinence, No Hematuria, No Retention, No Other Musculoskeletal: No: other, neck pain, shoulder pain, arm pain, back pain, hand pain, leg pain, foot pain Skin: No: Rash, Lesions, Jaundice, Bruising, Other Neurological: No: Weakness, Numbness, Incoordination, Change in speech, Confusion, Seizures, Other Allergies: Coded Allergies: Lisinopril (Verified Adverse Reaction, Severe, ANGIOEDEMA, 09/23/23) FACE,TONGUE, LIP SWELLING Medications Current Medications Medications Dose Ordered Sig/Nereyda Route Start Time Stop Time Status Last Admin Dose Admin Aspirin 81 mg DAILY PO 11/29/24 10:00 Atorvastatin Calcium 20 mg HS PO 11/28/24 22:00 Famotidine 10 mg Q12H IV 11/28/24 22:00 Clonidine HCl 0.1 mg Q4HP PRN PO 11/28/24 17:00 Multivit/Ca Carb/ B Cmplx/FA/Prenat 1 tab DAILY PO 11/29/24 10:00 Sevelamer HCl 800 mg TIDWM PO 11/28/24 18:00 Diagnostic Test (Pha) 1 strip ACHS 11/28/24 17:00 Insulin Human Regular ACHS SC 11/28/24 17:00 Dextrose 50 ml UD PRN IV 11/28/24 17:00 Sodium Chloride 10 ml Q8HR IV 11/28/24 22:00 Acetaminophen/ Hydrocodone Bitart 1 tab Q4HP PRN PO 11/28/24 17:00 Ondansetron HCl 4 mg Q4HP PRN IV 11/28/24 17:00 Docusate Sodium 100 mg BIDPRN PRN PO 11/28/24 17:00 Acetaminophen 650 mg Q6HP PRN PO 11/28/24 17:00 Carvedilol 6.25 mg Q12HR PO 11/28/24 22:00 Duloxetine HCl 30 mg DAILY PO 11/29/24 10:00 Exam Vital Signs Vital Signs Date Time Temp Pulse Resp B/P (MAP) Pulse Ox O2 Delivery O2 Flow Rate FiO2 11/28/24 17:14 71 11/28/24 17:00 12 129/58 (81) 94 11/28/24 16:07 Nasal Cannula* 6 44 11/28/24 14:53 97.9 97.9 General Appearance: Alert, Oriented X3, Cooperative, No acute distress HEENT: Atraumatic, PERRLA, EOMI, Mucous membr. moist/pink Respiratory: Normal air movement Cardiovascular: Regular rate, Normal S1, Normal S2, No murmurs Abdominal: Normal bowel sounds, Soft, No tenderness, No hepatospenomegaly, No masses Extremities: No clubbing, No cyanosis, Normal pulses, No tenderness/swelling Skin: No rashes, No significant lesion Neuro: Normal gait, Normal speech, Strength at 5/5 X4 ext, Normal tone, Sensation intact, Cranial nerves 3-12 NL, Reflexes 2+ Psych/Mental Status: Mental status NL, Mood NL Labs/Xrays Labs Test 11/28/24 17:54 11/28/24 14:28 Range/Units White Blood Count 8.8 4.4-10.8 10^3/uL Red Blood Count 2.92 L 4.5-5.90 10^6/uL Hemoglobin 9.3 L 13.5-17.5 g/dL Hematocrit 27.2 L 41.0-53.0 % Mean Corpuscular Volume 93.2 80.0-100.0 fL Mean Corpuscular Hemoglobin 31.8 28.0-32.0 pg Mean Corpuscular Hemoglobin Concent 34.1 32.0-36.0 g/dL Red Cell Distribution Width 18.8 H 11.8-14.3 % Platelet Count 141 140-450 10^3/uL Mean Platelet Volume 7.2 6.9-10.8 fL Neutrophils (%) (Auto) 77.1 37.0-80.0 % Lymphocytes (%) (Auto) 7.2 L 10.0-50.0 % Monocytes (%) (Auto) 13.9 H 0.0-12.0 % Eosinophils (%) (Auto) 1.5 0.0-7.0 % Basophils (%) (Auto) 0.3 0.0-2.0 % Neutrophils # (Auto) 6.8 1.6-8.6 10 ^3/uL Lymphocytes # (Auto) 0.6 0.4-5.4 10 ^3/uL Monocytes # (Auto) 1.2 0-1.3 10 ^3/uL Eosinophils # (Auto) 0.1 0-0.8 10 ^3/uL Basophils # (Auto) 0 0-0.2 10 ^3/uL Nucleated Red Blood Cells 0.0 % Sodium Level 134 L 136-145 mmol/L Potassium Level 5.5 H 3.5-5.1 mmol/L Chloride Level 95 L 98-107 mmol/L Carbon Dioxide Level 31 20-31 mmol/L Anion Gap 8 5-15 Blood Urea Nitrogen 30 H 9-23 mg/dL Creatinine 5.80 H 0.700-1.30 mg/dL Glomerular Filtration Rate Calc 9 >90 mL/min BUN/Creatinine Ratio 5.2 L 10.0-20.0 Serum Glucose 107 H 74-106 mg/dL Calcium Level 8.9 8.7-10.4 mg/dL B-Type Natriuretic Peptide 770.73 0-100 pg/mL PATIENT: LIZBETH LU ACCT: [id number] UNIT: [id number] : 1945 LOC: ER ROOM / BED: / AGE / SEX: 79 / M ADM STATUS: REG ER SERVICE 1416 ORDERING PHYSICIAN: MICHAEL CERVANTES MD PROCEDURE(s): CXRP - CHEST PORTABLE REASON: sob ORDER NUMBER(s): [id number], ACCESSION NUMBER(s): [id number] EXAM: XY CHEST PORTABLE Indication: sob Technique: Single frontal view of the chest was obtained Comparison: XY CHEST PORTABLE on DOS: 06/03/24, XY CHEST PORTABLE on DOS: 04/24/24, XY CHEST PORTABLE on DOS: 04/23/24, XY CHEST PORTABLE on DOS: 04/21/24, XY CHEST XRAY 1 VIEW on DOS: 03/09/24 FINDINGS: Lines and Tubes: None Lungs: Pulmonary vascular congestion. Pleura: No effusion. No pneumothorax. Cardiomediastinal contours: Unremarkable Bones: No acute osseous abnormality. IMPRESSION: Pulmonary vascular congestion. Superimposed atypical infection can not be excluded. Assessment/Plan Assessment/Plan Acute chest pain Elevated troponin Electrolyte imbalance Acute respiratory distress ESRD on hemodialysis Acute exacerbation of congestive heart failure Plan 1. Admit to telemetry unit 2. Breathing treatment 3. Pain control management 4. Management of fluids and electrolytes 5. Consultation for Nephrology/hospitalist 6. Diagnostic tests chest x-ray 7. DVT prophylaxis-on aspirin 8. Repeat labs CBC, CMP in a.m. 9. Continue with current medical management 10. Treatment plan discussed with patient and RN. Patient verbalized understanding. Plan discussed with: Patient, Other (RN) My Orders Orders - DARREN FOSTER DNP Procedure Category Date Status Time Aspirin Tablet PHA 11/29/24 In Process 10:00 Atorvastatin (Lipitor) PHA 11/28/24 In Process 22:00 Famotidine Injection PHA 11/28/24 In Process (Pepcid Injection) 22:00 Clonidine Hcl Tablet PHA 11/28/24 In Process (Catapres Tablet) 17:00 B-Complex W/ C & PHA 11/29/24 In Process Folic Tablet 10:00 Sevelamer (Renagel) PHA 11/28/24 In Process 18:00 *[facility] CONS 11/28/24 Transmitted -[place] 16:58 Glucose Blood PHA 11/28/24 In Process (Accu-Chek Comfort 17:00 Insulin R (Human) PHA 11/28/24 In Process (Insulin R) 17:00 Dextrose 50% Syringe PHA 11/28/24 In Process 17:00 Allergies SHAYLA 11/28/24 In Process 16:58 Code Status CODE 11/28/24 Transmitted 16:58 Renal DIET 11/28/24 Transmitted Standard(2gna,3gk,Lopho) Dinner Sodium Chloride Lock PHA 11/28/24 In Process (Saline Lock Ns) 22:00 Oxygen Per Hour RT 11/28/24 Transmitted 16:58 Hydrocodone-Acet PHA 11/28/24 In Process 5/325mg Tab ([place] 17:00 Ondansetron Hcl PHA 11/28/24 In Process (Zofran) 17:00 Docusate Sodium PHA 11/28/24 In Process Capsule (Colace 17:00 Fall Risk Precautions SHAYLA 11/28/[address] 16:58 Complete Blood Count LAB 11/29/24 Verified 04:00 Comprehensive LAB 11/29/24 Verified Metabolic Panel 04:00 Condition: Serious SHAYLA 11/28/24 In Process 16:58 Acetaminophen Tablet PHA 11/28/24 In Process (Tylenol Tablet) 17:00 Maintain Bed Rest SHAYLA 11/28/24 In Process 16:58 Sequential SHAYLA 11/28/24 In Process Compression Device Carvedilol Tablet PHA 11/28/24 In Process (Coreg Tablet) 22:00 Duloxetine Hcl [facility] 11/29/24 In Process Capsule (Cymbalta 10:00 Admit ADMIT 11/28/24 Verified 18:13 Nitroglycerin [facility] 11/28/24 Verified Sublingual (Ntrostat 18:15 Morphine Sulfate [facility] 11/28/24 Verified Injection 18:15 Stat Ekg For Chest [facility] 11/28/24 Verified Pain 18:13 Notify Md Of Changes [facility] 11/28/24 Verified From Base 18:13 Mental Health Unit Lead Psychologist For [facility] 11/28/24 Verified 24 Hours 18:13 Emergency Dysrhythmia [facility] 11/28/24 Verified Protocol 18:13 Rhythm Strips Once [facility] 11/28/24 Verified Every Shift 18:13 Oxygen By Nasal 11/28/24 Verified Cannula 18:13 Problem List: (1) Acute chest pain (2) Elevated troponin (3) Electrolyte imbalance (4) Acute respiratory distress (5) ESRD on hemodialysis (6) Acute exacerbation of congestive heart failure Date of Service: Nov 28, 2024 Billing Provider: DARREN FOSTER DNP Common Visit Codes: [id number] INP/OBS CARE (HIGH) DARREN FOSTER DNP Nov 28, 2024 18:15
[2024-11-28] MEDS: SODIUM ZIRCONIUM CYCL 10 GM PAK PO ONE (18:36)
[2024-11-28] MEDS: InsuLIN REG 1unit/0.01ml Soln (100units/ml) SC SCH (18:40)
--- NOTE | 2024-11-28 19:18 | ECG ---
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
[2024-11-28] MEDS: SEVELAMER 800 MG TAB PO SCH (19:19)
[2024-11-28] MEDS: CARVEDILOL 3.125 MG TAB PO SCH (22:03)
[2024-11-28] MEDS: ATORVASTATIN 20 MG TAB PO SCH (22:04)
[2024-11-28] MEDS: SODIUM CHLOR 0.9% PF (SALINE LOCK) 10ML VIAL/SYR IV SCH (22:04)
[2024-11-28] MEDS: FAMOTIDINE (10MG/ML) 2ML VL IV SCH (22:05)
[2024-11-28 22:53] VITALS: BP 166/84; PULSE 71; RESP 18; TEMP 98.5; O2SAT 94
[2024-11-28] MEDS: MORPHINE SULFATE INJ 2 MG/ml SYRG IV PRN (23:05)
[2024-11-29] MEDS: MELATONIN 5 MG TAB PO ONE (00:15)
[2024-11-29 01:00] VITALS: BP 158/79; PULSE 73; RESP 18; TEMP 97.7; O2SAT 98
[2024-11-29 05:00] VITALS: BP 172/64; PULSE 87; RESP 18; TEMP 98.2; O2SAT 90
[2024-11-29] MEDS: MORPHINE SULFATE INJ 2 MG/ml SYRG IV PRN (05:07)
[2024-11-29 06:40] LABS: Albumin 4.1 g/dL (3.2-4.8); Alkaline Phosphatase 75 U/L (46-116); Anion Gap 9 (5-15); BUN/Creatinine Ratio 5.7 (10.0-20.0); Bilirubin, Total 0.5 mg/dL (0.2-1.0); Calcium 9.6 mg/dL (8.7-10.4); Carbon Dioxide 30 mmol/L (20-31); Total Protein 6.8 g/dL (5.7-8.2)
[2024-11-29 06:51] LABS: Blood Urea Nitrogen 38 mg/dL (9-23); Chloride 94 mmol/L (98-107); Glucose 73 mg/dL (74-106); Sodium 133 mmol/L (136-145)
[2024-11-29 06:52] LABS: Alanine Aminotransferase < 9 U/L (7-40)
[2024-11-29 06:53] LABS: Potassium 6.3 mmol/L (3.5-5.1)
[2024-11-29 06:58] LABS: Hematocrit 28.3 % (41.0-53.0); Hemoglobin 9.3 g/dL (13.5-17.5); Mean Corpuscular Hemoglobin 31.2 pg (28.0-32.0); Mean Corpuscular Volume 94.5 fL (80.0-100.0); Nucleated Red Blood Cells % 0.1 %
[2024-11-29] MEDS: SODIUM CHL 0.9% 1000 ML BAG XX ONE (07:00)
[2024-11-29 08:00] VITALS: PULSE 61; RESP 20; O2SAT 90
[2024-11-29] MEDS: B-COMPLEX W/ C & FOLIC ACID(NEPHROVITE TAB) PO SCH (09:26)
--- NOTE | 2024-11-29 10:48 | ECG ---
[facility] Test Date: 2024-11-28 Test Time: 15:18:24 Pat Name: LIZBETH LU Department: ER Room: 0218T Gender: M Environmental Systems Coordinator: LIZZY : 1945 Requested By: MICHAEL CERVANTES Order Number: [id number] Reading MD: Noah Alan Measurements Intervals [place] Rate: 79 P: 39 [place]: 202 QRS: 155 QRSD: 170 T: 47 QT: 429 QTc: 492 Interpretive Statements Sinus rhythm Right bundle branch block Probable anteroseptal infarct, old Electronically Signed On 11-30-2024 19:03:38 PDT by Noah Alan Please click the below link to view image of tracing.
[2024-11-29] MEDS ORDERED: EPOETIN ALFA-EPBX 4,000 UNIT/ML VIAL SC ONE (11:30)
--- NOTE | 2024-11-29 12:50 | DVHCONRES ---
Date Seen: Nov 29, 2024 Resident Creating Document: ANNA MARIE ESPINOSA RESIDENT Referring Physician Heather SHETTY History of Present Illness This is a 79-year-old male with ESRD on hemodialysis Wednesday/Wednesday/Wednesday for the past 5 years, diabetes mellitus type 2 for the past 20 years, dementia, COPD on home oxygen, coronary artery stent status post 2 PERLA 1 year back on aspirin therapy, history of C diff and pacemaker who presented to the ER with a chief complaint of shortness of breaths. Patient started to experience shortness of breaths 4 days back and he was saturating in the low 80s. Patient also reported left-sided chest pain which was stabbing, radiated to the neck and the left shoulder, related to exertion, but he said that it is not similar to the chest pain he had when he had [place]. Patient denies fevers/chills/nausea/vomiting at this time. Per patient's partner, patient had history of hep C and was treated with interferon in 2006. Patient received vaccination for hepatitis-B last year. Nephrology consulted for ESRD on hemodialysis Patient seen and examined at the bedside. WBC 11.7. Started ceftriaxone plus doxycycline, ordered blood cultures. Family History: Family history: Cardiovascular disease G8 BROTHER Family history: Diabetes mellitus G8 MOTHER G8 FATHER G8 BROTHER Family history: Hypertension G8 MOTHER G8 FATHER G8 BROTHER Stroke G8 MOTHER Allergies: Coded Allergies: Lisinopril (Verified Adverse Reaction, Severe, ANGIOEDEMA, 09/23/23) FACE,TONGUE, LIP SWELLING Home Meds Active Scripts Insulin Isophane & Reg (Human) (Humulin 70/30 (70-30) 100 Unit/ml) 1 Units/0.01 Ml Inj, 10 UNITS SC BID, #1000 UNITS Prov:PETER LAMAR MD 06/10/24 Pantoprazole Sodium Sesquihydr (Protonix) 40 Mg Tab, 40 MG PO DAILY, #30 TAB Prov:PETER LAMAR MD 06/10/24 Vancomycin HCl (Vancomycin HCl) 125 Mg Cap, 125 MG PO QID for 14 Days, #56 CAP Prov:PETER LAMAR MD 06/10/24 Reported Medications Donepezil Hydrochloride (DONEPEZIL HCL) 5 Mg Tab, 1 TAB PO DAILY, #30 TAB 5 Refills 06/06/24 Insulin Isophane & Reg (Human) (Humulin 70/30 (70-30) 100 Unit/ml) 1 Units/0.01 Ml Inj 06/05/24 Ipratropium Wheeler (Ipratropium Wheeler) 0.02 % Lolita, NEB BID 06/05/24 Patiromer Sorbitex Calcium (Veltassa) 8.4 Gm Pow, 1 PKT PO 06/05/24 Hydrocodone-Acetaminophen (Hydrocodone/Acetaminophen 10-325 mg) 1 Tab Tab, 1 TAB PO BID, TAB 06/05/24 Clonidine Hydrochloride (Clonidine Hcl) 0.1 Mg Tab, 0.1 MG PO PRN for SBP>160, TAB 06/05/24 Meclizine HCl (Meclizine 25) 25 Mg Tab, 25 MG PO PRN for DIZZINESS, TAB 06/05/24 Trazodone HCl (Trazodone Hydrochloride) 50 Mg Tab, 50 MG PO HS, TAB 06/05/24 Clopidogrel Bisulfate (Plavix) 75 Mg Tab, 75 MG PO DAILY, TAB 06/05/24 Pantoprazole Sodium Sesquihydr (Protonix) 40 Mg Tab, 40 MG PO DAILY, #30 TAB 10/28/23 Bupropion HCl (Bupropion Hydrochloride) 75 Mg Tab, 150 MG PO DAILY, TAB 10/28/23 Atorvastatin Calcium (ATORVASTATIN CALCIUM) 40 Mg Tab, 80 MG PO QPM, #90 TAB 3 Refills 10/28/23 Minoxidil (Loniten) 2.5 Mg Tb, 1 TAB PO BID 09/15/23 Hydralazine Hcl (Hydralazine Hcl) 50 Mg Tab, 1 TAB PO BID 09/15/23 Aspirin (Aspirin Low Dose) 81 Mg Chw, 1 TAB PO DAILY 09/15/23 Nitroglycerin (Nitrostat) 0.4 Mg Sub, 1 TAB SL Q5MIN PRN for CHEST PAIN for 30 Days, #25 09/15/23 Nifedipine (Nifedipine Er) 30 Mg Tab, 1 TAB PO BID 09/15/23 Duloxetine HCl (Duloxetine HCl) 30 Mg Cap, 1 CAP PO DAILY 09/15/23 Current Medications Current Medications Medications (Trade) Dose Ordered Sig/Nereyda Route PRN Reason Start Time Stop Time Status Last Admin Aspirin 81 mg DAILY PO 11/29/24 10:00 11/29/24 09:26 Atorvastatin Calcium (Lipitor) 20 mg HS PO 11/28/24 22:00 11/28/24 22:04 Famotidine (Pepcid Injection) 10 mg Q12H IV 11/28/24 22:00 11/29/24 09:26 Clonidine HCl (Catapres Tablet) 0.1 mg Q4HP PRN PO SBP>150 11/28/24 17:00 11/28/24 21:00 Multivit/Ca Carb/ B Cmplx/FA/Prenat (Nephro-Jane Tablet) 1 tab DAILY PO 11/29/24 10:00 11/29/24 09:26 Sevelamer HCl (Renagel) 800 mg TIDWM PO 11/28/24 18:00 11/29/24 09:26 Diagnostic Test (Pha) (Accu-Chek Comfort Curve T) 1 strip ACHS 11/28/24 17:00 11/29/24 11:30 Insulin Human Regular (InsuLIN R) ACHS SC 11/28/24 17:00 11/28/24 22:00 Dextrose 50 ml UD PRN IV Blood Sugar LESS THAN 60 11/28/24 17:00 Sodium Chloride (Saline Lock Ns) 10 ml Q8HR IV 11/28/24 22:00 11/29/24 06:12 Acetaminophen/ Hydrocodone Bitart (Lev[place] 5/325MG Tab) 1 tab Q4HP PRN PO MODERATE PAIN (4-6 PAIN SCALE) 11/28/24 17:00 Ondansetron HCl (Zofran) 4 mg Q4HP PRN IV NAUSEA / VOMITING 11/28/24 17:00 Docusate Sodium (Colace Capsule) 100 mg BIDPRN PRN PO FOR CONSTIPATION 11/28/24 17:00 Acetaminophen (Tylenol Tablet) 650 mg Q6HP PRN PO PAIN SCALE 1-3 OR TEMP>100.4 11/28/24 17:00 Carvedilol (Coreg Tablet) 6.25 mg Q12HR PO 11/28/24 22:00 11/28/24 22:03 Duloxetine HCl (Cymbalta Capsule) 30 mg DAILY PO 11/29/24 10:00 11/29/24 09:26 Nitroglycerin (Ntrostat Sublingual) 0.4 mg Q5MINP PRN SL FOR CHEST PAIN 11/28/24 18:15 Morphine Sulfate 2 mg Q30M PRN IV FOR CHEST PAIN 11/28/24 18:15 11/29/24 05:07 Morphine Sulfate 2 mg Q4HPRN PRN IV SEVERE PAIN (7-10 PAIN SCALE) 11/28/24 18:30 11/28/24 23:05 Vital Signs Vital Signs Date Time Temp Pulse Resp B/P (MAP) Pulse Ox O2 Delivery O2 Flow Rate FiO2 11/29/24 09:34 61 103/43 11/29/24 08:00 20 90 Nasal Cannula* 4 36 11/29/24 05:00 98.2 98.2 Physical Exam Patient lying in bed, in no acute distress. Patient has a right upper arm fistula General: Overweight, afebrile, palor, mucosae are moist Cardiovascular: Regular S1 and S2. No murmurs, gallops or rubs. No JVD elevation. No pedal edema Respiratory: Decreased bibasilar breath sounds, coarse breath sounds, on 4 L oxygen Abdomen: Soft, nontender, nondistended, normoactive bowel sounds, no rebound tenderness, no organomegaly, no masses Genitourinary: Deferred MSK/skin: Mobilizes 4 limbs. Skin is dry and warm Neurological: No motor, no sensitive deficits, normal speech. Pupils are isocoric and reactive. Psych/Mental Status: A/Ox3 Labs/Diagnostic Data Labs Test 11/29/24 12:16 11/29/24 11:24 11/29/24 05:41 11/28/24 17:54 Range/Units POC Glucose 105 70-106 mg/dl White Blood Count 11.7 #H 4.4-10.8 10^3/uL Red Blood Count 2.99 L 4.5-5.90 10^6/uL Hemoglobin 9.3 L 13.5-17.5 g/dL Hematocrit 28.3 L 41.0-53.0 % Mean Corpuscular Volume 94.5 80.0-100.0 fL Mean Corpuscular Hemoglobin 31.2 28.0-32.0 pg Mean Corpuscular Hemoglobin Concent 33.0 32.0-36.0 g/dL Red Cell Distribution Width 18.9 H 11.8-14.3 % Platelet Count 131 L 140-450 10^3/uL Mean Platelet Volume 7.5 6.9-10.8 fL Neutrophils (%) (Auto) 85.4 H 37.0-80.0 % Lymphocytes (%) (Auto) 4.0 L 10.0-50.0 % Monocytes (%) (Auto) 9.6 0.0-12.0 % Eosinophils (%) (Auto) 0.8 0.0-7.0 % Basophils (%) (Auto) 0.2 0.0-2.0 % Neutrophils # (Auto) 10.0 H 1.6-8.6 10 ^3/uL Lymphocytes # (Auto) 0.5 0.4-5.4 10 ^3/uL Monocytes # (Auto) 1.1 0-1.3 10 ^3/uL Eosinophils # (Auto) 0.1 0-0.8 10 ^3/uL Basophils # (Auto) 0 0-0.2 10 ^3/uL Nucleated Red Blood Cells 0.1 % Sodium Level 133 L 136-145 mmol/L Potassium Level 6.3 *H 3.5-5.1 mmol/L Chloride Level 94 L 98-107 mmol/L Carbon Dioxide Level 30 20-31 mmol/L Anion Gap 9 5-15 Blood Urea Nitrogen 38 H 9-23 mg/dL Creatinine 6.67 H 0.700-1.30 mg/dL Glomerular Filtration Rate Calc 8 >90 mL/min BUN/Creatinine Ratio 5.7 L 10.0-20.0 Serum Glucose 73 L 74-106 mg/dL Calcium Level 9.6 8.7-10.4 mg/dL Total Bilirubin 0.5 0.2-1.0 mg/dL Aspartate Amino Transferase (AST) 16 13-40 U/L Alanine Aminotransferase (ALT) < 9 7-40 U/L Alkaline Phosphatase 75 46-116 U/L Total Protein 6.8 5.7-8.2 g/dL Albumin 4.1 3.2-4.8 g/dL Troponin I High Sensitivity 77 *H </=54 ng/L Test 11/28/24 14:28 Range/Units B-Type Natriuretic Peptide 770.73 0-100 pg/mL Assessment ESRD on hemodialysis Wednesday/Wednesday/Wednesday for the past 5 years Hyperkalemia secondary above Secondary hyperparathyroidism Likely chronic hep B infection Likely pneumonia, Gram-positive and negative NSTEMI Diabetes mellitus type 2 for the past 20 years COPD on home oxygen CAD status post 2 PERLA on ASA Status post PCM History of C diff Chest x-ray shows PVC, superimposed atypical infection can not be excluded Plan: Consulted Dr. Felipe Potts Patient underwent hemodialysis 11/29, 3.5 L taken out. Patient reports feeling better. Continue hemodialysis Wednesday/Wednesday/Wednesday. IV ceftriaxone and doxycycline, ordered blood culture Recommend complete hepatitis testing, HIV testing given positive hepatitis B surface antigen Monitor H&H Fluid restriction Patient will be followed by Dr. Felipe Potts Discussed with patient in which all questions have been answered Discussed with Dr. Henning Addendum Patient seen and examined, plan discussed with resident. Agree with above, we will follow closely Later in the day we called family and found pt goes [facility] We will consult Dr. Felipe Potts Patient has hep B positive status Plan discussed with: Patient, Spouse ANNA MARIE ESPINOSA RESIDENT Nov 29, 2024 12:50 CARLOS MANUEL HENNING MD Nov 29, 2024 18:21
[2024-11-29 13:00] VITALS: BP 143/65; PULSE 84; RESP 18; TEMP 98.4; O2SAT 90
--- NOTE | 2024-11-29 13:31 | DVHPN2 ---
Reviewed: Care Plan, H&P, Labs, Medications, Previous Orders Changes from previous H/P or p: No Changes Eyes: No Pain, No Vision change, No Conjunctivae inflammation, No Eyelid inflammation, No Other, No Redness ENT: No Ear pain, No Ear discharge, No Nose pain, No Nose discharge, No Nose congestion, No Mouth pain, No Mouth swelling, No Throat pain, No Throat swelling, No Other Cardiovascular: Chest Pain; No Palpitations, No Orthopnea, No Paroxysmal Noc. Dyspnea, No Edema, No Lt Headedness, No Other Respiratory: No Cough, No Dry; Shortness of breath; No SOB with excertion, No Wheezing, No Hemoptysis, No Pleuritic Pain, No Sputum, No Other Gastrointestinal: No Nausea, No Vomiting, No Abdominal Pain, No Diarrhea, No Constipation, No Melena, No Hematochezia, No Other Genitourinary: No Dysuria, No Frequency, No Incontinence, No Hematuria, No Retention, No Other Musculoskeletal: No other, No neck pain, No shoulder pain, No arm pain, No back pain, No hand pain, No leg pain, No foot pain Skin: No Rash, No Lesions, No Jaundice, No Bruising, No Other Objective Vitals Vital Signs Date Time Temp Pulse Resp B/P (MAP) Pulse Ox O2 Delivery O2 Flow Rate FiO2 11/29/24 09:34 61 103/43 11/29/24 08:00 20 90 Nasal Cannula* 4 36 11/29/24 05:00 98.2 98.2 Intake/Output Intake and Output 11/29/24 07:00 Intake Total 100 ml Balance 100 ml Intake Oral 100 ml # Bowel Movements 1 Medications Current Medications Medications Dose Ordered Sig/Nereyda Route Start Time Stop Time Status Last Admin Dose Admin Aspirin 81 mg DAILY PO 11/29/24 10:00 11/29/24 09:26 81 MG Atorvastatin Calcium 20 mg HS PO 11/28/24 22:00 11/28/24 22:04 20 MG Famotidine 10 mg Q12H IV 11/28/24 22:00 11/29/24 09:26 10 MG Clonidine HCl 0.1 mg Q4HP PRN PO 11/28/24 17:00 11/28/24 21:00 0.1 MG Multivit/Ca Carb/ B Cmplx/FA/Prenat 1 tab DAILY PO 11/29/24 10:00 11/29/24 09:26 1 TAB Sevelamer HCl 800 mg TIDWM PO 11/28/24 18:00 11/29/24 09:26 800 MG Diagnostic Test (Pha) 1 strip ACHS 11/28/24 17:00 11/29/24 11:30 1 STRIP Insulin Human Regular ACHS SC 11/28/24 17:00 11/28/24 22:00 161 UNITS Dextrose 50 ml UD PRN IV 11/28/24 17:00 Sodium Chloride 10 ml Q8HR IV 11/28/24 22:00 11/29/24 06:12 10 ML Acetaminophen/ Hydrocodone Bitart 1 tab Q4HP PRN PO 11/28/24 17:00 Ondansetron HCl 4 mg Q4HP PRN IV 11/28/24 17:00 Docusate Sodium 100 mg BIDPRN PRN PO 11/28/24 17:00 Acetaminophen 650 mg Q6HP PRN PO 11/28/24 17:00 Carvedilol 6.25 mg Q12HR PO 11/28/24 22:00 11/28/24 22:03 6.25 MG Duloxetine HCl 30 mg DAILY PO 11/29/24 10:00 11/29/24 09:26 30 MG Nitroglycerin 0.4 mg Q5MINP PRN SL 11/28/24 18:15 Morphine Sulfate 2 mg Q30M PRN IV 11/28/24 18:15 11/29/24 05:07 2 MG Morphine Sulfate 2 mg Q4HPRN PRN IV 11/28/24 18:30 11/28/24 23:05 2 MG Laboratory Results Laboratory Tests 11/29/24 05:41 Chemistry Test 11/28/24 14:28 11/29/24 05:41 Calcium Level 8.9 mg/dL (8.7-10.4) 9.6 mg/dL (8.7-10.4) Albumin 4.1 g/dL (3.2-4.8) Total Protein 6.8 g/dL (5.7-8.2) Cardiac Markers Test 11/28/24 14:28 B-Type Natriuretic Peptide 770.73 pg/mL (0-100) LFT Test 11/29/24 05:41 Alanine Aminotransferase (ALT) < 9 U/L (7-40) Alkaline Phosphatase 75 U/L (46-116) Aspartate Amino Transferase (AST) 16 U/L (13-40) Total Bilirubin 0.5 mg/dL (0.2-1.0) Labs and/or images reviewed: Labs reviewed by me, Image(s) reviewed by me Assessment/Plan Assessment/Plan Acute chest pain rule out coronary artery disease troponin slightly elevated, cardiology consult by Dr. Mondragon ESRD on hemodialysis: Consult for Dr. Hills History of coronary artery disease Acute CHF exacerbation Acute COPD exacerbation Dementia Diabetes type 2 Hypertension History of pacemaker Time taken 70 minutes Advanced care planning time 20 minutes Patient is full code Plan discussed with: Patient Date of Service: Nov 29, 2024 Billing Provider: NARESH BRASHER MD Common Visit Codes: 64741-[id number] CARE 30-74 MIN NARESH BRASHER MD Nov 29, 2024 13:31
--- NOTE | 2024-11-29 13:35 | ECG ---
[facility] Test Date: 2024-11-28 Test Time: 17:14:36 Pat Name: LIZBETH LU Department: ER Room: 0218T Gender: M Saw Cleaner: LIZZY : 1945 Requested By: MICHAEL CERVANTES Order Number: [id number] Reading MD: Noah Alan Measurements Intervals [place] Rate: 71 P: 46 VT: 195 QRS: 83 QRSD: 151 T: 57 QT: 431 QTc: 469 Interpretive Statements Sinus rhythm Right bundle branch block Electronically Signed On 11-30-2024 19:03:48 PDT by Noah Alan Please click the below link to view image of tracing.
[2024-11-29 15:28] LABS: Magnesium 2.3 mg/dL (1.6-2.6)
--- NOTE | 2024-11-29 16:15 | DVHSR ---
APPROVED REPORT EXAM: Two-dimensional and M-mode echocardiogram with Doppler and color Doppler. Blood Pressure: 131/61 mmHg INDICATION CHF exacerbation, unspecifed RISK FACTORS Height: 5'4", Weight: 160 DIMENSIONS LVDd4.6 (3.8-5.7cm)LA (2D)5.2 (1.9-4.0cm)Aortic Root3.7 (2.0-3.7cm) LVDs3.1 (2.5-4.0cm)LA (MM) (1.9-4.0cm)Aortic Cusp Exc1.1 (1.5-2.0cm) EF (%) 60.0 (55-70%)Rt. Atrium4.5 (1.9-4.0cm)Asc. Aorta cm IVSd1.3 (0.7-1.1cm)RV (D) (1.8-2.4cm) PWd1.2 (0.7-1.1cm) Mitral Valve MitralMitral Stenosis E wave1.00m/sMV Mean GR.mmHg A wave0.88m/sMV Peak GR.mmHg E/A ratio1.12D MVAcm2 DECEL [id number] 1/2 Timems Aortic Valve Aortic ValveAortic Stenosis V10.97m/Jean Mean GR.9mmHg V22.12m/Jean Peak GR.18mmHg LVOT Diameter2.3 (1.8-2.4cm)Doppler AVA1.90cm2 AI P 1/2 Oekv552.61ms Pulmonic Valve V21.25m/s Tricuspid Valve TR Velocity4.06m/s [id number] Conclusion Left ventricle: Mild concentric left ventricular hypertrophy was seen. LVEF was around 60%. There was no gross wall motion abnormality. Pseudo normal LV diastolic dysfunction was observed. Right ventricle: Right ventricle was dilated with preserved systolic function. Both atria were dila taty. Aortic valve: Aortic sclerosis with no stenosis was observed. Mild aortic insufficiency was seen. There was mild mitral regurgitation. There was [id number] tricuspid regurgitation. Pulmonary valve was not well visualized. Right ventricular systolic pressure was assessed at 55 mm Hg. There was no pericardial effusion.
[2024-11-29] MEDS: cefTRIAXone 1GM/50ML D5W 50 ML IV ONE (16:30)
[2024-11-29] MEDS: DOXYCYCLINE 100MG/100ML 100 ML IV SCH (16:30)
--- NOTE | 2024-11-29 16:50 | DVHINCON2 ---
Date of service: Nov 29, 2024 History of Present Illness HPI Patient is a 79-year-old gentleman who presented to the hospital with episode of shortness of breath and chest tightness. Since arrival, troponin was found to have stayed flat and minimally elevated. Reportedly the patient's oxygen saturation (found by EMS) was low and later responded to oxygen supplementation. Cardiology is involved for cardiac aspects of care. Patient is known to our practice from before and outside. Does have old history of coronary artery disease and has had the last stent in July 2023. He is supposed to stay on aspirin as outpatient. Does have history of subclavian/jugular DVT for which was on Eliquis for awhile (later stopped secondary to repeated GI bleedings). Does have history of chronically elevated troponin. Does have history of end- stage renal disease and is on hemodialysis. Home Meds Active Scripts Insulin Isophane & Reg (Human) (Humulin 70/30 (70-30) 100 Unit/ml) 1 Units/0.01 Ml Inj, 10 UNITS SC BID, #1000 UNITS Prov:PETER LAMAR MD 06/10/24 Pantoprazole Sodium Sesquihydr (Protonix) 40 Mg Tab, 40 MG PO DAILY, #30 TAB Prov:PETER LAMAR MD 06/10/24 Vancomycin HCl (Vancomycin HCl) 125 Mg Cap, 125 MG PO QID for 14 Days, #56 CAP Prov:PETER LAMAR MD 06/10/24 Reported Medications Donepezil Hydrochloride (DONEPEZIL HCL) 5 Mg Tab, 1 TAB PO DAILY, #30 TAB 5 Refills 06/06/24 Insulin Isophane & Reg (Human) (Humulin 70/30 (70-30) 100 Unit/ml) 1 Units/0.01 Ml Inj 06/05/24 Ipratropium [place] (Ipratropium [place]) 0.02 % [place], NEB BID 06/05/24 Patiromer Sorbitex Calcium ([place]) 8.4 Gm Pow, 1 PKT PO 06/05/24 Hydrocodone-Acetaminophen (Hydrocodone/Acetaminophen 10-325 mg) 1 Tab Tab, 1 TAB PO BID, TAB 06/05/24 Clonidine Hydrochloride (Clonidine Hcl) 0.1 Mg Tab, 0.1 MG PO PRN for SBP>160, TAB 06/05/24 Meclizine HCl (Meclizine 25) 25 Mg Tab, 25 MG PO PRN for DIZZINESS, TAB 06/05/24 Trazodone HCl (Trazodone Hydrochloride) 50 Mg Tab, 50 MG PO HS, TAB 06/05/24 Clopidogrel Bisulfate (Plavix) 75 Mg Tab, 75 MG PO DAILY, TAB 06/05/24 Pantoprazole Sodium Sesquihydr (Protonix) 40 Mg Tab, 40 MG PO DAILY, #30 TAB 10/28/23 Bupropion HCl (Bupropion Hydrochloride) 75 Mg Tab, 150 MG PO DAILY, TAB 10/28/23 Atorvastatin Calcium (ATORVASTATIN CALCIUM) 40 Mg Tab, 80 MG PO QPM, #90 TAB 3 Refills 10/28/23 Minoxidil (Loniten) 2.5 Mg Tb, 1 TAB PO BID 09/15/23 Hydralazine Hcl (Hydralazine Hcl) 50 Mg Tab, 1 TAB PO BID 09/15/23 Aspirin (Aspirin Low Dose) 81 Mg Chw, 1 TAB PO DAILY 09/15/23 Nitroglycerin (Nitrostat) 0.4 Mg Sub, 1 TAB SL Q5MIN PRN for CHEST PAIN for 30 Days, #25 09/15/23 Nifedipine (Nifedipine Er) 30 Mg Tab, 1 TAB PO BID 09/15/23 Duloxetine HCl (Duloxetine HCl) 30 Mg Cap, 1 CAP PO DAILY 09/15/23 Past Medical History Others Past medical history includes end-stage renal disease on hemodialysis, old history of CVA (2018), poor functional capacity, coronary artery disease and status post PCI (last stent in July 2023, ostial LAD), COPD, obstructive sleep apnea, diabetes mellitus, hypertension, anemia (history of repeated transfusion s), D-CHF, SVT, pulmonary hypertension (considered type 2), history of pancytopenia (resolved later), history of DVT in upper extremity, dementia, peripheral artery disease, right external iliac artery aneurysm, history of CDT colitis, repeated/significant GI bleedings and ex-smoker. Past medical history also includes DVT in the right upper extremity, history of septic shock, history of pneumonia, sick sinus syndrome and status post pacemaker (Micra/Medtronic) implantation. He is ex smoker. Patient Family History: Family history: Cardiovascular disease G8 BROTHER Family history: Diabetes mellitus G8 MOTHER G8 FATHER G8 BROTHER Family history: Hypertension G8 MOTHER G8 FATHER G8 BROTHER Stroke G8 MOTHER Smoker: Quit Lives with: With family Review of Systems Constitutional: No symptom reported Ears, Nose, & Throat: No symptom reported Pulmonary/Respiratory: Dyspnea All Other Systems 14 point review of system was performed. Relevant findings as per above and as per HPI. Otherwise negative. H&P Exam Vital Signs Vital Signs Date Time Temp Pulse Resp B/P (MAP) Pulse Ox O2 Delivery O2 Flow Rate FiO2 11/29/24 09:34 61 103/43 11/29/24 08:00 20 90 Nasal Cannula* 4 36 11/29/24 05:00 98.2 98.2 General Appeara: Well developed Head Exam: Normal inspection Eye Exam: bilateral eye PERRL Mouth: Normal Inspection Pulmonary/Respiratory: Lungs clear Cardiovascular/Chest: Regular rate, Systolic murmur Peripheral Pulses: 2+ carotid (R), 2+ carotid (L), 2+ femoral (R), 2+ femoral (L) Abdominal Exam: Normal bowel sounds, Soft Neuro/Mental St: Alert, Oriented Appearance: Appropriate appearance Labs/Xrays Labs Test 11/29/24 12:16 11/29/24 11:24 11/29/24 05:41 11/28/24 17:54 Range/Units POC Glucose 105 70-106 mg/dl Hepatitis B Surface Antigen Positive H Negative White Blood Count 11.7 #H 4.4-10.8 10^3/uL Red Blood Count 2.99 L 4.5-5.90 10^6/uL Hemoglobin 9.3 L 13.5-17.5 g/dL Hematocrit 28.3 L 41.0-53.0 % Mean Corpuscular Volume 94.5 80.0-100.0 fL Mean Corpuscular Hemoglobin 31.2 28.0-32.0 pg Mean Corpuscular Hemoglobin Concent 33.0 32.0-36.0 g/dL Red Cell Distribution Width 18.9 H 11.8-14.3 % Platelet Count 131 L 140-450 10^3/uL Mean Platelet Volume 7.5 6.9-10.8 fL Neutrophils (%) (Auto) 85.4 H 37.0-80.0 % Lymphocytes (%) (Auto) 4.0 L 10.0-50.0 % Monocytes (%) (Auto) 9.6 0.0-12.0 % Eosinophils (%) (Auto) 0.8 0.0-7.0 % Basophils (%) (Auto) 0.2 0.0-2.0 % Neutrophils # (Auto) 10.0 H 1.6-8.6 10 ^3/uL Lymphocytes # (Auto) 0.5 0.4-5.4 10 ^3/uL Monocytes # (Auto) 1.1 0-1.3 10 ^3/uL Eosinophils # (Auto) 0.1 0-0.8 10 ^3/uL Basophils # (Auto) 0 0-0.2 10 ^3/uL Nucleated Red Blood Cells 0.1 % Sodium Level 133 L 136-145 mmol/L Potassium Level 6.3 *H 3.5-5.1 mmol/L Chloride Level 94 L 98-107 mmol/L Carbon Dioxide Level 30 20-31 mmol/L Anion Gap 9 5-15 Blood Urea Nitrogen 38 H 9-23 mg/dL Creatinine 6.67 H 0.700-1.30 mg/dL Glomerular Filtration Rate Calc 8 >90 mL/min BUN/Creatinine Ratio 5.7 L 10.0-20.0 Serum Glucose 73 L 74-106 mg/dL Calcium Level 9.6 8.7-10.4 mg/dL Phosphorus Level 2.1 L 2.4-5.1 mg/dL Magnesium Level 2.3 1.6-2.6 mg/dL Total Bilirubin 0.5 0.2-1.0 mg/dL Aspartate Amino Transferase (AST) 16 13-40 U/L Alanine Aminotransferase (ALT) < 9 7-40 U/L Alkaline Phosphatase 75 46-116 U/L Total Protein 6.8 5.7-8.2 g/dL Albumin 4.1 3.2-4.8 g/dL Parathyroid Hormone (Intact) 215.8 H 18.4-80.1 pg/mL Troponin I High Sensitivity 77 *H </=54 ng/L Test 11/28/24 14:28 Range/Units B-Type Natriuretic Peptide 770.73 0-100 pg/mL Assessment/Plan Plan Patient is a 79-year-old gentleman who presented to the hospital with episode of shortness of breath and chest tightness. Since arrival, troponin was found to have stayed flat and minimally elevated. Reportedly the patient's oxygen saturation (found by EMS) was low and later responded to oxygen supplementation. Cardiology is involved for cardiac aspects of care. Patient is known to our practice from before and outside. Does have old history of coronary artery disease and has had the last stent in July 2023. He is supposed to stay on aspirin as outpatient. Does have history of subclavian/jugular DVT for which was on Eliquis for awhile (later stopped secondary to repeated GI bleedings). Does have history of chronically elevated troponin. Does have history of end- stage renal disease and is on hemodialysis. Frail gentleman. Not in acute distress. No carotid bruit, no goiter. Lungs: Scattered rhonchi in the lungs, cardiac: Regular, systolic murmur in the apex is heard. Abdomen is soft and distended. Bowel sound is positive. There is no gross mass. Extremities reveal 1+ edema bilaterally. Dorsalis pedis is 2+ bilateral. Past medical history includes end-stage renal disease on hemodialysis, old history of CVA (2019), poor functional capacity, coronary artery disease and status post PCI (last stent in July 2023, ostial LAD), COPD, obstructive sleep apnea, diabetes mellitus, hypertension, anemia (history of repeated transfusions), D-CHF, SVT, pulmonary hypertension (considered type 2), history of pancytopenia (resolved later), history of DVT in upper extremity, dementia, peripheral artery disease, right external iliac artery aneurysm, history of CDT colitis, repeated/significant GI bleedings and ex-smoker. Past medical history also includes DVT in the right upper extremity, history of septic shock, history of pneumonia, sick sinus syndrome and status post pacemaker (Micra/Medtronic) implantation. Echocardiogram of September 11, 2024 (performed in the office) reported ejection fraction of 55-60%, pseudo-normal left ventricular diastolic dysfunction, mild biatrial enlargement, mild mitral regurgitation, tricuspid regurgitation, atrial insufficiency, mild mitral annular calcification and right ventricular systolic pressure of less than 35 mm Hg Echocardiogram of June 05, 2024 reported mild concentric left ventricular hypertrophy, ejection fraction of 45-50%, mild biatrial enlargement, mild aortic insufficiency/tricuspid regurgitation/trace mitral regurgitation. Right ventricular systolic pressure of 48 mm Hg. Echocardiogram of January 2024 had revealed: Ejection fraction of 40-45%, anterior/anteroseptal hypokinesia, biatrial enlargement, right ventricular systolic pressure 45 mm Hg. Echocardiogram October 28, 2023 had revealed mild concentric left ventricular hypertrophy, LVEF of 52% with mild diffuse hypokinesis, dilated RV/LA/RA, bbxq-wu-ijfudtlo aortic insufficiency, mild MR, moderate TR and right ve ntricular systolic pressure of 60 mm Hg Echocardiogram of November 08, 2023 (performed in [facility]) had reported: LVEF of 50%, [id number]-[id number] TR, mild aortic insufficiency and right ventricular systolic pressure of 49 mm Hg Echocardiogram of September 15, 2023 (performed and [facility]) revealed ejection fraction of 45-50% Echocardiogram of March 22, 2023 (performed in the office) revealed ejection fraction of 65-70%, mild concentric left ventricular hypertrophy, moderate nirmal trial enlargement, vcdd-[id number]-kwlzdala MR/TR, mild AI/PI and right ventricular systolic pressure of 66 mm Hg. Left heart catheterization on August 04, 2023 revealed: 1 vessel coronary artery disease and status post PCI (drug-eluting stent deployment of ostial LAD, LVEF of 60% with increased LVEDP, patent stent in mid LAD, type 2 pulmonary hypertension. WBC: 8.8 - 11.7 Hemoglobin: 9.3 - 9.3 Platelet: 144 - 131 Sodium: 134 - 133 Potassium: 5.5 - 6.3 Creatinine: 5.80 - 6.67 BNP: 770.73 Troponin (high sensitive): 86 - 79 - 77 Chest x-ray reviewed: IMPRESSION: Pulmonary vascular congestion. Superimposed atypical infection can not be excluded. EKG reveals sinus rhythm, right bundle branch block Tele reveals sinus rhythm with paced ventricular Echocardiogram revealed: Left ventricle: Mild concentric left ventricular hypertrophy was seen. LVEF was around 60%. There was no gross wall motion abnormality. Pseudo normal LV diastolic dysfunction was observed. Right ventricle: Right ventricle was dilated with preserved systolic function. Both atria were dilated. Aortic valve: Aortic sclerosis with no stenosis was observed. Mild aortic insufficiency was seen. There was mild mitral regurgitation. There was knip-pu-wlscpbfy tricuspid regurgitation. Pulmonary valve was not well visualized. Right ventricular systolic pressure was assessed at 55 mm Hg. There was no pericardial effusion. Patient is a 79-year-old gentleman who presented with acute shortness of breath. High sensitive troponin has remained mildly elevated and flat. Does have old history of mildly elevated troponin. Presentation is less likely acute coronary syndrome. Echocardiogram has been nonrevealing. Does have history of coronary artery disease and last stent was in July 2023. Has been kept on aspirin as outpatient. Also has history of sick sinus syndrome for which has had pacemaker (micra/Medtronic). It is of note that the patient's presentation was shortness of breath and the patient was reportedly having low oxygen saturation. Does have old history of DVT in subclavian/neck. He has history also includes pulmonary hypertension which is considered type 2 (does have history of diastolic heart failure). Ejection fraction was mildly reduced previously and later on improved. Acute respiratory failure Acute on chronic heart failure (possibly diastolic) Coronary artery disease, status post PCI, history Abnormal troponin, considered demand physiology at this point Pulmonary hypertension, type 2 End-stage renal disease on hemodialysis History of DVT, history of Cardiac suggestion for management: Manage in tele Follow-up electrolytes and kidney function tests and correct abnormalities. Continue ASA No indication to repeat ischemic workup at this point. Request for interrogation of the pacemaker (Medtronic/micra) Request for D-dimer. If abnormal, request for CT angio of the lungs and venous Doppler of upper and lower extremities. Hemodialysis as per Nephrology Thank you for consultation Further evaluation and management depends on the above and clinical course A total of 75 minutes was spent reviewing the patient record, examining the patient, making a diagnostic and therapeutic plan, discussing this plan with medical personnel, following up on diagnostic studies and following the patient for clinical stability excluding any and all procedures. At least 50% of this time was spent in direct, spee-eu-sdup contact. Thank you for allowing me to participate in this patient's care. Further recommendations will depend on patient's clinical course. Please do not hesitate to contact me if you have any questions or concerns. This medical document was created using electronic medical record system with [employer] computerized dictation system. Although this document has been carefully reviewed, there may still be some phonetic and typographical errors. These areas are purely typographical due to the imperfection of the software programs, and do not reflect any compromise in the patient's medical care. Plan discussed with: Patient, Other (Nurse) NICOLE KERNS MD Nov 29, 2024 16:50
[2024-11-29 16:55] VITALS: BP 150/53; PULSE 86; RESP 18; TEMP 98.4; O2SAT 90
--- NOTE | 2024-11-29 18:02 | DVH ---
Technique: Real-time ultrasound imaging of the abdomen was performed with grayscale and color Doppler . Indication: Positive hepatitis-B surface antigen Comparison: US ABDOMEN LIMITED on DOS: 02/29/24 Findings: Liver measures 15.2 cm. It is increased in echogenicity and echotexture without focal mass. Portal v ein is normal in caliber and demonstrates normal hepatopetal flow. Gallbladder demonstrates no evidence for cholelithiasis. There is no pericholecystic fluid. The wall thickness is normal. The common bile duct measures 6 mm. No intrahepatic biliary ductal dilatation. The right kidney measures 10.1 cm. There are multiple right renal cysts measuring up to 3.2 cm. The r ight kidney is echogenic in appearance No hydronephrosis or sonographic evidence of nephrolithiasis. The visualized portion of the pancreas is unremarkable. The visualized portion of the IVC is unremarkable. Impression: Echogenic liver which can be seen with hepatic steatosis, cirrhosis. Echogenic right kidney which can be seen with medical renal disease. Numerous right renal cysts ramo uring up to 3.2 cm
[2024-11-29] MEDS ORDERED: CHOL20007 OR (18:36)
[2024-11-29] MEDS ORDERED: LACT10PA2 PO (18:36)
[2024-11-29] MEDS ORDERED: TIZA4CAP PO (18:36)
[2024-11-29] MEDS ORDERED: CALC1TAB92 PO (18:36)
[2024-11-29] MEDS ORDERED: REVE175S IN (18:36)
[2024-11-29] MEDS ORDERED: THIA100T10 PO (18:36)
--- NOTE | 2024-11-29 19:11 | ECG ---
[facility] Test Date: 2024-11-29 Test Time: 04:49:19 Pat Name: LIZBETH LU Department: Room: 0218T Gender: M Content Coordinator: SAVANNAH LEVYB: 1945 Requested By: NARESH BRASHER Order Number: [id number] Reading MD: Noah Alan Measurements Intervals [place] Rate: 86 P: -34 IN: 216 QRS: -91 QRSD: 175 T: 37 QT: 414 QTc: 496 Interpretive Statements Sinus rhythm Borderline prolonged IN interval RBBB and LAFB Electronically Signed On 11-30-2024 19:17:38 PDT by Noah Alan Please click the below link to view image of tracing.
[2024-11-29 20:00] VITALS: PULSE 78; PULSE 82; RESP 20; O2SAT 90
--- NOTE | 2024-11-29 20:45 | DVH ---
Bilateral lower extremity venous duplex Clinical History: R/O Dvt Comparison: US BILAT LOWER DVT on DOS: 06/05/24, US BI LAT UPPER DVT on DOS: 02/19/24, US BILAT LOWER D VT on DOS: 02/17/24 Technique: Duplex Doppler evaluation of the deep venous systems of both lower extremities from the common femora l veins to the popliteal veins including color Doppler and spectral/pulsed waveform analysis was perf ormed. Findings: RIGHT SIDE: The common femoral vein demonstrates appropriate compressibility and waveform variability. There is compressibility/patency of the great saphenous vein at the proximal thigh. The femoral vein demonstrates appropriate compressibility and waveform variability. The deep femoral vein demonstrates appropriate compressibility and waveform variability. The popliteal vein demonstrates appropriate compressibility and waveform variability. There is normal compressibility at the tibioperoneal trunk. LEFT SIDE: The common femoral vein demonstrates appropriate compressibility and waveform variability. There is compressibility/patency of the great saphenous vein at the proximal thigh. The femoral vein demonstrates appropriate compressibility and waveform variability. The deep femoral vein demonstrates appropriate compressibility and waveform variability. The popliteal vein demonstrates appropriate compressibility and waveform variability. There is normal compressibility at the tibioperoneal trunk. Impression: 1. No right or left femoropopliteal venous thrombosis.
--- NOTE | 2024-11-29 20:50 | DVH ---
Upper Extremity Venous Duplex Clinical History: R/O DVT Comparison: US BILAT LOWER DVT on DOS: 06/05/24, US BI LAT UPPER DVT on DOS: 02/19/24, US BILAT LOWER D VT on DOS: 02/17/24 Technique: Duplex Doppler evaluation of the venous system of the right and left lower neck and upper extremity i ncluding color Doppler and spectral/pulsed waveform analysis was performed. Findings: The internal jugular vein demonstrates appropriate compressibility and waveform variability. Right internal jugular vein shows partial compressibility. Left internal jugular vein is compressible show blood flow phasicity. The subclavian vein is patent on color Doppler evaluation without intraluminal thrombus and demonstra sal waveform variability. The visualized portion of the brachiocephalic vein is patent on color Doppler evaluation without intr aluminal thrombus and demonstrates waveform variability. The axillary vein demonstrates appropriate compressibility and waveform variability. The brachial veins demonstrate appropriate compressibility and patency on Doppler evaluation. The basilic vein demonstrates no flow or compressibility of the left basilic vein. The cephalic vein demonstrates appropriate compressibility and patency on Doppler evaluation. Impression: 1. Partial compressibility of the right internal jugular vein. 2. Left basilic vein shows no flow and is noncompressible. 3. If clinical concern/symptoms persist or worsen, short-interval follow-up study is suggested.
[2024-11-29] MEDS: EPOETIN ALFA-EPBX 4,000 UNIT/ML VIAL SC ONE (22:35)
[2024-11-29] MEDS: HYDROcodone-ACET 5/325MG TAB PO PRN (22:54)
[2024-11-30] VITALS (8 sets, daily range): BP systolic 141–198; BP diastolic 65–89; PULSE 66–77; RESP 17–19; TEMP 97.1–98; O2SAT 90–98
[2024-11-30 06:07] LABS: Hepatitis B Core Total Antibod Positive (Negative)
--- NOTE | 2024-11-30 06:57 | DVHPN2 ---
Progress Note - Dictate Date Seen: Nov 30, 2024 Medical Necessity Reason Pt with a Central, PICC or Fol: No vital signs Vital Sign Date Time Temp Pulse Resp B/P (MAP) Pulse Ox O2 Delivery O2 Flow Rate FiO2 11/30/24 05:26 155/60 11/30/24 05:00 97.6 77 18 90 97.6 11/29/24 20:00 Nasal Cannula* 4 36 Total Intake and Output 11/29/24 11/29/24 11/30/24 15:00 23:00 07:00 Intake Total 550 ml 610 ml Output Total 0 ml 0 ml Balance 550 ml 610 ml medications Current Medications Medications Dose Ordered Sig/Nereyda Route Start Time Stop Time Status Last Admin Dose Admin Aspirin 81 mg DAILY PO 11/29/24 10:00 11/29/24 09:26 81 MG Atorvastatin Calcium 20 mg HS PO 11/28/24 22:00 11/29/24 22:54 20 MG Famotidine 10 mg Q12H IV 11/28/24 22:00 11/29/24 22:42 10 MG Clonidine HCl 0.1 mg Q4HP PRN PO 11/28/24 17:00 11/30/24 04:26 0.1 MG Multivit/Ca Carb/ B Cmplx/FA/Prenat 1 tab DAILY PO 11/29/24 10:00 11/29/24 09:26 1 TAB Sevelamer HCl 800 mg TIDWM PO 11/28/24 18:00 11/29/24 18:10 800 MG Diagnostic Test (Pha) 1 strip ACHS 11/28/24 17:00 11/29/24 22:00 1 STRIP Insulin Human Regular ACHS SC 11/28/24 17:00 11/29/24 22:00 2 UNITS Dextrose 50 ml UD PRN IV 11/28/24 17:00 Sodium Chloride 10 ml Q8HR IV 11/28/24 22:00 11/30/24 05:34 10 ML Acetaminophen/ Hydrocodone Bitart 1 tab Q4HP PRN PO 11/28/24 17:00 11/29/24 22:54 1 TAB Ondansetron HCl 4 mg Q4HP PRN IV 11/28/24 17:00 Docusate Sodium 100 mg BIDPRN PRN PO 11/28/24 17:00 Acetaminophen 650 mg Q6HP PRN PO 11/28/24 17:00 Carvedilol 6.25 mg Q12HR PO 11/28/24 22:00 11/29/24 22:54 6.25 MG Duloxetine HCl 30 mg DAILY PO 11/29/24 10:00 11/29/24 09:26 30 MG Nitroglycerin 0.4 mg Q5MINP PRN SL 11/28/24 18:15 Morphine Sulfate 2 mg Q30M PRN IV 11/28/24 18:15 11/29/24 05:07 2 MG Morphine Sulfate 2 mg Q4HPRN PRN IV 11/28/24 18:30 11/28/24 23:05 2 MG Ceftriaxone Sodium 50 ml @ 100 mls/hr DAILY@09 IV 11/30/24 09:00 Doxycycline Hyclate 100 ml @ 50 mls/hr Q12H IV 11/29/24 16:30 11/30/24 04:07 50 MLS/HR laboratory and microbiology Laboratory Tests 11/29/24 05:41 Test 11/29/24 05:41 Range/Units Serum Glucose 73 L 74-106 mg/dL Assessment/Plan Patient is a 79-year-old gentleman who presented to the hospital with episode of shortness of breath and chest tightness. Since arrival, troponin was found to have stayed flat and minimally elevated. Reportedly the patient's oxygen saturation (found by EMS) was low and later responded to oxygen supplementation. Cardiology is involved for cardiac aspects of care. Patient is known to our practice from before and outside. Does have old history of coronary artery disease and has had the last stent in July 2023. He is supposed to stay on aspirin as outpatient. Does have history of subclavian/jugular DVT for which was on Eliquis for awhile (later stopped secondary to repeated GI bleedings). Does have history of chronically elevated troponin. Does have history of end- stage renal disease and is on hemodialysis. Frail gentleman. Not in acute distress. No carotid bruit, no goiter. Lungs: Scattered rhonchi in the lungs, cardiac: Regular, systolic murmur in the apex is heard. Abdomen is soft and distended. Bowel sound is positive. There is no gross mass. Extremities reveal 1+ edema bilaterally. Dorsalis pedis is 2+ bilateral. Past medical history includes end-stage renal disease on hemodialysis, old history of CVA (2018), poor functional capacity, coronary artery disease and status post PCI (last stent in July 2023, ostial LAD), COPD, obstructive sleep apnea, diabetes mellitus, hypertension, anemia (history of repeated transfusions), D-CHF, SVT, pulmonary hypertension (considered type 2), history of pancytopenia (resolved later), history of DVT in upper extremity, dementia, peripheral artery disease, right external iliac artery aneurysm, history of CDT colitis, repeated/significant GI bleedings and ex-smoker. Past medical history also includes DVT in the right upper extremity, history of septic shock, history of pneumonia, sick sinus syndrome and status post pacemaker (Micra/Medtronic) implantation. Echocardiogram of September 11, 2024 (performed in the office) reported ejection fraction of 55-60%, pseudo-normal left ventricular diastolic dysfunction, mild biatrial enlargement, mild mitral regurgitation, tricuspid regurgitation, atrial insufficiency, mild mitral annular calcification and right ventricular systolic pressure of less than 35 mm Hg Echocardiogram of June 05, 2024 reported mild concentric left ventricular hypertrophy, ejection fraction of 45-50%, mild biatrial enlargement, mild aortic insufficiency/tricuspid regurgitation/trace mitral regurgitation. Right ventricular systolic pressure of 48 mm Hg. Echocardiogram of January 2024 had revealed: Ejection fraction of 40-45%, anterior/anteroseptal hypokinesia, biatrial enlargement, right ventricular systolic pressure 45 mm Hg. Echocardiogram October 28, 2023 had revealed mild concentric left ventricular hypertrophy, LVEF of 52% with mild diffuse hypokinesis, dilated RV/LA/RA, qytj-[id number] aortic insufficiency, mild MR, moderate TR and right ventricular systolic pressure of 60 mm Hg Echocardiogram of November 08, 2023 (performed in [facility]) had reported: LVEF of 50%, youxomfs-ol-bvwskf TR, mild aortic insufficiency and right ventricular systolic pressure of 49 mm Hg Echocardiogram of September 15, 2023 (performed and [facility]) revealed ejection fraction of 45-50% Echocardiogram of March 22, 2023 (performed in the office) revealed ejection fraction of 65-70%, mild concentric left ventricular hypertrophy, moderate biatrial enlargement, xegv-[id number] MR/TR, mild AI/PI and right ventricular systolic pressure of 66 mm Hg. Left heart catheterization on August 04, 2023 revealed: 1 vessel coronary artery disease and status post PCI (drug-eluting stent deployment of ostial LAD, LVEF of 60% with increased LVEDP, patent stent in mid LAD, type 2 pulmonary hypertension. WBC: 8.8 - 11.7 Hemoglobin: 9.3 - 9.3 Platelet: 144 - 131 Sodium: 134 - 133 Potassium: 5.5 - 6.3 Creatinine: 5.80 - 6.67 BNP: 770.73 Troponin (high sensitive): 86 - 79 - 77 D-Dimer: 1.09 Chest x-ray reviewed: IMPRESSION: Pulmonary vascular congestion. Superimposed atypical infection can not be excluded. Liver ultrasound revealed: Impression: Echogenic liver which can be seen with hepatic steatosis, cirrhosis. Echogenic right kidney which can be seen with medical renal disease. Numerous right renal cysts measuring up to 3.2 cm Venous duplex of lower ext revealed: Impression: 1. No right or left femoropopliteal venous thrombosis. Venous duplex of upper ext revealed: Impression: 1. Partial compressibility of the right internal jugular vein. 2. Left basilic vein shows no flow and is noncompressible. 3. If clinical concern/symptoms persist or worsen, short- interval follow-up study is suggested. EKG reveals sinus rhythm, right bundle branch block Tele reveals sinus rhythm with paced ventricular Echocardiogram revealed: Left ventricle: Mild concentric left ventricular hypertrophy was seen. LVEF was around 60%. There was no gross wall motion abnormality. Pseudo normal LV diastolic dysfunction was observed. Right ventricle: Right ventricle was dilated with preserved systolic function. Both atria were dilated. Aortic valve: Aortic sclerosis with no stenosis was observed. Mild aortic insufficiency was seen. There was mild mitral regurgitation. There was ncoc-fi-qizkvnol tricuspid regurgitation. Pulmonary valve was not well visualized. Right ventricular systolic pressure was assessed at 55 mm Hg. There was no pericardial effusion. Patient is a 79-year-old gentleman who presented with acute shortness of breath. High sensitive troponin has remained mildly elevated and flat. Does have old history of mildly elevated troponin. Presentation is less likely acute coronary syndrome. Echocardiogram has been nonrevealing. Does have history of coronary artery disease and last stent was in July 2023. Has been kept on aspirin as outpatient. Also has history of sick sinus syndrome for which has had pacemaker (micra/Medtronic). It is of note that the patient's presentation was shortness of breath and the patient was reportedly having low oxygen saturation. Does have old history of DVT in subclavian/neck. He has history also includes pulmonary hypertension which is considered type 2 (does have history of diastolic heart failure). Ejection fraction was mildly reduced previously and later on improved. D-Dimer is elevated. Acute respiratory failure Acute on chronic heart failure (possibly diastolic) Coronary artery disease, status post PCI, history Abnormal troponin, considered demand physiology at this point Pulmonary hypertension, type 2 End-stage renal disease on hemodialysis History of DVT, history of Abnormal D-Dimer Cardiac suggestion for management: Manage in tele Follow-up electrolytes and kidney function tests and correct abnormalities. Request for interrogation of the pacemaker (Medtronic/micra) CT angio of the lungs Consider A/C: Eliquis: 2.5 mg PO BID and stopping ASA for now Hemodialysis as per Nephrology Further evaluation and management depends on the above and clinical course A total of 55 minutes was spent reviewing the patient record, examining the patient, making a diagnostic and therapeutic plan, discussing this plan with medical personnel, following up on diagnostic studies and following the patient for clinical stability excluding any and all procedures. At least 50% of this time was spent in direct, pysc-fw-mcvp contact. Thank you for allowing me to participate in this patient's care. Further recommendations will depend on patient's clinical course. Please do not hesitate to contact me if you have any questions or concerns. This medical document was created using electronic medical record system with [employer] computerized dictation system. Although this document has been carefully reviewed, there may still be some phonetic and typographical errors. These areas are purely typographical due to the imperfection of the software programs, and do not reflect any compromise in the patient's medical care. Plan discussed with: Patient, Other (nurse) NICOLE KERNS MD Nov 30, 2024 06:57
[2024-11-30] MEDS: IOHEXOL 350 MG/ML 100ML IJ ONE (08:37)
--- NOTE | 2024-11-30 08:40 | DVHPN2 ---
Reviewed: Care Plan, H&P, Labs, Medications, Previous Orders Changes from previous H/P or p: No Changes Eyes: No Pain, No Vision change, No Conjunctivae inflammation, No Eyelid inflammation, No Other, No Redness ENT: No Ear pain, No Ear discharge, No Nose pain, No Nose discharge, No Nose congestion, No Mouth pain, No Mouth swelling, No Throat pain, No Throat swelling, No Other Cardiovascular: Chest Pain; No Palpitations, No Orthopnea, No Paroxysmal Noc. Dyspnea, No Edema, No Lt Headedness, No Other Respiratory: No Cough, No Dry; Shortness of breath; No SOB with excertion, No Wheezing, No Hemoptysis, No Pleuritic Pain, No Sputum, No Other Gastrointestinal: No Nausea, No Vomiting, No Abdominal Pain, No Diarrhea, No Constipation, No Melena, No Hematochezia, No Other Genitourinary: No Dysuria, No Frequency, No Incontinence, No Hematuria, No Retention, No Other Musculoskeletal: No other, No neck pain, No shoulder pain, No arm pain, No back pain, No hand pain, No leg pain, No foot pain Skin: No Rash, No Lesions, No Jaundice, No Bruising, No Other Objective Vitals Vital Signs Date Time Temp Pulse Resp B/P (MAP) Pulse Ox O2 Delivery O2 Flow Rate FiO2 11/30/24 05:26 155/60 11/30/24 05:00 97.6 77 18 90 97.6 11/29/24 20:00 Nasal Cannula* 4 36 Intake/Output Intake and Output 11/30/24 07:00 Intake Total 1160 ml Output Total 0 ml Balance 1160 ml Intake Oral 1110 ml IV Total 50 ml Output Urine Total 0 ml # Bowel Movements 1 Medications Current Medications Medications Dose Ordered Sig/Nereyda Route Start Time Stop Time Status Last Admin Dose Admin Aspirin 81 mg DAILY PO 11/29/24 10:00 11/29/24 09:26 81 MG Atorvastatin Calcium 20 mg HS PO 11/28/24 22:00 11/29/24 22:54 20 MG Famotidine 10 mg Q12H IV 11/28/24 22:00 11/29/24 22:42 10 MG Clonidine HCl 0.1 mg Q4HP PRN PO 11/28/24 17:00 11/30/24 04:26 0.1 MG Multivit/Ca Carb/ B Cmplx/FA/Prenat 1 tab DAILY PO 11/29/24 10:00 11/29/24 09:26 1 TAB Sevelamer HCl 800 mg TIDWM PO 11/28/24 18:00 11/29/24 18:10 800 MG Diagnostic Test (Pha) 1 strip ACHS 11/28/24 17:00 11/30/24 06:44 1 STRIP Insulin Human Regular ACHS SC 11/28/24 17:00 11/30/24 06:50 2 UNITS Dextrose 50 ml UD PRN IV 11/28/24 17:00 Sodium Chloride 10 ml Q8HR IV 11/28/24 22:00 11/30/24 05:34 10 ML Acetaminophen/ Hydrocodone Bitart 1 tab Q4HP PRN PO 11/28/24 17:00 11/29/24 22:54 1 TAB Ondansetron HCl 4 mg Q4HP PRN IV 11/28/24 17:00 Docusate Sodium 100 mg BIDPRN PRN PO 11/28/24 17:00 Acetaminophen 650 mg Q6HP PRN PO 11/28/24 17:00 Carvedilol 6.25 mg Q12HR PO 11/28/24 22:00 11/29/24 22:54 6.25 MG Duloxetine HCl 30 mg DAILY PO 11/29/24 10:00 11/29/24 09:26 30 MG Nitroglycerin 0.4 mg Q5MINP PRN SL 11/28/24 18:15 Morphine Sulfate 2 mg Q30M PRN IV 11/28/24 18:15 11/29/24 05:07 2 MG Morphine Sulfate 2 mg Q4HPRN PRN IV 11/28/24 18:30 11/28/24 23:05 2 MG Ceftriaxone Sodium 50 ml @ 100 mls/hr DAILY@09 IV 11/30/24 09:00 Doxycycline Hyclate 100 ml @ 50 mls/hr Q12H IV 11/29/24 16:30 11/30/24 04:07 50 MLS/HR Laboratory Results Laboratory Tests 11/29/24 05:41 Coagulation Test 11/29/24 17:24 D-Dimer, Quantitative 1.09 mg/L FEU (0.0-0.49) H Labs and/or images reviewed: Labs reviewed by me, Image(s) reviewed by me Assessment/Plan Assessment/Plan Acute chest pain rule out coronary artery disease troponin slightly elevated, cardiology consult by Dr. Mondragon appreciated ESRD on hemodialysis: Consult for Dr. Hills History of coronary artery disease Acute CHF exacerbation Acute COPD exacerbation Dementia: Aricept 5 mg p.o.daily Diabetes type 2 Hypertension History of pacemaker Use of home oxygen 2 L per mt Chronic back pain on epidural injections History of cardiac arrest status post intubated ICU stay three weeks August 2023 History of cardiac stents by Dr. Mondragon July 2023 Massive GI bleed February 2024 secondary to Eliquis Per ex- at the bedside took him off of plavix, currently only on baby aspirin DVT bilateral lower extremity ruled out History of DVT right IJ was on Eliquis and discontinued secondary to bleeding Ex- and caregiver Maribell [phone] at bedside HANS Moore at bedside Time taken 70 minutes Advanced care planning time [address] Felipe Potts PCP Dr Yessica Adame Patient is full code Plan discussed with: Patient My Orders Orders - NARESH BRASHER MD Procedure Category Date Status Time * Cardiology Consult CONS 11/29/24 Transmitted 13:31 Date of Service: Nov 30, 2024 Billing Provider: NARESH BRASHER MD Common Visit Codes: [id number] CARE 30-74 MIN NARESH BRASHER MD Nov 30, 2024 08:40
[2024-11-30] MEDS: cefTRIAXone 1GM/50ML D5W 50 ML IV SCH (09:26)
--- NOTE | 2024-11-30 09:55 | DVH ---
CLINICAL INFORMATION: Pulmonary embolism. No other clinical information provided. Indication for nallely or chest radiograph was shortness of breath. TECHNIQUE: Axial CTA images of the chest were obtained after the uneventful administration of 100 mL of Omnipaque 350 IV contrast. Coronal and sagittal reformatted images and MIP images were obtained, r eviewed, and stored. One or more of the following dose reduction techniques were used: Automated expo sure control. Adjustment of mA and/or kV according to patient size. CTDIvol = 26.64 mGy DLP = 487.47 mGy-cm COMPARISON: CT CT ANGIO CHEST CONTRAST on DOS: 06/05/24, CT CT ANGIO CHEST CONTRAST on DOS: 02/18/24 FINDINGS: Pulmonary arteries: No central or lobar pulmonary embolism. Evaluation for segmental or subsegmental pulmonary emboli is limited due to respiratory motion artifact. Aorta: Moderate atherosclerotic calcification. No thoracic aortic aneurysm. Cardiac: Glpj-mi-jaggdcmf cardiomegaly. Dense coronary artery calcification and/or stents. Mediastinum/asif: Mildly prominent mediastinal lymph nodes in the right lower paratracheal, AP window , and prevascular stations, measuring up to 1.2 cm in short axis dimension of the right lower paratra cheal station, minimally changed compared to the prior exam, likely reactive lymph nodes. Lungs: Respiratory motion artifact limits evaluation. Scattered areas of ground-glass attenuation are seen, may be infectious or inflammatory in nature. There is dependent atelectasis in the lower lobes . Moderate emphysematous changes. No focal consolidation. No pneumothorax or pleural effusion visuali zed. Chest wall: No mass or other abnormality. Upper abdomen: Multiple bilateral renal cysts partially visualized. Focal area of low-density of the pancreatic tail measuring up to 3.5 cm, possible cyst or cystic neoplasm. Bones: No acute fracture or suspicious intraosseous lesions. IMPRESSION: 1. No central or lobar pulmonary embolism. Evaluation for segmental or subsegmental pulmonary emboli is limited due to respiratory motion artifact. 2. Scattered areas of ground-glass attenuation are seen in the lungs, may be partly due to motion art ifact. Infectious or inflammatory etiology not excluded. No focal consolidation. 3. Cardiomegaly. 4. Low-density structure of the pancreatic tail measuring up to 3.5 cm, possible cyst or cystic neopl asm. Nonemergent pancreatic protocol MRI recommended to further characterize. 5. Additional findings as detailed above.
[2024-11-30] MEDS: DOCUSATE SOD 100 MG CAP PO PRN (20:50)
[2024-11-30] MEDS: DONEPEZIL HYDROCHLORIDE 5 MG TAB PO ONE (23:46)
[2024-12-01] VITALS (7 sets, daily range): BP systolic 96–192; BP diastolic 49–82; PULSE 57–68; RESP 17–19; TEMP 96.9–97.9; O2SAT 91–98
--- NOTE | 2024-12-01 07:53 | DVHPN2 ---
Progress Note - Dictate Date Seen: Dec 01, 2024 Medical Necessity Reason Pt with a Central, PICC or Fol: No vital signs Vital Sign Date Time Temp Pulse Resp B/P (MAP) Pulse Ox O2 Delivery O2 Flow Rate FiO2 12/01/24 07:00 157/82 12/01/24 05:00 97.8 68 19 91 97.8 11/30/24 20:00 Nasal Cannula* 4 36 Total Intake and Output 11/30/24 11/30/24 12/01/24 15:00 23:00 07:00 Intake Total 900 ml 200 ml Balance 900 ml 200 ml medications Current Medications Medications Dose Ordered Sig/Nereyda Route Start Time Stop Time Status Last Admin Dose Admin Aspirin 81 mg DAILY PO 11/29/24 10:00 11/30/24 09:27 81 MG Atorvastatin Calcium 20 mg HS PO 11/28/24 22:00 11/30/24 20:49 20 MG Famotidine 10 mg Q12H IV 11/28/24 22:00 11/30/24 23:46 10 MG Clonidine HCl 0.1 mg Q4HP PRN PO 11/28/24 17:00 12/01/24 05:23 0.1 MG Multivit/Ca Carb/ B Cmplx/FA/Prenat 1 tab DAILY PO 11/29/24 10:00 11/30/24 09:27 1 TAB Sevelamer HCl 800 mg TIDWM PO 11/28/24 18:00 11/30/24 16:54 800 MG Diagnostic Test (Pha) 1 strip ACHS 11/28/24 17:00 12/01/24 07:11 1 STRIP Insulin Human Regular ACHS SC 11/28/24 17:00 12/01/24 00:00 3 UNITS Dextrose 50 ml UD PRN IV 11/28/24 17:00 Sodium Chloride 10 ml Q8HR IV 11/28/24 22:00 12/01/24 05:10 10 ML Acetaminophen/ Hydrocodone Bitart 1 tab Q4HP PRN PO 11/28/24 17:00 11/30/24 20:50 1 TAB Ondansetron HCl 4 mg Q4HP PRN IV 11/28/24 17:00 Docusate Sodium 100 mg BIDPRN PRN PO 11/28/24 17:00 11/30/24 20:50 100 MG Acetaminophen 650 mg Q6HP PRN PO 11/28/24 17:00 Carvedilol 6.25 mg Q12HR PO 11/28/24 22:00 11/30/24 20:52 6.25 MG Duloxetine HCl 30 mg DAILY PO 11/29/24 10:00 11/30/24 09:27 30 MG Nitroglycerin 0.4 mg Q5MINP PRN SL 11/28/24 18:15 Morphine Sulfate 2 mg Q30M PRN IV 11/28/24 18:15 11/29/24 05:07 2 MG Morphine Sulfate 2 mg Q4HPRN PRN IV 11/28/24 18:30 11/30/24 17:25 2 MG Ceftriaxone Sodium 50 ml @ 100 mls/hr DAILY@09 IV 11/30/24 09:00 11/30/24 09:26 100 MLS/HR Doxycycline Hyclate 100 ml @ 50 mls/hr Q12H IV 11/29/24 16:30 12/01/24 04:59 50 MLS/HR Donepezil HCl 5 mg HS PO 12/01/24 22:00 Cancel Donepezil HCl 5 mg 1800 PO 12/01/24 18:00 laboratory and microbiology Laboratory Tests 11/29/24 05:41 Test 11/29/24 05:41 Range/Units Serum Glucose 73 L 74-106 mg/dL Assessment/Plan Patient is a 79-year-old gentleman who presented to the hospital with episode of shortness of breath and chest tightness. Since arrival, troponin was found to have stayed flat and minimally elevated. Reportedly the patient's oxygen saturation (found by EMS) was low and later responded to oxygen supplementation. Cardiology is involved for cardiac aspects of care. Patient is known to our practice from before and outside. Does have old history of coronary artery disease and has had the last stent in July 2023. He is supposed to stay on aspirin as outpatient. Does have history of subclavian/jugular DVT for which was on Eliquis for awhile (later stopped secondary to repeated GI bleedings). Does have history of chronically elevated troponin. Does have history of end- stage renal disease and is on hemodialysis. Frail gentleman. Not in acute distress. No carotid bruit, no goiter. Lungs: Scattered rhonchi in the lungs, cardiac: Regular, systolic murmur in the apex is heard. Abdomen is soft and distended. Bowel sound is positive. There is no gross mass. Extremities reveal 1+ edema bilaterally. Dorsalis pedis is 2+ bilateral. Past medical history includes end-stage renal disease on hemodialysis, old history of CVA (2019), poor functional capacity, coronary artery disease and status post PCI (last stent in July 2023, ostial LAD), COPD, obstructive sleep apnea, diabetes mellitus, hypertension, anemia (history of repeated transfusions), D-CHF, SVT, pulmonary hypertension (considered type 2), history of pancytopenia (resolved later), history of DVT in upper extremity, dementia, peripheral artery disease, right external iliac artery aneurysm, history of CDT colitis, repeated/significant GI bleedings and ex-smoker. Past medical history also includes DVT in the right upper extremity, history of septic shock, history of pneumonia, sick sinus syndrome and status post pacemaker (Micra/Medtronic) implantation. Echocardiogram of September 11, 2024 (performed in the office) reported ejection fraction of 55-60%, pseudo-normal left ventricular diastolic dysfunction, mild biatrial enlargement, mild mitral regurgitation, tricuspid regurgitation, atrial insufficiency, mild mitral annular calcification and right ventricular systolic pressure of less than 35 mm Hg Echocardiogram of June 05, 2024 reported mild concentric left ventricular hypertrophy, ejection fraction of 45-50%, mild biatrial enlargement, mild aortic insufficiency/tricuspid regurgitation/trace mitral regurgitation. Right ventricular systolic pressure of 48 mm Hg. Echocardiogram of January 2024 had revealed: Ejection fraction of 40-45%, anterior/anteroseptal hypokinesia, biatrial enlargement, right ventricular systolic pressure 45 mm Hg. Echocardiogram October 28, 2023 had revealed mild concentric left ventricular hypertrophy, LVEF of 52% with mild diffuse hypokinesis, dilated RV/LA/RA, aonc-em-djhtpjss aortic insufficiency, mild MR, moderate TR and right ventricular systolic pressure of 60 mm Hg Echocardiogram of November 08, 2023 (performed in [facility]) had reported: LVEF of 50%, [id number] TR, mild aortic insufficiency and right ventricular systolic pressure of 49 mm Hg Echocardiogram of September 15, 2023 (performed and [facility]) revealed ejection fraction of 45-50% Echocardiogram of March 22, 2023 (performed in the office) revealed ejection fraction of 65-70%, mild concentric left ventricular hypertrophy, moderate biatrial enlargement, exld-rh-chcpemty MR/TR, mild AI/PI and right ventricular systolic pressure of 66 mm Hg. Left heart catheterization on August 04, 2023 revealed: 1 vessel coronary artery disease and status post PCI (drug-eluting stent deployment of ostial LAD, LVEF of 60% with increased LVEDP, patent stent in mid LAD, type 2 pulmonary hypertension. WBC: 8.8 - 11.7 Hemoglobin: 9.3 - 9.3 Platelet: 144 - 131 Sodium: 134 - 133 Potassium: 5.5 - 6.3 Creatinine: 5.80 - 6.67 BNP: 770.73 Troponin (high sensitive): 86 - 79 - 77 D-Dimer: 1.09 Chest x-ray reviewed: IMPRESSION: Pulmonary vascular congestion. Superimposed atypical infection can not be excluded. Liver ultrasound revealed: Impression: Echogenic liver which can be seen with hepatic steatosis, cirrhosis. Echogenic right kidney which can be seen with medical renal disease. Numerous right renal cysts measuring up to 3.2 cm Venous duplex of lower ext revealed: Impression: 1. No right or left femoropopliteal venous thrombosis. Venous duplex of upper ext revealed: Impression: 1. Partial compressibility of the right internal jugular vein. 2. Left basilic vein shows no flow and is noncompressible. 3. If clinical concern/symptoms persist or worsen, short- interval follow-up study is suggested. CTA of lungs: Pulmonary arteries: No central or lobar pulmonary embolism. Evaluation for segmental or subsegmental pulmonary emboli is limited due to respiratory motion artifact. Aorta: Moderate atherosclerotic calcification. No thoracic aortic aneurysm. Cardiac: Ilbe-ty-cijlvafj cardiomegaly. Dense coronary artery calcification and/or stents. Mediastinum/asif: Mildly prominent mediastinal lymph nodes in the right lower paratracheal, AP window, and prevascular stations, measuring up to 1.2 cm in short axis dimension of the right lower paratracheal station, minimally changed compared to the prior exam, likely reactive lymph nodes. Lungs: Respiratory motion artifact limits evaluation. Scattered areas of ground-glass attenuation are seen, may be infectious or inflammatory in nature. There is dependent atelectasis in the lower lobes. Moderate emphysematous changes. No focal consolidation. No pneumothorax or pleural effusion visualized. Chest wall: No mass or other abnormality. Upper abdomen: Multiple bilateral renal cysts partially visualized. Focal area of low-density of the pancreatic tail measuring up to 3.5 cm, possible cyst or cystic neoplasm. Bones: No acute fracture or suspicious intraosseous lesions. IMPRESSION: 1. No central or lobar pulmonary embolism. Evaluation for segmental or subsegmental pulmonary emboli is limited due to respiratory motion artifact. 2. Scattered areas of ground-glass attenuation are seen in the lungs, may be partly due to motion artifact. Infectious or inflammatory etiology not excluded. No focal consolidation. 3. Cardiomegaly. 4. Low-density structure of the pancreatic tail measuring up to 3.5 cm, possible cyst or cystic neoplasm. Nonemergent pancreatic protocol MRI recommended to further characterize. 5. Additional findings as detailed above. EKG reveals sinus rhythm, right bundle branch block Tele reveals sinus rhythm with paced ventricular Echocardiogram revealed: Left ventricle: Mild concentric left ventricular hypertrophy was seen. LVEF was around 60%. There was no gross wall motion abnormality. Pseudo normal LV diastolic dysfunction was observed. Right ventricle: Right ventricle was dilated with preserved systolic function. Both atria were dilated. Aortic valve: Aortic sclerosis with no stenosis was observed. Mild aortic insufficiency was seen. There was mild mitral regurgitation. There was nmsz-pf-ubtxyepx tricuspid regurgitation. Pulmonary valve was not well visualized. Right ventricular systolic pressure was assessed at 55 mm Hg. There was no pericardial effusion. Patient is a 79-year-old gentleman who presented with acute shortness of breath. High sensitive troponin has remained mildly elevated and flat. Does have old history of mildly elevated troponin. Presentation is less likely acute coronary syndrome. Echocardiogram has been nonrevealing. Does have history of coronary artery disease and last stent was in July 2023. Has been kept on aspirin as outpatient. Also has history of sick sinus syndrome for which has had pacemaker (micra/Medtronic). It is of note that the patient's presentation was shortness of breath and the patient was reportedly having low oxygen saturation. Does have old history of DVT in subclavian/neck. He has history also includes pulmonary hypertension which is considered type 2 (does have history of diastolic heart failure). Ejection fraction was mildly reduced previously and later on improved. D-Dimer is elevated. Pulmonary Emboli was ruled out. Found to have possible pancreatic tail cyst Vs neoplasm. Acute respiratory failure Acute on chronic heart failure (possibly diastolic) Coronary artery disease, status post PCI, history Abnormal troponin, considered demand physiology at this point Pulmonary hypertension, type 2 End-stage renal disease on hemodialysis History of DVT, history of Abnormal D-Dimer Possible pancreatic tail cyst Vs neoplasm Cardiac suggestion for management: Manage in tele Follow-up electrolytes and kidney function tests and correct abnormalities. Awaiting interrogation of the pacemaker (Medtronic/Micra) Pancreatic protocol MRI GI consult for pancreas finding Consider A/C: Family refused Eliquis and agreed with low dose Xarelto (10 mg with dinner). Stop ASA Hemodialysis as per Nephrology Further evaluation and management depends on the above and clinical course A total of 55 minutes was spent reviewing the patient record, examining the patient, making a diagnostic and therapeutic plan, discussing this plan with medical personnel, following up on diagnostic studies and following the patient for clinical stability excluding any and all procedures. At least 50% of this time was spent in direct, bhso-vi-uinm contact. Thank you for allowing me to participate in this patient's care. Further recommendations will depend on patient's clinical course. Please do not hesitate to contact me if you have any questions or concerns. This medical document was created using electronic medical record system with [employer] computerized dictation system. Although this document has been carefully reviewed, there may still be some phonetic and typographical errors. These areas are purely typographical due to the imperfection of the software programs, and do not reflect any compromise in the patient's medical care. Plan discussed with: Patient, Other (nurse) NICOLE KERNS MD Dec 01, 2024 07:53
--- NOTE | 2024-12-01 08:34 | DVHPN2 ---
Reviewed: Care Plan, H&P, Labs, Medications, Previous Orders Changes from previous H/P or p: No Changes Eyes: No Pain, No Vision change, No Conjunctivae inflammation, No Eyelid inflammation, No Other, No Redness ENT: No Ear pain, No Ear discharge, No Nose pain, No Nose discharge, No Nose congestion, No Mouth pain, No Mouth swelling, No Throat pain, No Throat swelling, No Other Cardiovascular: Chest Pain; No Palpitations, No Orthopnea, No Paroxysmal Noc. Dyspnea, No Edema, No Lt Headedness, No Other Respiratory: No Cough, No Dry; Shortness of breath; No SOB with excertion, No Wheezing, No Hemoptysis, No Pleuritic Pain, No Sputum, No Other Gastrointestinal: No Nausea, No Vomiting, No Abdominal Pain, No Diarrhea, No Constipation, No Melena, No Hematochezia, No Other Genitourinary: No Dysuria, No Frequency, No Incontinence, No Hematuria, No Retention, No Other Musculoskeletal: No other, No neck pain, No shoulder pain, No arm pain, No back pain, No hand pain, No leg pain, No foot pain Skin: No Rash, No Lesions, No Jaundice, No Bruising, No Other Objective Vitals Vital Signs Date Time Temp Pulse Resp B/P (MAP) Pulse Ox O2 Delivery O2 Flow Rate FiO2 12/01/24 07:00 157/82 12/01/24 05:00 97.8 68 19 91 97.8 11/30/24 20:00 Nasal Cannula* 4 36 Intake/Output Intake and Output 12/01/24 07:00 Intake Total 1100 ml Balance 1100 ml Intake Oral 1000 ml IV Total 100 ml Medications Current Medications Medications Dose Ordered Sig/Nereyda Route Start Time Stop Time Status Last Admin Dose Admin Aspirin 81 mg DAILY PO 11/29/24 10:00 11/30/24 09:27 81 MG Atorvastatin Calcium 20 mg HS PO 11/28/24 22:00 11/30/24 20:49 20 MG Famotidine 10 mg Q12H IV 11/28/24 22:00 11/30/24 23:46 10 MG Clonidine HCl 0.1 mg Q4HP PRN PO 11/28/24 17:00 12/01/24 05:23 0.1 MG Multivit/Ca Carb/ B Cmplx/FA/Prenat 1 tab DAILY PO 11/29/24 10:00 11/30/24 09:27 1 TAB Sevelamer HCl 800 mg TIDWM PO 11/28/24 18:00 11/30/24 16:54 800 MG Diagnostic Test (Pha) 1 strip ACHS 11/28/24 17:00 12/01/24 07:11 1 STRIP Insulin Human Regular ACHS SC 11/28/24 17:00 12/01/24 00:00 3 UNITS Dextrose 50 ml UD PRN IV 11/28/24 17:00 Sodium Chloride 10 ml Q8HR IV 11/28/24 22:00 12/01/24 05:10 10 ML Acetaminophen/ Hydrocodone Bitart 1 tab Q4HP PRN PO 11/28/24 17:00 11/30/24 20:50 1 TAB Ondansetron HCl 4 mg Q4HP PRN IV 11/28/24 17:00 Docusate Sodium 100 mg BIDPRN PRN PO 11/28/24 17:00 11/30/24 20:50 100 MG Acetaminophen 650 mg Q6HP PRN PO 11/28/24 17:00 Carvedilol 6.25 mg Q12HR PO 11/28/24 22:00 11/30/24 20:52 6.25 MG Duloxetine HCl 30 mg DAILY PO 11/29/24 10:00 11/30/24 09:27 30 MG Nitroglycerin 0.4 mg Q5MINP PRN SL 11/28/24 18:15 Morphine Sulfate 2 mg Q30M PRN IV 11/28/24 18:15 11/29/24 05:07 2 MG Morphine Sulfate 2 mg Q4HPRN PRN IV 11/28/24 18:30 11/30/24 17:25 2 MG Ceftriaxone Sodium 50 ml @ 100 mls/hr DAILY@09 IV 11/30/24 09:00 11/30/24 09:26 100 MLS/HR Doxycycline Hyclate 100 ml @ 50 mls/hr Q12H IV 11/29/24 16:30 12/01/24 04:59 50 MLS/HR Donepezil HCl 5 mg HS PO 12/01/24 22:00 Cancel Donepezil HCl 5 mg 1800 PO 12/01/24 18:00 Laboratory Results Laboratory Tests 11/29/24 05:41 Microbiology Microbiology Date/Time Source Procedure Growth Status 11/29/24 17:31 Blood Blood Culture - Preliminary NO GROWTH AFTER 24 HOURS OF INCUBATION. Resulted Labs and/or images reviewed: Labs reviewed by me, Image(s) reviewed by me Assessment/Plan Assessment/Plan Acute chest pain rule out coronary artery disease troponin slightly elevated, cardiology consult by Dr. Mondragon appreciated ESRD on hemodialysis: Consult for Dr. Hills History of coronary artery disease Acute CHF exacerbation Acute COPD exacerbation Dementia: Aricept 5 mg p.o.daily Diabetes type 2 Hypertension History of pacemaker pacemaker interrogation pending Use of home oxygen 2 L per mt Chronic back pain on epidural injections History of cardiac arrest status post intubated ICU stay three weeks August 2023 History of cardiac stents by Dr. Mondragon July 2023 Massive GI bleed February 2024 secondary to Eliquis Per ex- at the bedside took him off of plavix, currently only on baby aspirin DVT bilateral lower extremity ruled out History of DVT right IJ . Cardiology Dr. Mondragon spoke with the family and placed on Xarelto 10 mg p.o.daily Ex- and caregiver Maribell [phone] at bedside HANS Moore at bedside Time taken 50 minutes Advanced care planning time [address] Felipe Potts PCP Dr Yessica Adame Patient is full code Plan discussed with: Patient Date of Service: Dec 01, 2024 Billing Provider: NARESH BRASHER MD Common Visit Codes: 54099-[id number] CARE 30-74 MIN NARESH BRASHER MD Dec 01, 2024 08:34
[2024-12-01] MEDS ORDERED: RIVAROXABAN 10 MG TAB PO SCH (10:00)
--- NOTE | 2024-12-01 10:47 | DVHPN2 ---
Progress Note Date Seen: Dec 01, 2024 Resident Creating Document: ANNA MARIE ESPINOSA RESIDENT Medical Necessity Reason Pt with a Central, PICC or Fol: No Subjective Review of Systems This is a 79-year-old male with ESRD on hemodialysis Wednesday/Wednesday/Wednesday for the past 5 years, diabetes mellitus type 2 for the past 20 years, dementia, COPD on home oxygen, coronary artery stent status post 2 PERLA 1 year back on aspirin therapy, history of C diff and pacemaker who presented to the ER with a chief complaint of shortness of breaths. Patient started to experience shortness of breaths 4 days back and he was saturating in the low 80s. Patient also reported left-sided chest pain which was stabbing, radiated to the neck and the left shoulder, related to exertion, but he said that it is not similar to the chest pain he had when he had [place]. Patient denies fevers/chills/nausea/vomiting at this time. Per patient's partner, patient had history of hep C and was treated with interferon in 2006. Patient received vaccination for hepatitis-B last year. Nephrology consulted for ESRD on hemodialysis 11/29 - Patient seen and examined at the bedside. WBC 11.7. Started ceftriaxone plus doxycycline, ordered blood cultures. 11/30 - Patient seen and examined at the bedside. Labs ordered, HD today. Objective vital signs Vital Sign Date Time Temp Pulse Resp B/P (MAP) Pulse Ox O2 Delivery O2 Flow Rate FiO2 12/01/24 09:36 94 157/82 12/01/24 08:45 96.9 17 93 96.9 11/30/24 20:00 Nasal Cannula* 4 36 Total Intake and Output 11/30/24 11/30/24 12/01/24 15:00 23:00 07:00 Intake Total 900 ml 200 ml Balance 900 ml 200 ml medications Current Medications Medications Dose Ordered Sig/Nereyda Route Start Time Stop Time Status Last Admin Dose Admin Atorvastatin Calcium 20 mg HS PO 11/28/24 22:00 11/30/24 20:49 20 MG Famotidine 10 mg Q12H IV 11/28/24 22:00 12/01/24 09:37 10 MG Clonidine HCl 0.1 mg Q4HP PRN PO 11/28/24 17:00 12/01/24 05:23 0.1 MG Multivit/Ca Carb/ B Cmplx/FA/Prenat 1 tab DAILY PO 11/29/24 10:00 12/01/24 09:36 1 TAB Sevelamer HCl 800 mg TIDWM PO 11/28/24 18:00 12/01/24 09:36 800 MG Diagnostic Test (Pha) 1 strip ACHS 11/28/24 17:00 12/01/24 07:11 1 STRIP Insulin Human Regular ACHS SC 11/28/24 17:00 12/01/24 00:00 3 UNITS Dextrose 50 ml UD PRN IV 11/28/24 17:00 Sodium Chloride 10 ml Q8HR IV 11/28/24 22:00 12/01/24 05:10 10 ML Acetaminophen/ Hydrocodone Bitart 1 tab Q4HP PRN PO 11/28/24 17:00 11/30/24 20:50 1 TAB Ondansetron HCl 4 mg Q4HP PRN IV 11/28/24 17:00 Docusate Sodium 100 mg BIDPRN PRN PO 11/28/24 17:00 11/30/24 20:50 100 MG Acetaminophen 650 mg Q6HP PRN PO 11/28/24 17:00 Carvedilol 6.25 mg Q12HR PO 11/28/24 22:00 12/01/24 09:36 6.25 MG Duloxetine HCl 30 mg DAILY PO 11/29/24 10:00 12/01/24 09:37 30 MG Nitroglycerin 0.4 mg Q5MINP PRN SL 11/28/24 18:15 Morphine Sulfate 2 mg Q30M PRN IV 11/28/24 18:15 12/01/24 08:43 2 MG Morphine Sulfate 2 mg Q4HPRN PRN IV 11/28/24 18:30 11/30/24 17:25 2 MG Ceftriaxone Sodium 50 ml @ 100 mls/hr DAILY@09 IV 11/30/24 09:00 12/01/24 09:36 100 MLS/HR Doxycycline Hyclate 100 ml @ 50 mls/hr Q12H IV 11/29/24 16:30 12/01/24 04:59 50 MLS/HR Donepezil HCl 5 mg HS PO 12/01/24 22:00 Cancel Donepezil HCl 5 mg 1800 PO 12/01/24 18:00 Patient Own Medication 10 mg DAILY PO 12/01/24 10:00 UNV Rivaroxaban 10 mg DAILY PO 12/01/24 18:00 Examination Patient lying in bed, in no acute distress. Patient has a right upper arm fistula General: Overweight, afebrile, palor, mucosae are moist Cardiovascular: Regular S1 and S2. No murmurs, gallops or rubs. No JVD elevation. No pedal edema Respiratory: Decreased bibasilar breath sounds, coarse breath sounds, on 4 L oxygen Abdomen: Soft, nontender, nondistended, normoactive bowel sounds, no rebound tenderness, no organomegaly, no masses Genitourinary: Deferred MSK/skin: Mobilizes 4 limbs. Skin is dry and warm Neurological: No motor, no sensitive deficits, normal speech. Pupils are isocoric and reactive. Psych/Mental Status: A/Ox3 laboratory and microbiology Laboratory Tests 11/29/24 05:41 Test 11/29/24 05:41 Range/Units Serum Glucose 73 L 74-106 mg/dL Microbiology Date/Time Source Procedure Growth Status 11/29/24 17:31 Blood Blood Culture - Preliminary NO GROWTH AFTER 24 HOURS OF INCUBATION. 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 Felipe Potts 2 days ago , but he did not see the patient. We will continue to F/U, patient undergoing hemodialysis today. Last hemodialysis 11/29-3 L taken out. Continue hemodialysis Wednesday/Wednesday/Wednesday. Positive HbsAg, Hep C Ab. HIV negative, AFP unremarkable GI consultation appreciated-MRI pancreatic protocol pending. IV ceftriaxone and doxycycline, blood culture negative prelim Monitor H&H, LAbs in AM Fluid restriction Discussed with patient in which all questions have been answered Discussed with Dr. Henning Addendum Patient seen and examined, plan discussed with resident. Agree with above, we will follow closely I was repaged today to follow this patient as Dr. Felipe Potts has not seen the patient despite consult being sent per hospital staff Given hyperkalemia urgent dialysis has been arranged patient is seen on dialysis Next dialysis Wednesday versus Wednesday Patient can not have MRI contrast given high-risk for nephrogenic fibrosis Plan discussed with: Patient My Orders My Orders Orders - ANNA MARIE ESPINOSA Procedure Category Date Status Time Phosphorus LAB 12/01/24 Verified 10:45 Complete Blood Count LAB 12/01/24 Verified 10:45 Comprehensive LAB 12/01/24 Verified Metabolic Panel 10:45 ANNA MARIE ESPINOSA Dec 01, 2024 10:47 CARLOS MANUEL HENNING MD Dec 01, 2024 19:54
[2024-12-01 11:55] LABS: Hemoglobin 7.9 g/dL (13.5-17.5); Mean Corpuscular Volume 93.2 fL (80.0-100.0)
[2024-12-01 11:57] LABS: Hematocrit 23.1 % (41.0-53.0); Mean Corpuscular Hemoglobin 31.9 pg (28.0-32.0); Nucleated Red Blood Cells % 0.0 %
[2024-12-01 12:16] LABS: Albumin 3.8 g/dL (3.2-4.8); Alkaline Phosphatase 66 U/L (46-116); Anion Gap 10 (5-15); BUN/Creatinine Ratio 8.8 (10.0-20.0); Calcium 9.5 mg/dL (8.7-10.4); Carbon Dioxide 26 mmol/L (20-31); Total Protein 6.6 g/dL (5.7-8.2)
[2024-12-01 12:18] LABS: Alanine Aminotransferase < 9 U/L (7-40); Bilirubin, Total 0.2 mg/dL (0.2-1.0); Blood Urea Nitrogen 63 mg/dL (9-23); Chloride 91 mmol/L (98-107); Glucose 126 mg/dL (74-106); Potassium 5.5 mmol/L (3.5-5.1); Sodium 127 mmol/L (136-145)
--- NOTE | 2024-12-01 14:04 | DVHINCON2 ---
GI Consult Consult Note GI consult note Date of Consultation: 12/01/2024 Chief Complaint: Pancreatic cyst Referring Physician: Dr. Jeramy Brasher H&P: 79-year-old male with past medical history of CHF, CAD, COPD, dementia, DM, ESRD on dialysis, hypertension admitted with complains of chest pain. Patient denies abdominal pain. No nausea or vomiting. Denies melena or red blood in stool. Patient diagnosed with pancreatic cyst and has been having this monitored on a regular basis per patient Past Medical History: CAD, CHF, COPD, Dementia, DM, ESRD, HTN Past Surgical History: Hernia Repair, Pacemaker, Tonsillectomy Social History: Quit smoking, no drinking ETOH and use of illegal drugs. Family History: Noncontributory Review of Systems: Constitutional: no fever, chill, weight loss HEENT: no eye pain, no hearing loss, no oral lesion, no scleral icterus Heart: no chest pain, no chest pressure Lung: no cough, no dyspnea with exertion Abdomen: see HPI Physical exam: General: NAD, AAOX3 Chest: lung hernandez clear to auscultation Heart: RRR, no murmur Abdomen: non-distended, no tenderness to palpation, +BS Labs: Labs Test 12/01/24 12:14 12/01/24 11:44 11/29/24 17:24 11/29/24 11:24 Range/Units POC Glucose 136 H 70-106 mg/dl White Blood Count 4.4 # 4.4-10.8 10^3/uL Red Blood Count 2.48 L 4.5-5.90 10^6/uL Hemoglobin 7.9 #L 13.5-17.5 g/dL Hematocrit 23.1 #L 41.0-53.0 % Mean Corpuscular Volume 93.2 80.0-100.0 fL Mean Corpuscular Hemoglobin 31.9 28.0-32.0 pg Mean Corpuscular Hemoglobin Concent 34.2 32.0-36.0 g/dL Red Cell Distribution Width 18.6 H 11.8-14.3 % Platelet Count 118 L 140-450 10^3/uL Mean Platelet Volume 7.6 6.9-10.8 fL Neutrophils (%) (Auto) 61.8 37.0-80.0 % Lymphocytes (%) (Auto) 16.6 10.0-50.0 % Monocytes (%) (Auto) 15.5 H 0.0-12.0 % Eosinophils (%) (Auto) 5.6 0.0-7.0 % Basophils (%) (Auto) 0.5 0.0-2.0 % Neutrophils # (Auto) 2.7 1.6-8.6 10 ^3/uL Lymphocytes # (Auto) 0.7 0.4-5.4 10 ^3/uL Monocytes # (Auto) 0.7 0-1.3 10 ^3/uL Eosinophils # (Auto) 0.2 0-0.8 10 ^3/uL Basophils # (Auto) 0 0-0.2 10 ^3/uL Nucleated Red Blood Cells 0.0 % Sodium Level 127 #L 136-145 mmol/L Potassium Level 5.5 H 3.5-5.1 mmol/L Chloride Level 91 L 98-107 mmol/L Carbon Dioxide Level 26 20-31 mmol/L Anion Gap 10 5-15 Blood Urea Nitrogen 63 H 9-23 mg/dL Creatinine 7.20 H 0.700-1.30 mg/dL Glomerular Filtration Rate Calc 7 >90 mL/min BUN/Creatinine Ratio 8.8 L 10.0-20.0 Serum Glucose 126 H 74-106 mg/dL Calcium Level 9.5 8.7-10.4 mg/dL Phosphorus Level 2.9 2.4-5.1 mg/dL Total Bilirubin 0.2 0.2-1.0 mg/dL Aspartate Amino Transferase (AST) 13 13-40 U/L Alanine Aminotransferase (ALT) < 9 7-40 U/L Alkaline Phosphatase 66 46-116 U/L Total Protein 6.6 5.7-8.2 g/dL Albumin 3.8 3.2-4.8 g/dL D-Dimer, Quantitative 1.09 H 0.0-0.49 mg/L FEU Tumor Marker Alpha Fetoprotein <1.8 0.0-8.4 ng/mL Hepatitis B Surface Antibody Negative Negative Hepatitis B Core Total Antibody Positive H Negative Hepatitis B Core IgM Antibody Negative Negative Hepatitis C Antibody Positive *A Negative HIV (1&2) Antibody Negative Negative Hepatitis B Surface Antigen Positive H Negative Test 11/29/24 05:41 11/28/24 17:54 11/28/24 14:28 Range/Units Magnesium Level 2.3 1.6-2.6 mg/dL Parathyroid Hormone (Intact) 215.8 H 18.4-80.1 pg/mL Troponin I High Sensitivity 77 *H </=54 ng/L B-Type Natriuretic Peptide 770.73 0-100 pg/mL Microbiology Date/Time Source Procedure Growth Status 11/29/24 17:31 Blood Blood Culture - Preliminary NO GROWTH AFTER 24 HOURS OF INCUBATION. Resulted Imaging: CT angiography IMPRESSION: 1. No central or lobar pulmonary embolism. Evaluation for segmental or subsegmental pulmonary emboli is limited due to respiratory motion artifact. 2. Scattered areas of ground-glass attenuation are seen in the lungs, may be partly due to motion artifact. Infectious or inflammatory etiology not excluded. No focal consolidation. 3. Cardiomegaly. 4. Low-density structure of the pancreatic tail measuring up to 3.5 cm, possible cyst or cystic neoplasm. Nonemergent pancreatic protocol MRI recommended to further characterize. 5. Additional findings as detailed above. Assessment: Chest pain Pancreatic cyst History of GI bleed ESRD on dialysis Plan: Discussed with Dr. Moreno AFP pending Lipase Outpatient follow-up recommended, for possible MRI as needed to evaluate pancreatic cyst Thank you for this consult Date of Service: Dec 01, 2024 Billing Provider: URSZULA BRASHER Common Visit Codes: CONSULT ONLY Consultation Codes: [id number] CONSULT <45MIN URSZULA BRASHER Dec 01, 2024 14:04
[2024-12-01] MEDS: DONEPEZIL HYDROCHLORIDE 5 MG TAB PO SCH (17:07)
[2024-12-01] MEDS: RIVAROXABAN 10 MG TAB PO SCH (17:33)
--- NOTE | 2024-12-01 18:15 | DVHNC2 ---
Procedure - [employer] (micra) pacemaker interrogation: Battery voltage: 3.02 volts Remaining longevity: More than 8 years V pace: 0.2% Mode: VDD 55/105 RV impedance: 790 Ohms Capture threshold: 0.38 volts at 0.2 milliseconds Measured RV: 16 mV Program sensitivity: 2.0 mV Normal functioning pacemaker NICOLE KERNS MD Dec 01, 2024 18:14
[2024-12-01] MEDS: EPOETIN ALFA-EPBX 4,000 UNIT/ML VIAL SC ONE (21:58)
[2024-12-01] MEDS ORDERED: DONEPEZIL HYDROCHLORIDE 5 MG TAB PO SCH (22:00)
[2024-12-02] VITALS: BP 103/62; PULSE 57
[2024-12-02 01:00] VITALS: BP 107/53; PULSE 57; RESP 19; TEMP 97.5; O2SAT 97
[2024-12-02 05:00] VITALS: BP 118/66; PULSE 60; RESP 18; TEMP 98.2; O2SAT 99
--- NOTE | 2024-12-02 08:20 | DVHPN2 ---
Progress Note Date Seen: Dec 02, 2024 Medical Necessity Reason Pt with a Central, PICC or Fol: No Subjective Patient reports: No new complaints Review of Systems: Deferred Objective vital signs Vital Sign Date Time Temp Pulse Resp B/P (MAP) Pulse Ox O2 Delivery O2 Flow Rate FiO2 12/02/24 05:00 98.2 60 18 118/66 (83) 99 98.2 12/01/24 20:00 Nasal Cannula* 4 36 Total Intake and Output 12/01/24 12/01/24 12/02/24 15:00 23:00 07:00 Intake Total 350 ml 100 ml Balance 350 ml 100 ml medications Current Medications Medications Dose Ordered Sig/Nereyda Route Start Time Stop Time Status Last Admin Dose Admin Atorvastatin Calcium 20 mg HS PO 11/28/24 22:00 12/01/24 21:58 20 MG Famotidine 10 mg Q12H IV 11/28/24 22:00 12/01/24 21:58 10 MG Clonidine HCl 0.1 mg Q4HP PRN PO 11/28/24 17:00 12/01/24 17:06 0.1 MG Multivit/Ca Carb/ B Cmplx/FA/Prenat 1 tab DAILY PO 11/29/24 10:00 12/01/24 09:36 1 TAB Sevelamer HCl 800 mg TIDWM PO 11/28/24 18:00 12/01/24 17:06 800 MG Diagnostic Test (Pha) 1 strip ACHS 11/28/24 17:00 12/02/24 07:01 1 STRIP Insulin Human Regular ACHS SC 11/28/24 17:00 12/01/24 22:39 3 UNITS Dextrose 50 ml UD PRN IV 11/28/24 17:00 Sodium Chloride 10 ml Q8HR IV 11/28/24 22:00 12/02/24 05:24 10 ML Acetaminophen/ Hydrocodone Bitart 1 tab Q4HP PRN PO 11/28/24 17:00 11/30/24 20:50 1 TAB Ondansetron HCl 4 mg Q4HP PRN IV 11/28/24 17:00 Docusate Sodium 100 mg BIDPRN PRN PO 11/28/24 17:00 11/30/24 20:50 100 MG Acetaminophen 650 mg Q6HP PRN PO 11/28/24 17:00 Carvedilol 6.25 mg Q12HR PO 11/28/24 22:00 12/01/24 09:36 6.25 MG Duloxetine HCl 30 mg DAILY PO 11/29/24 10:00 12/01/24 09:37 30 MG Nitroglycerin 0.4 mg Q5MINP PRN SL 11/28/24 18:15 Morphine Sulfate 2 mg Q30M PRN IV 11/28/24 18:15 12/01/24 08:43 2 MG Morphine Sulfate 2 mg Q4HPRN PRN IV 11/28/24 18:30 11/30/24 17:25 2 MG Ceftriaxone Sodium 50 ml @ 100 mls/hr DAILY@09 IV 11/30/24 09:00 12/01/24 09:36 100 MLS/HR Doxycycline Hyclate 100 ml @ 50 mls/hr Q12H IV 11/29/24 16:30 12/02/24 05:20 50 MLS/HR Donepezil HCl 5 mg HS PO 12/01/24 22:00 Cancel Donepezil HCl 5 mg 1800 PO 12/01/24 18:00 12/01/24 17:07 5 MG Patient Own Medication 10 mg DAILY PO 12/01/24 10:00 UNV Rivaroxaban 10 mg DAILY PO 12/01/24 18:00 12/01/24 17:33 10 MG Examination: GENERAL:Normal, HEENT:Normal, NECK:Normal, LUNGS:Abnormal, CVS:Normal, ABDOMEN:Normal, MSK:Normal, SKIN:Normal, NEURO:Normal, :Normal laboratory and microbiology Laboratory Tests 12/01/24 11:44 Test 12/01/24 11:44 Range/Units Serum Glucose 126 H 74-106 mg/dL Microbiology Date/Time Source Procedure Growth Status 11/29/24 17:31 Blood Blood Culture - Preliminary NO GROWTH AFTER 48 HOURS OF INCUBATION. 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
--- NOTE | 2024-12-02 08:22 | DVHPN2 ---
Reviewed: Care Plan, H&P, Labs, Medications, Previous Orders Changes from previous H/P or p: No Changes Eyes: No Pain, No Vision change, No Conjunctivae inflammation, No Eyelid inflammation, No Other, No Redness ENT: No Ear pain, No Ear discharge, No Nose pain, No Nose discharge, No Nose congestion, No Mouth pain, No Mouth swelling, No Throat pain, No Throat swelling, No Other Cardiovascular: Chest Pain; No Palpitations, No Orthopnea, No Paroxysmal Noc. Dyspnea, No Edema, No Lt Headedness, No Other Respiratory: No Cough, No Dry; Shortness of breath; No SOB with excertion, No Wheezing, No Hemoptysis, No Pleuritic Pain, No Sputum, No Other Gastrointestinal: No Nausea, No Vomiting, No Abdominal Pain, No Diarrhea, No Constipation, No Melena, No Hematochezia, No Other Genitourinary: No Dysuria, No Frequency, No Incontinence, No Hematuria, No Retention, No Other Musculoskeletal: No other, No neck pain, No shoulder pain, No arm pain, No back pain, No hand pain, No leg pain, No foot pain Skin: No Rash, No Lesions, No Jaundice, No Bruising, No Other Objective Vitals Vital Signs Date Time Temp Pulse Resp B/P (MAP) Pulse Ox O2 Delivery O2 Flow Rate FiO2 12/02/24 05:00 98.2 60 18 118/66 (83) 99 98.2 12/01/24 20:00 Nasal Cannula* 4 36 Intake/Output Intake and Output 12/02/24 07:00 Intake Total 450 ml Balance 450 ml Intake Oral 350 ml IV Total 100 ml Medications Current Medications Medications Dose Ordered Sig/Nereyda Route Start Time Stop Time Status Last Admin Dose Admin Atorvastatin Calcium 20 mg HS PO 11/28/24 22:00 12/01/24 21:58 20 MG Famotidine 10 mg Q12H IV 11/28/24 22:00 12/01/24 21:58 10 MG Clonidine HCl 0.1 mg Q4HP PRN PO 11/28/24 17:00 12/01/24 17:06 0.1 MG Multivit/Ca Carb/ B Cmplx/FA/Prenat 1 tab DAILY PO 11/29/24 10:00 12/01/24 09:36 1 TAB Sevelamer HCl 800 mg TIDWM PO 11/28/24 18:00 12/01/24 17:06 800 MG Diagnostic Test (Pha) 1 strip ACHS 11/28/24 17:00 12/02/24 07:01 1 STRIP Insulin Human Regular ACHS SC 11/28/24 17:00 12/01/24 22:39 3 UNITS Dextrose 50 ml UD PRN IV 11/28/24 17:00 Sodium Chloride 10 ml Q8HR IV 11/28/24 22:00 12/02/24 05:24 10 ML Acetaminophen/ Hydrocodone Bitart 1 tab Q4HP PRN PO 11/28/24 17:00 11/30/24 20:50 1 TAB Ondansetron HCl 4 mg Q4HP PRN IV 11/28/24 17:00 Docusate Sodium 100 mg BIDPRN PRN PO 11/28/24 17:00 11/30/24 20:50 100 MG Acetaminophen 650 mg Q6HP PRN PO 11/28/24 17:00 Carvedilol 6.25 mg Q12HR PO 11/28/24 22:00 12/01/24 09:36 6.25 MG Duloxetine HCl 30 mg DAILY PO 11/29/24 10:00 12/01/24 09:37 30 MG Nitroglycerin 0.4 mg Q5MINP PRN SL 11/28/24 18:15 Morphine Sulfate 2 mg Q30M PRN IV 11/28/24 18:15 12/01/24 08:43 2 MG Morphine Sulfate 2 mg Q4HPRN PRN IV 11/28/24 18:30 11/30/24 17:25 2 MG Ceftriaxone Sodium 50 ml @ 100 mls/hr DAILY@09 IV 11/30/24 09:00 12/01/24 09:36 100 MLS/HR Doxycycline Hyclate 100 ml @ 50 mls/hr Q12H IV 11/29/24 16:30 12/02/24 05:20 50 MLS/HR Donepezil HCl 5 mg HS PO 12/01/24 22:00 Cancel Donepezil HCl 5 mg 1800 PO 12/01/24 18:00 12/01/24 17:07 5 MG Patient Own Medication 10 mg DAILY PO 12/01/24 10:00 UNV Rivaroxaban 10 mg DAILY PO 12/01/24 18:00 12/01/24 17:33 10 MG Laboratory Results Laboratory Tests 12/01/24 11:44 Chemistry Test 12/01/24 11:44 Albumin 3.8 g/dL (3.2-4.8) Calcium Level 9.5 mg/dL (8.7-10.4) Phosphorus Level 2.9 mg/dL (2.4-5.1) Total Protein 6.6 g/dL (5.7-8.2) Lipid panel Test 12/01/24 11:44 Lipase 29 U/L (12-53) LFT Test 12/01/24 11:44 Alanine Aminotransferase (ALT) < 9 U/L (7-40) Alkaline Phosphatase 66 U/L (46-116) Aspartate Amino Transferase (AST) 13 U/L (13-40) Total Bilirubin 0.2 mg/dL (0.2-1.0) Microbiology Microbiology Date/Time Source Procedure Growth Status 11/29/24 17:31 Blood Blood Culture - Preliminary NO GROWTH AFTER 48 HOURS OF INCUBATION. Resulted Labs and/or images reviewed: Labs reviewed by me, Image(s) reviewed by me Assessment/Plan Assessment/Plan Acute chest pain rule out coronary artery disease troponin slightly elevated, cardiology consult by Dr. Mondragon appreciated ESRD on hemodialysis: Consult for Dr. Felipe Potts History of coronary artery disease Acute CHF exacerbation Acute COPD exacerbation Dementia: Aricept 5 mg p.o.daily Diabetes type 2 Hypertension History of pacemaker pacemaker interrogation done by Dr. Mondragon working well Use of home oxygen 2 L per mt Chronic back pain on epidural injections History of cardiac arrest status post intubated ICU stay three weeks August 2023 History of cardiac stents by Dr. Mondragon July 2023 Massive GI bleed February 2024 secondary to Eliquis Per ex- at the bedside took him off of plavix, currently only on baby aspirin DVT bilateral lower extremity ruled out History of DVT right IJ . Cardiology Dr. Mondragon spoke with the family and placed on Xarelto 10 mg p.o.daily Ex- and caregiver Maribell [phone] at bedside HANS Joaquin at bedside Time taken 50 minutes Advanced care planning time [address] Felipe Potts PCP Dr Yessica Adame Patient is full code Plan discussed with: Patient My Orders Orders - NARESH BRASHER MD Procedure Category Date Status Time * Gi Dvh Slide Maker CONS 12/01/24 Transmitted 08:35 Date of Service: Dec 02, 2024 Billing Provider: NARESH BRASHER MD Common Visit Codes: [id number] INP/OBS CARE(HIGH) NARESH BRASHER MD Dec 02, 2024 08:22
[2024-12-02] MEDS ORDERED: RIVA10TA PO (08:26)
[2024-12-02] MEDS ORDERED: HYDR-4798 PO (08:26)
--- NOTE | 2024-12-02 08:27 | DVHPN2 ---
Progress Note - Dictate Date Seen: Dec 02, 2024 Medical Necessity Reason Pt with a Central, PICC or Fol: No vital signs Vital Sign Date Time Temp Pulse Resp B/P (MAP) Pulse Ox O2 Delivery O2 Flow Rate FiO2 12/02/24 05:00 98.2 60 18 118/66 (83) 99 98.2 12/01/24 20:00 Nasal Cannula* 4 36 Total Intake and Output 12/01/24 12/01/24 12/02/24 15:00 23:00 07:00 Intake Total 350 ml 100 ml Balance 350 ml 100 ml medications Current Medications Medications Dose Ordered Sig/Nereyda Route Start Time Stop Time Status Last Admin Dose Admin Atorvastatin Calcium 20 mg HS PO 11/28/24 22:00 12/01/24 21:58 20 MG Famotidine 10 mg Q12H IV 11/28/24 22:00 12/01/24 21:58 10 MG Clonidine HCl 0.1 mg Q4HP PRN PO 11/28/24 17:00 12/01/24 17:06 0.1 MG Multivit/Ca Carb/ B Cmplx/FA/Prenat 1 tab DAILY PO 11/29/24 10:00 12/01/24 09:36 1 TAB Sevelamer HCl 800 mg TIDWM PO 11/28/24 18:00 12/01/24 17:06 800 MG Diagnostic Test (Pha) 1 strip ACHS 11/28/24 17:00 12/02/24 07:01 1 STRIP Insulin Human Regular ACHS SC 11/28/24 17:00 12/01/24 22:39 3 UNITS Dextrose 50 ml UD PRN IV 11/28/24 17:00 Sodium Chloride 10 ml Q8HR IV 11/28/24 22:00 12/02/24 05:24 10 ML Acetaminophen/ Hydrocodone Bitart 1 tab Q4HP PRN PO 11/28/24 17:00 11/30/24 20:50 1 TAB Ondansetron HCl 4 mg Q4HP PRN IV 11/28/24 17:00 Docusate Sodium 100 mg BIDPRN PRN PO 11/28/24 17:00 11/30/24 20:50 100 MG Acetaminophen 650 mg Q6HP PRN PO 11/28/24 17:00 Carvedilol 6.25 mg Q12HR PO 11/28/24 22:00 12/01/24 09:36 6.25 MG Duloxetine HCl 30 mg DAILY PO 11/29/24 10:00 12/01/24 09:37 30 MG Nitroglycerin 0.4 mg Q5MINP PRN SL 11/28/24 18:15 Morphine Sulfate 2 mg Q30M PRN IV 11/28/24 18:15 12/01/24 08:43 2 MG Morphine Sulfate 2 mg Q4HPRN PRN IV 11/28/24 18:30 11/30/24 17:25 2 MG Ceftriaxone Sodium 50 ml @ 100 mls/hr DAILY@09 IV 11/30/24 09:00 12/01/24 09:36 100 MLS/HR Doxycycline Hyclate 100 ml @ 50 mls/hr Q12H IV 11/29/24 16:30 12/02/24 05:20 50 MLS/HR Donepezil HCl 5 mg HS PO 12/01/24 22:00 Cancel Donepezil HCl 5 mg 1800 PO 12/01/24 18:00 12/01/24 17:07 5 MG Patient Own Medication 10 mg DAILY PO 12/01/24 10:00 UNV Rivaroxaban 10 mg DAILY PO 12/01/24 18:00 12/01/24 17:33 10 MG laboratory and microbiology Laboratory Tests 12/01/24 11:44 Test 12/01/24 11:44 Range/Units Serum Glucose 126 H 74-106 mg/dL Assessment/Plan Patient is a 79-year-old gentleman who presented to the hospital with episode of shortness of breath and chest tightness. Since arrival, troponin was found to have stayed flat and minimally elevated. Reportedly the patient's oxygen saturation (found by EMS) was low and later responded to oxygen supplementation. Cardiology is involved for cardiac aspects of care. Patient is known to our practice from before and outside. Does have old history of coronary artery disease and has had the last stent in July 2023. He is supposed to stay on aspirin as outpatient. Does have history of subclavian/jugular DVT for which was on Eliquis for awhile (later stopped secondary to repeated GI bleedings). Does have history of chronically elevated troponin. Does have history of end- stage renal disease and is on hemodialysis. Frail gentleman. Not in acute distress. No carotid bruit, no goiter. Lungs: Scattered rhonchi in the lungs, cardiac: Regular, systolic murmur in the apex is heard. Abdomen is soft and distended. Bowel sound is positive. There is no gross mass. Extremities reveal 1+ edema bilaterally. Dorsalis pedis is 2+ bilateral. Past medical history includes end-stage renal disease on hemodialysis, old history of CVA (2019), poor functional capacity, coronary artery disease and status post PCI (last stent in July 2023, ostial LAD), COPD, obstructive sleep apnea, diabetes mellitus, hypertension, anemia (history of repeated transfusions), D-CHF, SVT, pulmonary hypertension (considered type 2), history of pancytopenia (resolved later), history of DVT in upper extremity, dementia, peripheral artery disease, right external iliac artery aneurysm, history of CDT colitis, repeated/significant GI bleedings and ex-smoker. Past medical history also includes DVT in the right upper extremity, history of septic shock, history of pneumonia, sick sinus syndrome and status post pacemaker (Micra/Medtronic) implantation. Echocardiogram of September 11, 2024 (performed in the office) reported ejection fraction of 55-60%, pseudo-normal left ventricular diastolic dysfunction, mild biatrial enlargement, mild mitral regurgitation, tricuspid regurgitation, atrial insufficiency, mild mitral annular calcification and right ventricular systolic pressure of less than 35 mm Hg Echocardiogram of June 05, 2024 reported mild concentric left ventricular hypertrophy, ejection fraction of 45-50%, mild biatrial enlargement, mild aortic insufficiency/tricuspid regurgitation/trace mitral regurgitation. Right ventricular systolic pressure of 48 mm Hg. Echocardiogram of January 2024 had revealed: Ejection fraction of 40-45%, anterior/anteroseptal hypokinesia, biatrial enlargement, right ventricular systolic pressure 45 mm Hg. Echocardiogram October 28, 2023 had revealed mild concentric left ventricular hypertrophy, LVEF of 52% with mild diffuse hypokinesis, dilated RV/LA/RA, dbom-yb-spwamdyn aortic insufficiency, mild MR, moderate TR and right ventricular systolic pressure of 60 mm Hg Echocardiogram of November 08, 2023 (performed in [facility]) had reported: LVEF of 50%, grrgefvt-yo-egnmma TR, mild aortic insufficiency and right ventricular systolic pressure of 49 mm Hg Echocardiogram of September 15, 2023 (performed and [facility]) revealed ejection fraction of 45-50% Echocardiogram of March 22, 2023 (performed in the office) revealed ejection fraction of 65-70%, mild concentric left ventricular hypertrophy, moderate biatrial enlargement, qttb-yt-wfbcuqgl MR/TR, mild AI/PI and right ventricular systolic pressure of 66 mm Hg. Left heart catheterization on August 04, 2023 revealed: 1 vessel coronary artery disease and status post PCI (drug-eluting stent deployment of ostial LAD, LVEF of 60% with increased LVEDP, patent stent in mid LAD, type 2 pulmonary hypertension. Was seen by GI for pancreatic findings WBC: 8.8 - 11.7 - 4.4 Hemoglobin: 9.3 - 9.3 - 7.9 Platelet: 144 - 131 - 118 Sodium: 134 - 133 - 127 Potassium: 5.5 - 6.3 - 5.5 Creatinine: 5.80 - 6.67 - 7.20 BNP: 770.73 Troponin (high sensitive): 86 - 79 - 77 D-Dimer: 1.09 Chest x-ray reviewed: IMPRESSION: Pulmonary vascular congestion. Superimposed atypical infection can not be excluded. Liver ultrasound revealed: Impression: Echogenic liver which can be seen with hepatic steatosis, cirrhosis. Echogenic right kidney which can be seen with medical renal disease. Numerous right renal cysts measuring up to 3.2 cm Venous duplex of lower ext revealed: Impression: 1. No right or left femoropopliteal venous thrombosis. Venous duplex of upper ext revealed: Impression: 1. Partial compressibility of the right internal jugular vein. 2. Left basilic vein shows no flow and is noncompressible. 3. If clinical concern/symptoms persist or worsen, short- interval follow-up study is suggested. CTA of lungs: Pulmonary arteries: No central or lobar pulmonary embolism. Evaluation for segmental or subsegmental pulmonary emboli is limited due to respiratory motion artifact. Aorta: Moderate atherosclerotic calcification. No thoracic aortic aneurysm. Cardiac: Zdze-ir-tojzuctc cardiomegaly. Dense coronary artery calcification and/or stents. Mediastinum/asif: Mildly prominent mediastinal lymph nodes in the right lower paratracheal, AP window, and prevascular stations, measuring up to 1.2 cm in short axis dimension of the right lower paratracheal station, minimally changed compared to the prior exam, likely reactive lymph nodes. Lungs: Respiratory motion artifact limits evaluation. Scattered areas of ground-glass attenuation are seen, may be infectious or inflammatory in nature. There is dependent atelectasis in the lower lobes. Moderate emphysematous changes. No focal consolidation. No pneumothorax or pleural effusion visualized. Chest wall: No mass or other abnormality. Upper abdomen: Multiple bilateral renal cysts partially visualized. Focal area of low-density of the pancreatic tail measuring up to 3.5 cm, possible cyst or cystic neoplasm. Bones: No acute fracture or suspicious intraosseous lesions. IMPRESSION: 1. No central or lobar pulmonary embolism. Evaluation for segmental or subsegmental pulmonary emboli is limited due to respiratory motion artifact. 2. Scattered areas of ground-glass attenuation are seen in the lungs, may be partly due to motion artifact. Infectious or inflammatory etiology not excluded. No focal consolidation. 3. Cardiomegaly. 4. Low-density structure of the pancreatic tail measuring up to 3.5 cm, possible cyst or cystic neoplasm. Nonemergent pancreatic protocol MRI recommended to further characterize. 5. Additional findings as detailed above. EKG reveals sinus rhythm, right bundle branch block Tele reveals sinus rhythm with paced ventricular Echocardiogram revealed: Left ventricle: Mild concentric left ventricular hypertrophy was seen. LVEF was around 60%. There was no gross wall motion abnormality. Pseudo normal LV diastolic dysfunction was observed. Right ventricle: Right ventricle was dilated with preserved systolic function. Both atria were dilated. Aortic valve: Aortic sclerosis with no stenosis was observed. Mild aortic insufficiency was seen. There was mild mitral regurgitation. There was fzkc-na-pglsqjww tricuspid regurgitation. Pulmonary valve was not well visualized. Right ventricular systolic pressure was assessed at 55 mm Hg. There was no pericardial effusion. Medtronic (micra) pacemaker interrogation: Battery voltage: 3.02 volts; Remaining longevity: More than 8 years; V pace: 0.2%; Mode: VDD 55/105; RV impedance: 790 Ohms; Capture threshold: 0.38 volts at 0.2 milliseconds; Measured RV: 16 mV; Program sensitivity: 2.0 mV; Normal functioning pacemaker Patient is a 79-year-old gentleman who presented with acute shortness of breath. High sensitive troponin has remained mildly elevated and flat. Does have old history of mildly elevated troponin. Presentation is less likely acute coronary syndrome. Echocardiogram has been nonrevealing. Does have history of coronary artery disease and last stent was in July 2023. Has been kept on aspirin as outpatient. Also has history of sick sinus syndrome for which has had pacemaker (micra/Medtronic). It is of note that the patient's presentation was shortness of breath and the patient was reportedly having low oxygen saturation. Does have old history of DVT in subclavian/neck. He has history also includes pulmonary hypertension which is considered type 2 (does have history of diastolic heart failure). Ejection fraction was mildly reduced previously and later on improved. D-Dimer is elevated. Pulmonary Emboli was ruled out. Found to have possible pancreatic tail cyst Vs neoplasm. Acute respiratory failure Acute on chronic heart failure (possibly diastolic) Coronary artery disease, status post PCI, history Abnormal troponin, considered demand physiology at this point Pulmonary hypertension, type 2 End-stage renal disease on hemodialysis History of DVT, history of Abnormal D-Dimer Possible pancreatic tail cyst Vs neoplasm Cardiac suggestion for management: Manage in tele Follow-up electrolytes and kidney function tests and correct abnormalities. Pancreatic protocol MRI GI follow up Consider A/C: Family refused Eliquis and agreed with low dose Xarelto (10 mg). Hemodialysis as per Nephrology Cardiac purdy, stable Further evaluation and management depends on the above and clinical course A total of 55 minutes was spent reviewing the patient record, examining the patient, making a diagnostic and therapeutic plan, discussing this plan with medical personnel, following up on diagnostic studies and following the patient for clinical stability excluding any and all procedures. At least 50% of this time was spent in direct, kohb-uw-fheo contact. Thank you for allowing me to participate in this patient's care. Further recommendations will depend on patient's clinical course. Please do not hesitate to contact me if you have any questions or concerns. This medical document was created using electronic medical record system with [employer] computerized dictation system. Although this document has been carefully reviewed, there may still be some phonetic and typographical errors. These areas are purely typographical due to the imperfection of the software programs, and do not reflect any compromise in the patient's medical care. Plan discussed with: Other (nurse) NICOLE KRENS MD Dec 02, 2024 08:27
--- NOTE | 2024-12-02 08:31 | DVHDS2 ---
Discharge Summary Date of Admission Nov 28, 2024 at 18:13 Date of Discharge: Dec 02, 2024 Admitting Diagnosis Chest pain Wounds: None Labs/Diagnostic Data: Laboratory Results Test 12/02/24 05:22 12/01/24 11:44 11/29/24 17:24 11/29/24 11:24 POC Glucose 84 mg/dl (70-106) White Blood Count 4.4 10^3/uL (4.4-10.8) Red Blood Count 2.48 10^6/uL (4.5-5.90) Hemoglobin 7.9 g/dL (13.5-17.5) Hematocrit 23.1 % (41.0-53.0) Mean Corpuscular Volume 93.2 fL (80.0-100.0) Mean Corpuscular Hemoglobin 31.9 pg (28.0-32.0) Mean Corpuscular Hemoglobin Concent 34.2 g/dL (32.0-36.0) Red Cell Distribution Width 18.6 % (11.8-14.3) Platelet Count 118 10^3/uL (140-450) Mean Platelet Volume 7.6 fL (6.9-10.8) Neutrophils (%) (Auto) 61.8 % (37.0-80.0) Lymphocytes (%) (Auto) 16.6 % (10.0-50.0) Monocytes (%) (Auto) 15.5 % (0.0-12.0) Eosinophils (%) (Auto) 5.6 % (0.0-7.0) Basophils (%) (Auto) 0.5 % (0.0-2.0) Neutrophils # (Auto) 2.7 10 ^3/uL (1.6-8.6) Lymphocytes # (Auto) 0.7 10 ^3/uL (0.4-5.4) Monocytes # (Auto) 0.7 10 ^3/uL (0-1.3) Eosinophils # (Auto) 0.2 10 ^3/uL (0-0.8) Basophils # (Auto) 0 10 ^3/uL (0-0.2) Nucleated Red Blood Cells 0.0 % Sodium Level 127 mmol/L (136-145) Potassium Level 5.5 mmol/L (3.5-5.1) Chloride Level 91 mmol/L (98-107) Carbon Dioxide Level 26 mmol/L (20-31) Anion Gap 10 (5-15) Blood Urea Nitrogen 63 mg/dL (9-23) Creatinine 7.20 mg/dL (0.700-1.30) Glomerular Filtration Rate Calc 7 mL/min (>90) BUN/Creatinine Ratio 8.8 (10.0-20.0) Serum Glucose 126 mg/dL (74-106) Calcium Level 9.5 mg/dL (8.7-10.4) Phosphorus Level 2.9 mg/dL (2.4-5.1) Total Bilirubin 0.2 mg/dL (0.2-1.0) Aspartate Amino Transferase (AST) 13 U/L (13-40) Alanine Aminotransferase (ALT) < 9 U/L (7-40) Alkaline Phosphatase 66 U/L (46-116) Total Protein 6.6 g/dL (5.7-8.2) Albumin 3.8 g/dL (3.2-4.8) Lipase 29 U/L (12-53) D-Dimer, Quantitative 1.09 mg/L FEU (0.0-0.49) Tumor Marker Alpha Fetoprotein <1.8 ng/mL (0.0-8.4) Hepatitis B Surface Antibody Negative (Negative) Hepatitis B Core Total Antibody Positive (Negative) Hepatitis B Core IgM Antibody Negative (Negative) Hepatitis C Antibody Positive (Negative) HIV (1&2) Antibody Negative (Negative) Hepatitis B Surface Antigen Positive (Negative) Test 11/29/24 05:41 11/28/24 17:54 11/28/24 14:28 Magnesium Level 2.3 mg/dL (1.6-2.6) Parathyroid Hormone (Intact) 215.8 pg/mL (18.4-80.1) Troponin I High Sensitivity 77 ng/L (</=54) B-Type Natriuretic Peptide 770.73 pg/mL (0-100) Other Laboratory Tests 12/01/24 11:44 Brief Hx & Hospital Course: 79-year-old male with multiple medical problems including coronary artery disease CHF COPD dementia diabetes hypertension pacemaker use of home oxygen history of cardiac arrest status post intubated in ICU stay three weeks in August 2023 history of cardiac stents by Dr. Mondragon July 2023 massive GI bleed February 2024 secondary to Eliquis admitted for chest pain. Seen by Cardiology Dr. Mondragon. Troponin only slightly elevated pacemaker interrogated by Dr. Mondragon and working well. Patient has had a chronic right IJ DVT placed on Xarelto 10 mg p[address]o. daily by Dr. Mondragon the patient and his are aware of the new blood thinner medication Xarelto. 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 Felipe Potts. Ex- is a caregiver and she does not want the patient to go to shelter facility or place on hospice requesting to be discharged home. Discharged home he will continue all his home medications. Prescription for Xarelto and Percocet transmitted to the pharmacy. Consults/Reason for consult Nephrology Cardiology Operations or Procedures Pacemaker interrogation Hemodialysis Condition at Discharge: Fair Final Diagnosis/Problems List Acute chest pain rule out coronary artery disease troponin slightly elevated, cardiology consult by Dr. Mondragon appreciated ESRD on hemodialysis: Consult for Dr. Felipe Potts History of coronary artery disease Acute CHF exacerbation Acute COPD exacerbation Dementia: Aricept 5 mg p.o.daily Diabetes type 2 Hypertension History of pacemaker pacemaker interrogation done by Dr. Mondragon working well Use of home oxygen 2 L per mt Chronic back pain on epidural injections History of cardiac arrest status post intubated ICU stay three weeks August 2023 History of cardiac stents by Dr. Mondragon July 2023 Massive GI bleed February 2024 secondary to Eliquis Per ex- at the bedside took him off of plavix, currently only on baby aspirin DVT bilateral lower extremity ruled out History of DVT right IJ . Cardiology Dr. Mondragon spoke with the family and placed on Xarelto 10 mg p.o.daily Discharge Disposition: Home Discharge Instruct/Medications Diet: Renal Activity: Light activity Follow Up/Referral: Follow up with the primary Dr Follow up with the roller repairer Dr. Mondragon in two weeks Follow up with your engine testing supervisor Dr. Felipe Potts for regular dialysis Continue all your previous home medications Use new medications as prescribed Medications: Sent to the pharmacy Scheduled Aspirin (Aspirin Low Dose), 1 TAB PO DAILY, (Reported) Atorvastatin Calcium (Atorvastatin Calcium), 80 MG PO QPM, (Reported) Bupropion HCl (Bupropion Hydrochloride), 150 MG PO DAILY, (Reported) Calcium Carbonate (Calcium), 600 MG PO BID, (Reported) Cholecalciferol (Vitamin D3), 5,000 UNIT OR QWEEKLY, (Reported) Clopidogrel Bisulfate (Plavix), 75 MG PO DAILY, (Reported) Donepezil Hydrochloride (Donepezil Hcl), 1 TAB PO DAILY, (Reported) Duloxetine HCl (Duloxetine HCl), 1 CAP PO DAILY, (Reported) Hydralazine Hcl (Hydralazine Hcl), 1 TAB PO BID, (Reported) Hydrocodone-Acetaminophen (Hydrocodone/Acetaminophen 10-325 mg), 1 TAB PO BID, (Reported) Insulin Isophane & Reg (Human) (Humulin 70/30 (70-30) 100 Unit/ml), 10 UNITS SC BID Ipratropium Valmy (Ipratropium Valmy), NEB BID, (Reported) Lactulose (Lactulose), 10 GM PO BID, (Reported) Minoxidil (Loniten), 1 TAB PO BID, (Reported) Nifedipine (Nifedipine Er), 1 TAB PO BID, (Reported) Pantoprazole Sodium Sesquihydr (Protonix), 40 MG PO DAILY, (Reported) Pantoprazole Sodium Sesquihydr (Protonix), 40 MG PO DAILY Revefenacin (Yupelri), 8 MCG IN DAILY, (Reported) Rivaroxaban (Xarelto), 1 TAB PO DAILY Tizanidine Hydrochloride (Zanaflex), 8 MG PO HS, (Reported) Trazodone HCl (Trazodone Hydrochloride), 50 MG PO HS, (Reported) Vancomycin HCl (Vancomycin HCl), 125 MG PO QID Scheduled PRN Clonidine Hydrochloride (Clonidine Hcl), 0.1 MG PO for SBP>160, (Reported) Hydrocodone-Acetaminophen (Hydrocodone Bitartrate/AC 10-325 mg), 1 TAB PO BID PRN Meclizine HCl (Meclizine 25), 25 MG PO for DIZZINESS, (Reported) Nitroglycerin (Nitrostat), 1 TAB SL Q5MIN PRN for CHEST PAIN, (Reported) Miscellaneous Medications Insulin Isophane & Reg (Human) (Humulin 70/30 (70-30) 100 Unit/ml), (Reported) Patiromer Sorbitex Calcium (Veltassa), 1 PKT PO, (Reported) Thiamine Hcl (Vitamin B-1), 50 MG PO, (Reported) 35 (Time taken for discharge summary 35 minutes) Discharge Statement: "Patient was advised to return to the ER or call 911 if any headaches, dizziness, shortness of breath, chest pain, abdominal pain, bleeding, fevers, or worsening of medical condition. Patient was counseled about treatment plan, medications, possible side effects, patientverbalized understanding. All questions were answered to the best of my ability. This discharge took greater then 30 minutes in planning, reviewing documentation, counseling the patient, and discussing with other team members." ASSESSMENT ASSESSMENT Hospital Course Marginal improvement Assessment Acute chest pain rule out coronary artery disease troponin slightly elevated, cardiology consult by Dr. Mnodragon appreciated ESRD on hemodialysis: Consult for Dr. Felipe Potts History of coronary artery disease Acute CHF exacerbation Acute COPD exacerbation Dementia: Aricept 5 mg p.o.daily Diabetes type 2 Hypertension History of pacemaker pacemaker interrogation done by Dr. Mondragon working well Use of home oxygen 2 L per mt Chronic back pain on epidural injections History of cardiac arrest status post intubated ICU stay three weeks August 2023 History of cardiac stents by Dr. Mondragon July 2023 Massive GI bleed February 2024 secondary to Eliquis Per ex- at the bedside took him off of plavix, currently only on baby aspirin DVT bilateral lower extremity ruled out History of DVT right IJ . Cardiology Dr. Mondragon spoke with the family and placed on Xarelto 10 mg p.o.daily Date of Service: Dec 02, 2024 Billing Provider: NARESH BRASHER MD Common Visit Codes: 78245-LOZ/OBS DISCH DAY >30min NARESH BRASHER MD Dec 02, 2024 08:31
[2024-12-02 09:15] VITALS: BP 113/67; PULSE 78; RESP 18; TEMP 98.4; O2SAT 100
[2024-12-02 09:52] VITALS: BP 96/49; PULSE 57; TEMP 36.9
--- NOTE | 2024-12-02 21:11 | DVHPN2 ---
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 19 nine is pending vital signs Vital Sign Date Time Temp Pulse Resp B/P (MAP) Pulse Ox O2 Delivery O2 Flow Rate FiO2 12/02/24 09:52 36.9 57 12/02/24 09:15 18 113/67 (82) 100 12/02/24 08:00 Nasal Cannula* 4 36 Total Intake and Output 12/01/24 12/01/24 12/02/24 15:00 23:00 07:00 Intake Total 350 ml 100 ml Balance 350 ml 100 ml medications Current Medications Medications Dose Ordered Sig/Nereyda Route Start Time Stop Time Status Last Admin Dose Admin Donepezil HCl 5 mg HS PO 12/01/24 22:00 Cancel Patient Own Medication 10 mg DAILY PO 12/01/24 10:00 UNV objective General: NAD, AAOX3 Chest: lung hernandez clear to auscultation Heart: RRR, no murmur Abdomen: non-distended, no tenderness to palpation, +BS laboratory and microbiology Laboratory Tests 12/01/24 11:44 Test 12/01/24 11:44 Range/Units Serum Glucose 126 H 74-106 mg/dL Problems(with codes): (1) Abnormal finding on GI tract imaging (2) Pancreatic cyst (3) Acute exacerbation of congestive heart failure (4) ESRD on hemodialysis Prognosis Plan Discharge planning is in progress Patient was given my contact information to follow up in my office for re- evaluation of pancreatic cyst Patient indicated her state that they usually food with a gastro group and will likely follow up with them Outpatient elective EUS was advised Once again thank you for allowing me to participate in the care of this patient Plan discussed with: Patient, Other (Director Digital Advertising) BEBO UP MD Dec 02, 2024 21:11
--- NOTE | 2024-12-04 15:21 | ECG ---
[facility] Test Date: 2024-12-01 Test Time: 08:40:14 Pat Name: LIZBETH LU Department: Room: 0218T A Gender: M Hot Walker: Teresa MAXWELL : 1945 Requested By: NARESH BRASHER Order Number: [id number] Reading MD: Noah Alan Measurements Intervals [place] Rate: 62 P: 53 MI: 219 QRS: -53 QRSD: 149 T: -48 QT: 459 QTc: 467 Interpretive Statements Sinus rhythm Borderline prolonged MI interval RBBB and LAFB Electronically Signed On 12-04-2024 19:40:36 PDT by Noah Alan Please click the below link to view image of tracing.
== END 2024-12-02 10:38 | disposition home or self-care (01) | DRG 177 ==
LOC: ER 14:11 → EDBD 14:11 → OVERFLOW 18:13 → TELE-CENTR 22:50
PROVIDERS: ADMIT Family Medicine; ATTEND Family Medicine
PROC: 4B02XSZ Measurement of Cardiac Pacemaker, External Approach (ICD-10-PCS; principal; 2024-12-01)
PROC: 5A1D70Z Performance of Urinary Filtration, Intermittent, Less than 6 Hours Per Day (ICD-10-PCS; 2024-12-02)
DX: J15.69 Pneumonia due to other Gram-negative bacteria (principal); I50.33 Acute on chronic diastolic (congestive) heart failure; J96.00 Acute respiratory failure, unspecified whether with hypoxia or hypercapnia; N18.6 End stage renal disease; J44.1 Chronic obstructive pulmonary disease with (acute) exacerbation; E87.1 Hypo-osmolality and hyponatremia; I13.2 Hypertensive heart and chronic kidney disease with heart failure and with stage 5 chronic kidney disease, or end stage renal disease; K86.2 Cyst of pancreas; N25.81 Secondary hyperparathyroidism of renal origin; J15.9 Unspecified bacterial pneumonia; E11.22 Type 2 diabetes mellitus with diabetic chronic kidney disease; F03.90 Unspecified dementia, unspecified severity, without behavioral disturbance, psychotic disturbance, mood disturbance, and anxiety; I25.10 Atherosclerotic heart disease of native coronary artery without angina pectoris; G47.33 Obstructive sleep apnea (adult) (pediatric); M54.9 Dorsalgia, unspecified; E11.51 Type 2 diabetes mellitus with diabetic peripheral angiopathy without gangrene; G89.29 Other chronic pain; I08.1 Rheumatic disorders of both mitral and tricuspid valves; I35.1 Nonrheumatic aortic (valve) insufficiency; Z79.01 Long term (current) use of anticoagulants; Z79.02 Long term (current) use of antithrombotics/antiplatelets; Z79.82 Long term (current) use of aspirin; Z79.899 Other long term (current) drug therapy; Z82.3 Family history of stroke; Z82.49 Family history of ischemic heart disease and other diseases of the circulatory system; Z83.3 Family history of diabetes mellitus; Z86.718 Personal history of other venous thrombosis and embolism; Z86.73 Personal history of transient ischemic attack (TIA), and cerebral infarction without residual deficits; Z86.74 Personal history of sudden cardiac arrest; Z87.891 Personal history of nicotine dependence; Z95.0 Presence of cardiac pacemaker; Z95.5 Presence of coronary angioplasty implant and graft; Z99.2 Dependence on renal dialysis; Z88.1 Allergy status to other antibiotic agents; E87.5 Hyperkalemia
CPT/HCPCS: 36415; 71045; 71275; 76705; 80048; 80053; 82105; 82962; 83690; 83735; 83880; 83970; 84100; 84484; 85025; 85379; 86301; 86703; 86705; 86706; 86803; 87040; 87340; 90935; 93005; 93306; 93970; 96374; 99291; G0378; J1642; J1815; J2405; J3490

== ENCOUNTER 2025-02-26 11:06 | Inpatient (IN) | payer OTHER, MEDICAID ==
[2025-02-26] VITALS (7 sets, daily range): BP systolic 147–186; BP diastolic 63–84; PULSE 60–69; RESP 11–18; TEMP 97.8–98; O2SAT 94–100
[~2025-02-26] VITALS: Ht 167.6 cm; Wt 64.5 kg
[~2025-02-26 11:06] MED LIST changes: +CALC1TAB92 PO; +CHOL20007 OR; +HYDR-4798 PO; +LACT10PA2 PO; +REVE175S IN; +RIVA10TA PO; +THIA100T10 PO; +TIZA4CAP PO
--- NOTE | 2025-02-26 11:29 | ED.PDOC ---
HPI Comments 79 year old male PMhx CAD, CHF, CVA, COPD, DM, ESRD, HLD, HTN, MS, Dementia, DVT with pacemaker, cardiac stents presents to the ED via EMS with a chief compliant of chest pain onset today (02/26/25). Per EMS, patient went to see Dr. Gaffney, follow up appointment, began experiencing chest pain, 911 was called. He was given Aspirin 324 mg by facility, was given Nitro by EMS in route to ED. Patient states he is currently experiencing 8/10, LT sided chest pain, radiating to back and neck. He is also experiencing shortness of breath, abdominal pain, nausea/vomiting. He is currently on Xarelto, has dialysis Wednesday, Wednesday, Wednesday, has not gone today, goes at 14:30. Denies fever, chills, cough, cold, congestion, hematemesis, weakness. No other symptoms or modifying factors present at this time. Chief Complaint: Chest Pain Time Seen by MD: 11:20 Primary Care Provider: UNKNOWN Reviewed Notes: Nurses Notes, Medications, Allergies Allergies: Coded Allergies: Lisinopril (Verified Adverse Reaction, Severe, ANGIOEDEMA, 09/23/23) FACE,TONGUE, LIP SWELLING Home Meds Active Scripts Rivaroxaban (XARELTO) 10 Mg Tab, 1 TAB PO DAILY, #90 TAB Prov:NARESH BRASHER MD 12/02/24 Hydrocodone-Acetaminophen (Hydrocodone Bitartrate/AC 10-325 mg) 1 Tab Tab, 1 TAB PO BID PRN, #40 TAB Prov:NARESH BRASHER MD 12/02/24 Insulin Isophane & Reg (Human) (Humulin 70/30 (70-30) 100 Unit/ml) 1 Units/0.01 Ml Inj, 10 UNITS SC BID, #1000 UNITS Prov:PETER LAMAR MD 06/10/24 Pantoprazole Sodium Sesquihydr (Protonix) 40 Mg Tab, 40 MG PO DAILY, #30 TAB Prov:PETER LAMAR MD 06/10/24 Vancomycin HCl (Vancomycin HCl) 125 Mg Cap, 125 MG PO QID for 14 Days, #56 CAP Prov:PETER LAMAR MD 06/10/24 Reported Medications Tizanidine Hydrochloride (Zanaflex) 4 Mg Cap, 8 MG PO HS, CAP 11/29/24 Revefenacin (Yupelri) 175 Mcg/3 Ml Lolita, 8 MCG IN DAILY, ML 11/29/24 Cholecalciferol (VITAMIN D3) 2,000 Unit Tab, 5000 UNIT OR QWEEKLY, TAB 11/29/24 Thiamine Hcl (VITAMIN B-1) 100 Mg Tb, 50 MG PO, TAB 11/29/24 Calcium Carbonate (Calcium) 600 Mg Tab, 600 MG PO BID, TAB 11/29/24 Lactulose (Lactulose) 10 Gm Darrian, 10 GM PO BID, PACK 11/29/24 Donepezil Hydrochloride (DONEPEZIL HCL) 5 Mg Tab, 1 TAB PO DAILY, #30 TAB 5 Refills 06/06/24 Insulin Isophane & Reg (Human) (Humulin 70/30 (70-30) 100 Unit/ml) 1 Units/0.01 Ml Inj 06/05/24 Ipratropium [place] (Ipratropium [place]) 0.02 % Lolita, NEB BID 06/05/24 Patiromer Sorbitex Calcium (Veltassa) 8.4 Gm Pow, 1 PKT PO 06/05/24 Hydrocodone-Acetaminophen (Hydrocodone/Acetaminophen 10-325 mg) 1 Tab Tab, 1 TAB PO BID, TAB 06/05/24 Clonidine Hydrochloride (Clonidine Hcl) 0.1 Mg Tab, 0.1 MG PO PRN for SBP>160, TAB 06/05/24 Meclizine HCl (Meclizine 25) 25 Mg Tab, 25 MG PO PRN for DIZZINESS, TAB 06/05/24 Trazodone HCl (Trazodone Hydrochloride) 50 Mg Tab, 50 MG PO HS, TAB 06/05/24 Clopidogrel Bisulfate (Plavix) 75 Mg Tab, 75 MG PO DAILY, TAB 06/05/24 Pantoprazole Sodium Sesquihydr (Protonix) 40 Mg Tab, 40 MG PO DAILY, #30 TAB 10/28/23 Bupropion HCl (Bupropion Hydrochloride) 75 Mg Tab, 150 MG PO DAILY, TAB 10/28/23 Atorvastatin Calcium (ATORVASTATIN CALCIUM) 40 Mg Tab, 80 MG PO QPM, #90 TAB 3 Refills 10/28/23 Minoxidil (Loniten) 2.5 Mg Tb, 1 TAB PO BID 09/15/23 Hydralazine Hcl (Hydralazine Hcl) 50 Mg Tab, 1 TAB PO BID 09/15/23 Aspirin (Aspirin Low Dose) 81 Mg Chw, 1 TAB PO DAILY 09/15/23 Nitroglycerin (Nitrostat) 0.4 Mg Sub, 1 TAB SL Q5MIN PRN for CHEST PAIN for 30 Days, #25 09/15/23 Nifedipine (Nifedipine Er) 30 Mg Tab, 1 TAB PO BID 09/15/23 Duloxetine HCl (Duloxetine HCl) 30 Mg Cap, 1 CAP PO DAILY 09/15/23 Information Source: Patient, Emergency Med Personnel Mode of Arrival: EMS Severity: Moderate Timing: Hours Duration: Since onset Prehospital treatment: 12 Lead EKG Location: Chest (L) Radiation: Back, Neck Quality: Sharp Onset: At Rest Cardiac Risk Factors: Hyperlipidemia, HTN, Diabetes PE Risk Factors: None History of: MS Modifying Factors: Nothing Associated Signs and Symptoms: SOB, Abdominal Pain, N/V, Back Pain Past Medical History PAST MEDICAL HISTORY: CAD, CHF, COPD, CVA, Dementia, DM, ESRD, High Lipids, HTN, MS Surgical History: Hernia Repair, Pacemaker, PTCA, Tonsillectomy Surgical History (Other): RT hip surgery, cataract surgery Family History Family History: Family hx of DM, Family hx of heart emani, Family hx of stroke Social History Smoker: Quit Greater Than 1 Year Alcohol: Denies ETOH Use Drugs: Denies Drug Use Lives In: Home Constitutional: denies: chills, diaphoresis, fatigue, fever, malaise, sweats, weakness, others EENTM: denies: blurred vision, double vision, ear bleeding, ear discharge, ear drainage, ear pain, ear ringing, eye pain, eye redness, hearing loss, mouth pain, mouth swelling, nasal discharge, nose bleeding, nose congestion, nose pain, photophobia, tearing, throat pain, throat swelling, voice changes, others Respiratory: reports: shortness of breath; denies: cough, hemoptysis, orthopnea, SOB at rest, SOB with excertion, stridor, wheezing, others Cardiovascular: reports: chest pain; denies: dizzy spells, diaphoresis, Dyspnea on exertion, edema, irregular heart beat, left arm pain, lightheadedness, palpitations, PND, syncope, others Gastrointestinal: reports: abdominal pain, nausea, vomiting; denies: abdomen distended, blood streaked bowels, constipated, diarrhea, dysphagia, difficulty swallowing, hematemesis, melena, poor appetite, poor fluid intake, rectal bleeding, rectal pain, others Genitourinary: denies: burning, dysuria, flank pain, frequency, hematuria, incontinence, penile discharge, penile sore, pain, testicle pain, testicle swell ing, urgency, others Neurological: denies: dizziness, fainting, headache, left sided numbness, left sided weakness, numbness, paresthesia, pre-existing deficit, right sided numbness, right sided weakness, seizure, speech problems, tingling, tremors, weakness, others Musculoskeletal: reports: back pain, neck pain; denies: gout, joint pain, joint swelling, muscle pain, muscle stiffness, others Integumetry: denies: bruises, change in color, change in hair/nails, dryness, laceration, lesions, lumps, rash, wounds, others Allergic/Immunocompromised: denies: Difficulty Healing, Frequent Infections, Hives, Itching, others Hematologic/Lymphatic: denies: anemia, blood clots, easy bleeding, easy bruising, swollen glands, others Endocrine: denies: excessive hunger, excessive sweating, excessive thirst, excessive urination, flushing, intolerance to cold, intolerance to heat, unexplained weight gain, unexplained weight loss, others Psychiatric: denies: anxiety, bipolar disorder, depression, hopeless, panic disorder, schizophrenia, sleepless, suicidal, others All Other Systems: Reviewed and Negative Physical Exam General Appearance: Moderate Distress HEENT: Pale Conjuntivae (L), Pale Conjuntivae (R), Pharynx Normal, TMs Normal Neck: Full Range of Motion, Non-Tender, Normal, Normal Inspection Respiratory: Chest Non-Tender, Lungs Clear, No Accessory Muscle Use, No Respiratory Distress, Normal Breath Sounds Cardiovascular: No Edema, No JVD, No Murmur, No Gallop, Normal Peripheral Pulses, Regular Rate/Rhythm Breast Exam: Deferred Gastrointestinal: No Organomegaly, Non Tender, No Pulsatile Mass, Normal Bowel Sounds, Soft Genitalia: Deferred Pelvic: Deferred Rectal: Deferred Extremities: No calf tenderness, Normal capillary refill, No pedal edema, Other (Fistula to the right upper extremity) Musculoskeletal : Apperance: Normal Neurologic: Alert, 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 Was a procedure done?: No CP Differential Dx Differential Diagnosis: Angina, MS, Pulmonary Embolus Differential Diagnosis: CHF Differential Diagnosis: Pericarditis X-Ray, Labs, Meds, VS Vital Signs Date Time Temp Pulse Resp B/P (MAP) Pulse Ox O2 Delivery O2 Flow Rate FiO2 02/26/25 12:55 67 02/26/25 12:30 67 02/26/25 12:00 70 02/26/25 12:00 71 13 147/63 (91) 100 02/26/25 11:26 69 11 100 Non-Rebreather 10 N/A 02/26/25 11:25 97.8 71 12 138/59 (85) 100 97.8 02/26/25 11:17 97.5 71 18 155/63 93 97.5 02/26/25 11:08 74 Lab Test 02/26/25 12:43 02/26/25 11:40 Range/Units Troponin I High Sensitivity 86 *H 112 *H </=54 ng/L White Blood Count 5.2 4.4-10.8 10^3/uL Red Blood Count 2.53 L 4.5-5.90 10^6/uL Hemoglobin 8.2 L 13.5-17.5 g/dL Hematocrit 24.1 L 41.0-53.0 % Mean Corpuscular Volume 95.2 80.0-100.0 fL Mean Corpuscular Hemoglobin 32.5 H 28.0-32.0 pg Mean Corpuscular Hemoglobin Concent 34.1 32.0-36.0 g/dL Red Cell Distribution Width 14.6 H 11.8-14.3 % Platelet Count 230 140-450 10^3/uL Mean Platelet Volume 6.7 L 6.9-10.8 fL Neutrophils (%) (Auto) 73.9 37.0-80.0 % Lymphocytes (%) (Auto) 8.7 L 10.0-50.0 % Monocytes (%) (Auto) 12.4 H 0.0-12.0 % Eosinophils (%) (Auto) 4.4 0.0-7.0 % Basophils (%) (Auto) 0.6 0.0-2.0 % Neutrophils # (Auto) 3.8 1.6-8.6 10 ^3/uL Lymphocytes # (Auto) 0.4 0.4-5.4 10 ^3/uL Monocytes # (Auto) 0.6 0-1.3 10 ^3/uL Eosinophils # (Auto) 0.2 0-0.8 10 ^3/uL Basophils # (Auto) 0 0-0.2 10 ^3/uL Nucleated Red Blood Cells 0.0 % Sodium Level 132 L 136-145 mmol/L Potassium Level 3.5 3.5-5.1 mmol/L Chloride Level 89 L 98-107 mmol/L Carbon Dioxide Level 28 20-31 mmol/L Anion Gap 15 5-15 Blood Urea Nitrogen 44 H 9-23 mg/dL Creatinine 7.47 H 0.700-1.30 mg/dL Glomerular Filtration Rate Calc 7 >90 mL/min BUN/Creatinine Ratio 5.9 L 10.0-20.0 Serum Glucose 120 H 74-106 mg/dL Calcium Level 8.5 L 8.7-10.4 mg/dL B-Type Natriuretic Peptide 634.40 0-100 pg/mL PROCEDURE(s): CXRP - CHEST PORTABLE IMPRESSION: 1. Minimal change from 11/28/2024 2. Findings may represent chronic changes or congestive failure. The patient's CBC shows anemia with a hemoglobin of 8.2 hematocrit of 424.1 The chemistry panel shows a BUN of 44 and a creatinine of 7.47 The rest of the CBC is within normal limits The BNP is 634.4 At this time the patient is being admitted to the hospitalist The patient understands and agrees with the management. Images Reviewed?: Images reviewed and evaluated by me Time of 1ST Reevaluation: 11:50 Reevaluation 1ST: Unchanged Patient Education/Counseling: Diagnosis, Treatment, Prognosis Family Education/Counseling: No Family Present SEPSIS Sepsis Screen Date sepsis recognized/suspect: Feb 26, 2025 Time Sepsis recognized/suspect: 1107 Recent Procedure: No On Antibiotic Therapy: No Respiratory Rate >20: No Heart Rate >90: No Temp<36 C (96.8 F) or >38.3 C: No SBP <90 or MAP <65 mmHG: No New Acute Mental Status Change: No Is the patient on CPAP, BIPAP,: No Physician Orders Electrocardigram (02/26/25 12:11) Electrocardigram (02/26/25 14:11) Chest Portable (02/26/25 11:25) Heplock Iv (02/26/25 11:25) Cereal Supervisor (02/26/25 11:25) Blood Pressure (02/26/25 11:25) Pulse Oximetry (02/26/25 11:25) Urinalysis (02/26/25 11:25) Covid19 Antigen Lilly (02/26/25 ) Troponin-I Hs (02/26/25 14:25) Vital Signs Date Time Temp Pulse Resp B/P (MAP) Pulse Ox O2 Delivery O2 Flow Rate FiO2 02/26/25 12:55 67 02/26/25 12:30 67 02/26/25 12:00 70 02/26/25 12:00 71 13 147/63 (91) 100 02/26/25 11:26 69 11 100 Non-Rebreather 10 N/A 02/26/25 11:25 97.8 71 12 138/59 (85) 100 97.8 02/26/25 11:17 97.5 71 18 155/63 93 97.5 02/26/25 11:08 74 Laboratory Tests Test 02/26/25 11:40 White Blood Count 5.2 10^3/uL (4.4-10.8) Departure 1 Departure Time of Disposition: 13:35 Impression: Primary Impression: Acute chest pain Additional Impressions: Acute myocardial ischemia ESRD on dialysis Disposition: 09 ADMITTED INPATIENT Admit to: Tele Condition: Fair Critical Care Note Critical Care Time?: Yes (45 min-critical care time only) Stability Stability form required: Yes Unstable for transfer: Telemetry monitoring (Telemetry monitoring required), ED Physician Assesment (Clinical assesment) Heart Score Heart Score: Heart Score Response (Comments) Value History Moderate Suspicious 1 EKG Repolarization Disturb 1 Age >65 2 Risk Factors >3 or Hx ASHD 2 Troponin Normal limit 0 Total 6 I personally scribed for MELINA RAND MD ([email or web address]) on 02/26/25 at 11:29. Electronically submitted by Eboni Hamilton ([email or web address]). I personally scribed for MELINA RAND MD ([email or web address]) on 02/26/25 at 12:23. Electronically submitted by Eboni Hamilton ([email or web address]). I personally scribed for MELINA RAND MD ([email or web address]) on 02/26/25 at 12:55. Electronically submitted by Eboni Hamilton [email or web address]). MELINA RAND MD Feb 26, 2025 11:29
[2025-02-26 12:00] LABS: Hematocrit 24.1 % (41.0-53.0); Hemoglobin 8.2 g/dL (13.5-17.5); Mean Corpuscular Hemoglobin 32.5 pg (28.0-32.0); Mean Corpuscular Volume 95.2 fL (80.0-100.0); Nucleated Red Blood Cells % 0.0 %
--- NOTE | 2025-02-26 12:01 | DVH ---
CHEST RADIOGRAPH Indication: sob Technique: Single frontal view of the chest was obtained Comparison: XY CHEST PORTABLE on DOS: 11/28/24, XY CHEST PORTABLE on DOS: 06/03/24, XY CHEST PORTABLE on DOS: 04/24/24 FINDINGS: Lines and Tubes: None Lungs: Interstitial markings unchanged from 11/28/2024. May represent chronic pulmonary fibrosis or p ulmonary vascular congestion. Pleura: No effusion. No pneumothorax. Cardiomediastinal contours: Stable cardiomegaly Bones: No acute osseous abnormality. IMPRESSION: 1. Minimal change from 11/28/2024 2. Findings may represent chronic changes or congestive failure.
[2025-02-26 12:09] LABS: Anion Gap 15 (5-15); Carbon Dioxide 28 mmol/L (20-31)
[2025-02-26 12:10] LABS: Chloride 89 mmol/L (98-107); Potassium 3.5 mmol/L (3.5-5.1); Sodium 132 mmol/L (136-145)
[2025-02-26 12:11] LABS: Calcium 8.5 mg/dL (8.7-10.4)
[2025-02-26 12:15] LABS: BUN/Creatinine Ratio 5.9 (10.0-20.0); Blood Urea Nitrogen 44 mg/dL (9-23); Glucose 120 mg/dL (74-106)
--- NOTE | 2025-02-26 12:31 | ECG ---
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
--- NOTE | 2025-02-26 14:14 | ECG ---
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
[2025-02-26] MEDS ORDERED: MORPHINE SULFATE INJ 2 MG/ml SYRG IV PRN ×2 (15:30)
[2025-02-26] MEDS: HYDROcodone-ACET 10/325MG TAB PO PRN (15:53)
[2025-02-26] MEDS: ACETAMINOPHEN 325 MG TAB PO PRN (16:32)
--- NOTE | 2025-02-26 17:08 | DVHHP2 ---
History of Present Illness Reason for Visit: Low oxygen, chest pain History of Present Illness Dariel Honeycutt is an 79-year-old male with past medical history of ESRD on HD, COPD, diabetes, hypertension, and hyperlipidemia, who came to the hospital for shortness of breath and chest pain. Patient lives alone, but his ex- is a close friend and caregiver, she is with him daily. She states she was taking him to Dr. Gaffney'chanel for a carotid ultrasound, but his portable oxygen concentrator does not work too well and by the time they got there his oxygenation was around 50%. EMS was called and patient was placed on 6L N/C. On arrival to ER his oxygenation was 70% on 6L and he was switched to 15L Oxymizer. On assessment patient was resting in bed on 6L N/C, no S/S of distress, denies any chest pain. Cardiovascular: HTN, hyperipidemia Endocrine: Diabetes Past Surgical History: Cataract Removal, Hernia Repair, Other (right hip ORIF, Right arm fistula, Pacemaker, ) Smoke: No ALCOHOL: none Drugs: None Lives: Alone Domestic Violence: Neg Review of Systems Constitutional: No: Fever, Chills, Sweats, Weakness, Malaise, Other Eyes: No: Pain, Vision change, Conjunctivae inflammation, Eyelid inflammation, Other, Redness ENT: No: Ear pain, Ear discharge, Nose pain, Nose discharge, Nose congestion, Mouth pain, Mouth swelling, Throat pain, Throat swelling, Other Respiratory: Shortness of breath, SOB with excertion; No: Cough, Dry, Wheezing, Hemoptysis, Pleuritic Pain, Sputum, Wheezing, Other Cardiovascular: Chest Pain; No: Palpitations, Orthopnea, Paroxysmal Noc. Dyspnea, Edema, Lt Headedness, Other Gastrointestinal: No: Nausea, Vomiting, Abdominal Pain, Diarrhea, Constipation, Melena, Hematochezia, Other Genitourinary: No Dysuria, No Frequency, No Incontinence, No Hematuria, No Retention, No Other Musculoskeletal: No: other, neck pain, shoulder pain, arm pain, back pain, hand pain, leg pain, foot pain Skin: No: Rash, Lesions, Jaundice, Bruising, Other Neurological: No: Weakness, Numbness, Incoordination, Change in speech, Confusion, Seizures, Other Allergies: Coded Allergies: Lisinopril (Verified Adverse Reaction, Severe, ANGIOEDEMA, 09/23/23) FACE,TONGUE, LIP SWELLING Medications Current Medications Medications Dose Ordered Sig/Nereyda Route Start Time Stop Time Status Last Admin Dose Admin Sodium Chloride 10 ml Q8HR IV 02/26/25 22:00 Ondansetron HCl 4 mg Q4HP PRN IV 02/26/25 15:30 Docusate Sodium 100 mg BIDPRN PRN PO 02/26/25 15:30 Acetaminophen 650 mg Q6HP PRN PO 02/26/25 15:30 Morphine Sulfate 2 mg Q4HPRN PRN IV 02/26/25 15:30 Hold Nitroglycerin 0.4 mg Q5MINP PRN SL 02/26/25 15:30 Morphine Sulfate 2 mg Q30M PRN IV 02/26/25 15:30 Bupropion HCl 150 mg DAILY PO 02/27/25 10:00 UNV Clonidine HCl 0.1 mg Q8HPRN PRN PO 02/26/25 15:30 UNV Duloxetine HCl 30 mg DAILY PO 02/27/25 10:00 UNV Acetaminophen/ Hydrocodone Bitart 1 tab BID PRN PO 02/26/25 15:30 Meclizine HCl 25 mg BIDP PRN PO 02/26/25 15:30 Minoxidil 2.5 mg BID PO 02/26/25 22:00 UNV Nifedipine 30 mg BID PO 02/26/25 22:00 UNV Pantoprazole Sodium 40 mg DAILY PO 02/27/25 10:00 Trazodone HCl 50 mg HS PO 02/26/25 22:00 UNV Patient Own Medication 1 tab DAILY PO 02/27/25 10:00 UNV Patient Own Medication 80 mg QPM PO 02/26/25 18:00 UNV Patient Own Medication 1 tab BID PO 02/26/25 22:00 UNV Exam Vital Signs Vital Signs Date Time Temp Pulse Resp B/P (MAP) Pulse Ox O2 Delivery O2 Flow Rate FiO2 02/26/25 14:13 62 02/26/25 12:00 13 147/63 (91) 100 02/26/25 11:26 Non-Rebreather 10 N/A 02/26/25 11:25 97.8 97.8 General Appearance: Alert, Oriented X3, Cooperative, mild distress HEENT: Atraumatic, PERRLA, Mucous membr. moist/pink Respiratory: Other (Diminshed breath sounds) Cardiovascular: Regular rate, Normal S1, Normal S2 Abdominal: Normal bowel sounds, Soft, No tenderness Extremities: No clubbing, No cyanosis, No edema, Normal pulses, Other (right arm fistula) Skin: No rashes, No breakdown, No significant lesion Neuro: Normal gait, Normal speech, Strength at 5/5 X4 ext Psych/Mental Status: Mental status NL, Mood NL Labs/Xrays Labs Test 02/26/25 14:33 02/26/25 11:40 Range/Units Troponin I High Sensitivity 92 *H </=54 ng/L White Blood Count 5.2 4.4-10.8 10^3/uL Red Blood Count 2.53 L 4.5-5.90 10^6/uL Hemoglobin 8.2 L 13.5-17.5 g/dL Hematocrit 24.1 L 41.0-53.0 % Mean Corpuscular Volume 95.2 80.0-100.0 fL Mean Corpuscular Hemoglobin 32.5 H 28.0-32.0 pg Mean Corpuscular Hemoglobin Concent 34.1 32.0-36.0 g/dL Red Cell Distribution Width 14.6 H 11.8-14.3 % Platelet Count 230 140-450 10^3/uL Mean Platelet Volume 6.7 L 6.9-10.8 fL Neutrophils (%) (Auto) 73.9 37.0-80.0 % Lymphocytes (%) (Auto) 8.7 L 10.0-50.0 % Monocytes (%) (Auto) 12.4 H 0.0-12.0 % Eosinophils (%) (Auto) 4.4 0.0-7.0 % Basophils (%) (Auto) 0.6 0.0-2.0 % Neutrophils # (Auto) 3.8 1.6-8.6 10 ^3/uL Lymphocytes # (Auto) 0.4 0.4-5.4 10 ^3/uL Monocytes # (Auto) 0.6 0-1.3 10 ^3/uL Eosinophils # (Auto) 0.2 0-0.8 10 ^3/uL Basophils # (Auto) 0 0-0.2 10 ^3/uL Nucleated Red Blood Cells 0.0 % Sodium Level 132 L 136-145 mmol/L Potassium Level 3.5 3.5-5.1 mmol/L Chloride Level 89 L 98-107 mmol/L Carbon Dioxide Level 28 20-31 mmol/L Anion Gap 15 5-15 Blood Urea Nitrogen 44 H 9-23 mg/dL Creatinine 7.47 H 0.700-1.30 mg/dL Glomerular Filtration Rate Calc 7 >90 mL/min BUN/Creatinine Ratio 5.9 L 10.0-20.0 Serum Glucose 120 H 74-106 mg/dL Calcium Level 8.5 L 8.7-10.4 mg/dL B-Type Natriuretic Peptide 634.40 0-100 pg/mL CHEST RADIOGRAPH FINDINGS: Lines and Tubes: None Lungs: Interstitial markings unchanged from 11/28/2024. May represent chronic pulmonary fibrosis or pulmonary vascular congestion. Pleura: No effusion. No pneumothorax. Cardiomediastinal contours: Stable cardiomegaly Bones: No acute osseous abnormality. IMPRESSION: 1. Minimal change from 11/28/2024 2. Findings may represent chronic changes or congestive failure. SEPSIS Sepsis Screen Date sepsis recognized/suspect: Feb 26, 2025 Time Sepsis recognized/suspect: 1107 Recent Procedure: No On Antibiotic Therapy: No Respiratory Rate >20: No Heart Rate >90: No Temp<36 C (96.8 F) or >38.3 C: No SBP <90 or MAP <65 mmHG: No New Acute Mental Status Change: No Is the patient on CPAP, BIPAP,: No Physician Orders Electrocardigram (02/26/25 14:11) Chest Portable (02/26/25 11:25) Heplock Iv (02/26/25 11:25) Machine Setter Sheet Metal (02/26/25 11:25) Blood Pressure (02/26/25 11:25) Pulse Oximetry (02/26/25 11:25) Urinalysis (02/26/25 11:25) Covid19 Antigen Lilly (02/26/25 ) *Dr. Kamila Potts (02/26/25 15:28) Admit (02/26/25 15:29) Code Status (02/26/25 15:29) Renal Standard(2gna,3gk,Lopho) (02/26/25 Dinner) Sodium Chloride Lock (Saline Lock Ns) (02/26/25 22:00) Ondansetron Hcl (Zofran) (02/26/25 15:30) Docusate Sodium Capsule (Colace Capsule) (02/26/25 15:30) Fall Risk Precautions In Place QSHIFT (02/26/25 15:29) Complete Blood Count (02/27/25 04:00) Comprehensive Metabolic Panel (02/27/25 04:00) Condition: Serious (02/26/25 15:29) Acetaminophen Tablet (Tylenol Tablet) (02/26/25 15:30) Morphine Sulfate Injection (02/26/25 15:30) Nitroglycerin Sublingual (Ntrostat Subli (02/26/25 15:30) Morphine Sulfate Injection (02/26/25 15:30) Stat Ekg For Chest Pain (02/26/25:) Notify Md Of Changes From Base (02/26/25:) Supervisor Coremaker For 24 Hours (02/26/25 15:29) Emergency Dysrhythmia Protocol (02/26/25 15:29) Rhythm Strips Once Every Shift (02/26/25 15:29) Oxygen By Nasal Cannula (02/26/25 15:29) Bupropion Tablet (Wellbutrin Tablet) (02/27/25 10:00) Clonidine Hcl Tablet (Catapres Tablet) (02/26/25 15:30) Duloxetine Hcl Capsule (Cymbalta Capsule (02/27/25 10:00) Hydrocodone-Acet 10/325mg Tab ([place] 10/ (02/26/25 15:30) Meclizine Tablet (Antivert Tablet) (02/26/25 15:30) Minoxidil Tablet (Loniten Tablet) (02/26/25 22:00) Nifedipine Er (Procardia Xl (Time-Releas (02/26/25 22:00) Pantoprazole Tablet (Protonix Tablet) (02/27/25 10:00) Trazodone Hcl (Desyrel) (02/26/25 22:00) (Nf) Aspirin (Aspirin Low Dose) (02/27/25 10:00) (Nf) Atorvastatin Calcium (02/26/25 18:00) (Nf) Hydralazine Hcl (02/26/25 22:00) Vital Signs Date Time Temp Pulse Resp B/P (MAP) Pulse Ox O2 Delivery O2 Flow Rate FiO2 02/26/25 14:13 62 02/26/25 12:55 67 02/26/25 12:30 67 02/26/25 12:00 70 02/26/25 12:00 71 13 147/63 (91) 100 02/26/25 11:26 69 11 100 Non-Rebreather 10 N/A 02/26/25 11:25 97.8 71 12 138/59 (85) 100 97.8 02/26/25 11:17 97.5 71 18 155/63 93 97.5 02/26/25 11:08 74 Laboratory Tests Test 02/26/25 11:40 White Blood Count 5.2 10^3/uL (4.4-10.8) Assessment/Plan Assessment/Plan Assessment: Acute hypoxic respiratory failure, Chest pain, Elevated troponin, Fluid overloaded, Anemia, ESRD on HD, Diabetes, Hypertension, Hyperlipidemia, Plan: Admit to Tele, Nephrology consult, Consider cardiology consult if chest pain persist, IV antibiotics, Supplemental oxygen, Accu checks Q AC&HS with sliding scale, Home medications reconciled, Plan discussed with: Patient, Spouse My Orders Orders - SAMRA MEDLEY Procedure Category Date Status Time *Dr. Kamila Potts CONS 02/26/25 Transmitted 15:28 Admit ADMIT 02/26/25 Transmitted 15:29 Code Status CODE 02/26/25 Transmitted 15:29 Renal DIET 02/26/25 Transmitted Standard(2gna,3gk,Lopho) Dinner Sodium Chloride Lock PHA 02/26/25 In Process (Saline Lock Ns) 22:00 Ondansetron Hcl PHA 02/26/25 In Process (Zofran) 15:30 Docusate Sodium PHA 02/26/25 In Process Capsule (Colace 15:30 Fall Risk Precautions SHAYLA 02/26/[address] 15:29 Complete Blood Count LAB 02/27/25 Verified 04:00 Comprehensive LAB 02/27/25 Verified Metabolic Panel 04:00 Condition: Serious SHAYLA 02/26/25 In Process 15:29 Acetaminophen Tablet PHA 02/26/25 In Process (Tylenol Tablet) 15:30 Morphine Sulfate PHA 02/26/25 In Process Injection 15:30 Nitroglycerin PHA 02/26/25 In Process Sublingual (Ntrostat 15:30 Morphine Sulfate PHA 02/26/25 In Process Injection 15:30 Stat Ekg For Chest SHAYLA 02/26/25 In Process Pain 15:29 Notify Md Of Changes SHAYLA 02/26/25 In Process From Base 15:29 Supervisor Coremaker For [facility] 02/26/25 In Process 24 Hours 15:29 Emergency Dysrhythmia [facility] 02/26/25 In Process Protocol 15:29 Rhythm Strips Once [facility] 02/26/25 In Process Every Shift 15:29 Oxygen By Nasal RT 02/26/25 Transmitted Cannula 15:29 Bupropion Tablet PHA 02/27/25 Logged (Wellbutrin Tablet) 10:00 Clonidine Hcl Tablet PHA 02/26/25 Logged (Catapres Tablet) 15:30 Duloxetine Hcl PHA 02/27/25 Logged Capsule (Cymbalta 10:00 Hydrocodone-Acet PHA 02/26/25 In Process 10/325mg Tab ([place] 15:30 Meclizine Tablet PHA 02/26/25 In Process (Antivert Tablet) 15:30 Minoxidil Tablet PHA 02/26/25 Logged (Loniten Tablet) 22:00 Nifedipine Er PHA 02/26/25 Logged (Procardia Xl 22:00 Pantoprazole Tablet PHA 02/27/25 In Process (Protonix Tablet) 10:00 Trazodone Hcl PHA 02/26/25 Logged (Desyrel) 22:00 (Nf) Aspirin (Aspirin PHA 02/27/25 Logged Low Dose) 10:00 (Nf) Atorvastatin PHA 02/26/25 Logged Calcium 18:00 (Nf) Hydralazine Hcl PHA 02/26/25 Logged 22:00 Date of Service: Feb 26, 2025 Billing Provider: SAMRA MEDLEY Common Visit Codes: [id number] INP/OBS CARE (HIGH) SAMRA MEDLEY Feb 26, 2025 17:08
[2025-02-26] MEDS ORDERED: AZITHROMYCIN 500MG/ 250ML 250 ML IV ONE (17:15)
[2025-02-26] MEDS: IPRATROPIUM BROM 0.5 MG/2.5ML INH SOL NEB PRN (18:02)
[2025-02-26] MEDS: ALBUTEROL SULF 2.5 MG/0.5ML(0.5%) NEB SOLN NEB PRN (18:02)
[2025-02-26 18:34] LABS: COVID19 ANTIGEN SOFIA FIA NEGATIVE (NEGATIVE)
--- NOTE | 2025-02-26 18:38 | DVHINCON2 ---
Date of service: Feb 26, [address] Platt Reason for Consultation ESRD on HD History of Present Illness Dariel Honeycutt is an 79-year-old male with Past Medical History pertinent for ESRD on HD, COPD, Diabetes, Hypertension and Hyperlipidemia who presented to the hospital for shortness of breath and chest pain. Patient's caregiver was taking him to Dr. Gaffney'chanel for a carotid ultrasound but his portable oxygen concentrator does not work too well and by the time they got there his oxygenation was around 50%. EMS was called and patient was placed on 6L N/C. Upon arrival to ER oxygenation was 70% on 6L and patient was switched to 15L Oxymizer. Currently stable on 6L NC. Patient denies any current chest pain. Chest x-ray reported findings may represent chronic changes or congestive f ailure. Covid-19 test negative. K 3.5. Na of 132. Creatinine 7.47 with BUN of 44. Allergies: Coded Allergies: Lisinopril (Verified Adverse Reaction, Severe, ANGIOEDEMA, 09/23/23) FACE,TONGUE, LIP SWELLING Home Meds Active Scripts Hydrocodone-Acetaminophen (Hydrocodone Bitartrate/AC 10-325 mg) 1 Tab Tab, 1 TAB PO BID PRN, #40 TAB Prov:NARESH BRASHER MD 12/02/24 Reported Medications Tizanidine Hydrochloride (Zanaflex) 4 Mg Cap, 8 MG PO HS, CAP 11/29/24 Revefenacin (Yupelri) 175 Mcg/3 Ml Lolita, 8 MCG IN DAILY, ML 11/29/24 Cholecalciferol (VITAMIN D3) 2,000 Unit Tab, 5000 UNIT OR QWEEKLY, TAB 11/29/24 Thiamine Hcl (VITAMIN B-1) 100 Mg Tb, 50 MG PO, TAB 11/29/24 Calcium Carbonate (Calcium) 600 Mg Tab, 600 MG PO BID, TAB 11/29/24 Lactulose (Lactulose) 10 Gm Darrian, 10 GM PO BID, PACK 11/29/24 Donepezil Hydrochloride (DONEPEZIL HCL) 5 Mg Tab, 1 TAB PO DAILY, #30 TAB 5 Refills 06/06/24 Insulin Isophane & Reg (Human) (Humulin 70/30 (70-30) 100 Unit/ml) 1 Units/0.01 Ml Inj 06/05/24 Ipratropium Greenback (Ipratropium Greenback) 0.02 % Lolita, NEB BID 06/05/24 Patiromer Sorbitex Calcium (Veltassa) 8.4 Gm Pow, 1 PKT PO 06/05/24 Clonidine Hydrochloride (Clonidine Hcl) 0.1 Mg Tab, 0.1 MG PO PRN for SBP>160, TAB 06/05/24 Meclizine HCl (Meclizine 25) 25 Mg Tab, 25 MG PO PRN for DIZZINESS, TAB 06/05/24 Trazodone HCl (Trazodone Hydrochloride) 50 Mg Tab, 50 MG PO HS, TAB 06/05/24 Pantoprazole Sodium Sesquihydr (Protonix) 40 Mg Tab, 40 MG PO DAILY, #30 TAB 10/28/23 Bupropion HCl (Bupropion Hydrochloride) 75 Mg Tab, 150 MG PO DAILY, TAB 10/28/23 Atorvastatin Calcium (ATORVASTATIN CALCIUM) 40 Mg Tab, 80 MG PO QPM, #90 TAB 3 Refills 10/28/23 Minoxidil (Loniten) 2.5 Mg Tb, 1 TAB PO BID 09/15/23 Hydralazine Hcl (Hydralazine Hcl) 50 Mg Tab, 1 TAB PO BID 09/15/23 Aspirin (Aspirin Low Dose) 81 Mg Chw, 1 TAB PO DAILY 09/15/23 Nitroglycerin (Nitrostat) 0.4 Mg Sub, 1 TAB SL Q5MIN PRN for CHEST PAIN for 30 Days, #25 09/15/23 Nifedipine (Nifedipine Er) 30 Mg Tab, 1 TAB PO BID 09/15/23 Duloxetine HCl (Duloxetine HCl) 30 Mg Cap, 1 CAP PO DAILY 09/15/23 Discontinued Reported Medications Hydrocodone-Acetaminophen (Hydrocodone/Acetaminophen 10-325 mg) 1 Tab Tab, 1 TAB PO BID, TAB 06/05/24 Clopidogrel Bisulfate (Plavix) 75 Mg Tab, 75 MG PO DAILY, TAB 06/05/24 Discontinued Scripts Rivaroxaban (XARELTO) 10 Mg Tab, 1 TAB PO DAILY, #90 TAB Prov:NARESH BRASHER MD 12/02/24 Insulin Isophane & Reg (Human) (Humulin 70/30 (70-30) 100 Unit/ml) 1 Units/0.01 Ml Inj, 10 UNITS SC BID, #1000 UNITS Prov:PETER LAMAR MD 06/10/24 Pantoprazole Sodium Sesquihydr (Protonix) 40 Mg Tab, 40 MG PO DAILY, #30 TAB Prov:PETER LAMAR MD 06/10/24 Vancomycin HCl (Vancomycin HCl) 125 Mg Cap, 125 MG PO QID for 14 Days, #56 CAP Prov:PETER LAMAR MD 06/10/24 Current Medications Current Medications Medications (Trade) Dose Ordered Sig/Nereyda Route PRN Reason Start Time Stop Time Status Last Admin Sodium Chloride (Saline Lock Ns) 10 ml Q8HR IV 02/26/25 22:00 Ondansetron HCl (Zofran) 4 mg Q4HP PRN IV NAUSEA / VOMITING 02/26/25 15:30 Docusate Sodium (Colace Capsule) 100 mg BIDPRN PRN PO FOR CONSTIPATION 02/26/25 15:30 Acetaminophen (Tylenol Tablet) 650 mg Q6HP PRN PO PAIN SCALE 1-3 OR TEMP>100.4 02/26/25 15:30 02/26/25 16:32 Morphine Sulfate 2 mg Q4HPRN PRN IV SEVERE PAIN (7-10 PAIN SCALE) 02/26/25 15:30 Hold Nitroglycerin (Ntrostat Sublingual) 0.4 mg Q5MINP PRN SL FOR CHEST PAIN 02/26/25 15:30 Morphine Sulfate 2 mg Q30M PRN IV FOR CHEST PAIN 02/26/25 15:30 Bupropion HCl (Wellbutrin Tablet) 150 mg DAILY PO 02/27/25 10:00 Clonidine HCl (Catapres Tablet) 0.1 mg Q8HPRN PRN PO SBP>160 02/26/25 15:30 Duloxetine HCl (Cymbalta Capsule) 30 mg DAILY PO 02/27/25 10:00 Acetaminophen/ Hydrocodone Bitart ([place] 10/325MG Tab) 1 tab BID PRN PO PAIN SCALE 7 THRU 10 02/26/25 15:30 02/26/25 15:53 Meclizine HCl (Antivert Tablet) 25 mg BIDP PRN PO DIZZINESS 02/26/25 15:30 Minoxidil (Loniten Tablet) 2.5 mg BID PO 02/26/25 22:00 Nifedipine (Procardia Xl (Time-Release)) 30 mg BID PO 02/26/25 22:00 Pantoprazole Sodium (Protonix Tablet) 40 mg DAILY PO 02/27/25 10:00 Trazodone HCl (Desyrel) 50 mg HS PO 02/26/25 22:00 Aspirin 81 mg DAILY PO 02/27/25 10:00 Atorvastatin Calcium (Lipitor) 80 mg HS PO 02/26/25 22:00 Patient Own Medication 1 tab BID PO 02/26/25 22:00 Future Hold Donepezil HCl (Aricept Tablet) 5 mg DAILY PO 02/27/25 10:00 Ipratropium [place] (Atrovent Medneb) 0.5 mg Q4HPRN PRN NEB SHORTNESS OF BREATH 02/26/25 16:15 02/26/25 18:02 Albuterol (Ventolin Medneb) 2.5 mg Q4HPRN PRN NEB SHORTNESS OF BREATH 02/26/25 16:15 02/26/25 18:02 Diagnostic Test (Pha) (Accu-Chek Comfort Curve T) 1 strip ACHS 02/26/25 22:00 Insulin Human Regular (InsuLIN R) HS SC 02/26/25 22:00 Insulin Human Regular (InsuLIN R) AC SC 02/27/25 07:00 Dextrose 50 ml UD PRN IV Blood Sugar LESS THAN 60 02/26/25 17:15 Ceftriaxone Sodium 50 ml @ 100 mls/hr DAILY@09 IV 02/27/25 09:00 Azithromycin 250 ml @ 125 mls/hr DAILY IV 02/27/25 10:00 02/26/25 17:47 DC Family History: Family history: Cardiovascular disease G8 BROTHER Family history: Diabetes mellitus G8 MOTHER G8 FATHER G8 BROTHER Family history: Hypertension G8 MOTHER G8 FATHER G8 BROTHER Stroke G8 MOTHER Review of Systems Respiratory: Shortness of breath, SOB with excertion; No: Cough, Dry, Wheezing, Hemoptysis, Pleuritic Pain, Sputum, Wheezing, Other Cardiovascular: Chest Pain; No: Palpitations, Orthopnea, Paroxysmal Noc. Dyspnea, Edema, Lt Headedness, Other Neurological: No: Weakness, Numbness, Incoordination, Change in speech, Confusion, Seizures, Other All other systems reviewed and negative unless otherwise noted in HPI. H&P Exam Vital Signs/I&O Vital Sign Date Time Temp Pulse Resp B/P (MAP) Pulse Ox O2 Delivery O2 Flow Rate FiO2 10/6/25 18:01 63 13 161/63 (95) 96 02/26/25 16:22 97.8 10.0 60 97.8 02/26/25 11:26 Non-Rebreather Physical Exam Vitals and nursing notes reviewed. General Appearance: In no acute distress. HEENT: Atraumatic, PERRLA, Mucous membr. moist/pink Respiratory: Other (Diminshed breath sounds) Cardiovascular: Regular rate, Normal S1, Normal S2 Abdominal: Normal bowel sounds, Soft, No tenderness Extremities: No clubbing, No cyanosis, No edema, Normal pulses, Other (right arm fistula) Skin: No rashes, No breakdown, No significant lesion Neuro: Alert, Oriented X3, Normal speech Psych/Mental Status: Mental status NL, Mood NL Labs/Diagnostic Data Labs/Diagnostic Data Laboratory Tests Test 02/26/25 16:50 02/26/25 14:33 02/26/25 12:43 02/26/25 11:40 Range/Units SARS-CoV-2 Antigen (Rapid) Negative NEGATIVE Troponin I High Sensitivity 92 *H 86 *H 112 *H </=54 ng/L White Blood Count 5.2 4.4-10.8 10^3/uL Red Blood Count 2.53 L 4.5-5.90 10^6/uL Hemoglobin 8.2 L 13.5-17.5 g/dL Hematocrit 24.1 L 41.0-53.0 % Mean Corpuscular Volume 95.2 80.0-100.0 fL Mean Corpuscular Hemoglobin 32.5 H 28.0-32.0 pg Mean Corpuscular Hemoglobin Concent 34.1 32.0-36.0 g/dL Red Cell Distribution Width 14.6 H 11.8-14.3 % Platelet Count 230 140-450 10^3/uL Mean Platelet Volume 6.7 L 6.9-10.8 fL Neutrophils (%) (Auto) 73.9 37.0-80.0 % Lymphocytes (%) (Auto) 8.7 L 10.0-50.0 % Monocytes (%) (Auto) 12.4 H 0.0-12.0 % Eosinophils (%) (Auto) 4.4 0.0-7.0 % Basophils (%) (Auto) 0.6 0.0-2.0 % Neutrophils # (Auto) 3.8 1.6-8.6 10 ^3/uL Lymphocytes # (Auto) 0.4 0.4-5.4 10 ^3/uL Monocytes # (Auto) 0.6 0-1.3 10 ^3/uL Eosinophils # (Auto) 0.2 0-0.8 10 ^3/uL Basophils # (Auto) 0 0-0.2 10 ^3/uL Nucleated Red Blood Cells 0.0 % Sodium Level 132 L 136-145 mmol/L Potassium Level 3.5 3.5-5.1 mmol/L Chloride Level 89 L 98-107 mmol/L Carbon Dioxide Level 28 20-31 mmol/L Anion Gap 15 5-15 Blood Urea Nitrogen 44 H 9-23 mg/dL Creatinine 7.47 H 0.700-1.30 mg/dL Glomerular Filtration Rate Calc 7 >90 mL/min BUN/Creatinine Ratio 5.9 L 10.0-20.0 Serum Glucose 120 H 74-106 mg/dL Calcium Level 8.5 L 8.7-10.4 mg/dL B-Type Natriuretic Peptide 634.40 0-100 pg/mL Assessment Acute hypoxic respiratory failure Chest pain Elevated troponin ESRD on HD Plan/Recommendation Agreement with your ongoing assessment and plan of care. Urgent dialysis scheduled for today. IV antibiotics with Ceftriaxone. Azithromycin discontinued. MedNeb breathing treatments q4h prn. Supplemental oxygen to keep sats >92%. Home medications resumed. GI prophylaxis. Renal diet. Additional plan as per the hospital course. Plan discussed with: Patient, Other (RN) HARJINDER RUTHERFORD DO Feb 26, 2025 18:38
[2025-02-26] MEDS ORDERED: PATIENTS OWN MEDICATION (Hydralazine Hcl 1 TAB) PO SCH (22:00)
[2025-02-26] MEDS: MINOXIDIL 2.5 MG TAB PO SCH (22:00)
[2025-02-26] MEDS: SODIUM CHLOR 0.9% PF (SALINE LOCK) 10ML VIAL/SYR IV SCH (22:15)
[2025-02-26] MEDS: ACCU-CHEK COMFORT CURVE STRIP VI SCH (22:37)
[2025-02-26] MEDS: InsuLIN REG 1unit/0.01ml Soln (100units/ml) SC SCH (22:37)
[2025-02-27] VITALS (13 sets, daily range): BP systolic 139–186; BP diastolic 66–91; PULSE 60–80; RESP 17–20; TEMP 97.5–98.1; O2SAT 91–100
[2025-02-27] MEDS: ATORVASTATIN 20 MG TAB PO SCH (00:24)
[2025-02-27 06:13] LABS: Hemoglobin 8.2 g/dL (13.5-17.5); Nucleated Red Blood Cells % 0.1 %
[2025-02-27 06:15] LABS: Hematocrit 24.2 % (41.0-53.0); Mean Corpuscular Hemoglobin 32.1 pg (28.0-32.0); Mean Corpuscular Volume 94.7 fL (80.0-100.0)
[2025-02-27] MEDS: InsuLIN REG 1unit/0.01ml Soln (100units/ml) SC SCH (06:18)
[2025-02-27 06:29] LABS: Alanine Aminotransferase < 9 U/L (7-40); Albumin 3.8 g/dL (3.2-4.8); Alkaline Phosphatase 70 U/L (46-116); Anion Gap 15 (5-15); BUN/Creatinine Ratio 5.1 (10.0-20.0); Blood Urea Nitrogen 43 mg/dL (9-23); Calcium 8.5 mg/dL (8.7-10.4); Carbon Dioxide 28 mmol/L (20-31); Chloride 88 mmol/L (98-107); Glucose 76 mg/dL (74-106); Potassium 3.9 mmol/L (3.5-5.1); Sodium 131 mmol/L (136-145); Total Protein 6.8 g/dL (5.7-8.2)
[2025-02-27 06:30] LABS: Bilirubin, Total 0.2 mg/dL (0.2-1.0)
--- NOTE | 2025-02-27 07:37 | ECG ---
[facility] Test Date: 2025-02-26 Test Time: 11:08:38 Pat Name: LIZBETH LU Department: [facility] ED Patient ID: [facility]-[id number] Room: 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
--- NOTE | 2025-02-27 08:40 | DVHPN2 ---
Subjective No complaints now Doing better Will be dialyzed today Changes from previous H/P or p: Changes Eyes: No Pain, No Vision change, No Conjunctivae inflammation, No Eyelid inflammation, No Other, No Redness ENT: No Ear pain, No Ear discharge, No Nose pain, No Nose discharge, No Nose congestion, No Mouth pain, No Mouth swelling, No Throat pain, No Throat swelling, No Other Cardiovascular: Chest Pain; No Palpitations, No Orthopnea, No Paroxysmal Noc. Dyspnea, No Edema, No Lt Headedness, No Other Respiratory: No Cough, No Dry; Shortness of breath, SOB with excertion; No Wheezing, No Hemoptysis, No Pleuritic Pain, No Sputum, No Other Gastrointestinal: No Nausea, No Vomiting, No Abdominal Pain, No Diarrhea, No Constipation, No Melena, No Hematochezia, No Other Genitourinary: No Dysuria, No Frequency, No Incontinence, No Hematuria, No Retention, No Other Musculoskeletal: No other, No neck pain, No shoulder pain, No arm pain, No back pain, No hand pain, No leg pain, No foot pain Skin: No Rash, No Lesions, No Jaundice, No Bruising, No Other Objective Vitals Vital Signs Date Time Temp Pulse Resp B/P (MAP) Pulse Ox O2 Delivery O2 Flow Rate FiO2 02/27/25 08:25 97.8 68 18 144/70 (94) 91 97.8 02/27/25 06:42 Nasal Cannula 2.0 02/27/25 06:42 28 Intake/Output Intake and Output 02/27/25 07:00 Intake Total 400 ml Output Total 0 ml Balance 400 ml Intake Oral 400 ml Output Urine Total 0 ml General Appearance: Alert, Oriented X3 Lungs: Clear to auscultation, Normal air movement Cardiovascular: Regular rate, Normal S1, Normal S2 Abdomen: Normal bowel sounds, Soft, No tenderness Extremities: No edema Medications Current Medications Medications Dose Ordered Sig/Nereyda Route Start Time Stop Time Status Last Admin Dose Admin Sodium Chloride 10 ml Q8HR IV 02/26/25 22:00 02/27/25 06:18 10 ML Ondansetron HCl 4 mg Q4HP PRN IV 02/26/25 15:30 Docusate Sodium 100 mg BIDPRN PRN PO 02/26/25 15:30 Acetaminophen 650 mg Q6HP PRN PO 02/26/25 15:30 02/26/25 16:32 650 MG Morphine Sulfate 2 mg Q4HPRN PRN IV 02/26/25 15:30 Hold Nitroglycerin 0.4 mg Q5MINP PRN SL 02/26/25 15:30 Morphine Sulfate 2 mg Q30M PRN IV 02/26/25 15:30 Bupropion HCl 150 mg DAILY PO 02/27/25 10:00 Clonidine HCl 0.1 mg Q8HPRN PRN PO 02/26/25 15:30 Duloxetine HCl 30 mg DAILY PO 02/27/25 10:00 Acetaminophen/ Hydrocodone Bitart 1 tab BID PRN PO 02/26/25 15:30 02/27/25 00:25 1 TAB Meclizine HCl 25 mg BIDP PRN PO 02/26/25 15:30 Minoxidil 2.5 mg BID PO 02/26/25 22:00 02/26/25 22:00 2.5 MG Nifedipine 30 mg BID PO 02/26/25 22:00 02/26/25 22:00 30 MG Pantoprazole Sodium 40 mg DAILY PO 02/27/25 10:00 Trazodone HCl 50 mg HS PO 02/26/25 22:00 02/26/25 22:00 50 MG Aspirin 81 mg DAILY PO 02/27/25 10:00 Atorvastatin Calcium 80 mg HS PO 02/26/25 22:00 02/27/25 00:24 80 MG Patient Own Medication 1 tab BID PO 02/26/25 22:00 Hold Donepezil HCl 5 mg DAILY PO 02/27/25 10:00 Ipratropium [place] 0.5 mg Q4HPRN PRN NEB 02/26/25 16:15 02/26/25 18:02 0.5 MG Albuterol 2.5 mg Q4HPRN PRN NEB 02/26/25 16:15 02/26/25 18:02 2.5 MG Diagnostic Test (Pha) 1 strip ACHS 02/26/25 22:00 02/27/25 06:18 1 STRIP Insulin Human Regular HS SC 02/26/25 22:00 02/26/25 22:37 2 UNITS Insulin Human Regular AC SC 02/27/25 07:00 Dextrose 50 ml UD PRN IV 02/26/25 17:15 Ceftriaxone Sodium 50 ml @ 100 mls/hr DAILY@09 IV 10/7/25 09:00 Laboratory Results Laboratory Tests 02/27/25 05:45 Chemistry Test 02/26/25 11:40 02/27/25 05:45 Calcium Level 8.5 mg/dL (8.7-10.4) L 8.5 mg/dL (8.7-10.4) L Albumin 3.8 g/dL (3.2-4.8) Total Protein 6.8 g/dL (5.7-8.2) Cardiac Markers Test 02/26/25 11:40 B-Type Natriuretic Peptide 634.40 pg/mL (0-100) LFT Test 02/27/25 05:45 Alanine Aminotransferase (ALT) < 9 U/L (7-40) Alkaline Phosphatase 70 U/L (46-116) Aspartate Amino Transferase (AST) 18 U/L (13-40) Total Bilirubin 0.2 mg/dL (0.2-1.0) Assessment/Plan Assessment/Plan Acute hypoxic respiratory failure, resolved Chronic respiratory failure on home O2 ESRD COPD DM2 HTN Mixed hyperlipidemia Elevated troponin PLAN: HD today O2 prn Resume home meds Discharge after dialysis Plan discussed with: Patient Date of Service: Feb 27, 2025 Billing Provider: PETER LAMAR MD Common Visit Codes: NOT BILLABLE PETER LAMAR MD Feb 27, 2025 08:40
[2025-02-27] MEDS: DONEPEZIL HYDROCHLORIDE 5 MG TAB PO SCH (09:03)
[2025-02-27] MEDS: PANTOPRAZOLE 40 MG TAB PO SCH (09:04)
[2025-02-27] MEDS ORDERED: AZITHROMYCIN 500MG/ 250ML 250 ML IV SCH (10:00)
--- NOTE | 2025-02-27 10:04 | DVHDS2 ---
Discharge Summary Date of Admission Feb 26, 2025 at 15:29 Date of Discharge: Feb 27, 2025 Labs/Diagnostic Data: Laboratory Results Test 02/27/25 06:10 02/27/25 05:45 02/27/25 04:40 02/26/25 16:50 POC Glucose 86 mg/dl (70-106) White Blood Count 5.4 10^3/uL (4.4-10.8) Red Blood Count 2.55 10^6/uL (4.5-5.90) Hemoglobin 8.2 g/dL (13.5-17.5) Hematocrit 24.2 % (41.0-53.0) Mean Corpuscular Volume 94.7 fL (80.0-100.0) Mean Corpuscular Hemoglobin 32.1 pg (28.0-32.0) Mean Corpuscular Hemoglobin Concent 33.9 g/dL (32.0-36.0) Red Cell Distribution Width 14.6 % (11.8-14.3) Platelet Count 205 10^3/uL (140-450) Mean Platelet Volume 7.0 fL (6.9-10.8) Neutrophils (%) (Auto) 62.5 % (37.0-80.0) Lymphocytes (%) (Auto) 15.9 % (10.0-50.0) Monocytes (%) (Auto) 14.9 % (0.0-12.0) Eosinophils (%) (Auto) 6.1 % (0.0-7.0) Basophils (%) (Auto) 0.6 % (0.0-2.0) Neutrophils # (Auto) 3.4 10 ^3/uL (1.6-8.6) Lymphocytes # (Auto) 0.9 10 ^3/uL (0.4-5.4) Monocytes # (Auto) 0.8 10 ^3/uL (0-1.3) Eosinophils # (Auto) 0.3 10 ^3/uL (0-0.8) Basophils # (Auto) 0 10 ^3/uL (0-0.2) Nucleated Red Blood Cells 0.1 % Sodium Level 131 mmol/L (136-145) Potassium Level 3.9 mmol/L (3.5-5.1) Chloride Level 88 mmol/L (98-107) Carbon Dioxide Level 28 mmol/L (20-31) Anion Gap 15 (5-15) Blood Urea Nitrogen 43 mg/dL (9-23) Creatinine 8.45 mg/dL (0.700-1.30) Glomerular Filtration Rate Calc 6 mL/min (>90) BUN/Creatinine Ratio 5.1 (10.0-20.0) Serum Glucose 76 mg/dL (74-106) Calcium Level 8.5 mg/dL (8.7-10.4) Total Bilirubin 0.2 mg/dL (0.2-1.0) Aspartate Amino Transferase (AST) 18 U/L (13-40) Alanine Aminotransferase (ALT) < 9 U/L (7-40) Alkaline Phosphatase 70 U/L (46-116) Total Protein 6.8 g/dL (5.7-8.2) Albumin 3.8 g/dL (3.2-4.8) Influenza Type A Antigen Negative (Negative) Influenza Type B Antigen Negative (Negative) SARS-CoV-2 Antigen (Rapid) Negative (NEGATIVE) Test 02/26/25 14:33 02/26/25 11:40 Troponin I High Sensitivity 92 ng/L (</=54) B-Type Natriuretic Peptide 634.40 pg/mL (0-100) Other Laboratory Tests 02/27/25 05:45 Brief Hx & Hospital Course: 79-year-old male was admitted due to acute respiratory failure due to no oxygen when he was being transported in a car due to his oxygen machine not function properly He was hypoxic and once his oxygen was applied to him again he he remained unstable afterwards This morning his oxygen saturation is normal on 2 L He has home O2 He goes to dialysis He will be dialyzed here today and once dialysis done he can be discharged home to continue same home medications and follow with dialysis as scheduled Final diagnoses: Acute hypoxic respiratory failure Chronic respiratory failure on home O2 COPD End-stage renal disease on hemodialysis Hypertension Mixed hyperlipidemia Elevated troponin of no significant importance Chronic anemia of chronic kidney disease Hyponatremia Condition at Discharge: Stable Final Diagnosis/Problems List Acute hypoxic respiratory failure due to lack of oxygen COPD End-stage renal disease on hemodialysis Chronic respiratory failure on home O2 Discharge Disposition: Home SNF Discharge Will this Physician continue t: No Discharge Instruct/Medications Diet: Consistent carbohydrate, Cardiac 2g Na,low cholest, Renal Activity: Light activity Follow Up/Referral: Hemodialysis as scheduled PCP as soon as possible Medications: Same home medication Scheduled Aspirin (Aspirin Low Dose), 1 TAB PO DAILY, (Reported) Atorvastatin Calcium (Atorvastatin Calcium), 80 MG PO QPM, (Reported) Bupropion HCl (Bupropion Hydrochloride), 150 MG PO DAILY, (Reported) Calcium Carbonate (Calcium), 600 MG PO BID, (Reported) Cholecalciferol (Vitamin D3), 5,000 UNIT OR QWEEKLY, (Reported) Donepezil Hydrochloride (Donepezil Hcl), 1 TAB PO DAILY, (Reported) Duloxetine HCl (Duloxetine HCl), 1 CAP PO DAILY, (Reported) Hydralazine Hcl (Hydralazine Hcl), 1 TAB PO BID, (Reported) Ipratropium Redig (Ipratropium Redig), NEB BID, (Reported) Lactulose (Lactulose), 10 GM PO BID, (Reported) Minoxidil (Loniten), 1 TAB PO BID, (Reported) Nifedipine (Nifedipine Er), 1 TAB PO BID, (Reported) Pantoprazole Sodium Sesquihydr (Protonix), 40 MG PO DAILY, (Reported) Revefenacin (Yupelri), 8 MCG IN DAILY, (Reported) Tizanidine Hydrochloride (Zanaflex), 8 MG PO HS, (Reported) Trazodone HCl (Trazodone Hydrochloride), 50 MG PO HS, (Reported) Scheduled PRN Clonidine Hydrochloride (Clonidine Hcl), 0.1 MG PO for SBP>160, (Reported) Hydrocodone-Acetaminophen (Hydrocodone Bitartrate/AC 10-325 mg), 1 TAB PO BID PRN Meclizine HCl (Meclizine 25), 25 MG PO for DIZZINESS, (Reported) Nitroglycerin (Nitrostat), 1 TAB SL Q5MIN PRN for CHEST PAIN, (Reported) Miscellaneous Medications Insulin Isophane & Reg (Human) (Humulin 70/30 (70-30) 100 Unit/ml), (Reported) Patiromer Sorbitex Calcium (Veltassa), 1 PKT PO, (Reported) Thiamine Hcl (Vitamin B-1), 50 MG PO, (Reported) Discontinued Medications Clopidogrel Bisulfate (Plavix), 75 MG PO DAILY, (Reported) Hydrocodone-Acetaminophen (Hydrocodone/Acetaminophen 10-325 mg), 1 TAB PO BID, (Reported) Insulin Isophane & Reg (Human) (Humulin 70/30 (70-30) 100 Unit/ml), 10 UNITS SC BID Pantoprazole Sodium Sesquihydr (Protonix), 40 MG PO DAILY Rivaroxaban (Xarelto), 1 TAB PO DAILY Vancomycin HCl (Vancomycin HCl), 125 MG PO QID Discharge Statement: "Patient was advised to return to the ER or call 911 if any headaches, dizziness, shortness of breath, chest pain, abdominal pain, bleeding, fevers, or worsening of medical condition. Patient was counseled about treatment plan, medications, possible side effects, patientverbalized understanding. All questions were answered to the best of my ability. This discharge took greater then 30 minutes in planning, reviewing documentation, counseling the patient, and discussing with other team members." ASSESSMENT ASSESSMENT Assessment Acute hypoxic respiratory failure due to lack of oxygen COPD End-stage renal disease on hemodialysis Chronic respiratory failure on home O2 Date of Service: Feb 27, 2025 Billing Provider: PETER LAMAR MD Common Visit Codes: NOT BILLABLE PETER LAMAR MD Feb 27, 2025 10:04
[2025-02-27] MEDS: MECLIZINE HCL 25 MG TAB PO PRN (17:36)
[2025-02-27] MEDS: DOCUSATE SOD 100 MG CAP PO PRN (17:40)
--- NOTE | 2025-02-27 21:05 | DVHPN2 ---
Progress Note - Dictate Date Seen: Feb 27, 2025 Has the PT tested + for MRSA If YES, has PT been informed?: No Medical Necessity Reason Pt with a Central, PICC or Fol: No Subjective Patient was seen and evaluated in follow up. No acute events overnight. Patient was being planned for discharge but noted with hypoxic episode this morning. O2 sat was in the 60%. Patient was subsequently placed on non-rebreather and sated at 100%. Placed on oxymizer on 4L per RT. O2 in 90s. Received dialysis today with UF 3.5L. vital signs Vital Sign Date Time Temp Pulse Resp B/P (MAP) Pulse Ox O2 Delivery O2 Flow Rate FiO2 02/27/25 20:13 75 20 100 02/27/25 20:07 Oxymizer 5.0 02/27/25 20:07 N/A 02/27/25 17:15 97.5 170/77 (108) 97.5 Total Intake and Output 02/26/25 02/26/25 02/27/25 15:00 23:00 07:00 Intake Total 400 ml Output Total 0 ml Balance 400 ml medications Current Medications Medications Dose Ordered Sig/Nereyda Route Start Time Stop Time Status Last Admin Dose Admin Sodium Chloride 10 ml Q8HR IV 02/26/25 22:00 02/27/25 12:06 10 ML Ondansetron HCl 4 mg Q4HP PRN IV 02/26/25 15:30 Docusate Sodium 100 mg BIDPRN PRN PO 02/26/25 15:30 02/27/25 17:40 100 MG Acetaminophen 650 mg Q6HP PRN PO 02/26/25 15:30 02/27/25 09:43 650 MG Morphine Sulfate 2 mg Q4HPRN PRN IV 02/26/25 15:30 Hold Nitroglycerin 0.4 mg Q5MINP PRN SL 02/26/25 15:30 Morphine Sulfate 2 mg Q30M PRN IV 02/26/25 15:30 Bupropion HCl 150 mg DAILY PO 02/27/25 10:00 02/27/25 09:02 150 MG Clonidine HCl 0.1 mg Q8HPRN PRN PO 02/26/25 15:30 Duloxetine HCl 30 mg DAILY PO 02/27/25 10:00 02/27/25 09:02 30 MG Acetaminophen/ Hydrocodone Bitart 1 tab BID PRN PO 02/26/25 15:30 02/27/25 17:31 1 TAB Meclizine HCl 25 mg BIDP PRN PO 02/26/25 15:30 02/27/25 17:36 25 MG Minoxidil 2.5 mg BID PO 02/26/25 22:00 02/27/25 09:03 2.5 MG Nifedipine 30 mg BID PO 02/26/25 22:00 02/27/25 09:04 30 MG Pantoprazole Sodium 40 mg DAILY PO 02/27/25 10:00 02/27/25 09:04 40 MG Trazodone HCl 50 mg HS PO 02/26/25 22:00 02/26/25 22:00 50 MG Aspirin 81 mg DAILY PO 02/27/25 10:00 02/27/25 09:05 81 MG Atorvastatin Calcium 80 mg HS PO 02/26/25 22:00 02/27/25 00:24 80 MG Patient Own Medication 1 tab BID PO 02/26/25 22:00 Hold Donepezil HCl 5 mg DAILY PO 02/27/25 10:00 02/27/25 09:03 5 MG Ipratropium [place] 0.5 mg Q4HPRN PRN NEB 02/26/25 16:15 02/27/25 20:07 0.5 MG Albuterol 2.5 mg Q4HPRN PRN NEB 02/26/25 16:15 02/27/25 20:07 2.5 MG Diagnostic Test (Pha) 1 strip ACHS 02/26/25 22:00 02/27/25 16:27 1 STRIP Insulin Human Regular HS SC 02/26/25 22:00 02/26/25 22:37 2 UNITS Insulin Human Regular AC SC 02/27/25 07:00 Dextrose 50 ml UD PRN IV 02/26/25 17:15 Ceftriaxone Sodium 50 ml @ 100 mls/hr DAILY@09 IV 02/27/25 09:00 02/27/25 08:59 100 MLS/HR objective Vitals and nursing notes reviewed. General Appearance: In no acute distress. HEENT: Atraumatic, PERRLA, Mucous membr. moist/pink Respiratory: Clear breath sounds present. Normal effort Cardiovascular: Regular rate, Normal S1, Normal S2 Abdominal: Normal bowel sounds, Soft, No tenderness Extremities: No clubbing, No cyanosis, No edema, Normal pulses, Other (right arm fistula) Skin: No rashes, No breakdown, No significant lesion Neuro: Alert, Oriented X3, Normal speech Psych/Mental Status: Mental status NL, Mood NL laboratory and microbiology Laboratory Tests 02/27/25 05:45 Test 02/27/25 05:45 Range/Units Serum Glucose 76 74-106 mg/dL Problem List Acute hypoxic respiratory failure Chest pain Elevated troponin ESRD on HD Assessment/Plan Agree with current supportive medical care. Dialyzed today. UF 3.5L. Epogen 10,000 u SC x once. IV antibiotics with Ceftriaxone. MedNeb breathing treatments q4h prn. Supplemental oxygen to keep sats >92%. RT support prn. Home medications resumed. GI prophylaxis. Renal diet. Additional plan as per the hospital course. Plan discussed with: Patient (RN) HARJINDER RUTHERFORD DO Feb 27, 2025 21:05
[2025-02-27] MEDS: EPOETIN ALFA-EPBX 10,000 UNIT/1ML VIAL SC ONE (21:27)
[2025-02-28] VITALS (14 sets, daily range): BP systolic 107–161; BP diastolic 44–84; PULSE 65–84; RESP 16–18; TEMP 97.5–98.6; O2SAT 90–100
[2025-02-28] MEDS ORDERED: VANCOMYCIN 1GM/250ML KIT 250 ML IV ONE ×2 (08:45→15:15)
[2025-02-28] MEDS: DOXYCYCLINE 100MG/100ML 100 ML IV SCH (09:55)
[2025-02-28] MEDS: cefTAZidime 1 GM in SODIUM CHL 0.9% 50 ML IV SCH (10:00)
--- NOTE | 2025-02-28 10:25 | DVHPN2 ---
Subjective Became hypoxic again last night He was dialyzed yesterday with a 3-1/2 L removed He is on 6 L nasal cannula this morning with a good saturation Changes from previous H/P or p: Changes Eyes: No Pain, No Vision change, No Conjunctivae inflammation, No Eyelid inflammation, No Other, No Redness ENT: No Ear pain, No Ear discharge, No Nose pain, No Nose discharge, No Nose congestion, No Mouth pain, No Mouth swelling, No Throat pain, No Throat swelling, No Other Cardiovascular: Chest Pain; No Palpitations, No Orthopnea, No Paroxysmal Noc. Dyspnea, No Edema, No Lt Headedness, No Other Respiratory: No Cough, No Dry; Shortness of breath, SOB with excertion; No Wheezing, No Hemoptysis, No Pleuritic Pain, No Sputum, No Other Gastrointestinal: No Nausea, No Vomiting, No Abdominal Pain, No Diarrhea, No Constipation, No Melena, No Hematochezia, No Other Genitourinary: No Dysuria, No Frequency, No Incontinence, No Hematuria, No Retention, No Other Musculoskeletal: No other, No neck pain, No shoulder pain, No arm pain, No back pain, No hand pain, No leg pain, No foot pain Skin: No Rash, No Lesions, No Jaundice, No Bruising, No Other Objective Vitals Vital Signs Date Time Temp Pulse Resp B/P (MAP) Pulse Ox O2 Delivery O2 Flow Rate FiO2 02/28/25 09:54 154/75 02/28/25 07:34 74 16 99 02/28/25 07:28 Nasal Cannula 6.0 02/28/25 07:28 N/A 02/27/25 17:15 97.5 97.5 Intake/Output Intake and Output 02/28/25 07:00 Intake Total 600 ml Output Total 200 ml Balance 400 ml Intake Oral 550 ml IV Total 50 ml Output Urine Total 200 ml Stool Total 0 ml # Voids 2 General Appearance: Alert, Oriented X3 Lungs: Clear to auscultation, Normal air movement Cardiovascular: Regular rate, Normal S1, Normal S2 Abdomen: Normal bowel sounds, Soft, No tenderness Extremities: No edema Medications Current Medications Medications Dose Ordered Sig/Nereyda Route Start Time Stop Time Status Last Admin Dose Admin Sodium Chloride 10 ml Q8HR IV 02/26/25 22:00 02/28/25 06:30 10 ML Ondansetron HCl 4 mg Q4HP PRN IV 02/26/25 15:30 Docusate Sodium 100 mg BIDPRN PRN PO 02/26/25 15:30 02/27/25 17:40 100 MG Acetaminophen 650 mg Q6HP PRN PO 02/26/25 15:30 02/27/25 09:43 650 MG Morphine Sulfate 2 mg Q4HPRN PRN IV 02/26/25 15:30 Hold Nitroglycerin 0.4 mg Q5MINP PRN SL 02/26/25 15:30 Morphine Sulfate 2 mg Q30M PRN IV 02/26/25 15:30 Bupropion HCl 150 mg DAILY PO 02/27/25 10:00 02/28/25 09:35 150 MG Clonidine HCl 0.1 mg Q8HPRN PRN PO 02/26/25 15:30 Duloxetine HCl 30 mg DAILY PO 02/27/25 10:00 02/28/25 09:36 30 MG Acetaminophen/ Hydrocodone Bitart 1 tab BID PRN PO 02/26/25 15:30 02/27/25 17:31 1 TAB Meclizine HCl 25 mg BIDP PRN PO 02/26/25 15:30 02/27/25 17:36 25 MG Minoxidil 2.5 mg BID PO 02/26/25 22:00 02/28/25 09:36 2.5 MG Nifedipine 30 mg BID PO 02/26/25 22:00 02/28/25 09:54 30 MG Pantoprazole Sodium 40 mg DAILY PO 02/27/25 10:00 02/28/25 09:36 40 MG Trazodone HCl 50 mg HS PO 02/26/25 22:00 02/27/25 21:38 50 MG Aspirin 81 mg DAILY PO 02/27/25 10:00 02/28/25 09:36 81 MG Atorvastatin Calcium 80 mg HS PO 02/26/25 22:00 02/27/25 21:28 80 MG Patient Own Medication 1 tab BID PO 02/26/25 22:00 Hold Donepezil HCl 5 mg DAILY PO 02/27/25 10:00 02/28/25 09:37 5 MG Ipratropium [place] 0.5 mg Q4HPRN PRN NEB 02/26/25 16:15 02/28/25 07:28 0.5 MG Albuterol 2.5 mg Q4HPRN PRN NEB 02/26/25 16:15 02/28/25 07:28 2.5 MG Diagnostic Test (Pha) 1 strip ACHS 02/26/25 22:00 02/28/25 06:30 1 STRIP Insulin Human Regular HS SC 02/26/25 22:00 02/27/25 21:57 3 UNITS Insulin Human Regular AC SC 02/27/25 07:00 Dextrose 50 ml UD PRN IV 02/26/25 17:15 Ceftazidime/ Dextrose 1 gm/ Sodium Chloride 50 ml @ 50 mls/hr DAILY IV 02/28/25 10:00 Doxycycline Hyclate 100 ml @ 50 mls/hr Q12H IV 02/28/25 11:00 02/28/25 09:55 50 MLS/HR Laboratory Results Laboratory Tests 02/27/25 05:45 Microbiology Microbiology Date/Time Source Procedure Growth Status 02/27/25 06:33 Nose MRSA Screen - Final Complete Assessment/Plan Assessment/Plan Acute hypoxic respiratory failure, resolved Chronic respiratory failure on home O2 ESRD COPD DM2 HTN Mixed hyperlipidemia Elevated troponin PLAN: HD today O2 prn Resume home meds Discharge after dialysis 02/28/2025: The patient is still becoming hypoxic and he had another episode last night Acute hypoxic respiratory failure could be due to pneumonia versus fluid overload End-stage renal disease on hemodialysis Start broad-spectrum antibiotics for possible underlying pneumonia Oxygen as needed Med neb treatments Physical therapy Out of bed Pulmonary consult Sputum culture Discussed with the ex- and caregiver at the bedside Monitor closely Plan discussed with: Patient, Spouse My Orders Orders - PETER LMAAR MD Procedure Category Date Status Time * Supervisor Opening And Picking CONS 02/27/25 Transmitted Consult Date of Service: Feb 28, 2025 Billing Provider: PETER LAMAR MD Common Visit Codes: NOT BILLABLE PETER LAMAR MD Feb 28, 2025 10:25
[2025-02-28] MEDS: LACTULOSE 20Gm/30ML SOLN PO ONE (11:35)
[2025-02-28] MEDS: Glucerna Carbsteady SHAKE Vanilla 8oz PO SCH (12:00)
--- NOTE | 2025-02-28 13:31 | DVHINCON2 ---
Date of service: Feb 28, [address] Stinson Reason for Consultation Acute on chronic hypoxic respiratory failure History of Present Illness 79-year-old man history of end-stage renal disease on hemodialysis, COPD, diabetes mellitus type 2, hypertension, hyperlipidemia, chronic hypoxic respiratory failure, dependence on supplemental oxygen who presented with shortness of breath and chest pain. He has been having desaturations at nighttime. He initially came in and was placed on a 15 L/min Oxymizer. Last night he desaturated while sleeping. He was initiated noninvasive positive pressure ventilation. Pulmonary consultation is called for evaluation of pneumo ankit, acute on chronic hypoxic respiratory failure on interstitial vascular congestion. Review of systems: 14 point review of systems is negative unless otherwise noted above. Past medical history: end-stage renal disease on hemodialysis, COPD, diabetes mellitus type 2, hypertension, hyperlipidemia, chronic hypoxic respiratory failure, dependence on supplemental oxygen Past surgical history: Cataract removal, hernia repair, right hip ORIF, right arm fistula, pacemaker placement Medications: Reviewed Allergies: Lisinopril causes lip swelling, face/tongue swelling Family history: No family history of premature CAD. No family history of lung disease. Social history: Nonsmoker. No alcohol or illicit drug use. Family History: Family history: Cardiovascular disease G8 BROTHER Family history: Diabetes mellitus G8 MOTHER G8 FATHER G8 BROTHER Family history: Hypertension G8 MOTHER G8 FATHER G8 BROTHER Stroke G8 MOTHER Allergies: Coded Allergies: Lisinopril (Verified Adverse Reaction, Severe, ANGIOEDEMA, 09/23/23) FACE,TONGUE, LIP SWELLING Home Meds Active Scripts Hydrocodone-Acetaminophen (Hydrocodone Bitartrate/AC 10-325 mg) 1 Tab Tab, 1 TAB PO BID PRN, #40 TAB Prov:NARESH BRASHER MD 12/02/24 Reported Medications Tizanidine Hydrochloride (Zanaflex) 4 Mg Cap, 8 MG PO HS, CAP 11/29/24 Revefenacin (Yupelri) 175 Mcg/3 Ml Lolita, 8 MCG IN DAILY, ML 11/29/24 Cholecalciferol (VITAMIN D3) 2,000 Unit Tab, 5000 UNIT OR QWEEKLY, TAB 11/29/24 Thiamine Hcl (VITAMIN B-1) 100 Mg Tb, 50 MG PO, TAB 11/29/24 Calcium Carbonate (Calcium) 600 Mg Tab, 600 MG PO BID, TAB 11/29/24 Lactulose (Lactulose) 10 Gm Darrian, 10 GM PO BID, PACK 11/29/24 Donepezil Hydrochloride (DONEPEZIL HCL) 5 Mg Tab, 1 TAB PO DAILY, #30 TAB 5 Refills 06/06/24 Insulin Isophane & Reg (Human) (Humulin 70/30 (70-30) 100 Unit/ml) 1 Units/0.01 Ml Inj 06/05/24 Ipratropium Mather (Ipratropium Mather) 0.02 % Lolita, NEB BID 06/05/24 Patiromer Sorbitex Calcium (Veltassa) 8.4 Gm Pow, 1 PKT PO 06/05/24 Clonidine Hydrochloride (Clonidine Hcl) 0.1 Mg Tab, 0.1 MG PO PRN for SBP>160, TAB 06/05/24 Meclizine HCl (Meclizine 25) 25 Mg Tab, 25 MG PO PRN for DIZZINESS, TAB 06/05/24 Trazodone HCl (Trazodone Hydrochloride) 50 Mg Tab, 50 MG PO HS, TAB 06/05/24 Pantoprazole Sodium Sesquihydr (Protonix) 40 Mg Tab, 40 MG PO DAILY, #30 TAB 10/28/23 Bupropion HCl (Bupropion Hydrochloride) 75 Mg Tab, 150 MG PO DAILY, TAB 10/28/23 Atorvastatin Calcium (ATORVASTATIN CALCIUM) 40 Mg Tab, 80 MG PO QPM, #90 TAB 3 Refills 10/28/23 Minoxidil (Loniten) 2.5 Mg Tb, 1 TAB PO BID 09/15/23 Hydralazine Hcl (Hydralazine Hcl) 50 Mg Tab, 1 TAB PO BID 09/15/23 Aspirin (Aspirin Low Dose) 81 Mg Chw, 1 TAB PO DAILY 09/15/23 Nitroglycerin (Nitrostat) 0.4 Mg Sub, 1 TAB SL Q5MIN PRN for CHEST PAIN for 30 Days, #25 09/15/23 Nifedipine (Nifedipine Er) 30 Mg Tab, 1 TAB PO BID 09/15/23 Duloxetine HCl (Duloxetine HCl) 30 Mg Cap, 1 CAP PO DAILY 09/15/23 Discontinued Reported Medications Hydrocodone-Acetaminophen (Hydrocodone/Acetaminophen 10-325 mg) 1 Tab Tab, 1 TAB PO BID, TAB 06/05/24 Clopidogrel Bisulfate (Plavix) 75 Mg Tab, 75 MG PO DAILY, TAB 06/05/24 Discontinued Scripts Rivaroxaban (XARELTO) 10 Mg Tab, 1 TAB PO DAILY, #90 TAB Prov:NARESH BRASHER MD 12/02/24 Insulin Isophane & Reg (Human) (Humulin 70/30 (70-30) 100 Unit/ml) 1 Units/0.01 Ml Inj, 10 UNITS SC BID, #1000 UNITS Prov:PETER STINSON MD 06/10/24 Pantoprazole Sodium Sesquihydr (Protonix) 40 Mg Tab, 40 MG PO DAILY, #30 TAB Prov:PETER STINSON MD 06/10/24 Vancomycin HCl (Vancomycin HCl) 125 Mg Cap, 125 MG PO QID for 14 Days, #56 CAP Prov:PETER STINSON MD 06/10/24 Current Medications Current Medications Medications (Trade) Dose Ordered Sig/Nereyda Route PRN Reason Start Time Stop Time Status Last Admin Ceftazidime/ Dextrose 1 gm/ Sodium Chloride 50 ml @ 50 mls/hr DAILY IV 02/28/25 10:00 02/28/25 10:00 Doxycycline Hyclate 100 ml @ 50 mls/hr Q12H IV 02/28/25 11:00 02/28/25 09:55 Enteral Nutritional Formula (Glucerna Carbsteady SHAKE) 240 ml TIDWM PO 02/28/25 12:00 02/28/25 12:00 Lactulose 30 ml DAILYPRN PRN PO FOR CONSTIPATION 03/01/25 10:00 Vital Signs Vital Signs Date Time Temp Pulse Resp B/P (MAP) Pulse Ox O2 Delivery O2 Flow Rate FiO2 02/28/25 11:09 74 18 100 02/28/25 11:03 Nasal Cannula 6.0 02/28/25 11:03 N/A 02/28/25 09:54 154/75 02/28/25 09:00 97.5 97.5 Physical Exam Gen.: Patient lying in bed in no apparent distress. On supplemental oxygen. Head: Normocephalic, atraumatic Eyes: EOMI/PERRLA. Ears: Normal hearing. Normal anatomy. Neck/trachea: Trachea midline, supple. Nose: Normal external anatomy. Mouth: Moist mucous membranes. Chest: Decreased air entry bilaterally. No wheezing . Bibasilar rhonchi. Cardio vascular: Positive S1, positive S2. Regular rate and rhythm. Abdomen: Positive bowel sounds in all 4 quadrants. Soft, non-tender, non-d istended. : Deferred. Rectal: Deferred Skin: Warm, dry. Extremities: 2+ radial pulses bilaterally. No lower extremity edema. Neuro: Awake, alert, oriented x3. No gross motor or sensory deficits. Cranial nerves II through XII intact. Gait not assessed. Labs/Diagnostic Data Labs Test 02/28/25 11:34 02/27/25 05:45 02/27/25 04:40 02/26/25 16:50 Range/Units POC Glucose 213 H 70-106 mg/dl White Blood Count 5.4 4.4-10.8 10^3/uL Red Blood Count 2.55 L 4.5-5.90 10^6/uL Hemoglobin 8.2 L 13.5-17.5 g/dL Hematocrit 24.2 L 41.0-53.0 % Mean Corpuscular Volume 94.7 80.0-100.0 fL Mean Corpuscular Hemoglobin 32.1 H 28.0-32.0 pg Mean Corpuscular Hemoglobin Concent 33.9 32.0-36.0 g/dL Red Cell Distribution Width 14.6 H 11.8-14.3 % Platelet Count 205 140-450 10^3/uL Mean Platelet Volume 7.0 6.9-10.8 fL Neutrophils (%) (Auto) 62.5 37.0-80.0 % Lymphocytes (%) (Auto) 15.9 10.0-50.0 % Monocytes (%) (Auto) 14.9 H 0.0-12.0 % Eosinophils (%) (Auto) 6.1 0.0-7.0 % Basophils (%) (Auto) 0.6 0.0-2.0 % Neutrophils # (Auto) 3.4 1.6-8.6 10 ^3/uL Lymphocytes # (Auto) 0.9 0.4-5.4 10 ^3/uL Monocytes # (Auto) 0.8 0-1.3 10 ^3/uL Eosinophils # (Auto) 0.3 0-0.8 10 ^3/uL Basophils # (Auto) 0 0-0.2 10 ^3/uL Nucleated Red Blood Cells 0.1 % Sodium Level 131 L 136-145 mmol/L Potassium Level 3.9 3.5-5.1 mmol/L Chloride Level 88 L 98-107 mmol/L Carbon Dioxide Level 28 20-31 mmol/L Anion Gap 15 5-15 Blood Urea Nitrogen 43 H 9-23 mg/dL Creatinine 8.45 H 0.700-1.30 mg/dL Glomerular Filtration Rate Calc 6 >90 mL/min BUN/Creatinine Ratio 5.1 L 10.0-20.0 Serum Glucose 76 74-106 mg/dL Calcium Level 8.5 L 8.7-10.4 mg/dL Total Bilirubin 0.2 0.2-1.0 mg/dL Aspartate Amino Transferase (AST) 18 13-40 U/L Alanine Aminotransferase (ALT) < 9 7-40 U/L Alkaline Phosphatase 70 46-116 U/L Total Protein 6.8 5.7-8.2 g/dL Albumin 3.8 3.2-4.8 g/dL Influenza Type A Antigen Negative Negative Influenza Type B Antigen Negative Negative SARS-CoV-2 Antigen (Rapid) Negative NEGATIVE Test 02/26/25 14:33 02/26/25 11:40 Range/Units Troponin I High Sensitivity 92 *H </=54 ng/L B-Type Natriuretic Peptide 634.40 0-100 pg/mL Microbiology Date/Time Source Procedure Growth Status 02/27/25 06:33 Nose MRSA Screen - Final Complete Assessment Impression: Acute on chronic hypoxic respiratory failure Elevated troponin Pulmonary edema Pulmonary vascular congestion line end-stage renal disease on hemodialysis Can not rule out underlying pneumonia Plan: Chest x-ray reviewed. Interstitial lung opacities. May be pulmonary vascular congestion versus underlying pneumonia. Supplemental oxygen line currently on Oxymizer at 6 L/min Titrate to keep O2 saturation above 92%. Complete short antibiotic course. Send sputum for Gram stain and culture. Follow up MRSA nares results. If negative, recommended discontinue vancomycin Bronchodilators Monitor renal function Hemodialysis per nephrology Monitor electrolytes Supplement as necessary. Monitor ins and outs Arrange for stationary concentrator at home that goes up to 10 L/min Social work Services consultation placed Obtain an ABG to assess acid-base status GI prophylaxis-Protonix Discussed with patient Ex- who is patient's caregiver and NOK. Discussed with HANS Joaquin and Dr Stinson Prognosis: Poor given multiple comorbidities. Rest of plan per hospitalist and other consultants. Thank you Dr. Stinson for allowing me to participate in this patient's care. Further recommendations will depend on patient's clinical course. Please do not hesitate to contact me if you have any questions or concerns. This medical document was created using an electronic medical record system with [employer] dictation system. Although this document has been carefully reviewed, there may still be some phonetic and typographical errors. These areas are purely typographical due to imperfections of the software programs, and do not reflect any compromise in the patient's medical care. Plan discussed with: Spouse, Other (RN Emani, MD Dr Stinson) Visit Coding Pulmonary Billing Provider: JUAN SALDAÑA MD Date of Service if different f: Feb 28, 2025 Common Visit Codes: [id number] INP/OBS CARE (HIGH) JUAN SALDAÑA MD Feb 28, 2025 13:31
[2025-02-28 13:50] LABS: Base Excess 6.6 mmol/L (-2.0-3.0)
[2025-02-28] MEDS: VANCOMYCIN 1.5GM/250ML 250 ML IV ONE (17:06)
--- NOTE | 2025-02-28 18:34 | DVHPN2 ---
Progress Note - Dictate Date Seen: Feb 28, 2025 Has the PT tested + for MRSA If YES, has PT been informed?: No Medical Necessity Reason Pt with a Central, PICC or Fol: No Subjective Patient was seen and evaluated in follow up. Chart/events reviewed. Patient desaturated last night while sleeping. He was placed on noninvasive positive pressure ventilation. Patient endorses wheezing and reports dyspnea. Currently on Oxymizer at 6 L/min. vital signs Vital Sign Date Time Temp Pulse Resp B/P (MAP) Pulse Ox O2 Delivery O2 Flow Rate FiO2 02/28/25 13:37 76 16 100 02/28/25 13:31 Nasal Cannula* 6 N/A Hi-Flow NC 02/28/25 09:54 154/75 02/28/25 09:00 97.5 97.5 Total Intake and Output 02/27/25 02/27/25 02/28/25 15:00 23:00 07:00 Intake Total 50 ml 550 ml Output Total 0 ml 200 ml Balance 50 ml 0 ml 350 ml medications Current Medications Medications Dose Ordered Sig/Nereyda Route Start Time Stop Time Status Last Admin Dose Admin Sodium Chloride 10 ml Q8HR IV 02/26/25 22:00 02/28/25 12:53 10 ML Ondansetron HCl 4 mg Q4HP PRN IV 02/26/25 15:30 Docusate Sodium 100 mg BIDPRN PRN PO 02/26/25 15:30 02/27/25 17:40 100 MG Acetaminophen 650 mg Q6HP PRN PO 02/26/25 15:30 02/27/25 09:43 650 MG Morphine Sulfate 2 mg Q4HPRN PRN IV 02/26/25 15:30 Hold Nitroglycerin 0.4 mg Q5MINP PRN SL 02/26/25 15:30 Morphine Sulfate 2 mg Q30M PRN IV 02/26/25 15:30 Bupropion HCl 150 mg DAILY PO 02/27/25 10:00 02/28/25 09:35 150 MG Clonidine HCl 0.1 mg Q8HPRN PRN PO 02/26/25 15:30 Duloxetine HCl 30 mg DAILY PO 02/27/25 10:00 02/28/25 09:36 30 MG Acetaminophen/ Hydrocodone Bitart 1 tab BID PRN PO 02/26/25 15:30 02/27/25 17:31 1 TAB Meclizine HCl 25 mg BIDP PRN PO 02/26/25 15:30 02/27/25 17:36 25 MG Minoxidil 2.5 mg BID PO 02/26/25 22:00 02/28/25 09:36 2.5 MG Nifedipine 30 mg BID PO 02/26/25 22:00 02/28/25 09:54 30 MG Pantoprazole Sodium 40 mg DAILY PO 02/27/25 10:00 02/28/25 09:36 40 MG Trazodone HCl 50 mg HS PO 02/26/25 22:00 02/27/25 21:38 50 MG Aspirin 81 mg DAILY PO 02/27/25 10:00 02/28/25 09:36 81 MG Atorvastatin Calcium 80 mg HS PO 02/26/25 22:00 02/27/25 21:28 80 MG Patient Own Medication 1 tab BID PO 02/26/25 22:00 Hold Donepezil HCl 5 mg DAILY PO 02/27/25 10:00 02/28/25 09:37 5 MG Ipratropium [place] 0.5 mg Q4HPRN PRN NEB 02/26/25 16:15 02/28/25 13:31 0.5 MG Albuterol 2.5 mg Q4HPRN PRN NEB 02/26/25 16:15 02/28/25 13:31 2.5 MG Diagnostic Test (Pha) 1 strip ACHS 02/26/25 22:00 02/28/25 17:10 1 STRIP Insulin Human Regular HS SC 02/26/25 22:00 02/27/25 21:57 3 UNITS Insulin Human Regular AC SC 02/27/25 07:00 02/28/25 12:02 6 UNITS Dextrose 50 ml UD PRN IV 02/26/25 17:15 Ceftazidime/ Dextrose 1 gm/ Sodium Chloride 50 ml @ 50 mls/hr DAILY IV 02/28/25 10:00 02/28/25 10:00 50 MLS/HR Doxycycline Hyclate 100 ml @ 50 mls/hr Q12H IV 02/28/25 11:00 02/28/25 09:55 50 MLS/HR Enteral Nutritional Formula 240 ml TIDWM PO 02/28/25 12:00 02/28/25 17:10 240 ML Lactulose 30 ml DAILYPRN PRN PO 03/01/25 10:00 objective Vitals and nursing notes reviewed. General Appearance: In no acute distress. HEENT: Atraumatic, PERRLA, Mucous membr. moist/pink Respiratory: Decreased air entry bilaterally. No wheezing. Bibasilar rhonchi. Cardiovascular: Regular rate, Normal S1, Normal S2 Abdominal: Normal bowel sounds, Soft, No tenderness Extremities: No clubbing, No cyanosis, No edema, Normal pulses, Other (right arm fistula) Skin: No rashes, No breakdown, No significant lesion Neuro: Alert, Oriented X3, Normal speech Psych/Mental Status: Mental status NL, Mood NL laboratory and microbiology Laboratory Tests 02/27/25 05:45 Test 02/27/25 05:45 Range/Units Serum Glucose 76 74-106 mg/dL Problem List Acute hypoxic respiratory failure Chest pain Elevated troponin ESRD on HD Assessment/Plan Agree with current supportive medical care. Pulmonary Medicine consulted. Continue RT support prn. Bronchodilators. IV antibiotics with Ceftriaxone and Vancomycin. MRSA screening negative. Vancomycin discontinued. Next HD 03/01. GI prophylaxis. Renal diet. Additional plan as per the hospital course. Plan discussed with: Patient, Other (RN) HARJINDER RUTHERFORD DO Feb 28, 2025 18:34
[2025-03-01] VITALS (15 sets, daily range): BP systolic 135–157; BP diastolic 64–82; PULSE 65–80; RESP 12–19; TEMP 97.1–98.4; O2SAT 91–100
[2025-03-01 11:23] LABS: Hematocrit 23.8 % (41.0-53.0); Hemoglobin 8.0 g/dL (13.5-17.5); Mean Corpuscular Hemoglobin 32.1 pg (28.0-32.0); Mean Corpuscular Volume 95.3 fL (80.0-100.0); Nucleated Red Blood Cells % 0.0 %
[2025-03-01] MEDS: NITROGLYCERIN 0.4 MG SL TAB SL PRN (11:31)
[2025-03-01 11:43] LABS: Albumin 3.8 g/dL (3.2-4.8); Alkaline Phosphatase 74 U/L (46-116); Anion Gap 14 (5-15); BUN/Creatinine Ratio 5.0 (10.0-20.0); Carbon Dioxide 28 mmol/L (20-31); Glucose 90 mg/dL (74-106); Magnesium 2.3 mg/dL (1.6-2.6); Potassium 3.5 mmol/L (3.5-5.1); Sodium 136 mmol/L (136-145); Total Protein 7.0 g/dL (5.7-8.2)
[2025-03-01 11:56] LABS: Alanine Aminotransferase < 9 U/L (7-40); Bilirubin, Total 0.2 mg/dL (0.2-1.0); Blood Urea Nitrogen 37 mg/dL (9-23); Calcium 8.7 mg/dL (8.7-10.4); Chloride 94 mmol/L (98-107)
--- NOTE | 2025-03-01 12:20 | DVH ---
CHEST RADIOGRAPH Indication: Chest pain Technique: Single frontal view of the chest was obtained COMPARISON: XY CHEST PORTABLE on DOS: 02/26/25, XY CHEST PORTABLE on DOS: 11/28/24, XY CHEST PORTABLE on DOS: 06/03/24, XY CHEST PORTABLE on DOS: 04/24/24, XY CHEST PORTABLE on DOS: 04/23/24 FINDINGS: Lines and Tubes: None Lungs: Congestion Pleura: No effusion. No pneumothorax. Cardiomediastinal contours: Cardiomegaly Bones: Unremarkable IMPRESSION: Increased interstital prominence. This may represent pulmonary vascular congestion and/or viral pneum onia. Clinical correlation advised.
--- NOTE | 2025-03-01 12:39 | DVHPN2 ---
Subjective Doing better today He is on 4 L nasal cannula He refused dialysis yesterday Changes from previous H/P or p: Changes Eyes: No Pain, No Vision change, No Conjunctivae inflammation, No Eyelid inflammation, No Other, No Redness ENT: No Ear pain, No Ear discharge, No Nose pain, No Nose discharge, No Nose congestion, No Mouth pain, No Mouth swelling, No Throat pain, No Throat swelling, No Other Cardiovascular: Chest Pain; No Palpitations, No Orthopnea, No Paroxysmal Noc. Dyspnea, No Edema, No Lt Headedness, No Other Respiratory: No Cough, No Dry; Shortness of breath, SOB with excertion; No Wheezing, No Hemoptysis, No Pleuritic Pain, No Sputum, No Other Gastrointestinal: No Nausea, No Vomiting, No Abdominal Pain, No Diarrhea, No Constipation, No Melena, No Hematochezia, No Other Genitourinary: No Dysuria, No Frequency, No Incontinence, No Hematuria, No Retention, No Other Musculoskeletal: No other, No neck pain, No shoulder pain, No arm pain, No back pain, No hand pain, No leg pain, No foot pain Skin: No Rash, No Lesions, No Jaundice, No Bruising, No Other Objective Vitals Vital Signs Date Time Temp Pulse Resp B/P (MAP) Pulse Ox O2 Delivery O2 Flow Rate FiO2 03/01/25 11:39 144/77 03/01/25 09:00 98.4 70 18 100 98.4 03/01/25 08:05 Nasal Cannula* 6 44 Intake/Output Intake and Output 03/01/25 07:00 Intake Total 1250 ml Balance 1250 ml Intake Oral 1000 ml IV Total 250 ml # Voids 1 # Bowel Movements 6 General Appearance: Alert, Oriented X3 Lungs: Clear to auscultation, Normal air movement Cardiovascular: Regular rate, Normal S1, Normal S2 Abdomen: Normal bowel sounds, Soft, No tenderness Extremities: No edema Medications Current Medications Medications Dose Ordered Sig/Nereyda Route Start Time Stop Time Status Last Admin Dose Admin Sodium Chloride 10 ml Q8HR IV 02/26/25 22:00 03/01/25 06:51 10 ML Ondansetron HCl 4 mg Q4HP PRN IV 02/26/25 15:30 Docusate Sodium 100 mg BIDPRN PRN PO 02/26/25 15:30 02/27/25 17:40 100 MG Acetaminophen 650 mg Q6HP PRN PO 02/26/25 15:30 03/01/25 01:43 650 MG Morphine Sulfate 2 mg Q4HPRN PRN IV 02/26/25 15:30 Hold Nitroglycerin 0.4 mg Q5MINP PRN SL 02/26/25 15:30 03/01/25 11:39 0.4 MG Morphine Sulfate 2 mg Q30M PRN IV 02/26/25 15:30 Bupropion HCl 150 mg DAILY PO 02/27/25 10:00 03/01/25 10:22 150 MG Clonidine HCl 0.1 mg Q8HPRN PRN PO 02/26/25 15:30 Duloxetine HCl 30 mg DAILY PO 02/27/25 10:00 03/01/25 10:20 30 MG Acetaminophen/ Hydrocodone Bitart 1 tab BID PRN PO 02/26/25 15:30 02/27/25 17:31 1 TAB Meclizine HCl 25 mg BIDP PRN PO 02/26/25 15:30 02/27/25 17:36 25 MG Minoxidil 2.5 mg BID PO 02/26/25 22:00 03/01/25 10:20 2.5 MG Nifedipine 30 mg BID PO 02/26/25 22:00 03/01/25 10:22 30 MG Pantoprazole Sodium 40 mg DAILY PO 02/27/25 10:00 03/01/25 10:22 40 MG Trazodone HCl 50 mg HS PO 02/26/25 22:00 02/28/25 22:47 50 MG Aspirin 81 mg DAILY PO 02/27/25 10:00 03/01/25 10:19 81 MG Atorvastatin Calcium 80 mg HS PO 02/26/25 22:00 02/28/25 22:47 80 MG Patient Own Medication 1 tab BID PO 02/26/25 22:00 Hold Donepezil HCl 5 mg DAILY PO 02/27/25 10:00 03/01/25 10:19 5 MG Ipratropium [place] 0.5 mg Q4HPRN PRN NEB 02/26/25 16:15 03/01/25 07:28 0.5 MG Albuterol 2.5 mg Q4HPRN PRN NEB 02/26/25 16:15 03/01/25 07:28 2.5 MG Diagnostic Test (Pha) 1 strip ACHS 02/26/25 22:00 03/01/25 11:43 1 STRIP Insulin Human Regular HS SC 02/26/25 22:00 03/01/25 00:05 3 UNITS Insulin Human Regular AC SC 02/27/25 07:00 02/28/25 12:02 6 UNITS Dextrose 50 ml UD PRN IV 02/26/25 17:15 Ceftazidime/ Dextrose 1 gm/ Sodium Chloride 50 ml @ 50 mls/hr DAILY IV 02/28/25 10:00 03/01/25 10:19 50 MLS/HR Doxycycline Hyclate 100 ml @ 50 mls/hr Q12H IV 02/28/25 11:00 03/01/25 00:00 50 MLS/HR Enteral Nutritional Formula 240 ml TIDWM PO 02/28/25 12:00 03/01/25 08:03 240 ML Lactulose 30 ml DAILYPRN PRN PO 03/01/25 10:00 Laboratory Results Laboratory Tests 03/01/25 10:49 Chemistry Test 03/01/25 10:49 Albumin 3.8 g/dL (3.2-4.8) Calcium Level 8.7 mg/dL (8.7-10.4) Magnesium Level 2.3 mg/dL (1.6-2.6) Total Protein 7.0 g/dL (5.7-8.2) LFT Test 03/01/25 10:49 Alanine Aminotransferase (ALT) < 9 U/L (7-40) Alkaline Phosphatase 74 U/L (46-116) Aspartate Amino Transferase (AST) 16 U/L (13-40) Total Bilirubin 0.2 mg/dL (0.2-1.0) Blood Gas Results Test 02/28/25 13:41 Arterial Blood pH 7.466 (7.350-7.450) FiO2 % 55.0 Microbiology Microbiology Date/Time Source Procedure Growth Status 02/27/25 06:33 Nose MRSA Screen - Final Complete Assessment/Plan Assessment/Plan Acute hypoxic respiratory failure, resolved Chronic respiratory failure on home O2 ESRD COPD DM2 HTN Mixed hyperlipidemia Elevated troponin NSTEMI type 2 PLAN: HD today O2 prn Resume home meds Discharge after dialysis 02/28/2025: The patient is still becoming hypoxic and he had another episode last night Acute hypoxic respiratory failure could be due to pneumonia versus fluid overload End-stage renal disease on hemodialysis Start broad-spectrum antibiotics for possible underlying pneumonia Oxygen as needed Med neb treatments Physical therapy Out of bed Pulmonary consult Sputum culture Discussed with the ex- and caregiver at the bedside Monitor closely 03/01/2025: Chest pain with NSTEMI type 2: Troponin is 98, no acute changes on EKG: Continue current management End-stage renal disease: Hemodialysis per Nephrology Continue IV antibiotics Oxygen as needed Physical therapy Monitor closely Plan discussed with: Patient, Spouse My Orders Orders - PETER LAMAR MD Procedure Category Date Status Time Chest Portable XY 03/01/25 Resulted 11:31 Troponin-I Hs LAB 03/01/25 In Process 12:31 Troponin-I Hs LAB 03/01/25 Logged 14:31 Electrocardigram EKG 03/01/25 Logged 11:31 Date of Service: Mar 01, 2025 Billing Provider: PETER LAMAR MD Common Visit Codes: NOT BILLABLE PETER LAMAR MD Mar 01, 2025 12:39
--- NOTE | 2025-03-01 20:30 | DVHPN2 ---
Subjective DOS: 03/01/2025 Patient seen and examined at bedside. Remains on supplemental oxygen Overnight events reviewed. Changes from previous H/P or p: No Changes Eyes: No Pain, No Vision change, No Conjunctivae inflammation, No Eyelid inflammation, No Other, No Redness ENT: No Ear pain, No Ear discharge, No Nose pain, No Nose discharge, No Nose congestion, No Mouth pain, No Mouth swelling, No Throat pain, No Throat swelling, No Other Cardiovascular: Chest Pain; No Palpitations, No Orthopnea, No Paroxysmal Noc. Dyspnea, No Edema, No Lt Headedness, No Other Respiratory: No Cough, No Dry; Shortness of breath, SOB with excertion; No Wheezing, No Hemoptysis, No Pleuritic Pain, No Sputum, No Other Gastrointestinal: No Nausea, No Vomiting, No Abdominal Pain, No Diarrhea, No Constipation, No Melena, No Hematochezia, No Other Genitourinary: No Dysuria, No Frequency, No Incontinence, No Hematuria, No Retention, No Other Musculoskeletal: No other, No neck pain, No shoulder pain, No arm pain, No back pain, No hand pain, No leg pain, No foot pain Skin: No Rash, No Lesions, No Jaundice, No Bruising, No Other Objective Vitals Vital Signs Date Time Temp Pulse Resp B/P (MAP) Pulse Ox O2 Delivery O2 Flow Rate FiO2 03/01/25 16:42 97.3 73 18 144/66 (92) 96 97.3 03/01/25 16:00 4.0 36 03/01/25 14:55 Nasal Cannula* Hi-Flow NC Intake/Output Intake and Output 03/01/25 07:00 Intake Total 1250 ml Balance 1250 ml Intake Oral 1000 ml IV Total 250 ml # Voids 1 # Bowel Movements 6 Exam Gen.: Patient lying in bed in no apparent distress. On supplemental oxygen. Head: Normocephalic, atraumatic. Eyes: EOMI/PERRLA. Ears: Normal hearing. Normal anatomy. Neck/trachea: Trachea midline, supple. Nose: Normal external anatomy. Mouth: Moist mucous membranes. Chest: Decreased air entry bilaterally. No wheezing or rhonchi. Cardiovascular: Positive S1, positive S2. Regular rate and rhythm. Abdomen: Positive bowel sounds in all 4 quadrants. Soft, non-tender, non- distended. : Deferred. Rectal: Deferred. Skin: Warm, dry. Intact. Extremities: 2+ radial pulses bilaterally. No lower extremity edema. Neuro: Awake, alert, oriented x3. No gross motor or sensory deficits. Cranial nerves II through XII intact. Gait not assessed. General Appearance: Alert, Oriented X3 Lungs: Clear to auscultation, Normal air movement Cardiovascular: Regular rate, Normal S1, Normal S2 Abdomen: Normal bowel sounds, Soft, No tenderness Extremities: No edema Medications Current Medications Medications Dose Ordered Sig/Nereyda Route Start Time Stop Time Status Last Admin Dose Admin Sodium Chloride 10 ml Q8HR IV 02/26/25 22:00 03/01/25 13:56 10 ML Ondansetron HCl 4 mg Q4HP PRN IV 02/26/25 15:30 Docusate Sodium 100 mg BIDPRN PRN PO 02/26/25 15:30 02/27/25 17:40 100 MG Acetaminophen 650 mg Q6HP PRN PO 02/26/25 15:30 03/01/25 01:43 650 MG Morphine Sulfate 2 mg Q4HPRN PRN IV 02/26/25 15:30 Hold Nitroglycerin 0.4 mg Q5MINP PRN SL 02/26/25 15:30 03/01/25 11:39 0.4 MG Morphine Sulfate 2 mg Q30M PRN IV 02/26/25 15:30 Bupropion HCl 150 mg DAILY PO 02/27/25 10:00 03/01/25 10:22 150 MG Clonidine HCl 0.1 mg Q8HPRN PRN PO 02/26/25 15:30 Duloxetine HCl 30 mg DAILY PO 02/27/25 10:00 03/01/25 10:20 30 MG Acetaminophen/ Hydrocodone Bitart 1 tab BID PRN PO 02/26/25 15:30 03/01/25 15:15 1 TAB Meclizine HCl 25 mg BIDP PRN PO 02/26/25 15:30 02/27/25 17:36 25 MG Minoxidil 2.5 mg BID PO 02/26/25 22:00 03/01/25 10:20 2.5 MG Nifedipine 30 mg BID PO 02/26/25 22:00 03/01/25 10:22 30 MG Pantoprazole Sodium 40 mg DAILY PO 02/27/25 10:00 03/01/25 10:22 40 MG Trazodone HCl 50 mg HS PO 02/26/25 22:00 02/28/25 22:47 50 MG Aspirin 81 mg DAILY PO 02/27/25 10:00 03/01/25 10:19 81 MG Atorvastatin Calcium 80 mg HS PO 02/26/25 22:00 02/28/25 22:47 80 MG Patient Own Medication 1 tab BID PO 02/26/25 22:00 Hold Donepezil HCl 5 mg DAILY PO 02/27/25 10:00 03/01/25 10:19 5 MG Ipratropium [place] 0.5 mg Q4HPRN PRN NEB 02/26/25 16:15 03/01/25 14:55 0.5 MG Albuterol 2.5 mg Q4HPRN PRN NEB 02/26/25 16:15 03/01/25 14:55 2.5 MG Diagnostic Test (Pha) 1 strip ACHS 02/26/25 22:00 03/01/25 16:49 1 STRIP Insulin Human Regular HS SC 02/26/25 22:00 03/01/25 00:05 3 UNITS Insulin Human Regular AC SC 02/27/25 07:00 03/01/25 17:03 3 UNITS Dextrose 50 ml UD PRN IV 02/26/25 17:15 Ceftazidime/ Dextrose 1 gm/ Sodium Chloride 50 ml @ 50 mls/hr DAILY IV 02/28/25 10:00 03/01/25 10:19 50 MLS/HR Doxycycline Hyclate 100 ml @ 50 mls/hr Q12H IV 02/28/25 11:00 03/01/25 13:56 50 MLS/HR Enteral Nutritional Formula 240 ml TIDWM PO 02/28/25 12:00 03/01/25 16:49 240 ML Lactulose 30 ml DAILYPRN PRN PO 03/01/25 10:00 Laboratory Results Laboratory Tests 03/01/25 10:49 Chemistry Test 03/01/25 10:49 Albumin 3.8 g/dL (3.2-4.8) Calcium Level 8.7 mg/dL (8.7-10.4) Magnesium Level 2.3 mg/dL (1.6-2.6) Total Protein 7.0 g/dL (5.7-8.2) LFT Test 03/01/25 10:49 Alanine Aminotransferase (ALT) < 9 U/L (7-40) Alkaline Phosphatase 74 U/L (46-116) Aspartate Amino Transferase (AST) 16 U/L (13-40) Total Bilirubin 0.2 mg/dL (0.2-1.0) Microbiology Microbiology Date/Time Source Procedure Growth Status 02/28/25 10:03 Sputum Gram Stain - Final Resulted 02/28/25 10:03 Sputum Respiratory Culture - Preliminary Resulted 02/27/25 06:33 Nose MRSA Screen - Final Complete Assessment/Plan Assessment/Plan Impression: Acute on chronic hypoxic respiratory failure Elevated troponin Pulmonary edema Pulmonary vascular congestion End-stage renal disease on hemodialysis Can not rule out underlying pneumonia Events: Remains on supplemental oxygen, 4 LPM NC Taper O2 as tolerated Social work consult for 10 LPM concentrator Chest x-ray demonstrates increased interstitial prominence. This may represent pulmonary vascular congestion and/or viral pneumonia. Obtain ABG on room air Complete antibiotic course Continue bronchodilators Incentive spirometry Blood pressure control. Accu-Cheks, ISS. Protonix for GI prophylaxis Hemodialysis per Nephrology Monitor renal function. Monitor electrolytes. Supplement as necessary. Monitor ins and outs. Labs and imaging reviewed. Rest of plan as noted below. Plan: Supplemental oxygen Titrate to keep O2 saturation above 92%. Complete antibiotic course. Sputum cultures grew moderate yeast, few GPC and few gram positive rods. MRSA negative Bronchodilators Monitor renal function Hemodialysis per nephrology Monitor electrolytes Supplement as necessary. Monitor ins and outs Arrange for stationary concentrator at home that goes up to 10 L/min Social work Services consultation placed GI prophylaxis-Protonix Prognosis: Poor given multiple comorbidities. Rest of plan per hospitalist and other consultants. Thank you Dr. Stinson for allowing me to participate in this patient's care. Further recommendations will depend on patient's clinical course. Please do not hesitate to contact me if you have any questions or concerns. This medical document was created using an electronic medical record system with [employer] system. Although this document has been carefully reviewed, there may still be some phonetic and typographical errors. These areas are purely typographical due to imperfections of the software programs, and do not reflect any compromise in the patient's medical care. Plan discussed with: Patient, Other (HANS Joaquin) My Orders Orders - JUAN SALDAÑA MD Procedure Category Date Status Time Abg W/ Co-Ox RT 03/01/25 Logged 19:30 Visit Coding Pulmonary Billing Provider: JUAN SALDAÑA MD Date of Service if different f: Mar 01, 2025 Common Visit Codes: [id number] INP/OBS CARE(HIGH) JUAN SALDAÑA MD Mar 01, 2025 20:30
[2025-03-01] MEDS: EPOETIN ALFA-EPBX 10,000 UNIT/1ML VIAL SC ONE (22:20)
--- NOTE | 2025-03-01 23:07 | DVHPN2 ---
Progress Note - Dictate Date Seen: Mar 01, 2025 Has the PT tested + for MRSA If YES, has PT been informed?: No Medical Necessity Reason Pt with a Central, PICC or Fol: No Subjective Patient was seen and evaluated in follow up. Chart/events reviewed. Patient endorses continued shortness of breath. Currently stable on 4L NC. Refused to have dialysis yesterday. vital signs Vital Sign Date Time Temp Pulse Resp B/P (MAP) Pulse Ox O2 Delivery O2 Flow Rate FiO2 03/01/25 22:34 72 16 100 03/01/25 22:28 Nasal Cannula 4.0 03/01/25 22:28 36 03/01/25 22:22 155/82 03/01/25 21:00 98.0 98.0 Total Intake and Output 02/28/25 02/28/25 03/01/25 15:00 23:00 07:00 Intake Total 150 ml 600 ml 500 ml Balance 150 ml 600 ml 500 ml medications Current Medications Medications Dose Ordered Sig/Nereyda Route Start Time Stop Time Status Last Admin Dose Admin Sodium Chloride 10 ml Q8HR IV 02/26/25 22:00 03/01/25 22:20 10 ML Ondansetron HCl 4 mg Q4HP PRN IV 02/26/25 15:30 Docusate Sodium 100 mg BIDPRN PRN PO 02/26/25 15:30 02/27/25 17:40 100 MG Acetaminophen 650 mg Q6HP PRN PO 02/26/25 15:30 03/01/25 01:43 650 MG Morphine Sulfate 2 mg Q4HPRN PRN IV 02/26/25 15:30 Hold Nitroglycerin 0.4 mg Q5MINP PRN SL 02/26/25 15:30 03/01/25 11:39 0.4 MG Morphine Sulfate 2 mg Q30M PRN IV 02/26/25 15:30 Bupropion HCl 150 mg DAILY PO 02/27/25 10:00 03/01/25 10:22 150 MG Clonidine HCl 0.1 mg Q8HPRN PRN PO 02/26/25 15:30 Duloxetine HCl 30 mg DAILY PO 02/27/25 10:00 03/01/25 10:20 30 MG Acetaminophen/ Hydrocodone Bitart 1 tab BID PRN PO 02/26/25 15:30 03/01/25 15:15 1 TAB Meclizine HCl 25 mg BIDP PRN PO 02/26/25 15:30 02/27/25 17:36 25 MG Minoxidil 2.5 mg BID PO 02/26/25 22:00 03/01/25 22:22 2.5 MG Nifedipine 30 mg BID PO 02/26/25 22:00 03/01/25 22:22 30 MG Pantoprazole Sodium 40 mg DAILY PO 02/27/25 10:00 03/01/25 10:22 40 MG Trazodone HCl 50 mg HS PO 02/26/25 22:00 03/01/25 22:21 50 MG Aspirin 81 mg DAILY PO 02/27/25 10:00 03/01/25 10:19 81 MG Atorvastatin Calcium 80 mg HS PO 02/26/25 22:00 03/01/25 22:23 80 MG Patient Own Medication 1 tab BID PO 02/26/25 22:00 Hold Donepezil HCl 5 mg DAILY PO 02/27/25 10:00 03/01/25 10:19 5 MG Ipratropium [place] 0.5 mg Q4HPRN PRN NEB 02/26/25 16:15 03/01/25 22:28 0.5 MG Albuterol 2.5 mg Q4HPRN PRN NEB 02/26/25 16:15 03/01/25 22:28 2.5 MG Diagnostic Test (Pha) 1 strip ACHS 02/26/25 22:00 03/01/25 22:00 1 STRIP Insulin Human Regular HS SC 02/26/25 22:00 03/01/25 00:05 3 UNITS Insulin Human Regular AC SC 02/27/25 07:00 03/01/25 17:03 3 UNITS Dextrose 50 ml UD PRN IV 02/26/25 17:15 Ceftazidime/ Dextrose 1 gm/ Sodium Chloride 50 ml @ 50 mls/hr DAILY IV 02/28/25 10:00 03/01/25 10:19 50 MLS/HR Doxycycline Hyclate 100 ml @ 50 mls/hr Q12H IV 02/28/25 11:00 03/01/25 13:56 50 MLS/HR Enteral Nutritional Formula 240 ml TIDWM PO 02/28/25 12:00 03/01/25 16:49 240 ML Lactulose 30 ml DAILYPRN PRN PO 03/01/25 10:00 objective Vitals and nursing notes reviewed. General Appearance: In no acute distress. HEENT: Atraumatic, PERRLA, Mucous membr. moist/pink Respiratory: Decreased air entry bilaterally. No wheezing. Bibasilar rhonchi. Cardiovascular: Regular rate, Normal S1, Normal S2 Abdominal: Normal bowel sounds, Soft, No tenderness Extremities: No clubbing, No cyanosis, No edema, Normal pulses, Other (right arm fistula) Skin: No rashes, No breakdown, No significant lesion Neuro: Alert, Oriented X3, Normal speech Psych/Mental Status: Mental status NL, Mood NL laboratory and microbiology Laboratory Tests 03/01/25 10:49 Test 03/01/25 10:49 Range/Units Serum Glucose 90 74-106 mg/dL Problem List Acute hypoxic respiratory failure Chest pain Elevated troponin ESRD on HD Assessment/Plan Agree with current supportive medical care. Patient refused dialysis yesterday. Scheduled for today. Pulmonary Medicine following. Continue RT support prn. Bronchodilators. IV antibiotics with Ceftriaxone and Doxycycline. GI prophylaxis. Renal diet. Additional plan as per the hospital course. Plan discussed with: Patient, Other (RN) HARJINDER RUTHERFORD DO Mar 01, 2025 23:07
[2025-03-02] VITALS (13 sets, daily range): BP systolic 75–164; BP diastolic 68–76; PULSE 47–72; RESP 16–19; TEMP 97–98.7; O2SAT 22–99
[2025-03-02 06:46] LABS: Hematocrit 25.1 % (41.0-53.0); Hemoglobin 8.6 g/dL (13.5-17.5); Mean Corpuscular Hemoglobin 32.8 pg (28.0-32.0); Mean Corpuscular Volume 95.9 fL (80.0-100.0); Nucleated Red Blood Cells % 0.2 %
--- NOTE | 2025-03-02 07:16 | ECG ---
[facility] Test Date: 2025-03-01 Test Time: 11:19:15 Pat Name: LIZBETH LU Department: Room: [facility]5T B Gender: M Crystalizer: ann : 1945 Requested By: PETER LAMAR Order Number: [id number] Reading MD: Noah Alan Measurements Intervals [place] Rate: 74 P: 32 UT: 217 QRS: -68 QRSD: 170 T: 27 QT: 462 QTc: 513 Interpretive Statements Sinus rhythm Borderline prolonged UT interval RBBB and LAFB Electronically Signed On 03-03-2025 19:47:59 PDT by Noah Alan Please click the below link to view image of tracing.
[2025-03-02 07:23] LABS: Albumin 4.0 g/dL (3.2-4.8); Alkaline Phosphatase 80 U/L (46-116); Anion Gap 12 (5-15); BUN/Creatinine Ratio 3.3 (10.0-20.0); Blood Urea Nitrogen 15 mg/dL (9-23); Calcium 9.1 mg/dL (8.7-10.4); Carbon Dioxide 31 mmol/L (20-31); Glucose 92 mg/dL (74-106); Magnesium 2.2 mg/dL (1.6-2.6); Potassium 3.7 mmol/L (3.5-5.1); Sodium 140 mmol/L (136-145); Total Protein 7.5 g/dL (5.7-8.2)
[2025-03-02 07:24] LABS: Bilirubin, Total 0.3 mg/dL (0.2-1.0); Chloride 97 mmol/L (98-107)
[2025-03-02 07:25] LABS: Alanine Aminotransferase < 9 U/L (7-40)
[2025-03-02 11:36] LABS: Hepatitis B Surface Antigen Negative (Negative)
[2025-03-02 12:04] LABS: Hepatitis C Antibody Positive (Negative)
[2025-03-02 16:04] LABS: Base Excess 7.9 mmol/L (-2.0-3.0)
--- NOTE | 2025-03-02 22:01 | DVHPN2 ---
Subjective The patient is seen and examined at bedside. The patient is still had shortness for breath. The patient had refused ABG today. The patient saturation oxygen dropped because he is a mouth breather. Saturation oxygen dropped to the 80s. Reviewed: Care Plan, H&P, Labs, Medications, Previous Orders, Radiology Changes from previous H/P or p: No Changes Eyes: No Pain, No Vision change, No Conjunctivae inflammation, No Eyelid inflammation, No Other, No Redness ENT: No Ear pain, No Ear discharge, No Nose pain, No Nose discharge, No Nose congestion, No Mouth pain, No Mouth swelling, No Throat pain, No Throat swelling, No Other Cardiovascular: Chest Pain; No Palpitations, No Orthopnea, No Paroxysmal Noc. Dyspnea, No Edema, No Lt Headedness, No Other Respiratory: No Cough, No Dry; Shortness of breath, SOB with excertion; No Wheezing, No Hemoptysis, No Pleuritic Pain, No Sputum, No Other Gastrointestinal: No Nausea, No Vomiting, No Abdominal Pain, No Diarrhea, No Constipation, No Melena, No Hematochezia, No Other Genitourinary: No Dysuria, No Frequency, No Incontinence, No Hematuria, No Retention, No Other Musculoskeletal: No other, No neck pain, No shoulder pain, No arm pain, No back pain, No hand pain, No leg pain, No foot pain Skin: No Rash, No Lesions, No Jaundice, No Bruising, No Other Objective Vitals Vital Signs Date Time Temp Pulse Resp B/P (MAP) Pulse Ox O2 Delivery O2 Flow Rate FiO2 03/02/25 21:47 144/76 03/02/25 18:33 70 16 99 03/02/25 18:23 Nasal Cannula 6.0 03/02/25 18:23 N/A 03/02/25 17:00 98.6 98.6 Intake/Output Intake and Output 03/02/25 07:00 Intake Total 752 ml Balance 752 ml Intake Oral 502 ml IV Total 250 ml General Appearance: Alert, Oriented X3 HEENT: Atraumatic, PERRLA, EOMI, Mucous membr. moist/pink Lungs: Clear to auscultation, Normal air movement Cardiovascular: Regular rate, Normal S1, Normal S2, No murmurs, Gallops, Rubs Abdomen: Normal bowel sounds, Soft, No tenderness Extremities: No edema Neuro: Cranial nerves 3-12 NL Psych/Mental Status: Mental status NL Medications Current Medications Medications Dose Ordered Sig/Nereyda Route Start Time Stop Time Status Last Admin Dose Admin Sodium Chloride 10 ml Q8HR IV 02/26/25 22:00 03/02/25 21:32 10 ML Ondansetron HCl 4 mg Q4HP PRN IV 02/26/25 15:30 Docusate Sodium 100 mg BIDPRN PRN PO 02/26/25 15:30 02/27/25 17:40 100 MG Acetaminophen 650 mg Q6HP PRN PO 02/26/25 15:30 03/01/25 23:57 650 MG Morphine Sulfate 2 mg Q4HPRN PRN IV 02/26/25 15:30 Hold Nitroglycerin 0.4 mg Q5MINP PRN SL 02/26/25 15:30 03/01/25 11:39 0.4 MG Morphine Sulfate 2 mg Q30M PRN IV 02/26/25 15:30 Bupropion HCl 150 mg DAILY PO 02/27/25 10:00 03/02/25 10:40 150 MG Clonidine HCl 0.1 mg Q8HPRN PRN PO 02/26/25 15:30 Duloxetine HCl 30 mg DAILY PO 02/27/25 10:00 03/02/25 10:40 30 MG Acetaminophen/ Hydrocodone Bitart 1 tab BID PRN PO 02/26/25 15:30 03/02/25 10:41 1 TAB Meclizine HCl 25 mg BIDP PRN PO 02/26/25 15:30 02/27/25 17:36 25 MG Minoxidil 2.5 mg BID PO 02/26/25 22:00 03/02/25 21:47 2.5 MG Nifedipine 30 mg BID PO 02/26/25 22:00 03/02/25 21:33 30 MG Pantoprazole Sodium 40 mg DAILY PO 02/27/25 10:00 03/02/25 10:39 40 MG Trazodone HCl 50 mg HS PO 02/26/25 22:00 03/02/25 21:33 50 MG Aspirin 81 mg DAILY PO 02/27/25 10:00 03/02/25 10:40 81 MG Atorvastatin Calcium 80 mg HS PO 02/26/25 22:00 03/02/25 21:32 80 MG Patient Own Medication 1 tab BID PO 02/26/25 22:00 Hold Donepezil HCl 5 mg DAILY PO 02/27/25 10:00 03/02/25 10:39 5 MG Ipratropium [place] 0.5 mg Q4HPRN PRN NEB 02/26/25 16:15 03/02/25 18:23 0.5 MG Albuterol 2.5 mg Q4HPRN PRN NEB 02/26/25 16:15 03/02/25 18:23 2.5 MG Diagnostic Test (Pha) 1 strip ACHS 02/26/25 22:00 03/02/25 21:34 1 STRIP Insulin Human Regular HS SC 02/26/25 22:00 03/02/25 21:37 2 UNITS Insulin Human Regular AC SC 02/27/25 07:00 03/02/25 17:00 2 UNITS Dextrose 50 ml UD PRN IV 02/26/25 17:15 Ceftazidime/ Dextrose 1 gm/ Sodium Chloride 50 ml @ 50 mls/hr DAILY IV 02/28/25 10:00 03/02/25 10:39 50 MLS/HR Doxycycline Hyclate 100 ml @ 50 mls/hr Q12H IV 02/28/25 11:00 03/02/25 14:37 50 MLS/HR Enteral Nutritional Formula 240 ml TIDWM PO 02/28/25 12:00 03/02/25 17:52 240 ML Lactulose 30 ml DAILYPRN PRN PO 03/01/25 10:00 Laboratory Results Laboratory Tests 03/02/25 06:18 Chemistry Test 03/02/25 06:18 Albumin 4.0 g/dL (3.2-4.8) Calcium Level 9.1 mg/dL (8.7-10.4) Magnesium Level 2.2 mg/dL (1.6-2.6) Total Protein 7.5 g/dL (5.7-8.2) LFT Test 03/02/25 06:18 Alanine Aminotransferase (ALT) < 9 U/L (7-40) Alkaline Phosphatase 80 U/L (46-116) Aspartate Amino Transferase (AST) 16 U/L (13-40) Total Bilirubin 0.3 mg/dL (0.2-1.0) Blood Gas Results Test 03/02/25 15:32 Arterial Blood pH 7.515 (7.350-7.450) FiO2 % 21.0 Microbiology Microbiology Date/Time Source Procedure Growth Status 02/28/25 10:03 Sputum Gram Stain - Final Complete 02/28/25 10:03 Respiratory Culture - Final Enterobacter cloacae Complete 02/27/25 06:33 Nose MRSA Screen - Final Complete Labs and/or images reviewed: Labs reviewed by me Assessment/Plan Assessment/Plan Acute hypoxic respiratory failure, resolved Chronic respiratory failure on home O2 ESRD COPD DM2 HTN Mixed hyperlipidemia Elevated troponin PLAN: Continue current management. Continue with Oxygen Will redraw RICK DW patient, he agree to have it. Continue HD per schedule Continue IV antibiotic. Waiting for adjudication specialist Waiting for sputum culture. This medical document was created using an electronic medical record system with [employer] direct computerized dictation system. Although this document has been carefully reviewed, there may still be some phonetic and typographical errors. These areas are purely typographical due to imperfections of the software programs, and do not reflect any compromise in the patient's medical care. Plan discussed with: Patient My Orders Orders - GERMAINE ULLOA MD Procedure Category Date Status Time Abg W/ Co-Ox RT 03/02/25 Logged 13:41 Date of Service: Mar 02, 2025 Billing Provider: GERMAINE ULLOA MD Common Visit Codes: [id number] INP/OBS CARE(HIGH) GERMAINE ULLOA MD Mar 02, 2025 22:01
--- NOTE | 2025-03-02 22:28 | DVHPN2 ---
Progress Note - Dictate Date Seen: Mar 02, 2025 Has the PT tested + for MRSA If YES, has PT been informed?: No Medical Necessity Reason Pt with a Central, PICC or Fol: No Subjective Patient was seen and evaluated in follow up. No acute events overnight. Patient still has shortness for breath. Refused to have ABG today. Noted to have saturation oxygen dropped to the 80s. Received dialysis yesterday. vital signs Vital Sign Date Time Temp Pulse Resp B/P (MAP) Pulse Ox O2 Delivery O2 Flow Rate FiO2 03/02/25 21:47 144/76 03/02/25 20:00 72 Nasal Cannula* 3 32 03/02/25 18:33 16 99 03/02/25 17:00 98.6 98.6 Total Intake and Output 03/01/25 03/01/25 03/02/25 15:00 23:00 07:00 Intake Total 50 ml 600 ml 102 ml Balance 50 ml 600 ml 102 ml medications Current Medications Medications Dose Ordered Sig/Nereyda Route Start Time Stop Time Status Last Admin Dose Admin Sodium Chloride 10 ml Q8HR IV 02/26/25 22:00 03/02/25 21:32 10 ML Ondansetron HCl 4 mg Q4HP PRN IV 02/26/25 15:30 Docusate Sodium 100 mg BIDPRN PRN PO 02/26/25 15:30 02/27/25 17:40 100 MG Acetaminophen 650 mg Q6HP PRN PO 02/26/25 15:30 03/01/25 23:57 650 MG Morphine Sulfate 2 mg Q4HPRN PRN IV 02/26/25 15:30 Hold Nitroglycerin 0.4 mg Q5MINP PRN SL 02/26/25 15:30 03/01/25 11:39 0.4 MG Morphine Sulfate 2 mg Q30M PRN IV 02/26/25 15:30 Bupropion HCl 150 mg DAILY PO 02/27/25 10:00 03/02/25 10:40 150 MG Clonidine HCl 0.1 mg Q8HPRN PRN PO 02/26/25 15:30 Duloxetine HCl 30 mg DAILY PO 02/27/25 10:00 03/02/25 10:40 30 MG Acetaminophen/ Hydrocodone Bitart 1 tab BID PRN PO 02/26/25 15:30 03/02/25 10:41 1 TAB Meclizine HCl 25 mg BIDP PRN PO 02/26/25 15:30 02/27/25 17:36 25 MG Minoxidil 2.5 mg BID PO 02/26/25 22:00 03/02/25 21:47 2.5 MG Nifedipine 30 mg BID PO 02/26/25 22:00 03/02/25 21:33 30 MG Pantoprazole Sodium 40 mg DAILY PO 02/27/25 10:00 03/02/25 10:39 40 MG Trazodone HCl 50 mg HS PO 02/26/25 22:00 03/02/25 21:33 50 MG Aspirin 81 mg DAILY PO 02/27/25 10:00 03/02/25 10:40 81 MG Atorvastatin Calcium 80 mg HS PO 02/26/25 22:00 03/02/25 21:32 80 MG Patient Own Medication 1 tab BID PO 02/26/25 22:00 Hold Donepezil HCl 5 mg DAILY PO 02/27/25 10:00 03/02/25 10:39 5 MG Ipratropium [place] 0.5 mg Q4HPRN PRN NEB 02/26/25 16:15 03/02/25 18:23 0.5 MG Albuterol 2.5 mg Q4HPRN PRN NEB 02/26/25 16:15 03/02/25 18:23 2.5 MG Diagnostic Test (Pha) 1 strip ACHS 02/26/25 22:00 03/02/25 21:34 1 STRIP Insulin Human Regular HS SC 02/26/25 22:00 03/02/25 21:37 2 UNITS Insulin Human Regular AC SC 02/27/25 07:00 03/02/25 17:00 2 UNITS Dextrose 50 ml UD PRN IV 02/26/25 17:15 Ceftazidime/ Dextrose 1 gm/ Sodium Chloride 50 ml @ 50 mls/hr DAILY IV 02/28/25 10:00 03/02/25 10:39 50 MLS/HR Doxycycline Hyclate 100 ml @ 50 mls/hr Q12H IV 02/28/25 11:00 03/02/25 14:37 50 MLS/HR Enteral Nutritional Formula 240 ml TIDWM PO 02/28/25 12:00 03/02/25 17:52 240 ML Lactulose 30 ml DAILYPRN PRN PO 03/01/25 10:00 objective Vitals and nursing notes reviewed. General Appearance: In no acute distress. HEENT: Atraumatic, PERRLA, Mucous membr. moist/pink Respiratory: Decreased air entry bilaterally. No wheezing. Bibasilar rhonchi. Cardiovascular: Regular rate, Normal S1, Normal S2 Abdominal: Normal bowel sounds, Soft, No tenderness Extremities: No clubbing, No cyanosis, No edema, Normal pulses, Other (right arm fistula) Skin: No rashes, No breakdown, No significant lesion Neuro: Alert, Oriented X3, Normal speech Psych/Mental Status: Mental status NL, Mood NL laboratory and microbiology Laboratory Tests 03/02/25 06:18 Test 03/02/25 06:18 Range/Units Serum Glucose 92 74-106 mg/dL Problem List Acute hypoxic respiratory failure Chest pain Elevated troponin ESRD on HD Assessment/Plan Agree with current supportive medical care. Dialyzed yesterday. No HD today. Continue RT support prn. Bronchodilators. IV antibiotics with Ceftriaxone and Doxycycline. Home medications resumed. GI prophylaxis. Renal diet. Additional plan as per the hospital course. Dietary Evaluation Review Comments: Encourage and monitor PO intake to meet his needs Reinforce dietary sodium restrition Monitor cholesterol levels Expected Outcomes/Goals: No wt loss, fluid/electolyte in balance Plan discussed with: Patient, Other (RN) HARJINDER RUTHERFORD DO Mar 02, 2025 22:28
[2025-03-03] VITALS (11 sets, daily range): BP systolic 154–167; BP diastolic 69–86; PULSE 65–79; RESP 16–18; TEMP 97.5–98.7; O2SAT 88–97
[2025-03-03] MEDS: HYDROMORPHONE HCL 1 MG/ML INJ IV PRN (12:18)
--- NOTE | 2025-03-03 15:12 | DVHPN2 ---
Subjective The patient is seen and examined at bedside. Complains of chest pain. Reviewed: Care Plan, H&P, Labs, Medications, Previous Orders, Radiology Changes from previous H/P or p: No Changes Eyes: No Pain, No Vision change, No Conjunctivae inflammation, No Eyelid inflammation, No Other, No Redness ENT: No Ear pain, No Ear discharge, No Nose pain, No Nose discharge, No Nose congestion, No Mouth pain, No Mouth swelling, No Throat pain, No Throat swelling, No Other Cardiovascular: Chest Pain; No Palpitations, No Orthopnea, No Paroxysmal Noc. Dyspnea, No Edema, No Lt Headedness, No Other Respiratory: No Cough, No Dry; Shortness of breath, SOB with excertion; No Wheezing, No Hemoptysis, No Pleuritic Pain, No Sputum, No Other Gastrointestinal: No Nausea, No Vomiting, No Abdominal Pain, No Diarrhea, No Constipation, No Melena, No Hematochezia, No Other Genitourinary: No Dysuria, No Frequency, No Incontinence, No Hematuria, No Retention, No Other Musculoskeletal: No other, No neck pain, No shoulder pain, No arm pain, No back pain, No hand pain, No leg pain, No foot pain Skin: No Rash, No Lesions, No Jaundice, No Bruising, No Other Objective Vitals Vital Signs Date Time Temp Pulse Resp B/P (MAP) Pulse Ox O2 Delivery O2 Flow Rate FiO2 03/03/25 12:46 98.7 78 16 167/86 (113) 89 98.7 03/03/25 08:00 Nasal Cannula* 5 40 Intake/Output Intake and Output 03/03/25 07:00 Intake Total 1466 ml Output Total 200 ml Balance 1266 ml Intake Oral 1366 ml IV Total 100 ml Output Urine Total 200 ml # Voids 5 General Appearance: Alert, Oriented X3 HEENT: Atraumatic, PERRLA, EOMI, Mucous membr. moist/pink Lungs: Clear to auscultation, Normal air movement Cardiovascular: Regular rate, Normal S1, Normal S2, No murmurs, Gallops, Rubs Abdomen: Normal bowel sounds, Soft, No tenderness Extremities: No edema Neuro: Cranial nerves 3-12 NL Psych/Mental Status: Mental status NL Medications Current Medications Medications Dose Ordered Sig/Nereyda Route Start Time Stop Time Status Last Admin Dose Admin Sodium Chloride 10 ml Q8HR IV 02/26/25 22:00 03/03/25 14:16 10 ML Ondansetron HCl 4 mg Q4HP PRN IV 02/26/25 15:30 Docusate Sodium 100 mg BIDPRN PRN PO 02/26/25 15:30 02/27/25 17:40 100 MG Acetaminophen 650 mg Q6HP PRN PO 02/26/25 15:30 03/03/25 10:11 650 MG Morphine Sulfate 2 mg Q4HPRN PRN IV 02/26/25 15:30 Hold Nitroglycerin 0.4 mg Q5MINP PRN SL 02/26/25 15:30 03/03/25 10:31 0.4 MG Morphine Sulfate 2 mg Q30M PRN IV 02/26/25 15:30 Bupropion HCl 150 mg DAILY PO 02/27/25 10:00 03/03/25 10:10 150 MG Clonidine HCl 0.1 mg Q8HPRN PRN PO 02/26/25 15:30 Duloxetine HCl 30 mg DAILY PO 02/27/25 10:00 03/03/25 10:10 30 MG Acetaminophen/ Hydrocodone Bitart 1 tab BID PRN PO 02/26/25 15:30 03/02/25 10:41 1 TAB Meclizine HCl 25 mg BIDP PRN PO 02/26/25 15:30 02/27/25 17:36 25 MG Minoxidil 2.5 mg BID PO 02/26/25 22:00 03/03/25 10:10 2.5 MG Nifedipine 30 mg BID PO 02/26/25 22:00 03/03/25 10:10 30 MG Pantoprazole Sodium 40 mg DAILY PO 02/27/25 10:00 03/03/25 10:10 40 MG Trazodone HCl 50 mg HS PO 02/26/25 22:00 03/02/25 21:33 50 MG Aspirin 81 mg DAILY PO 02/27/25 10:00 03/03/25 10:11 81 MG Atorvastatin Calcium 80 mg HS PO 02/26/25 22:00 03/02/25 21:32 80 MG Patient Own Medication 1 tab BID PO 02/26/25 22:00 Hold Donepezil HCl 5 mg DAILY PO 02/27/25 10:00 03/03/25 10:11 5 MG Ipratropium [place] 0.5 mg Q4HPRN PRN NEB 02/26/25 16:15 03/02/25 18:23 0.5 MG Albuterol 2.5 mg Q4HPRN PRN NEB 02/26/25 16:15 03/02/25 18:23 2.5 MG Diagnostic Test (Pha) 1 strip ACHS 02/26/25 22:00 03/03/25 11:48 1 STRIP Insulin Human Regular HS SC 02/26/25 22:00 03/02/25 21:37 2 UNITS Insulin Human Regular AC SC 02/27/25 07:00 03/03/25 11:30 3 UNITS Dextrose 50 ml UD PRN IV 02/26/25 17:15 Ceftazidime/ Dextrose 1 gm/ Sodium Chloride 50 ml @ 50 mls/hr DAILY IV 02/28/25 10:00 03/03/25 10:09 50 MLS/HR Doxycycline Hyclate 100 ml @ 50 mls/hr Q12H IV 02/28/25 11:00 03/03/25 14:09 50 MLS/HR Enteral Nutritional Formula 240 ml TIDWM PO 02/28/25 12:00 03/03/25 12:00 240 ML Lactulose 30 ml DAILYPRN PRN PO 03/01/25 10:00 Hydromorphone HCl 0.5 mg Q4HPRN PRN IV 03/03/25 11:45 03/03/25 12:18 0.5 MG Laboratory Results Laboratory Tests 03/02/25 06:18 Blood Gas Results Test 03/02/25 15:32 Arterial Blood pH 7.515 (7.350-7.450) FiO2 % 21.0 Microbiology Microbiology Date/Time Source Procedure Growth Status 02/28/25 10:03 Sputum Gram Stain - Final Complete 02/28/25 10:03 Respiratory Culture - Final Enterobacter cloacae Complete 02/27/25 06:33 Nose MRSA Screen - Final Complete Labs and/or images reviewed: Labs reviewed by me Assessment/Plan Assessment/Plan Acute hypoxic respiratory failure, resolved Chronic respiratory failure on home O2 ESRD COPD DM2 HTN Mixed hyperlipidemia Elevated troponin probable 2nd to NSTEMI type 2 PLAN: Continue current management. Continue with Oxygen Continue HD per schedule Continue IV antibiotic. Waiting for labor representative Waiting for sputum culture. Stat trop is elevated. Will check trop q6h x 3 Stat EKG Cardiology consult DW patient and . This medical document was created using an electronic medical record system with [employer] direct computerized dictation system. Although this document has been carefully reviewed, there may still be some phonetic and typographical errors. These areas are purely typographical due to imperfections of the software programs, and do not reflect any compromise in the patient's medical care. Plan discussed with: Patient, Spouse My Orders Orders - GERMAINE ULLOA MD Procedure Category Date Status Time Stat Ekg For Chest SHAYLA 03/03/25 In Process Pain 10:42 Troponin-I Hs LAB 03/03/25 Logged 13:42 * Cardiology Consult CONS 03/03/25 Transmitted 11:37 Hydromorphone Hcl Inj PHA 03/03/25 In Process (Dilaudid Injectio 11:45 Date of Service: Mar 03, 2025 Billing Provider: GERMAINE ULLOA MD Common Visit Codes: [id number] INP/OBS CARE(HIGH) GERMAINE ULLOA MD Mar 03, 2025 15:12
--- NOTE | 2025-03-03 16:14 | DVHPN2 ---
Progress Note - Dictate Date Seen: Mar 03, 2025 Has the PT tested + for MRSA If YES, has PT been informed?: No Medical Necessity Reason Pt with a Central, PICC or Fol: No vital signs Vital Sign Date Time Temp Pulse Resp B/P (MAP) Pulse Ox O2 Delivery O2 Flow Rate FiO2 03/03/25 12:46 98.7 78 16 167/86 (113) 89 98.7 03/03/25 08:00 Nasal Cannula* 5 40 Total Intake and Output 03/02/25 03/02/25 03/03/25 15:00 23:00 07:00 Intake Total 766 ml 700 ml Output Total 200 ml Balance 766 ml 500 ml medications Current Medications Medications Dose Ordered Sig/Nereyda Route Start Time Stop Time Status Last Admin Dose Admin Sodium Chloride 10 ml Q8HR IV 02/26/25 22:00 03/03/25 14:16 10 ML Ondansetron HCl 4 mg Q4HP PRN IV 02/26/25 15:30 Docusate Sodium 100 mg BIDPRN PRN PO 02/26/25 15:30 02/27/25 17:40 100 MG Acetaminophen 650 mg Q6HP PRN PO 02/26/25 15:30 03/03/25 10:11 650 MG Morphine Sulfate 2 mg Q4HPRN PRN IV 02/26/25 15:30 Hold Nitroglycerin 0.4 mg Q5MINP PRN SL 02/26/25 15:30 03/03/25 10:31 0.4 MG Morphine Sulfate 2 mg Q30M PRN IV 02/26/25 15:30 Bupropion HCl 150 mg DAILY PO 02/27/25 10:00 03/03/25 10:10 150 MG Clonidine HCl 0.1 mg Q8HPRN PRN PO 02/26/25 15:30 Duloxetine HCl 30 mg DAILY PO 02/27/25 10:00 03/03/25 10:10 30 MG Acetaminophen/ Hydrocodone Bitart 1 tab BID PRN PO 02/26/25 15:30 03/02/25 10:41 1 TAB Meclizine HCl 25 mg BIDP PRN PO 02/26/25 15:30 02/27/25 17:36 25 MG Minoxidil 2.5 mg BID PO 02/26/25 22:00 03/03/25 10:10 2.5 MG Nifedipine 30 mg BID PO 02/26/25 22:00 03/03/25 10:10 30 MG Pantoprazole Sodium 40 mg DAILY PO 02/27/25 10:00 03/03/25 10:10 40 MG Trazodone HCl 50 mg HS PO 02/26/25 22:00 03/02/25 21:33 50 MG Aspirin 81 mg DAILY PO 02/27/25 10:00 03/03/25 10:11 81 MG Atorvastatin Calcium 80 mg HS PO 02/26/25 22:00 03/02/25 21:32 80 MG Patient Own Medication 1 tab BID PO 02/26/25 22:00 Hold Donepezil HCl 5 mg DAILY PO 02/27/25 10:00 03/03/25 10:11 5 MG Ipratropium [place] 0.5 mg Q4HPRN PRN NEB 02/26/25 16:15 03/02/25 18:23 0.5 MG Albuterol 2.5 mg Q4HPRN PRN NEB 02/26/25 16:15 03/02/25 18:23 2.5 MG Diagnostic Test (Pha) 1 strip ACHS 02/26/25 22:00 03/03/25 11:48 1 STRIP Insulin Human Regular HS SC 02/26/25 22:00 03/02/25 21:37 2 UNITS Insulin Human Regular AC SC 02/27/25 07:00 03/03/25 11:30 3 UNITS Dextrose 50 ml UD PRN IV 02/26/25 17:15 Ceftazidime/ Dextrose 1 gm/ Sodium Chloride 50 ml @ 50 mls/hr DAILY IV 02/28/25 10:00 03/03/25 10:09 50 MLS/HR Doxycycline Hyclate 100 ml @ 50 mls/hr Q12H IV 02/28/25 11:00 03/03/25 14:09 50 MLS/HR Enteral Nutritional Formula 240 ml TIDWM PO 02/28/25 12:00 03/03/25 12:00 240 ML Lactulose 30 ml DAILYPRN PRN PO 03/01/25 10:00 Hydromorphone HCl 0.5 mg Q4HPRN PRN IV 03/03/25 11:45 03/03/25 12:18 0.5 MG laboratory and microbiology Laboratory Tests 03/02/25 06:18 Test 03/02/25 06:18 Range/Units Serum Glucose 92 74-106 mg/dL Problem List Acute on chronic hypoxic respiratory failure Elevated troponin Pulmonary edema Pulmonary vascular congestion End-stage renal disease on hemodialysis Can not rule out underlying pneumonia Events: Remains on supplemental oxygen, 4 LPM NC no complaints Plan: Supplemental oxygen Titrate to keep O2 saturation above 92%. Complete antibiotic course. Sputum cultures grew moderate yeast, few GPC and few gram positive rods. MRSA negative Bronchodilators Monitor renal function Hemodialysis per nephrology Monitor electrolytes Supplement as necessary. Monitor ins and outs Arrange for stationary concentrator at home that goes up to 10 L/min Social work Services consultation placed GI prophylaxis-Protonix Dietary Evaluation Review Comments: Encourage and monitor PO intake to meet his needs Reinforce dietary sodium restrition Monitor cholesterol levels Expected Outcomes/Goals: No wt loss, fluid/electolyte in balance Plan discussed with: Patient JASON GUSTAFSON MD Mar 03, 2025 16:14
[2025-03-03 17:14] LABS: Potassium 5.1 mmol/L (3.5-5.1); Sodium 138 mmol/L (136-145)
[2025-03-03 17:15] LABS: Anion Gap 12 (5-15); Carbon Dioxide 29 mmol/L (20-31)
[2025-03-03 17:20] LABS: BUN/Creatinine Ratio 5.5 (10.0-20.0); Glucose 90 mg/dL (74-106)
[2025-03-03 17:21] LABS: Blood Urea Nitrogen 37 mg/dL (9-23); Calcium 8.5 mg/dL (8.7-10.4); Chloride 97 mmol/L (98-107)
--- NOTE | 2025-03-03 18:09 | DVHPN2 ---
Progress Note - Dictate Date Seen: Mar 03, 2025 Has the PT tested + for MRSA If YES, has PT been informed?: No Medical Necessity Reason Pt with a Central, PICC or Fol: No Subjective Patient was seen and evaluated in follow up. No acute events overnight. Patient denies any complaints. Noted with chest pain earlier relieved with Nitro. Remains on supplemental oxygen, 4L NC. vital signs Vital Sign Date Time Temp Pulse Resp B/P (MAP) Pulse Ox O2 Delivery O2 Flow Rate FiO2 03/03/25 16:50 97.5 71 16 160/76 (104) 94 97.5 03/03/25 10:00 Nasal Cannula* 5 40 Total Intake and Output 03/02/25 03/02/25 03/03/25 15:00 23:00 07:00 Intake Total 766 ml 700 ml Output Total 200 ml Balance 766 ml 500 ml medications Current Medications Medications Dose Ordered Sig/Nereyda Route Start Time Stop Time Status Last Admin Dose Admin Sodium Chloride 10 ml Q8HR IV 02/26/25 22:00 03/03/25 14:16 10 ML Ondansetron HCl 4 mg Q4HP PRN IV 02/26/25 15:30 Docusate Sodium 100 mg BIDPRN PRN PO 02/26/25 15:30 02/27/25 17:40 100 MG Acetaminophen 650 mg Q6HP PRN PO 02/26/25 15:30 03/03/25 10:11 650 MG Morphine Sulfate 2 mg Q4HPRN PRN IV 02/26/25 15:30 Hold Nitroglycerin 0.4 mg Q5MINP PRN SL 02/26/25 15:30 03/03/25 10:31 0.4 MG Morphine Sulfate 2 mg Q30M PRN IV 02/26/25 15:30 Bupropion HCl 150 mg DAILY PO 02/27/25 10:00 03/03/25 10:10 150 MG Clonidine HCl 0.1 mg Q8HPRN PRN PO 02/26/25 15:30 Duloxetine HCl 30 mg DAILY PO 02/27/25 10:00 03/03/25 10:10 30 MG Acetaminophen/ Hydrocodone Bitart 1 tab BID PRN PO 02/26/25 15:30 03/02/25 10:41 1 TAB Meclizine HCl 25 mg BIDP PRN PO 02/26/25 15:30 02/27/25 17:36 25 MG Minoxidil 2.5 mg BID PO 02/26/25 22:00 03/03/25 10:10 2.5 MG Nifedipine 30 mg BID PO 02/26/25 22:00 03/03/25 10:10 30 MG Pantoprazole Sodium 40 mg DAILY PO 02/27/25 10:00 03/03/25 10:10 40 MG Trazodone HCl 50 mg HS PO 02/26/25 22:00 03/02/25 21:33 50 MG Aspirin 81 mg DAILY PO 02/27/25 10:00 03/03/25 10:11 81 MG Atorvastatin Calcium 80 mg HS PO 02/26/25 22:00 03/02/25 21:32 80 MG Patient Own Medication 1 tab BID PO 02/26/25 22:00 Hold Donepezil HCl 5 mg DAILY PO 02/27/25 10:00 03/03/25 10:11 5 MG Ipratropium [place] 0.5 mg Q4HPRN PRN NEB 02/26/25 16:15 03/02/25 18:23 0.5 MG Albuterol 2.5 mg Q4HPRN PRN NEB 02/26/25 16:15 03/02/25 18:23 2.5 MG Diagnostic Test (Pha) 1 strip ACHS 02/26/25 22:00 03/03/25 11:48 1 STRIP Insulin Human Regular HS SC 02/26/25 22:00 03/02/25 21:37 2 UNITS Insulin Human Regular AC SC 02/27/25 07:00 03/03/25 11:30 3 UNITS Dextrose 50 ml UD PRN IV 02/26/25 17:15 Ceftazidime/ Dextrose 1 gm/ Sodium Chloride 50 ml @ 50 mls/hr DAILY IV 02/28/25 10:00 03/03/25 10:09 50 MLS/HR Doxycycline Hyclate 100 ml @ 50 mls/hr Q12H IV 02/28/25 11:00 03/03/25 14:09 50 MLS/HR Enteral Nutritional Formula 240 ml TIDWM PO 02/28/25 12:00 03/03/25 12:00 240 ML Lactulose 30 ml DAILYPRN PRN PO 03/01/25 10:00 Hydromorphone HCl 0.5 mg Q4HPRN PRN IV 03/03/25 11:45 03/03/25 12:18 0.5 MG objective Vitals and nursing notes reviewed. General Appearance: In no acute distress. HEENT: Atraumatic, PERRLA, Mucous membr. moist/pink Respiratory: Decreased air entry bilaterally. No wheezing. Bibasilar rhonchi. Cardiovascular: Regular rate, Normal S1, Normal S2 Abdominal: Normal bowel sounds, Soft, No tenderness Extremities: No clubbing, No cyanosis, No edema, Normal pulses, Other (right arm fistula) Skin: No rashes, No breakdown, No significant lesion Neuro: Alert, Oriented X3, Normal speech Psych/Mental Status: Mental status NL, Mood NL laboratory and microbiology Laboratory Tests 03/03/25 15:11 03/02/25 06:18 Test 03/03/25 15:11 Range/Units Serum Glucose 90 74-106 mg/dL Problem List Acute hypoxic respiratory failure Chest pain Elevated troponin ESRD on HD Assessment/Plan Agree with current supportive medical care. Cardiology consulted. Last dialyzed 03/01. Schedule HD today. IV antibiotics with Ceftriaxone and Doxycycline. Home medications resumed. GI prophylaxis. Renal diet. Additional plan as per the hospital course. Dietary Evaluation Review Comments: Encourage and monitor PO intake to meet his needs Reinforce dietary sodium restrition Monitor cholesterol levels Expected Outcomes/Goals: No wt loss, fluid/electolyte in balance Plan discussed with: Patient, Other (RN) HARJINDER RUTHERFORD DO Mar 03, 2025 18:09
[2025-03-03] MEDS: ONDANSETRON HCL 4 MG/2 ML VIAL IV PRN (18:25)
[2025-03-04] VITALS (13 sets, daily range): BP systolic 142–176; BP diastolic 70–82; PULSE 71–77; RESP 17–20; TEMP 97.6–98.4; O2SAT 94–100
--- NOTE | 2025-03-04 07:00 | DVHINCON2 ---
Date of service: Mar 04, 2025 Reason for Consultation Cardiac Perspective / Elevated Troponins History of Present Illness This is an 79-year old male known outside to our practice who initially presented 02/26/2025 with reported shortness of breath and chest discomfort. Patient himself does have underlying history of chronic respiratory failure on home oxygen therapy and reports indicate on the day of initial presentation, patient had went for routine testing outside within our practice and had been reported to have oxygen saturations within the 50% range despite use of his portable oxygen concentrator which EMS had been called and patient was later transported to present facility for further evaluation and management. Throughout course of present admission patient had been admitted with acute on chronic hypoxic respiratory failure which patient does have known history of COPD and has been managed by pulmonology services throughout present hospital course. Chest imaging had revealed evidence for pulmonary vascular congestion which patient does have underlying history of chronic diastolic heart failure with last known LVEF of 60% as per Echocardiogram findings 11/28/2024. Right ventricular systolic pressure at that time was noted to be 55mmHg consistent with underlying pulmonary hypertension which it is further noted patient himself does have history of ESRD on hemodialysis for which fluid volume is managed by Nephrology services via hemodialysis. Patient does have underlying anemia with current HGB level of 8.6. At present, serial high sensitive troponins have revealed flat/mild elevation with a peak level of 112 that had subsequently revealed gradual downtrend. 12-lead electrocardiogram had revealed sinus rhythm, first degree AVB, right bundle branch block, prolonged QTC, however with no evidence for acute ischemic changes. Of note, patient does have underlying history of coronary artery disease and is status post previous PCI with PERLA x 1 involving ostial LAD 08/04/2023. Cardiac catheterization at that time had revealed presence of a patent stent involving mLAD as well as type II pulmonary hypertension. Patient does have known history of previously provoked DVT involving subclavian/neck and had been on low-dose Xarelto as outpatient however upon review of outside records, AC therapy had recently been discontinued and patient has been kept on low-dose Aspirin given previous PCI. Of note, throughout course of present admission, it is notable that patient has been observed to have transient hypertensive events consistent with hypertensive urgency which could have attributed to patients intermittent chest pains. Despite the above, at present time of consultation, patient himself reports chest pain has now subsided. Denies any palpitations, dizziness, syncope, or any further cardiac related symptoms. Cardiology services were involved late within the admission by primary team request for cardiac aspects of care. Past medical history includes end-stage renal disease on hemodialysis, old history of CVA (2019), poor functional capacity, coronary artery disease and status post PCI (last stent in July 2023, ostial LAD), COPD, obstructive sleep apnea, diabetes mellitus, hypertension, anemia (history of repeated t ransfusions), D-CHF, SVT, pulmonary hypertension (considered type 2), history of pancytopenia (resolved later), history of DVT in upper extremity, dementia, old history of underlying RBBB, peripheral artery disease, right external iliac artery aneurysm, history of CDT colitis, repeated/significant GI bleedings and ex-smoker. Past medical history also includes DVT in the right upper extremity, history of septic shock, history of pneumonia, sick sinus syndrome and status post pacemaker (Micra/Medtronic) implantation. Echocardiogram of November 28, 2024 revealed Left ventricle: Mild concentric left ventricular hypertrophy was seen. LVEF was around 60%. There was no gross wall motion abnormality. Pseudo normal LV diastolic dysfunction was observed. Right ventricle: Right ventricle was dilated with preserved systolic function. Both atria were dilated. Aortic valve: Aortic sclerosis with no stenosis was observed. Mild aortic insufficiencywas seen. There was mild mitral regurgitation. There was xhfh-xz-rqvyhqby tricuspid regurgitation. Pulmonary valve was not well visualized. Right ventricular systolic pressure was assessed at 55 mm Hg. There was no pericardial effusion. Echocardiogram of September 11, 2024 (performed in the office) reported ejection fraction of 55-60%, pseudo-normal left ventricular diastolic dysfunction, mild biatrial enlargement, mild mitral regurgitation, tricuspid regurgitation, atrial insufficiency, mild mitral annular calcification and right ventricular systolic pressure of less than 35 mm Hg Echocardiogram of June 05, 2024 reported mild concentric left ventricular hypertrophy, ejection fraction of 45-50%, mild biatrial enlargement, mild aortic insufficiency/tricuspid regurgitation/trace mitral regurgitation. Right ventricular systolic pressure of 48 mm Hg. Echocardiogram of January 2024 had revealed: Ejection fraction of 40-45%, anterior/anteroseptal hypokinesia, biatrial enlargement, right ventricular systolic pressure 45 mm Hg. Echocardiogram October 28, 2023 had revealed mild concentric left ventricular hypertrophy, LVEF of 52% with mild diffuse hypokinesis, dilated RV/LA/RA, ksau-uq-uxzfwgpe aortic insufficiency, mild MR, moderate TR and right ventricular systolic pressure of 60 mm Hg Echocardiogram of November 08, 2023 (performed in [facility]) had reported: LVEF of 50%, gaqhzdwe-eq-aqdyid TR, mild aortic insufficiency and right ventricular systolic pressure of 49 mm Hg Echocardiogram of September 15, 2023 (performed and [facility]) revealed ejection fraction of 45-50% Echocardiogram of March 22, 2023 (performed in the office) revealed ejection fraction of 65-70%, mild concentric left ventricular hypertrophy, moderate biatrial enlargement, [id number]-hb-urgolccn MR/TR, mild AI/PI and right ventricular systolic pressure of 66 mm Hg. Left heart catheterization on August 04, 2023 revealed: 1 vessel coronary artery disease and status post PCI (drug-eluting stent deployment of ostial LAD, LVEF of 60% with increased LVEDP, patent stent in mid LAD, type 2 pulmonary hyper tension. Was seen by GI for pancreatic findings Past Medical History Reviewed Past Surgical History Reviewed Family History: Family history: Cardiovascular disease G8 BROTHER Family history: Diabetes mellitus G8 MOTHER G8 FATHER G8 BROTHER Family history: Hypertension G8 MOTHER G8 FATHER G8 BROTHER Stroke G8 MOTHER Allergies: Coded Allergies: Lisinopril (Verified Adverse Reaction, Severe, ANGIOEDEMA, 09/23/23) FACE,TONGUE, LIP SWELLING Home Meds Active Scripts Hydrocodone-Acetaminophen (Hydrocodone Bitartrate/AC 10-325 mg) 1 Tab Tab, 1 TAB PO BID PRN, #40 TAB Prov:NARESH BRASHER MD 12/02/24 Reported Medications Tizanidine Hydrochloride (Zanaflex) 4 Mg Cap, 8 MG PO HS, CAP 11/29/24 Revefenacin (Yupelri) 175 Mcg/3 Ml Lolita, 8 MCG IN DAILY, ML 11/29/24 Cholecalciferol (VITAMIN D3) 2,000 Unit Tab, 5000 UNIT OR QWEEKLY, TAB 11/29/24 Thiamine Hcl (VITAMIN B-1) 100 Mg Tb, 50 MG PO, TAB 11/29/24 Calcium Carbonate (Calcium) 600 Mg Tab, 600 MG PO BID, TAB 11/29/24 Lactulose (Lactulose) 10 Gm Darrian, 10 GM PO BID, PACK 11/29/24 Donepezil Hydrochloride (DONEPEZIL HCL) 5 Mg Tab, 1 TAB PO DAILY, #30 TAB 5 Refills 06/06/24 Insulin Isophane & Reg (Human) (Humulin 70/30 (70-30) 100 Unit/ml) 1 Units/0.01 Ml Inj 06/05/24 Ipratropium Keaton (Ipratropium Keaton) 0.02 % Lolita, NEB BID 06/05/24 Patiromer Sorbitex Calcium (Veltassa) 8.4 Gm Pow, 1 PKT PO 06/05/24 Clonidine Hydrochloride (Clonidine Hcl) 0.1 Mg Tab, 0.1 MG PO PRN for SBP>160, TAB 06/05/24 Meclizine HCl (Meclizine 25) 25 Mg Tab, 25 MG PO PRN for DIZZINESS, TAB 06/05/24 Trazodone HCl (Trazodone Hydrochloride) 50 Mg Tab, 50 MG PO HS, TAB 06/05/24 Pantoprazole Sodium Sesquihydr (Protonix) 40 Mg Tab, 40 MG PO DAILY, #30 TAB 10/28/23 Bupropion HCl (Bupropion Hydrochloride) 75 Mg Tab, 150 MG PO DAILY, TAB 10/28/23 Atorvastatin Calcium (ATORVASTATIN CALCIUM) 40 Mg Tab, 80 MG PO QPM, #90 TAB 3 Refills 10/28/23 Minoxidil (Loniten) 2.5 Mg Tb, 1 TAB PO BID 09/15/23 Hydralazine Hcl (Hydralazine Hcl) 50 Mg Tab, 1 TAB PO BID 09/15/23 Aspirin (Aspirin Low Dose) 81 Mg Chw, 1 TAB PO DAILY 09/15/23 Nitroglycerin (Nitrostat) 0.4 Mg Sub, 1 TAB SL Q5MIN PRN for CHEST PAIN for 30 Days, #25 09/15/23 Nifedipine (Nifedipine Er) 30 Mg Tab, 1 TAB PO BID 09/15/23 Duloxetine HCl (Duloxetine HCl) 30 Mg Cap, 1 CAP PO DAILY 09/15/23 Discontinued Reported Medications Hydrocodone-Acetaminophen (Hydrocodone/Acetaminophen 10-325 mg) 1 Tab Tab, 1 TAB PO BID, TAB 06/05/24 Clopidogrel Bisulfate (Plavix) 75 Mg Tab, 75 MG PO DAILY, TAB 06/05/24 Discontinued Scripts Rivaroxaban (XARELTO) 10 Mg Tab, 1 TAB PO DAILY, #90 TAB Prov:NARESH BRASHER MD 12/02/24 Insulin Isophane & Reg (Human) (Humulin 70/30 (70-30) 100 Unit/ml) 1 Units/0.01 Ml Inj, 10 UNITS SC BID, #1000 UNITS Prov:PETER LAMAR MD 06/10/24 Pantoprazole Sodium Sesquihydr (Protonix) 40 Mg Tab, 40 MG PO DAILY, #30 TAB Prov:PETER LAMAR MD 06/10/24 Vancomycin HCl (Vancomycin HCl) 125 Mg Cap, 125 MG PO QID for 14 Days, #56 CAP Prov:PETER LAMAR MD 06/10/24 Current Medications Current Medications Medications (Trade) Dose Ordered Sig/Nereyda Route PRN Reason Start Time Stop Time Status Last Admin Hydromorphone HCl (Dilaudid Injection) 0.5 mg Q4HPRN PRN IV MODERATE PAIN (4-6 PAIN SCALE) 03/03/25 11:45 03/04/25 01:04 Ceftazidime/ Dextrose 0.5 gm/ Sodium Chloride 50 ml @ 50 mls/hr DAILY IV 03/04/25 10:00 Review of Systems A 14-point review of systems is negative unless otherwise noted above Vital Signs Vital Signs Date Time Temp Pulse Resp B/P (MAP) Pulse Ox O2 Delivery O2 Flow Rate FiO2 03/04/25 05:00 98.1 76 18 142/70 (94) 96 98.1 03/03/25 20:00 Nasal Cannula* 5 40 Physical Exam Heart: S1 and S2 regular. The patient is in sinus rhythm. Lungs: Scattered rhonchi. Abdomen: Benign. Extremities: Distal pulses palpable, 2+. No evidence for peripheral edema Labs/Diagnostic Data Labs Test 03/04/25 06:03 03/03/25 15:11 03/02/25 15:32 03/02/25 06:18 Range/Units POC Glucose 95 70-106 mg/dl Sodium Level 138 136-145 mmol/L Potassium Level 5.1 3.5-5.1 mmol/L Chloride Level 97 L 98-107 mmol/L Carbon Dioxide Level 29 20-31 mmol/L Anion Gap 12 5-15 Blood Urea Nitrogen 37 #H 9-23 mg/dL Creatinine 6.72 #H 0.700-1.30 mg/dL Glomerular Filtration Rate Calc 8 >90 mL/min BUN/Creatinine Ratio 5.5 L 10.0-20.0 Serum Glucose 90 74-106 mg/dL Calcium Level 8.5 L 8.7-10.4 mg/dL Troponin I High Sensitivity 90 *H </=54 ng/L Blood Gas Specimen Type Arterial Blood Gas Sample Site Left radial Blood Gas Patient Temperature 37.0 Arterial Blood Date Drawn [id number] Arterial Blood pH 7.515 H 7.350-7.450 Arterial Blood Partial Pressure CO2 39.9 35.0-48.0 mmHg Arterial Blood Partial Pressure O2 < 36.5 *L 83.0-108.0 mmHg Arterial Blood HCO3 31.5 H 21.0-28.0 mmol/L Arterial Blood Oxygen Saturation 70.9 *L 94.0-98.0 % Arterial Blood Base Excess 7.9 H -2.0-3.0 mmol/L Arterial Blood Oxyhemoglobin 69.5 L 94.0-98.0 % Arterial Blood Carboxyhemoglobin 1.9 H 0.5-1.5 % Arterial Blood Methemoglobin 0.1 0.0-1.5 % Zachery Test Modified Blood Gas Total Hemoglobin 8.60 L 13.5-17.5 g/dL Blood Gas Modality Room air FiO2 % 21.0 Blood Gas Critical Value Read Back Yes Blood Gas Notified Whom lawrence Adkins md Blood Gas Notified Time [id number] Blood Gas Notified By Colten allen i. White Blood Count 5.9 4.4-10.8 10^3/uL Red Blood Count 2.62 L 4.5-5.90 10^6/uL Hemoglobin 8.6 L 13.5-17.5 g/dL Hematocrit 25.1 L 41.0-53.0 % Mean Corpuscular Volume 95.9 80.0-100.0 fL Mean Corpuscular Hemoglobin 32.8 H 28.0-32.0 pg Mean Corpuscular Hemoglobin Concent 34.2 32.0-36.0 g/dL Red Cell Distribution Width 14.9 H 11.8-14.3 % Platelet Count 227 140-450 10^3/uL Mean Platelet Volume 7.0 6.9-10.8 fL Neutrophils (%) (Auto) 63.0 37.0-80.0 % Lymphocytes (%) (Auto) 15.7 10.0-50.0 % Monocytes (%) (Auto) 14.0 H 0.0-12.0 % Eosinophils (%) (Auto) 6.4 0.0-7.0 % Basophils (%) (Auto) 0.9 0.0-2.0 % Neutrophils # (Auto) 3.7 1.6-8.6 10 ^3/uL Lymphocytes # (Auto) 0.9 0.4-5.4 10 ^3/uL Monocytes # (Auto) 0.8 0-1.3 10 ^3/uL Eosinophils # (Auto) 0.4 0-0.8 10 ^3/uL Basophils # (Auto) 0.1 0-0.2 10 ^3/uL Nucleated Red Blood Cells 0.2 % Magnesium Level 2.2 1.6-2.6 mg/dL Total Bilirubin 0.3 0.2-1.0 mg/dL Aspartate Amino Transferase (AST) 16 13-40 U/L Alanine Aminotransferase (ALT) < 9 7-40 U/L Alkaline Phosphatase 80 46-116 U/L Total Protein 7.5 5.7-8.2 g/dL Albumin 4.0 3.2-4.8 g/dL Test 03/01/25 17:11 02/28/25 13:41 02/27/25 04:40 02/26/25 16:50 Range/Units Hepatitis A IgM Antibody Negative Hepatitis B Surface Antigen Negative Negative Hepatitis B Core IgM Antibody Negative Negative Hepatitis C Antibody Positive *A Negative Blood Gas Liter Flow 6.00 Influenza Type A Antigen Negative Negative Influenza Type B Antigen Negative Negative SARS-CoV-2 Antigen (Rapid) Negative NEGATIVE Test 02/26/25 11:40 Range/Units B-Type Natriuretic Peptide 634.40 0-100 pg/mL Microbiology Date/Time Source Procedure Growth Status 02/28/25 10:03 Sputum Gram Stain - Final Complete 02/28/25 10:03 Respiratory Culture - Final Enterobacter cloacae Complete 02/27/25 06:33 Nose MRSA Screen - Final Complete Plan/Recommendation This is an 79-year old male known outside to our practice who initially presented 02/26/2025 with reported shortness of breath and chest discomfort. Patient himself does have underlying history of chronic respiratory failure on home oxygen therapy and reports indicate on the day of initial presentation, patient had went for routine testing outside within our practice and had been reported to have oxygen saturations within the 50% range despite use of his portable oxygen concentrator which EMS had been called and patient was later transported to present facility for further evaluation and management. Throughout course of present admission patient had been admitted with acute on chronic hypoxic respiratory failure which patient does have known history of COPD and has been managed by pulmonology services throughout present hospital course. Chest imaging had revealed evidence for pulmonary vascular congestion which patient does have underlying history of chronic diastolic heart failure with last known LVEF of 60% as per Echocardiogram findings 11/28/2024. Right ventricular systolic pressure at that time was noted to be 55mmHg consistent with underlying pulmonary hypertension which it is further noted patient himself does have history of ESRD on hemodialysis for which fluid volume is managed by Nephrology services via hemodialysis. Patient does have underlying anemia with current HGB level of 8.6. At present, serial high sensitive troponins have revealed flat/mild elevation with a peak level of 112 that had subsequently revealed gradual downtrend. 12-lead electrocardiogram had revealed sinus rhythm, first degree AVB, right bundle branch block, prolonged QTC, however with no evidence for acute ischemic changes. Of note, patient does have underlying history of coronary artery disease and is status post previous PCI with PERLA x 1 involving ostial LAD 08/04/2023. Cardiac catheterization at that time had revealed presence of a patent stent involving mLAD as well as type II pulmonary hypertension. Patient does have known history of previously provoked DVT involving subclavian/neck and had been on low-dose Xarelto as outpatient however upon review of outside records, AC therapy had recently been discontinued and patient has been kept on low-dose Aspirin given previous PCI. Of note, throughout course of present admission, it is notable that patient has been observed to have transient hypertensive events consistent with hypertensive urgency which could have attributed to patients intermittent chest pains. Despite the above, at present time of consultation, patient himself reports chest pain has now subsided. Denies any palpitations, dizziness, syncope, or any further cardiac related symptoms. Cardiology services were involved late within the admission by primary team request for cardiac aspects of care. Past medical history includes end-stage renal disease on hemodialysis, old history of CVA (2019), poor functional capacity, coronary artery disease and status post PCI (last stent in July 2023, ostial LAD), COPD, obstructive sleep apnea, diabetes mellitus, hypertension, anemia (history of repeated transfusions), D-CHF, SVT, pulmonary hypertension (considered type 2), history of pancytopenia (resolved later), history of DVT in upper extremity, dementia, old history of underlying RBBB, peripheral artery disease, right external iliac artery aneurysm, history of CDT colitis, repeated/significant GI bleedings and ex-smoker. Past medical history also includes DVT in the right upper extremity, history of septic shock, history of pneumonia, sick sinus syndrome and status post pacemaker (Micra/Medtronic) implantation. Echocardiogram of November 28, 2024 revealed Left ventricle: Mild concentric left ventricular hypertrophy was seen. LVEF was around 60%. There was no gross wall motion abnormality. Pseudo normal LV diastolic dysfunction was observed. Right ventricle: Right ventricle was dilated with preserved systolic function. Both atria were dilated. Aortic valve: Aortic sclerosis with no stenosis was observed. Mild aortic insufficiencywas seen. There was mild mitral regurgitation. There was byul-fo-nraywloi tricuspid regurgitation. Pulmonary valve was not well visualized. Right ventricular systolic pressure was assessed at 55 mm Hg. There was no pericardial effusion. Echocardiogram of September 11, 2024 (performed in the office) reported ejection fraction of 55-60%, pseudo-normal left ventricular diastolic dysfunction, mild biatrial enlargement, mild mitral regurgitation, tricuspid regurgitation, atrial insufficiency, mild mitral annular calcification and right ventricular systolic pressure of less than 35 mm Hg Echocardiogram of June 05, 2024 reported mild concentric left ventricular hypertrophy, ejection fraction of 45-50%, mild biatrial enlargement, mild aortic insufficiency/tricuspid regurgitation/trace mitral regurgitation. Right ventricular systolic pressure of 48 mm Hg. Echocardiogram of January 2024 had revealed: Ejection fraction of 40-45%, ant erior/anteroseptal hypokinesia, biatrial enlargement, right ventricular systolic pressure 45 mm Hg. Echocardiogram October 28, 2023 had revealed mild concentric left ventricular hypertrophy, LVEF of 52% with mild diffuse hypokinesis, dilated RV/LA/RA, dgpj-[id number] aortic insufficiency, mild MR, moderate TR and right ventricular systolic pressure of 60 mm Hg Echocardiogram of November 08, 2023 (performed in [facility]) had reported: LVEF of 50%, [id number] TR, mild aortic insufficiency and right ventricular systolic pressure of 49 mm Hg Echocardiogram of September 15, 2023 (performed and [facility]) revealed ejection fraction of 45-50% Echocardiogram of March 22, 2023 (performed in the office) revealed ejection fraction of 65-70%, mild concentric left ventricular hypertrophy, moderate biatrial enlargement, vfhs-hj-yqcyseqj MR/TR, mild AI/PI and right ventricular systolic pressure of 66 mm Hg. Left heart catheterization on August 04, 2023 revealed: 1 vessel coronary artery disease and status post PCI (drug-eluting stent deployment of ostial LAD, LVEF of 60% with increased LVEDP, patent stent in mid LAD, type 2 pulmonary hypertension. Was seen by GI for pancreatic findings ASSESSMENT: Acute hypoxemic respiratory failure Acute on chronic diastolic heart failure Concern for underlying COPD exacerbation Fluid overload, with known history of ESRD on HD Underlying history of type II pulmonary hypertension Anemia of chronic disease, in the setting of ESRD on HD Uncontrolled hypertension with evidence for hypertensive urgency Minimal/flat elevation of HS troponins, assessed to reflect type II physiology due to above Coronary artery disease, status post previous PCI's x 2 Presence of Medtronic Micra permanent pacemaker Previous history of provoked DVT Old history of underlying RBBB Old history of previous CVA Obstructive sleep apnea Diabetes mellitus Hyperlipidemia CARDIAC SUGGESTION FOR MANAGEMENT: Request for D-Dimer Request for device interrogation (MDT) If D-Dimer elevated, consider CTA of the Lungs and BLE Venous Duplex Recognizing clinical presentation/objective findings, ACS at this point is not considered Minimal/flat elevation of HS troponins are assessed to reflect type II phys iology at this point No indication warranted for repeat ischemic workup at present time of admission Proceed with optimized medical therapy and aggressive risk factor modification Fluid volume management as per nephrology services via hemodialysis Proceed with close observation for overt signs of fluid overload Proceed with strict intakes, outputs, and daily weights Proceed with supplemental oxygen as warranted On empiric IV antibiotic therapy as per primary Avoidance of QTC prolonging agents advised Follow up Pulmonology recommendations Hydralazine 25mg twice daily Atorvastatin 40mg once daily Nifedipine 60mg once daily Aspirin 81mg once daily Management of concurrent medical conditions per primary team Management of comorbidities as per primary team Proceed with close rate and rhythm surveillance Proceed with close hemodynamic surveillance Proceed with optimized blood pressure control Transfuse to sustain HGB level above 7.0 Sustain Magnesium level greater than 2.0 Sustain Potassium level greater than 4.0 Follow up renal function and electrolytes Management in telemetry Follow up senior solutions workflow consultant recommendations Will proceed to follow from a cardiac perspective Further recommendations per clinical progression All available diagnostic labs, EKG's, and images were personally reviewed Patient's status, findings, and plan of care was reviewed and discussed with supervising physician Dr. Gaffney, who is in agreement with current plan of care. Plan of care discussed with and agreed upon by patient / primary RN Prognosis: Guarded Thank you for allowing me to participate in the care of this patient. Further recommendations based on patients clinical course and progression, primary attending, and other consultants. Will continue to follow with primary attending. If you have any questions or concerns, please do not hesitate to contact me. A total of 75 minutes was spent reviewing the patient record, examining the patient, making a diagnostic and therapeutic plan, discussing this plan with medical personnel, following up on diagnostic studies and following the patient for clinical stability excluding any and all procedures. At least 50% of this time was spent in direct, [id number] contact. Plan discussed with: Patient (patient and primary rn ) BLANE STONER Mar 04, 2025 07:00
[2025-03-04] MEDS: cefTAZidime 0.5 GM in SODIUM CHL 0.9% 50 ML IV SCH (11:28)
--- NOTE | 2025-03-04 13:56 | DVHPN2 ---
Progress Note - Dictate Date Seen: Mar 04, 2025 Has the PT tested + for MRSA If YES, has PT been informed?: No Medical Necessity Reason Pt with a Central, PICC or Fol: No vital signs Vital Sign Date Time Temp Pulse Resp B/P (MAP) Pulse Ox O2 Delivery O2 Flow Rate FiO2 03/04/25 12:30 98.2 72 20 158/79 (105) 94 98.2 03/04/25 06:25 Simple Mask* 8 60 Total Intake and Output 03/03/25 03/03/25 03/04/25 15:00 23:00 07:00 Intake Total 233 ml 450 ml Balance 233 ml 450 ml medications Current Medications Medications Dose Ordered Sig/Nereyda Route Start Time Stop Time Status Last Admin Dose Admin Sodium Chloride 10 ml Q8HR IV 02/26/25 22:00 03/04/25 06:06 10 ML Ondansetron HCl 4 mg Q4HP PRN IV 02/26/25 15:30 03/03/25 18:25 4 MG Docusate Sodium 100 mg BIDPRN PRN PO 02/26/25 15:30 02/27/25 17:40 100 MG Acetaminophen 650 mg Q6HP PRN PO 02/26/25 15:30 03/03/25 10:11 650 MG Morphine Sulfate 2 mg Q4HPRN PRN IV 02/26/25 15:30 Hold Nitroglycerin 0.4 mg Q5MINP PRN SL 02/26/25 15:30 03/03/25 10:31 0.4 MG Morphine Sulfate 2 mg Q30M PRN IV 02/26/25 15:30 Bupropion HCl 150 mg DAILY PO 02/27/25 10:00 03/04/25 11:15 150 MG Clonidine HCl 0.1 mg Q8HPRN PRN PO 02/26/25 15:30 03/04/25 00:45 0.1 MG Duloxetine HCl 30 mg DAILY PO 02/27/25 10:00 03/04/25 11:15 30 MG Acetaminophen/ Hydrocodone Bitart 1 tab BID PRN PO 02/26/25 15:30 03/02/25 10:41 1 TAB Meclizine HCl 25 mg BIDP PRN PO 02/26/25 15:30 02/27/25 17:36 25 MG Minoxidil 2.5 mg BID PO 02/26/25 22:00 03/04/25 11:15 2.5 MG Nifedipine 30 mg BID PO 02/26/25 22:00 03/04/25 11:16 30 MG Pantoprazole Sodium 40 mg DAILY PO 02/27/25 10:00 03/04/25 11:15 40 MG Trazodone HCl 50 mg HS PO 02/26/25 22:00 03/03/25 21:36 50 MG Aspirin 81 mg DAILY PO 02/27/25 10:00 03/04/25 11:16 81 MG Atorvastatin Calcium 80 mg HS PO 02/26/25 22:00 03/03/25 21:35 80 MG Patient Own Medication 1 tab BID PO 02/26/25 22:00 Hold Donepezil HCl 5 mg DAILY PO 02/27/25 10:00 03/04/25 11:16 5 MG Ipratropium [place] 0.5 mg Q4HPRN PRN NEB 02/26/25 16:15 03/02/25 18:23 0.5 MG Albuterol 2.5 mg Q4HPRN PRN NEB 02/26/25 16:15 03/02/25 18:23 2.5 MG Diagnostic Test (Pha) 1 strip ACHS 02/26/25 22:00 03/04/25 11:30 1 STRIP Insulin Human Regular HS SC 02/26/25 22:00 03/03/25 21:37 3 UNITS Insulin Human Regular AC SC 02/27/25 07:00 03/03/25 11:30 3 UNITS Dextrose 50 ml UD PRN IV 02/26/25 17:15 Doxycycline Hyclate 100 ml @ 50 mls/hr Q12H IV 02/28/25 11:00 03/03/25 22:59 50 MLS/HR Enteral Nutritional Formula 240 ml TIDWM PO 02/28/25 12:00 03/04/25 12:29 240 ML Lactulose 30 ml DAILYPRN PRN PO 03/01/25 10:00 Hydromorphone HCl 0.5 mg Q4HPRN PRN IV 03/03/25 11:45 03/04/25 01:04 0.5 MG Ceftazidime/ Dextrose 0.5 gm/ Sodium Chloride 50 ml @ 50 mls/hr DAILY IV 03/04/25 10:00 03/04/25 11:28 50 MLS/HR laboratory and microbiology Laboratory Tests 03/03/25 15:11 03/02/25 06:18 Test 03/03/25 15:11 Range/Units Serum Glucose 90 74-106 mg/dL Assessment/Plan Acute on chronic hypoxic respiratory failure Elevated troponin Pulmonary edema Pulmonary vascular congestion End-stage renal disease on hemodialysis Can not rule out underlying pneumonia Events: Low oxygen requirements On 4 LPM NC No acute events Labs and imaging reviewed Plan: Supplemental oxygen Titrate to keep O2 saturation above 92%. Complete antibiotic course. Sputum cultures grew moderate yeast, few GPC and few gram positive rods. MRSA negative Bronchodilators Monitor renal function Hemodialysis per nephrology Monitor electrolytes Supplement as necessary. Monitor ins and outs Arrange for stationary concentrator at home that goes up to 10 L/min Social work Services consultation placed GI prophylaxis-Protonix Dietary Evaluation Review Comments: Encourage and monitor PO intake to meet his needs Reinforce dietary sodium restrition Monitor cholesterol levels Expected Outcomes/Goals: No wt loss, fluid/electolyte in balance Plan discussed with: Patient JASON GUSTAFSON MD Mar 04, 2025 13:55
[2025-03-04 15:24] LABS: Hematocrit 22.9 % (41.0-53.0); Hemoglobin 7.6 g/dL (13.5-17.5); Mean Corpuscular Hemoglobin 32.8 pg (28.0-32.0); Mean Corpuscular Volume 99.0 fL (80.0-100.0); Nucleated Red Blood Cells % 0.1 %
[2025-03-04 15:44] LABS: Albumin 3.6 g/dL (3.2-4.8); Alkaline Phosphatase 69 U/L (46-116); Anion Gap 11 (5-15); BUN/Creatinine Ratio 4.5 (10.0-20.0); Calcium 8.8 mg/dL (8.7-10.4); Carbon Dioxide 27 mmol/L (20-31); Total Protein 6.8 g/dL (5.7-8.2)
[2025-03-04 15:52] LABS: Alanine Aminotransferase < 9 U/L (7-40); Bilirubin, Total 0.3 mg/dL (0.2-1.0); Blood Urea Nitrogen 37 mg/dL (9-23); Chloride 95 mmol/L (98-107); Glucose 178 mg/dL (74-106); Sodium 133 mmol/L (136-145)
[2025-03-04 15:57] LABS: Potassium 5.6 mmol/L (3.5-5.1)
[2025-03-04] MEDS: LACTULOSE 20Gm/30ML SOLN PO PRN (17:47)
--- NOTE | 2025-03-04 20:30 | DVHPN2 ---
Progress Note - Dictate Date Seen: Mar 04, 2025 Has the PT tested + for MRSA If YES, has PT been informed?: No Medical Necessity Reason Pt with a Central, PICC or Fol: No Subjective Patient was seen and evaluated in follow up. No acute events overnight. Patient denies any complaints. Remains on 4L NC. Sputum cultures grew moderate yeast, few GPC and few gram positive rods. AM labs are remarkable for K 5.6. vital signs Vital Sign Date Time Temp Pulse Resp B/P (MAP) Pulse Ox O2 Delivery O2 Flow Rate FiO2 03/04/25 17:25 72 19 157/72 03/04/25 17:00 97.6 94 97.6 03/04/25 10:00 Nasal Cannula* 5 40 Total Intake and Output 03/03/25 03/03/25 03/04/25 15:00 23:00 07:00 Intake Total 233 ml 450 ml Balance 233 ml 450 ml medications Current Medications Medications Dose Ordered Sig/Nereyda Route Start Time Stop Time Status Last Admin Dose Admin Sodium Chloride 10 ml Q8HR IV 02/26/25 22:00 03/04/25 14:11 10 ML Ondansetron HCl 4 mg Q4HP PRN IV 02/26/25 15:30 03/03/25 18:25 4 MG Docusate Sodium 100 mg BIDPRN PRN PO 02/26/25 15:30 02/27/25 17:40 100 MG Acetaminophen 650 mg Q6HP PRN PO 02/26/25 15:30 03/03/25 10:11 650 MG Morphine Sulfate 2 mg Q4HPRN PRN IV 02/26/25 15:30 Hold Nitroglycerin 0.4 mg Q5MINP PRN SL 02/26/25 15:30 03/03/25 10:31 0.4 MG Morphine Sulfate 2 mg Q30M PRN IV 02/26/25 15:30 Bupropion HCl 150 mg DAILY PO 02/27/25 10:00 03/04/25 11:15 150 MG Clonidine HCl 0.1 mg Q8HPRN PRN PO 02/26/25 15:30 03/04/25 00:45 0.1 MG Duloxetine HCl 30 mg DAILY PO 02/27/25 10:00 03/04/25 11:15 30 MG Acetaminophen/ Hydrocodone Bitart 1 tab BID PRN PO 02/26/25 15:30 03/02/25 10:41 1 TAB Meclizine HCl 25 mg BIDP PRN PO 02/26/25 15:30 02/27/25 17:36 25 MG Minoxidil 2.5 mg BID PO 02/26/25 22:00 03/04/25 11:15 2.5 MG Pantoprazole Sodium 40 mg DAILY PO 02/27/25 10:00 03/04/25 11:15 40 MG Trazodone HCl 50 mg HS PO 02/26/25 22:00 03/03/25 21:36 50 MG Aspirin 81 mg DAILY PO 02/27/25 10:00 03/04/25 11:16 81 MG Atorvastatin Calcium 80 mg HS PO 02/26/25 22:00 03/03/25 21:35 80 MG Patient Own Medication 1 tab BID PO 02/26/25 22:00 Hold Donepezil HCl 5 mg DAILY PO 02/27/25 10:00 03/04/25 11:16 5 MG Ipratropium [place] 0.5 mg Q4HPRN PRN NEB 02/26/25 16:15 03/04/25 19:35 0.5 MG Albuterol 2.5 mg Q4HPRN PRN NEB 02/26/25 16:15 03/04/25 19:35 2.5 MG Diagnostic Test (Pha) 1 strip ACHS 02/26/25 22:00 03/04/25 17:00 1 STRIP Insulin Human Regular HS SC 02/26/25 22:00 03/03/25 21:37 3 UNITS Insulin Human Regular AC SC 02/27/25 07:00 03/04/25 17:00 2 UNITS Dextrose 50 ml UD PRN IV 02/26/25 17:15 Doxycycline Hyclate 100 ml @ 50 mls/hr Q12H IV 02/28/25 11:00 03/04/25 14:08 50 MLS/HR Enteral Nutritional Formula 240 ml TIDWM PO 02/28/25 12:00 03/04/25 18:00 240 ML Lactulose 30 ml DAILYPRN PRN PO 03/01/25 10:00 03/04/25 17:47 30 ML Hydromorphone HCl 0.5 mg Q4HPRN PRN IV 03/03/25 11:45 03/04/25 16:55 0.5 MG Ceftazidime/ Dextrose 0.5 gm/ Sodium Chloride 50 ml @ 50 mls/hr DAILY IV 03/04/25 10:00 03/04/25 11:28 50 MLS/HR Nifedipine 60 mg BID PO 03/04/25 22:00 Hydralazine HCl 25 mg Q12HR PO 03/04/25 22:00 Zirconium Oxide 10 gm TID PO 03/04/25 22:00 03/05/25 14:01 objective Vitals and nursing notes reviewed. General Appearance: In no acute distress. HEENT: Atraumatic, PERRLA, Mucous membr. moist/pink Respiratory: Decreased air entry bilaterally. No wheezing. Bibasilar rhonchi. Cardiovascular: Regular rate, Normal S1, Normal S2 Abdominal: Normal bowel sounds, Soft, No tenderness Extremities: No clubbing, No cyanosis, No edema, Normal pulses, Other (right arm fistula) Skin: No rashes, No breakdown, No significant lesion Neuro: Alert, Oriented X3, Normal speech Psych/Mental Status: Mental status NL, Mood NL laboratory and microbiology Laboratory Tests 03/04/25 14:50 Test 03/04/25 14:50 Range/Units Serum Glucose 178 H 74-106 mg/dL Problem List Acute hypoxic respiratory failure Chest pain Elevated troponin ESRD on HD Assessment/Plan Agree with current supportive medical care. Cardiology and Pulmonary Medicine consulted. Pacemaker interrogation pending. Scheduled for dialysis. Start Lokelma 10 g oral TID x 3 doses. IV antibiotics with Ceftriaxone and Doxycycline. Home medications resumed. GI prophylaxis. Renal diet. Additional plan as per the hospital course. Dietary Evaluation Review Comments: Encourage and monitor PO intake to meet his needs Reinforce dietary sodium restrition Monitor cholesterol levels Expected Outcomes/Goals: No wt loss, fluid/electolyte in balance Plan discussed with: Patient, Other (RN) HARJINDER RUTHERFORD DO Mar 04, 2025 20:30
--- NOTE | 2025-03-04 21:30 | DVHPN2 ---
Subjective The patient is seen and examined at bedside. Complains of chest pain. Reviewed: Care Plan, H&P, Labs, Medications, Previous Orders, Radiology Changes from previous H/P or p: No Changes Eyes: No Pain, No Vision change, No Conjunctivae inflammation, No Eyelid inflammation, No Other, No Redness ENT: No Ear pain, No Ear discharge, No Nose pain, No Nose discharge, No Nose congestion, No Mouth pain, No Mouth swelling, No Throat pain, No Throat swelling, No Other Cardiovascular: Chest Pain; No Palpitations, No Orthopnea, No Paroxysmal Noc. Dyspnea, No Edema, No Lt Headedness, No Other Respiratory: No Cough, No Dry; Shortness of breath, SOB with excertion; No Wheezing, No Hemoptysis, No Pleuritic Pain, No Sputum, No Other Gastrointestinal: No Nausea, No Vomiting, No Abdominal Pain, No Diarrhea, No Constipation, No Melena, No Hematochezia, No Other Genitourinary: No Dysuria, No Frequency, No Incontinence, No Hematuria, No Retention, No Other Musculoskeletal: No other, No neck pain, No shoulder pain, No arm pain, No back pain, No hand pain, No leg pain, No foot pain Skin: No Rash, No Lesions, No Jaundice, No Bruising, No Other Objective Vitals Vital Signs Date Time Temp Pulse Resp B/P (MAP) Pulse Ox O2 Delivery O2 Flow Rate FiO2 03/04/25 17:25 72 19 157/72 03/04/25 17:00 97.6 94 97.6 03/04/25 10:00 Nasal Cannula* 5 40 Intake/Output Intake and Output 03/04/25 07:00 Intake Total 683 ml Balance 683 ml Intake Oral 583 ml IV Total 100 ml General Appearance: Alert, Oriented X3 HEENT: Atraumatic, PERRLA, EOMI, Mucous membr. moist/pink Lungs: Clear to auscultation, Normal air movement Cardiovascular: Regular rate, Normal S1, Normal S2, No murmurs, Gallops, Rubs Abdomen: Normal bowel sounds, Soft, No tenderness Extremities: No edema Neuro: Cranial nerves 3-12 NL Psych/Mental Status: Mental status NL Medications Current Medications Medications Dose Ordered Sig/Nereyda Route Start Time Stop Time Status Last Admin Dose Admin Sodium Chloride 10 ml Q8HR IV 02/26/25 22:00 03/04/25 14:11 10 ML Ondansetron HCl 4 mg Q4HP PRN IV 02/26/25 15:30 03/03/25 18:25 4 MG Docusate Sodium 100 mg BIDPRN PRN PO 02/26/25 15:30 02/27/25 17:40 100 MG Acetaminophen 650 mg Q6HP PRN PO 02/26/25 15:30 03/03/25 10:11 650 MG Morphine Sulfate 2 mg Q4HPRN PRN IV 02/26/25 15:30 Hold Nitroglycerin 0.4 mg Q5MINP PRN SL 02/26/25 15:30 03/03/25 10:31 0.4 MG Morphine Sulfate 2 mg Q30M PRN IV 02/26/25 15:30 Bupropion HCl 150 mg DAILY PO 02/27/25 10:00 03/04/25 11:15 150 MG Clonidine HCl 0.1 mg Q8HPRN PRN PO 02/26/25 15:30 03/04/25 00:45 0.1 MG Duloxetine HCl 30 mg DAILY PO 02/27/25 10:00 03/04/25 11:15 30 MG Acetaminophen/ Hydrocodone Bitart 1 tab BID PRN PO 02/26/25 15:30 03/02/25 10:41 1 TAB Meclizine HCl 25 mg BIDP PRN PO 02/26/25 15:30 02/27/25 17:36 25 MG Minoxidil 2.5 mg BID PO 02/26/25 22:00 03/04/25 11:15 2.5 MG Pantoprazole Sodium 40 mg DAILY PO 02/27/25 10:00 03/04/25 11:15 40 MG Trazodone HCl 50 mg HS PO 02/26/25 22:00 03/03/25 21:36 50 MG Aspirin 81 mg DAILY PO 02/27/25 10:00 03/04/25 11:16 81 MG Atorvastatin Calcium 80 mg HS PO 02/26/25 22:00 03/03/25 21:35 80 MG Patient Own Medication 1 tab BID PO 02/26/25 22:00 Hold Donepezil HCl 5 mg DAILY PO 02/27/25 10:00 03/04/25 11:16 5 MG Ipratropium [place] 0.5 mg Q4HPRN PRN NEB 02/26/25 16:15 03/04/25 19:35 0.5 MG Albuterol 2.5 mg Q4HPRN PRN NEB 02/26/25 16:15 03/04/25 19:35 2.5 MG Diagnostic Test (Pha) 1 strip ACHS 02/26/25 22:00 03/04/25 17:00 1 STRIP Insulin Human Regular HS SC 02/26/25 22:00 03/03/25 21:37 3 UNITS Insulin Human Regular AC SC 02/27/25 07:00 03/04/25 17:00 2 UNITS Dextrose 50 ml UD PRN IV 02/26/25 17:15 Doxycycline Hyclate 100 ml @ 50 mls/hr Q12H IV 02/28/25 11:00 03/04/25 14:08 50 MLS/HR Enteral Nutritional Formula 240 ml TIDWM PO 02/28/25 12:00 03/04/25 18:00 240 ML Lactulose 30 ml DAILYPRN PRN PO 03/01/25 10:00 03/04/25 17:47 30 ML Hydromorphone HCl 0.5 mg Q4HPRN PRN IV 03/03/25 11:45 03/04/25 16:55 0.5 MG Ceftazidime/ Dextrose 0.5 gm/ Sodium Chloride 50 ml @ 50 mls/hr DAILY IV 03/04/25 10:00 03/04/25 11:28 50 MLS/HR Nifedipine 60 mg BID PO 03/04/25 22:00 Hydralazine HCl 25 mg Q12HR PO 03/04/25 22:00 Zirconium Oxide 10 gm TID PO 03/04/25 22:00 03/05/25 14:01 Laboratory Results Laboratory Tests 03/04/25 14:50 Chemistry Test 03/04/25 14:50 Albumin 3.6 g/dL (3.2-4.8) Calcium Level 8.8 mg/dL (8.7-10.4) Total Protein 6.8 g/dL (5.7-8.2) LFT Test 03/04/25 14:50 Alanine Aminotransferase (ALT) < 9 U/L (7-40) Alkaline Phosphatase 69 U/L (46-116) Aspartate Amino Transferase (AST) 15 U/L (13-40) Total Bilirubin 0.3 mg/dL (0.2-1.0) Microbiology Microbiology Date/Time Source Procedure Growth Status 02/28/25 10:03 Sputum Gram Stain - Final Complete 02/28/25 10:03 Respiratory Culture - Final Enterobacter cloacae Complete 02/27/25 06:33 Nose MRSA Screen - Final Complete Labs and/or images reviewed: Labs reviewed by me Assessment/Plan Assessment/Plan Acute hypoxic respiratory failure, resolved Chronic respiratory failure on home O2 ESRD COPD DM2 HTN Mixed hyperlipidemia Elevated troponin probable 2nd to NSTEMI type 2 PLAN: Continue current management. Continue with Oxygen Continue HD per schedule Continue IV antibiotic. 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 Stat trop is elevated. Will check trop q6h x 3 Stat EKG Appreciate [employer] in put No further cardiac work up This medical document was created using an electronic medical record system with [employer] dictation system. Although this document has been carefully reviewed, there may still be some phonetic and typographical errors. These areas are purely typographical due to imperfections of the software programs, and do not reflect any compromise in the patient's medical care. DW patient and . This medical document was created using an electronic medical record system with [employer] dictation system. Although this document has been carefully reviewed, there may still be some phonetic and typographical errors. These areas are purely typographical due to imperfections of the software programs, and do not reflect any compromise in the patient's medical care. Plan discussed with: Patient Date of Service: Mar 04, 2025 Billing Provider: GERMAINE ULLOA MD Common Visit Codes: [id number] INP/OBS CARE(HIGH) GERMAINE ULLOA MD Mar 04, 2025 21:30
[2025-03-04] MEDS: SODIUM ZIRCONIUM CYCL 10 GM PAK PO SCH (22:43)
[2025-03-05] VITALS (13 sets, daily range): BP systolic 136–150; BP diastolic 54–72; PULSE 71–82; RESP 16–20; TEMP 98.1–98.8; O2SAT 94–99
--- NOTE | 2025-03-05 09:13 | DVHPN2 ---
Progress Note - Dictate Date Seen: Mar 05, 2025 Has the PT tested + for MRSA If YES, has PT been informed?: No Medical Necessity Reason Pt with a Central, PICC or Fol: No vital signs Vital Sign Date Time Temp Pulse Resp B/P (MAP) Pulse Ox O2 Delivery O2 Flow Rate FiO2 03/05/25 08:39 98.5 73 20 143/56 (85) 94 98.5 03/05/25 06:23 Simple Mask* 6 50 Total Intake and Output 03/04/25 03/04/25 03/05/25 15:00 23:00 07:00 Intake Total 360 ml 400 ml Output Total 0 ml Balance 360 ml 400 ml medications Current Medications Medications Dose Ordered Sig/Nereyda Route Start Time Stop Time Status Last Admin Dose Admin Sodium Chloride 10 ml Q8HR IV 02/26/25 22:00 03/05/25 06:16 10 ML Ondansetron HCl 4 mg Q4HP PRN IV 02/26/25 15:30 03/03/25 18:25 4 MG Docusate Sodium 100 mg BIDPRN PRN PO 02/26/25 15:30 02/27/25 17:40 100 MG Acetaminophen 650 mg Q6HP PRN PO 02/26/25 15:30 03/03/25 10:11 650 MG Morphine Sulfate 2 mg Q4HPRN PRN IV 02/26/25 15:30 Hold Nitroglycerin 0.4 mg Q5MINP PRN SL 02/26/25 15:30 03/03/25 10:31 0.4 MG Morphine Sulfate 2 mg Q30M PRN IV 02/26/25 15:30 Bupropion HCl 150 mg DAILY PO 02/27/25 10:00 03/04/25 11:15 150 MG Clonidine HCl 0.1 mg Q8HPRN PRN PO 02/26/25 15:30 03/04/25 00:45 0.1 MG Duloxetine HCl 30 mg DAILY PO 02/27/25 10:00 03/04/25 11:15 30 MG Acetaminophen/ Hydrocodone Bitart 1 tab BID PRN PO 02/26/25 15:30 03/02/25 10:41 1 TAB Meclizine HCl 25 mg BIDP PRN PO 02/26/25 15:30 02/27/25 17:36 25 MG Minoxidil 2.5 mg BID PO 02/26/25 22:00 03/04/25 22:41 2.5 MG Pantoprazole Sodium 40 mg DAILY PO 02/27/25 10:00 03/04/25 11:15 40 MG Trazodone HCl 50 mg HS PO 02/26/25 22:00 03/04/25 22:42 50 MG Aspirin 81 mg DAILY PO 02/27/25 10:00 03/04/25 11:16 81 MG Atorvastatin Calcium 80 mg HS PO 02/26/25 22:00 03/04/25 22:42 80 MG Patient Own Medication 1 tab BID PO 02/26/25 22:00 Hold Donepezil HCl 5 mg DAILY PO 02/27/25 10:00 03/04/25 11:16 5 MG Ipratropium [place] 0.5 mg Q4HPRN PRN NEB 02/26/25 16:15 03/04/25 19:35 0.5 MG Albuterol 2.5 mg Q4HPRN PRN NEB 02/26/25 16:15 03/04/25 19:35 2.5 MG Diagnostic Test (Pha) 1 strip ACHS 02/26/25 22:00 03/05/25 06:28 1 STRIP Insulin Human Regular HS SC 02/26/25 22:00 03/04/25 22:45 2 UNITS Insulin Human Regular AC SC 02/27/25 07:00 03/04/25 17:00 2 UNITS Dextrose 50 ml UD PRN IV 02/26/25 17:15 Doxycycline Hyclate 100 ml @ 50 mls/hr Q12H IV 02/28/25 11:00 03/04/25 22:45 50 MLS/HR Enteral Nutritional Formula 240 ml TIDWM PO 02/28/25 12:00 03/04/25 18:00 240 ML Lactulose 30 ml DAILYPRN PRN PO 03/01/25 10:00 03/04/25 17:47 30 ML Hydromorphone HCl 0.5 mg Q4HPRN PRN IV 03/03/25 11:45 03/05/25 06:16 0.5 MG Ceftazidime/ Dextrose 0.5 gm/ Sodium Chloride 50 ml @ 50 mls/hr DAILY IV 03/04/25 10:00 03/04/25 11:28 50 MLS/HR Nifedipine 60 mg BID PO 03/04/25 22:00 03/04/25 22:42 60 MG Hydralazine HCl 25 mg Q12HR PO 03/04/25 22:00 03/04/25 22:41 25 MG Zirconium Oxide 10 gm TID PO 03/04/25 22:00 03/05/25 14:01 03/05/25 06:16 10 GM laboratory and microbiology Laboratory Tests 03/04/25 14:50 Test 03/04/25 14:50 Range/Units Serum Glucose 178 H 74-106 mg/dL Assessment/Plan This is an 79-year old male known outside to our practice who initially presented 02/26/2025 with reported shortness of breath and chest discomfort. Patient himself does have underlying history of chronic respiratory failure on home oxygen therapy and reports indicate on the day of initial presentation, patient had went for routine testing outside within our practice and had been reported to have oxygen saturations within the 50% range despite use of his portable oxygen concentrator which EMS had been called and patient was later transported to present facility for further evaluation and management. Throughout course of present admission patient had been admitted with acute on chronic hypoxic respiratory failure which patient does have known history of COPD and has been managed by pulmonology services throughout present hospital course. Chest imaging had revealed evidence for pulmonary vascular congestion which patient does have underlying history of chronic diastolic heart failure with last known LVEF of 60% as per Echocardiogram findings 11/28/2024. Right ventricular systolic pressure at that time was noted to be 55mmHg consistent with underlying pulmonary hypertension which it is further noted patient himself does have history of ESRD on hemodialysis for which fluid volume is managed by Nephrology services via hemodialysis. Patient does have underlying anemia. Serial high sensitive troponins have revealed flat/mild elevation with a peak level of 112 that had subsequently revealed gradual downtrend. 12-lead electrocardiogram had revealed sinus rhythm, first degree AVB, right bundle branch block, prolonged QTC, however with no evidence for acute ischemic changes. Of note, patient does have underlying history of coronary artery disease and is status post previous PCI with PERLA x 1 involving ostial LAD 08/04/2023. Cardiac catheterization at that time had revealed presence of a patent stent involving mLAD as well as type II pulmonary hypertension. Patient does have known history of previously provoked DVT involving subclavian/neck and had been on low-dose Xarelto as outpatient however upon review of outside records, AC therapy had recently been discontinued and patient has been kept on low-dose Aspirin given previous PCI. Of note, throughout course of present admission, it is notable that patient has been observed to have transient hypertensive events consistent with hypertensive urgency which could have attributed to patients intermittent chest pains. Despite the above, at present time of consultation, patient himself reports chest pain has now subsided. Denies any palpitations, dizziness, syncope, or any further cardiac related symptoms. Cardiology services were involved late within the admission (on ) by primary team request for cardiac aspects of care. Past medical history includes end-stage renal disease on hemodialysis, old history of CVA (2018), poor functional capacity, coronary artery disease and status post PCI (last stent in July 2023, ostial LAD), COPD, obstructive sleep apnea, diabetes mellitus, hypertension, anemia (history of repeated transfusions), D-CHF, SVT, pulmonary hypertension (considered type 2), history of pancytopenia (resolved later), history of DVT in upper extremity, dementia, old history of underlying RBBB, peripheral artery disease, right external iliac artery aneurysm, history of CDT colitis, repeated/significant GI bleedings, 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 Past medical history also includes DVT in the right upper extremity, history of septic shock, history of pneumonia, sick sinus syndrome and status post pacemaker (Micra/Medtronic) implantation. Echocardiogram of November 28, 2024 revealed Left ventricle: Mild concentric left ventricular hypertrophy was seen. LVEF was around 60%. There was no gross wall motion abnormality. Pseudo normal LV diastolic dysfunction was observed. Right ventricle: Right ventricle was dilated with preserved systolic function. Both atria were dilated. Aortic valve: Aortic sclerosis with no stenosis was observed. Mild aortic insufficiencywas seen. There was mild mitral regurgitation. There was lstw-yo-ljrbkdoe tricuspid regurgitation. Pulmonary valve was not well visualized. Right ventricular systolic pressure was assessed at 55 mm Hg. There was no pericardial effusion. Echocardiogram of 2024 revealed: EF of 60%, pseudonormal LV filling, dilated RV, VIVIANA, mild AI, Mild MR, mild to moderate TR and RVSP of 55 mmHg. Echocardiogram of September 11, 2024 (performed in the office) reported ejection fraction of 55-60%, pseudo-normal left ventricular diastolic dysfunction, mild biatrial enlargement, mild mitral regurgitation, tricuspid regurgitation, atrial insufficiency, mild mitral annular calcification and right ventricular systolic pressure of less than 35 mm Hg Echocardiogram of June 05, 2024 reported mild concentric left ventricular hypertrophy, ejection fraction of 45-50%, mild biatrial enlargement, mild aortic insufficiency/tricuspid regurgitation/trace mitral regurgitation. Right ventricular systolic pressure of 48 mm Hg. Echocardiogram of January 2024 had revealed: Ejection fraction of 40-45%, anterior/anteroseptal hypokinesia, biatrial enlargement, right ventricular systolic pressure 45 mm Hg. Echocardiogram October 28, 2023 had revealed mild concentric left ventricular hypertrophy, LVEF of 52% with mild diffuse hypokinesis, dilated RV/LA/RA, rwgr-br-sykxdlse aortic insufficiency, mild MR, moderate TR and right ventricular systolic pressure of 60 mm Hg Echocardiogram of November 08, 2023 (performed in [facility]) had reported: LVEF of 50%, exaryozl-gy-lxfwai TR, mild aortic insufficiency and right ventricular systolic pressure of 49 mm Hg Echocardiogram of September 15, 2023 (performed and [facility]) revealed ejection fraction of 45-50% Echocardiogram of March 22, 2023 (performed in the office) revealed ejection fraction of 65-70%, mild concentric left ventricular hypertrophy, moderate biatrial enlargement, aijn-li-ydrfhplo MR/TR, mild AI/PI and right ventricular systolic pressure of 66 mm Hg. Left heart catheterization on August 04, 2023 revealed: 1 vessel coronary artery disease and status post PCI (drug-eluting stent deployment of ostial LAD, LVEF of 60% with increased LVEDP, patent stent in mid LAD, type 2 pulmonary hypertension. ASSESSMENT: Acute hypoxemic respiratory failure Acute on chronic diastolic heart failure Concern for underlying COPD exacerbation Fluid overload, with known history of ESRD on HD Underlying history of type II pulmonary hypertension Anemia of chronic disease, in the setting of ESRD on HD Uncontrolled hypertension with evidence for hypertensive urgency Minimal/flat elevation of HS troponins, assessed to reflect type II physiology due to above Coronary artery disease, status post previous PCI's x 2 Presence of Medtronic Micra permanent pacemaker Previous history of provoked DVT Old history of underlying RBBB Old history of previous CVA Obstructive sleep apnea Diabetes mellitus Hyperlipidemia CARDIAC SUGGESTION FOR MANAGEMENT: Awaiting D-Dimer Awaiting device interrogation (MDT) If D-Dimer elevated, consider CTA of the Lungs and BLE Venous Duplex Recognizing clinical presentation/objective findings, ACS at this point is not considered Minimal/flat elevation of HS troponins are assessed to reflect type II physiology at this point No indication warranted for repeat ischemic workup at present time of admission Proceed with optimized medical therapy and aggressive risk factor modification Fluid volume management as per nephrology services via hemodialysis Proceed with close observation for overt signs of fluid overload Proceed with strict intakes, outputs, and daily weights Proceed with supplemental oxygen as warranted On empiric IV antibiotic therapy as per primary Avoidance of QTC prolonging agents advised Follow up Pulmonology recommendations Hydralazine 25mg twice daily Atorvastatin 40mg once daily Nifedipine 60mg once daily Aspirin 81mg once daily Oral Lasix Management of concurrent medical conditions per primary team Management of comorbidities as per primary team Proceed with close rate and rhythm surveillance Proceed with close hemodynamic surveillance Proceed with optimized blood pressure control Transfuse to sustain HGB level above 7.0 Sustain Magnesium level greater than 2.0 Sustain Potassium level greater than 4.0 Follow up renal function and electrolytes Management in telemetry Follow up senior solutions consultant recommendations Will proceed to follow from a cardiac perspective Further recommendations per clinical progression All available diagnostic labs, EKG's, and images were personally reviewed Plan of care discussed with and agreed upon by patient / primary RN Prognosis: Guarded Thank you for allowing me to participate in the care of this patient. Further recommendations based on patients clinical course and progression, primary attending, and other consultants. Will continue to follow with primary attending. If you have any questions or concerns, please do not hesitate to contact me. A total of 55 minutes was spent reviewing the patient record, examining the patient, making a diagnostic and therapeutic plan, discussing this plan with medical personnel, following up on diagnostic studies and following the patient for clinical stability excluding any and all procedures. At least 50% of this time was spent in direct, [id number] contact. Dietary Evaluation Review Comments: Encourage and monitor PO intake to meet his needs Reinforce dietary sodium restrition Monitor cholesterol levels Expected Outcomes/Goals: No wt loss, fluid/electolyte in balance Plan discussed with: Patient, Other (nurse) NICOLE KERNS MD Mar 05, 2025 09:13
--- NOTE | 2025-03-05 12:14 | DVHPN2 ---
Subjective The patient is seen and examined at bedside. Complains of shortness of breath. Still waiting for dialysis Reviewed: Care Plan, H&P, Labs, Medications, Previous Orders, Radiology Changes from previous H/P or p: No Changes Eyes: No Pain, No Vision change, No Conjunctivae inflammation, No Eyelid inflammation, No Other, No Redness ENT: No Ear pain, No Ear discharge, No Nose pain, No Nose discharge, No Nose congestion, No Mouth pain, No Mouth swelling, No Throat pain, No Throat swelling, No Other Cardiovascular: Chest Pain; No Palpitations, No Orthopnea, No Paroxysmal Noc. Dyspnea, No Edema, No Lt Headedness, No Other Respiratory: No Cough, No Dry; Shortness of breath, SOB with excertion; No Wheezing, No Hemoptysis, No Pleuritic Pain, No Sputum, No Other Gastrointestinal: No Nausea, No Vomiting, No Abdominal Pain, No Diarrhea, No Constipation, No Melena, No Hematochezia, No Other Genitourinary: No Dysuria, No Frequency, No Incontinence, No Hematuria, No Retention, No Other Musculoskeletal: No other, No neck pain, No shoulder pain, No arm pain, No back pain, No hand pain, No leg pain, No foot pain Skin: No Rash, No Lesions, No Jaundice, No Bruising, No Other Objective Vitals Vital Signs Date Time Temp Pulse Resp B/P (MAP) Pulse Ox O2 Delivery O2 Flow Rate FiO2 03/05/25 11:56 75 16 99 03/05/25 08:39 98.5 143/56 (85) 98.5 03/05/25 06:23 Simple Mask* 6 50 Intake/Output Intake and Output 03/05/25 07:00 Intake Total 760 ml Output Total 0 ml Balance 760 ml Intake Oral 760 ml Output Urine Total 0 ml General Appearance: Alert, Oriented X3 HEENT: Atraumatic, PERRLA, EOMI, Mucous membr. moist/pink Lungs: Clear to auscultation, Normal air movement Cardiovascular: Regular rate, Normal S1, Normal S2, No murmurs, Gallops, Rubs Abdomen: Normal bowel sounds, Soft, No tenderness Extremities: No edema Neuro: Cranial nerves 3-12 NL Psych/Mental Status: Mental status NL Medications Current Medications Medications Dose Ordered Sig/Nereyda Route Start Time Stop Time Status Last Admin Dose Admin Sodium Chloride 10 ml Q8HR IV 02/26/25 22:00 03/05/25 06:16 10 ML Ondansetron HCl 4 mg Q4HP PRN IV 02/26/25 15:30 03/03/25 18:25 4 MG Docusate Sodium 100 mg BIDPRN PRN PO 02/26/25 15:30 02/27/25 17:40 100 MG Acetaminophen 650 mg Q6HP PRN PO 02/26/25 15:30 03/03/25 10:11 650 MG Morphine Sulfate 2 mg Q4HPRN PRN IV 02/26/25 15:30 Hold Nitroglycerin 0.4 mg Q5MINP PRN SL 02/26/25 15:30 03/03/25 10:31 0.4 MG Morphine Sulfate 2 mg Q30M PRN IV 02/26/25 15:30 Bupropion HCl 150 mg DAILY PO 02/27/25 10:00 03/05/25 11:06 150 MG Clonidine HCl 0.1 mg Q8HPRN PRN PO 02/26/25 15:30 03/04/25 00:45 0.1 MG Duloxetine HCl 30 mg DAILY PO 02/27/25 10:00 03/05/25 11:07 30 MG Acetaminophen/ Hydrocodone Bitart 1 tab BID PRN PO 02/26/25 15:30 03/02/25 10:41 1 TAB Meclizine HCl 25 mg BIDP PRN PO 02/26/25 15:30 02/27/25 17:36 25 MG Minoxidil 2.5 mg BID PO 02/26/25 22:00 03/04/25 22:41 2.5 MG Pantoprazole Sodium 40 mg DAILY PO 02/27/25 10:00 03/05/25 11:07 40 MG Trazodone HCl 50 mg HS PO 02/26/25 22:00 03/04/25 22:42 50 MG Aspirin 81 mg DAILY PO 02/27/25 10:00 03/05/25 11:07 81 MG Atorvastatin Calcium 80 mg HS PO 02/26/25 22:00 03/04/25 22:42 80 MG Patient Own Medication 1 tab BID PO 02/26/25 22:00 Hold Donepezil HCl 5 mg DAILY PO 02/27/25 10:00 03/05/25 11:06 5 MG Ipratropium [place] 0.5 mg Q4HPRN PRN NEB 02/26/25 16:15 03/05/25 11:47 0.5 MG Albuterol 2.5 mg Q4HPRN PRN NEB 02/26/25 16:15 03/05/25 11:47 2.5 MG Diagnostic Test (Pha) 1 strip ACHS 02/26/25 22:00 03/05/25 06:28 1 STRIP Insulin Human Regular HS SC 02/26/25 22:00 03/04/25 22:45 2 UNITS Insulin Human Regular AC SC 02/27/25 07:00 03/05/25 12:00 2 UNITS Dextrose 50 ml UD PRN IV 02/26/25 17:15 Doxycycline Hyclate 100 ml @ 50 mls/hr Q12H IV 02/28/25 11:00 03/04/25 22:45 50 MLS/HR Enteral Nutritional Formula 240 ml TIDWM PO 02/28/25 12:00 03/05/25 08:00 240 ML Lactulose 30 ml DAILYPRN PRN PO 03/01/25 10:00 03/04/25 17:47 30 ML Hydromorphone HCl 0.5 mg Q4HPRN PRN IV 03/03/25 11:45 03/05/25 06:16 0.5 MG Ceftazidime/ Dextrose 0.5 gm/ Sodium Chloride 50 ml @ 50 mls/hr DAILY IV 03/04/25 10:00 03/04/25 11:28 50 MLS/HR Nifedipine 60 mg BID PO 03/04/25 22:00 03/04/25 22:42 60 MG Hydralazine HCl 25 mg Q12HR PO 03/04/25 22:00 03/04/25 22:41 25 MG Zirconium Oxide 10 gm TID PO 03/04/25 22:00 03/05/25 14:01 03/05/25 06:16 10 GM Enoxaparin Sodium 40 mg DAILY SC 03/06/25 10:00 UNV Furosemide 20 mg DAILY PO 03/06/25 10:00 Laboratory Results Laboratory Tests 03/04/25 14:50 Chemistry Test 03/04/25 14:50 Albumin 3.6 g/dL (3.2-4.8) Calcium Level 8.8 mg/dL (8.7-10.4) Total Protein 6.8 g/dL (5.7-8.2) LFT Test 03/04/25 14:50 Alanine Aminotransferase (ALT) < 9 U/L (7-40) Alkaline Phosphatase 69 U/L (46-116) Aspartate Amino Transferase (AST) 15 U/L (13-40) Total Bilirubin 0.3 mg/dL (0.2-1.0) Microbiology Microbiology Date/Time Source Procedure Growth Status 02/28/25 10:03 Sputum Gram Stain - Final Complete 02/28/25 10:03 Respiratory Culture - Final Enterobacter cloacae Complete 02/27/25 06:33 Nose MRSA Screen - Final Complete Assessment/Plan Assessment/Plan Acute hypoxic respiratory failure, resolved Chronic respiratory failure on home O2 ESRD COPD DM2 HTN Mixed hyperlipidemia Elevated troponin probable 2nd to NSTEMI type 2 PLAN: Continue current management. Continue with Oxygen Continue HD per schedule Continue IV antibiotic. Waiting for donkey doctor Waiting for sputum culture. Stat trop is elevated. Will check trop q6h x 3 Stat EKG Appreciate Global Logistics Manager in put No further cardiac work up CTA of chest and US BUE and BLE rule out DVT and PE This medical document was created using an electronic medical record system with [employer] dictation system. Although this document has been carefully reviewed, there may still be some phonetic and typographical errors. These areas are purely typographical due to imperfections of the software programs, and do not reflect any compromise in the patient's medical care. DW patient and . This medical document was created using an electronic medical record system with [employer] dictation system. Although this document has been carefully reviewed, there may still be some phonetic and typographical errors. These areas are purely typographical due to imperfections of the software programs, and do not reflect any compromise in the patient's medical care. Plan discussed with: Patient, Spouse Date of Service: Mar 05, 2025 Billing Provider: GERMAINE ULLOA MD Common Visit Codes: 59900-[id number] INP/OBS CARE(HIGH) GERMAINE ULLOA MD Mar 05, 2025 12:13
[2025-03-05 12:29] LABS: Hematocrit 22.6 % (41.0-53.0); Hemoglobin 7.7 g/dL (13.5-17.5); Mean Corpuscular Hemoglobin 32.3 pg (28.0-32.0); Mean Corpuscular Volume 95.3 fL (80.0-100.0); Nucleated Red Blood Cells % 0.0 %
[2025-03-05 12:42] LABS: Alanine Aminotransferase < 9 U/L (7-40); Albumin 3.8 g/dL (3.2-4.8); Alkaline Phosphatase 71 U/L (46-116); Anion Gap 14 (5-15); BUN/Creatinine Ratio 6.0 (10.0-20.0); Blood Urea Nitrogen 55 mg/dL (9-23); Calcium 9.0 mg/dL (8.7-10.4); Carbon Dioxide 27 mmol/L (20-31); Chloride 93 mmol/L (98-107); Glucose 131 mg/dL (74-106); Potassium 5.2 mmol/L (3.5-5.1); Sodium 134 mmol/L (136-145); Total Protein 7.1 g/dL (5.7-8.2)
[2025-03-05 12:43] LABS: Bilirubin, Total 0.3 mg/dL (0.2-1.0)
--- NOTE | 2025-03-05 14:28 | DVHPN2 ---
Progress Note - Dictate Date Seen: Mar 05, 2025 Has the PT tested + for MRSA If YES, has PT been informed?: No Medical Necessity Reason Pt with a Central, PICC or Fol: No vital signs Vital Sign Date Time Temp Pulse Resp B/P (MAP) Pulse Ox O2 Delivery O2 Flow Rate FiO2 03/05/25 13:54 94 16 145/56 03/05/25 11:56 99 03/05/25 08:39 98.5 98.5 03/05/25 08:30 Nasal Cannula* 6 44 Total Intake and Output 03/04/25 03/04/25 03/05/25 14:59 22:59 06:59 Intake Total 360 ml 400 ml Output Total 0 ml Balance 360 ml 400 ml medications Current Medications Medications Dose Ordered Sig/Nereyda Route Start Time Stop Time Status Last Admin Dose Admin Sodium Chloride 10 ml Q8HR IV 02/26/25 22:00 03/05/25 06:16 10 ML Ondansetron HCl 4 mg Q4HP PRN IV 02/26/25 15:30 03/03/25 18:25 4 MG Docusate Sodium 100 mg BIDPRN PRN PO 02/26/25 15:30 02/27/25 17:40 100 MG Acetaminophen 650 mg Q6HP PRN PO 02/26/25 15:30 03/03/25 10:11 650 MG Morphine Sulfate 2 mg Q4HPRN PRN IV 02/26/25 15:30 Hold Nitroglycerin 0.4 mg Q5MINP PRN SL 02/26/25 15:30 03/03/25 10:31 0.4 MG Morphine Sulfate 2 mg Q30M PRN IV 02/26/25 15:30 Bupropion HCl 150 mg DAILY PO 02/27/25 10:00 03/05/25 11:06 150 MG Clonidine HCl 0.1 mg Q8HPRN PRN PO 02/26/25 15:30 03/04/25 00:45 0.1 MG Duloxetine HCl 30 mg DAILY PO 02/27/25 10:00 03/05/25 11:07 30 MG Acetaminophen/ Hydrocodone Bitart 1 tab BID PRN PO 02/26/25 15:30 03/02/25 10:41 1 TAB Meclizine HCl 25 mg BIDP PRN PO 02/26/25 15:30 02/27/25 17:36 25 MG Minoxidil 2.5 mg BID PO 02/26/25 22:00 03/04/25 22:41 2.5 MG Pantoprazole Sodium 40 mg DAILY PO 02/27/25 10:00 03/05/25 11:07 40 MG Trazodone HCl 50 mg HS PO 02/26/25 22:00 03/04/25 22:42 50 MG Aspirin 81 mg DAILY PO 02/27/25 10:00 03/05/25 11:07 81 MG Atorvastatin Calcium 80 mg HS PO 02/26/25 22:00 03/04/25 22:42 80 MG Patient Own Medication 1 tab BID PO 02/26/25 22:00 Hold Donepezil HCl 5 mg DAILY PO 02/27/25 10:00 03/05/25 11:06 5 MG Ipratropium [place] 0.5 mg Q4HPRN PRN NEB 02/26/25 16:15 03/05/25 11:47 0.5 MG Albuterol 2.5 mg Q4HPRN PRN NEB 02/26/25 16:15 03/05/25 11:47 2.5 MG Diagnostic Test (Pha) 1 strip ACHS 02/26/25 22:00 03/05/25 11:30 1 STRIP Insulin Human Regular HS SC 02/26/25 22:00 03/04/25 22:45 2 UNITS Insulin Human Regular AC SC 02/27/25 07:00 03/05/25 12:00 2 UNITS Dextrose 50 ml UD PRN IV 02/26/25 17:15 Doxycycline Hyclate 100 ml @ 50 mls/hr Q12H IV 02/28/25 11:00 03/04/25 22:45 50 MLS/HR Enteral Nutritional Formula 240 ml TIDWM PO 02/28/25 12:00 03/05/25 12:00 240 ML Lactulose 30 ml DAILYPRN PRN PO 03/01/25 10:00 03/04/25 17:47 30 ML Hydromorphone HCl 0.5 mg Q4HPRN PRN IV 03/03/25 11:45 03/05/25 13:54 0.5 MG Ceftazidime/ Dextrose 0.5 gm/ Sodium Chloride 50 ml @ 50 mls/hr DAILY IV 03/04/25 10:00 03/04/25 11:28 50 MLS/HR Nifedipine 60 mg BID PO 03/04/25 22:00 03/04/25 22:42 60 MG Hydralazine HCl 25 mg Q12HR PO 03/04/25 22:00 03/04/25 22:41 25 MG Furosemide 20 mg DAILY PO 03/06/25 10:00 Heparin Sodium (Porcine) 5,000 units Q12HR SC 03/05/25 22:00 laboratory and microbiology Laboratory Tests 03/05/25 11:57 Test 03/05/25 11:57 Range/Units Serum Glucose 131 H 74-106 mg/dL Assessment/Plan Acute on chronic hypoxic respiratory failure Elevated troponin Pulmonary edema Pulmonary vascular congestion End-stage renal disease on hemodialysis Can not rule out underlying pneumonia Events: On 8 LPM NC No new complaints Labs and imaging reviewed Plan: Supplemental oxygen Titrate to keep O2 saturation above 92%. Complete antibiotic course. Sputum cultures grew moderate yeast, few GPC and few gram positive rods. MRSA negative Bronchodilators Monitor renal function Hemodialysis per nephrology Monitor electrolytes Supplement as necessary. Monitor ins and outs Arrange for stationary concentrator at home that goes up to 10 L/min Social work Services consultation placed GI prophylaxis-Protonix Dietary Evaluation Review Comments: Encourage and monitor PO intake to meet his needs Reinforce dietary sodium restrition Monitor cholesterol levels Expected Outcomes/Goals: No wt loss, fluid/electolyte in balance Plan discussed with: Patient JASON GUSTAFSON MD Mar 05, 2025 14:28
[2025-03-05] MEDS: FUROSEMIDE 20 MG TAB PO ONE (15:08)
[2025-03-05] MEDS: IOHEXOL 350 MG/ML 100ML IJ ONE (15:09)
--- NOTE | 2025-03-05 15:09 | ECG ---
[facility] Test Date: 2025-03-03 Test Time: 07:07:28 Pat Name: LIZBETH LU Department: Room: 0275T B Gender: M [employer]ent [employer]: SHERRILL : 1945 Requested By: GERMAINE ULLOA Order Number: [id number] Reading MD: Noah Alan Measurements Intervals [place] Rate: 79 P: -5 MA: 207 QRS: 225 QRSD: 159 T: 37 QT: 420 QTc: 482 Interpretive Statements Sinus rhythm Nonspecific intraventricular conduction delay Anteroseptal infarct, age indeterminate Baseline wander in lead(s) V2,V3 Electronically Signed On 03-06-2025 15:05:16 PDT by Noah Alan Please click the below link to view image of tracing.
--- NOTE | 2025-03-05 15:09 | ECG ---
[facility] Test Date: 2025-03-03 Test Time: 10:24:38 Pat Name: LIZBETH LU Department: Room: 0275T B Gender: M Service Person: pk : 1945 Requested By: GERMAINE ULLOA Order Number: [id number] Reading MD: Noah Alan Measurements Intervals [place] Rate: 80 P: 26 CT: 212 QRS: -67 QRSD: 154 T: 29 QT: 433 QTc: 500 Interpretive Statements Sinus rhythm Borderline prolonged CT interval RBBB and LAFB Electronically Signed On 03-06-2025 15:05:21 PDT by Noah Alan Please click the below link to view image of tracing.
--- NOTE | 2025-03-05 15:53 | DVH ---
CLINICAL HISTORY: R/O DVT TECHNIQUE: Color and duplex doppler imagine of the bilateral lower extremity veins was performed. Ves naveen compression and augmentation if possible was also performed. COMPARISON: US BI LAT UPPER DVT on DOS: 03/05/25, US BILAT LOWER DVT on DOS: 11/29/24, US BI LAT UPPER DVT on DOS: 11/29/24, US BILAT LOWER DVT on DOS: 06/05/24, US BI LAT UPPER DVT on DOS: 02/19/24 FINDINGS: Right Lower Extremity: Right common femoral vein: Normal compressibility and flow. Right superficial femoral vein: Normal compressibility and flow. Right popliteal vein: Normal compressibility and flow. Proximal calf veins demonstrate flow. Left Lower Extremity: Left common femoral vein: Normal compressibility and flow. Left superficial femoral vein: Normal compressibility and flow. Left popliteal vein: Normal compressibility and flow. Proximal calf veins demonstrate flow. IMPRESSION: NO SONOGRAPHIC EVIDENCE FOR DEEP VENOUS THROMBOSIS IN THE BILATERAL LOWER EXTREMITY VEINS.
--- NOTE | 2025-03-05 16:00 | DVH ---
CLINICAL HISTORY: Rule out PE TECHNIQUE: CT angiogram of the chest was performed with intravenous contrast. 3D MIP reconstructed i mages were created and archived on the PACS system. This exam was performed according to our [facility] dose optimization program. Up-to-date CT equipment and radiation dose reduction techniques are u tilized as appropriate. 23.68 CTDI: 23.68 DLP: 56 WID: COMPARISON: CT CT ANGIO CHEST CONTRAST on DOS: 11/30/24 FINDINGS: Lower Neck: There is bilateral supraclavicular lymphadenopathy. Axilla, Mediastinum and Cathleen: Mildly prominent bilateral axillary lymph nodes. There is mild mediasti nal lymphadenopathy. There is bilateral hilar lymphadenopathy. Heart and Great Vessels: Mild cardiomegaly without pericardial effusion. Lead less pacer in the right ventricle. Mild aortic valve calcifications. Dery-ub-skramrqd 3-vessel calcified coronary artery dis ease. The thoracic aorta is normal in caliber containing mild mixed atherosclerotic plaque. There is no central no central, segmental, or subsegmental pulmonary artery filling defects are seen to sugge st pulmonary embolism. Airway, Lungs and Pleura: Trachea and central airways are patent. There is interlobular septal thicke marquis in the lungs. Scattered linear and dependent consolidations in the lungs. Small bilateral pleura l effusions. Chest Wall and Osseous Structures: Mild multilevel thoracic spondylosis. No destructive osseous lesio n. There is mild symmetric bilateral gynecomastia. There is chest wall edema. Upper abdomen: There are small bilateral renal hypodensities not optimally evaluated on this study th ough may reflect cysts. There is a cystic lesion seen in the tail of the pancreas measuring 3.2 x 4.2 cm series 3, image 120. IMPRESSION: 1. No evidence of pulmonary embolism. 2. CHF/ volume overload, with interstitial pulmonary edema, small bilateral pleural effusions, chest wall edema, and mild cardiomegaly. 3. Ndbt-et-bnhcaogg 3-vessel calcified coronary artery disease and mild aortic valve calcification. 4. Bilateral hilar, mediastinal, and supraclavicular lymphadenopathy, nonspecific though could be allie ctive or passive congestion. Consider follow-up CT in 3 months to re-evaluate this finding. 5. Persistent cystic mass in the tail of the pancreas without significant change. Follow-up MRI was p reviously recommended on 11/30/2024
--- NOTE | 2025-03-05 16:22 | DVH ---
CLINICAL HISTORY: DVT TECHNIQUE: Color and duplex doppler imaging of the bilateral upper extremity veins and subclavian vei n was performed. Vessel compression if possible was also performed. WID: COMPARISON: US BILAT LOWER DVT on DOS: 03/05/25, US BILAT LOWER DVT on DOS: 11/29/24, US BI LAT UPPER D VT on DOS: 11/29/24 FINDINGS: Occlusive hypoechoic thrombus in the right upper extremity internal jugular vein. There is a hypoecho ic occlusive thrombus in the left upper extremity in the basilic vein. The left internal jugular, axi llary, right basilic, cephalic, and paired brachial veins are patent and demonstrate normal compressi bility and flow. The subclavian veins bilaterally are patent. Lateral to the right upper extremity axillary vein there is a indeterminate hypoechoic structure ramo uring 4.9 x 1.0 x 1.8 cm. IMPRESSION: 1. Positive for Acute appearing deep vein thrombus in the right upper extremity internal jugular vein . 2. Positive for Acute Occlusive superficial femoral vein thrombus in the left upper extremity basilic vein. 3. Indeterminate hypoechoic structure adjacent to the right axillary vein which could reflect an inde terminate lymph node. Follow-up was recommended on the separately dictated same day CTA chest.
[2025-03-05 18:09] LABS: Hematocrit 22.3 % (41.0-53.0); Hemoglobin 7.5 g/dL (13.5-17.5); Mean Corpuscular Hemoglobin 32.0 pg (28.0-32.0); Mean Corpuscular Volume 95.8 fL (80.0-100.0); Nucleated Red Blood Cells % 0.0 %
[2025-03-05 18:45] LABS: INR 1.03 (0.9-1.15); Partial Thromboplastin Time 30.8 SEC (24.5-34.5); Prothrombin Time 10.9 sec (9.3-11.8)
--- NOTE | 2025-03-05 18:50 | CONS ---
Pharmacy Clinical Information: HEPARIN DRIP PER RX PROTOCOL SPOKE TO HANS PARRY REGARDING TO NEW HEPARIN DRIP ORDER aPTT IS PENDING BOLUS 5600 UNITS IVP X1 INITIAL HEPARIN DRIP RATE 1300 UNITS/HR HANS PARRY READ BACK BOLUS 5600 UNITS IVP X1, FOLLOW BY HEPARIN DRIP RATE 1300 UNITS/HR TIGIST Begum Mar 05, 2025 18:50
--- NOTE | 2025-03-05 19:33 | DVHPN2 ---
Progress Note - Dictate Date Seen: Mar 05, 2025 Has the PT tested + for MRSA If YES, has PT been informed?: No Medical Necessity Reason Pt with a Central, PICC or Fol: No Subjective Patient was seen and evaluated in follow up. No acute events overnight. Patient denies any new complaints. On 8L NC. Hemodialysis is scheduled. Duplex doppler imaging of bilateral upper extremity veins reported positive for acute appearing deep vein thrombus in the right upper extremity internal jugular vein; positive for acute occlusive superficial femoral vein thrombus in the left upper extremity basilic vein; indeterminate hypoechoic structure adjacent to the right axillary vein which could reflect an indeterminate lymph node. CT Angio Chest reported no evidence of pulmonary embolism; CHF/ volume overload, with interstitial pulmonary edema, small bilateral pleural effusions, chest wall edema, and mild cardiomegaly; pqrp-uh-dlbppafr 3-vessel calcified coronary artery disease and mild aortic valve calcification; bilateral hilar, mediastinal, and supraclavicular lymphadenopathy, nonspecific though could be reactive or passive congestion; persistent cystic mass in the tail of the pancreas without significant change. vital signs Vital Sign Date Time Temp Pulse Resp B/P (MAP) Pulse Ox O2 Delivery O2 Flow Rate FiO2 03/05/25 17:00 98.7 76 20 136/63 (87) 95 98.7 03/05/25 10:00 Simple Mask* 6 50 Total Intake and Output 03/04/25 03/04/25 03/05/25 15:00 23:00 07:00 Intake Total 360 ml 400 ml Output Total 0 ml Balance 360 ml 400 ml medications Current Medications Medications Dose Ordered Sig/Nereyda Route Start Time Stop Time Status Last Admin Dose Admin Sodium Chloride 10 ml Q8HR IV 02/26/25 22:00 03/05/25 14:00 10 ML Ondansetron HCl 4 mg Q4HP PRN IV 02/26/25 15:30 03/03/25 18:25 4 MG Docusate Sodium 100 mg BIDPRN PRN PO 02/26/25 15:30 02/27/25 17:40 100 MG Acetaminophen 650 mg Q6HP PRN PO 02/26/25 15:30 03/03/25 10:11 650 MG Morphine Sulfate 2 mg Q4HPRN PRN IV 02/26/25 15:30 Hold Nitroglycerin 0.4 mg Q5MINP PRN SL 02/26/25 15:30 03/03/25 10:31 0.4 MG Morphine Sulfate 2 mg Q30M PRN IV 02/26/25 15:30 Bupropion HCl 150 mg DAILY PO 02/27/25 10:00 03/05/25 11:06 150 MG Clonidine HCl 0.1 mg Q8HPRN PRN PO 02/26/25 15:30 03/04/25 00:45 0.1 MG Duloxetine HCl 30 mg DAILY PO 02/27/25 10:00 03/05/25 11:07 30 MG Acetaminophen/ Hydrocodone Bitart 1 tab BID PRN PO 02/26/25 15:30 03/02/25 10:41 1 TAB Meclizine HCl 25 mg BIDP PRN PO 02/26/25 15:30 02/27/25 17:36 25 MG Minoxidil 2.5 mg BID PO 02/26/25 22:00 03/04/25 22:41 2.5 MG Pantoprazole Sodium 40 mg DAILY PO 02/27/25 10:00 03/05/25 11:07 40 MG Trazodone HCl 50 mg HS PO 02/26/25 22:00 03/04/25 22:42 50 MG Aspirin 81 mg DAILY PO 02/27/25 10:00 03/05/25 11:07 81 MG Atorvastatin Calcium 80 mg HS PO 02/26/25 22:00 03/04/25 22:42 80 MG Patient Own Medication 1 tab BID PO 02/26/25 22:00 Hold Donepezil HCl 5 mg DAILY PO 02/27/25 10:00 03/05/25 11:06 5 MG Ipratropium [place] 0.5 mg Q4HPRN PRN NEB 02/26/25 16:15 03/05/25 11:47 0.5 MG Albuterol 2.5 mg Q4HPRN PRN NEB 02/26/25 16:15 03/05/25 11:47 2.5 MG Diagnostic Test (Pha) 1 strip ACHS 02/26/25 22:00 03/05/25 17:29 1 STRIP Insulin Human Regular HS SC 02/26/25 22:00 03/04/25 22:45 2 UNITS Insulin Human Regular AC SC 02/27/25 07:00 03/05/25 17:26 2 UNITS Dextrose 50 ml UD PRN IV 02/26/25 17:15 Doxycycline Hyclate 100 ml @ 50 mls/hr Q12H IV 02/28/25 11:00 03/04/25 22:45 50 MLS/HR Enteral Nutritional Formula 240 ml TIDWM PO 02/28/25 12:00 03/05/25 12:00 240 ML Lactulose 30 ml DAILYPRN PRN PO 03/01/25 10:00 03/04/25 17:47 30 ML Hydromorphone HCl 0.5 mg Q4HPRN PRN IV 03/03/25 11:45 03/05/25 13:54 0.5 MG Ceftazidime/ Dextrose 0.5 gm/ Sodium Chloride 50 ml @ 50 mls/hr DAILY IV 03/04/25 10:00 03/04/25 11:28 50 MLS/HR Nifedipine 60 mg BID PO 03/04/25 22:00 03/04/25 22:42 60 MG Hydralazine HCl 25 mg Q12HR PO 03/04/25 22:00 03/04/25 22:41 25 MG Furosemide 20 mg DAILY PO 03/06/25 10:00 Heparin Sodium/ Dextrose 250 ml @ 13 mls/hr [id number] IV 03/05/25 17:15 objective Vitals and nursing notes reviewed. General Appearance: In no acute distress. HEENT: Atraumatic, PERRLA, Mucous membr. moist/pink Respiratory: Decreased air entry bilaterally. No wheezing. Cardiovascular: Regular rate, Normal S1, Normal S2 Abdominal: Normal bowel sounds, Soft, No tenderness Extremities: No clubbing, No cyanosis, No edema, Normal pulses, Other (right arm fistula) Skin: No rashes, No breakdown, No significant lesion Neuro: Alert, Oriented X3, Normal speech Psych/Mental Status: Mental status NL, Mood NL laboratory and microbiology Laboratory Tests 03/05/25 17:46 03/05/25 11:57 Test 03/05/25 11:57 Range/Units Serum Glucose 131 H 74-106 mg/dL Problem List Acute hypoxic respiratory failure Chest pain Elevated troponin ESRD on HD Assessment/Plan Agree with current supportive medical care. Cardiology and Pulmonary Medicine following. Supplemental oxygen to keep sats >92%. Started on Heparin drip. Daily lab monitoring. HD- 03/05- UF 2-3L as tolerated. IV antibiotics. Renal diet. Additional plan as per the hospital course. Dietary Evaluation Review Comments: Encourage and monitor PO intake to meet his needs Reinforce dietary sodium restrition Monitor cholesterol levels Expected Outcomes/Goals: No wt loss, fluid/electolyte in balance Plan discussed with: Patient, Other (RN) HARJINDER RUTHERFORD DO Mar 05, 2025 19:33
[2025-03-05] MEDS: HEPARIN SODIUM (PORCINE) 5000 UNITS/ML 1ML VIAL IV ONE (20:15)
[2025-03-05] MEDS: HEPARIN DRIP/D5W 100UNITS/ML 250 ML IV SCH (20:21)
[2025-03-05] MEDS ORDERED: HEPARIN SODIUM (PORCINE) 5000 UNITS/ML 1ML VIAL SC SCH (22:00)
[2025-03-06] VITALS (11 sets, daily range): BP systolic 137–163; BP diastolic 68–75; PULSE 74–78; RESP 16–20; TEMP 97.8–98.7; O2SAT 94–100
[2025-03-06 06:10] LABS: Hematocrit 22.1 % (41.0-53.0); Hemoglobin 7.6 g/dL (13.5-17.5); Mean Corpuscular Hemoglobin 32.7 pg (28.0-32.0); Mean Corpuscular Volume 95.6 fL (80.0-100.0); Nucleated Red Blood Cells % 0.0 %
[2025-03-06 07:10] LABS: INR 1.14 (0.9-1.15); Prothrombin Time 11.9 sec (9.3-11.8)
[2025-03-06 07:43] LABS: Partial Thromboplastin Time > 139.0 SEC (24.5-34.5)
--- NOTE | 2025-03-06 07:44 | DVHPN2 ---
Progress Note - Dictate Date Seen: Mar 06, 2025 Has the PT tested + for MRSA If YES, has PT been informed?: No Medical Necessity Reason Pt with a Central, PICC or Fol: No vital signs Vital Sign Date Time Temp Pulse Resp B/P (MAP) Pulse Ox O2 Delivery O2 Flow Rate FiO2 03/06/25 05:00 98.7 75 18 137/72 (93) 94 98.7 03/05/25 20:00 Nasal Cannula* 6 44 Total Intake and Output 03/05/25 03/05/25 03/06/25 15:00 23:00 07:00 Intake Total 360 ml 400 ml Output Total 200 ml Balance 160 ml 400 ml medications Current Medications Medications Dose Ordered Sig/Nereyda Route Start Time Stop Time Status Last Admin Dose Admin Sodium Chloride 10 ml Q8HR IV 02/26/25 22:00 03/06/25 05:46 10 ML Ondansetron HCl 4 mg Q4HP PRN IV 02/26/25 15:30 03/03/25 18:25 4 MG Docusate Sodium 100 mg BIDPRN PRN PO 02/26/25 15:30 02/27/25 17:40 100 MG Acetaminophen 650 mg Q6HP PRN PO 02/26/25 15:30 03/03/25 10:11 650 MG Morphine Sulfate 2 mg Q4HPRN PRN IV 02/26/25 15:30 Hold Nitroglycerin 0.4 mg Q5MINP PRN SL 02/26/25 15:30 03/03/25 10:31 0.4 MG Morphine Sulfate 2 mg Q30M PRN IV 02/26/25 15:30 Bupropion HCl 150 mg DAILY PO 02/27/25 10:00 03/05/25 11:06 150 MG Clonidine HCl 0.1 mg Q8HPRN PRN PO 02/26/25 15:30 03/04/25 00:45 0.1 MG Duloxetine HCl 30 mg DAILY PO 02/27/25 10:00 03/05/25 11:07 30 MG Acetaminophen/ Hydrocodone Bitart 1 tab BID PRN PO 02/26/25 15:30 03/02/25 10:41 1 TAB Meclizine HCl 25 mg BIDP PRN PO 02/26/25 15:30 02/27/25 17:36 25 MG Minoxidil 2.5 mg BID PO 02/26/25 22:00 03/05/25 21:29 2.5 MG Pantoprazole Sodium 40 mg DAILY PO 02/27/25 10:00 03/05/25 11:07 40 MG Trazodone HCl 50 mg HS PO 02/26/25 22:00 03/05/25 21:28 50 MG Aspirin 81 mg DAILY PO 02/27/25 10:00 03/05/25 11:07 81 MG Atorvastatin Calcium 80 mg HS PO 02/26/25 22:00 03/05/25 21:29 80 MG Patient Own Medication 1 tab BID PO 02/26/25 22:00 Hold Donepezil HCl 5 mg DAILY PO 02/27/25 10:00 03/05/25 11:06 5 MG Ipratropium [place] 0.5 mg Q4HPRN PRN NEB 02/26/25 16:15 03/05/25 11:47 0.5 MG Albuterol 2.5 mg Q4HPRN PRN NEB 02/26/25 16:15 03/05/25 11:47 2.5 MG Diagnostic Test (Pha) 1 strip ACHS 02/26/25 22:00 03/06/25 05:47 1 STRIP Insulin Human Regular HS SC 02/26/25 22:00 03/05/25 21:53 2 UNITS Insulin Human Regular AC SC 02/27/25 07:00 03/05/25 17:26 2 UNITS Dextrose 50 ml UD PRN IV 02/26/25 17:15 Doxycycline Hyclate 100 ml @ 50 mls/hr Q12H IV 02/28/25 11:00 03/04/25 22:45 50 MLS/HR Enteral Nutritional Formula 240 ml TIDWM PO 02/28/25 12:00 03/05/25 20:22 240 ML Lactulose 30 ml DAILYPRN PRN PO 03/01/25 10:00 03/04/25 17:47 30 ML Hydromorphone HCl 0.5 mg Q4HPRN PRN IV 03/03/25 11:45 03/05/25 13:54 0.5 MG Ceftazidime/ Dextrose 0.5 gm/ Sodium Chloride 50 ml @ 50 mls/hr DAILY IV 03/04/25 10:00 03/04/25 11:28 50 MLS/HR Nifedipine 60 mg BID PO 03/04/25 22:00 03/05/25 21:29 60 MG Hydralazine HCl 25 mg Q12HR PO 03/04/25 22:00 03/05/25 21:30 25 MG Furosemide 20 mg DAILY PO 03/06/25 10:00 Heparin Sodium/ Dextrose 250 ml @ 13 mls/hr [id number] IV 03/05/25 17:15 03/05/25 20:21 13 MLS/HR laboratory and microbiology Laboratory Tests 03/06/25 05:43 03/05/25 11:57 Test 03/05/25 11:57 Range/Units Serum Glucose 131 H 74-106 mg/dL Assessment/Plan This is an 79-year old male known outside to our practice who initially presented 02/26/2025 with reported shortness of breath and chest discomfort. Patient himself does have underlying history of chronic respiratory failure on home oxygen therapy and reports indicate on the day of initial presentation, patient had went for routine testing outside within our practice and had been reported to have oxygen saturations within the 50% range despite use of his portable oxygen concentrator which EMS had been called and patient was later transported to present facility for further evaluation and management. Throughout course of present admission patient had been admitted with acute on chronic hypoxic respiratory failure which patient does have known history of COPD and has been managed by pulmonology services throughout present hospital course. Chest imaging had revealed evidence for pulmonary vascular congestion which patient does have underlying history of chronic diastolic heart failure with last known LVEF of 60% as per Echocardiogram findings 11/28/2024. Right ventricular systolic pressure at that time was noted to be 55mmHg consistent with underlying pulmonary hypertension which it is further noted patient himself does have history of ESRD on hemodialysis for which fluid volume is managed by Nephrology services via hemodialysis. Patient does have underlying anemia. Serial high sensitive troponins have revealed flat/mild elevation with a peak level of 112 that had subsequently revealed gradual downtrend. 12-lead electrocardiogram had revealed sinus rhythm, first degree AVB, right bundle branch block, prolonged QTC, however with no evidence for acute ischemic changes. Of note, patient does have underlying history of coronary artery disease and is status post previous PCI with PERLA x 1 involving ostial LAD 08/04/2023. Cardiac catheterization at that time had revealed presence of a patent stent involving mLAD as well as type II pulmonary hypertension. Patient does have known history of previously provoked DVT involving subclavian/neck and had been on low-dose Xarelto as outpatient however upon review of outside records, AC therapy had recently been discontinued and patient has been kept on low-dose Aspirin given previous PCI. Of note, throughout course of present admission, it is notable that patient has been observed to have transient hypertensive events consistent with hypertensive urgency which could have attributed to patients intermittent chest pains. Despite the above, at present time of consultation, patient himself reports chest pain has now subsided. Denies any palpitations, dizziness, syncope, or any further cardiac related symptoms. Cardiology services were involved late within the admission (on ) by primary team request for cardiac aspects of care. Past medical history includes end-stage renal disease on hemodialysis, old history of CVA (2018), poor functional capacity, coronary artery disease and status post PCI (last stent in July 2023, ostial LAD), COPD, obstructive sleep apnea, diabetes mellitus, hypertension, anemia (history of repeated transfusions), D-CHF, SVT, pulmonary hypertension (considered type 2), history of pancytopenia (resolved later), history of DVT in upper extremity, dementia, old history of underlying RBBB, peripheral artery disease, right external iliac artery aneurysm, history of CDT colitis, repeated/significant GI bleedings, 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 Past medical history also includes DVT in the right upper extremity, history of septic shock, history of pneumonia, sick sinus syndrome and status post pacemaker (Micra/Medtronic) implantation. Echocardiogram of November 28, 2024 revealed Left ventricle: Mild concentric left ventricular hypertrophy was seen. LVEF was around 60%. There was no gross wall motion abnormality. Pseudo normal LV diastolic dysfunction was observed. Right ventricle: Right ventricle was dilated with preserved systolic function. Both atria were dilated. Aortic valve: Aortic sclerosis with no stenosis was observed. Mild aortic insufficiencywas seen. There was mild mitral regurgitation. There was psvv-fy-wrlyqwne tricuspid regurgitation. Pulmonary valve was not well visualized. Right ventricular systolic pressure was assessed at 55 mm Hg. There was no pericardial effusion. Echocardiogram of 2024 revealed: EF of 60%, pseudonormal LV filling, dilated RV, VIVIANA, mild AI, Mild MR, mild to moderate TR and RVSP of 55 mmHg. Echocardiogram of September 11, 2024 (performed in the office) reported ejection fraction of 55-60%, pseudo-normal left ventricular diastolic dysfunction, mild biatrial enlargement, mild mitral regurgitation, tricuspid regurgitation, atrial insufficiency, mild mitral annular calcification and right ventricular systolic pressure of less than 35 mm Hg Echocardiogram of June 05, 2024 reported mild concentric left ventricular hypertrophy, ejection fraction of 45-50%, mild biatrial enlargement, mild aortic insufficiency/tricuspid regurgitation/trace mitral regurgitation. Right ventricular systolic pressure of 48 mm Hg. Echocardiogram of January 2024 had revealed: Ejection fraction of 40-45%, anterior/anteroseptal hypokinesia, biatrial enlargement, right ventricular systolic pressure 45 mm Hg. Echocardiogram October 28, 2023 had revealed mild concentric left ventricular hypertrophy, LVEF of 52% with mild diffuse hypokinesis, dilated RV/LA/RA, utfr-mw-rqosyblq aortic insufficiency, mild MR, moderate TR and right ventricular systolic pressure of 60 mm Hg Echocardiogram of November 08, 2023 (performed in [facility]) had reported: LVEF of 50%, [id number]-gl-[id number] TR, mild aortic insufficiency and right ventricular systolic pressure of 49 mm Hg Echocardiogram of September 15, 2023 (performed and [facility]) revealed ejection fraction of 45-50% Echocardiogram of March 22, 2023 (performed in the office) revealed ejection fraction of 65-70%, mild concentric left ventricular hypertrophy, moderate biatrial enlargement, hdgn-ky-bbbbeogv MR/TR, mild AI/PI and right ventricular systolic pressure of 66 mm Hg. Left heart catheterization on August 04, 2023 revealed: 1 vessel coronary artery disease and status post PCI (drug-eluting stent deployment of ostial LAD, LVEF of 60% with increased LVEDP, patent stent in mid LAD, type 2 pulmonary hypertension. CTA of lungs: 1. No evidence of pulmonary embolism. 2. CHF/ volume overload, with interstitial pulmonary edema, small bilateral pleural effusions, chest wall edema, and mild cardiomegaly. 3. Wosi-za-cdeqqolb 3-vessel calcified coronary artery disease and mild aortic valve calcification. 4. Bilateral hilar, mediastinal, and supraclavicular lymphadenopathy, nonspecific though could be reactive or passive congestion. Consider follow-up CT in 3 months to re-evaluate this finding. 5. Persistent cystic mass in the tail of the pancreas without significant change. Follow-up MRI was previously recommended on 11/30/2024 Venous duplex of bilateral lower ext: IMPRESSION: NO SONOGRAPHIC EVIDENCE FOR DEEP VENOUS THROMBOSIS IN THE BILATERAL LOWER EXTREMITY VEINS. Venous duplex of bilateral upper ext: IMPRESSION: 1. Positive for Acute appearing deep vein thrombus in the right upper extremity internal jugular vein. 2. Positive for Acute Occlusive superficial femoral vein thrombus in the left upper extremity basilic vein. 3. Indeterminate hypoechoic structure adjacent to the right axillary vein which could reflect an indeterminate lymph node. Follow- up was recommended on the separately dictated same day CTA chest. ASSESSMENT: Acute hypoxemic respiratory failure Acute on chronic diastolic heart failure Concern for underlying COPD exacerbation Fluid overload, with known history of ESRD on HD Underlying history of type II pulmonary hypertension Anemia of chronic disease, in the setting of ESRD on HD Uncontrolled hypertension with evidence for hypertensive urgency Minimal/flat elevation of HS troponins, assessed to reflect type II physiology due to above Coronary artery disease, status post previous PCI's x 2 Presence of Medtronic Micra permanent pacemaker Previous history of provoked DVT Old history of underlying RBBB Old history of previous CVA Obstructive sleep apnea Diabetes mellitus Hyperlipidemia DVT: upper ext CARDIAC SUGGESTION FOR MANAGEMENT: Awaiting device interrogation (MDT) Recognizing clinical presentation/objective findings, ACS at this point is not considered Minimal/flat elevation of HS troponins are assessed to reflect type II physiology at this point No indication warranted for repeat ischemic workup at present time of admission Proceed with optimized medical therapy and aggressive risk factor modification Fluid volume management as per nephrology services via hemodialysis Proceed with close observation for overt signs of fluid overload Proceed with strict intakes, outputs, and daily weights Proceed with supplemental oxygen as warranted On empiric IV antibiotic therapy as per primary Avoidance of QTC prolonging agents advised Follow up Pulmonology recommendations Hydralazine 25mg twice daily Atorvastatin 40mg once daily Nifedipine 60mg once daily Aspirin 81mg once daily Oral Lasix On Heparin drip for now, may consider oral AC when stable Evaluation and management of pancreatic findings as per primary team Consider GI/surgery evaluation for pancreatic tail cystic mass Consider Imaging of pancreas: MRI (as suggested by Radiology). PM is MRI conditional. Management of concurrent medical conditions per primary team Management of comorbidities as per primary team Proceed with close rate and rhythm surveillance Proceed with close hemodynamic surveillance Proceed with optimized blood pressure control Transfuse to sustain HGB level above 7.0 Sustain Magnesium level greater than 2.0 Sustain Potassium level greater than 4.0 Follow up renal function and electrolytes Management in telemetry Follow up seo consultant recommendations Will proceed to follow from a cardiac perspective Further recommendations per clinical progression All available diagnostic labs, EKG's, and images were personally reviewed Plan of care discussed with and agreed upon by patient / primary RN Prognosis: Guarded Thank you for allowing me to participate in the care of this patient. Further recommendations based on patients clinical course and progression, primary attending, and other consultants. Will continue to follow with primary attending. If you have any questions or concerns, please do not hesitate to contact me. A total of 55 minutes was spent reviewing the patient record, examining the patient, making a diagnostic and therapeutic plan, discussing this plan with medical personnel, following up on diagnostic studies and following the patient for clinical stability excluding any and all procedures. At least 50% of this time was spent in direct, samy-om-tqea contact. Dietary Evaluation Review Comments: Encourage and monitor PO intake to meet his needs Reinforce dietary sodium restrition Monitor cholesterol levels Expected Outcomes/Goals: No wt loss, fluid/electolyte in balance Plan discussed with: Patient, Other (nurse) NICOLE KERNS MD Mar 06, 2025 07:44
[2025-03-06] MEDS: HEPARIN DRIP/D5W 100UNITS/ML 250 ML IV SCH (09:00)
--- NOTE | 2025-03-06 09:37 | CONS ---
Pharmacy Clinical Information: HEPARIN PER RX PROTOCOL SPOKE TO HANS Fajardo REGARDING heparin dose change Current dose: 1300 units/hr CURRENT aPTT: >139 on 03/06/2025 at 05:43 HANS Fajardo held heparin drip at 07:45 on 03/06/2025 BOLUS: no Decrease heparin drip rate (new dose): 1000 units/hr Date and time new dose started: 03/06/2025 at 09:00 Next aPTT: 02/28/2025 at 15:00 HANS Fajardo READ BACK NEW DOSE: 1000 UNITS/HR TIGIST Begum Mar 06, 2025 09:37
[2025-03-06] MEDS ORDERED: ENOXAPARIN SOD 40 MG/0.4 ML SYRINGE SC SCH (10:00)
--- NOTE | 2025-03-06 10:28 | DVHPN2 ---
Subjective The patient is seen and examined at bedside. Complains of shortness of breath still. Reviewed: Care Plan, H&P, Labs, Medications, Previous Orders, Radiology Changes from previous H/P or p: No Changes Eyes: No Pain, No Vision change, No Conjunctivae inflammation, No Eyelid inflammation, No Other, No Redness ENT: No Ear pain, No Ear discharge, No Nose pain, No Nose discharge, No Nose congestion, No Mouth pain, No Mouth swelling, No Throat pain, No Throat swelling, No Other Cardiovascular: Chest Pain; No Palpitations, No Orthopnea, No Paroxysmal Noc. Dyspnea, No Edema, No Lt Headedness, No Other Respiratory: No Cough, No Dry; Shortness of breath, SOB with excertion; No Wheezing, No Hemoptysis, No Pleuritic Pain, No Sputum, No Other Gastrointestinal: No Nausea, No Vomiting, No Abdominal Pain, No Diarrhea, No Constipation, No Melena, No Hematochezia, No Other Genitourinary: No Dysuria, No Frequency, No Incontinence, No Hematuria, No Retention, No Other Musculoskeletal: No other, No neck pain, No shoulder pain, No arm pain, No back pain, No hand pain, No leg pain, No foot pain Skin: No Rash, No Lesions, No Jaundice, No Bruising, No Other Objective Vitals Vital Signs Date Time Temp Pulse Resp B/P (MAP) Pulse Ox O2 Delivery O2 Flow Rate FiO2 03/06/25 09:07 95 Simple Mask* 10 99 03/06/25 09:00 98.0 75 20 153/70 (97) 98.0 Intake/Output Intake and Output 03/06/25 07:00 Intake Total 760 ml Output Total 200 ml Balance 560 ml Intake Oral 760 ml Output Urine Total 200 ml # Voids 1 General Appearance: Alert, Oriented X3 HEENT: Atraumatic, PERRLA, EOMI, Mucous membr. moist/pink Lungs: Clear to auscultation, Normal air movement Cardiovascular: Regular rate, Normal S1, Normal S2, No murmurs, Gallops, Rubs Abdomen: Normal bowel sounds, Soft, No tenderness Extremities: No edema Neuro: Cranial nerves 3-12 NL Psych/Mental Status: Mental status NL Medications Current Medications Medications Dose Ordered Sig/Nereyda Route Start Time Stop Time Status Last Admin Dose Admin Sodium Chloride 10 ml Q8HR IV 02/26/25 22:00 03/06/25 05:46 10 ML Ondansetron HCl 4 mg Q4HP PRN IV 02/26/25 15:30 03/03/25 18:25 4 MG Docusate Sodium 100 mg BIDPRN PRN PO 02/26/25 15:30 02/27/25 17:40 100 MG Acetaminophen 650 mg Q6HP PRN PO 02/26/25 15:30 03/03/25 10:11 650 MG Morphine Sulfate 2 mg Q4HPRN PRN IV 02/26/25 15:30 Hold Nitroglycerin 0.4 mg Q5MINP PRN SL 02/26/25 15:30 03/03/25 10:31 0.4 MG Morphine Sulfate 2 mg Q30M PRN IV 02/26/25 15:30 Bupropion HCl 150 mg DAILY PO 02/27/25 10:00 03/05/25 11:06 150 MG Clonidine HCl 0.1 mg Q8HPRN PRN PO 02/26/25 15:30 03/04/25 00:45 0.1 MG Duloxetine HCl 30 mg DAILY PO 02/27/25 10:00 03/05/25 11:07 30 MG Acetaminophen/ Hydrocodone Bitart 1 tab BID PRN PO 02/26/25 15:30 03/02/25 10:41 1 TAB Meclizine HCl 25 mg BIDP PRN PO 02/26/25 15:30 02/27/25 17:36 25 MG Minoxidil 2.5 mg BID PO 02/26/25 22:00 03/05/25 21:29 2.5 MG Pantoprazole Sodium 40 mg DAILY PO 02/27/25 10:00 03/05/25 11:07 40 MG Trazodone HCl 50 mg HS PO 02/26/25 22:00 03/05/25 21:28 50 MG Aspirin 81 mg DAILY PO 02/27/25 10:00 03/05/25 11:07 81 MG Atorvastatin Calcium 80 mg HS PO 02/26/25 22:00 03/05/25 21:29 80 MG Patient Own Medication 1 tab BID PO 02/26/25 22:00 Hold Donepezil HCl 5 mg DAILY PO 02/27/25 10:00 03/05/25 11:06 5 MG Ipratropium [place] 0.5 mg Q4HPRN PRN NEB 02/26/25 16:15 03/05/25 11:47 0.5 MG Albuterol 2.5 mg Q4HPRN PRN NEB 02/26/25 16:15 03/05/25 11:47 2.5 MG Diagnostic Test (Pha) 1 strip ACHS 02/26/25 22:00 03/06/25 05:47 1 STRIP Insulin Human Regular HS SC 02/26/25 22:00 03/05/25 21:53 2 UNITS Insulin Human Regular AC SC 02/27/25 07:00 03/05/25 17:26 2 UNITS Dextrose 50 ml UD PRN IV 02/26/25 17:15 Doxycycline Hyclate 100 ml @ 50 mls/hr Q12H IV 02/28/25 11:00 03/04/25 22:45 50 MLS/HR Enteral Nutritional Formula 240 ml TIDWM PO 02/28/25 12:00 03/05/25 20:22 240 ML Lactulose 30 ml DAILYPRN PRN PO 03/01/25 10:00 03/04/25 17:47 30 ML Hydromorphone HCl 0.5 mg Q4HPRN PRN IV 03/03/25 11:45 03/05/25 13:54 0.5 MG Ceftazidime/ Dextrose 0.5 gm/ Sodium Chloride 50 ml @ 50 mls/hr DAILY IV 03/04/25 10:00 03/04/25 11:28 50 MLS/HR Nifedipine 60 mg BID PO 03/04/25 22:00 03/05/25 21:29 60 MG Hydralazine HCl 25 mg Q12HR PO 03/04/25 22:00 03/05/25 21:30 25 MG Furosemide 20 mg DAILY PO 03/06/25 10:00 Heparin Sodium/ Dextrose 250 ml @ 10 mls/hr Q24H IV 03/06/25 09:00 Laboratory Results Laboratory Tests 03/05/25 11:57 03/06/25 05:43 Chemistry Test 03/05/25 11:57 Albumin 3.8 g/dL (3.2-4.8) Calcium Level 9.0 mg/dL (8.7-10.4) Total Protein 7.1 g/dL (5.7-8.2) Coagulation Test 03/05/25 11:57 03/05/25 17:46 03/06/25 05:43 D-Dimer, Quantitative 0.96 mg/L FEU (0.0-0.49) H Prothrombin Time 10.9 sec (9.3-11.8) 11.9 sec (9.3-11.8) H Prothrombin Time INR 1.03 (0.9-1.15) 1.14 (0.9-1.15) Activated Partial Thromboplast Time 30.8 SEC (24.5-34.5) > 139.0 SEC (24.5-34.5) *H LFT Test 03/05/25 11:57 Alanine Aminotransferase (ALT) < 9 U/L (7-40) Alkaline Phosphatase 71 U/L (46-116) Aspartate Amino Transferase (AST) 15 U/L (13-40) Total Bilirubin 0.3 mg/dL (0.2-1.0) Microbiology Microbiology Date/Time Source Procedure Growth Status 02/28/25 10:03 Sputum Gram Stain - Final Complete 02/28/25 10:03 Respiratory Culture - Final Enterobacter cloacae Complete 02/27/25 06:33 Nose MRSA Screen - Final Complete Labs and/or images reviewed: Labs reviewed by me Assessment/Plan Assessment/Plan Acute hypoxic respiratory failure, resolved Chronic respiratory failure on home O2 ESRD COPD DM2 HTN Mixed hyperlipidemia Elevated troponin probable 2nd to NSTEMI type 2 DVT of right upper extremities Superficial thrombus of left upper extremities. Pancreatic cystic mass. PLAN: Continue current management. Continue with Oxygen Continue HD per schedule Continue IV antibiotic. Waiting for propagation worker Waiting for sputum culture. Stat trop is elevated. Will check trop q6h x 3 Stat EKG Appreciate Material Analyst in put No further cardiac work up CTA of chest show no PE US show DVT of right UE with attach to lymph node. Start on heparin drip yesterday. Patient has limited access, so will switch to eliquis 2.5mg bid due to renal dose. DW patient and regarding to the lymph node and cystic mass. They [facility] for further work up on the mass. This medical document was created using an electronic medical record system with [employer] direct computerized dictation system. Although this document has been carefully reviewed, there may still be some phonetic and typographical errors. These areas are purely typographical due to imperfections of the software programs, and do not reflect any compromise in the patient's medical care. DW patient and . This medical document was created using an electronic medical record system with [employer] direct computerized dictation system. Although this document has been carefully reviewed, there may still be some phonetic and typographical errors. These areas are purely typographical due to imperfections of the software programs, and do not reflect any compromise in the patient's medical care. Plan discussed with: Patient My Orders Orders - GERMAINE ULLOA MD Procedure Category Date Status Time Platelet Monitoring [facility] 03/05/25 In Process 17:12 Vte Protocol Initiated [facility] 03/05/25 In Process 17:12 Heparin Per [facility] 03/05/25 In Process Standardized Proce 17:12 Discontinue All Im [facility] 03/05/25 In Process Injections 17:12 Heparin Per Pharmacy [facility] 03/05/25 In Process Protocol 18:43 Heparin Drip/D5w [facility] 03/06/25 In Process 100units/Ml 09:00 Heparin Protocol [facility] 03/06/25 In Process 08:55 Date of Service: Mar 06, 2025 Billing Provider: GERMAINE ULLOA MD Common Visit Codes: [id number] INP/OBS CARE(HIGH) GERMAINE ULLOA MD Mar 06, 2025 10:28
[2025-03-06] MEDS: FUROSEMIDE 20 MG TAB PO SCH (11:17)
[2025-03-06 13:35] LABS: INR 1.07 (0.9-1.15); Partial Thromboplastin Time 43.7 SEC (24.5-34.5); Prothrombin Time 11.3 sec (9.3-11.8)
--- NOTE | 2025-03-06 19:07 | DVHPN2 ---
Progress Note - Dictate Date Seen: Mar 06, 2025 Has the PT tested + for MRSA If YES, has PT been informed?: No Medical Necessity Reason Pt with a Central, PICC or Fol: No Subjective Patient was seen and evaluated in follow up. No acute events overnight. Patient denies any new complaints. On 10L NC. Heparin drip has been discontinued. Received dialysis yesterday with 3L removed. vital signs Vital Sign Date Time Temp Pulse Resp B/P (MAP) Pulse Ox O2 Delivery O2 Flow Rate FiO2 03/06/25 18:16 76 20 164/70 03/06/25 17:00 97.8 98 97.8 03/06/25 10:00 Mask 8.0 03/06/25 10:00 60 Total Intake and Output 03/05/25 03/05/25 03/06/25 15:00 23:00 07:00 Intake Total 360 ml 400 ml Output Total 200 ml Balance 160 ml 400 ml medications Current Medications Medications Dose Ordered Sig/Nereyda Route Start Time Stop Time Status Last Admin Dose Admin Sodium Chloride 10 ml Q8HR IV 02/26/25 22:00 03/06/25 14:00 10 ML Ondansetron HCl 4 mg Q4HP PRN IV 02/26/25 15:30 03/03/25 18:25 4 MG Docusate Sodium 100 mg BIDPRN PRN PO 02/26/25 15:30 02/27/25 17:40 100 MG Acetaminophen 650 mg Q6HP PRN PO 02/26/25 15:30 03/03/25 10:11 650 MG Morphine Sulfate 2 mg Q4HPRN PRN IV 02/26/25 15:30 Hold Nitroglycerin 0.4 mg Q5MINP PRN SL 02/26/25 15:30 03/03/25 10:31 0.4 MG Morphine Sulfate 2 mg Q30M PRN IV 02/26/25 15:30 Bupropion HCl 150 mg DAILY PO 02/27/25 10:00 03/06/25 11:16 150 MG Clonidine HCl 0.1 mg Q8HPRN PRN PO 02/26/25 15:30 03/04/25 00:45 0.1 MG Duloxetine HCl 30 mg DAILY PO 02/27/25 10:00 03/06/25 11:18 30 MG Acetaminophen/ Hydrocodone Bitart 1 tab BID PRN PO 02/26/25 15:30 03/02/25 10:41 1 TAB Meclizine HCl 25 mg BIDP PRN PO 02/26/25 15:30 02/27/25 17:36 25 MG Minoxidil 2.5 mg BID PO 02/26/25 22:00 03/06/25 11:18 2.5 MG Pantoprazole Sodium 40 mg DAILY PO 02/27/25 10:00 03/06/25 10:00 40 MG Trazodone HCl 50 mg HS PO 02/26/25 22:00 03/05/25 21:28 50 MG Aspirin 81 mg DAILY PO 02/27/25 10:00 03/06/25 11:17 81 MG Atorvastatin Calcium 80 mg HS PO 02/26/25 22:00 03/05/25 21:29 80 MG Patient Own Medication 1 tab BID PO 02/26/25 22:00 Hold Donepezil HCl 5 mg DAILY PO 02/27/25 10:00 03/06/25 11:17 5 MG Ipratropium [place] 0.5 mg Q4HPRN PRN NEB 02/26/25 16:15 03/05/25 11:47 0.5 MG Albuterol 2.5 mg Q4HPRN PRN NEB 02/26/25 16:15 03/05/25 11:47 2.5 MG Diagnostic Test (Pha) 1 strip ACHS 02/26/25 22:00 03/06/25 17:00 1 STRIP Insulin Human Regular HS SC 02/26/25 22:00 03/05/25 21:53 2 UNITS Insulin Human Regular AC SC 02/27/25 07:00 03/06/25 11:30 2 UNITS Dextrose 50 ml UD PRN IV 02/26/25 17:15 Doxycycline Hyclate 100 ml @ 50 mls/hr Q12H IV 02/28/25 11:00 03/04/25 22:45 50 MLS/HR Enteral Nutritional Formula 240 ml TIDWM PO 02/28/25 12:00 03/06/25 18:11 240 ML Lactulose 30 ml DAILYPRN PRN PO 03/01/25 10:00 03/04/25 17:47 30 ML Hydromorphone HCl 0.5 mg Q4HPRN PRN IV 03/03/25 11:45 03/06/25 17:46 0.5 MG Ceftazidime/ Dextrose 0.5 gm/ Sodium Chloride 50 ml @ 50 mls/hr DAILY IV 03/04/25 10:00 03/06/25 10:00 50 MLS/HR Nifedipine 60 mg BID PO 03/04/25 22:00 03/06/25 11:17 60 MG Hydralazine HCl 25 mg Q12HR PO 03/04/25 22:00 03/06/25 10:00 25 MG Furosemide 20 mg DAILY PO 03/06/25 10:00 03/06/25 11:17 20 MG Apixaban 2.5 mg BID PO 03/06/25 22:00 03/13/25 21:59 Apixaban 2.5 mg BID PO 03/07/25 10:00 objective Vitals and nursing notes reviewed. General Appearance: In no acute distress. HEENT: Atraumatic, PERRLA, Mucous membr. moist/pink Respiratory: Diminished breath sounds present. No wheezing. Cardiovascular: Regular rate, Normal S1, Normal S2 Abdominal: Normal bowel sounds, Soft, No tenderness Extremities: No clubbing, No cyanosis, No edema, Normal pulses, Other (right arm fistula) Skin: No rashes, No breakdown, No significant lesion Neuro: Alert, Oriented X3, Normal speech Psych/Mental Status: Mental status NL, Mood NL laboratory and microbiology Laboratory Tests 03/06/25 05:43 03/05/25 11:57 Test 03/05/25 11:57 Range/Units Serum Glucose 131 H 74-106 mg/dL Problem List Acute hypoxic respiratory failure Chest pain Elevated troponin ESRD on HD Assessment/Plan Agree with current supportive medical care. Cardiology and Pulmonary Medicine following. Supplemental oxygen to keep sats >92%. Heparin drip discontinued. Transitioned to Eliquis. Daily lab monitoring. Dialyzed yesterday. No HD today. IV antibiotics. Renal diet. Additional plan as per the hospital course. Dietary Evaluation Review Comments: Encourage and monitor PO intake to meet his needs Reinforce dietary sodium restrition Monitor cholesterol levels Expected Outcomes/Goals: No wt loss, fluid/electolyte in balance Plan discussed with: Patient, Other (RN) HARJINDER RUTHERFORD DO Mar 06, 2025 19:07
--- NOTE | 2025-03-06 19:26 | DVH ---
EXAM: XY CHEST XRAY 1 VIEW CLINICAL HISTORY: labored breathing TECHNIQUE: Single AP view of the chest WID: COMPARISON: XY CHEST PORTABLE on DOS: 03/01/25 FINDINGS: Lines and tubes: None Chest: Cardiomegaly and pulmonary vascular congestion. Diffuse interstitial prominence of the lungs. Small bilateral pleural effusions. No pneumothorax. The osseous structures are grossly intact. IMPRESSION: 1. CHF/ volume overload.
--- NOTE | 2025-03-06 20:40 | DVHPN2 ---
Subjective DOS: 03/06/2025 Patient seen and examined at bedside. Remains on supplemental oxygen Overnight events reviewed. Reviewed: Care Plan, H&P, Labs, Medications, Previous Orders, Radiology Changes from previous H/P or p: No Changes Eyes: No Pain, No Vision change, No Conjunctivae inflammation, No Eyelid inflammation, No Other, No Redness ENT: No Ear pain, No Ear discharge, No Nose pain, No Nose discharge, No Nose congestion, No Mouth pain, No Mouth swelling, No Throat pain, No Throat swelling, No Other Cardiovascular: Chest Pain; No Palpitations, No Orthopnea, No Paroxysmal Noc. Dyspnea, No Edema, No Lt Headedness, No Other Respiratory: No Cough, No Dry; Shortness of breath, SOB with excertion; No Wheezing, No Hemoptysis, No Pleuritic Pain, No Sputum, No Other Gastrointestinal: No Nausea, No Vomiting, No Abdominal Pain, No Diarrhea, No Constipation, No Melena, No Hematochezia, No Other Genitourinary: No Dysuria, No Frequency, No Incontinence, No Hematuria, No Retention, No Other Musculoskeletal: No other, No neck pain, No shoulder pain, No arm pain, No back pain, No hand pain, No leg pain, No foot pain Skin: No Rash, No Lesions, No Jaundice, No Bruising, No Other Objective Vitals Vital Signs Date Time Temp Pulse Resp B/P (MAP) Pulse Ox O2 Delivery O2 Flow Rate FiO2 03/06/25 19:14 98 Simple Mask* 10 99 03/06/25 18:16 76 20 164/70 03/06/25 17:00 97.8 97.8 Intake/Output Intake and Output 03/06/25 07:00 Intake Total 760 ml Output Total 200 ml Balance 560 ml Intake Oral 760 ml Output Urine Total 200 ml # Voids 1 Exam Gen.: Patient lying in bed in no apparent distress. On supplemental oxygen. Head: Normocephalic, atraumatic. Eyes: EOMI/PERRLA. Ears: Normal hearing. Normal anatomy. Neck/trachea: Trachea midline, supple. Nose: Normal external anatomy. Mouth: Moist mucous membranes. Chest: Decreased air entry bilaterally. No wheezing or rhonchi. Cardiovascular: Positive S1, positive S2. Regular rate and rhythm. Abdomen: Positive bowel sounds in all 4 quadrants. Soft, non-tender, non- distended. : Deferred. Rectal: Deferred. Skin: Warm, dry. Intact. Extremities: 2+ radial pulses bilaterally. No lower extremity edema. Neuro: Awake, alert, oriented x3. No gross motor or sensory deficits. Cranial nerves II through XII intact. Gait not assessed. General Appearance: Alert, Oriented X3 HEENT: Atraumatic, PERRLA, EOMI, Mucous membr. moist/pink Lungs: Clear to auscultation, Normal air movement Cardiovascular: Regular rate, Normal S1, Normal S2, No murmurs, Gallops, Rubs Abdomen: Normal bowel sounds, Soft, No tenderness Extremities: No edema Neuro: Cranial nerves 3-12 NL Psych/Mental Status: Mental status NL Medications Current Medications Medications Dose Ordered Sig/Nereyda Route Start Time Stop Time Status Last Admin Dose Admin Sodium Chloride 10 ml Q8HR IV 02/26/25 22:00 03/06/25 14:00 10 ML Ondansetron HCl 4 mg Q4HP PRN IV 02/26/25 15:30 03/03/25 18:25 4 MG Docusate Sodium 100 mg BIDPRN PRN PO 02/26/25 15:30 02/27/25 17:40 100 MG Acetaminophen 650 mg Q6HP PRN PO 02/26/25 15:30 03/03/25 10:11 650 MG Morphine Sulfate 2 mg Q4HPRN PRN IV 02/26/25 15:30 Hold Nitroglycerin 0.4 mg Q5MINP PRN SL 02/26/25 15:30 03/03/25 10:31 0.4 MG Morphine Sulfate 2 mg Q30M PRN IV 02/26/25 15:30 Bupropion HCl 150 mg DAILY PO 02/27/25 10:00 03/06/25 11:16 150 MG Clonidine HCl 0.1 mg Q8HPRN PRN PO 02/26/25 15:30 03/04/25 00:45 0.1 MG Duloxetine HCl 30 mg DAILY PO 02/27/25 10:00 03/06/25 11:18 30 MG Acetaminophen/ Hydrocodone Bitart 1 tab BID PRN PO 02/26/25 15:30 03/02/25 10:41 1 TAB Meclizine HCl 25 mg BIDP PRN PO 02/26/25 15:30 02/27/25 17:36 25 MG Minoxidil 2.5 mg BID PO 02/26/25 22:00 03/06/25 11:18 2.5 MG Pantoprazole Sodium 40 mg DAILY PO 02/27/25 10:00 03/06/25 10:00 40 MG Trazodone HCl 50 mg HS PO 02/26/25 22:00 03/05/25 21:28 50 MG Aspirin 81 mg DAILY PO 02/27/25 10:00 03/06/25 11:17 81 MG Atorvastatin Calcium 80 mg HS PO 02/26/25 22:00 03/05/25 21:29 80 MG Patient Own Medication 1 tab BID PO 02/26/25 22:00 Hold Donepezil HCl 5 mg DAILY PO 02/27/25 10:00 03/06/25 11:17 5 MG Ipratropium [place] 0.5 mg Q4HPRN PRN NEB 02/26/25 16:15 03/05/25 11:47 0.5 MG Albuterol 2.5 mg Q4HPRN PRN NEB 02/26/25 16:15 03/05/25 11:47 2.5 MG Diagnostic Test (Pha) 1 strip ACHS 02/26/25 22:00 03/06/25 17:00 1 STRIP Insulin Human Regular HS SC 02/26/25 22:00 03/05/25 21:53 2 UNITS Insulin Human Regular AC SC 02/27/25 07:00 03/06/25 11:30 2 UNITS Dextrose 50 ml UD PRN IV 02/26/25 17:15 Doxycycline Hyclate 100 ml @ 50 mls/hr Q12H IV 02/28/25 11:00 03/04/25 22:45 50 MLS/HR Enteral Nutritional Formula 240 ml TIDWM PO 02/28/25 12:00 03/06/25 18:11 240 ML Lactulose 30 ml DAILYPRN PRN PO 03/01/25 10:00 03/04/25 17:47 30 ML Hydromorphone HCl 0.5 mg Q4HPRN PRN IV 03/03/25 11:45 03/06/25 17:46 0.5 MG Ceftazidime/ Dextrose 0.5 gm/ Sodium Chloride 50 ml @ 50 mls/hr DAILY IV 03/04/25 10:00 03/06/25 10:00 50 MLS/HR Nifedipine 60 mg BID PO 03/04/25 22:00 03/06/25 11:17 60 MG Hydralazine HCl 25 mg Q12HR PO 03/04/25 22:00 03/06/25 10:00 25 MG Furosemide 20 mg DAILY PO 03/06/25 10:00 03/06/25 11:17 20 MG Apixaban 2.5 mg BID PO 03/06/25 22:00 03/13/25 21:59 Apixaban 2.5 mg BID PO 03/07/25 10:00 Laboratory Results Laboratory Tests 03/05/25 11:57 03/06/25 05:43 Coagulation Test 03/06/25 05:43 03/06/25 13:05 Prothrombin Time 11.9 sec (9.3-11.8) H 11.3 sec (9.3-11.8) Prothrombin Time INR 1.14 (0.9-1.15) 1.07 (0.9-1.15) Activated Partial Thromboplast Time > 139.0 SEC (24.5-34.5) *H 43.7 SEC (24.5-34.5) H Microbiology Microbiology Date/Time Source Procedure Growth Status 02/28/25 10:03 Sputum Gram Stain - Final Complete 02/28/25 10:03 Respiratory Culture - Final Enterobacter cloacae Complete 02/27/25 06:33 Nose MRSA Screen - Final Complete Assessment/Plan Assessment/Plan Impression: Acute on chronic hypoxic respiratory failure Elevated troponin Pulmonary edema Pulmonary vascular congestion End-stage renal disease on hemodialysis Can not rule out underlying pneumonia Events: Remains on supplemental oxygen Currently on 8 LPM NC --> 10 LPM simple mask Taper O2 as tolerated Obtain CXR, PA and lateral. Follow up results. CT angio on 03/05/25 demonstrates no evidence of pulmonary embolism. CHF/volume overload, with interstitial pulmonary edema, small bilateral pleural effusions, chest wall edema, and mild cardiomegaly. [id number] 3-vessel calcified coronary artery disease and mild aortic valve calcification. Bilateral hilar, mediastinal, and supraclavicular lymphadenopathy, nonspecific though could be reactive or passive congestion. Continue antibiotics Continue bronchodilators Incentive spirometry Blood pressure control. Accu-Cheks, ISS. Protonix for GI prophylaxis Hemodialysis per Nephrology Diurese with Lasix as tolerated Monitor renal function. Monitor electrolytes. Supplement as necessary. Monitor ins and outs. Labs and imaging reviewed. Rest of plan as noted below. Plan: Supplemental oxygen Titrate to keep O2 saturation above 92%. Complete antibiotic course. Prior sputum cultures grew moderate yeast, few GPC and few gram positive rods. MRSA negative Bronchodilators PRN. Monitor renal function Hemodialysis per nephrology Monitor electrolytes Supplement as necessary. Monitor ins and outs Arrange for stationary concentrator at home that goes up to 10 L/min Social work Services consultation placed GI prophylaxis-Protonix Prognosis: Poor given multiple comorbidities. Rest of plan per hospitalist and other consultants. Thank you Dr. Stinson for allowing me to participate in this patient's care. Further recommendations will depend on patient's clinical course. Please do not hesitate to contact me if you have any questions or concerns. This medical document was created using an electronic medical record system with [employer] dictation system. Although this document has been carefully reviewed, there may still be some phonetic and typographical errors. These areas are purely typographical due to imperfections of the software programs, and do not reflect any compromise in the patient's medical care. Plan discussed with: Patient, Other (RN Tana) My Orders Orders - JUAN SALDAÑA MD Procedure Category Date Status Time Chest Xray 1 View XY 03/06/25 Resulted 17:12 Visit Coding Pulmonary Billing Provider: JUAN SALDAÑA MD Date of Service if different f: Mar 06, 2025 Common Visit Codes: [id number] INP/OBS CARE(HIGH) JUAN SALDAÑA MD Mar 06, 2025 20:40
[2025-03-06] MEDS: APIXABAN 5 MG TAB PO SCH (21:21)
[2025-03-07] VITALS (12 sets, daily range): BP systolic 140–183; BP diastolic 62–79; PULSE 72–79; RESP 16–18; TEMP 97.8–98.4; O2SAT 93–97
[2025-03-07] MEDS ORDERED: APIXABAN 5 MG TAB PO SCH (10:00)
--- NOTE | 2025-03-07 11:35 | DVHPN2 ---
Subjective The patient is seen and examined at bedside. Complains of shortness of breath but feel better today. Waiting for HD Reviewed: Care Plan, H&P, Labs, Medications, Previous Orders, Radiology Changes from previous H/P or p: No Changes Eyes: No Pain, No Vision change, No Conjunctivae inflammation, No Eyelid inflammation, No Other, No Redness ENT: No Ear pain, No Ear discharge, No Nose pain, No Nose discharge, No Nose congestion, No Mouth pain, No Mouth swelling, No Throat pain, No Throat swelling, No Other Cardiovascular: Chest Pain; No Palpitations, No Orthopnea, No Paroxysmal Noc. Dyspnea, No Edema, No Lt Headedness, No Other Respiratory: No Cough, No Dry; Shortness of breath, SOB with excertion; No Wheezing, No Hemoptysis, No Pleuritic Pain, No Sputum, No Other Gastrointestinal: No Nausea, No Vomiting, No Abdominal Pain, No Diarrhea, No Constipation, No Melena, No Hematochezia, No Other Genitourinary: No Dysuria, No Frequency, No Incontinence, No Hematuria, No Retention, No Other Musculoskeletal: No other, No neck pain, No shoulder pain, No arm pain, No back pain, No hand pain, No leg pain, No foot pain Skin: No Rash, No Lesions, No Jaundice, No Bruising, No Other Objective Vitals Vital Signs Date Time Temp Pulse Resp B/P (MAP) Pulse Ox O2 Delivery O2 Flow Rate FiO2 03/07/25 09:25 74 16 96 03/07/25 09:25 Simple Mask* 10 99 03/07/25 09:14 126/65 03/07/25 08:30 97.9 97.9 Intake/Output Intake and Output 03/07/25 07:00 Intake Total 920 ml Output Total 0 ml Balance 920 ml Intake Oral 820 ml IV Total 100 ml Output Urine Total 0 ml General Appearance: Alert, Oriented X3 HEENT: Atraumatic, PERRLA, EOMI, Mucous membr. moist/pink Lungs: Clear to auscultation, Normal air movement Cardiovascular: Regular rate, Normal S1, Normal S2, No murmurs, Gallops, Rubs Abdomen: Normal bowel sounds, Soft, No tenderness Extremities: No edema Neuro: Cranial nerves 3-12 NL Psych/Mental Status: Mental status NL Medications Current Medications Medications Dose Ordered Sig/Nereyda Route Start Time Stop Time Status Last Admin Dose Admin Sodium Chloride 10 ml Q8HR IV 02/26/25 22:00 03/07/25 06:30 10 ML Ondansetron HCl 4 mg Q4HP PRN IV 02/26/25 15:30 03/03/25 18:25 4 MG Docusate Sodium 100 mg BIDPRN PRN PO 02/26/25 15:30 02/27/25 17:40 100 MG Acetaminophen 650 mg Q6HP PRN PO 02/26/25 15:30 03/03/25 10:11 650 MG Morphine Sulfate 2 mg Q4HPRN PRN IV 02/26/25 15:30 Hold Nitroglycerin 0.4 mg Q5MINP PRN SL 02/26/25 15:30 03/03/25 10:31 0.4 MG Morphine Sulfate 2 mg Q30M PRN IV 02/26/25 15:30 Bupropion HCl 150 mg DAILY PO 02/27/25 10:00 03/07/25 09:17 150 MG Clonidine HCl 0.1 mg Q8HPRN PRN PO 02/26/25 15:30 03/04/25 00:45 0.1 MG Duloxetine HCl 30 mg DAILY PO 02/27/25 10:00 03/07/25 09:14 30 MG Acetaminophen/ Hydrocodone Bitart 1 tab BID PRN PO 02/26/25 15:30 03/02/25 10:41 1 TAB Meclizine HCl 25 mg BIDP PRN PO 02/26/25 15:30 02/27/25 17:36 25 MG Minoxidil 2.5 mg BID PO 02/26/25 22:00 03/06/25 21:25 2.5 MG Pantoprazole Sodium 40 mg DAILY PO 02/27/25 10:00 03/07/25 09:13 40 MG Trazodone HCl 50 mg HS PO 02/26/25 22:00 03/06/25 21:21 50 MG Aspirin 81 mg DAILY PO 02/27/25 10:00 03/07/25 09:16 81 MG Atorvastatin Calcium 80 mg HS PO 02/26/25 22:00 03/06/25 21:21 80 MG Patient Own Medication 1 tab BID PO 02/26/25 22:00 Hold Donepezil HCl 5 mg DAILY PO 02/27/25 10:00 03/06/25 11:17 5 MG Ipratropium [place] 0.5 mg Q4HPRN PRN NEB 02/26/25 16:15 03/07/25 09:25 0.5 MG Albuterol 2.5 mg Q4HPRN PRN NEB 02/26/25 16:15 03/07/25 09:25 2.5 MG Diagnostic Test (Pha) 1 strip ACHS 02/26/25 22:00 03/07/25 06:30 1 STRIP Insulin Human Regular HS SC 02/26/25 22:00 03/06/25 21:38 2 UNITS Insulin Human Regular AC SC 02/27/25 07:00 03/06/25 11:30 2 UNITS Dextrose 50 ml UD PRN IV 02/26/25 17:15 Doxycycline Hyclate 100 ml @ 50 mls/hr Q12H IV 02/28/25 11:00 03/06/25 22:44 50 MLS/HR Enteral Nutritional Formula 240 ml TIDWM PO 02/28/25 12:00 03/06/25 18:11 240 ML Lactulose 30 ml DAILYPRN PRN PO 03/01/25 10:00 03/04/25 17:47 30 ML Hydromorphone HCl 0.5 mg Q4HPRN PRN IV 03/03/25 11:45 03/07/25 03:36 0.5 MG Ceftazidime/ Dextrose 0.5 gm/ Sodium Chloride 50 ml @ 50 mls/hr DAILY IV 03/04/25 10:00 03/06/25 10:00 50 MLS/HR Nifedipine 60 mg BID PO 03/04/25 22:00 03/07/25 09:14 60 MG Hydralazine HCl 25 mg Q12HR PO 03/04/25 22:00 03/06/25 21:26 25 MG Furosemide 20 mg DAILY PO 03/06/25 10:00 03/07/25 09:14 20 MG Apixaban 2.5 mg BID PO 03/06/25 22:00 03/13/25 21:59 03/07/25 09:16 2.5 MG Laboratory Results Laboratory Tests 03/05/25 11:57 03/06/25 05:43 Coagulation Test 03/06/25 13:05 Prothrombin Time 11.3 sec (9.3-11.8) Prothrombin Time INR 1.07 (0.9-1.15) Activated Partial Thromboplast Time 43.7 SEC (24.5-34.5) H Microbiology Microbiology Date/Time Source Procedure Growth Status 02/28/25 10:03 Sputum Gram Stain - Final Complete 02/28/25 10:03 Respiratory Culture - Final Enterobacter cloacae Complete 02/27/25 06:33 Nose MRSA Screen - Final Complete Labs and/or images reviewed: Labs reviewed by me Assessment/Plan Assessment/Plan Acute hypoxic respiratory failure, resolved Chronic respiratory failure on home O2 ESRD COPD DM2 HTN Mixed hyperlipidemia Elevated troponin probable 2nd to NSTEMI type 2 DVT of right upper extremities Superficial thrombus of left upper extremities. Pancreatic cystic mass. PLAN: Continue current management. Continue with Oxygen Continue HD per schedule Continue IV antibiotic. 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 Stat trop is elevated. 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 Start on heparin drip yesterday. Patient has limited access, so will switch to eliquis 2.5mg bid due to renal dose. DW patient and regarding to the lymph node and cystic mass. They [facility] for further work up on the mass in March 2025. This medical document was created using an electronic medical record system with [employer] direct computerized dictation system. Although this document has been carefully reviewed, there may still be some phonetic and typographical errors. These areas are purely typographical due to imperfections of the software programs, and do not reflect any compromise in the patient's medical care. Plan discussed with: Patient My Orders Orders - GERMAINE ULLOA MD Procedure Category Date Status Time Apixaban (Eliquis) PHA 03/06/25 In Process 22:00 Date of Service: Mar 07, 2025 Billing Provider: GERMAINE ULLOA MD Common Visit Codes: [id number] INP/OBS CARE(HIGH) GERMAINE ULLOA MD Mar 07, 2025 11:35
--- NOTE | 2025-03-07 17:35 | DVHPN2 ---
Progress Note - Dictate Date Seen: Mar 07, 2025 Has the PT tested + for MRSA If YES, has PT been informed?: No Medical Necessity Reason Pt with a Central, PICC or Fol: No vital signs Vital Sign Date Time Temp Pulse Resp B/P (MAP) Pulse Ox O2 Delivery O2 Flow Rate FiO2 03/07/25 16:20 97.9 79 18 140/76 (97) 96 97.9 03/07/25 09:25 Simple Mask* 10 99 Total Intake and Output 03/06/25 03/06/25 03/07/25 15:00 23:00 07:00 Intake Total 420 ml 500 ml Output Total 0 ml Balance 420 ml 500 ml medications Current Medications Medications Dose Ordered Sig/Nereyda Route Start Time Stop Time Status Last Admin Dose Admin Sodium Chloride 10 ml Q8HR IV 02/26/25 22:00 03/07/25 14:28 10 ML Ondansetron HCl 4 mg Q4HP PRN IV 02/26/25 15:30 03/03/25 18:25 4 MG Docusate Sodium 100 mg BIDPRN PRN PO 02/26/25 15:30 02/27/25 17:40 100 MG Acetaminophen 650 mg Q6HP PRN PO 02/26/25 15:30 03/03/25 10:11 650 MG Morphine Sulfate 2 mg Q4HPRN PRN IV 02/26/25 15:30 Hold Nitroglycerin 0.4 mg Q5MINP PRN SL 02/26/25 15:30 03/03/25 10:31 0.4 MG Morphine Sulfate 2 mg Q30M PRN IV 02/26/25 15:30 Bupropion HCl 150 mg DAILY PO 02/27/25 10:00 03/07/25 09:17 150 MG Clonidine HCl 0.1 mg Q8HPRN PRN PO 02/26/25 15:30 03/04/25 00:45 0.1 MG Duloxetine HCl 30 mg DAILY PO 02/27/25 10:00 03/07/25 09:14 30 MG Acetaminophen/ Hydrocodone Bitart 1 tab BID PRN PO 02/26/25 15:30 03/02/25 10:41 1 TAB Meclizine HCl 25 mg BIDP PRN PO 02/26/25 15:30 02/27/25 17:36 25 MG Minoxidil 2.5 mg BID PO 02/26/25 22:00 03/06/25 21:25 2.5 MG Pantoprazole Sodium 40 mg DAILY PO 02/27/25 10:00 03/07/25 09:13 40 MG Trazodone HCl 50 mg HS PO 02/26/25 22:00 03/06/25 21:21 50 MG Aspirin 81 mg DAILY PO 02/27/25 10:00 03/07/25 09:16 81 MG Atorvastatin Calcium 80 mg HS PO 02/26/25 22:00 03/06/25 21:21 80 MG Patient Own Medication 1 tab BID PO 02/26/25 22:00 Hold Donepezil HCl 5 mg DAILY PO 02/27/25 10:00 03/06/25 11:17 5 MG Ipratropium [place] 0.5 mg Q4HPRN PRN NEB 02/26/25 16:15 03/07/25 09:25 0.5 MG Albuterol 2.5 mg Q4HPRN PRN NEB 02/26/25 16:15 03/07/25 09:25 2.5 MG Diagnostic Test (Pha) 1 strip ACHS 02/26/25 22:00 03/07/25 06:30 1 STRIP Insulin Human Regular HS SC 02/26/25 22:00 03/06/25 21:38 2 UNITS Insulin Human Regular AC SC 02/27/25 07:00 03/06/25 11:30 2 UNITS Dextrose 50 ml UD PRN IV 02/26/25 17:15 Doxycycline Hyclate 100 ml @ 50 mls/hr Q12H IV 02/28/25 11:00 03/07/25 13:56 50 MLS/HR Enteral Nutritional Formula 240 ml TIDWM PO 02/28/25 12:00 03/07/25 12:15 240 ML Lactulose 30 ml DAILYPRN PRN PO 03/01/25 10:00 03/04/25 17:47 30 ML Hydromorphone HCl 0.5 mg Q4HPRN PRN IV 03/03/25 11:45 03/07/25 13:58 0.5 MG Ceftazidime/ Dextrose 0.5 gm/ Sodium Chloride 50 ml @ 50 mls/hr DAILY IV 03/04/25 10:00 03/06/25 10:00 50 MLS/HR Nifedipine 60 mg BID PO 03/04/25 22:00 03/07/25 09:14 60 MG Hydralazine HCl 25 mg Q12HR PO 03/04/25 22:00 03/06/25 21:26 25 MG Furosemide 20 mg DAILY PO 03/06/25 10:00 03/07/25 09:14 20 MG Apixaban 2.5 mg BID PO 03/06/25 22:00 03/13/25 21:59 03/07/25 09:16 2.5 MG laboratory and microbiology Laboratory Tests 03/06/25 05:43 03/05/25 11:57 Test 03/05/25 11:57 Range/Units Serum Glucose 131 H 74-106 mg/dL Assessment/Plan Assessment/Plan This is an 79-year old male known outside to our practice who initially presented 02/26/2025 with reported shortness of breath and chest discomfort. Patient himself does have underlying history of chronic respiratory failure on home oxygen therapy and reports indicate on the day of initial presentation, patient had went for routine testing outside within our practice and had been reported to have oxygen saturations within the 50% range despite use of his portable oxygen concentrator which EMS had been called and patient was later transported to present facility for further evaluation and management. Throughout course of present admission patient had been admitted with acute on chronic hypoxic respiratory failure which patient does have known history of COPD and has been managed by pulmonology services throughout present hospital course. Chest imaging had revealed evidence for pulmonary vascular congestion which patient does have underlying history of chronic diastolic heart failure with last known LVEF of 60% as per Echocardiogram findings 11/28/2024. Right ventricular systolic pressure at that time was noted to be 55mmHg consistent with underlying pulmonary hypertension which it is further noted patient himself does have history of ESRD on hemodialysis for which fluid volume is managed by Nephrology services via hemodialysis. Patient does have underlying anemia. Serial high sensitive troponins have revealed flat/mild elevation with a peak level of 112 that had subsequently revealed gradual downtrend. 12-lead electrocardiogram had revealed sinus rhythm, first degree AVB, right bundle branch block, prolonged QTC, however with no evidence for acute ischemic changes. Of note, patient does have underlying history of coronary artery disease and is status post previous PCI with PERLA x 1 involving ostial LAD 08/04/2023. Cardiac catheterization at that time had revealed presence of a patent stent involving mLAD as well as type II pulmonary hypertension. Patient does have known history of previously provoked DVT involving subclavian/neck and had been on low-dose Xarelto as outpatient however upon review of outside records, AC therapy had recently been discontinued and patient has been kept on low-dose Aspirin given previous PCI. Of note, throughout course of present admission, it is notable that patient has been observed to have transient hypertensive events consistent with hypertensive urgency which could have attributed to patients intermittent chest pains. Despite the above, at present time of consultation, patient himself reports chest pain has now subsided. Denies any palpitations, dizziness, syncope, or any further cardiac related symptoms. Cardiology services were involved late within the admission (on ) by primary team request for cardiac aspects of care. Past medical history includes end-stage renal disease on hemodialysis, old history of CVA (2018), poor functional capacity, coronary artery disease and status post PCI (last stent in July 2023, ostial LAD), COPD, obstructive sleep apnea, diabetes mellitus, hypertension, anemia (history of repeated transfusions), D-CHF, SVT, pulmonary hypertension (considered type 2), history of pancytopenia (resolved later), history of DVT in upper extremity, dementia, old history of underlying RBBB, peripheral artery disease, right external iliac artery aneurysm, history of CDT colitis, repeated/significant GI bleedings, 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 Past medical history also includes DVT in the right upper extremity, history of septic shock, history of pneumonia, sick sinus syndrome and status post pacemaker (Micra/Medtronic) implantation. Echocardiogram of November 28, 2024 revealed Left ventricle: Mild concentric left ventricular hypertrophy was seen. LVEF was around 60%. There was no gross wall motion abnormality. Pseudo normal LV diastolic dysfunction was observed. Right ventricle: Right ventricle was dilated with preserved systolic function. Both atria were dilated. Aortic valve: Aortic sclerosis with no stenosis was observed. Mild aortic insufficiencywas seen. There was mild mitral regurgitation. There was [id number] tricuspid regurgitation. Pulmonary valve was not well visualized. Right ventricular systolic pressure was assessed at 55 mm Hg. There was no pericardial effusion. Echocardiogram of 2024 revealed: EF of 60%, pseudonormal LV filling, dilated RV, VIVIANA, mild AI, Mild MR, mild to moderate TR and RVSP of 55 mmHg. Echocardiogram of September 11, 2024 (performed in the office) reported ejection fraction of 55-60%, pseudo-normal left ventricular diastolic dysfunction, mild biatrial enlargement, mild mitral regurgitation, tricuspid regurgitation, atrial insufficiency, mild mitral annular calcification and right ventricular systolic pressure of less than 35 mm Hg Echocardiogram of June 05, 2024 reported mild concentric left ventricular hypertrophy, ejection fraction of 45-50%, mild biatrial enlargement, mild aortic insufficiency/tricuspid regurgitation/trace mitral regurgitation. Right ventricular systolic pressure of 48 mm Hg. Echocardiogram of January 2024 had revealed: Ejection fraction of 40-45%, anterior/anteroseptal hypokinesia, biatrial enlargement, right ventricular systolic pressure 45 mm Hg. Echocardiogram October 28, 2023 had revealed mild concentric left ventricular hypertrophy, LVEF of 52% with mild diffuse hypokinesis, dilated RV/LA/RA, cdug-ah-ltnxwpri aortic insufficiency, mild MR, moderate TR and right ventricular systolic pressure of 60 mm Hg Echocardiogram of November 08, 2023 (performed in [facility]) had reported: LVEF of 50%, [id number] TR, mild aortic insufficiency and right ventricular systolic pressure of 49 mm Hg Echocardiogram of September 15, 2023 (performed and [facility]) revealed ejection fraction of 45-50% Echocardiogram of March 22, 2023 (performed in the office) revealed ejection fraction of 65-70%, mild concentric left ventricular hypertrophy, moderate biatrial enlargement, ofst-mu-ufhdknlo MR/TR, mild AI/PI and right ventricular systolic pressure of 66 mm Hg. Left heart catheterization on August 04, 2023 revealed: 1 vessel coronary artery disease and status post PCI (drug-eluting stent deployment of ostial LAD, LVEF of 60% with increased LVEDP, patent stent in mid LAD, type 2 pulmonary hypertension. CTA of lungs: 1. No evidence of pulmonary embolism. 2. CHF/ volume overload, with interstitial pulmonary edema, small bilateral pleural effusions, chest wall edema, and mild cardiomegaly. 3. Mnwk-qy-jymledul 3-vessel calcified coronary artery disease and mild aortic valve calcification. 4. Bilateral hilar, mediastinal, and supraclavicular lymphadenopathy, nonspecific though could be reactive or passive congestion. Consider follow-up CT in 3 months to re-evaluate this finding. 5. Persistent cystic mass in the tail of the pancreas without significant change. Follow-up MRI was previously recommended on 11/30/2024 Venous duplex of bilateral lower ext: IMPRESSION: NO SONOGRAPHIC EVIDENCE FOR DEEP VENOUS THROMBOSIS IN THE BILATERAL LOWER EXTREMITY VEINS. Venous duplex of bilateral upper ext: IMPRESSION: 1. Positive for Acute appearing deep vein thrombus in the right upper extremity internal jugular vein. 2. Positive for Acute Occlusive superficial femoral vein thrombus in the left upper extremity basilic vein. 3. Indeterminate hypoechoic structure adjacent to the right axillary vein which could reflect an indeterminate lymph node. Follow- up was recommended on the separately dictated same day CTA chest. ASSESSMENT: Acute hypoxemic respiratory failure Acute on chronic diastolic heart failure Concern for underlying COPD exacerbation Fluid overload, with known history of ESRD on HD Underlying history of type II pulmonary hypertension Anemia of chronic disease, in the setting of ESRD on HD Uncontrolled hypertension with evidence for hypertensive urgency Minimal/flat elevation of HS troponins, assessed to reflect type II physiology due to above Coronary artery disease, status post previous PCI's x 2 Presence of Medtronic Micra permanent pacemaker Previous history of provoked DVT Old history of underlying RBBB Old history of previous CVA Obstructive sleep apnea Diabetes mellitus Hyperlipidemia DVT: upper ext CARDIAC SUGGESTION FOR MANAGEMENT: Awaiting device interrogation (MDT) Recognizing clinical presentation/objective findings, ACS at this point is not considered Minimal/flat elevation of HS troponins are assessed to reflect type II physiology at this point No indication warranted for repeat ischemic workup at present time of admission Proceed with optimized medical therapy and aggressive risk factor modification Fluid volume management as per nephrology services via hemodialysis Proceed with close observation for overt signs of fluid overload Proceed with strict intakes, outputs, and daily weights Proceed with supplemental oxygen as warranted On empiric IV antibiotic therapy as per primary Avoidance of QTC prolonging agents advised Follow up Pulmonology recommendations Hydralazine 25mg twice daily Atorvastatin 40mg once daily Nifedipine 60mg once daily Oral Lasix Recognizing PCI > 1 year ago in a patient with chronic anemia with previous GI bleed found to have acute appearing DVT involving RUE requiring AC (On Heparin drip for now), discontinuation of previous Aspirin 81mg daily can be justified with consideration of pursuing oral AC when stable Patient does have appointment with [facility]astro group as outpatient for further work up on previously discovered pancreatic tail cystic mass in March 2025. Evaluation and management of pancreatic findings as per primary team Consider GI/surgery evaluation for pancreatic tail cystic mass Consider Imaging of pancreas: MRI (as suggested by Radiology). PM is MRI conditional. Management of concurrent medical conditions per primary team Management of comorbidities as per primary team Proceed with close rate and rhythm surveillance Proceed with close hemodynamic surveillance Proceed with optimized blood pressure control Transfuse to sustain HGB level above 7.0 Sustain Magnesium level greater than 2.0 Sustain Potassium level greater than 4.0 Follow up renal function and electrolytes Management in telemetry Follow up toy consultant recommendations Will proceed to follow from a cardiac perspective Further recommendations per clinical progression All available diagnostic labs, EKG's, and images were personally reviewed Plan of care discussed with and agreed upon by patient / primary RN Prognosis: Guarded Thank you for allowing me to participate in the care of this patient. Further recommendations based on patients clinical course and progression, primary attending, and other consultants. Will continue to follow with primary attending. If you have any questions or concerns, please do not hesitate to contact me. A total of 55 minutes was spent reviewing the patient record, examining the patient, making a diagnostic and therapeutic plan, discussing this plan with medical personnel, following up on diagnostic studies and following the patient for clinical stability excluding any and all procedures. At least 50% of this time was spent in direct, lavw-tc-ftdi contact. Dietary Evaluation Review Comments: Encourage and monitor PO intake to meet his needs Reinforce dietary sodium restrition Monitor cholesterol levels Expected Outcomes/Goals: No wt loss, fluid/electolyte in balance Plan discussed with: Patient (patient/primary rn) BLANE STONER Mar 07, 2025 17:35
--- NOTE | 2025-03-07 19:27 | DVHPN2 ---
Progress Note - Dictate Date Seen: Mar 07, 2025 Has the PT tested + for MRSA If YES, has PT been informed?: No Medical Necessity Reason Pt with a Central, PICC or Fol: No Subjective Patient was seen and evaluated in follow up. Chart/events reviewed. Patient endorses shortness of breath. On 10L via simple mask. Planned for right thoracentesis prior to dialysis. Chest x-ray showed cardiomegaly and pulmonary vascular congestion; diffuse interstitial prominence of the lungs; small bilateral pleural effusions; no pneumothorax. vital signs Vital Sign Date Time Temp Pulse Resp B/P (MAP) Pulse Ox O2 Delivery O2 Flow Rate FiO2 03/07/25 16:20 97.9 79 18 140/76 (97) 96 97.9 03/07/25 09:25 Simple Mask* 10 99 Total Intake and Output 03/06/25 03/06/25 03/07/25 15:00 23:00 07:00 Intake Total 420 ml 500 ml Output Total 0 ml Balance 420 ml 500 ml medications Current Medications Medications Dose Ordered Sig/Nereyda Route Start Time Stop Time Status Last Admin Dose Admin Sodium Chloride 10 ml Q8HR IV 02/26/25 22:00 03/07/25 14:28 10 ML Ondansetron HCl 4 mg Q4HP PRN IV 02/26/25 15:30 03/03/25 18:25 4 MG Docusate Sodium 100 mg BIDPRN PRN PO 02/26/25 15:30 02/27/25 17:40 100 MG Acetaminophen 650 mg Q6HP PRN PO 02/26/25 15:30 03/03/25 10:11 650 MG Morphine Sulfate 2 mg Q4HPRN PRN IV 02/26/25 15:30 Hold Nitroglycerin 0.4 mg Q5MINP PRN SL 02/26/25 15:30 03/03/25 10:31 0.4 MG Bupropion HCl 150 mg DAILY PO 02/27/25 10:00 03/07/25 09:17 150 MG Clonidine HCl 0.1 mg Q8HPRN PRN PO 02/26/25 15:30 03/04/25 00:45 0.1 MG Duloxetine HCl 30 mg DAILY PO 02/27/25 10:00 03/07/25 09:14 30 MG Meclizine HCl 25 mg BIDP PRN PO 02/26/25 15:30 02/27/25 17:36 25 MG Minoxidil 2.5 mg BID PO 02/26/25 22:00 03/06/25 21:25 2.5 MG Pantoprazole Sodium 40 mg DAILY PO 02/27/25 10:00 03/07/25 09:13 40 MG Trazodone HCl 50 mg HS PO 02/26/25 22:00 03/06/25 21:21 50 MG Atorvastatin Calcium 80 mg HS PO 02/26/25 22:00 03/06/25 21:21 80 MG Patient Own Medication 1 tab BID PO 02/26/25 22:00 Hold Donepezil HCl 5 mg DAILY PO 02/27/25 10:00 03/06/25 11:17 5 MG Ipratropium [place] 0.5 mg Q4HPRN PRN NEB 02/26/25 16:15 03/07/25 09:25 0.5 MG Albuterol 2.5 mg Q4HPRN PRN NEB 02/26/25 16:15 03/07/25 09:25 2.5 MG Diagnostic Test (Pha) 1 strip ACHS 02/26/25 22:00 03/07/25 18:34 1 STRIP Insulin Human Regular HS SC 02/26/25 22:00 03/06/25 21:38 2 UNITS Insulin Human Regular AC SC 02/27/25 07:00 03/07/25 18:34 2 UNITS Dextrose 50 ml UD PRN IV 02/26/25 17:15 Doxycycline Hyclate 100 ml @ 50 mls/hr Q12H IV 02/28/25 11:00 03/07/25 13:56 50 MLS/HR Enteral Nutritional Formula 240 ml TIDWM PO 02/28/25 12:00 03/07/25 18:29 240 ML Lactulose 30 ml DAILYPRN PRN PO 03/01/25 10:00 03/04/25 17:47 30 ML Hydromorphone HCl 0.5 mg Q4HPRN PRN IV 03/03/25 11:45 03/07/25 13:58 0.5 MG Ceftazidime/ Dextrose 0.5 gm/ Sodium Chloride 50 ml @ 50 mls/hr DAILY IV 03/04/25 10:00 03/06/25 10:00 50 MLS/HR Nifedipine 60 mg BID PO 03/04/25 22:00 03/07/25 09:14 60 MG Hydralazine HCl 25 mg Q12HR PO 03/04/25 22:00 03/06/25 21:26 25 MG Furosemide 20 mg DAILY PO 03/06/25 10:00 03/07/25 09:14 20 MG Apixaban 2.5 mg BID PO 03/06/25 22:00 03/13/25 21:59 03/07/25 09:16 2.5 MG objective Vitals and nursing notes reviewed. General Appearance: In no acute distress. HEENT: Atraumatic, PERRLA, Mucous membr. moist/pink Respiratory: Diminished breath sounds present. No wheezing. Cardiovascular: Regular rate, Normal S1, Normal S2 Abdominal: Normal bowel sounds, Soft, No tenderness Extremities: No clubbing, No cyanosis, No edema, Normal pulses, Other (right arm fistula) Skin: No rashes, No breakdown, No significant lesion Neuro: Alert, Oriented X3, Normal speech Psych/Mental Status: Mental status NL, Mood NL laboratory and microbiology Laboratory Tests 03/06/25 05:43 03/05/25 11:57 Test 03/05/25 11:57 Range/Units Serum Glucose 131 H 74-106 mg/dL Problem List Acute hypoxic respiratory failure Chest pain Elevated troponin ESRD on HD Assessment/Plan Agree with current supportive medical care. Cardiology and Pulmonary Medicine following. Pending thoracentesis. HD- 03/07. Lasix 20 mg PO daily. IV antibiotics. Renal diet. Continued on Eliquis. Additional plan as per the hospital course. Dietary Evaluation Review Comments: Encourage and monitor PO intake to meet his needs Reinforce dietary sodium restrition Monitor cholesterol levels Expected Outcomes/Goals: No wt loss, fluid/electolyte in balance Plan discussed with: Patient, Other (RN) HARJINDER RUTHERFORD DO Mar 07, 2025 19:27
--- NOTE | 2025-03-07 22:37 | DVHPN2 ---
Subjective DOS: 03/07/2025 Patient seen and examined at bedside. Remains on supplemental oxygen Overnight events reviewed. Reviewed: Care Plan, H&P, Labs, Medications, Previous Orders, Radiology Changes from previous H/P or p: No Changes Eyes: No Pain, No Vision change, No Conjunctivae inflammation, No Eyelid inflammation, No Other, No Redness ENT: No Ear pain, No Ear discharge, No Nose pain, No Nose discharge, No Nose congestion, No Mouth pain, No Mouth swelling, No Throat pain, No Throat swelling, No Other Cardiovascular: Chest Pain; No Palpitations, No Orthopnea, No Paroxysmal Noc. Dyspnea, No Edema, No Lt Headedness, No Other Respiratory: No Cough, No Dry; Shortness of breath, SOB with excertion; No Wheezing, No Hemoptysis, No Pleuritic Pain, No Sputum, No Other Gastrointestinal: No Nausea, No Vomiting, No Abdominal Pain, No Diarrhea, No Constipation, No Melena, No Hematochezia, No Other Genitourinary: No Dysuria, No Frequency, No Incontinence, No Hematuria, No Retention, No Other Musculoskeletal: No other, No neck pain, No shoulder pain, No arm pain, No back pain, No hand pain, No leg pain, No foot pain Skin: No Rash, No Lesions, No Jaundice, No Bruising, No Other Objective Vitals Vital Signs Date Time Temp Pulse Resp B/P (MAP) Pulse Ox O2 Delivery O2 Flow Rate FiO2 03/07/25 21:56 160/72 03/07/25 21:38 78 18 03/07/25 16:20 97.9 96 97.9 03/07/25 10:00 Mask 10.0 03/07/25 10:00 99 Intake/Output Intake and Output 03/07/25 07:00 Intake Total 920 ml Output Total 0 ml Balance 920 ml Intake Oral 820 ml IV Total 100 ml Output Urine Total 0 ml Exam Gen.: Patient lying in bed in no apparent distress. On supplemental oxygen. Head: Normocephalic, atraumatic. Eyes: EOMI/PERRLA. Ears: Normal hearing. Normal anatomy. Neck/trachea: Trachea midline, supple. Nose: Normal external anatomy. Mouth: Moist mucous membranes. Chest: Decreased air entry bilaterally. No wheezing or rhonchi. Cardiovascular: Positive S1, positive S2. Regular rate and rhythm. Abdomen: Positive bowel sounds in all 4 quadrants. Soft, non-tender, non- distended. : Deferred. Rectal: Deferred. Skin: Warm, dry. Intact. Extremities: 2+ radial pulses bilaterally. No lower extremity edema. Neuro: Awake, alert, oriented x3. No gross motor or sensory deficits. Cranial nerves II through XII intact. Gait not assessed. General Appearance: Alert, Oriented X3 HEENT: Atraumatic, PERRLA, EOMI, Mucous membr. moist/pink Lungs: Clear to auscultation, Normal air movement Cardiovascular: Regular rate, Normal S1, Normal S2, No murmurs, Gallops, Rubs Abdomen: Normal bowel sounds, Soft, No tenderness Extremities: No edema Neuro: Cranial nerves 3-12 NL Psych/Mental Status: Mental status NL Medications Current Medications Medications Dose Ordered Sig/Nereyda Route Start Time Stop Time Status Last Admin Dose Admin Sodium Chloride 10 ml Q8HR IV 02/26/25 22:00 03/07/25 22:01 10 ML Ondansetron HCl 4 mg Q4HP PRN IV 02/26/25 15:30 03/03/25 18:25 4 MG Docusate Sodium 100 mg BIDPRN PRN PO 02/26/25 15:30 02/27/25 17:40 100 MG Acetaminophen 650 mg Q6HP PRN PO 02/26/25 15:30 03/03/25 10:11 650 MG Morphine Sulfate 2 mg Q4HPRN PRN IV 02/26/25 15:30 Hold Nitroglycerin 0.4 mg Q5MINP PRN SL 02/26/25 15:30 03/03/25 10:31 0.4 MG Bupropion HCl 150 mg DAILY PO 02/27/25 10:00 03/07/25 09:17 150 MG Clonidine HCl 0.1 mg Q8HPRN PRN PO 02/26/25 15:30 03/04/25 00:45 0.1 MG Duloxetine HCl 30 mg DAILY PO 02/27/25 10:00 03/07/25 09:14 30 MG Meclizine HCl 25 mg BIDP PRN PO 02/26/25 15:30 02/27/25 17:36 25 MG Minoxidil 2.5 mg BID PO 02/26/25 22:00 03/07/25 21:36 2.5 MG Pantoprazole Sodium 40 mg DAILY PO 02/27/25 10:00 03/07/25 09:13 40 MG Trazodone HCl 50 mg HS PO 02/26/25 22:00 03/07/25 21:35 50 MG Atorvastatin Calcium 80 mg HS PO 02/26/25 22:00 03/07/25 21:36 80 MG Patient Own Medication 1 tab BID PO 02/26/25 22:00 Hold Donepezil HCl 5 mg DAILY PO 02/27/25 10:00 03/06/25 11:17 5 MG Ipratropium [place] 0.5 mg Q4HPRN PRN NEB 02/26/25 16:15 03/07/25 09:25 0.5 MG Albuterol 2.5 mg Q4HPRN PRN NEB 02/26/25 16:15 03/07/25 09:25 2.5 MG Diagnostic Test (Pha) 1 strip ACHS 02/26/25 22:00 03/07/25 22:00 1 STRIP Insulin Human Regular HS SC 02/26/25 22:00 03/06/25 21:38 2 UNITS Insulin Human Regular AC SC 02/27/25 07:00 03/07/25 18:34 2 UNITS Dextrose 50 ml UD PRN IV 02/26/25 17:15 Doxycycline Hyclate 100 ml @ 50 mls/hr Q12H IV 02/28/25 11:00 03/07/25 13:56 50 MLS/HR Enteral Nutritional Formula 240 ml TIDWM PO 02/28/25 12:00 03/07/25 18:29 240 ML Lactulose 30 ml DAILYPRN PRN PO 03/01/25 10:00 03/04/25 17:47 30 ML Hydromorphone HCl 0.5 mg Q4HPRN PRN IV 03/03/25 11:45 03/07/25 21:38 0.5 MG Ceftazidime/ Dextrose 0.5 gm/ Sodium Chloride 50 ml @ 50 mls/hr DAILY IV 03/04/25 10:00 03/06/25 10:00 50 MLS/HR Nifedipine 60 mg BID PO 03/04/25 22:00 03/07/25 09:14 60 MG Hydralazine HCl 25 mg Q12HR PO 03/04/25 22:00 03/06/25 21:26 25 MG Furosemide 20 mg DAILY PO 03/06/25 10:00 03/07/25 09:14 20 MG Apixaban 2.5 mg BID PO 03/06/25 22:00 03/13/25 21:59 03/07/25 21:35 2.5 MG Laboratory Results Laboratory Tests 03/05/25 11:57 03/06/25 05:43 Microbiology Microbiology Date/Time Source Procedure Growth Status 02/28/25 10:03 Sputum Gram Stain - Final Complete 02/28/25 10:03 Respiratory Culture - Final Enterobacter cloacae Complete 02/27/25 06:33 Nose MRSA Screen - Final Complete Assessment/Plan Assessment/Plan Impression: Acute on chronic hypoxic respiratory failure Elevated troponin Pulmonary edema Pulmonary vascular congestion End-stage renal disease on hemodialysis Can not rule out underlying pneumonia Events: Remains on supplemental oxygen On 10 LPM simple mask Taper O2 as tolerated Chest x-ray shows cardiomegaly and pulmonary vascular congestion. Diffuse interstitial prominence of the lungs. Small bilateral pleural effusions. No pneumothorax. Findings c/w CHF and volume overload. Note, patient refused BiPAP - encouraged use. Patient underwent right thoracentesis today with removal of 5 mL of sanguineous fluid. Please see separate procedure note for details. Follow up pleural fluid cultures and cytology Continue antibiotics Continue bronchodilators Incentive spirometry Blood pressure control. Accu-Cheks, ISS. Protonix for GI prophylaxis Monitor hemoglobin - currently 7.6 g/dL Transfuse if less than 7.0 g/dL. Hemodialysis per Nephrology - plan for HD today. Diurese with Lasix as tolerated Monitor renal function. Monitor electrolytes. Supplement as necessary. Monitor ins and outs. CT angio on 03/05/25 demonstrates no evidence of pulmonary embolism. CHF/volume overload, with interstitial pulmonary edema, small bilateral pleural effusions, chest wall edema, and mild cardiomegaly. [id number] 3-vessel calcified coronary artery disease and mild aortic valve calcification. Bilateral hilar, mediastinal, and supraclavicular lymphadenopathy, nonspecific though could be reactive or passive congestion. Labs and imaging reviewed. Rest of plan as noted below. Plan: Supplemental oxygen Titrate to keep O2 saturation above 92%. Encourage use of BiPAP Complete antibiotic course. Prior sputum cultures grew moderate yeast, few GPC and few gram positive rods. MRSA negative Bronchodilators PRN. Monitor renal function Hemodialysis per nephrology Monitor electrolytes Supplement as necessary. Monitor ins and outs Monitor hemoglobin Transfuse if less than 7.0 g/dL. Arrange for stationary concentrator at home that goes up to 10 L/min Social work Services consultation placed GI prophylaxis-Protonix Prognosis: Poor given multiple comorbidities. Rest of plan per hospitalist and other consultants. Thank you Dr. Stinson for allowing me to participate in this patient's care. Further recommendations will depend on patient's clinical course. Please do not hesitate to contact me if you have any questions or concerns. This medical document was created using an electronic medical record system with [employer] dictation system. Although this document has been carefully reviewed, there may still be some phonetic and typographical errors. These areas are purely typographical due to imperfections of the software programs, and do not reflect any compromise in the patient's medical care. Plan discussed with: Patient, Other (RN Aris) My Orders Orders - JUAN SALDAÑA MD Procedure Category Date Status Time Obtain Consent For: ORDERS 03/07/25 Transmitted 14:24 Body Fluid Culture W/ YARELI 03/07/25 In Process GS 17:16 Visit Coding Pulmonary Billing Provider: JUAN SALDAÑA MD Date of Service if different f: Mar 07, 2025 Common Visit Codes: [id number] INP/OBS CARE(HIGH) JUAN SALDAÑA MD Mar 07, 2025 22:37
--- NOTE | 2025-03-07 22:40 | DVHNC2 ---
Procedure - Thoracentesis Procedure Note under ultrasound guidance INDICATION: Right sided pleural effusion PHYSICIAN: Bruce Sommer MD CONSENT: Consent was obtained from patient/patient's HCP prior to the procedure. Indications, risks, and benefits were explained at length. Time out time: Risks and benefits of the procedure and sedation options and risks were discussed with the patient/patient's HCP. All questions were answered and informed consent was obtained. Patient identification and proposed procedure were verified prior to the procedure by the physician, and the nurse in the patient's room. PROCEDURE SUMMARY: A time out was performed and the chest x-ray was reviewed, the appropriate side was confirmed and marked. My hands were washed immediately prior to the procedure. I wore a surgical cap, mask with protective eyewear, sterile gown and sterile gloves throughout the procedure. The patient was prepped and draped in a sterile manner using chlorhexidine scrub after the appropriate level was percussed and confirmed by ultrasound. 1% lidocaine was used to anesthesize the skin, subcutaneous tissue, superior aspect of the rib periosteum and parietal pleura. A finder needle was then introduced over the superior aspect of the rib to locate the pleural fluid; yellow-straw colored fluid was aspirated at a depth of approximately 2 cm. A 10-blade scalpel was used to malik the skin at the insertion site. Under real-time ultrasound guidance, the 5 [place] Yueh Thora-Centesis needle was then introduced through the skin incision into the pleural space using negative aspiration pressure. The thoracentesis catheter was then threaded without difficulty. 5 ml of sanguineous fluid was removed without difficulty. The catheter was then removed. No immediate complications were noted during the procedure. Using the linear probe, lung sliding was noted anteriorly and posteriorly and are an indication of no pneumothorax. A post-procedure chest x-ray is pending at the time of this note. The fluid will be sent for studies cell count and differential, fluid LDH, glucose, albumin and total protein, gram stain and culture, and cytology. Estimated blood loss is less than 5 mL. CPT: 01415 Visit Coding Pulmonary Billing Provider: JUAN SOMMER MD Date of Service if different f: Mar 07, 2025 Common Visit Codes: PROCEDURE ONLY Procedure Codes: [id number] W/PUNCT (Thoracentesis with imaging CPT: 31022) JUAN SOMMER MD Mar 07, 2025 22:40
[2025-03-08] VITALS (10 sets, daily range): BP systolic 145–188; BP diastolic 69–99; PULSE 76–86; RESP 16–18; TEMP 97.9–98.4; O2SAT 91–99
[2025-03-08 06:41] LABS: Albumin 3.9 g/dL (3.2-4.8); Alkaline Phosphatase 73 U/L (46-116); Anion Gap 10 (5-15); BUN/Creatinine Ratio 4.7 (10.0-20.0); Blood Urea Nitrogen 18 mg/dL (9-23); Calcium 9.3 mg/dL (8.7-10.4); Chloride 98 mmol/L (98-107); Glucose 79 mg/dL (74-106); Potassium 4.9 mmol/L (3.5-5.1); Sodium 140 mmol/L (136-145); Total Protein 7.4 g/dL (5.7-8.2)
[2025-03-08 06:42] LABS: Bilirubin, Total 0.4 mg/dL (0.2-1.0)
[2025-03-08 06:47] LABS: Alanine Aminotransferase < 9 U/L (7-40); Carbon Dioxide 32 mmol/L (20-31)
--- NOTE | 2025-03-08 10:58 | DVHPN2 ---
Subjective The patient is seen and examined at bedside. Complains of shortness of breath but feel better today. complains that he has lots of blood oozing out of his hand after dialysis. She ask if we can cut down eliquis. Reviewed: Care Plan, H&P, Labs, Medications, Previous Orders, Radiology Changes from previous H/P or p: No Changes Eyes: No Pain, No Vision change, No Conjunctivae inflammation, No Eyelid inflammation, No Other, No Redness ENT: No Ear pain, No Ear discharge, No Nose pain, No Nose discharge, No Nose congestion, No Mouth pain, No Mouth swelling, No Throat pain, No Throat swelling, No Other Cardiovascular: Chest Pain; No Palpitations, No Orthopnea, No Paroxysmal Noc. Dyspnea, No Edema, No Lt Headedness, No Other Respiratory: No Cough, No Dry; Shortness of breath, SOB with excertion; No Wheezing, No Hemoptysis, No Pleuritic Pain, No Sputum, No Other Gastrointestinal: No Nausea, No Vomiting, No Abdominal Pain, No Diarrhea, No Constipation, No Melena, No Hematochezia, No Other Genitourinary: No Dysuria, No Frequency, No Incontinence, No Hematuria, No Retention, No Other Musculoskeletal: No other, No neck pain, No shoulder pain, No arm pain, No back pain, No hand pain, No leg pain, No foot pain Skin: No Rash, No Lesions, No Jaundice, No Bruising, No Other Objective Vitals Vital Signs Date Time Temp Pulse Resp B/P (MAP) Pulse Ox O2 Delivery O2 Flow Rate FiO2 03/08/25 09:19 82 18 173/71 03/08/25 08:46 98.1 96 98.1 03/08/25 06:01 Mask 8.0 03/08/25 06:01 60 Intake/Output Intake and Output 03/08/25 07:00 Intake Total 660 ml Balance 660 ml Intake Oral 560 ml IV Total 100 ml General Appearance: Alert, Oriented X3 HEENT: Atraumatic, PERRLA, EOMI, Mucous membr. moist/pink Lungs: Clear to auscultation, Normal air movement Cardiovascular: Regular rate, Normal S1, Normal S2, No murmurs, Gallops, Rubs Abdomen: Normal bowel sounds, Soft, No tenderness Extremities: No edema Neuro: Cranial nerves 3-12 NL Psych/Mental Status: Mental status NL Medications Current Medications Medications Dose Ordered Sig/Nereyda Route Start Time Stop Time Status Last Admin Dose Admin Sodium Chloride 10 ml Q8HR IV 02/26/25 22:00 03/07/25 22:01 10 ML Ondansetron HCl 4 mg Q4HP PRN IV 02/26/25 15:30 03/03/25 18:25 4 MG Docusate Sodium 100 mg BIDPRN PRN PO 02/26/25 15:30 02/27/25 17:40 100 MG Acetaminophen 650 mg Q6HP PRN PO 02/26/25 15:30 03/03/25 10:11 650 MG Morphine Sulfate 2 mg Q4HPRN PRN IV 02/26/25 15:30 Hold Nitroglycerin 0.4 mg Q5MINP PRN SL 02/26/25 15:30 03/03/25 10:31 0.4 MG Bupropion HCl 150 mg DAILY PO 02/27/25 10:00 03/08/25 10:34 150 MG Clonidine HCl 0.1 mg Q8HPRN PRN PO 02/26/25 15:30 03/04/25 00:45 0.1 MG Duloxetine HCl 30 mg DAILY PO 02/27/25 10:00 03/08/25 10:34 30 MG Meclizine HCl 25 mg BIDP PRN PO 02/26/25 15:30 02/27/25 17:36 25 MG Minoxidil 2.5 mg BID PO 02/26/25 22:00 03/07/25 21:36 2.5 MG Pantoprazole Sodium 40 mg DAILY PO 02/27/25 10:00 03/08/25 10:35 40 MG Trazodone HCl 50 mg HS PO 02/26/25 22:00 03/07/25 21:35 50 MG Atorvastatin Calcium 80 mg HS PO 02/26/25 22:00 03/07/25 21:36 80 MG Patient Own Medication 1 tab BID PO 02/26/25 22:00 Hold Donepezil HCl 5 mg DAILY PO 02/27/25 10:00 03/08/25 10:34 5 MG Ipratropium [place] 0.5 mg Q4HPRN PRN NEB 02/26/25 16:15 03/07/25 09:25 0.5 MG Albuterol 2.5 mg Q4HPRN PRN NEB 02/26/25 16:15 03/07/25 09:25 2.5 MG Diagnostic Test (Pha) 1 strip ACHS 02/26/25 22:00 03/08/25 07:00 1 STRIP Insulin Human Regular HS SC 02/26/25 22:00 03/06/25 21:38 2 UNITS Insulin Human Regular AC SC 02/27/25 07:00 03/07/25 18:34 2 UNITS Dextrose 50 ml UD PRN IV 02/26/25 17:15 Doxycycline Hyclate 100 ml @ 50 mls/hr Q12H IV 02/28/25 11:00 03/08/25 10:34 50 MLS/HR Enteral Nutritional Formula 240 ml TIDWM PO 02/28/25 12:00 03/08/25 08:00 240 ML Lactulose 30 ml DAILYPRN PRN PO 03/01/25 10:00 03/04/25 17:47 30 ML Hydromorphone HCl 0.5 mg Q4HPRN PRN IV 03/03/25 11:45 03/08/25 08:44 0.5 MG Ceftazidime/ Dextrose 0.5 gm/ Sodium Chloride 50 ml @ 50 mls/hr DAILY IV 03/04/25 10:00 03/08/25 09:20 50 MLS/HR Nifedipine 60 mg BID PO 03/04/25 22:00 03/07/25 09:14 60 MG Hydralazine HCl 25 mg Q12HR PO 03/04/25 22:00 03/08/25 08:44 25 MG Furosemide 20 mg DAILY PO 03/06/25 10:00 03/07/25 09:14 20 MG Apixaban 2.5 mg BID PO 03/06/25 22:00 03/13/25 21:59 03/07/25 21:35 2.5 MG Laboratory Results Laboratory Tests 03/06/25 05:43 03/08/25 05:14 Chemistry Test 03/08/25 05:14 Albumin 3.9 g/dL (3.2-4.8) Calcium Level 9.3 mg/dL (8.7-10.4) Total Protein 7.4 g/dL (5.7-8.2) LFT Test 03/08/25 05:14 Alanine Aminotransferase (ALT) < 9 U/L (7-40) Alkaline Phosphatase 73 U/L (46-116) Aspartate Amino Transferase (AST) 19 U/L (13-40) Total Bilirubin 0.4 mg/dL (0.2-1.0) Microbiology Microbiology Date/Time Source Procedure Growth Status 02/28/25 10:03 Sputum Gram Stain - Final Complete 02/28/25 10:03 Respiratory Culture - Final Enterobacter cloacae Complete 02/27/25 06:33 Nose MRSA Screen - Final Complete Assessment/Plan Assessment/Plan Acute hypoxic respiratory failure, resolved Chronic respiratory failure on home O2 ESRD COPD DM2 HTN Mixed hyperlipidemia Elevated troponin probable 2nd to NSTEMI type 2 DVT of right upper extremities Superficial thrombus of left upper extremities. Pancreatic cystic mass. Anemia PLAN: Continue current management. Continue with Oxygen Continue HD per schedule Continue IV antibiotic. Waiting for bulk fluids handler Waiting for sputum culture. Stat trop is elevated. Will check trop q6h x 3 Stat EKG Appreciate Loss Prevention Guard in put No further cardiac work up CTA of chest show no PE US show DVT of right UE with attach to lymph node. Start on eliquis yesterday. Stop heparin drip. Will monitor. concern because of history of GI bleed 1 year ago. Explains to her that he need to prevent more clot in his arm. but I can stop the eliquis if he wish. He need to understand the risk of DVT and possible PE if not on anticoagulation. The patient state that he want to be on anticoagulation, eliquis for now. Hb stable at 7.5 today. No melena, no BRBPR DW patient and regarding to the lymph node and cystic mass. [facility] for further work up on the mass in March 2025. This medical document was created using an electronic medical record system with [employer] computerized dictation system. Although this document has been carefully reviewed, there may still be some phonetic and typographical errors. These areas are purely typographical due to imperfections of the software programs, and do not reflect any compromise in the patient's medical care. Plan discussed with: Patient, Spouse Date of Service: Mar 08, 2025 Billing Provider: GERMAINE ULLOA MD Common Visit Codes: [id number] INP/OBS CARE(HIGH) GERMAINE ULLOA MD Mar 08, 2025 10:58
--- NOTE | 2025-03-08 13:35 | DVHPN2 ---
Progress Note - Dictate Date Seen: Mar 08, 2025 Has the PT tested + for MRSA If YES, has PT been informed?: No Medical Necessity Reason Pt with a Central, PICC or Fol: No vital signs Vital Sign Date Time Temp Pulse Resp B/P (MAP) Pulse Ox O2 Delivery O2 Flow Rate FiO2 03/08/25 12:40 98.4 82 18 184/99 (127) 99 98.4 03/08/25 06:01 Mask 8.0 03/08/25 06:01 60 Total Intake and Output 03/07/25 03/07/25 03/08/25 15:00 23:00 07:00 Intake Total 100 ml 560 ml 0 ml Balance 100 ml 560 ml 0 ml medications Current Medications Medications Dose Ordered Sig/Nereyda Route Start Time Stop Time Status Last Admin Dose Admin Sodium Chloride 10 ml Q8HR IV 02/26/25 22:00 03/07/25 22:01 10 ML Ondansetron HCl 4 mg Q4HP PRN IV 02/26/25 15:30 03/03/25 18:25 4 MG Docusate Sodium 100 mg BIDPRN PRN PO 02/26/25 15:30 02/27/25 17:40 100 MG Acetaminophen 650 mg Q6HP PRN PO 02/26/25 15:30 03/03/25 10:11 650 MG Morphine Sulfate 2 mg Q4HPRN PRN IV 02/26/25 15:30 Hold Nitroglycerin 0.4 mg Q5MINP PRN SL 02/26/25 15:30 03/03/25 10:31 0.4 MG Bupropion HCl 150 mg DAILY PO 02/27/25 10:00 03/08/25 10:34 150 MG Clonidine HCl 0.1 mg Q8HPRN PRN PO 02/26/25 15:30 03/04/25 00:45 0.1 MG Duloxetine HCl 30 mg DAILY PO 02/27/25 10:00 03/08/25 10:34 30 MG Meclizine HCl 25 mg BIDP PRN PO 02/26/25 15:30 02/27/25 17:36 25 MG Minoxidil 2.5 mg BID PO 02/26/25 22:00 03/07/25 21:36 2.5 MG Pantoprazole Sodium 40 mg DAILY PO 02/27/25 10:00 03/08/25 10:35 40 MG Trazodone HCl 50 mg HS PO 02/26/25 22:00 03/07/25 21:35 50 MG Atorvastatin Calcium 80 mg HS PO 02/26/25 22:00 03/07/25 21:36 80 MG Patient Own Medication 1 tab BID PO 02/26/25 22:00 Hold Donepezil HCl 5 mg DAILY PO 02/27/25 10:00 03/08/25 10:34 5 MG Ipratropium [facility] 0.5 mg Q4HPRN PRN NEB 02/26/25 16:15 03/07/25 09:25 0.5 MG Albuterol 2.5 mg Q4HPRN PRN NEB 02/26/25 16:15 03/07/25 09:25 2.5 MG Diagnostic Test (Pha) 1 strip ACHS 02/26/25 22:00 03/08/25 11:32 1 STRIP Insulin Human Regular HS SC 02/26/25 22:00 03/06/25 21:38 2 UNITS Insulin Human Regular AC SC 02/27/25 07:00 03/07/25 18:34 2 UNITS Dextrose 50 ml UD PRN IV 02/26/25 17:15 Doxycycline Hyclate 100 ml @ 50 mls/hr Q12H IV 02/28/25 11:00 03/08/25 10:34 50 MLS/HR Enteral Nutritional Formula 240 ml TIDWM PO 02/28/25 12:00 03/08/25 08:00 240 ML Lactulose 30 ml DAILYPRN PRN PO 03/01/25 10:00 03/04/25 17:47 30 ML Hydromorphone HCl 0.5 mg Q4HPRN PRN IV 03/03/25 11:45 03/08/25 08:44 0.5 MG Ceftazidime/ Dextrose 0.5 gm/ Sodium Chloride 50 ml @ 50 mls/hr DAILY IV 03/04/25 10:00 03/08/25 09:20 50 MLS/HR Nifedipine 60 mg BID PO 03/04/25 22:00 03/07/25 09:14 60 MG Hydralazine HCl 25 mg Q12HR PO 03/04/25 22:00 03/08/25 08:44 25 MG Furosemide 20 mg DAILY PO 03/06/25 10:00 03/07/25 09:14 20 MG Apixaban 2.5 mg BID PO 03/06/25 22:00 03/13/25 21:59 03/07/25 21:35 2.5 MG laboratory and microbiology Laboratory Tests 03/08/25 05:14 03/06/25 05:43 Test 03/08/25 05:14 Range/Units Serum Glucose 79 74-106 mg/dL Assessment/Plan Assessment/Plan This is an 79-year old male known outside to our practice who initially presented 02/26/2025 with reported shortness of breath and chest discomfort. Patient himself does have underlying history of chronic respiratory failure on home oxygen therapy and reports indicate on the day of initial presentation, patient had went for routine testing outside within our practice and had been reported to have oxygen saturations within the 50% range despite use of his portable oxygen concentrator which EMS had been called and patient was later transported to present facility for further evaluation and management. Throughout course of present admission patient had been admitted with acute on chronic hypoxic respiratory failure which patient does have known history of COPD and has been managed by pulmonology services throughout present hospital course. Chest imaging had revealed evidence for pulmonary vascular congestion which patient does have underlying history of chronic diastolic heart failure with last known LVEF of 60% as per Echocardiogram findings 11/28/2024. Right ventricular systolic pressure at that time was noted to be 55mmHg consistent with underlying pulmonary hypertension which it is further noted patient himself does have history of ESRD on hemodialysis for which fluid volume is managed by Nephrology services via hemodialysis. Patient does have underlying anemia. Serial high sensitive troponins have revealed flat/mild elevation with a peak level of 112 that had subsequently revealed gradual downtrend. 12-lead electrocardiogram had revealed sinus rhythm, first degree AVB, right bundle branch block, prolonged QTC, however with no evidence for acute ischemic changes. Of note, patient does have underlying history of coronary artery disease and is status post previous PCI with PERLA x 1 involving ostial LAD 08/04/2023. Cardiac catheterization at that time had revealed presence of a patent stent involving mLAD as well as type II pulmonary hypertension. Patient does have known history of previously provoked DVT involving subclavian/neck and had been on low-dose Xarelto as outpatient however upon review of outside records, AC therapy had recently been discontinued and patient has been kept on low-dose Aspirin given previous PCI. Of note, throughout course of present admission, it is notable that patient has been observed to have transient hypertensive events consistent with hypertensive urgency which could have attributed to patients intermittent chest pains. Despite the above, at present time of consultation, patient himself reports chest pain has now subsided. Denies any palpitations, dizziness, syncope, or any further cardiac related symptoms. Cardiology services were involved late within the admission (on ) by primary team request for cardiac aspects of care. Past medical history includes end-stage renal disease on hemodialysis, old history of CVA (2018), poor functional capacity, coronary artery disease and status post PCI (last stent in July 2023, ostial LAD), COPD, obstructive sleep apnea, diabetes mellitus, hypertension, anemia (history of repeated transfusions), D-CHF, SVT, pulmonary hypertension (considered type 2), history of pancytopenia (resolved later), history of DVT in upper extremity, dementia, old history of underlying RBBB, peripheral artery disease, right external iliac artery aneurysm, history of CDT colitis, repeated/significant GI bleedings, 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 Past medical history also includes DVT in the right upper extremity, history of septic shock, history of pneumonia, sick sinus syndrome and status post pacemaker (Micra/Medtronic) implantation. Echocardiogram of November 28, 2024 revealed Left ventricle: Mild concentric left ventricular hypertrophy was seen. LVEF was around 60%. There was no gross wall motion abnormality. Pseudo normal LV diastolic dysfunction was observed. Right ventricle: Right ventricle was dilated with preserved systolic function. Both atria were dilated. Aortic valve: Aortic sclerosis with no stenosis was observed. Mild aortic insufficiencywas seen. There was mild mitral regurgitation. There was [id number] tricuspid regurgitation. Pulmonary valve was not well visualized. Right ventricular systolic pressure was assessed at 55 mm Hg. There was no pericardial effusion. Echocardiogram of 2024 revealed: EF of 60%, pseudonormal LV filling, dilated RV, VIVIANA, mild AI, Mild MR, mild to moderate TR and RVSP of 55 mmHg. Echocardiogram of September 11, 2024 (performed in the office) reported ejection fraction of 55-60%, pseudo-normal left ventricular diastolic dysfunction, mild biatrial enlargement, mild mitral regurgitation, tricuspid regurgitation, atrial insufficiency, mild mitral annular calcification and right ventricular systolic pressure of less than 35 mm Hg Echocardiogram of June 05, 2024 reported mild concentric left ventricular hypertrophy, ejection fraction of 45-50%, mild biatrial enlargement, mild aortic insufficiency/tricuspid regurgitation/trace mitral regurgitation. Right ventricular systolic pressure of 48 mm Hg. Echocardiogram of January 2024 had revealed: Ejection fraction of 40-45%, anterior/anteroseptal hypokinesia, biatrial enlargement, right ventricular systolic pressure 45 mm Hg. Echocardiogram October 28, 2023 had revealed mild concentric left ventricular hypertrophy, LVEF of 52% with mild diffuse hypokinesis, dilated RV/LA/RA, [id number] aortic insufficiency, mild MR, moderate TR and right ventricular systolic pressure of 60 mm Hg Echocardiogram of November 08, 2023 (performed in [facility]) had reported: LVEF of 50%, [id number] TR, mild aortic insufficiency and right ventricular systolic pressure of 49 mm Hg Echocardiogram of September 15, 2023 (performed and [facility]) revealed ejection fraction of 45-50% Echocardiogram of March 22, 2023 (performed in the office) revealed ejection fraction of 65-70%, mild concentric left ventricular hypertrophy, moderate biatrial enlargement, [id number] MR/TR, mild AI/PI and right ventricular systolic pressure of 66 mm Hg. Left heart catheterization on August 04, 2023 revealed: 1 vessel coronary artery disease and status post PCI (drug-eluting stent deployment of ostial LAD, LVEF of 60% with increased LVEDP, patent stent in mid LAD, type 2 pulmonary hypertension. CTA of lungs: 1. No evidence of pulmonary embolism. 2. CHF/ volume overload, with interstitial pulmonary edema, small bilateral pleural effusions, chest wall edema, and mild cardiomegaly. 3. Jqhv-dr-qgcioxnr 3-vessel calcified coronary artery disease and mild aortic valve calcification. 4. Bilateral hilar, mediastinal, and supraclavicular lymphadenopathy, nonspecific though could be reactive or passive congestion. Consider follow-up CT in 3 months to re-evaluate this finding. 5. Persistent cystic mass in the tail of the pancreas without significant change. Follow-up MRI was previously recommended on 11/30/2024 Venous duplex of bilateral lower ext: IMPRESSION: NO SONOGRAPHIC EVIDENCE FOR DEEP VENOUS THROMBOSIS IN THE BILATERAL LOWER EXTREMITY VEINS. Venous duplex of bilateral upper ext: IMPRESSION: 1. Positive for Acute appearing deep vein thrombus in the right upper extremity internal jugular vein. 2. Positive for Acute Occlusive superficial femoral vein thrombus in the left upper extremity basilic vein. 3. Indeterminate hypoechoic structure adjacent to the right axillary vein which could reflect an indeterminate lymph node. Follow- up was recommended on the separately dictated same day CTA chest. ASSESSMENT: Acute hypoxemic respiratory failure Acute on chronic diastolic heart failure Concern for underlying COPD exacerbation Fluid overload, with known history of ESRD on HD Underlying history of type II pulmonary hypertension Anemia of chronic disease, in the setting of ESRD on HD Uncontrolled hypertension with evidence for hypertensive urgency Minimal/flat elevation of HS troponins, assessed to reflect type II physiology due to above Coronary artery disease, status post previous PCI's x 2 Presence of Medtronic Micra permanent pacemaker Previous history of provoked DVT Old history of underlying RBBB Old history of previous CVA Obstructive sleep apnea Diabetes mellitus Hyperlipidemia DVT: upper ext CARDIAC SUGGESTION FOR MANAGEMENT: Awaiting device interrogation (MDT) Recognizing clinical presentation/objective findings, ACS at this point is not considered Minimal/flat elevation of HS troponins are assessed to reflect type II physiology at this point No indication warranted for repeat ischemic workup at present time of admission Proceed with optimized medical therapy and aggressive risk factor modification Fluid volume management as per nephrology services via hemodialysis Proceed with close observation for overt signs of fluid overload Proceed with strict intakes, outputs, and daily weights Proceed with supplemental oxygen as warranted On empiric IV antibiotic therapy as per primary Avoidance of QTC prolonging agents advised Follow up Pulmonology recommendations Hydralazine 25mg twice daily Atorvastatin 40mg once daily Nifedipine 60mg once daily Oral Lasix Recognizing PCI > 1 year ago in a patient with chronic anemia with previous GI bleed found to have acute appearing DVT involving RUE requiring AC discontinuation of previous Aspirin 81mg daily can be justified with consideration of pursuing oral AC when stable. Initiated on low-dose Eliquis The above was discussed at length with daughter Teresa which she remains agreeable to the plan of care To proceed with close observation of HGB levels and for any overt signs of bleeding during the interim Patient does have appointment with [facility] as outpatient for further work up on previously discovered pancreatic tail cystic mass in March 2025. Evaluation and management of pancreatic findings as per primary team Consider GI/surgery evaluation for pancreatic tail cystic mass Consider Imaging of pancreas: MRI (as suggested by Radiology). PM is MRI conditional. Management of concurrent medical conditions per primary team Management of comorbidities as per primary team Proceed with close rate and rhythm surveillance Proceed with close hemodynamic surveillance Proceed with optimized blood pressure control Transfuse to sustain HGB level above 7.0 Sustain Magnesium level greater than 2.0 Sustain Potassium level greater than 4.0 Follow up renal function and electrolytes Management in telemetry Follow up peoplesoft consultant recommendations Will proceed to follow from a cardiac perspective Further recommendations per clinical progression All available diagnostic labs, EKG's, and images were personally reviewed Plan of care discussed with and agreed upon by patient / primary RN Prognosis: Guarded Thank you for allowing me to participate in the care of this patient. Further recommendations based on patients clinical course and progression, primary attending, and other consultants. Will continue to follow with primary attending. If you have any questions or concerns, please do not hesitate to contact me. A total of 55 minutes was spent reviewing the patient record, examining the patient, making a diagnostic and therapeutic plan, discussing this plan with medical personnel, following up on diagnostic studies and following the patient for clinical stability excluding any and all procedures. At least 50% of this time was spent in direct, [id number] contact. Dietary Evaluation Review Comments: Encourage and monitor PO intake to meet his needs Reinforce dietary sodium restrition Monitor cholesterol levels Expected Outcomes/Goals: No wt loss, fluid/electolyte in balance Plan discussed with: Patient (patloc, daughter, primary rn) BLANE STONER Mar 08, 2025 13:35
[2025-03-08 15:23] LABS: INR 1.11 (0.9-1.15); Partial Thromboplastin Time 32.1 SEC (24.5-34.5); Prothrombin Time 11.6 sec (9.3-11.8)
--- NOTE | 2025-03-08 16:06 | DVHPN2 ---
Subjective DOS: 03/08/2025 Patient seen and examined at bedside. Remains on supplemental oxygen Overnight events reviewed. Unable to taper down o2. Reviewed: Care Plan, H&P, Labs, Medications, Previous Orders, Radiology Changes from previous H/P or p: No Changes Eyes: No Pain, No Vision change, No Conjunctivae inflammation, No Eyelid inflammation, No Other, No Redness ENT: No Ear pain, No Ear discharge, No Nose pain, No Nose discharge, No Nose congestion, No Mouth pain, No Mouth swelling, No Throat pain, No Throat swelling, No Other Cardiovascular: Chest Pain; No Palpitations, No Orthopnea, No Paroxysmal Noc. Dyspnea, No Edema, No Lt Headedness, No Other Respiratory: No Cough, No Dry; Shortness of breath, SOB with excertion; No Wheezing, No Hemoptysis, No Pleuritic Pain, No Sputum, No Other Gastrointestinal: No Nausea, No Vomiting, No Abdominal Pain, No Diarrhea, No Constipation, No Melena, No Hematochezia, No Other Genitourinary: No Dysuria, No Frequency, No Incontinence, No Hematuria, No Retention, No Other Musculoskeletal: No other, No neck pain, No shoulder pain, No arm pain, No back pain, No hand pain, No leg pain, No foot pain Skin: No Rash, No Lesions, No Jaundice, No Bruising, No Other Objective Vitals Vital Signs Date Time Temp Pulse Resp B/P (MAP) Pulse Ox O2 Delivery O2 Flow Rate FiO2 03/08/25 12:40 98.4 82 18 184/99 (127) 99 98.4 03/08/25 10:00 Simple Mask* 10 99 Intake/Output Intake and Output 03/08/25 07:00 Intake Total 660 ml Balance 660 ml Intake Oral 560 ml IV Total 100 ml Exam Gen.: Patient lying in bed in no apparent distress. On supplemental oxygen. Head: Normocephalic, atraumatic. Eyes: EOMI/PERRLA. Ears: Normal hearing. Normal anatomy. Neck/trachea: Trachea midline, supple. Nose: Normal external anatomy. Mouth: Moist mucous membranes. Chest: Decreased air entry bilaterally. No wheezing or rhonchi. Cardiovascular: Positive S1, positive S2. Regular rate and rhythm. Abdomen: Positive bowel sounds in all 4 quadrants. Soft, non-tender, non- distended. : Deferred. Rectal: Deferred. Skin: Warm, dry. Intact. Extremities: 2+ radial pulses bilaterally. No lower extremity edema. Neuro: Awake, alert, oriented x3. No gross motor or sensory deficits. Cranial nerves II through XII intact. Gait not assessed. General Appearance: Alert, Oriented X3 HEENT: Atraumatic, PERRLA, EOMI, Mucous membr. moist/pink Lungs: Clear to auscultation, Normal air movement Cardiovascular: Regular rate, Normal S1, Normal S2, No murmurs, Gallops, Rubs Abdomen: Normal bowel sounds, Soft, No tenderness Extremities: No edema Neuro: Cranial nerves 3-12 NL Psych/Mental Status: Mental status NL Medications Current Medications Medications Dose Ordered Sig/Nereyda Route Start Time Stop Time Status Last Admin Dose Admin Sodium Chloride 10 ml Q8HR IV 02/26/25 22:00 03/08/25 13:41 10 ML Ondansetron HCl 4 mg Q4HP PRN IV 02/26/25 15:30 03/03/25 18:25 4 MG Docusate Sodium 100 mg BIDPRN PRN PO 02/26/25 15:30 02/27/25 17:40 100 MG Acetaminophen 650 mg Q6HP PRN PO 02/26/25 15:30 03/03/25 10:11 650 MG Morphine Sulfate 2 mg Q4HPRN PRN IV 02/26/25 15:30 Hold Nitroglycerin 0.4 mg Q5MINP PRN SL 02/26/25 15:30 03/03/25 10:31 0.4 MG Bupropion HCl 150 mg DAILY PO 02/27/25 10:00 03/08/25 10:34 150 MG Clonidine HCl 0.1 mg Q8HPRN PRN PO 02/26/25 15:30 03/04/25 00:45 0.1 MG Duloxetine HCl 30 mg DAILY PO 02/27/25 10:00 03/08/25 10:34 30 MG Meclizine HCl 25 mg BIDP PRN PO 02/26/25 15:30 02/27/25 17:36 25 MG Minoxidil 2.5 mg BID PO 02/26/25 22:00 03/07/25 21:36 2.5 MG Pantoprazole Sodium 40 mg DAILY PO 02/27/25 10:00 03/08/25 10:35 40 MG Trazodone HCl 50 mg HS PO 02/26/25 22:00 03/07/25 21:35 50 MG Atorvastatin Calcium 80 mg HS PO 02/26/25 22:00 03/07/25 21:36 80 MG Patient Own Medication 1 tab BID PO 02/26/25 22:00 Hold Donepezil HCl 5 mg DAILY PO 02/27/25 10:00 03/08/25 10:34 5 MG Ipratropium [place] 0.5 mg Q4HPRN PRN NEB 02/26/25 16:15 03/07/25 09:25 0.5 MG Albuterol 2.5 mg Q4HPRN PRN NEB 02/26/25 16:15 03/07/25 09:25 2.5 MG Diagnostic Test (Pha) 1 strip ACHS 02/26/25 22:00 03/08/25 11:32 1 STRIP Insulin Human Regular HS SC 02/26/25 22:00 03/06/25 21:38 2 UNITS Insulin Human Regular AC SC 02/27/25 07:00 03/07/25 18:34 2 UNITS Dextrose 50 ml UD PRN IV 02/26/25 17:15 Doxycycline Hyclate 100 ml @ 50 mls/hr Q12H IV 02/28/25 11:00 03/08/25 10:34 50 MLS/HR Enteral Nutritional Formula 240 ml TIDWM PO 02/28/25 12:00 03/08/25 12:00 240 ML Lactulose 30 ml DAILYPRN PRN PO 03/01/25 10:00 03/04/25 17:47 30 ML Hydromorphone HCl 0.5 mg Q4HPRN PRN IV 03/03/25 11:45 03/08/25 08:44 0.5 MG Ceftazidime/ Dextrose 0.5 gm/ Sodium Chloride 50 ml @ 50 mls/hr DAILY IV 03/04/25 10:00 03/08/25 09:20 50 MLS/HR Nifedipine 60 mg BID PO 03/04/25 22:00 03/07/25 09:14 60 MG Hydralazine HCl 25 mg Q12HR PO 03/04/25 22:00 03/08/25 08:44 25 MG Furosemide 20 mg DAILY PO 03/06/25 10:00 03/07/25 09:14 20 MG Apixaban 2.5 mg BID PO 03/06/25 22:00 03/13/25 21:59 03/07/25 21:35 2.5 MG Laboratory Results Laboratory Tests 03/06/25 05:43 03/08/25 05:14 Chemistry Test 03/08/25 05:14 Albumin 3.9 g/dL (3.2-4.8) Calcium Level 9.3 mg/dL (8.7-10.4) Total Protein 7.4 g/dL (5.7-8.2) Coagulation Test 03/08/25 14:52 Prothrombin Time 11.6 sec (9.3-11.8) Prothrombin Time INR 1.11 (0.9-1.15) Activated Partial Thromboplast Time 32.1 SEC (24.5-34.5) LFT Test 03/08/25 05:14 Alanine Aminotransferase (ALT) < 9 U/L (7-40) Alkaline Phosphatase 73 U/L (46-116) Aspartate Amino Transferase (AST) 19 U/L (13-40) Total Bilirubin 0.4 mg/dL (0.2-1.0) Microbiology Microbiology Date/Time Source Procedure Growth Status 03/07/25 17:15 Pleural Fluid Gram Stain - Final Resulted 03/07/25 17:15 Pleural Fluid Body Fluid Culture - Preliminary Resulted 02/28/25 10:03 Sputum Gram Stain - Final Complete 02/28/25 10:03 Respiratory Culture - Final Enterobacter cloacae Complete 02/27/25 06:33 Nose MRSA Screen - Final Complete Assessment/Plan Assessment/Plan Impression: Acute on chronic hypoxic respiratory failure Elevated troponin Pulmonary edema Pulmonary vascular congestion End-stage renal disease on hemodialysis Can not rule out underlying pneumonia Hepatitis-C antibiotics positive Events: Remains on supplemental oxygen On 10 LPM simple mask Taper O2 as tolerated We have been unable to titrate despite hemodialysis and diuresis. Chest x-ray shows cardiomegaly and pulmonary vascular congestion. Diffuse interstitial prominence of the lungs. Small bilateral pleural effusions. No pneumothorax. Findings c/w CHF and volume overload. Chest x-ray continues to demonstrate pulmonary vascular congestion. Diffuse interstitial prominence. Small bilateral pleural effusions. No pneumothorax. Note, patient refused BiPAP - encouraged use. Patient underwent right thoracentesis yesterday with removal of 5 mL of sanguineous fluid. Please see separate procedure note for details. Follow up pleural fluid cultures. No growth thus far. Many red blood cells. No organisms. Few WBCs seen. Obtain chest x-ray in the morning for interval changes. Continue antibiotics Continue bronchodilators Incentive spirometry Blood pressure control. Accu-Cheks, ISS. Protonix for GI prophylaxis Monitor hemoglobin - currently 7.6 g/dL Transfuse if less than 7.0 g/dL. Hemodialysis per Nephrology - plan for HD today. Diurese with Lasix as tolerated. On p.o. Lasix. Monitor renal function. Monitor electrolytes. Supplement as necessary. Monitor ins and outs. CT angio on 03/05/25 demonstrates no evidence of pulmonary embolism. CHF/volume overload, with interstitial pulmonary edema, small bilateral pleural effusions, chest wall edema, and mild cardiomegaly. [id number] 3-vessel calcified coronary artery disease and mild aortic valve calcification. Bilateral hilar, mediastinal, and supraclavicular lymphadenopathy, nonspecific though could be reactive or passive congestion. Overall poor prognosis. Consider long-term acute care facility for ongoing weaning from supplemental oxygen. Labs and imaging reviewed. Rest of plan as noted below. Plan: Supplemental oxygen Titrate to keep O2 saturation above 92%. Encourage use of BiPAP Complete antibiotic course. Prior sputum cultures grew moderate yeast, few GPC and few gram positive rods. MRSA negative Bronchodilators PRN. Monitor renal function Hemodialysis per nephrology Monitor electrolytes Supplement as necessary. Monitor ins and outs Monitor hemoglobin Transfuse if less than 7.0 g/dL. Arrange for stationary concentrator at home that goes up to 10 L/min Social work Services consultation placed GI prophylaxis-Protonix Prognosis: Poor given multiple comorbidities. Rest of plan per hospitalist and other consultants. Thank you Dr. Stinson for allowing me to participate in this patient's care. Further recommendations will depend on patient's clinical course. Please do not hesitate to contact me if you have any questions or concerns. This medical document was created using an electronic medical record system with [employer] system. Although this document has been carefully reviewed, there may still be some phonetic and typographical errors. These areas are purely typographical due to imperfections of the software programs, and do not reflect any compromise in the patient's medical care. Plan discussed with: Patient, Spouse (HCP) My Orders Orders - JUAN SALDAÑA MD Procedure Category Date Status Time Body Fluid Culture W/ YARELI 03/07/25 In Process GS 17:16 Visit Coding Pulmonary Billing Provider: JUAN SALDAÑA MD Date of Service if different f: Mar 08, 2025 Common Visit Codes: [id number] INP/OBS CARE(HIGH) JUAN SALDAÑA MD Mar 08, 2025 16:06
--- NOTE | 2025-03-08 19:15 | DVHPN2 ---
Progress Note - Dictate Date Seen: Mar 08, 2025 Has the PT tested + for MRSA If YES, has PT been informed?: No Medical Necessity Reason Pt with a Central, PICC or Fol: No Subjective Patient was seen and evaluated in follow up. Chart/events reviewed. No complaints. Patient remains on 10L via simple mask, O2 unable to be tapered down. Patient underwent right thoracentesis yesterday with removal of 5 mL of sanguineous fluid. Hemodialysis in progress. vital signs Vital Sign Date Time Temp Pulse Resp B/P (MAP) Pulse Ox O2 Delivery O2 Flow Rate FiO2 03/08/25 18:50 94 Simple Mask* 8 60 03/08/25 18:37 84 18 161/55 03/08/25 16:50 97.9 97.9 Total Intake and Output 03/07/25 03/07/25 03/08/25 15:00 23:00 07:00 Intake Total 100 ml 560 ml 0 ml Balance 100 ml 560 ml 0 ml medications Current Medications Medications Dose Ordered Sig/Nereyda Route Start Time Stop Time Status Last Admin Dose Admin Sodium Chloride 10 ml Q8HR IV 02/26/25 22:00 03/08/25 13:41 10 ML Ondansetron HCl 4 mg Q4HP PRN IV 02/26/25 15:30 03/03/25 18:25 4 MG Docusate Sodium 100 mg BIDPRN PRN PO 02/26/25 15:30 02/27/25 17:40 100 MG Acetaminophen 650 mg Q6HP PRN PO 02/26/25 15:30 03/03/25 10:11 650 MG Morphine Sulfate 2 mg Q4HPRN PRN IV 02/26/25 15:30 Hold Nitroglycerin 0.4 mg Q5MINP PRN SL 02/26/25 15:30 03/03/25 10:31 0.4 MG Bupropion HCl 150 mg DAILY PO 02/27/25 10:00 03/08/25 10:34 150 MG Clonidine HCl 0.1 mg Q8HPRN PRN PO 02/26/25 15:30 03/04/25 00:45 0.1 MG Duloxetine HCl 30 mg DAILY PO 02/27/25 10:00 03/08/25 10:34 30 MG Meclizine HCl 25 mg BIDP PRN PO 02/26/25 15:02/27/25 17:36 25 MG Minoxidil 2.5 mg BID PO 02/26/25 22:00 03/07/25 21:36 2.5 MG Pantoprazole Sodium 40 mg DAILY PO 02/27/25 10:00 03/08/25 10:35 40 MG Trazodone HCl 50 mg HS PO 02/26/25 22:00 03/07/25 21:35 50 MG Atorvastatin Calcium 80 mg HS PO 02/26/25 22:00 03/07/25 21:36 80 MG Patient Own Medication 1 tab BID PO 02/26/25 22:00 Hold Donepezil HCl 5 mg DAILY PO 02/27/25 10:00 03/08/25 10:34 5 MG Ipratropium [place] 0.5 mg Q4HPRN PRN NEB 02/26/25 16:15 03/07/25 09:25 0.5 MG Albuterol 2.5 mg Q4HPRN PRN NEB 02/26/25 16:15 03/07/25 09:25 2.5 MG Diagnostic Test (Pha) 1 strip ACHS 02/26/25 22:00 03/08/25 17:00 1 STRIP Insulin Human Regular HS SC 02/26/25 22:00 03/06/25 21:38 2 UNITS Insulin Human Regular AC SC 02/27/25 07:00 03/07/25 18:34 2 UNITS Dextrose 50 ml UD PRN IV 02/26/25 17:15 Doxycycline Hyclate 100 ml @ 50 mls/hr Q12H IV 02/28/25 11:00 03/08/25 10:34 50 MLS/HR Enteral Nutritional Formula 240 ml TIDWM PO 02/28/25 12:00 03/08/25 18:00 240 ML Lactulose 30 ml DAILYPRN PRN PO 03/01/25 10:00 03/04/25 17:47 30 ML Hydromorphone HCl 0.5 mg Q4HPRN PRN IV 03/03/25 11:45 03/08/25 18:37 0.5 MG Ceftazidime/ Dextrose 0.5 gm/ Sodium Chloride 50 ml @ 50 mls/hr DAILY IV 03/04/25 10:00 03/08/25 09:20 50 MLS/HR Nifedipine 60 mg BID PO 03/04/25 22:00 03/07/25 09:14 60 MG Hydralazine HCl 25 mg Q12HR PO 03/04/25 22:00 03/08/25 08:44 25 MG Furosemide 20 mg DAILY PO 03/06/25 10:00 03/07/25 09:14 20 MG Apixaban 2.5 mg BID PO 03/06/25 22:00 03/13/25 21:59 03/07/25 21:35 2.5 MG objective Vitals and nursing notes reviewed. General Appearance: In no acute distress. HEENT: Atraumatic, PERRLA, Mucous membr. moist/pink Respiratory: Diminished breath sounds present. No wheezing. Cardiovascular: Regular rate, Normal S1, Normal S2 Abdominal: Normal bowel sounds, Soft, No tenderness Extremities: No clubbing, No cyanosis, No edema, Normal pulses, Other (right arm fistula) Skin: No rashes, No breakdown, No significant lesion Neuro: Alert, Oriented X3, Normal speech Psych/Mental Status: Mental status NL, Mood NL laboratory and microbiology Laboratory Tests 03/08/25 05:14 03/06/25 05:43 Test 03/08/25 05:14 Range/Units Serum Glucose 79 74-106 mg/dL Problem List Acute hypoxic respiratory failure Chest pain Elevated troponin ESRD on HD Assessment/Plan Agree with current supportive medical care. Cardiology and Pulmonary Medicine following. S/p thoracentesis 03/07. Supplemental oxygen to keep sats >92%. MedNeb breathing treatments. HD- 03/08- UF 2-3L as tolerated. Continue Lasix 20 mg PO daily. IV antibiotics. Renal diet. Continued on Eliquis. Additional plan as per the hospital course. Dietary Evaluation Review Comments: Encourage and monitor PO intake to meet his needs Reinforce dietary sodium restrition Monitor cholesterol levels Expected Outcomes/Goals: No wt loss, fluid/electolyte in balance Plan discussed with: Patient, Other (RN) HARJINDER RUTHERFORD DO Mar 08, 2025 19:15
[2025-03-09] VITALS (11 sets, daily range): BP systolic 127–167; BP diastolic 69–91; PULSE 71–84; RESP 14–18; TEMP 97.4–98.3; O2SAT 92–100
[2025-03-09] MEDS: DEXTROSE (50%) 50ML SYRG IV PRN (01:33)
--- NOTE | 2025-03-09 05:40 | DVH ---
CHEST RADIOGRAPH Indication: interval changes. remains on high o2 requirements. Technique: Single frontal view of the chest was obtained Comparison: XY CHEST XRAY 1 VIEW on DOS: 03/06/25 FINDINGS: Lines and Tubes: None Lungs: Bilateral alveolar and interstitial opacities are similar to prior study. Pleura: No effusion. No pneumothorax. Cardiomediastinal contours: Stable cardiomegaly. Bones: No acute osseous abnormality. IMPRESSION: 1. No significant change in bilateral alveolar and interstitial opacities. 2. Cardiomegaly, stable.
[2025-03-09 09:42] LABS: Hematocrit 21.8 % (41.0-53.0); Hemoglobin 7.1 g/dL (13.5-17.5); Mean Corpuscular Hemoglobin 31.5 pg (28.0-32.0); Mean Corpuscular Volume 96.3 fL (80.0-100.0); Nucleated Red Blood Cells % 0.0 %
[2025-03-09 10:01] LABS: Albumin 3.7 g/dL (3.2-4.8); Alkaline Phosphatase 67 U/L (46-116); Anion Gap 9 (5-15); BUN/Creatinine Ratio 5.8 (10.0-20.0); Bilirubin, Total 0.3 mg/dL (0.2-1.0); Calcium 8.9 mg/dL (8.7-10.4); Chloride 100 mmol/L (98-107); Glucose 87 mg/dL (74-106); Potassium 5.0 mmol/L (3.5-5.1); Sodium 143 mmol/L (136-145); Total Protein 7.2 g/dL (5.7-8.2)
[2025-03-09 10:16] LABS: Alanine Aminotransferase < 9 U/L (7-40); Blood Urea Nitrogen 25 mg/dL (9-23); Carbon Dioxide 34 mmol/L (20-31)
--- NOTE | 2025-03-09 11:09 | DVHPN2 ---
Subjective DOS: 03/09/2025 Patient seen and examined at bedside. Remains on supplemental oxygen Overnight events reviewed. O2 requirements slightly improved. Reviewed: Care Plan, H&P, Labs, Medications, Previous Orders, Radiology Changes from previous H/P or p: No Changes Eyes: No Pain, No Vision change, No Conjunctivae inflammation, No Eyelid inflammation, No Other, No Redness ENT: No Ear pain, No Ear discharge, No Nose pain, No Nose discharge, No Nose congestion, No Mouth pain, No Mouth swelling, No Throat pain, No Throat swelling, No Other Cardiovascular: Chest Pain; No Palpitations, No Orthopnea, No Paroxysmal Noc. Dyspnea, No Edema, No Lt Headedness, No Other Respiratory: No Cough, No Dry; Shortness of breath, SOB with excertion; No Wheezing, No Hemoptysis, No Pleuritic Pain, No Sputum, No Other Gastrointestinal: No Nausea, No Vomiting, No Abdominal Pain, No Diarrhea, No Constipation, No Melena, No Hematochezia, No Other Genitourinary: No Dysuria, No Frequency, No Incontinence, No Hematuria, No Retention, No Other Musculoskeletal: No other, No neck pain, No shoulder pain, No arm pain, No back pain, No hand pain, No leg pain, No foot pain Skin: No Rash, No Lesions, No Jaundice, No Bruising, No Other Objective Vitals Vital Signs Date Time Temp Pulse Resp B/P (MAP) Pulse Ox O2 Delivery O2 Flow Rate FiO2 03/09/25 10:52 75 16 156/68 03/09/25 08:30 97.4 100 97.4 03/08/25 20:00 Simple Mask* 8 60 Intake/Output Intake and Output 03/09/25 07:00 Intake Total 720 ml Balance 720 ml Intake Oral 470 ml IV Total 250 ml # Voids 3 Exam Gen.: Patient lying in bed in no apparent distress. On supplemental oxygen. Head: Normocephalic, atraumatic. Eyes: EOMI/PERRLA. Ears: Normal hearing. Normal anatomy. Neck/trachea: Trachea midline, supple. Nose: Normal external anatomy. Mouth: Moist mucous membranes. Chest: Decreased air entry bilaterally. No wheezing or rhonchi. Cardiovascular: Positive S1, positive S2. Regular rate and rhythm. Abdomen: Positive bowel sounds in all 4 quadrants. Soft, non-tender, non- distended. : Deferred. Rectal: Deferred. Skin: Warm, dry. Intact. Extremities: 2+ radial pulses bilaterally. No lower extremity edema. Neuro: Awake, alert, oriented x3. No gross motor or sensory deficits. Cranial nerves II through XII intact. Gait not assessed. General Appearance: Alert, Oriented X3 HEENT: Atraumatic, PERRLA, EOMI, Mucous membr. moist/pink Lungs: Clear to auscultation, Normal air movement Cardiovascular: Regular rate, Normal S1, Normal S2, No murmurs, Gallops, Rubs Abdomen: Normal bowel sounds, Soft, No tenderness Extremities: No edema Neuro: Cranial nerves 3-12 NL Psych/Mental Status: Mental status NL Medications Current Medications Medications Dose Ordered Sig/Nereyda Route Start Time Stop Time Status Last Admin Dose Admin Sodium Chloride 10 ml Q8HR IV 02/26/25 22:00 03/09/25 07:14 10 ML Ondansetron HCl 4 mg Q4HP PRN IV 02/26/25 15:30 03/03/25 18:25 4 MG Docusate Sodium 100 mg BIDPRN PRN PO 02/26/25 15:30 02/27/25 17:40 100 MG Acetaminophen 650 mg Q6HP PRN PO 02/26/25 15:30 03/03/25 10:11 650 MG Morphine Sulfate 2 mg Q4HPRN PRN IV 02/26/25 15:30 Hold Nitroglycerin 0.4 mg Q5MINP PRN SL 02/26/25 15:30 03/03/25 10:31 0.4 MG Bupropion HCl 150 mg DAILY PO 02/27/25 10:00 03/09/25 09:37 150 MG Clonidine HCl 0.1 mg Q8HPRN PRN PO 02/26/25 15:30 03/09/25 01:50 0.1 MG Duloxetine HCl 30 mg DAILY PO 02/27/25 10:00 03/09/25 09:36 30 MG Meclizine HCl 25 mg BIDP PRN PO 02/26/25 15:30 02/27/25 17:36 25 MG Minoxidil 2.5 mg BID PO 02/26/25 22:00 03/08/25 22:56 2.5 MG Pantoprazole Sodium 40 mg DAILY PO 02/27/25 10:00 03/09/25 09:37 40 MG Trazodone HCl 50 mg HS PO 02/26/25 22:00 03/08/25 22:57 50 MG Atorvastatin Calcium 80 mg HS PO 02/26/25 22:00 03/08/25 22:51 80 MG Patient Own Medication 1 tab BID PO 02/26/25 22:00 Hold Donepezil HCl 5 mg DAILY PO 02/27/25 10:00 03/09/25 09:37 5 MG Ipratropium [place] 0.5 mg Q4HPRN PRN NEB 02/26/25 16:15 03/07/25 09:25 0.5 MG Albuterol 2.5 mg Q4HPRN PRN NEB 02/26/25 16:15 03/07/25 09:25 2.5 MG Diagnostic Test (Pha) 1 strip ACHS 02/26/25 22:00 03/09/25 07:15 1 STRIP Insulin Human Regular HS SC 02/26/25 22:00 03/08/25 23:10 2 UNITS Insulin Human Regular AC SC 02/27/25 07:00 03/07/25 18:34 2 UNITS Dextrose 50 ml UD PRN IV 02/26/25 17:15 03/09/25 01:33 50 ML Doxycycline Hyclate 100 ml @ 50 mls/hr Q12H IV 02/28/25 11:00 03/08/25 22:51 50 MLS/HR Enteral Nutritional Formula 240 ml TIDWM PO 02/28/25 12:00 03/09/25 08:00 240 ML Lactulose 30 ml DAILYPRN PRN PO 03/01/25 10:00 03/04/25 17:47 30 ML Hydromorphone HCl 0.5 mg Q4HPRN PRN IV 03/03/25 11:45 03/09/25 10:52 0.5 MG Ceftazidime/ Dextrose 0.5 gm/ Sodium Chloride 50 ml @ 50 mls/hr DAILY IV 03/04/25 10:00 03/09/25 09:38 50 MLS/HR Nifedipine 60 mg BID PO 03/04/25 22:00 03/08/25 22:55 60 MG Hydralazine HCl 25 mg Q12HR PO 03/04/25 22:00 03/08/25 22:56 25 MG Furosemide 20 mg DAILY PO 03/06/25 10:00 03/09/25 09:37 20 MG Apixaban 2.5 mg BID PO 03/06/25 22:00 03/13/25 21:59 03/08/25 22:57 2.5 MG Laboratory Results Laboratory Tests 03/09/25 08:59 Chemistry Test 03/09/25 08:59 Albumin 3.7 g/dL (3.2-4.8) Calcium Level 8.9 mg/dL (8.7-10.4) Total Protein 7.2 g/dL (5.7-8.2) Coagulation Test 03/08/25 14:52 Prothrombin Time 11.6 sec (9.3-11.8) Prothrombin Time INR 1.11 (0.9-1.15) Activated Partial Thromboplast Time 32.1 SEC (24.5-34.5) LFT Test 03/09/25 08:59 Alanine Aminotransferase (ALT) < 9 U/L (7-40) Alkaline Phosphatase 67 U/L (46-116) Aspartate Amino Transferase (AST) 22 U/L (13-40) Total Bilirubin 0.3 mg/dL (0.2-1.0) Microbiology Microbiology Date/Time Source Procedure Growth Status 03/07/25 17:15 Pleural Fluid Gram Stain - Final Resulted 03/07/25 17:15 Pleural Fluid Body Fluid Culture - Preliminary Resulted 02/28/25 10:03 Sputum Gram Stain - Final Complete 02/28/25 10:03 Respiratory Culture - Final Enterobacter cloacae Complete 02/27/25 06:33 Nose MRSA Screen - Final Complete Assessment/Plan Assessment/Plan Impression: Acute on chronic hypoxic respiratory failure Elevated troponin Pulmonary edema Pulmonary vascular congestion End-stage renal disease on hemodialysis Cannot rule out underlying pneumonia Hepatitis-C antibody positive Events: Remains on supplemental oxygen On 10 LPM -->8 LPM simple mask Taper O2 as tolerated We have been unable to titrate despite hemodialysis and diuresis. Chest x-ray today shows no significant change in bilateral alveolar and interstitial opacities. Cardiomegaly, stable. . Encouraged use of BiPAP. Patient underwent right thoracentesis on 03/07/25 with removal of 5 mL of sanguineous fluid. Please see separate procedure note for details. Follow up pleural fluid cultures. No growth thus far. Many red blood cells. No organisms. Few WBCs seen. Continue antibiotics for pneumonia Continue bronchodilators Incentive spirometry Blood pressure control. Accu-Cheks, ISS PRN. Protonix for GI prophylaxis Monitor hemoglobin - currently 7.1 g/dL Transfuse if less than 7.0 g/dL. Hemodialysis per Nephrology - s/p HD yesterday. Diurese with Lasix as tolerated. On p.o. Lasix. Monitor renal function. Monitor electrolytes. Supplement as necessary. Monitor ins and outs. CT angio on 03/05/25 demonstrates no evidence of pulmonary embolism. CHF/volume overload, with interstitial pulmonary edema, small bilateral pleural effusions, chest wall edema, and mild cardiomegaly. [id number] 3-vessel calcified coronary artery disease and mild aortic valve calcification. Bilateral hilar, mediastinal, and supraclavicular lymphadenopathy, nonspecific though could be reactive or passive congestion. Note, patient with overall poor prognosis. Consider long-term acute care facility for ongoing weaning from supplemental oxygen. Labs and imaging reviewed. Rest of plan as noted below. Plan: Supplemental oxygen Titrate to keep O2 saturation above 92%. Encourage use of BiPAP Complete antibiotic course. Prior sputum cultures grew moderate yeast, few GPC and few gram positive rods. MRSA negative Continue bronchodilators Monitor renal function Hemodialysis per nephrology Monitor electrolytes Supplement as necessary. Monitor ins and outs Monitor hemoglobin Transfuse if less than 7.0 g/dL. Arrange for stationary concentrator at home that goes up to 10 L/min Social work Services consultation placed GI prophylaxis-Protonix Prognosis: Poor given multiple comorbidities. Rest of plan per hospitalist and other consultants. Thank you Dr. Stinson for allowing me to participate in this patient's care. Further recommendations will depend on patient's clinical course. Please do not hesitate to contact me if you have any questions or concerns. This medical document was created using an electronic medical record system with [employer] dictation system. Although this document has been carefully reviewed, there may still be some phonetic and typographical errors. These areas are purely typographical due to imperfections of the software programs, and do not reflect any compromise in the patient's medical care. Plan discussed with: Patient, Other (HANS Choe) My Orders Orders - JUAN SALDAÑA MD Procedure Category Date Status Time Chest Xray 1 View XY 03/09/25 Resulted 04:00 Visit Coding Pulmonary Billing Provider: JUAN SALDAÑA MD Date of Service if different f: Mar 09, 2025 Common Visit Codes: [id number] INP/OBS CARE(HIGH) JUAN SALDAÑA MD Mar 09, 2025 11:08
--- NOTE | 2025-03-09 12:29 | DVHPN2 ---
Subjective The patient is seen and examined at bedside. Complains of shortness of breath but feel better today. HD today Reviewed: Care Plan, H&P, Labs, Medications, Previous Orders, Radiology Changes from previous H/P or p: No Changes Eyes: No Pain, No Vision change, No Conjunctivae inflammation, No Eyelid inflammation, No Other, No Redness ENT: No Ear pain, No Ear discharge, No Nose pain, No Nose discharge, No Nose congestion, No Mouth pain, No Mouth swelling, No Throat pain, No Throat swelling, No Other Cardiovascular: Chest Pain; No Palpitations, No Orthopnea, No Paroxysmal Noc. Dyspnea, No Edema, No Lt Headedness, No Other Respiratory: No Cough, No Dry; Shortness of breath, SOB with excertion; No Wheezing, No Hemoptysis, No Pleuritic Pain, No Sputum, No Other Gastrointestinal: No Nausea, No Vomiting, No Abdominal Pain, No Diarrhea, No Constipation, No Melena, No Hematochezia, No Other Genitourinary: No Dysuria, No Frequency, No Incontinence, No Hematuria, No Retention, No Other Musculoskeletal: No other, No neck pain, No shoulder pain, No arm pain, No back pain, No hand pain, No leg pain, No foot pain Skin: No Rash, No Lesions, No Jaundice, No Bruising, No Other Objective Vitals Vital Signs Date Time Temp Pulse Resp B/P (MAP) Pulse Ox O2 Delivery O2 Flow Rate FiO2 03/09/25 10:52 75 16 156/68 03/09/25 08:30 97.4 100 97.4 03/08/25 20:00 Simple Mask* 8 60 Intake/Output Intake and Output 03/09/25 07:00 Intake Total 720 ml Balance 720 ml Intake Oral 470 ml IV Total 250 ml # Voids 3 General Appearance: Alert, Oriented X3 HEENT: Atraumatic, PERRLA, EOMI, Mucous membr. moist/pink Lungs: Clear to auscultation, Normal air movement Cardiovascular: Regular rate, Normal S1, Normal S2, No murmurs, Gallops, Rubs Abdomen: Normal bowel sounds, Soft, No tenderness Extremities: No edema Neuro: Cranial nerves 3-12 NL Psych/Mental Status: Mental status NL Medications Current Medications Medications Dose Ordered Sig/Nereyda Route Start Time Stop Time Status Last Admin Dose Admin Sodium Chloride 10 ml Q8HR IV 02/26/25 22:00 03/09/25 07:14 10 ML Ondansetron HCl 4 mg Q4HP PRN IV 02/26/25 15:30 03/03/25 18:25 4 MG Docusate Sodium 100 mg BIDPRN PRN PO 02/26/25 15:30 02/27/25 17:40 100 MG Acetaminophen 650 mg Q6HP PRN PO 02/26/25 15:30 03/03/25 10:11 650 MG Morphine Sulfate 2 mg Q4HPRN PRN IV 02/26/25 15:30 Hold Nitroglycerin 0.4 mg Q5MINP PRN SL 02/26/25 15:30 03/03/25 10:31 0.4 MG Bupropion HCl 150 mg DAILY PO 02/27/25 10:00 03/09/25 09:37 150 MG Clonidine HCl 0.1 mg Q8HPRN PRN PO 02/26/25 15:30 03/09/25 01:50 0.1 MG Duloxetine HCl 30 mg DAILY PO 02/27/25 10:00 03/09/25 09:36 30 MG Meclizine HCl 25 mg BIDP PRN PO 02/26/25 15:30 02/27/25 17:36 25 MG Minoxidil 2.5 mg BID PO 02/26/25 22:00 03/08/25 22:56 2.5 MG Pantoprazole Sodium 40 mg DAILY PO 02/27/25 10:00 03/09/25 09:37 40 MG Trazodone HCl 50 mg HS PO 02/26/25 22:00 03/08/25 22:57 50 MG Atorvastatin Calcium 80 mg HS PO 02/26/25 22:00 03/08/25 22:51 80 MG Patient Own Medication 1 tab BID PO 02/26/25 22:00 Hold Donepezil HCl 5 mg DAILY PO 02/27/25 10:00 03/09/25 09:37 5 MG Ipratropium [place] 0.5 mg Q4HPRN PRN NEB 02/26/25 16:15 03/07/25 09:25 0.5 MG Albuterol 2.5 mg Q4HPRN PRN NEB 02/26/25 16:15 03/07/25 09:25 2.5 MG Diagnostic Test (Pha) 1 strip ACHS 02/26/25 22:00 03/09/25 11:43 1 STRIP Insulin Human Regular HS SC 02/26/25 22:00 03/08/25 23:10 2 UNITS Insulin Human Regular AC SC 02/27/25 07:00 03/07/25 18:34 2 UNITS Dextrose 50 ml UD PRN IV 02/26/25 17:15 03/09/25 01:33 50 ML Doxycycline Hyclate 100 ml @ 50 mls/hr Q12H IV 02/28/25 11:00 03/08/25 22:51 50 MLS/HR Enteral Nutritional Formula 240 ml TIDWM PO 02/28/25 12:00 03/09/25 08:00 240 ML Lactulose 30 ml DAILYPRN PRN PO 03/01/25 10:00 03/04/25 17:47 30 ML Hydromorphone HCl 0.5 mg Q4HPRN PRN IV 03/03/25 11:45 03/09/25 10:52 0.5 MG Ceftazidime/ Dextrose 0.5 gm/ Sodium Chloride 50 ml @ 50 mls/hr DAILY IV 03/04/25 10:00 03/09/25 09:38 50 MLS/HR Nifedipine 60 mg BID PO 03/04/25 22:00 03/08/25 22:55 60 MG Hydralazine HCl 25 mg Q12HR PO 03/04/25 22:00 03/08/25 22:56 25 MG Furosemide 20 mg DAILY PO 03/06/25 10:00 03/09/25 09:37 20 MG Apixaban 2.5 mg BID PO 03/06/25 22:00 03/13/25 21:59 03/08/25 22:57 2.5 MG Laboratory Results Laboratory Tests 03/09/25 08:59 Chemistry Test 03/09/25 08:59 Albumin 3.7 g/dL (3.2-4.8) Calcium Level 8.9 mg/dL (8.7-10.4) Total Protein 7.2 g/dL (5.7-8.2) Coagulation Test 03/08/25 14:52 Prothrombin Time 11.6 sec (9.3-11.8) Prothrombin Time INR 1.11 (0.9-1.15) Activated Partial Thromboplast Time 32.1 SEC (24.5-34.5) LFT Test 03/09/25 08:59 Alanine Aminotransferase (ALT) < 9 U/L (7-40) Alkaline Phosphatase 67 U/L (46-116) Aspartate Amino Transferase (AST) 22 U/L (13-40) Total Bilirubin 0.3 mg/dL (0.2-1.0) Microbiology Microbiology Date/Time Source Procedure Growth Status 03/07/25 17:15 Pleural Fluid Gram Stain - Final Resulted 03/07/25 17:15 Pleural Fluid Body Fluid Culture - Preliminary Resulted 02/28/25 10:03 Sputum Gram Stain - Final Complete 02/28/25 10:03 Respiratory Culture - Final Enterobacter cloacae Complete 02/27/25 06:33 Nose MRSA Screen - Final Complete Labs and/or images reviewed: Labs reviewed by me Assessment/Plan Assessment/Plan Acute hypoxic respiratory failure, resolved Chronic respiratory failure on home O2 ESRD COPD DM2 HTN Mixed hyperlipidemia Elevated troponin probable 2nd to NSTEMI type 2 DVT of right upper extremities Superficial thrombus of left upper extremities. Pancreatic cystic mass. Anemia PLAN: Continue current management. Continue with Oxygen Continue HD per schedule Continue IV antibiotic. Waiting for supervisor partial denture department Waiting for sputum culture. Stat trop is elevated. Will check trop q6h x 3 Stat EKG Appreciate Dementia Program Director in put No further cardiac work up CTA of chest show no PE US show DVT of right UE with attach to lymph node. Start on eliquis yesterday. Stop heparin drip. Will monitor. concern because of history of GI bleed 1 year ago. Explains to her that he need to prevent more clot in his arm. but I can stop the eliquis if he wish. He need to understand the risk of DVT and possible PE if not on anticoagulation. The patient state that he want to be on anticoagulation, eliquis for now. Hb stable at 7.5 today. No melena, no BRBPR DW patient and regarding to the lymph node and cystic mass. They [facility] for further work up on the mass in March 2025. This medical document was created using an electronic medical record system with [employer] direct computerized dictation system. Although this document has been carefully reviewed, there may still be some phonetic and typographical errors. These areas are purely typographical due to imperfections of the software programs, and do not reflect any compromise in the patient's medical care. Plan discussed with: Patient Date of Service: Mar 09, 2025 Billing Provider: GERMAINE ULLOA MD Common Visit Codes: 32458-[id number] INP/OBS CARE(HIGH) GERMAINE ULLOA MD Mar 09, 2025 12:29
--- NOTE | 2025-03-09 16:29 | DVHPN2 ---
Progress Note - Dictate Date Seen: Mar 09, 2025 Has the PT tested + for MRSA If YES, has PT been informed?: No Medical Necessity Reason Pt with a Central, PICC or Fol: No vital signs Vital Sign Date Time Temp Pulse Resp B/P (MAP) Pulse Ox O2 Delivery O2 Flow Rate FiO2 03/09/25 13:00 97.9 71 17 148/70 (96) 98 97.9 03/09/25 10:26 Simple Mask* 8 60 Total Intake and Output 03/08/25 03/08/25 03/09/25 15:00 23:00 07:00 Intake Total 150 ml 370 ml 200 ml Balance 150 ml 370 ml 200 ml medications Current Medications Medications Dose Ordered Sig/Nereyda Route Start Time Stop Time Status Last Admin Dose Admin Sodium Chloride 10 ml Q8HR IV 02/26/25 22:00 03/09/25 14:39 10 ML Ondansetron HCl 4 mg Q4HP PRN IV 02/26/25 15:30 03/03/25 18:25 4 MG Docusate Sodium 100 mg BIDPRN PRN PO 02/26/25 15:30 02/27/25 17:40 100 MG Acetaminophen 650 mg Q6HP PRN PO 02/26/25 15:30 03/03/25 10:11 650 MG Morphine Sulfate 2 mg Q4HPRN PRN IV 02/26/25 15:30 Hold Nitroglycerin 0.4 mg Q5MINP PRN SL 02/26/25 15:30 03/03/25 10:31 0.4 MG Bupropion HCl 150 mg DAILY PO 02/27/25 10:00 03/09/25 09:37 150 MG Clonidine HCl 0.1 mg Q8HPRN PRN PO 02/26/25 15:30 03/09/25 01:50 0.1 MG Duloxetine HCl 30 mg DAILY PO 02/27/25 10:00 03/09/25 09:36 30 MG Meclizine HCl 25 mg BIDP PRN PO 02/26/25 15:30 02/27/25 17:36 25 MG Minoxidil 2.5 mg BID PO 02/26/25 22:00 03/08/25 22:56 2.5 MG Pantoprazole Sodium 40 mg DAILY PO 02/27/25 10:00 03/09/25 09:37 40 MG Trazodone HCl 50 mg HS PO 02/26/25 22:00 03/08/25 22:57 50 MG Atorvastatin Calcium 80 mg HS PO 02/26/25 22:00 03/08/25 22:51 80 MG Patient Own Medication 1 tab BID PO 02/26/25 22:00 Hold Donepezil HCl 5 mg DAILY PO 02/27/25 10:00 03/09/25 09:37 5 MG Ipratropium [place] 0.5 mg Q4HPRN PRN NEB 02/26/25 16:15 03/07/25 09:25 0.5 MG Albuterol 2.5 mg Q4HPRN PRN NEB 02/26/25 16:15 03/07/25 09:25 2.5 MG Diagnostic Test (Pha) 1 strip ACHS 02/26/25 22:00 03/09/25 11:43 1 STRIP Insulin Human Regular HS SC 02/26/25 22:00 03/08/25 23:10 2 UNITS Insulin Human Regular AC SC 02/27/25 07:00 03/07/25 18:34 2 UNITS Dextrose 50 ml UD PRN IV 02/26/25 17:15 03/09/25 01:33 50 ML Doxycycline Hyclate 100 ml @ 50 mls/hr Q12H IV 02/28/25 11:00 03/09/25 14:39 50 MLS/HR Enteral Nutritional Formula 240 ml TIDWM PO 02/28/25 12:00 03/09/25 14:39 240 ML Lactulose 30 ml DAILYPRN PRN PO 03/01/25 10:00 03/09/25 14:37 30 ML Hydromorphone HCl 0.5 mg Q4HPRN PRN IV 03/03/25 11:45 03/09/25 10:52 0.5 MG Ceftazidime/ Dextrose 0.5 gm/ Sodium Chloride 50 ml @ 50 mls/hr DAILY IV 03/04/25 10:00 03/09/25 09:38 50 MLS/HR Nifedipine 60 mg BID PO 03/04/25 22:00 03/08/25 22:55 60 MG Hydralazine HCl 25 mg Q12HR PO 03/04/25 22:00 03/08/25 22:56 25 MG Furosemide 20 mg DAILY PO 03/06/25 10:00 03/09/25 09:37 20 MG Apixaban 2.5 mg BID PO 03/06/25 22:00 03/13/25 21:59 03/08/25 22:57 2.5 MG laboratory and microbiology Laboratory Tests 03/09/25 08:59 Test 03/09/25 08:59 Range/Units Serum Glucose 87 74-106 mg/dL Assessment/Plan Assessment/Plan This is an 79-year old male known outside to our practice who initially presented 02/26/2025 with reported shortness of breath and chest discomfort. Patient himself does have underlying history of chronic respiratory failure on home oxygen therapy and reports indicate on the day of initial presentation, patient had went for routine testing outside within our practice and had been reported to have oxygen saturations within the 50% range despite use of his portable oxygen concentrator which EMS had been called and patient was later transported to present facility for further evaluation and management. Throughout course of present admission patient had been admitted with acute on chronic hypoxic respiratory failure which patient does have known history of COPD and has been managed by pulmonology services throughout present hospital course. Chest imaging had revealed evidence for pulmonary vascular congestion which patient does have underlying history of chronic diastolic heart failure with last known LVEF of 60% as per Echocardiogram findings 11/28/2024. Right ventricular systolic pressure at that time was noted to be 55mmHg consistent with underlying pulmonary hypertension which it is further noted patient himself does have history of ESRD on hemodialysis for which fluid volume is managed by Nephrology services via hemodialysis. Patient does have underlying anemia. Serial high sensitive troponins have revealed flat/mild elevation with a peak level of 112 that had subsequently revealed gradual downtrend. 12-lead electrocardiogram had revealed sinus rhythm, first degree AVB, right bundle branch block, prolonged QTC, however with no evidence for acute ischemic changes. Of note, patient does have underlying history of coronary artery disease and is status post previous PCI with PERLA x 1 involving ostial LAD 08/04/2023. Cardiac catheterization at that time had revealed presence of a patent stent involving mLAD as well as type II pulmonary hypertension. Patient does have known history of previously provoked DVT involving subclavian/neck and had been on low-dose Xarelto as outpatient however upon review of outside records, AC therapy had recently been discontinued and patient has been kept on low-dose Aspirin given previous PCI. Of note, throughout course of present admission, it is notable that patient has been observed to have transient hypertensive events consistent with hypertensive urgency which could have attributed to patients intermittent chest pains. Despite the above, at present time of consultation, patient himself reports chest pain has now subsided. Denies any palpitations, dizziness, syncope, or any further cardiac related symptoms. Cardiology services were involved late within the admission (on ) by primary team request for cardiac aspects of care. Past medical history includes end-stage renal disease on hemodialysis, old history of CVA (2018), poor functional capacity, coronary artery disease and status post PCI (last stent in July 2023, ostial LAD), COPD, obstructive sleep apnea, diabetes mellitus, hypertension, anemia (history of repeated transfusions), D-CHF, SVT, pulmonary hypertension (considered type 2), history of pancytopenia (resolved later), history of DVT in upper extremity, dementia, old history of underlying RBBB, peripheral artery disease, right external iliac artery aneurysm, history of CDT colitis, repeated/significant GI bleedings, 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 Past medical history also includes DVT in the right upper extremity, history of septic shock, history of pneumonia, sick sinus syndrome and status post pacemaker (Micra/Medtronic) implantation. Echocardiogram of November 28, 2024 revealed Left ventricle: Mild concentric left ventricular hypertrophy was seen. LVEF was around 60%. There was no gross wall motion abnormality. Pseudo normal LV diastolic dysfunction was observed. Right ventricle: Right ventricle was dilated with preserved systolic function. Both atria were dilated. Aortic valve: Aortic sclerosis with no stenosis was observed. Mild aortic insufficiencywas seen. There was mild mitral regurgitation. There was [id number] tricuspid regurgitation. Pulmonary valve was not well visualized. Right ventricular systolic pressure was assessed at 55 mm Hg. There was no pericardial effusion. Echocardiogram of 2024 revealed: EF of 60%, pseudonormal LV filling, dilated RV, VIVIANA, mild AI, Mild MR, mild to moderate TR and RVSP of 55 mmHg. Echocardiogram of September 11, 2024 (performed in the office) reported ejection fraction of 55-60%, pseudo-normal left ventricular diastolic dysfunction, mild biatrial enlargement, mild mitral regurgitation, tricuspid regurgitation, atrial insufficiency, mild mitral annular calcification and right ventricular systolic pressure of less than 35 mm Hg Echocardiogram of June 05, 2024 reported mild concentric left ventricular hypertrophy, ejection fraction of 45-50%, mild biatrial enlargement, mild aortic insufficiency/tricuspid regurgitation/trace mitral regurgitation. Right ventricular systolic pressure of 48 mm Hg. Echocardiogram of January 2024 had revealed: Ejection fraction of 40-45%, anterior/anteroseptal hypokinesia, biatrial enlargement, right ventricular systolic pressure 45 mm Hg. Echocardiogram October 28, 2023 had revealed mild concentric left ventricular hypertrophy, LVEF of 52% with mild diffuse hypokinesis, dilated RV/LA/RA, [id number]-[id number] aortic insufficiency, mild MR, moderate TR and right ventricular systolic pressure of 60 mm Hg Echocardiogram of November 08, 2023 (performed in [facility]) had reported: LVEF of 50%, [id number] TR, mild aortic insufficiency and right ventricular systolic pressure of 49 mm Hg Echocardiogram of September 15, 2023 (performed and [facility]) revealed ejection fraction of 45-50% Echocardiogram of March 22, 2023 (performed in the office) revealed ejection fraction of 65-70%, mild concentric left ventricular hypertrophy, moderate biatrial enlargement, [id number] MR/TR, mild AI/PI and right ventricular systolic pressure of 66 mm Hg. Left heart catheterization on August 04, 2023 revealed: 1 vessel coronary artery disease and status post PCI (drug-eluting stent deployment of ostial LAD, LVEF of 60% with increased LVEDP, patent stent in mid LAD, type 2 pulmonary hypertension. CTA of lungs: 1. No evidence of pulmonary embolism. 2. CHF/ volume overload, with interstitial pulmonary edema, small bilateral pleural effusions, chest wall edema, and mild cardiomegaly. 3. Ubvp-ev-[id number] 3-vessel calcified coronary artery disease and mild aortic valve calcification. 4. Bilateral hilar, mediastinal, and supraclavicular lymphadenopathy, nonspecific though could be reactive or passive congestion. Consider follow-up CT in 3 months to re-evaluate this finding. 5. Persistent cystic mass in the tail of the pancreas without significant change. Follow-up MRI was previously recommended on 11/30/2024 Venous duplex of bilateral lower ext: IMPRESSION: NO SONOGRAPHIC EVIDENCE FOR DEEP VENOUS THROMBOSIS IN THE BILATERAL LOWER EXTREMITY VEINS. Venous duplex of bilateral upper ext: IMPRESSION: 1. Positive for Acute appearing deep vein thrombus in the right upper extremity internal jugular vein. 2. Positive for Acute Occlusive superficial femoral vein thrombus in the left upper extremity basilic vein. 3. Indeterminate hypoechoic structure adjacent to the right axillary vein which could reflect an indeterminate lymph node. Follow- up was recommended on the separately dictated same day CTA chest. ASSESSMENT: Acute hypoxemic respiratory failure Acute on chronic diastolic heart failure Concern for underlying COPD exacerbation Fluid overload, with known history of ESRD on HD Underlying history of type II pulmonary hypertension Anemia of chronic disease, in the setting of ESRD on HD Uncontrolled hypertension with evidence for hypertensive urgency Minimal/flat elevation of HS troponins, assessed to reflect type II physiology due to above Coronary artery disease, status post previous PCI's x 2 Presence of Medtronic Micra permanent pacemaker Previous history of provoked DVT Old history of underlying RBBB Old history of previous CVA Obstructive sleep apnea Diabetes mellitus Hyperlipidemia DVT: upper ext CARDIAC SUGGESTION FOR MANAGEMENT: Awaiting device interrogation (MDT) Recognizing clinical presentation/objective findings, ACS at this point is not considered Minimal/flat elevation of HS troponins are assessed to reflect type II physiology at this point No indication warranted for repeat ischemic workup at present time of admission Proceed with optimized medical therapy and aggressive risk factor modification Fluid volume management as per nephrology services via hemodialysis Proceed with close observation for overt signs of fluid overload Proceed with strict intakes, outputs, and daily weights Proceed with supplemental oxygen as warranted On empiric IV antibiotic therapy as per primary Avoidance of QTC prolonging agents advised Follow up Pulmonology recommendations Hydralazine 25mg twice daily Atorvastatin 40mg once daily Nifedipine 60mg once daily Oral Lasix Recognizing PCI > 1 year ago in a patient with chronic anemia with previous GI bleed found to have acute appearing DVT involving RUE requiring AC discontinuation of previous Aspirin 81mg daily can be justified with consideration of pursuing oral AC when stable. Initiated on low-dose Eliquis The above was discussed at length with daughter Teresa which she remains agreeable to the plan of care To proceed with close observation of HGB levels and for any overt signs of bleeding during the interim Transfuse to sustain HGB levels above 7.0 Patient does have appointment with [facility] as [facility] for further work up on previously discovered pancreatic tail cystic mass in March 2025. Evaluation and management of pancreatic findings as per primary team Consider GI/surgery evaluation for pancreatic tail cystic mass Consider Imaging of pancreas: MRI (as suggested by Radiology). PM is MRI conditional. Management of concurrent medical conditions per primary team Management of comorbidities as per primary team Proceed with close rate and rhythm surveillance Proceed with close hemodynamic surveillance Proceed with optimized blood pressure control Transfuse to sustain HGB level above 7.0 Sustain Magnesium level greater than 2.0 Sustain Potassium level greater than 4.0 Follow up renal function and electrolytes Management in telemetry Follow up foreign law consultant recommendations Will proceed to follow from a cardiac perspective Further recommendations per clinical progression All available diagnostic labs, EKG's, and images were personally reviewed Plan of care discussed with and agreed upon by patient / primary RN Prognosis: Guarded Thank you for allowing me to participate in the care of this patient. Further recommendations based on patients clinical course and progression, primary attending, and other consultants. Will continue to follow with primary attending. If you have any questions or concerns, please do not hesitate to contact me. A total of 55 minutes was spent reviewing the patient record, examining the patient, making a diagnostic and therapeutic plan, discussing this plan with medical personnel, following up on diagnostic studies and following the patient for clinical stability excluding any and all procedures. At least 50% of this time was spent in direct, [id number] contact. Dietary Evaluation Review Comments: Encourage and monitor PO intake to meet his needs Reinforce dietary sodium restrition Monitor cholesterol levels Expected Outcomes/Goals: No wt loss, fluid/electolyte in balance Plan discussed with: Patient (patient, daughter jossie, primary rn) BLANE STONER Mar 09, 2025 16:28
--- NOTE | 2025-03-09 20:01 | DVHPN2 ---
Progress Note - Dictate Date Seen: Mar 09, 2025 Has the PT tested + for MRSA If YES, has PT been informed?: No Medical Necessity Reason Pt with a Central, PICC or Fol: No Subjective Patient was seen and evaluated in follow up. Chart/events reviewed. Patient's oxygen requirements slightly improved, currently on 8L via simple mask. No new complaints. Pleural fluid cultures with no growth so far, few WBCs seen. vital signs Vital Sign Date Time Temp Pulse Resp B/P (MAP) Pulse Ox O2 Delivery O2 Flow Rate FiO2 03/09/25 17:00 98.3 78 17 156/91 (112) 92 98.3 03/09/25 10:26 Simple Mask* 8 60 Total Intake and Output 03/08/25 03/08/25 03/09/25 15:00 23:00 07:00 Intake Total 150 ml 370 ml 200 ml Balance 150 ml 370 ml 200 ml medications Current Medications Medications Dose Ordered Sig/Nereyda Route Start Time Stop Time Status Last Admin Dose Admin Sodium Chloride 10 ml Q8HR IV 02/26/25 22:00 03/09/25 14:39 10 ML Ondansetron HCl 4 mg Q4HP PRN IV 02/26/25 15:30 03/03/25 18:25 4 MG Docusate Sodium 100 mg BIDPRN PRN PO 02/26/25 15:30 02/27/25 17:40 100 MG Acetaminophen 650 mg Q6HP PRN PO 02/26/25 15:30 03/03/25 10:11 650 MG Morphine Sulfate 2 mg Q4HPRN PRN IV 02/26/25 15:30 Hold Nitroglycerin 0.4 mg Q5MINP PRN SL 02/26/25 15:30 03/03/25 10:31 0.4 MG Bupropion HCl 150 mg DAILY PO 02/27/25 10:00 03/09/25 09:37 150 MG Clonidine HCl 0.1 mg Q8HPRN PRN PO 02/26/25 15:30 03/09/25 01:50 0.1 MG Duloxetine HCl 30 mg DAILY PO 02/27/25 10:00 03/09/25 09:36 30 MG Meclizine HCl 25 mg BIDP PRN PO 02/26/25 15:30 02/27/25 17:36 25 MG Minoxidil 2.5 mg BID PO 02/26/25 22:00 03/08/25 22:56 2.5 MG Pantoprazole Sodium 40 mg DAILY PO 02/27/25 10:00 03/09/25 09:37 40 MG Trazodone HCl 50 mg HS PO 02/26/25 22:00 03/08/25 22:57 50 MG Atorvastatin Calcium 80 mg HS PO 02/26/25 22:00 03/08/25 22:51 80 MG Patient Own Medication 1 tab BID PO 02/26/25 22:00 Hold Donepezil HCl 5 mg DAILY PO 02/27/25 10:00 03/09/25 09:37 5 MG Ipratropium [place] 0.5 mg Q4HPRN PRN NEB 02/26/25 16:15 03/07/25 09:25 0.5 MG Albuterol 2.5 mg Q4HPRN PRN NEB 02/26/25 16:15 03/07/25 09:25 2.5 MG Diagnostic Test (Pha) 1 strip ACHS 02/26/25 22:00 03/09/25 17:00 1 STRIP Insulin Human Regular HS SC 02/26/25 22:00 03/08/25 23:10 2 UNITS Insulin Human Regular AC SC 02/27/25 07:00 03/09/25 18:35 6 UNITS Dextrose 50 ml UD PRN IV 02/26/25 17:15 03/09/25 01:33 50 ML Doxycycline Hyclate 100 ml @ 50 mls/hr Q12H IV 02/28/25 11:00 03/09/25 14:39 50 MLS/HR Enteral Nutritional Formula 240 ml TIDWM PO 02/28/25 12:00 03/09/25 18:00 240 ML Lactulose 30 ml DAILYPRN PRN PO 03/01/25 10:00 03/09/25 14:37 30 ML Hydromorphone HCl 0.5 mg Q4HPRN PRN IV 03/03/25 11:45 03/09/25 16:32 0.5 MG Ceftazidime/ Dextrose 0.5 gm/ Sodium Chloride 50 ml @ 50 mls/hr DAILY IV 03/04/25 10:00 03/09/25 09:38 50 MLS/HR Nifedipine 60 mg BID PO 03/04/25 22:00 03/08/25 22:55 60 MG Hydralazine HCl 25 mg Q12HR PO 03/04/25 22:00 03/08/25 22:56 25 MG Furosemide 20 mg DAILY PO 03/06/25 10:00 03/09/25 09:37 20 MG Apixaban 2.5 mg BID PO 03/06/25 22:00 03/13/25 21:59 03/08/25 22:57 2.5 MG objective Vitals and nursing notes reviewed. General Appearance: In no acute distress. HEENT: Atraumatic, PERRLA, Mucous membr. moist/pink Respiratory: Diminished breath sounds present. No wheezing. Cardiovascular: Regular rate, Normal S1, Normal S2 Abdominal: Normal bowel sounds, Soft, No tenderness Extremities: No clubbing, No cyanosis, No edema, Normal pulses, Other (right arm fistula) Skin: No rashes, No breakdown, No significant lesion Neuro: Alert, Oriented X3, Normal speech Psych/Mental Status: Mental status NL, Mood NL laboratory and microbiology Laboratory Tests 03/09/25 08:59 Test 03/09/25 08:59 Range/Units Serum Glucose 87 74-106 mg/dL Problem List Acute hypoxic respiratory failure Chest pain Elevated troponin ESRD on HD Assessment/Plan Agree with current supportive medical care. Cardiology and Pulmonary Medicine following. S/p thoracentesis 03/07. Cultures are negative so far. Supplemental oxygen to keep sats >92%. MedNeb breathing treatments. HD scheduled today. Continue Lasix 20 mg PO daily. IV antibiotics. Renal diet. Continued on Eliquis. Additional plan as per the hospital course. Dietary Evaluation Review Comments: Encourage and monitor PO intake to meet his needs Reinforce dietary sodium restrition Monitor cholesterol levels Expected Outcomes/Goals: No wt loss, fluid/electolyte in balance Plan discussed with: Patient, Other (RN) HARJINDER RUTHERFORD DO Mar 09, 2025 20:01
[2025-03-10] VITALS (12 sets, daily range): BP systolic 109–163; BP diastolic 57–96; PULSE 65–74; RESP 16–18; TEMP 97.4–98.4; O2SAT 98–100
[2025-03-10] MEDS: DOXYCYCLINE 100MG/100ML 100 ML IV SCH (02:08)
[2025-03-10 05:10] LABS: Hematocrit 25.6 % (41.0-53.0); Hemoglobin 8.4 g/dL (13.5-17.5); Mean Corpuscular Hemoglobin 31.5 pg (28.0-32.0); Mean Corpuscular Volume 96.6 fL (80.0-100.0); Nucleated Red Blood Cells % 0.2 %
--- NOTE | 2025-03-10 09:20 | DVHPN2 ---
Progress Note - Dictate Date Seen: Mar 10, 2025 Has the PT tested + for MRSA If YES, has PT been informed?: No Medical Necessity Reason Pt with a Central, PICC or Fol: No Subjective Patient was seen and evaluated in follow up. No acute events overnight. Patient complains of shortness of breath but reports feeling better. Received dialysis again today with 1.7 removed. vital signs Vital Sign Date Time Temp Pulse Resp B/P (MAP) Pulse Ox O2 Delivery O2 Flow Rate FiO2 03/10/25 08:58 97.4 71 18 124/61 (82) 99 97.4 03/10/25 07:15 Mask 6.0 03/10/25 07:15 50 Total Intake and Output 03/09/25 03/09/25 03/10/25 15:00 23:00 07:00 Intake Total 450 ml 400 ml Output Total 100 ml 150 ml Balance 350 ml 250 ml medications Current Medications Medications Dose Ordered Sig/Nereyda Route Start Time Stop Time Status Last Admin Dose Admin Sodium Chloride 10 ml Q8HR IV 02/26/25 22:00 03/10/25 06:05 10 ML Ondansetron HCl 4 mg Q4HP PRN IV 02/26/25 15:30 03/03/25 18:25 4 MG Docusate Sodium 100 mg BIDPRN PRN PO 02/26/25 15:30 02/27/25 17:40 100 MG Acetaminophen 650 mg Q6HP PRN PO 02/26/25 15:30 03/03/25 10:11 650 MG Morphine Sulfate 2 mg Q4HPRN PRN IV 02/26/25 15:30 Hold Nitroglycerin 0.4 mg Q5MINP PRN SL 02/26/25 15:30 03/03/25 10:31 0.4 MG Bupropion HCl 150 mg DAILY PO 02/27/25 10:00 03/09/25 09:37 150 MG Clonidine HCl 0.1 mg Q8HPRN PRN PO 02/26/25 15:30 03/09/25 01:50 0.1 MG Duloxetine HCl 30 mg DAILY PO 02/27/25 10:00 03/09/25 09:36 30 MG Meclizine HCl 25 mg BIDP PRN PO 02/26/25 15:30 02/27/25 17:36 25 MG Minoxidil 2.5 mg BID PO 02/26/25 22:00 03/09/25 21:36 2.5 MG Pantoprazole Sodium 40 mg DAILY PO 02/27/25 10:00 03/09/25 09:37 40 MG Trazodone HCl 50 mg HS PO 02/26/25 22:00 03/09/25 21:37 50 MG Atorvastatin Calcium 80 mg HS PO 02/26/25 22:00 03/09/25 21:37 80 MG Patient Own Medication 1 tab BID PO 02/26/25 22:00 Hold Donepezil HCl 5 mg DAILY PO 02/27/25 10:00 03/09/25 09:37 5 MG Ipratropium [place] 0.5 mg Q4HPRN PRN NEB 02/26/25 16:15 03/07/25 09:25 0.5 MG Albuterol 2.5 mg Q4HPRN PRN NEB 02/26/25 16:15 03/07/25 09:25 2.5 MG Diagnostic Test (Pha) 1 strip ACHS 02/26/25 22:00 03/10/25 06:05 1 STRIP Insulin Human Regular HS SC 02/26/25 22:00 03/08/25 23:10 2 UNITS Insulin Human Regular AC SC 02/27/25 07:00 03/09/25 18:35 6 UNITS Dextrose 50 ml UD PRN IV 02/26/25 17:15 03/09/25 01:33 50 ML Enteral Nutritional Formula 240 ml TIDWM PO 02/28/25 12:00 03/09/25 18:00 240 ML Lactulose 30 ml DAILYPRN PRN PO 03/01/25 10:00 03/09/25 14:37 30 ML Hydromorphone HCl 0.5 mg Q4HPRN PRN IV 03/03/25 11:45 03/10/25 01:28 0.5 MG Ceftazidime/ Dextrose 0.5 gm/ Sodium Chloride 50 ml @ 50 mls/hr DAILY IV 03/04/25 10:00 03/09/25 09:38 50 MLS/HR Nifedipine 60 mg BID PO 03/04/25 22:00 03/08/25 22:55 60 MG Hydralazine HCl 25 mg Q12HR PO 03/04/25 22:00 03/09/25 21:37 25 MG Furosemide 20 mg DAILY PO 03/06/25 10:00 03/09/25 09:37 20 MG Apixaban 2.5 mg BID PO 03/06/25 22:00 03/13/25 21:59 03/09/25 21:37 2.5 MG Doxycycline Hyclate 100 ml @ 50 mls/hr Q12H IV 03/09/25 02:45 03/10/25 02:08 50 MLS/HR objective Vitals and nursing notes reviewed. General Appearance: In no acute distress. HEENT: Atraumatic, PERRLA, Mucous membr. moist/pink Respiratory: Diminished breath sounds present. No wheezing. Cardiovascular: Regular rate, Normal S1, Normal S2 Abdominal: Normal bowel sounds, Soft, No tenderness Extremities: No clubbing, No cyanosis, No edema, Normal pulses, Other (right arm fistula) Skin: No rashes, No breakdown, No significant lesion Neuro: Alert, Oriented X3, Normal speech Psych/Mental Status: Mental status NL, Mood NL laboratory and microbiology Laboratory Tests 03/10/25 04:01 03/09/25 08:59 Test 03/09/25 08:59 Range/Units Serum Glucose 87 74-106 mg/dL Problem List Acute hypoxic respiratory failure Chest pain Elevated troponin ESRD on HD Assessment/Plan Agree with current supportive medical care. Cardiology and Pulmonary Medicine following. S/p thoracentesis 03/07. Pleural fluid cultures are negative so far. Supplemental oxygen to keep sats >92%. MedNeb breathing treatments. HD 03/10. Continue Lasix 20 mg PO daily. IV antibiotics. Renal diet. Continued on Eliquis. Additional plan as per the hospital course. Dietary Evaluation Review Comments: Encourage and monitor PO intake to meet his needs Reinforce dietary sodium restrition Monitor cholesterol levels Expected Outcomes/Goals: No wt loss, fluid/electolyte in balance Plan discussed with: Patient, Other (RN) HARJINDER RUTHERFORD DO Mar 10, 2025 09:20
--- NOTE | 2025-03-10 14:44 | DVHPN2 ---
Subjective The patient is seen and examined at bedside. Complains of shortness of breath but feel better today. HD today again Reviewed: Care Plan, H&P, Labs, Medications, Previous Orders, Radiology Changes from previous H/P or p: No Changes Eyes: No Pain, No Vision change, No Conjunctivae inflammation, No Eyelid inflammation, No Other, No Redness ENT: No Ear pain, No Ear discharge, No Nose pain, No Nose discharge, No Nose congestion, No Mouth pain, No Mouth swelling, No Throat pain, No Throat swelling, No Other Cardiovascular: Chest Pain; No Palpitations, No Orthopnea, No Paroxysmal Noc. Dyspnea, No Edema, No Lt Headedness, No Other Respiratory: No Cough, No Dry; Shortness of breath, SOB with excertion; No Wheezing, No Hemoptysis, No Pleuritic Pain, No Sputum, No Other Gastrointestinal: No Nausea, No Vomiting, No Abdominal Pain, No Diarrhea, No Constipation, No Melena, No Hematochezia, No Other Genitourinary: No Dysuria, No Frequency, No Incontinence, No Hematuria, No Retention, No Other Musculoskeletal: No other, No neck pain, No shoulder pain, No arm pain, No back pain, No hand pain, No leg pain, No foot pain Skin: No Rash, No Lesions, No Jaundice, No Bruising, No Other Objective Vitals Vital Signs Date Time Temp Pulse Resp B/P (MAP) Pulse Ox O2 Delivery O2 Flow Rate FiO2 03/10/25 13:00 97.4 74 18 163/96 (118) 100 97.4 03/10/25 10:00 Simple Mask* 6 50 Intake/Output Intake and Output 03/10/25 07:00 Intake Total 850 ml Output Total 250 ml Balance 600 ml Intake Oral 850 ml Output Urine Total 250 ml General Appearance: Alert, Oriented X3, Cooperative, No acute distress HEENT: Atraumatic, PERRLA, EOMI, Mucous membr. moist/pink Lungs: Clear to auscultation, Normal air movement Cardiovascular: Regular rate, Normal S1, Normal S2, No murmurs, Gallops, Rubs Abdomen: Normal bowel sounds, Soft, No tenderness Extremities: No edema Neuro: Cranial nerves 3-12 NL Psych/Mental Status: Mental status NL Medications Current Medications Medications Dose Ordered Sig/Nereyda Route Start Time Stop Time Status Last Admin Dose Admin Sodium Chloride 10 ml Q8HR IV 02/26/25 22:00 03/10/25 14:20 10 ML Ondansetron HCl 4 mg Q4HP PRN IV 02/26/25 15:30 03/03/25 18:25 4 MG Docusate Sodium 100 mg BIDPRN PRN PO 02/26/25 15:30 02/27/25 17:40 100 MG Acetaminophen 650 mg Q6HP PRN PO 02/26/25 15:30 03/03/25 10:11 650 MG Morphine Sulfate 2 mg Q4HPRN PRN IV 02/26/25 15:30 Hold Nitroglycerin 0.4 mg Q5MINP PRN SL 02/26/25 15:30 03/03/25 10:31 0.4 MG Bupropion HCl 150 mg DAILY PO 02/27/25 10:00 03/10/25 10:19 150 MG Clonidine HCl 0.1 mg Q8HPRN PRN PO 02/26/25 15:30 03/09/25 01:50 0.1 MG Duloxetine HCl 30 mg DAILY PO 02/27/25 10:00 03/10/25 10:18 30 MG Meclizine HCl 25 mg BIDP PRN PO 02/26/25 15:30 02/27/25 17:36 25 MG Minoxidil 2.5 mg BID PO 02/26/25 22:00 03/10/25 10:31 2.5 MG Pantoprazole Sodium 40 mg DAILY PO 02/27/25 10:00 03/10/25 10:19 40 MG Trazodone HCl 50 mg HS PO 02/26/25 22:00 03/09/25 21:37 50 MG Atorvastatin Calcium 80 mg HS PO 02/26/25 22:00 03/09/25 21:37 80 MG Patient Own Medication 1 tab BID PO 02/26/25 22:00 Hold Donepezil HCl 5 mg DAILY PO 02/27/25 10:00 03/10/25 10:19 5 MG Ipratropium [place] 0.5 mg Q4HPRN PRN NEB 02/26/25 16:15 03/07/25 09:25 0.5 MG Albuterol 2.5 mg Q4HPRN PRN NEB 02/26/25 16:15 03/07/25 09:25 2.5 MG Diagnostic Test (Pha) 1 strip ACHS 02/26/25 22:00 03/10/25 11:30 1 STRIP Insulin Human Regular HS SC 02/26/25 22:00 03/08/25 23:10 2 UNITS Insulin Human Regular AC SC 02/27/25 07:00 03/10/25 12:26 3 UNITS Dextrose 50 ml UD PRN IV 02/26/25 17:15 03/09/25 01:33 50 ML Enteral Nutritional Formula 240 ml TIDWM PO 02/28/25 12:00 03/10/25 12:25 240 ML Lactulose 30 ml DAILYPRN PRN PO 03/01/25 10:00 03/09/25 14:37 30 ML Hydromorphone HCl 0.5 mg Q4HPRN PRN IV 03/03/25 11:45 03/10/25 10:20 0.5 MG Ceftazidime/ Dextrose 0.5 gm/ Sodium Chloride 50 ml @ 50 mls/hr DAILY IV 03/04/25 10:00 03/10/25 10:17 50 MLS/HR Nifedipine 60 mg BID PO 03/04/25 22:00 03/10/25 10:18 60 MG Hydralazine HCl 25 mg Q12HR PO 03/04/25 22:00 03/10/25 10:18 25 MG Furosemide 20 mg DAILY PO 03/06/25 10:00 03/10/25 10:19 20 MG Apixaban 2.5 mg BID PO 03/06/25 22:00 03/13/25 21:59 03/10/25 10:19 2.5 MG Doxycycline Hyclate 100 ml @ 50 mls/hr Q12H IV 03/09/25 02:45 03/10/25 02:08 50 MLS/HR Laboratory Results Laboratory Tests 03/09/25 08:59 03/10/25 04:01 Microbiology Microbiology Date/Time Source Procedure Growth Status 03/07/25 17:15 Pleural Fluid Gram Stain - Final Resulted 03/07/25 17:15 Pleural Fluid Body Fluid Culture - Preliminary Resulted 02/28/25 10:03 Sputum Gram Stain - Final Complete 02/28/25 10:03 Respiratory Culture - Final Enterobacter cloacae Complete 02/27/25 06:33 Nose MRSA Screen - Final Complete Labs and/or images reviewed: Labs reviewed by me Assessment/Plan Assessment/Plan Acute hypoxic respiratory failure, resolved Chronic respiratory failure on home O2 ESRD COPD DM2 HTN Mixed hyperlipidemia Elevated troponin probable 2nd to NSTEMI type 2 DVT of right upper extremities Superficial thrombus of left upper extremities. Pancreatic cystic mass. Anemia PLAN: Continue current management. Continue with Oxygen Continue HD per schedule Continue IV antibiotic. Appreciate fleet manager input Waiting for sputum culture. Stat trop is elevated. Will check trop q6h x 3 Stat EKG Appreciate Service Employee in put No further cardiac work up CTA of chest show no PE US show DVT of right UE with attach to lymph node. Start on eliquis yesterday. Stop heparin drip. Will monitor. concern because of history of GI bleed 1 year ago. Explains to her that he need to prevent more clot in his arm. but I can stop the eliquis if he wish. He need to understand the risk of DVT and possible PE if not on anticoagulation. The patient state that he want to be on anticoagulation, eliquis for now. Hb stable today. No melena, no BRBPR DW patient and regarding to the lymph node and cystic mass. They [facility] for further work up on the mass in March 2025. Continue current management. This medical document was created using an electronic medical record system with [employer] direct computerized dictation system. Although this document has been carefully reviewed, there may still be some phonetic and typographical errors. These areas are purely typographical due to imperfections of the software programs, and do not reflect any compromise in the patient's medical care. Plan discussed with: Patient Date of Service: Mar 10, 2025 Billing Provider: GERMAINE ULLOA MD Common Visit Codes: [id number] INP/OBS CARE(HIGH) GERMAINE ULLOA MD Mar 10, 2025 14:44
[2025-03-10] MEDS ORDERED: SODIUM CHL 0.9% 1000 ML BAG XX ONE (15:00)
--- NOTE | 2025-03-10 15:16 | DVHPN2 ---
Progress Note - Dictate Date Seen: Mar 10, 2025 Medical Necessity Reason Pt with a Central, PICC or Fol: No vital signs Vital Sign Date Time Temp Pulse Resp B/P (MAP) Pulse Ox O2 Delivery O2 Flow Rate FiO2 03/10/25 13:00 97.4 74 18 163/96 (118) 100 97.4 03/10/25 10:00 Simple Mask* 6 50 Total Intake and Output 03/09/25 03/09/25 03/10/25 15:00 23:00 07:00 Intake Total 450 ml 400 ml Output Total 100 ml 150 ml Balance 350 ml 250 ml medications Current Medications Medications Dose Ordered Sig/Nereyda Route Start Time Stop Time Status Last Admin Dose Admin Sodium Chloride 10 ml Q8HR IV 02/26/25 22:00 03/10/25 14:20 10 ML Ondansetron HCl 4 mg Q4HP PRN IV 02/26/25 15:30 03/03/25 18:25 4 MG Docusate Sodium 100 mg BIDPRN PRN PO 02/26/25 15:30 02/27/25 17:40 100 MG Acetaminophen 650 mg Q6HP PRN PO 02/26/25 15:30 03/03/25 10:11 650 MG Morphine Sulfate 2 mg Q4HPRN PRN IV 02/26/25 15:30 Hold Nitroglycerin 0.4 mg Q5MINP PRN SL 02/26/25 15:30 03/03/25 10:31 0.4 MG Bupropion HCl 150 mg DAILY PO 02/27/25 10:00 03/10/25 10:19 150 MG Clonidine HCl 0.1 mg Q8HPRN PRN PO 02/26/25 15:30 03/09/25 01:50 0.1 MG Duloxetine HCl 30 mg DAILY PO 02/27/25 10:00 03/10/25 10:18 30 MG Meclizine HCl 25 mg BIDP PRN PO 02/26/25 15:30 02/27/25 17:36 25 MG Minoxidil 2.5 mg BID PO 02/26/25 22:00 03/10/25 10:31 2.5 MG Pantoprazole Sodium 40 mg DAILY PO 02/27/25 10:00 03/10/25 10:19 40 MG Trazodone HCl 50 mg HS PO 02/26/25 22:00 03/09/25 21:37 50 MG Atorvastatin Calcium 80 mg HS PO 02/26/25 22:00 03/09/25 21:37 80 MG Patient Own Medication 1 tab BID PO 02/26/25 22:00 Hold Donepezil HCl 5 mg DAILY PO 02/27/25 10:00 03/10/25 10:19 5 MG Ipratropium [place] 0.5 mg Q4HPRN PRN NEB 02/26/25 16:15 03/07/25 09:25 0.5 MG Albuterol 2.5 mg Q4HPRN PRN NEB 02/26/25 16:15 03/07/25 09:25 2.5 MG Diagnostic Test (Pha) 1 strip ACHS 02/26/25 22:00 03/10/25 11:30 1 STRIP Insulin Human Regular HS SC 02/26/25 22:00 03/08/25 23:10 2 UNITS Insulin Human Regular AC SC 02/27/25 07:00 03/10/25 12:26 3 UNITS Dextrose 50 ml UD PRN IV 02/26/25 17:15 03/09/25 01:33 50 ML Enteral Nutritional Formula 240 ml TIDWM PO 02/28/25 12:00 03/10/25 12:25 240 ML Lactulose 30 ml DAILYPRN PRN PO 03/01/25 10:00 03/09/25 14:37 30 ML Hydromorphone HCl 0.5 mg Q4HPRN PRN IV 03/03/25 11:45 03/10/25 10:20 0.5 MG Ceftazidime/ Dextrose 0.5 gm/ Sodium Chloride 50 ml @ 50 mls/hr DAILY IV 03/04/25 10:00 03/10/25 10:17 50 MLS/HR Nifedipine 60 mg BID PO 03/04/25 22:00 03/10/25 10:18 60 MG Hydralazine HCl 25 mg Q12HR PO 03/04/25 22:00 03/10/25 10:18 25 MG Furosemide 20 mg DAILY PO 03/06/25 10:00 03/10/25 10:19 20 MG Apixaban 2.5 mg BID PO 03/06/25 22:00 03/13/25 21:59 03/10/25 10:19 2.5 MG Doxycycline Hyclate 100 ml @ 50 mls/hr Q12H IV 03/09/25 02:45 03/10/25 02:08 50 MLS/HR laboratory and microbiology Laboratory Tests 03/10/25 04:01 03/09/25 08:59 Test 03/09/25 08:59 Range/Units Serum Glucose 87 74-106 mg/dL Assessment/Plan Acute on chronic hypoxic respiratory failure Elevated troponin Pulmonary edema Pulmonary vascular congestion End-stage renal disease on hemodialysis Can not rule out underlying pneumonia Events: On 5 LPM NC Undergoing hemodialysis No new events Labs and imaging reviewed Plan: Supplemental oxygen Titrate to keep O2 saturation above 92%. Complete antibiotic course. Sputum cultures grew moderate yeast, few GPC and few gram positive rods. MRSA negative Bronchodilators Monitor renal function Hemodialysis per nephrology Monitor electrolytes Supplement as necessary. Monitor ins and outs Arrange for stationary concentrator at home that goes up to 10 L/min Social work Services consultation placed GI prophylaxis-Protonix Dietary Evaluation Review Comments: Encourage and monitor PO intake to meet his needs Reinforce dietary sodium restrition Monitor cholesterol levels Expected Outcomes/Goals: No wt loss, fluid/electolyte in balance Plan discussed with: Patient JASON GUSTAFSON MD Mar 10, 2025 15:16
[2025-03-11] VITALS (12 sets, daily range): BP systolic 129–165; BP diastolic 50–71; PULSE 67–81; RESP 16–18; TEMP 97.6–98.4; O2SAT 93–100
--- NOTE | 2025-03-11 14:12 | DVHPN2 ---
Progress Note - Dictate Date Seen: Mar 11, 2025 Medical Necessity Reason Pt with a Central, PICC or Fol: No vital signs Vital Sign Date Time Temp Pulse Resp B/P (MAP) Pulse Ox O2 Delivery O2 Flow Rate FiO2 03/11/25 13:47 163/71 03/11/25 13:41 76 16 03/11/25 09:33 100 Simple Mask* 6 50 03/11/25 09:00 97.9 97.9 Total Intake and Output 03/10/25 03/10/25 03/11/25 15:00 23:00 07:00 Intake Total 50 ml 480 ml 300 ml Output Total 0 ml Balance 50 ml 480 ml 300 ml medications Current Medications Medications Dose Ordered Sig/Nereyda Route Start Time Stop Time Status Last Admin Dose Admin Sodium Chloride 10 ml Q8HR IV 02/26/25 22:00 03/11/25 06:03 10 ML Ondansetron HCl 4 mg Q4HP PRN IV 02/26/25 15:30 03/03/25 18:25 4 MG Docusate Sodium 100 mg BIDPRN PRN PO 02/26/25 15:30 02/27/25 17:40 100 MG Acetaminophen 650 mg Q6HP PRN PO 02/26/25 15:30 03/03/25 10:11 650 MG Morphine Sulfate 2 mg Q4HPRN PRN IV 02/26/25 15:30 Hold Nitroglycerin 0.4 mg Q5MINP PRN SL 02/26/25 15:30 03/03/25 10:31 0.4 MG Bupropion HCl 150 mg DAILY PO 02/27/25 10:00 03/11/25 08:42 150 MG Clonidine HCl 0.1 mg Q8HPRN PRN PO 02/26/25 15:30 03/11/25 13:47 0.1 MG Duloxetine HCl 30 mg DAILY PO 02/27/25 10:00 03/11/25 08:40 30 MG Meclizine HCl 25 mg BIDP PRN PO 02/26/25 15:30 02/27/25 17:36 25 MG Minoxidil 2.5 mg BID PO 02/26/25 22:00 03/11/25 08:38 2.5 MG Pantoprazole Sodium 40 mg DAILY PO 02/27/25 10:00 03/11/25 08:42 40 MG Trazodone HCl 50 mg HS PO 02/26/25 22:00 03/10/25 21:48 50 MG Atorvastatin Calcium 80 mg HS PO 02/26/25 22:00 03/10/25 21:48 80 MG Patient Own Medication 1 tab BID PO 02/26/25 22:00 Hold Donepezil HCl 5 mg DAILY PO 02/27/25 10:00 03/11/25 08:39 5 MG Ipratropium [place] 0.5 mg Q4HPRN PRN NEB 02/26/25 16:15 03/07/25 09:25 0.5 MG Albuterol 2.5 mg Q4HPRN PRN NEB 02/26/25 16:15 03/07/25 09:25 2.5 MG Diagnostic Test (Pha) 1 strip ACHS 02/26/25 22:00 03/11/25 11:30 1 STRIP Insulin Human Regular HS SC 02/26/25 22:00 03/08/25 23:10 2 UNITS Insulin Human Regular AC SC 02/27/25 07:00 03/11/25 13:03 2 UNITS Dextrose 50 ml UD PRN IV 02/26/25 17:15 03/09/25 01:33 50 ML Enteral Nutritional Formula 240 ml TIDWM PO 02/28/25 12:00 03/11/25 12:00 240 ML Lactulose 30 ml DAILYPRN PRN PO 03/01/25 10:00 03/09/25 14:37 30 ML Hydromorphone HCl 0.5 mg Q4HPRN PRN IV 03/03/25 11:45 03/11/25 13:41 0.5 MG Ceftazidime/ Dextrose 0.5 gm/ Sodium Chloride 50 ml @ 50 mls/hr DAILY IV 03/04/25 10:00 03/11/25 08:30 50 MLS/HR Nifedipine 60 mg BID PO 03/04/25 22:00 03/11/25 08:41 60 MG Hydralazine HCl 25 mg Q12HR PO 03/04/25 22:00 03/11/25 08:39 25 MG Furosemide 20 mg DAILY PO 03/06/25 10:00 03/11/25 08:41 20 MG Apixaban 2.5 mg BID PO 03/06/25 22:00 03/13/25 21:59 03/11/25 08:39 2.5 MG Doxycycline Hyclate 100 ml @ 50 mls/hr Q12H IV 03/09/25 02:45 03/11/25 02:32 50 MLS/HR laboratory and microbiology Laboratory Tests 03/10/25 04:01 03/09/25 08:59 Test 03/09/25 08:59 Range/Units Serum Glucose 87 74-106 mg/dL Assessment/Plan Acute on chronic hypoxic respiratory failure Elevated troponin Pulmonary edema Pulmonary vascular congestion End-stage renal disease on hemodialysis Can not rule out underlying pneumonia Events: Low oxygen requirements On 5 LPM NC No distress S/p HD Labs and imaging reviewed Plan: Supplemental oxygen Titrate to keep O2 saturation above 92%. Complete antibiotic course. Sputum cultures grew moderate yeast, few GPC and few gram positive rods. MRSA negative Bronchodilators Monitor renal function Hemodialysis per nephrology Monitor electrolytes Supplement as necessary. Monitor ins and outs Arrange for stationary concentrator at home that goes up to 10 L/min Social work Services consultation placed GI prophylaxis-Protonix Dietary Evaluation Review Comments: Encourage and monitor PO intake to meet his needs Reinforce dietary sodium restrition Monitor cholesterol levels Expected Outcomes/Goals: No wt loss, fluid/electolyte in balance Plan discussed with: Patient JASON GUSTAFSON MD Mar 11, 2025 14:12
--- NOTE | 2025-03-11 14:28 | DVHPN2 ---
Progress Note - Dictate Date Seen: Mar 11, 2025 Medical Necessity Reason Pt with a Central, PICC or Fol: No Subjective Patient was seen and evaluated in follow up. No acute events overnight. No new complaints. Patient is currently stable on 5-6L NC. S/p HD yesterday. vital signs Vital Sign Date Time Temp Pulse Resp B/P (MAP) Pulse Ox O2 Delivery O2 Flow Rate FiO2 03/11/25 13:47 163/71 03/11/25 13:41 76 16 03/11/25 13:00 97.6 100 97.6 03/11/25 09:33 Simple Mask* 6 50 Total Intake and Output 03/10/25 03/10/25 03/11/25 15:00 23:00 07:00 Intake Total 50 ml 480 ml 300 ml Output Total 0 ml Balance 50 ml 480 ml 300 ml medications Current Medications Medications Dose Ordered Sig/Nereyda Route Start Time Stop Time Status Last Admin Dose Admin Sodium Chloride 10 ml Q8HR IV 02/26/25 22:00 03/11/25 06:03 10 ML Ondansetron HCl 4 mg Q4HP PRN IV 02/26/25 15:30 03/03/25 18:25 4 MG Docusate Sodium 100 mg BIDPRN PRN PO 02/26/25 15:30 02/27/25 17:40 100 MG Acetaminophen 650 mg Q6HP PRN PO 02/26/25 15:30 03/03/25 10:11 650 MG Morphine Sulfate 2 mg Q4HPRN PRN IV 02/26/25 15:30 Hold Nitroglycerin 0.4 mg Q5MINP PRN SL 02/26/25 15:30 03/03/25 10:31 0.4 MG Bupropion HCl 150 mg DAILY PO 02/27/25 10:00 03/11/25 08:42 150 MG Clonidine HCl 0.1 mg Q8HPRN PRN PO 02/26/25 15:30 03/11/25 13:47 0.1 MG Duloxetine HCl 30 mg DAILY PO 02/27/25 10:00 03/11/25 08:40 30 MG Meclizine HCl 25 mg BIDP PRN PO 02/26/25 15:30 02/27/25 17:36 25 MG Minoxidil 2.5 mg BID PO 02/26/25 22:00 03/11/25 08:38 2.5 MG Pantoprazole Sodium 40 mg DAILY PO 02/27/25 10:00 03/11/25 08:42 40 MG Trazodone HCl 50 mg HS PO 02/26/25 22:00 03/10/25 21:48 50 MG Atorvastatin Calcium 80 mg HS PO 02/26/25 22:00 03/10/25 21:48 80 MG Patient Own Medication 1 tab BID PO 02/26/25 22:00 Hold Donepezil HCl 5 mg DAILY PO 02/27/25 10:00 03/11/25 08:39 5 MG Ipratropium [place] 0.5 mg Q4HPRN PRN NEB 02/26/25 16:15 03/07/25 09:25 0.5 MG Albuterol 2.5 mg Q4HPRN PRN NEB 02/26/25 16:15 03/07/25 09:25 2.5 MG Diagnostic Test (Pha) 1 strip ACHS 02/26/25 22:00 03/11/25 11:30 1 STRIP Insulin Human Regular HS SC 02/26/25 22:00 03/08/25 23:10 2 UNITS Insulin Human Regular AC SC 02/27/25 07:00 03/11/25 13:03 2 UNITS Dextrose 50 ml UD PRN IV 02/26/25 17:15 03/09/25 01:33 50 ML Enteral Nutritional Formula 240 ml TIDWM PO 02/28/25 12:00 03/11/25 12:00 240 ML Lactulose 30 ml DAILYPRN PRN PO 03/01/25 10:00 03/09/25 14:37 30 ML Hydromorphone HCl 0.5 mg Q4HPRN PRN IV 03/03/25 11:45 03/11/25 13:41 0.5 MG Ceftazidime/ Dextrose 0.5 gm/ Sodium Chloride 50 ml @ 50 mls/hr DAILY IV 03/04/25 10:00 03/11/25 08:30 50 MLS/HR Nifedipine 60 mg BID PO 03/04/25 22:00 03/11/25 08:41 60 MG Hydralazine HCl 25 mg Q12HR PO 03/04/25 22:00 03/11/25 08:39 25 MG Furosemide 20 mg DAILY PO 03/06/25 10:00 03/11/25 08:41 20 MG Apixaban 2.5 mg BID PO 03/06/25 22:00 03/13/25 21:59 03/11/25 08:39 2.5 MG Doxycycline Hyclate 100 ml @ 50 mls/hr Q12H IV 03/09/25 02:45 03/11/25 02:32 50 MLS/HR objective Vitals and nursing notes reviewed. General Appearance: In no acute distress. HEENT: Atraumatic, PERRLA, Mucous membr. moist/pink Respiratory: Diminished breath sounds present. No wheezing. Cardiovascular: Regular rate, Normal S1, Normal S2 Abdominal: Normal bowel sounds, Soft, No tenderness Extremities: No clubbing, No cyanosis, No edema, Normal pulses, Other (right arm fistula) Skin: No rashes, No breakdown, No significant lesion Neuro: Alert, Oriented X3, Normal speech Psych/Mental Status: Mental status NL, Mood NL laboratory and microbiology Laboratory Tests 03/10/25 04:01 03/09/25 08:59 Test 03/09/25 08:59 Range/Units Serum Glucose 87 74-106 mg/dL Problem List Acute hypoxic respiratory failure Chest pain Elevated troponin ESRD on HD Assessment/Plan Agree with current supportive medical care. Cardiology and Pulmonary Medicine following. S/p thoracentesis 03/07. Pleural fluid cultures are negative so far. Supplemental oxygen to keep sats >92%. MedNeb breathing treatments. Dialyzed yesterday. No HD today. Continue Lasix 20 mg PO daily. IV antibiotics. Renal diet. Continued on Eliquis. Additional plan as per the hospital course. Dietary Evaluation Review Comments: Encourage and monitor PO intake to meet his needs Reinforce dietary sodium restrition Monitor cholesterol levels Expected Outcomes/Goals: No wt loss, fluid/electolyte in balance Plan discussed with: Patient, Other (RN) HARJINDER RUTHERFORD DO Mar 11, 2025 14:28
--- NOTE | 2025-03-11 22:20 | DVHPN2 ---
Subjective The patient is seen and examined at bedside. Complains of shortness of breath but feel better today. Now required 6 L of oxygen oxymask. Patient used to be oxygen 10 L yesterday. Reviewed: Care Plan, H&P, Labs, Medications, Previous Orders, Radiology Changes from previous H/P or p: No Changes Eyes: No Pain, No Vision change, No Conjunctivae inflammation, No Eyelid inflammation, No Other, No Redness ENT: No Ear pain, No Ear discharge, No Nose pain, No Nose discharge, No Nose congestion, No Mouth pain, No Mouth swelling, No Throat pain, No Throat swelling, No Other Cardiovascular: Chest Pain; No Palpitations, No Orthopnea, No Paroxysmal Noc. Dyspnea, No Edema, No Lt Headedness, No Other Respiratory: No Cough, No Dry; Shortness of breath, SOB with excertion; No Wheezing, No Hemoptysis, No Pleuritic Pain, No Sputum, No Other Gastrointestinal: No Nausea, No Vomiting, No Abdominal Pain, No Diarrhea, No Constipation, No Melena, No Hematochezia, No Other Genitourinary: No Dysuria, No Frequency, No Incontinence, No Hematuria, No Retention, No Other Musculoskeletal: No other, No neck pain, No shoulder pain, No arm pain, No back pain, No hand pain, No leg pain, No foot pain Skin: No Rash, No Lesions, No Jaundice, No Bruising, No Other Objective Vitals Vital Signs Date Time Temp Pulse Resp B/P (MAP) Pulse Ox O2 Delivery O2 Flow Rate FiO2 03/11/25 21:28 131/71 03/11/25 21:00 98.0 71 18 98 98.0 03/11/25 20:00 Simple Mask* 6 50 Intake/Output Intake and Output 03/11/25 07:00 Intake Total 830 ml Output Total 0 ml Balance 830 ml Intake Oral 780 ml IV Total 50 ml Output Urine Total 0 ml General Appearance: Alert, Oriented X3, Cooperative, No acute distress HEENT: Atraumatic, PERRLA, EOMI, Mucous membr. moist/pink Lungs: Clear to auscultation, Normal air movement Cardiovascular: Regular rate, Normal S1, Normal S2, No murmurs, Gallops, Rubs Abdomen: Normal bowel sounds, Soft, No tenderness Extremities: No edema Neuro: Cranial nerves 3-12 NL Psych/Mental Status: Mental status NL Medications Current Medications Medications Dose Ordered Sig/Nereyda Route Start Time Stop Time Status Last Admin Dose Admin Sodium Chloride 10 ml Q8HR IV 02/26/25 22:00 03/11/25 21:28 10 ML Ondansetron HCl 4 mg Q4HP PRN IV 02/26/25 15:30 03/03/25 18:25 4 MG Docusate Sodium 100 mg BIDPRN PRN PO 02/26/25 15:30 02/27/25 17:40 100 MG Acetaminophen 650 mg Q6HP PRN PO 02/26/25 15:30 03/03/25 10:11 650 MG Morphine Sulfate 2 mg Q4HPRN PRN IV 02/26/25 15:30 Hold Nitroglycerin 0.4 mg Q5MINP PRN SL 02/26/25 15:30 03/03/25 10:31 0.4 MG Bupropion HCl 150 mg DAILY PO 02/27/25 10:00 03/11/25 08:42 150 MG Clonidine HCl 0.1 mg Q8HPRN PRN PO 02/26/25 15:30 03/11/25 13:47 0.1 MG Duloxetine HCl 30 mg DAILY PO 02/27/25 10:00 03/11/25 08:40 30 MG Meclizine HCl 25 mg BIDP PRN PO 02/26/25 15:30 02/27/25 17:36 25 MG Minoxidil 2.5 mg BID PO 02/26/25 22:00 03/11/25 21:27 2.5 MG Pantoprazole Sodium 40 mg DAILY PO 02/27/25 10:00 03/11/25 08:42 40 MG Trazodone HCl 50 mg HS PO 02/26/25 22:00 03/11/25 21:28 50 MG Atorvastatin Calcium 80 mg HS PO 02/26/25 22:00 03/11/25 21:27 80 MG Patient Own Medication 1 tab BID PO 02/26/25 22:00 Hold Donepezil HCl 5 mg DAILY PO 02/27/25 10:00 03/11/25 08:39 5 MG Ipratropium [place] 0.5 mg Q4HPRN PRN NEB 02/26/25 16:15 03/11/25 18:06 0.5 MG Albuterol 2.5 mg Q4HPRN PRN NEB 02/26/25 16:15 03/11/25 18:07 2.5 MG Diagnostic Test (Pha) 1 strip ACHS 02/26/25 22:00 03/11/25 21:28 1 STRIP Insulin Human Regular HS SC 02/26/25 22:00 03/08/25 23:10 2 UNITS Insulin Human Regular AC SC 02/27/25 07:00 03/11/25 16:21 3 UNITS Dextrose 50 ml UD PRN IV 02/26/25 17:15 03/09/25 01:33 50 ML Enteral Nutritional Formula 240 ml TIDWM PO 02/28/25 12:00 03/11/25 18:19 240 ML Lactulose 30 ml DAILYPRN PRN PO 03/01/25 10:00 03/09/25 14:37 30 ML Hydromorphone HCl 0.5 mg Q4HPRN PRN IV 03/03/25 11:45 03/11/25 19:03 0.5 MG Ceftazidime/ Dextrose 0.5 gm/ Sodium Chloride 50 ml @ 50 mls/hr DAILY IV 03/04/25 10:00 03/11/25 08:30 50 MLS/HR Nifedipine 60 mg BID PO 03/04/25 22:00 03/11/25 21:28 60 MG Hydralazine HCl 25 mg Q12HR PO 03/04/25 22:00 03/11/25 21:27 25 MG Furosemide 20 mg DAILY PO 03/06/25 10:00 03/11/25 08:41 20 MG Apixaban 2.5 mg BID PO 03/06/25 22:00 03/13/25 21:59 03/11/25 21:27 2.5 MG Doxycycline Hyclate 100 ml @ 50 mls/hr Q12H IV 03/09/25 02:45 03/11/25 16:07 50 MLS/HR Laboratory Results Laboratory Tests 03/09/25 08:59 03/10/25 04:01 Microbiology Microbiology Date/Time Source Procedure Growth Status 03/07/25 17:15 Pleural Fluid Gram Stain - Final Resulted 03/07/25 17:15 Pleural Fluid Body Fluid Culture - Preliminary Resulted 02/28/25 10:03 Sputum Gram Stain - Final Complete 02/28/25 10:03 Respiratory Culture - Final Enterobacter cloacae Complete 02/27/25 06:33 Nose MRSA Screen - Final Complete Labs and/or images reviewed: Labs reviewed by me Assessment/Plan Assessment/Plan Acute hypoxic respiratory failure, resolved Chronic respiratory failure on home O2 ESRD COPD DM2 HTN Mixed hyperlipidemia Elevated troponin probable 2nd to NSTEMI type 2 DVT of right upper extremities Superficial thrombus of left upper extremities. Pancreatic cystic mass. Anemia PLAN: Continue current management. Continue with Oxygen Continue HD per schedule Continue IV antibiotic. Appreciate accounting administrative assistant input Waiting for sputum culture. Stat trop is elevated. Will check trop q6h x 3 Stat EKG Appreciate [employer] Supervisor in put No further cardiac work up CTA of chest show no PE US show DVT of right UE with attach to lymph node. Start on eliquis yesterday. Stop heparin drip. Will monitor. concern because of history of GI bleed 1 year ago. Explains to her that he need to prevent more clot in his arm. but I can stop the eliquis if he wish. He need to understand the risk of DVT and possible PE if not on anticoagulation. The patient state that he want to be on anticoagulation, eliquis for now. Hb stable today. No melena, no BRBPR DW patient and regarding to the lymph node and cystic mass in the head of pancrea. They [facility] have [facility] for further work up on the mass in March 2025. Continue current management. Continue to wean patient until back to baseline then DC home. This medical document was created using an electronic medical record system with [employer] direct computerized dictation system. Although this document has been carefully reviewed, there may still be some phonetic and typographical errors. These areas are purely typographical due to imperfections of the software programs, and do not reflect any compromise in the patient's medical care. Plan discussed with: Patient, Spouse Date of Service: Mar 11, 2025 Billing Provider: GERMAINE ULLOA MD Common Visit Codes: [id number] INP/OBS CARE(HIGH) GERMAINE ULLOA MD Mar 11, 2025 22:20
[2025-03-12] VITALS (12 sets, daily range): BP systolic 108–146; BP diastolic 54–69; PULSE 66–79; RESP 15–18; TEMP 97.6–98.8; O2SAT 91–100
--- NOTE | 2025-03-12 09:24 | DVHPN2 ---
Subjective Complains of back pain He is on 6 L nasal cannula He uses 4-5 L at home Reviewed: Care Plan, H&P, Labs, Medications, Previous Orders, Radiology Changes from previous H/P or p: Changes Eyes: No Pain, No Vision change, No Conjunctivae inflammation, No Eyelid inflammation, No Other, No Redness ENT: No Ear pain, No Ear discharge, No Nose pain, No Nose discharge, No Nose congestion, No Mouth pain, No Mouth swelling, No Throat pain, No Throat swelling, No Other Cardiovascular: Chest Pain; No Palpitations, No Orthopnea, No Paroxysmal Noc. Dyspnea, No Edema, No Lt Headedness, No Other Respiratory: No Cough, No Dry; Shortness of breath, SOB with excertion; No Wheezing, No Hemoptysis, No Pleuritic Pain, No Sputum, No Other Gastrointestinal: No Nausea, No Vomiting, No Abdominal Pain, No Diarrhea, No Constipation, No Melena, No Hematochezia, No Other Genitourinary: No Dysuria, No Frequency, No Incontinence, No Hematuria, No Retention, No Other Musculoskeletal: No other, No neck pain, No shoulder pain, No arm pain, No back pain, No hand pain, No leg pain, No foot pain Skin: No Rash, No Lesions, No Jaundice, No Bruising, No Other Objective Vitals Vital Signs Date Time Temp Pulse Resp B/P (MAP) Pulse Ox O2 Delivery O2 Flow Rate FiO2 03/12/25 08:28 111/63 03/12/25 08:24 100 Room Air* 0 21 03/12/25 07:24 67 18 03/12/25 05:00 97.6 97.6 Intake/Output Intake and Output 03/12/25 07:00 Intake Total 990 ml Output Total 0 ml Balance 990 ml Intake Oral 740 ml IV Total 250 ml Output Urine Total 0 ml General Appearance: Alert, Oriented X3, Cooperative, No acute distress HEENT: Atraumatic, PERRLA, EOMI, Mucous membr. moist/pink Lungs: Clear to auscultation, Normal air movement Cardiovascular: Regular rate, Normal S1, Normal S2, No murmurs, Gallops, Rubs Abdomen: Normal bowel sounds, Soft, No tenderness Extremities: No edema Neuro: Cranial nerves 3-12 NL Psych/Mental Status: Mental status NL Medications Current Medications Medications Dose Ordered Sig/Nereyda Route Start Time Stop Time Status Last Admin Dose Admin Sodium Chloride 10 ml Q8HR IV 02/26/25 22:00 03/12/25 05:49 10 ML Ondansetron HCl 4 mg Q4HP PRN IV 02/26/25 15:30 03/03/25 18:25 4 MG Docusate Sodium 100 mg BIDPRN PRN PO 02/26/25 15:30 02/27/25 17:40 100 MG Acetaminophen 650 mg Q6HP PRN PO 02/26/25 15:30 03/03/25 10:11 650 MG Morphine Sulfate 2 mg Q4HPRN PRN IV 02/26/25 15:30 Hold Nitroglycerin 0.4 mg Q5MINP PRN SL 02/26/25 15:30 03/03/25 10:31 0.4 MG Bupropion HCl 150 mg DAILY PO 02/27/25 10:00 03/12/25 08:27 150 MG Clonidine HCl 0.1 mg Q8HPRN PRN PO 02/26/25 15:30 03/11/25 13:47 0.1 MG Duloxetine HCl 30 mg DAILY PO 02/27/25 10:00 03/12/25 08:27 30 MG Meclizine HCl 25 mg BIDP PRN PO 02/26/25 15:30 02/27/25 17:36 25 MG Minoxidil 2.5 mg BID PO 02/26/25 22:00 03/12/25 08:28 2.5 MG Pantoprazole Sodium 40 mg DAILY PO 02/27/25 10:00 03/12/25 08:27 40 MG Trazodone HCl 50 mg HS PO 02/26/25 22:00 03/11/25 21:28 50 MG Atorvastatin Calcium 80 mg HS PO 02/26/25 22:00 03/11/25 21:27 80 MG Patient Own Medication 1 tab BID PO 02/26/25 22:00 Hold Donepezil HCl 5 mg DAILY PO 02/27/25 10:00 03/12/25 08:27 5 MG Ipratropium [place] 0.5 mg Q4HPRN PRN NEB 02/26/25 16:15 03/11/25 18:06 0.5 MG Albuterol 2.5 mg Q4HPRN PRN NEB 02/26/25 16:15 03/11/25 18:07 2.5 MG Diagnostic Test (Pha) 1 strip ACHS 02/26/25 22:00 03/12/25 05:50 1 STRIP Insulin Human Regular HS SC 02/26/25 22:00 03/08/25 23:10 2 UNITS Insulin Human Regular AC SC 02/27/25 07:00 03/11/25 16:21 3 UNITS Dextrose 50 ml UD PRN IV 02/26/25 17:15 03/09/25 01:33 50 ML Enteral Nutritional Formula 240 ml TIDWM PO 02/28/25 12:00 03/12/25 08:18 240 ML Lactulose 30 ml DAILYPRN PRN PO 03/01/25 10:00 03/09/25 14:37 30 ML Hydromorphone HCl 0.5 mg Q4HPRN PRN IV 03/03/25 11:45 03/12/25 06:54 0.5 MG Ceftazidime/ Dextrose 0.5 gm/ Sodium Chloride 50 ml @ 50 mls/hr DAILY IV 03/04/25 10:00 03/12/25 08:19 50 MLS/HR Nifedipine 60 mg BID PO 03/04/25 22:00 03/11/25 21:28 60 MG Hydralazine HCl 25 mg Q12HR PO 03/04/25 22:00 03/11/25 21:27 25 MG Furosemide 20 mg DAILY PO 03/06/25 10:00 03/12/25 08:27 20 MG Apixaban 2.5 mg BID PO 03/06/25 22:00 03/13/25 21:59 03/12/25 08:26 2.5 MG Doxycycline Hyclate 100 ml @ 50 mls/hr Q12H IV 03/09/25 02:45 03/12/25 02:49 50 MLS/HR Laboratory Results Laboratory Tests 03/09/25 08:59 03/10/25 04:01 Microbiology Microbiology Date/Time Source Procedure Growth Status 03/07/25 17:15 Pleural Fluid Gram Stain - Final Resulted 03/07/25 17:15 Pleural Fluid Body Fluid Culture - Preliminary Resulted 02/28/25 10:03 Sputum Gram Stain - Final Complete 02/28/25 10:03 Respiratory Culture - Final Enterobacter cloacae Complete 02/27/25 06:33 Nose MRSA Screen - Final Complete Assessment/Plan Assessment/Plan Acute hypoxic respiratory failure, resolved Chronic respiratory failure on home O2 ESRD COPD DM2 HTN Mixed hyperlipidemia Elevated troponin NSTEMI type 2 DVT of the right arm Superficial phlebitis of the left arm Generalized weakness Hypoxia PLAN: Continue Eliquis Hemodialysis today per Nephrology Physical therapy Titrate oxygen down as tolerated IV antibiotics ceftazidime and doxycycline Sputum Culture Enterobacter Discharge planning once his oxygen level is down to 4-5 L consistently Switch IV opiates to p.o. He says [employer] did not work for him at home Plan discussed with: Patient Date of Service: Mar 12, 2025 Billing Provider: PETER LAMAR MD Common Visit Codes: NOT BILLABLE PETER LAMAR MD Mar 12, 2025 09:24
--- NOTE | 2025-03-12 13:19 | DVHPN2 ---
Progress Note - Dictate Date Seen: Mar 12, 2025 Medical Necessity Reason Pt with a Central, PICC or Fol: No vital signs Vital Sign Date Time Temp Pulse Resp B/P (MAP) Pulse Ox O2 Delivery O2 Flow Rate FiO2 03/12/25 09:00 98.5 69 16 146/69 (94) 100 98.5 03/12/25 08:24 Room Air* 0 21 Total Intake and Output 03/11/25 03/11/25 03/12/25 15:00 23:00 07:00 Intake Total 50 ml 600 ml 340 ml Output Total 0 ml 0 ml Balance 50 ml 600 ml 340 ml medications Current Medications Medications Dose Ordered Sig/Nereyda Route Start Time Stop Time Status Last Admin Dose Admin Sodium Chloride 10 ml Q8HR IV 02/26/25 22:00 03/12/25 05:49 10 ML Ondansetron HCl 4 mg Q4HP PRN IV 02/26/25 15:30 03/03/25 18:25 4 MG Docusate Sodium 100 mg BIDPRN PRN PO 02/26/25 15:30 02/27/25 17:40 100 MG Acetaminophen 650 mg Q6HP PRN PO 02/26/25 15:30 03/03/25 10:11 650 MG Morphine Sulfate 2 mg Q4HPRN PRN IV 02/26/25 15:30 Hold Nitroglycerin 0.4 mg Q5MINP PRN SL 02/26/25 15:30 03/03/25 10:31 0.4 MG Bupropion HCl 150 mg DAILY PO 02/27/25 10:00 03/12/25 08:27 150 MG Clonidine HCl 0.1 mg Q8HPRN PRN PO 02/26/25 15:30 03/11/25 13:47 0.1 MG Duloxetine HCl 30 mg DAILY PO 02/27/25 10:00 03/12/25 08:27 30 MG Meclizine HCl 25 mg BIDP PRN PO 02/26/25 15:30 02/27/25 17:36 25 MG Minoxidil 2.5 mg BID PO 02/26/25 22:00 03/12/25 08:28 2.5 MG Pantoprazole Sodium 40 mg DAILY PO 02/27/25 10:00 03/12/25 08:27 40 MG Trazodone HCl 50 mg HS PO 02/26/25 22:00 03/11/25 21:28 50 MG Atorvastatin Calcium 80 mg HS PO 02/26/25 22:00 03/11/25 21:27 80 MG Patient Own Medication 1 tab BID PO 02/26/25 22:00 Hold Donepezil HCl 5 mg DAILY PO 02/27/25 10:00 03/12/25 08:27 5 MG Ipratropium [place] 0.5 mg Q4HPRN PRN NEB 02/26/25 16:15 03/11/25 18:06 0.5 MG Albuterol 2.5 mg Q4HPRN PRN NEB 02/26/25 16:15 03/11/25 18:07 2.5 MG Diagnostic Test (Pha) 1 strip ACHS 02/26/25 22:00 03/12/25 05:50 1 STRIP Insulin Human Regular HS SC 02/26/25 22:00 03/08/25 23:10 2 UNITS Insulin Human Regular AC SC 02/27/25 07:00 03/11/25 16:21 3 UNITS Dextrose 50 ml UD PRN IV 02/26/25 17:15 03/09/25 01:33 50 ML Enteral Nutritional Formula 240 ml TIDWM PO 02/28/25 12:00 03/12/25 08:18 240 ML Lactulose 30 ml DAILYPRN PRN PO 03/01/25 10:00 03/09/25 14:37 30 ML Hydromorphone HCl 0.5 mg Q4HPRN PRN IV 03/03/25 11:45 03/12/25 06:54 0.5 MG Ceftazidime/ Dextrose 0.5 gm/ Sodium Chloride 50 ml @ 50 mls/hr DAILY IV 03/04/25 10:00 03/12/25 08:19 50 MLS/HR Nifedipine 60 mg BID PO 03/04/25 22:00 03/11/25 21:28 60 MG Hydralazine HCl 25 mg Q12HR PO 03/04/25 22:00 03/11/25 21:27 25 MG Furosemide 20 mg DAILY PO 03/06/25 10:00 03/12/25 08:27 20 MG Apixaban 2.5 mg BID PO 03/06/25 22:00 03/13/25 21:59 03/12/25 08:26 2.5 MG Doxycycline Hyclate 100 ml @ 50 mls/hr Q12H IV 03/09/25 02:45 03/12/25 02:49 50 MLS/HR laboratory and microbiology Laboratory Tests 03/10/25 04:01 03/09/25 08:59 Test 03/09/25 08:59 Range/Units Serum Glucose 87 74-106 mg/dL Assessment/Plan Acute on chronic hypoxic respiratory failure Elevated troponin Pulmonary edema Pulmonary vascular congestion End-stage renal disease on hemodialysis Can not rule out underlying pneumonia Events: Low oxygen requirements On 5 LPM NC No distress S/p HD Labs and imaging reviewed Plan: Supplemental oxygen Titrate to keep O2 saturation above 92%. Complete antibiotic course. Sputum cultures grew moderate yeast, few GPC and few gram positive rods. MRSA negative Bronchodilators Monitor renal function Hemodialysis per nephrology Monitor electrolytes Supplement as necessary. Monitor ins and outs Arrange for stationary concentrator at home that goes up to 10 L/min Social work Services consultation placed Disposition per primary GI prophylaxis-Protonix Dietary Evaluation Review Comments: Encourage and monitor PO intake to meet his needs Reinforce dietary sodium restrition Monitor cholesterol levels Expected Outcomes/Goals: No wt loss, fluid/electolyte in balance Plan discussed with: Patient JASON GUSTAFSON MD Mar 12, 2025 13:19
[2025-03-13] VITALS (7 sets, daily range): BP systolic 122–148; BP diastolic 57–63; PULSE 62–68; RESP 17–18; TEMP 97.7–98.6; O2SAT 97–100
[2025-03-13 06:05] LABS: Hemoglobin 7.7 g/dL (13.5-17.5)
[2025-03-13 06:06] LABS: Hematocrit 23.2 % (41.0-53.0); Mean Corpuscular Hemoglobin 31.7 pg (28.0-32.0); Mean Corpuscular Volume 95.0 fL (80.0-100.0); Nucleated Red Blood Cells % 0.0 %
[2025-03-13 06:31] LABS: Alanine Aminotransferase 16 U/L (7-40); Albumin 3.7 g/dL (3.2-4.8); Anion Gap 9 (5-15); BUN/Creatinine Ratio 6.8 (10.0-20.0); Calcium 9.1 mg/dL (8.7-10.4); Carbon Dioxide 30 mmol/L (20-31); Chloride 99 mmol/L (98-107); Glucose 83 mg/dL (74-106); Magnesium 2.1 mg/dL (1.6-2.6); Potassium 4.4 mmol/L (3.5-5.1); Sodium 138 mmol/L (136-145); Total Protein 7.4 g/dL (5.7-8.2)
[2025-03-13 06:34] LABS: Bilirubin, Total 0.2 mg/dL (0.2-1.0); Blood Urea Nitrogen 28 mg/dL (9-23)
[2025-03-13 06:57] LABS: Alkaline Phosphatase 75 U/L (46-116)
[2025-03-13] MEDS ORDERED: APIX2.5T PO (13:07)
--- NOTE | 2025-03-13 13:09 | DVHDS2 ---
Discharge Summary Date of Admission Feb 26, 2025 at 15:29 Date of Discharge: Feb 27, 2025 Labs/Diagnostic Data: Laboratory Results Test 03/13/25 12:04 03/13/25 05:35 03/08/25 14:52 03/05/25 11:57 POC Glucose 173 mg/dl (70-106) White Blood Count 5.5 10^3/uL (4.4-10.8) Red Blood Count 2.45 10^6/uL (4.5-5.90) Hemoglobin 7.7 g/dL (13.5-17.5) Hematocrit 23.2 % (41.0-53.0) Mean Corpuscular Volume 95.0 fL (80.0-100.0) Mean Corpuscular Hemoglobin 31.7 pg (28.0-32.0) Mean Corpuscular Hemoglobin Concent 33.3 g/dL (32.0-36.0) Red Cell Distribution Width 14.5 % (11.8-14.3) Platelet Count 224 10^3/uL (140-450) Mean Platelet Volume 7.9 fL (6.9-10.8) Neutrophils (%) (Auto) 59.3 % (37.0-80.0) Lymphocytes (%) (Auto) 18.7 % (10.0-50.0) Monocytes (%) (Auto) 15.5 % (0.0-12.0) Eosinophils (%) (Auto) 5.8 % (0.0-7.0) Basophils (%) (Auto) 0.7 % (0.0-2.0) Neutrophils # (Auto) 3.3 10 ^3/uL (1.6-8.6) Lymphocytes # (Auto) 1.0 10 ^3/uL (0.4-5.4) Monocytes # (Auto) 0.8 10 ^3/uL (0-1.3) Eosinophils # (Auto) 0.3 10 ^3/uL (0-0.8) Basophils # (Auto) 0 10 ^3/uL (0-0.2) Nucleated Red Blood Cells 0.0 % Sodium Level 138 mmol/L (136-145) Potassium Level 4.4 mmol/L (3.5-5.1) Chloride Level 99 mmol/L (98-107) Carbon Dioxide Level 30 mmol/L (20-31) Anion Gap 9 (5-15) Blood Urea Nitrogen 28 mg/dL (9-23) Creatinine 4.13 mg/dL (0.700-1.30) Glomerular Filtration Rate Calc 14 mL/min (>90) BUN/Creatinine Ratio 6.8 (10.0-20.0) Serum Glucose 83 mg/dL (74-106) Calcium Level 9.1 mg/dL (8.7-10.4) Magnesium Level 2.1 mg/dL (1.6-2.6) Total Bilirubin 0.2 mg/dL (0.2-1.0) Aspartate Amino Transferase (AST) 30 U/L (13-40) Alanine Aminotransferase (ALT) 16 U/L (7-40) Alkaline Phosphatase 75 U/L (46-116) Total Protein 7.4 g/dL (5.7-8.2) Albumin 3.7 g/dL (3.2-4.8) Prothrombin Time 11.6 sec (9.3-11.8) Prothrombin Time INR 1.11 (0.9-1.15) Activated Partial Thromboplast Time 32.1 SEC (24.5-34.5) D-Dimer, Quantitative 0.96 mg/L FEU (0.0-0.49) Test 03/03/25 15:11 03/02/25 15:32 03/01/25 17:11 02/28/25 13:41 Troponin I High Sensitivity 90 ng/L (</=54) Blood Gas Specimen Type Arterial Blood Gas Sample Site Left radial Blood Gas Patient Temperature 37.0 Arterial Blood Date Drawn [id number] Arterial Blood pH 7.515 (7.350-7.450) Arterial Blood Partial Pressure CO2 39.9 mmHg (35.0-48.0) Arterial Blood Partial Pressure O2 < 36.5 mmHg (83.0-108.0) Arterial Blood HCO3 31.5 mmol/L (21.0-28.0) Arterial Blood Oxygen Saturation 70.9 % (94.0-98.0) Arterial Blood Base Excess 7.9 mmol/L (-2.0-3.0) Arterial Blood Oxyhemoglobin 69.5 % (94.0-98.0) Arterial Blood Carboxyhemoglobin 1.9 % (0.5-1.5) Arterial Blood Methemoglobin 0.1 % (0.0-1.5) Zachery Test Modified Blood Gas Total Hemoglobin 8.60 g/dL (13.5-17.5) Blood Gas Modality Room air FiO2 % 21.0 Blood Gas Critical Value Read Back Yes Blood Gas Notified Whom lwarence Adkins md Blood Gas Notified Time [id number] Blood Gas Notified By [employer] Supervisor [place] Hepatitis A IgM Antibody Negative Hepatitis B Surface Antigen Negative (Negative) Hepatitis B Core IgM Antibody Negative (Negative) Hepatitis C Antibody Positive (Negative) Blood Gas Liter Flow 6.00 Test 02/27/25 04:40 02/26/25 16:50 02/26/25 11:40 Influenza Type A Antigen Negative (Negative) Influenza Type B Antigen Negative (Negative) SARS-CoV-2 Antigen (Rapid) Negative (NEGATIVE) B-Type Natriuretic Peptide 634.40 pg/mL (0-100) Other Laboratory Tests 03/13/25 05:35 Brief Hx & Hospital Course: Final diagnoses: Acute hypoxic respiratory failure, resolved Chronic respiratory failure on home O2 ESRD COPD DM2 HTN Mixed hyperlipidemia Elevated troponin NSTEMI type 2 DVT of the right arm Superficial phlebitis of the left arm Generalized weakness Hypoxia He was dialyzed to improve his pulmonary edema which also improved his hypoxia He uses oxygen at home at 5 L and now he is on 3 L His edema is much better He was found to have DVT of the right arm and was started on Eliquis His mental status improved significantly Today he is alert and oriented in no apparent distress His ex- who is the main caregiver for him at home is also at the bedside today, we explained all the findings and they understand the discharge planning He will go on Eliquis 2.5 mg twice a day Resume other home medications Continue with hemodialysis as scheduled tomorrow Condition at Discharge: Stable Final Diagnosis/Problems List Acute hypoxic respiratory failure, resolved Chronic respiratory failure on home O2 ESRD COPD DM2 HTN Mixed hyperlipidemia Elevated troponin NSTEMI type 2 DVT of the right arm Superficial phlebitis of the left arm Generalized weakness Hypoxia Discharge Disposition: Home SNF Discharge Will this Physician continue t: No Discharge Instruct/Medications Diet: Consistent carbohydrate, Cardiac 2g Na,low cholest, Renal Activity: Light activity Follow Up/Referral: Hemodialysis as scheduled PCP as soon as possible Medications: Same home medication Scheduled Aspirin (Aspirin Low Dose), 1 TAB PO DAILY, (Reported) Atorvastatin Calcium (Atorvastatin Calcium), 80 MG PO QPM, (Reported) Bupropion HCl (Bupropion Hydrochloride), 150 MG PO DAILY, (Reported) Calcium Carbonate (Calcium), 600 MG PO BID, (Reported) Cholecalciferol (Vitamin D3), 5,000 UNIT OR QWEEKLY, (Reported) Donepezil Hydrochloride (Donepezil Hcl), 1 TAB PO DAILY, (Reported) Duloxetine HCl (Duloxetine HCl), 1 CAP PO DAILY, (Reported) Hydralazine Hcl (Hydralazine Hcl), 1 TAB PO BID, (Reported) Ipratropium [place] (Ipratropium [place]), NEB BID, (Reported) Lactulose (Lactulose), 10 GM PO BID, (Reported) Minoxidil (Loniten), 1 TAB PO BID, (Reported) Nifedipine (Nifedipine Er), 1 TAB PO BID, (Reported) Pantoprazole Sodium Sesquihydr (Protonix), 40 MG PO DAILY, (Reported) Revefenacin (Yupelri), 8 MCG IN DAILY, (Reported) Tizanidine Hydrochloride (Zanaflex), 8 MG PO HS, (Reported) Trazodone HCl (Trazodone Hydrochloride), 50 MG PO HS, (Reported) Scheduled PRN Clonidine Hydrochloride (Clonidine Hcl), 0.1 MG PO for SBP>160, (Reported) Hydrocodone-Acetaminophen (Hydrocodone Bitartrate/AC 10-325 mg), 1 TAB PO BID PRN Meclizine HCl (Meclizine 25), 25 MG PO for DIZZINESS, (Reported) Nitroglycerin (Nitrostat), 1 TAB SL Q5MIN PRN for CHEST PAIN, (Reported) Miscellaneous Medications Insulin Isophane & Reg (Human) (Humulin 70/30 (70-30) 100 Unit/ml), (Reported) Patiromer Sorbitex Calcium (Veltassa), 1 PKT PO, (Reported) Thiamine Hcl (Vitamin B-1), 50 MG PO, (Reported) Discharge Statement: "Patient was advised to return to the ER or call 911 if any headaches, dizziness, shortness of breath, chest pain, abdominal pain, bleeding, fevers, or worsening of medical condition. Patient was counseled about treatment plan, medications, possible side effects, patientverbalized understanding. All questions were answered to the best of my ability. This discharge took greater then 30 minutes in planning, reviewing documentation, counseling the patient, and discussing with other team members." ASSESSMENT ASSESSMENT Assessment Acute hypoxic respiratory failure due to lack of oxygen COPD End-stage renal disease on hemodialysis Chronic respiratory failure on home O2 Date of Service: Mar 13, 2025 Billing Provider: PETRE LAMAR MD Common Visit Codes: NOT BILLABLE PETER LAMAR MD Mar 13, 2025 13:09
--- NOTE | 2025-03-13 14:48 | DVHPN2 ---
Progress Note - Dictate Date Seen: Mar 13, 2025 Medical Necessity Reason Pt with a Central, PICC or Fol: No vital signs Vital Sign Date Time Temp Pulse Resp B/P (MAP) Pulse Ox O2 Delivery O2 Flow Rate FiO2 03/13/25 14:31 97.8 68 18 97 03/13/25 13:00 136/58 (84) 03/13/25 08:00 Nasal Cannula* 3 32 Total Intake and Output 03/12/25 03/12/25 03/13/25 15:00 23:00 07:00 Intake Total 50 ml 1300 ml 500 ml Output Total 300 ml Balance 50 ml 1300 ml 200 ml medications Current Medications Medications Dose Ordered Sig/Nereyda Route Start Time Stop Time Status Last Admin Dose Admin Sodium Chloride 10 ml Q8HR IV 02/26/25 22:00 03/13/25 05:42 10 ML Ondansetron HCl 4 mg Q4HP PRN IV 02/26/25 15:30 03/03/25 18:25 4 MG Docusate Sodium 100 mg BIDPRN PRN PO 02/26/25 15:30 02/27/25 17:40 100 MG Acetaminophen 650 mg Q6HP PRN PO 02/26/25 15:30 03/13/25 03:31 650 MG Morphine Sulfate 2 mg Q4HPRN PRN IV 02/26/25 15:30 Hold Nitroglycerin 0.4 mg Q5MINP PRN SL 02/26/25 15:30 03/03/25 10:31 0.4 MG Bupropion HCl 150 mg DAILY PO 02/27/25 10:00 03/13/25 08:55 150 MG Clonidine HCl 0.1 mg Q8HPRN PRN PO 02/26/25 15:30 03/11/25 13:47 0.1 MG Duloxetine HCl 30 mg DAILY PO 02/27/25 10:00 03/13/25 08:56 30 MG Meclizine HCl 25 mg BIDP PRN PO 02/26/25 15:30 02/27/25 17:36 25 MG Minoxidil 2.5 mg BID PO 02/26/25 22:00 03/13/25 08:57 2.5 MG Pantoprazole Sodium 40 mg DAILY PO 02/27/25 10:00 03/13/25 08:57 40 MG Trazodone HCl 50 mg HS PO 02/26/25 22:00 03/12/25 21:52 50 MG Atorvastatin Calcium 80 mg HS PO 02/26/25 22:00 03/12/25 21:50 80 MG Patient Own Medication 1 tab BID PO 02/26/25 22:00 Hold Donepezil HCl 5 mg DAILY PO 02/27/25 10:00 03/13/25 08:55 5 MG Ipratropium Cardinal 0.5 mg Q4HPRN PRN NEB 02/26/25 16:15 03/11/25 18:06 0.5 MG Albuterol 2.5 mg Q4HPRN PRN NEB 02/26/25 16:15 03/11/25 18:07 2.5 MG Diagnostic Test (Pha) 1 strip ACHS 02/26/25 22:00 03/13/25 11:30 1 STRIP Insulin Human Regular HS SC 02/26/25 22:00 03/12/25 21:48 3 UNITS Insulin Human Regular AC SC 02/27/25 07:00 03/13/25 12:12 3 UNITS Dextrose 50 ml UD PRN IV 02/26/25 17:15 03/09/25 01:33 50 ML Enteral Nutritional Formula 240 ml TIDWM PO 02/28/25 12:00 03/13/25 12:12 240 ML Lactulose 30 ml DAILYPRN PRN PO 03/01/25 10:00 03/09/25 14:37 30 ML Hydromorphone HCl 0.5 mg Q4HPRN PRN IV 03/03/25 11:45 03/13/25 09:05 0.5 MG Ceftazidime/ Dextrose 0.5 gm/ Sodium Chloride 50 ml @ 50 mls/hr DAILY IV 03/04/25 10:00 03/13/25 08:45 50 MLS/HR Nifedipine 60 mg BID PO 03/04/25 22:00 03/13/25 08:56 60 MG Hydralazine HCl 25 mg Q12HR PO 03/04/25 22:00 03/13/25 08:55 25 MG Furosemide 20 mg DAILY PO 03/06/25 10:00 03/13/25 08:54 20 MG Apixaban 2.5 mg BID PO 03/06/25 22:00 03/13/25 21:59 03/13/25 08:57 2.5 MG Doxycycline Hyclate 100 ml @ 50 mls/hr Q12H IV 03/09/25 02:45 03/13/25 03:04 50 MLS/HR laboratory and microbiology Laboratory Tests 03/13/25 05:35 Test 03/13/25 05:35 Range/Units Serum Glucose 83 74-106 mg/dL Assessment/Plan Acute on chronic hypoxic respiratory failure Elevated troponin Pulmonary edema Pulmonary vascular congestion End-stage renal disease on hemodialysis Can not rule out underlying pneumonia Events: Low oxygen requirements On 3 LPM NC No distress S/p HD Labs and imaging reviewed Plan: Supplemental oxygen Titrate to keep O2 saturation above 92%. Complete antibiotic course. Sputum cultures grew moderate yeast, few GPC and few gram positive rods. MRSA negative Bronchodilators Monitor renal function Hemodialysis per nephrology Monitor electrolytes Supplement as necessary. Monitor ins and outs Arrange for stationary concentrator at home that goes up to 10 L/min Social work Services consultation placed Okay to discharge from pulmonary standpoint GI prophylaxis-Protonix Dietary Evaluation Review Comments: Encourage and monitor PO intake to meet his needs Reinforce dietary sodium restrition Monitor cholesterol levels Expected Outcomes/Goals: No wt loss, fluid/electolyte in balance Plan discussed with: Patient JASON GUSTAFSON MD Mar 13, 2025 14:47
--- NOTE | 2025-03-13 20:44 | DVHPN2 ---
Progress Note - Dictate Date Seen: Mar 12, 2025 Medical Necessity Reason Pt with a Central, PICC or Fol: No Subjective Patient was seen and evaluated in follow up. No acute events overnight.Patient reports shortness of breath is improving. Now on 5L NC. vital signs Vital Sign Date Time Temp Pulse Resp B/P (MAP) Pulse Ox O2 Delivery O2 Flow Rate FiO2 03/13/25 14:31 97.8 68 18 97 03/13/25 13:00 136/58 (84) 03/13/25 10:00 Mask 3.0 03/13/25 10:00 32 Total Intake and Output 03/12/25 03/12/25 03/13/25 15:00 23:00 07:00 Intake Total 50 ml 1300 ml 500 ml Output Total 300 ml Balance 50 ml 1300 ml 200 ml objective Vitals and nursing notes reviewed. General Appearance: In no acute distress. HEENT: Atraumatic, PERRLA, Mucous membr. moist/pink Respiratory: Diminished breath sounds present. No wheezing. Cardiovascular: Regular rate, Normal S1, Normal S2 Abdominal: Normal bowel sounds, Soft, No tenderness Extremities: No clubbing, No cyanosis, No edema, Normal pulses, Other (right arm fistula) Skin: No rashes, No breakdown, No significant lesion Neuro: Alert, Oriented X3, Normal speech Psych/Mental Status: Mental status NL, Mood NL laboratory and microbiology Laboratory Tests 03/13/25 05:35 Test 03/13/25 05:35 Range/Units Serum Glucose 83 74-106 mg/dL Problem List Acute hypoxic respiratory failure Chest pain Elevated troponin ESRD on HD Assessment/Plan Agree with current supportive medical care. Cardiology and Pulmonary Medicine following. S/p thoracentesis 03/07. Supplemental oxygen to keep sats >92%. On 5L NC. MedNeb breathing treatments. No dialysis today. Continue Lasix 20 mg PO daily. IV antibiotics. Renal diet. Continued on Eliquis. Additional plan as per the hospital course. Dietary Evaluation Review Comments: Encourage and monitor PO intake to meet his needs Reinforce dietary sodium restrition Monitor cholesterol levels Expected Outcomes/Goals: No wt loss, fluid/electolyte in balance Plan discussed with: Patient, Other (RN) HARJINDER RUTHERFORD DO Mar 13, 2025 20:43
--- NOTE | 2025-03-13 20:48 | DVHPN2 ---
Progress Note - Dictate Date Seen: Mar 13, 2025 Medical Necessity Reason Pt with a Central, PICC or Fol: No Subjective Patient was seen and evaluated in follow up. No acute events overnight. Patient denies any complaints. Oxygen requirements improved, now on 3L NC. Planned for discharge home today. vital signs Vital Sign Date Time Temp Pulse Resp B/P (MAP) Pulse Ox O2 Delivery O2 Flow Rate FiO2 03/13/25 14:31 97.8 68 18 97 03/13/25 13:00 136/58 (84) 03/13/25 10:00 Mask 3.0 03/13/25 10:00 32 Total Intake and Output 03/12/25 03/12/25 03/13/25 15:00 23:00 07:00 Intake Total 50 ml 1300 ml 500 ml Output Total 300 ml Balance 50 ml 1300 ml 200 ml objective Vitals and nursing notes reviewed. General Appearance: In no acute distress. HEENT: Atraumatic, PERRLA, Mucous membr. moist/pink Respiratory: Clear breath sounds present. No wheezing. Cardiovascular: Regular rate, Normal S1, Normal S2 Abdominal: Normal bowel sounds, Soft, No tenderness Extremities: No clubbing, No cyanosis, No edema, Normal pulses, Other (right arm fistula) Skin: No rashes, No breakdown, No significant lesion Neuro: Alert, Oriented X3, Normal speech Psych/Mental Status: Mental status NL, Mood NL laboratory and microbiology Laboratory Tests 03/13/25 05:35 Test 03/13/25 05:35 Range/Units Serum Glucose 83 74-106 mg/dL Problem List Acute hypoxic respiratory failure Chest pain Elevated troponin ESRD on HD Assessment/Plan DC planning in progress. Continuing Eliquis 2.5 mg twice daily for DVT of the right arm. Resume outpatient hemodialysis as scheduled 03/14/25 with [facility]. Dietary Evaluation Review Comments: Encourage and monitor PO intake to meet his needs Reinforce dietary sodium restrition Monitor cholesterol levels Expected Outcomes/Goals: No wt loss, fluid/electolyte in balance Plan discussed with: Patient, Other (RN) HARJINDER RUTHERFORD DO Mar 13, 2025 20:48
--- NOTE | 2025-03-14 12:27 | DVHPN2 ---
Progress Note - Dictate Date Seen: Mar 13, 2025 Medical Necessity Reason Pt with a Central, PICC or Fol: No vital signs Vital Sign Date Time Temp Pulse Resp B/P (MAP) Pulse Ox O2 Delivery O2 Flow Rate FiO2 03/13/25 14:31 97.8 68 18 97 03/13/25 13:00 136/58 (84) 03/13/25 10:00 Mask 3.0 03/13/25 10:00 32 Total Intake and Output 03/13/25 03/13/25 03/14/25 15:00 23:00 07:00 Intake Total 50 ml Balance 50 ml laboratory and microbiology Laboratory Tests 03/13/25 05:35 Test 03/13/25 05:35 Range/Units Serum Glucose 83 74-106 mg/dL Assessment/Plan Assessment/Plan This is an 79-year old male known outside to our practice who initially presented 02/26/2025 with reported shortness of breath and chest discomfort. Patient himself does have underlying history of chronic respiratory failure on home oxygen therapy and reports indicate on the day of initial presentation, patient had went for routine testing outside within our practice and had been reported to have oxygen saturations within the 50% range despite use of his portable oxygen concentrator which EMS had been called and patient was later transported to present facility for further evaluation and management. Throughout course of present admission patient had been admitted with acute on chronic hypoxic respiratory failure which patient does have known history of COPD and has been managed by pulmonology services throughout present hospital course. Chest imaging had revealed evidence for pulmonary vascular congestion which patient does have underlying history of chronic diastolic heart failure with last known LVEF of 60% as per Echocardiogram findings 11/28/2024. Right ventricular systolic pressure at that time was noted to be 55mmHg consistent with underlying pulmonary hypertension which it is further noted patient himself does have history of ESRD on hemodialysis for which fluid volume is managed by Nephrology services via hemodialysis. Patient does have underlying anemia. Serial high sensitive troponins have revealed flat/mild elevation with a peak level of 112 that had subsequently revealed gradual downtrend. 12-lead electrocardiogram had revealed sinus rhythm, first degree AVB, right bundle branch block, prolonged QTC, however with no evidence for acute ischemic changes. Of note, patient does have underlying history of coronary artery disease and is status post previous PCI with PERLA x 1 involving ostial LAD 08/04/2023. Cardiac catheterization at that time had revealed presence of a patent stent involving mLAD as well as type II pulmonary hypertension. Patient does have known history of previously provoked DVT involving subclavian/neck and had been on low-dose Xarelto as outpatient however upon review of outside records, AC therapy had recently been discontinued and patient has been kept on low-dose Aspirin given previous PCI. Of note, throughout course of present admission, it is notable that patient has been observed to have transient hypertensive events consistent with hypertensive urgency which could have attributed to patients intermittent chest pains. Despite the above, at present time of consultation, patient himself reports chest pain has now subsided. Denies any palpitations, dizziness, syncope, or any further cardiac related symptoms. Cardiology services were involved late within the admission (on ) by primary team request for cardiac aspects of care. Past medical history includes end-stage renal disease on hemodialysis, old history of CVA (2018), poor functional capacity, coronary artery disease and status post PCI (last stent in July 2023, ostial LAD), COPD, obstructive sleep apnea, diabetes mellitus, hypertension, anemia (history of repeated transfusions), D-CHF, SVT, pulmonary hypertension (considered type 2), history of pancytopenia (resolved later), history of DVT in upper extremity, dementia, old history of underlying RBBB, peripheral artery disease, right external iliac artery aneurysm, history of CDT colitis, repeated/significant GI bleedings, 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 Past medical history also includes DVT in the right upper extremity, history of septic shock, history of pneumonia, sick sinus syndrome and status post pacemaker (Micra/Medtronic) implantation. Echocardiogram of November 28, 2024 revealed Left ventricle: Mild concentric left ventricular hypertrophy was seen. LVEF was around 60%. There was no gross wall motion abnormality. Pseudo normal LV diastolic dysfunction was observed. Right ventricle: Right ventricle was dilated with preserved systolic function. Both atria were dilated. Aortic valve: Aortic sclerosis with no stenosis was observed. Mild aortic insufficiencywas seen. There was mild mitral regurgitation. There was [id number] tricuspid regurgitation. Pulmonary valve was not well visualized. Right ventricular systolic pressure was assessed at 55 mm Hg. There was no pericardial effusion. Echocardiogram of 2024 revealed: EF of 60%, pseudonormal LV filling, dilated RV, VIVIANA, mild AI, Mild MR, mild to moderate TR and RVSP of 55 mmHg. Echocardiogram of September 11, 2024 (performed in the office) reported ejection fraction of 55-60%, pseudo-normal left ventricular diastolic dysfunction, mild biatrial enlargement, mild mitral regurgitation, tricuspid regurgitation, atrial insufficiency, mild mitral annular calcification and right ventricular systolic pressure of less than 35 mm Hg Echocardiogram of June 05, 2024 reported mild concentric left ventricular hypertrophy, ejection fraction of 45-50%, mild biatrial enlargement, mild aortic insufficiency/tricuspid regurgitation/trace mitral regurgitation. Right ventricular systolic pressure of 48 mm Hg. Echocardiogram of January 2024 had revealed: Ejection fraction of 40-45%, anterior/anteroseptal hypokinesia, biatrial enlargement, right ventricular systolic pressure 45 mm Hg. Echocardiogram October 28, 2023 had revealed mild concentric left ventricular hypertrophy, LVEF of 52% with mild diffuse hypokinesis, dilated RV/LA/RA, jyiy-fj-[id number] aortic insufficiency, mild MR, moderate TR and right ventricular systolic pressure of 60 mm Hg Echocardiogram of November 08, 2023 (performed in [facility]) had reported: LVEF of 50%, [id number] TR, mild aortic insufficiency and right ventricular systolic pressure of 49 mm Hg Echocardiogram of September 15, 2023 (performed and [facility]) revealed ejection fraction of 45-50% Echocardiogram of March 22, 2023 (performed in the office) revealed ejection fraction of 65-70%, mild concentric left ventricular hypertrophy, moderate biatrial enlargement, [id number] MR/TR, mild AI/PI and right ventricular systolic pressure of 66 mm Hg. Left heart catheterization on August 04, 2023 revealed: 1 vessel coronary artery disease and status post PCI (drug-eluting stent deployment of ostial LAD, LVEF of 60% with increased LVEDP, patent stent in mid LAD, type 2 pulmonary hypertension. CTA of lungs: 1. No evidence of pulmonary embolism. 2. CHF/ volume overload, with interstitial pulmonary edema, small bilateral pleural effusions, chest wall edema, and mild cardiomegaly. 3. Pgte-by-jwicaczp 3-vessel calcified coronary artery disease and mild aortic valve calcification. 4. Bilateral hilar, mediastinal, and supraclavicular lymphadenopathy, nonspecific though could be reactive or passive congestion. Consider follow-up CT in 3 months to re-evaluate this finding. 5. Persistent cystic mass in the tail of the pancreas without significant change. Follow-up MRI was previously recommended on 11/30/2024 Venous duplex of bilateral lower ext: IMPRESSION: NO SONOGRAPHIC EVIDENCE FOR DEEP VENOUS THROMBOSIS IN THE BILATERAL LOWER EXTREMITY VEINS. Venous duplex of bilateral upper ext: IMPRESSION: 1. Positive for Acute appearing deep vein thrombus in the right upper extremity internal jugular vein. 2. Positive for Acute Occlusive superficial femoral vein thrombus in the left upper extremity basilic vein. 3. Indeterminate hypoechoic structure adjacent to the right axillary vein which could reflect an indeterminate lymph node. Follow- up was recommended on the separately dictated same day CTA chest. ASSESSMENT: Acute hypoxemic respiratory failure Acute on chronic diastolic heart failure Concern for underlying COPD exacerbation Fluid overload, with known history of ESRD on HD Underlying history of type II pulmonary hypertension Anemia of chronic disease, in the setting of ESRD on HD Uncontrolled hypertension with evidence for hypertensive urgency Minimal/flat elevation of HS troponins, assessed to reflect type II physiology due to above Coronary artery disease, status post previous PCI's x 2 Presence of Medtronic Micra permanent pacemaker Previous history of provoked DVT Old history of underlying RBBB Old history of previous CVA Obstructive sleep apnea Diabetes mellitus Hyperlipidemia DVT: upper ext CARDIAC SUGGESTION FOR MANAGEMENT: Awaiting device interrogation (MDT) Recognizing clinical presentation/objective findings, ACS at this point is not considered Minimal/flat elevation of HS troponins are assessed to reflect type II physiology at this point No indication warranted for repeat ischemic workup at present time of admission Proceed with optimized medical therapy and aggressive risk factor modification Fluid volume management as per nephrology services via hemodialysis Proceed with close observation for overt signs of fluid overload Proceed with strict intakes, outputs, and daily weights Proceed with supplemental oxygen as warranted On empiric IV antibiotic therapy as per primary Avoidance of QTC prolonging agents advised Follow up Pulmonology recommendations Hydralazine 25mg twice daily Atorvastatin 40mg once daily Nifedipine 60mg once daily Oral Lasix Recognizing PCI > 1 year ago in a patient with chronic anemia with previous GI bleed found to have acute appearing DVT involving RUE requiring AC discontinuation of previous Aspirin 81mg daily can be justified with consideration of pursuing oral AC when stable. Initiated on low-dose Eliquis The above was discussed at length with daughter Teresa which she remains agreeable to the plan of care To proceed with close observation of HGB levels and for any overt signs of bleeding during the interim Transfuse to sustain HGB levels above 7.0 Patient does have appointment with [facility] as [facility] for further work up on previously discovered pancreatic tail cystic mass in March 2025. Evaluation and management of pancreatic findings as per primary team Consider GI/surgery evaluation for pancreatic tail cystic mass Consider Imaging of pancreas: MRI (as suggested by Radiology). PM is MRI conditional. Management of concurrent medical conditions per primary team Management of comorbidities as per primary team Proceed with close rate and rhythm surveillance Proceed with close hemodynamic surveillance Proceed with optimized blood pressure control Transfuse to sustain HGB level above 7.0 Sustain Magnesium level greater than 2.0 Sustain Potassium level greater than 4.0 Follow up renal function and electrolytes Management in telemetry Follow up weight loss sales consultant recommendations Will proceed to follow from a cardiac perspective Further recommendations per clinical progression All available diagnostic labs, EKG's, and images were personally reviewed Plan of care discussed with and agreed upon by patient / primary RN Prognosis: Guarded Thank you for allowing me to participate in the care of this patient. Further recommendations based on patients clinical course and progression, primary attending, and other consultants. Will continue to follow with primary attending. If you have any questions or concerns, please do not hesitate to contact me. A total of 55 minutes was spent reviewing the patient record, examining the patient, making a diagnostic and therapeutic plan, discussing this plan with medical personnel, following up on diagnostic studies and following the patient for clinical stability excluding any and all procedures. At least 50% of this time was spent in direct, [id number] contact. Dietary Evaluation Review Comments: Encourage and monitor PO intake to meet his needs Reinforce dietary sodium restrition Monitor cholesterol levels Expected Outcomes/Goals: No wt loss, fluid/electolyte in balance Plan discussed with: Patient BLANE STONER Lorenzo WORK MANAGER Mar 14, 2025 12:27
== END 2025-03-13 16:13 | disposition home health service (06) | DRG 177 ==
LOC: EDBD 11:06 → ER 11:06 → OVERFLOW 15:29 → TELE-WESTW 23:35
PROVIDERS: ADMIT Internal Medicine Geriatric Medicine; ATTEND Internal Medicine Geriatric Medicine
PROC: 5A09357 Assistance with Respiratory Ventilation, Less than 24 Consecutive Hours, Continuous Positive Airway Pressure (ICD-10-PCS; 2025-02-27)
PROC: 5A0935A Assistance with Respiratory Ventilation, Less than 24 Consecutive Hours, High Flow/Velocity Cannula (ICD-10-PCS; 2025-02-27)
PROC: 5A1D70Z Performance of Urinary Filtration, Intermittent, Less than 6 Hours Per Day (ICD-10-PCS; 2025-02-27)
PROC: 5A0935A Assistance with Respiratory Ventilation, Less than 24 Consecutive Hours, High Flow/Velocity Cannula (ICD-10-PCS; 2025-02-28)
PROC: 5A0935A Assistance with Respiratory Ventilation, Less than 24 Consecutive Hours, High Flow/Velocity Cannula (ICD-10-PCS; 2025-03-01)
PROC: 5A1D70Z Performance of Urinary Filtration, Intermittent, Less than 6 Hours Per Day (ICD-10-PCS; 2025-03-01)
PROC: 5A0935A Assistance with Respiratory Ventilation, Less than 24 Consecutive Hours, High Flow/Velocity Cannula (ICD-10-PCS; 2025-03-02)
PROC: 5A0935A Assistance with Respiratory Ventilation, Less than 24 Consecutive Hours, High Flow/Velocity Cannula (ICD-10-PCS; 2025-03-03)
PROC: 5A09357 Assistance with Respiratory Ventilation, Less than 24 Consecutive Hours, Continuous Positive Airway Pressure (ICD-10-PCS; 2025-03-03)
PROC: 5A1D70Z Performance of Urinary Filtration, Intermittent, Less than 6 Hours Per Day (ICD-10-PCS; 2025-03-05)
PROC: 0W9930Z Drainage of Right Pleural Cavity with Drainage Device, Percutaneous Approach (ICD-10-PCS; principal; 2025-03-07)
PROC: 5A1D70Z Performance of Urinary Filtration, Intermittent, Less than 6 Hours Per Day (ICD-10-PCS; 2025-03-07)
PROC: 5A1D70Z Performance of Urinary Filtration, Intermittent, Less than 6 Hours Per Day (ICD-10-PCS; 2025-03-08)
PROC: 5A1D70Z Performance of Urinary Filtration, Intermittent, Less than 6 Hours Per Day (ICD-10-PCS; 2025-03-09)
PROC: 5A1D70Z Performance of Urinary Filtration, Intermittent, Less than 6 Hours Per Day (ICD-10-PCS; 2025-03-10)
PROC: 5A1D70Z Performance of Urinary Filtration, Intermittent, Less than 6 Hours Per Day (ICD-10-PCS; 2025-03-12)
DX: J15.69 Pneumonia due to other Gram-negative bacteria (principal); I21.A1 Myocardial infarction type 2; I50.33 Acute on chronic diastolic (congestive) heart failure; N18.6 End stage renal disease; J96.21 Acute and chronic respiratory failure with hypoxia; I13.2 Hypertensive heart and chronic kidney disease with heart failure and with stage 5 chronic kidney disease, or end stage renal disease; I82.412 Acute embolism and thrombosis of left femoral vein; I82.621 Acute embolism and thrombosis of deep veins of right upper extremity; E87.1 Hypo-osmolality and hyponatremia; J44.0 Chronic obstructive pulmonary disease with (acute) lower respiratory infection; J91.8 Pleural effusion in other conditions classified elsewhere; J15.9 Unspecified bacterial pneumonia; Z20.822 Contact with and (suspected) exposure to COVID-19; D63.1 Anemia in chronic kidney disease; E78.2 Mixed hyperlipidemia; G47.33 Obstructive sleep apnea (adult) (pediatric); I25.10 Atherosclerotic heart disease of native coronary artery without angina pectoris; E11.22 Type 2 diabetes mellitus with diabetic chronic kidney disease; F03.90 Unspecified dementia, unspecified severity, without behavioral disturbance, psychotic disturbance, mood disturbance, and anxiety; I27.20 Pulmonary hypertension, unspecified; B19.20 Unspecified viral hepatitis C without hepatic coma; E11.51 Type 2 diabetes mellitus with diabetic peripheral angiopathy without gangrene; I35.8 Other nonrheumatic aortic valve disorders; I44.0 Atrioventricular block, first degree; I16.0 Hypertensive urgency; I45.10 Unspecified right bundle-branch block; Z99.81 Dependence on supplemental oxygen; Z86.73 Personal history of transient ischemic attack (TIA), and cerebral infarction without residual deficits; Z95.0 Presence of cardiac pacemaker; Z88.8 Allergy status to other drugs, medicaments and biological substances; Z87.891 Personal history of nicotine dependence; Z95.5 Presence of coronary angioplasty implant and graft; Z99.2 Dependence on renal dialysis; Z87.01 Personal history of pneumonia (recurrent); Z83.3 Family history of diabetes mellitus; Z82.49 Family history of ischemic heart disease and other diseases of the circulatory system; Z82.3 Family history of stroke; Z79.899 Other long term (current) drug therapy; Z79.82 Long term (current) use of aspirin; Z79.01 Long term (current) use of anticoagulants; Z79.4 Long term (current) use of insulin
CPT/HCPCS: 32555; 36415; 36600; 71045; 71275; 80048; 80053; 80074; 82805; 82962; 83735; 83880; 84484; 85025; 85379; 85610; 85730; 87070; 87071; 87077; 87081; 87186; 87205; 87426; 87804; 90935; 93005; 93970; 94640; 94667; 94668; 97110; 97116; 97163; 97530; 99291; G0378; J1815; J2405